=== PATIENT | female | born 1950 | race Caucasian/White ===

== ENCOUNTER → 2016-11-22 | Outpatient (CLI) | payer OTHER, MEDICARE ==
[2016-11-22 09:07] LABS: CH 27.3; CHCM 30.7; HCT 38.5 % (34.0-46.0); HDW 2.63; Hypochromasia Moderate; MCH 27.9 pg (25.0-35.0); MCHC 31.2 g/dL (31.0-37.0); MCV 89.2 fL (80.0-100.0); Mean Platelet Volume 7.1; RBC 4.32 m/uL (3.80-5.40); WBC 8.2 k/uL (3.8-10.6)
[2016-11-22 09:20] LABS: Calcium 9.5 mg/dL (8.4-10.2); Potassium 4.4 mmol/L (3.5-5.1); Total Bilirubin 0.7 mg/dL (0.2-1.3); Total Protein 7.3 g/dL (6.3-8.2); Uric Acid 8.7 mg/dL (3.7-7.4)
== END | disposition home or self-care (01) ==
LOC: LABWHC1 08:43
PROVIDERS: ATTEND Internal Medicine
DX: E87.8 Other disorders of electrolyte and fluid balance, not elsewhere classified (principal); D68.8 Other specified coagulation defects; R53.83 Other fatigue; E78.4 Other hyperlipidemia; M10.9 Gout, unspecified
CPT/HCPCS: 36415; 80053; 80061; 82306; 84550; 85027

== ENCOUNTER → 2017-07-16 | Outpatient (CLI) | payer OTHER ==
[2017-07-16 15:15] LABS: CH 28.4; CHCM 30.1; HCT 36.7 % (34.0-46.0); HDW 2.65; HGB 11.2 gm/dL (11.4-16.0); Hypochromasia Marked; MCH 29.1 pg (25.0-35.0); MCHC 30.7 g/dL (31.0-37.0); MCV 94.8 fL (80.0-100.0); Mean Platelet Volume 6.9; RBC 3.87 m/uL (3.80-5.40); RDW 15.5 % (11.5-15.5); WBC 8.1 k/uL (3.8-10.6)
[2017-07-16 15:25] LABS: Calcium 9.4 mg/dL (8.4-10.2)
== END | disposition home or self-care (01) ==
LOC: LABWHC1 14:36
PROVIDERS: ATTEND Internal Medicine
DX: E87.8 Other disorders of electrolyte and fluid balance, not elsewhere classified (principal); R53.83 Other fatigue
CPT/HCPCS: 36415; 80048; 85027

== ENCOUNTER → 2018-01-02 | Outpatient (CLI) | payer OTHER ==
[2018-01-02 13:03] LABS: HCT 35.3 % (34.0-46.0); HGB 11.2 gm/dL (11.4-16.0); Hypochromasia Slight; MCH 28.3 pg (25.0-35.0); MCHC 31.7 g/dL (31.0-37.0); MCV 89.3 fL (80.0-100.0); Mean Platelet Volume 7.4; Platelet Count 261 k/uL (150-450); RBC 3.96 m/uL (3.80-5.40); RDW 15.4 % (11.5-15.5); WBC 7.1 k/uL (3.8-10.6)
[2018-01-02 13:05] LABS: Albumin 3.8 g/dL (3.5-5.0); Calcium 9.7 mg/dL (8.4-10.2); Potassium 4.1 mmol/L (3.5-5.1); Total Bilirubin 0.4 mg/dL (0.2-1.3); Total Protein 6.7 g/dL (6.3-8.2)
== END | disposition home or self-care (01) ==
LOC: LABWHC1 12:05
PROVIDERS: ATTEND Internal Medicine
DX: E78.4 Other hyperlipidemia (principal); R53.83 Other fatigue; E87.8 Other disorders of electrolyte and fluid balance, not elsewhere classified; M10.9 Gout, unspecified
CPT/HCPCS: 36415; 80053; 80061; 84550; 85027

== ENCOUNTER → 2018-01-16 | Outpatient (CLI) | payer OTHER ==
[2018-01-16 12:50] LABS: Calcium 9.2 mg/dL (8.4-10.2)
== END ==
LOC: LABWHC1 11:32
PROVIDERS: ATTEND Internal Medicine
DX: E87.8 Other disorders of electrolyte and fluid balance, not elsewhere classified (principal)
CPT/HCPCS: 36415; 80048

== ENCOUNTER → 2018-01-26 | Outpatient (CLI) | payer OTHER ==
[2018-01-26 10:10] LABS: INR 1.3 (<1.2); Prothrombin Time 12.5 sec (9.0-12.0)
== END | disposition home or self-care (01) ==
LOC: LABWHC1 08:48
PROVIDERS: ATTEND Internal Medicine
DX: M79.1 Myalgia (principal)
CPT/HCPCS: 36415; 82550; 85610

== ENCOUNTER 2018-01-29 11:24 | Inpatient (IN) | payer OTHER, MEDICARE ==
--- NOTE | 2018-01-29 11:44 | ED ---
SOB HPI - General Chief Complaint: Shortness of Breath Stated Complaint: JONATHAN, POSS BLOOD CLOT Time Seen by Provider: 01/29/18 11:32 Source: patient, family Mode of arrival: wheelchair Limitations: no limitations - History of Present Illness Initial Comments: This 68-year-old white female presents with a complaint of some shortness of breath which is been present over the last 2 days. It has been present to a lesser degree for the last 2 weeks . She states that she feels very weak as well and at this time is unable to ambulate due to her weakness. She denies any chest pain, cough, or fevers. She does complain of some pain to her left calf region laterally. There is a history of previous DVT and PE. She normally is on Coumadin for this. She also has a clotting disorder. Her Coumadin was stopped this past week as she had a tooth pulled 2 days ago. She denies any other known Cardiologic or pulmonary pathology. She relates that the shortness of breath is better when she lies down flat and is worse when she sits up or tries to exert herself. No other modifying factors or complaints. She was sent in by her primary care physician to rule out the possibility of a blood clot. She denies any history of coronary artery disease or myocardial infarction. She states that she has never had a stress test or heart catheterization in the past. - Related Data Home Medications Medication Instructions Recorded Confirmed Allopurinol 100 mg PO DAILY 07/21/14 01/29/18 Warfarin [Coumadin] 2.5 mg PO AC-SUPPER 07/21/14 01/29/18 traMADol HCL [Tramadol HCl] 100 mg PO BID 07/21/14 01/29/18 Cholecalciferol [Vitamin D3] 1,000 unit PO DAILY 01/29/18 01/29/18 Meloxicam [Mobic] 15 mg PO DAILY 01/29/18 01/29/18 Sertraline [Zoloft] 50 mg PO DAILY 01/29/18 01/29/18 Allergies Allergy/AdvReac Type Severity Reaction Status Date / Time aspirin Allergy Rash/Hives Verified 01/29/18 12:24 codeine Allergy Itching Verified 01/29/18 12:24 Review of Systems ROS Statement: Those systems with pertinent positive or pertinent negative responses have been documented in the HPI. ROS Other: All systems not noted in ROS Statement are negative. Past Medical History Past Medical History: Cancer, Deep Vein Thrombosis (DVT), Hypertension, Osteoarthritis (OA), Pulmonary Embolus (PE) Additional Past Medical History / Comment(s): mthfr, uterine cancer, gout History of Any Multi-Drug Resistant Organisms: None Reported Past Surgical History: Hysterectomy, Orthopedic Surgery Additional Past Surgical History / Comment(s): plate and screws in right ankle Past Anesthesia/Blood Transfusion Reactions: No Reported Reaction Past Psychological History: No Psychological Hx Reported Smoking Status: Never smoker Past Alcohol Use History: None Reported Past Drug Use History: None Reported - Past Family History Mother Family Medical History: Cancer Additional Family Medical History / Comment(s): BREAST Father Family Medical History: Coronary Artery Disease (CAD) General Exam - General Exam Comments Initial Comments: GENERAL: The patient is well nourished and well hydrated. VITAL SIGNS: Heart rate, blood pressure, respiratory rate reviewed as recorded in nurse's notes. EYES: Pupils are round and reactive. Extraocular movements are intact. No conjunctival / lid redness or swelling. ENT: No external evidence of injury, swelling, or ecchymosis. Airway is patent. Throat is clear. NECK: Nontender. No swelling or evidence of injury. No subcutaneous emphysema. Trachea is midline. No thyroid mass. HEART: Regular rate and rhythm. Good peripheral pulses. LUNGS/CHEST: Breath sounds clear and equal bilaterally. No rales, rhonchi, or wheezes. No ecchymosis, subcutaneous emphysema, or tenderness. ABDOMEN: Abdomen soft without tenderness. No palpable masses or organomegaly. No peritoneal signs. No abdominal wall swelling or ecchymosis. Patient is morbidly obese. EXTREMITIES: There is minimal tenderness over the left lateral calf but no swelling noted. Normal muscle tone and function. No thoracolumbar tenderness. NEUROLOGIC: Sensation is grossly intact. Cranial nerve exam reveals face is symmetrical, tongue is midline, speech is clear. SKIN: No abrasions or ecchymosis is noted. No induration or masses noted. PSYCHIATRIC: Alert and oriented. Appropriate behavior and judgment. Limitations: no limitations Course Vital Signs 01/29/18 01/29/18 11:26 13:41 Temperature 97.8 F 97.8 F Pulse Rate 101 H 86 Respiratory 24 18 Rate Blood Pressure 146/84 132/60 O2 Sat by Pulse 99 98 Oximetry Medical Decision Making - Medical Decision Making The patient was seen and examined. All diagnostics are reviewed. An IV is established and she is placed on the rn cardiac. The EKG is completed and this does not show any ST-T wave changes noted with a normal sinus rhythm at a rate of 93. The MD intervals 144, QRS duration is 94, and the QTC intervals 479. This is compared to the 08/29/2014 EKG and appears to show improvement in the ST T-wave changes in leads 1 and aVL. The x-ray was read out as not showing any acute cardiopulmonary processes. The possibility of some cardiomegaly is plausible. She also had laboratory analysis which showed elevation of her renal function studies, elevation of cardiac enzymes, anemia, and decreased renal function. The lower extremity venous Doppler was negative for any evidence of DVT is visualized. The d-dimer is also elevated. It is felt as though she is at fairly high risk for the possibility of a pulmonary embolism as she is been off her Coumadin and her INR is only 1.3. Heparin is started. A computed tomography angiogram of the chest could not be done as the patient's renal function is poor. It is felt as though she may benefit from a VQ scan in the near future. It is felt as though the possibility of acute coronary syndrome certainly is possible as well. The case is discussed with primary care physician and he is agreeable with admission with cardiology to consult. - Lab Data Result diagrams: 01/29/18 12:00 01/29/18 12:00 Lab Results 01/29/18 01/29/18 01/29/18 Range/Units 12:00 12:00 12:00 WBC 7.9 (3.8-10.6) k/uL RBC 3.86 (3.80-5.40) m/uL Hgb 10.8 L (11.4-16.0) gm/dL Hct 34.1 (34.0-46.0) % MCV 88.3 (80.0-100.0) fL MCH 27.9 (25.0-35.0) pg MCHC 31.6 (31.0-37.0) g/dL RDW 15.5 (11.5-15.5) % Plt Count 310 (150-450) k/uL Neutrophils % 80 % Lymphocytes % 12 % Monocytes % 5 % Eosinophils % 0 % Basophils % 0 % Neutrophils # 6.3 (1.3-7.7) k/uL Lymphocytes # 1.0 (1.0-4.8) k/uL Monocytes # 0.4 (0-1.0) k/uL Eosinophils # 0.0 (0-0.7) k/uL Basophils # 0.0 (0-0.2) k/uL PT (9.0-12.0) sec INR (<1.2) APTT (22.0-30.0) sec D-Dimer (<0.60) mg/L FEU Sodium 143 (137-145) mmol/L Potassium 3.9 (3.5-5.1) mmol/L Chloride 105 (98-107) mmol/L Carbon Dioxide 25 (22-30) mmol/L Anion Gap 13 mmol/L BUN 30 H (7-17) mg/dL Creatinine 1.76 H (0.52-1.04) mg/dL Est GFR (CKD-EPI)AfAm 33 (>60 ml/min/1.73 sqM) Est GFR (CKD-EPI)NonAf 29 (>60 ml/min/1.73 sqM) Glucose 110 H (74-99) mg/dL Calcium 9.6 (8.4-10.2) mg/dL Total Bilirubin 0.5 (0.2-1.3) mg/dL AST 28 (14-36) U/L ALT 28 (9-52) U/L Alkaline Phosphatase 50 (38-126) U/L Total Creatine Kinase 99 (30-135) U/L CK-MB (CK-2) 2.5 H* (0.0-2.4) ng/mL CK-MB (CK-2) Rel Index 2.5 Troponin I 0.037 H* (0.000-0.034) ng/mL NT-Pro-B Natriuret Pep pg/mL Total Protein 6.4 (6.3-8.2) g/dL Albumin 3.9 (3.5-5.0) g/dL 01/29/18 01/29/18 Range/Units 12:00 12:00 WBC (3.8-10.6) k/uL RBC (3.80-5.40) m/uL Hgb (11.4-16.0) gm/dL Hct (34.0-46.0) % MCV (80.0-100.0) fL MCH (25.0-35.0) pg MCHC (31.0-37.0) g/dL RDW (11.5-15.5) % Plt Count (150-450) k/uL Neutrophils % % Lymphocytes % % Monocytes % % Eosinophils % % Basophils % % Neutrophils # (1.3-7.7) k/uL Lymphocytes # (1.0-4.8) k/uL Monocytes # (0-1.0) k/uL Eosinophils # (0-0.7) k/uL Basophils # (0-0.2) k/uL PT 12.1 H (9.0-12.0) sec INR 1.3 H (<1.2) APTT 23.8 (22.0-30.0) sec D-Dimer 0.98 H (<0.60) mg/L FEU Sodium (137-145) mmol/L Potassium (3.5-5.1) mmol/L Chloride (98-107) mmol/L Carbon Dioxide (22-30) mmol/L Anion Gap mmol/L BUN (7-17) mg/dL Creatinine (0.52-1.04) mg/dL Est GFR (CKD-EPI)AfAm (>60 ml/min/1.73 sqM) Est GFR (CKD-EPI)NonAf (>60 ml/min/1.73 sqM) Glucose (74-99) mg/dL Calcium (8.4-10.2) mg/dL Total Bilirubin (0.2-1.3) mg/dL AST (14-36) U/L ALT (9-52) U/L Alkaline Phosphatase (38-126) U/L Total Creatine Kinase (30-135) U/L CK-MB (CK-2) (0.0-2.4) ng/mL CK-MB (CK-2) Rel Index Troponin I (0.000-0.034) ng/mL NT-Pro-B Natriuret Pep 14425 pg/mL Total Protein (6.3-8.2) g/dL Albumin (3.5-5.0) g/dL Disposition Clinical Impression: Dyspnea, Pain of left calf, Hypertension, Morbid obesity, Weakness, Inability to walk, History of pulmonary embolism, History of DVT (deep vein thrombosis), Clotting disorder, Subtherapeutic international normalized ratio (INR), KATIA ( acute kidney injury), Elevated troponin, NSTEMI (non-ST elevated myocardial infarction), Anemia, Elevated d-dimer Disposition: ADMITTED IP TO THIS HOSP Condition: Fair Is patient prescribed a controlled substance at d/c from ED?: No Time of Disposition: 14:02 Decision Date: 01/29/18 Decision Time: 14:02
[2018-01-29 12:10] LABS: Basophils % (A) 0 %; Eosinophils % (A) 0 %; HCT 34.1 % (34.0-46.0); HGB 10.8 gm/dL (11.4-16.0); Lymphocytes % (A) 12 %; MCH 27.9 pg (25.0-35.0); MCHC 31.6 g/dL (31.0-37.0); MCV 88.3 fL (80.0-100.0); Mean Platelet Volume 7.9; Monocytes # (A) 0.4 k/uL (0-1.0); Monocytes % (A) 5 %; Neutrophils # (A) 6.3 k/uL (1.3-7.7); Neutrophils % (A) 80 %; Platelet Count 310 k/uL (150-450); RBC 3.86 m/uL (3.80-5.40); RDW 15.5 % (11.5-15.5); WBC 7.9 k/uL (3.8-10.6)
[2018-01-29 12:22] LABS: Albumin 3.9 g/dL (3.5-5.0); Calcium 9.6 mg/dL (8.4-10.2); Potassium 3.9 mmol/L (3.5-5.1); Total Bilirubin 0.5 mg/dL (0.2-1.3); Total Protein 6.4 g/dL (6.3-8.2)
[2018-01-29 12:27] LABS: INR 1.3 (<1.2); Partial Thromboplastin Time 23.8 sec (22.0-30.0); Prothrombin Time 12.1 sec (9.0-12.0)
[2018-01-29 12:30] LABS: D-Dimer 0.98 mg/L FEU (<0.60)
--- NOTE | 2018-01-29 12:33 | XR ---
EXAMINATION TYPE: XR chest 2V DATE OF EXAM: 01/29/2018 COMPARISON: None HISTORY: Lower extremity weakness and numbness TECHNIQUE: Frontal and lateral views of the chest are obtained. FINDINGS: Copious soft tissues have a gradient effect partially obscuring the lower lungs. No focal consolidation, pleural effusion or pneumothorax is seen. Cardiomediastinal silhouette is enlarged. Mi ld acromioclavicular arthropathy and moderate degenerative changes of the thoracic spine are noted. N o sizable pleural effusion or pneumothorax. IMPRESSION: No acute cardiopulmonary process.
[2018-01-29 12:43] LABS: Creatine Kinase MB 2.5 ng/mL (0.0-2.4)
[2018-01-29 12:44] LABS: Troponin I 0.037 ng/mL (0.000-0.034)
--- NOTE | 2018-01-29 13:42 | US ---
EXAMINATION TYPE: US venous doppler duplex LE DATE OF EXAM: 01/29/2018 1:26 PM COMPARISON: NONE CLINICAL HISTORY: Pain. Patient states she was off coumadin for a few days for dental procedure. Lt leg is sore. Hx of left popliteal vn DVT. Difficulty breathing. SIDE PERFORMED: Bilateral TECHNIQUE: The lower extremity deep venous system is examined utilizing real time linear array sonog valeria with graded compression, doppler sonography and color-flow sonography. VESSELS IMAGED: External Iliac Vein (EIV) Common Femoral Vein Deep Femoral Vein Greater Saphenous Vein * Femoral Vein Popliteal Vein Small Saphenous Vein * Proximal Calf Veins (* superficial vessels) Limited exam due to patient body habitus Right Leg: Negative for DVT Left Leg: Negative for DVT Grayscale, color doppler, spectral doppler imaging performed of the deep veins of the lower extremiti es. There is normal flow, compressibility, vascular waveforms. IMPRESSION: No evident deep venous thrombosis at or above the knees, technologist reports a somewha t limited exam, consider follow-up as indicated in 24 to 48 hours
[2018-01-29] MEDS ORDERED: HEPARIN SODIUM,PORCINE 5,000 UNIT/ML 1 ML VIAL IV PRN (14:02)
[2018-01-29] MEDS ORDERED: HEPARIN SODIUM,PORCINE 10,000 UNIT/ML 1 ML VIAL IV ONE (14:02)
[2018-01-29] MEDS ORDERED: NITROGLYCERIN OINT 1 INCH/GM PACKET TOPICAL STA (14:04)
[2018-01-29] MEDS ORDERED: NITROGLYCERIN SL TABS 0.4 MG TAB SUBLINGUAL PRN (14:06)
[2018-01-29] MEDS: HEPARIN SOD,PORK IN 0.45% NACL 25,000 UNIT in 0.45% NACL 1 500ML.BAG IV SCH (14:39)
--- NOTE | 2018-01-29 16:28 | NM ---
EXAMINATION TYPE: NM pul vent and perfuse DATE OF EXAM: 01/29/2018 COMPARISON: 01/29/2018 chest x-ray HISTORY: Lower extremity weakness vomiting, difficulty breathing TECHNIQUE: Utilizing inhalation of 39.0 mCi Tc 99m DTPA aerosol and intravenous injection of 5.21 mC i of Tc 99m MAA, ventilation and perfusion images are acquired post injection in multiple projections . FINDINGS: There is a fixed defect the posterior lung. Moderate or large mismatched defects are not evident. No triple matched defect is evident. IMPRESSION: Low probability for pulmonary embolism based on PIOPED 2 criteria.
[2018-01-29] MEDS ORDERED: WARFARIN 2.5 MG TAB PO SCH (17:30)
[2018-01-29 18:42] LABS: Creatine Kinase MB 2.4 ng/mL (0.0-2.4)
[2018-01-29 18:49] LABS: Troponin I 0.043 ng/mL (0.000-0.034)
[2018-01-29] MEDS: traMADol 50 MG TAB PO SCH (21:42)
[2018-01-29] MEDS: FAMOTIDINE 20 MG/2 ML VIAL IV SCH (21:42)
--- NOTE | 2018-01-29 21:58 | HP ---
HISTORY AND PHYSICAL Mrs. Pal is a 68-year-old female who presented to the emergency room with a complaint of shortness of breath. HISTORY OF PRESENT ILLNESS: The patient states that the last couple of days she has become more and more short of breath with minimal exertion. She has also had marked weakness over the past 2- 3 weeks, with it getting harder to get up and ambulate with weakness, shortness of breath. She denies any fever, chills or cough and actually denied any chest pain associated with this. Basically patient does have a previous history of a deep vein thrombosis and a pulmonary embolus in the past, for which she has been on Coumadin but had to stop that last week because of a dental procedure. She did resume her Coumadin, though, on Friday. The patient does have an underlying history of morbid obesity along with hypertension and previous history of deep vein thrombophlebitis and pulmonary embolus in the past. The patient had a total hysterectomy for uterine cancer approximately 4 years previous. She has some diffuse degenerative joint disease and history of gout in the past. No definite history of myocardial infarction, diabetes or stroke. The patient has a history of rash and hives with ASPIRIN and also itching with CODEINE in the past but has been able to tolerate tramadol at home for pain. HOME MEDICATIONS: 1. Mobic 15 mg daily. 2. Zoloft 50 mg daily. 3. Allopurinol 100 mg daily. 4. Coumadin 2.5 mg daily. 5. Tramadol 100 mg twice a day. 6. Vitamin D3 1000 units daily. REVIEW OF SYSTEMS: Negative for any unusual headache. She has had some nausea but no vomiting. Once again, no fever, chills, cough or chest pain. Denied any urinary or bowel symptomatology. She has had some increasing edema and some villeda pain, but no marked swelling. No hemoptysis. No hematuria or hematochezia. Review of systems is negative for any unusual headache or visual disturbance. No fever or chills. No new neurological symptomatology. PAST SURGICAL HISTORY: 1. Previous hysterectomy. 2. Right ankle surgery with plate and screws inserted. FAMILY HISTORY: Positive for diabetes but negative for heart disease. SOCIAL HISTORY: The patient has no history of smoking. 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 Lives with her locally in the area in [place]. No history of any excessive alcohol intake. PHYSICAL EXAMINATION: Temperature 97.8, pulse 89, respiration 16, blood pressure 126/56. She is 99% on 2 L. Head and neck exam is unremarkable. LUNGS: Generally clear, although diminished at bases with heart tones being regular without definite murmurs or rubs. Breast exam did not reveal any definitive palpable lesions. ABDOMEN: Markedly obese but soft. No rebound, guarding or masses detected. Extremities revealed some mild erythema of the distal legs bilaterally which were nontender. Homans sign was negative. Minimal pedal edema. Neurologically, she was alert. Cranial nerves intact. Moving all extremities without focal deficits noted. LAB TESTS: White count of 7.9, hemoglobin 10.8, and a platelet count of 310. INR still only 1.3, subtherapeutic. PTT 23.9 and her D-dimer was slightly elevated at 0.98. Sodium is 143 with a potassium of 3.9, BUN of 30 with creatinine 1.76, giving her a GFR of 29. Blood sugar 110. CK-MB is 99 with a 2.5 CK-MB. Her troponin was 0.037 and shaggy to 0.043. BNP markedly elevated at 12,300. Albumin was 3.9. Testing revealed her chest x-ray to show no acute cardiopulmonary process, but there did appear to be some cardiomegaly. No definite sizable pleural effusion was noted. EKG showed a normal sinus rhythm, no definite ischemic changes; poor R-wave progression anteriorly noted. Patient had venous Doppler studies performed, and although somewhat inadequate studies, they were ruled negative for DVT bilaterally. Also a V/Q scan was performed, as with her renal failure, CT scan with contrast was precluded. V/Q scan showed low probability of pulmonary embolus. IMPRESSION: This is a lady with increasing shortness of breath and elevated BNP and mildly elevated troponins. We will rule out underlying ischemic heart disease. At this point there is no definite evidence for DVT or pulmonary embolus. Patient does have severe underlying morbid obesity along with previous history of DVT and pulmonary embolus; also has a history of hypertension and acute on chronic renal failure along with history of previous hysterectomy for uterine cancer and hypertension. PLAN: At this point patient to be placed on heparin. We will continue to hold Coumadin for now, pending cardiology opinion in the morning. Repeat EKG and enzymes. Echocardiogram and further recommendations and treatment pending clinical response and results of above. If she stabilizes and is cleared by Cardiology, then we will proceed with further physical and occupational therapy to assess underlying weakness and ability to return to independent living or not. MMVON / CHELAN: [id number] / MTDD
[2018-01-30] MEDS: NITROGLYCERIN OINT 1 INCH/GM PACKET TOPICAL SCH ×5 (03:34→23:14)
[2018-01-30 04:05] LABS: Basophils % (A) 0 %; Eosinophils # (A) 0.2 k/uL (0-0.7); Eosinophils % (A) 3 %; HCT 29.8 % (34.0-46.0); Hypochromasia Moderate; Lymphocytes # (A) 1.6 k/uL (1.0-4.8); Lymphocytes % (A) 26 %; MCH 27.3 pg (25.0-35.0); MCHC 30.3 g/dL (31.0-37.0); MCV 89.9 fL (80.0-100.0); Mean Platelet Volume 7.6; Monocytes # (A) 0.4 k/uL (0-1.0); Monocytes % (A) 6 %; Neutrophils # (A) 4.1 k/uL (1.3-7.7); Neutrophils % (A) 64 %; Platelet Count 238 k/uL (150-450); RBC 3.31 m/uL (3.80-5.40); RDW 15.7 % (11.5-15.5); WBC 6.4 k/uL (3.8-10.6)
[2018-01-30] MEDS: HEPARIN SOD,PORK IN 0.45% NACL 25,000 UNIT in 0.45% NACL 1 500ML.BAG IV SCH ×3 (04:40→23:09)
[2018-01-30 04:44] LABS: Creatine Kinase MB 1.8 ng/mL (0.0-2.4)
[2018-01-30 04:46] LABS: Troponin I 0.047 ng/mL (0.000-0.034)
[2018-01-30 05:03] LABS: C Reactive Protein 15.4 mg/L (<10.0); Magnesium 1.5 mg/dL (1.6-2.3)
--- NOTE | 2018-01-30 07:51 | ECHOF ---
Referral Reason:sob MEASUREMENTS -------- HEIGHT: 157.5 cm WEIGHT: 94.8 kg BP: 132/60 RVIDd: 2.3 cm (< 3.3) IVSd: 1.1 cm (0.6 - 1.1) LVIDd: 6.1 cm (3.9 - 5.3) LVPWd: 1.1 cm (0.6 - 1.1) IVSs: 1.3 cm LVIDs: 5.4 cm LVPWs: 1.3 cm LA Diam: 4.5 cm (2.7 - 3.8) LAESV Index (A-L): 50.48 ml/m Ao Diam: 2.7 cm (2.0 - 3.7) LA Diam: 3.8 cm (2.7 - 3.8) MV EXCURSION: 14.751 mm (> 18.000) MV EF SLOPE: 62 mm/s (70 - 150) EPSS: 2.3 cm MV E Iker: 0.47 m/s MV DecT: 204 ms MV A Iker: 0.67 m/s MV E/A Ratio: 0.70 RAP: 5.00 mmHg RVSP: 31.30 mmHg FINDINGS -------- Sinus rhythm. Morbid Obesity The left ventricle is moderately dilated. Left ventricular wall thickness is normal. There is mod erate global hypokinesis of LV . Overall left ventricular systolic function is moderate-severely im paired with, an EF between 30 - 35 %. Inferior Hypokinesis The right ventricle is normal in size. The left atrium is mildly dilated. LA is severely dilated >40 ml/m2 The right atrial size is normal. Lumason used The aortic valve was not well visualized. Mild mitral regurgitation is present. Mild tricuspid regurgitation present. There is no evidence of pulmonary hypertension. The right v entricular systolic pressure, as measured by Doppler, is 31.30mmHg. The pulmonic valve was not well visualized. The aortic root size is normal. There is no pericardial effusion. CONCLUSIONS -------- 1. Morbid Obesity 2. The left ventricle is moderately dilated. 3. Left ventricular wall thickness is normal. 4. There is moderate global hypokinesis of LV . 5. Overall left ventricular systolic function is moderate-severely impaired with, an EF between 30 - 35 %. 6. Inferior Hypokinesis 7. The left atrium is mildly dilated. 8. LA is severely dilated >40 ml/m2 9. Lumason used 10. The aortic valve was not well visualized. 11. Mild mitral regurgitation is present. 12. Mild tricuspid regurgitation present. 13. There is no evidence of pulmonary hypertension. 14. The right ventricular systolic pressure, as measured by Doppler, is 31.30mmHg. 15. The pulmonic valve was not well visualized. 16. The aortic root size is normal. 17. There is no pericardial effusion. VOLUNTEER SPECIALIST: Collette Chaidez RDCS
--- NOTE | 2018-01-30 07:59 | CONS ---
CONSULTATION Mrs. Pal is a 68-year-old female with known history of hypertension, prior history of DVT and pulmonary embolism 9 years ago following DVT in the knee, who presented with symptoms of a week of dyspnea, progressive fatigue, not associated with any other symptoms. She has no prior cardiac history. She has no clear PND or orthopnea. She has chronic peripheral edema. She has occasional dizziness but no palpitation or syncope. She has no prior cardiac history. In the emergency room, she was noted to have mild elevation of troponin and elevation of NT proBNP. The patient is not very active physically. She has no recent cardiac workup. Her coronary risk factors are remarkable for hypertension. She is nondiabetic, nonsmoker and not hyperlipidemic. REVIEW OF SYSTEMS: RESPIRATORY SYSTEM: She has dyspnea on exertion, but no history of obstructive lung disease. No recent wheezing or cough. GI SYSTEM: No recent GI bleeding. No peptic ulcer disease. SYSTEM: No dysuria or hematuria. NERVOUS SYSTEM: No history of stroke or seizure. MEDICATIONS: Medications at home included Coumadin, tramadol, Zoloft mg daily, Mobic 15 mg daily, vitamin D and allopurinol. She was off the Coumadin for 4 days to undergo tooth extraction. ALLERGIES: Allergy to ASPIRIN, which causes hives. PHYSICAL EXAMINATION: She is a 68-year-old female, alert, oriented, in no apparent distress, lying supine. Blood pressure 127/58 with the heart rate in the 80s. HEAD: Normocephalic. EYES: Sclerae anicteric. NECK: Good carotid upstroke. No bruit. Unable to evaluate jugular venous pressure. LUNGS: Clear to auscultation. HEART: Regular rate and rhythm, S1, S2. No S3 with systolic murmur ejection type heard at the bases and no diastolic murmur. ABDOMEN: Soft, obese. Positive bowel sounds. No organomegaly. EXTREMITIES: No edema, +2 distal pulses. LAB DATA: Lab data revealed a hemoglobin of 10.8 on admission, 9.0 today. Her D-dimer 0.98. BUN and creatinine 30 and 1.76. Potassium 3.9. Troponin 0.037, 0.043 and 0.047. Her NT proBNP is 12,300. Cholesterol 138, LDL of 64. TSH 0.98. EKG revealed a sinus mechanism with a normal axis and intervals. No acute changes. V/Q scan revealed no evidence pulmonary embolism. Chest x-ray revealed no acute infiltrate. IMPRESSION: 1. Progressive dyspnea of unclear etiology with an elevation of the NT proBNP yet clinically, she has no symptoms of congestive heart failure and her x-ray is not consistent with that. 2. Mild elevation in troponin of unclear etiology. Patient has no symptoms of chest pain and her EKG shows no significant changes. The possibility of non ST-segment elevation myocardial infarction could not be totally excluded. 3. Remote history of pulmonary embolism with no evidence recurrence. 4. Anemia. 5. Chronic kidney disease. 6. Morbid obesity. RECOMMENDATION: From the cardiac standpoint, I will obtain echocardiogram with Doppler to evaluate her left ventricular systolic function. In the meantime, I will continue present therapy. I will add to her regimen a beta armin. The patient may require coronary angiography, but that carries a high risk in view of her renal function. We will await the results of the echo and depending on her progress, further recommendation will be made. Thank you for this consult. We will follow with you. NAN / CHELAN: [id number] /
--- NOTE | 2018-01-30 08:12 | P.PN ---
Progress Note - Text The patient is a 68-year-old female presented yesterday with shortness of breath. The patient has had a previous history of DVT and pulmonary embolus and had been off her Coumadin due to a dental procedure but workup with venous Doppler and VQ scan has been negative. Patient did have an elevated BNP but no definite clinical signs of overt congestive heart failure. Patient is obese. Also with degenerative joint disease. Has had marked difficulty ambulating at home. This morning she denies any chest pain. No unusual shortness of breath at rest. No nausea or vomiting. Patient is complaining of right hip pain. Temperature is 97.8 with a pulse of 87 respirations 18. Blood pressure is 127/ 58 and she is 95% saturated. Lung and heart examination is clear and regular at this time. Abdomen is nontender. No marked edema but mild erythema of the distal legs. No focal neurological deficits. Laboratory White count is 6.4 with hemoglobin has dropped from 10.8 down to 9.0. Platelets are 238. Her PTT was elevated on heparin at 113. Magnesium slightly low at 1.5. Troponins are mildly elevated the last 1.047. C-reactive protein is 15.4. Her LDL is low at 64. Impressions and plans Patient has been seen by cardiology. She does have a markedly elevated BNP. No definite overt symptoms or signs of congestive heart failure other than her shortness of breath. She also has mildly elevated troponins. She also now has a mild anemia of unknown etiology at this time. History of hypertension and chronic kidney disease. At this time we'll await results of echocardiogram. Consultation will be placed with nephrology. We will await for patient to be more stable in terms of engaging physical therapy and also obtaining right hip x-ray. We'll await further recommendations from cardiology and nephrology as discussed with patient at bedside. Repeat labs ordered for tomorrow. Continue to hold Coumadin.
[2018-01-30] MEDS: CHOLECALCIFEROL 1,000 UNIT TAB PO SCH (08:32)
[2018-01-30] MEDS: SERTRALINE 50 MG TAB PO SCH (08:32)
[2018-01-30] MEDS: ALLOPURINOL 100 MG TAB PO SCH (08:32)
[2018-01-30] MEDS: traMADol 50 MG TAB PO SCH ×2 (08:37→20:52)
[2018-01-30] MEDS: FAMOTIDINE 20 MG/2 ML VIAL IV SCH (08:43)
[2018-01-30] MEDS: METOPROLOL TARTRATE 25 MG TAB PO SCH ×2 (08:43→20:55)
[2018-01-30] MEDS ORDERED: MELOXICAM 7.5 MG TAB PO SCH (09:00)
[2018-01-30] MEDS ORDERED: ASPIRIN 81 MG PO SCH (09:00)
[2018-01-30] MEDS ORDERED: MAGNESIUM SULFATE-D5W PMX 1 GM in DEXTROSE/WATER 1 100ML.BAG IVPB ONE (13:00)
--- NOTE | 2018-01-30 13:38 | P.NPCON ---
History of Present Illness - Reason for Consult acute renal failure, chronic renal failure - History of Present Illness Reason for consultation: Acute kidney injury on chronic kidney disease History of present illness: Patient is a 68-year-old female seen in renal consultation for acute kidney injury on chronic kidney disease. Patient has chronic kidney disease stage III. Baseline creatinine near 1.4-1.5. It was elevated at 1.76 on admission yesterday. Patient presented to the hospital with dyspnea and generalized weakness. Patient states she gets dyspneic mostly with exertion and also feels quite weak due to pain in her hips. She does have history of arthritis and states she takes Mobic on a daily basis. She's been taking Mobic for the last 5 years at least. No evidence of DVT was noted. Low probability of PE was noted on VQ scan. Chest x-ray revealed no evidence of fluid overload. She is noted to have systolic heart failure with ejection fraction of 30-35%. She denies edema. Denies orthopnea or PND. Oral intake is good. No vomiting or diarrhea. Denies family history of renal disease. No history of diabetes. Overall her dyspnea is improved. Hemodynamically stable. Vital signs are stable. General: The patient appeared well nourished and normally developed. HEENT: Head exam is unremarkable. Neck is without jugular venous distension. LUNGS: Lungs are clear to auscultation and percussion. Breath sounds decreased. HEART: Rate and Rhythm are regular. First and second heart sounds normal. No murmurs, rubs or gallops. ABDOMEN: Abdominal exam reveals normal bowel sounds. Non-tender and non- distended. No evidence of peritonitis. EXTREMITITES: No clubbing, cyanosis, or edema. Mild erythema of the ankle noted. Past Medical History Past Medical History: Blood Disorder, Cancer, Deep Vein Thrombosis (DVT), Hypertension, Osteoarthritis (OA), Pulmonary Embolus (PE) Additional Past Medical History / Comment(s): mthfr, uterine cancer(sx only), gout, anemia. uses 4 prong cane when up. History of Any Multi-Drug Resistant Organisms: None Reported Past Surgical History: Hysterectomy, Orthopedic Surgery Additional Past Surgical History / Comment(s): plate and screws in right ankle, picc line-since removed, cortisone injections to knees Past Anesthesia/Blood Transfusion Reactions: No Reported Reaction Additional Past Anesthesia/Blood Transfusion Reaction / Comment(s): past blood transfusions-no reactions Smoking Status: Never smoker - Past Family History Mother Family Medical History: Cancer Additional Family Medical History / Comment(s): BREAST Father Family Medical History: Coronary Artery Disease (CAD) Medications and Allergies Home Medications Medication Instructions Recorded Confirmed Type Allopurinol 100 mg PO DAILY 07/21/14 01/29/18 History Warfarin [Coumadin] 2.5 mg PO AC-SUPPER 07/21/14 01/29/18 History traMADol HCL [Tramadol HCl] 100 mg PO BID 07/21/14 01/29/18 History Cholecalciferol [Vitamin D3] 1,000 unit PO DAILY 01/29/18 01/29/18 History Meloxicam [Mobic] 15 mg PO DAILY 01/29/18 01/29/18 History Sertraline [Zoloft] 50 mg PO DAILY 01/29/18 01/29/18 History Allergies Allergy/AdvReac Type Severity Reaction Status Date / Time aspirin Allergy Rash/Hives Verified 01/29/18 12:24 codeine Allergy Itching Verified 01/29/18 12:24 Physical Exam Vitals: Vital Signs Temp Pulse Pulse Resp BP BP Pulse Ox 01/30/18 03:29 97.8 F 87 18 127/58 95 01/30/18 00:05 98.4 F 96 18 106/59 94 L 01/29/18 20:00 98.6 F 92 18 123/59 94 L 01/29/18 16:40 98.3 F 89 16 126/56 99 01/29/18 16:37 99 01/29/18 16:02 97.7 F 86 18 146/76 100 01/29/18 13:41 97.8 F 86 18 132/60 98 Intake and Output 01/29/18 01/30/18 01/30/18 22:59 06:59 14:59 Intake Total 556.633 187.123 140.406 Output Total 200 Balance 556.633 -12.877 140.406 Intake: Intake, IV Titration 316.633 187.123 140.406 Amount Heparin Sod,Pork in 0.45% 316.633 187.123 140.406 NaCl 25,000 unit In 0.45 % NaCl 1 500ml.bag @ 16. 41 UNITS/KG/HR 46 mls/hr IV .[id number] [facility] Rx#: [id number] Oral 240 Output: Urine 200 Other: Voiding Method Bedside Commode Bedside Commode # Voids 1 1 # Bowel Movements 0 Weight 133.1 kg Results - Lab Results Most recent lab results Calcium 9.6 mg/dL (8.4-10.2) 01/29/18 12:00 Magnesium 1.5 mg/dL (1.6-2.3) L 01/30/18 03:35 01/30/18 03:35 01/29/18 12:00 Assessment and Plan Plan: Assessment: #1. Nonoliguric acute kidney injury mostly prerenal secondary to nonsteroidals. Creatinine 1.76 on admission yesterday. #2. Chronic kidney disease stage III with baseline creatinine near 1.5. Etiology is likely chronic interstitial nephritis from long-term use of NSAIDs. #3. Systolic CHF with ejection fraction 30-35%. Currently appears compensated. #4. Anemia. Rule out iron deficiency. #5. Dyspnea with exertion. No evidence of acute coronary syndrome. Generalized debility along with arthritis and obesity are contribute factors. No evidence of fluid overload. No evidence of PE. #6. Morbid obesity. Plan: Encourage oral intake. Check iron studies. Avoid nephrotoxic agents and hypotensive episodes. I discussed with her the impairment of renal function with long-term use of nonsteroidals. I advised her to take Mobic less frequently and to try Tylenol arthritis instead. Patient understands. Repeat electrolytes in the morning. Thank you for the consultation. I will continue to follow patient with you during her hospital stay.
[2018-01-30 18:53] LABS: Iron Saturation 21.22 (12.00-45.00)
[2018-01-30] MEDS: FAMOTIDINE 20 MG TAB PO SCH (20:55)
[2018-01-30 22:23] LABS: Appearance,Urine Cloudy (Clear); Bacteria,Urine Many /hpf; Bilirubin,Urine Negative (Negative); Blood,Urine Negative (Negative); Color,Urine Yellow; Glucose,Urine (UA) Negative (Negative); Hyaline Casts,Urine 3 /lpf (0-2); Ketones,Urine Negative (Negative); Leukocyte Esterase,Urine Small (Negative); Mucus,Urine Rare /hpf; Nitrite,Urine Negative (Negative); PH, Urine 5.5 (5.0-8.0); Protein,Urine Trace (Negative); RBC,Urine <1 /hpf (0-5); Specific Gravity,Urine 1.021 (1.001-1.035); Squamous Epithelial Cell,Urine 20 /hpf (0-4); Urobilinogen,Urine <2.0 mg/dL (<2.0); WBC,Urine 5 /hpf (0-5)
[2018-01-31] MEDS: NITROGLYCERIN OINT 1 INCH/GM PACKET TOPICAL SCH ×2 (05:41→11:41)
[2018-01-31 06:02] LABS: Basophils % (A) 1 %; Eosinophils # (A) 0.2 k/uL (0-0.7); Eosinophils % (A) 2 %; HCT 34.4 % (34.0-46.0); HGB 10.7 gm/dL (11.4-16.0); Hypochromasia Slight; Lymphocytes # (A) 1.5 k/uL (1.0-4.8); Lymphocytes % (A) 19 %; MCH 28.3 pg (25.0-35.0); MCV 91.3 fL (80.0-100.0); Mean Platelet Volume 7.4; Monocytes # (A) 0.4 k/uL (0-1.0); Monocytes % (A) 6 %; Neutrophils # (A) 5.5 k/uL (1.3-7.7); Neutrophils % (A) 70 %; Platelet Count 285 k/uL (150-450); RBC 3.77 m/uL (3.80-5.40); RDW 15.6 % (11.5-15.5); WBC 7.7 k/uL (3.8-10.6)
[2018-01-31 06:35] LABS: Calcium 9.8 mg/dL (8.4-10.2); Magnesium 1.8 mg/dL (1.6-2.3); Potassium 4.7 mmol/L (3.5-5.1)
[2018-01-31] MEDS: METOPROLOL TARTRATE 25 MG TAB PO SCH ×2 (08:43→20:55)
[2018-01-31] MEDS: FAMOTIDINE 20 MG TAB PO SCH ×2 (08:43→20:55)
[2018-01-31] MEDS: ALLOPURINOL 100 MG TAB PO SCH (08:43)
[2018-01-31] MEDS: SERTRALINE 50 MG TAB PO SCH (08:43)
[2018-01-31] MEDS: CHOLECALCIFEROL 1,000 UNIT TAB PO SCH (08:43)
[2018-01-31] MEDS: HEPARIN SOD,PORK IN 0.45% NACL 25,000 UNIT in 0.45% NACL 1 500ML.BAG IV SCH (08:44)
[2018-01-31] MEDS: traMADol 50 MG TAB PO SCH ×2 (08:46→20:55)
--- NOTE | 2018-01-31 09:57 | P.PN ---
Progress Note - Text The patient is a morbidly obese 68-year-old who presented with shortness of breath and weakness. This was to the extent that she wasn't able to get up and ambulate in her home. She was also having some right hip discomfort. She had been off her Coumadin which she takes for previous history of DVT and pulmonary embolus secondary to recent dental procedure. On presentation patient did have a marked BNP level without definite clinical signs or symptoms of congestive heart failure. Patient also has acute on chronic kidney disease stage III-4. Patient has been evaluated by cardiology and nephrology. Today she is lying in bed. Her son is in the room with her. The patient does not appear to be in any major distress at rest. Denies any chest pain or unusual shortness of breath. No nausea or vomiting. Vital signs reveal temperature of 97.8 with a pulse of 70 respirations 18. Blood pressure is 132/60 and she is 93% saturated. Lung and heart examination is clear although diminished at bases. Abdomen is nontender. No unusual edema. She is alert and oriented without focal weakness noted. Laboratory Today her hemoglobin is better at 10.7. It was 9.0 yesterday. Question lab error. White count is some 0.7 with a platelet count of 285. She is still on heparin and her PTT is 63.7. Electrolytes are primarily unremarkable with a sodium 143 potassium 4.7. BUN of 29 with creatinine 1.8 given her GFR of 28. Calcium and magnesium were normal. Urinalysis only revealed 5 white cells. Small amount of leukocyte esterase. Nitrates were normal. One blood culture from the has been growing coagulase-negative staph. Likely a contaminant. Second blood culture was sent yesterday. Echocardiogram did show moderate global hypokinesis and ejection fraction between 30 and 35%. Impressions and plans Patient presently remains on heparin and off her Coumadin. We'll await further recommendations from cardiology. We will obtain x-rays of her back and hips which apparently were causing her much disability and inability to ambulate at home. Also will have her evaluated by physical therapy. This was discussed with patient and son at bedside this morning. Dr. Montesinos projection camera operator for me over the weekend if any medical concerns should arise.
--- NOTE | 2018-01-31 10:48 | P.PN ---
Subjective Progress Note Date: 01/31/18 Principal diagnosis: This is 68-year-old obese female who was admitted with shortness of breath. She was noted to be in mild acute kidney injury secondary to combination of nonsteroidals. She had workup included normal Doppler of her legs and remains low probability lung scan. A chest x-ray is reported to be normal but to me looks like there may be mild congestive heart failure. She is known in the past with DVT and PE Patient's chest shortness of breath which is more than her usual self. No chest pain no cough fever chills. One culture grew coagulase negative staph but she has no other evidence of any bacteremia. Continues to have pain in her hip joints and knees. Objective - Vital Signs Vital signs: Vital Signs Temp 98.4 F 01/31/18 07:45 Pulse 84 01/31/18 07:45 Resp 18 01/31/18 07:45 BP 120/57 01/31/18 07:45 Pulse Ox 93 L 01/31/18 08:51 Intake & Output 01/30/18 01/31/18 01/31/18 18:59 06:59 18:59 Intake Total 490.406 336.683 515.354 Output Total 200 Balance 490.406 136.683 515.354 Weight 133.4 kg Intake: Intake, IV Titration 140.406 336.683 279.354 Amount Heparin Sod,Pork in 0.45% 140.406 336.683 279.354 NaCl 25,000 unit In 0.45 % NaCl 1 500ml.bag @ 16. 41 UNITS/KG/HR 46 mls/hr IV .[id number] [facility] Rx#: [id number] Oral 350 236 Output: Urine 200 Other: Voiding Method Bedside Commode Bedside Commode # Voids 2 1 On examination she is awake alert oriented comfortable sitting on the bedside. HEENT exam no JVP neck is supple somewhat difficult exam because of the obesity. Lungs are significant for diminished air entry but clear to auscultation. No dullness percussion Heart sounds are unremarkable for any murmur rub gallop Abdomen is obese protuberant difficult to examine but nontender Extremity exam was trace edema Neuro exam was unremarkable or all. - Labs CBC & Chem 7: 01/31/18 05:19 01/31/18 05:19 Labs: Abnormal Lab Results - Last 24 Hours (Table) 01/30/18 01/30/18 01/31/18 Range/Units 12:58 21:50 05:19 RBC 3.77 L (3.80-5.40) m/uL Hgb 10.7 L (11.4-16.0) gm/dL RDW 15.6 H (11.5-15.5) % APTT 64.1 H (22.0-30.0) sec Chloride (98-107) mmol/L BUN (7-17) mg/dL Creatinine (0.52-1.04) mg/dL Urine Appearance Cloudy H (Clear) Urine Protein Trace H (Negative) Ur Leukocyte Esterase Small H (Negative) Ur Squamous Epith Cells 20 H (0-4) /hpf Urine Bacteria Many H (None) /hpf Hyaline Casts 3 H (0-2) /lpf Urine Mucus Rare H (None) /hpf 01/31/18 01/31/18 Range/Units 05:19 05:39 RBC (3.80-5.40) m/uL Hgb (11.4-16.0) gm/dL RDW (11.5-15.5) % APTT 63.7 H (22.0-30.0) sec Chloride 109 H (98-107) mmol/L BUN 29 H (7-17) mg/dL Creatinine 1.80 H (0.52-1.04) mg/dL Urine Appearance (Clear) Urine Protein (Negative) Ur Leukocyte Esterase (Negative) Ur Squamous Epith Cells (0-4) /hpf Urine Bacteria (None) /hpf Hyaline Casts (0-2) /lpf Urine Mucus (None) /hpf Microbiology - Last 24 Hours (Table) 01/29/18 12:00 Blood Culture Gram Stain - Preliminary Blood Blood Culture - Preliminary Coagulase Negative Staph 01/29/18 12:00 Blood Culture - Final Blood Assessment and Plan Assessment: Impression 1. Acute kidney injury from nonsteroidals. Her creatinine was 1.76 on admission, went up to 1.8 this morning. 2. Chronic kidney disease with a baseline creatinine of 1.61 dated 01/16/2018 but she has ranged between 1.4-2.2 over the last 1 year. Etiology is nephrosclerosis. 3. History of a poor ejection fraction of 30-35% with systolic and his heart failure. Currently short of breath clinically lungs are clear but I'm not sure what the chest x-ray findings although the radiologist reported normal. 4. Anemia hemoglobin is 10.7 as of this morning up from 9 yesterday, but was 10.8 earlier therefore the lab report of 9 may be an area 5. Mild degree of non-gap acidosis with bicarb of 22 secondary to acute kidney injury and chronic kidney disease. 6. Hypomagnesemia magnesium 1.5 likely from diuretics resolved. 7. Admitted with shortness of breath with past history of DVT and PE and workup so far negative. Possible congestive heart failure Plan- 1. Will give her 1 low dose of Lasix 20 mg and see how she feels. 2. Check orthostatic pressure changes 3. Obtain BMP and BNP
--- NOTE | 2018-01-31 10:48 | XR ---
EXAMINATION TYPE: XR lumbosacral spine min 4V , 5 VIEWS DATE OF EXAM ORDERED: 01/31/2018 HISTORY: pain, no trauma. COMPARISON: Previous study dated 10/17/2009. FINDINGS: There is a worsening levoscoliosis. There is fairly severe spondylosis deformans at the th oracolumbar junction. There is a degenerative grade 1 bordering on grade 2 spondylolisthesis of L4 an d L5. There is some wedging of the L1 vertebral body which has progressed from previous. There is a s uperior endplate infraction of T12. There is some wedging of the T11 vertebral body which is also pro gressed. There is fairly severe facet arthropathy. IMPRESSION: MARKED WORSENING IN THE DEGREE OF DEGENERATIVE CHANGE IN COMPARISON WITH 2009. MULTIPLE COMPRESSION F RACTURES LIKELY REFLECTS OSTEOPOROSIS.
--- NOTE | 2018-01-31 10:49 | XR ---
EXAMINATION TYPE: XR Hip Bilateral Complete , 4 VIEWS DATE OF EXAM ORDERED: 01/31/2018 HISTORY: pain, no trauma. COMPARISON: None. FINDINGS: Both femoral heads are mildly nonspherical. No fracture or dislocation is seen. IMPRESSION: PLEASE CORRELATE FOR FEMOROACETABULAR IMPINGEMENT SYNDROME.
[2018-01-31] MEDS ORDERED: FUROSEMIDE 10 MG/ML 2 ML VIAL IV ONE (11:00)
[2018-01-31] MEDS: FUROSEMIDE 10 MG/ML 4 ML VIAL IV SCH ×2 (16:32→20:55)
[2018-01-31] MEDS: SACUBITRIL/VALSARTAN 24 MG-26 MG TABLET PO SCH ×2 (17:59→23:37)
--- NOTE | 2018-01-31 20:27 | PN ---
PROGRESS NOTE This patient is admitted with the symptoms of progressive shortness of breath and fatigue of 1 week duration. She is comfortable. Patient is morbidly obese. Echocardiogram revealed moderate to severely impaired left ventricular systolic function with ejection fraction in the range of 30-35%. Patient has a history of hypertension, there is no definite prior history of myocardial infarction. Blood pressure is 131/72 mmHg. First and second heart sounds are normal. Respirations are not labored. Lungs examination reveals bilateral diminished air entry. No significant leg edema was noted. The patient has a borderline elevated troponin which are not definitely suggestive of acute coronary syndrome. The patient has a chronic kidney disease. Hemoglobin is 10.7. We will start the patient on Entresto 24/26 mg twice a day. Continue the current medications. The patient's IV Lasix can be discontinued tomorrow. Further studies for anemia benefit from the patient is iron deficient will benefit from the iron transfusion. MMODL / IJN: [id number] /
[2018-02-01 06:54] LABS: Basophils % (A) 1 %; Eosinophils # (A) 0.2 k/uL (0-0.7); Eosinophils % (A) 3 %; HCT 32.4 % (34.0-46.0); HGB 10.1 gm/dL (11.4-16.0); Hypochromasia Slight; Lymphocytes # (A) 1.2 k/uL (1.0-4.8); Lymphocytes % (A) 17 %; MCHC 31.2 g/dL (31.0-37.0); MCV 89.7 fL (80.0-100.0); Mean Platelet Volume 7.4; Monocytes # (A) 0.4 k/uL (0-1.0); Monocytes % (A) 6 %; Neutrophils # (A) 5.1 k/uL (1.3-7.7); Neutrophils % (A) 72 %; Platelet Count 259 k/uL (150-450); RBC 3.61 m/uL (3.80-5.40); RDW 15.8 % (11.5-15.5); WBC 7.1 k/uL (3.8-10.6)
[2018-02-01 07:11] LABS: Calcium 9.9 mg/dL (8.4-10.2); Potassium 4.3 mmol/L (3.5-5.1)
[2018-02-01] MEDS: METOPROLOL TARTRATE 25 MG TAB PO SCH ×2 (08:10→20:10)
[2018-02-01] MEDS: FAMOTIDINE 20 MG TAB PO SCH ×2 (08:10→20:09)
[2018-02-01] MEDS: ALLOPURINOL 100 MG TAB PO SCH (08:10)
[2018-02-01] MEDS: FUROSEMIDE 10 MG/ML 4 ML VIAL IV SCH ×2 (08:10→20:09)
[2018-02-01] MEDS: CHOLECALCIFEROL 1,000 UNIT TAB PO SCH (08:11)
[2018-02-01] MEDS: SERTRALINE 50 MG TAB PO SCH (08:11)
[2018-02-01] MEDS: SACUBITRIL/VALSARTAN 24 MG-26 MG TABLET PO SCH ×2 (08:11→20:12)
[2018-02-01] MEDS: traMADol 50 MG TAB PO SCH ×2 (08:15→20:14)
--- NOTE | 2018-02-01 09:56 | P.PN ---
Progress Note - Text The patient is a morbidly obese 68-year-old to presented with shortness of breath and weakness. She has also been having right hip area pain along with her chronic lumbar pain that is making markedly difficult for her to ambulate. She also has a history of previous DVT and pulmonary embolus for which she was on Coumadin prior to admission. The patient has had acute on chronic kidney disease along with acute on chronic systolic congestive heart failure. She is being evaluated by nephrology and cardiology and please refer to their notes. This morning she is sitting up at the side of the bed. Denies any chest pain or shortness of breath at rest. No nausea or vomiting. Vital signs reveal a pulse of 74 with respirations 18 and blood pressure 129/ 68. She is 92% saturated. Lung and heart exam is clear although diminished at bases. Abdomen is obese. Mild pedal edema noted. No focal neurological deficits. Laboratory White count is 7.1 with a hemoglobin 10.1 and a platelet count of 259. BUN is 34 with creatinine of 2.0 given her a GFR of 35. Sodium is 143 with potassium 4.3. BNP is 8530. X-rays of the hips revealing the possibility of femoral acetabular impingement syndrome. Lumbar x-rays revealed worsening of degenerative changes along with multiple compression fractures. Impressions and plans At this point to physical therapy has been ordered and we are awaiting their evaluation. Discussed again reasons for holding her anti-inflammatory medication. Mobic. In light of her underlying chronic kidney disease. Discussed x-rays of her hip and back. We'll ask orthopedics to evaluate for any recommendations. She has been seen as an outpatient in the past. We'll await further recommendations from nephrology and cardiology. Resume Coumadin therapy for her DVT and pulmonary embolus history. Laboratory evaluation for osteoporosis workup and follow-up INR ordered for tomorrow. Outpatient bone density testing. Discussed reasons for consults, testing and treatment with patient this morning at bedside. Dr. Montesinos accounting consultant over today for me if any medical concerns should arise.
--- NOTE | 2018-02-01 10:52 | P.PN ---
Subjective Progress Note Date: 02/01/18 Principal diagnosis: This is 68-year-old obese female who was admitted with shortness of breath. She was noted to be in mild acute kidney injury secondary to combination of nonsteroidals. She had workup included normal Doppler of her legs and low probability lung scan. A chest x-ray is reported to be normal but to me looks like there may be mild congestive heart failure. She is known in the past with DVT and PE Patient's had complained off shortness of breath which is more than her usual self, she was therefore given Lasix IV 20 mg yesterday she did respond with large amount of urine output per patient but only 1400 mL are recorded she is much better today with less feeling of weakness and tiredness. She does feel somewhat dizzy when she stands up. This is more mentally and resolves.. Her creatinine did go up from 1.8-2 No chest pain no cough fever chills. One culture grew coagulase negative staph but she has no other evidence of any bacteremia. Continues to have pain in her hip joints and knees. Objective - Vital Signs Vital signs: Vital Signs Temp 98.5 F 02/01/18 08:00 Pulse 82 02/01/18 08:00 Resp 18 02/01/18 08:00 BP 130/77 02/01/18 08:00 Pulse Ox 96 02/01/18 08:00 Intake & Output 01/31/18 02/01/18 02/01/18 18:59 06:59 18:59 Intake Total 752.354 Output Total 400 1000 Balance 352.354 -1000 Weight 131 kg Intake: Intake, IV Titration 279.354 Amount Heparin Sod,Pork in 0.45% 279.354 NaCl 25,000 unit In 0.45 % NaCl 1 500ml.bag @ 16. 41 UNITS/KG/HR 46 mls/hr IV .[id number] [facility] Rx#: [id number] Oral 473 Output: Urine 400 1000 Other: Voiding Method Bedside Commode Bedside Commode Bedside Commode # Voids 4 # Bowel Movements 2 On examination she is awake alert oriented comfortable on room air HEENT exam no JVP difficult exam. Neck is supple no facial asymmetry Lungs are clear to auscultation percussion good air entry bilaterally. Heart sounds are unremarkable for any murmur rub gallop Abdomen is soft nontender obese protuberant Extremity exam reveals mild edema Neurologically awake alert oriented - Labs CBC & Chem 7: 02/01/18 06:02 02/01/18 06:02 Labs: Abnormal Lab Results - Last 24 Hours (Table) 02/01/18 02/01/18 Range/Units 06:02 06:02 RBC 3.61 L (3.80-5.40) m/uL Hgb 10.1 L (11.4-16.0) gm/dL Hct 32.4 L (34.0-46.0) % RDW 15.8 H (11.5-15.5) % BUN 34 H (7-17) mg/dL Creatinine 2.00 H (0.52-1.04) mg/dL Microbiology - Last 24 Hours (Table) 01/29/18 12:00 Blood Culture Gram Stain - Final Blood Blood Culture - Final Coagulase Negative Staph 01/30/18 12:58 Blood Culture - Preliminary Blood No Growth after 24 hours 01/30/18 10:45 Blood Culture - Preliminary Blood No Growth after 24 hours 01/30/18 21:50 Urine Culture - Preliminary Urine,Clean Catch Assessment and Plan Assessment: Impression 1. Acute kidney injury from nonsteroidals. Her creatinine was 1.76 on admission, went up to 1.8 and with addition of Lasix yesterday creatinine went up to this morning. 2. Chronic kidney disease with a baseline creatinine of 1.61 dated 01/16/2018 but she has ranged between 1.4-2.2 over the last 1 year. Etiology is nephrosclerosis. 3. History of a poor ejection fraction of 30-35% with systolic and his heart failure. Currently short of breath is at baseline and improved. 4. Anemia hemoglobin is ranging between 10.7-10.1 this morning 5. Mild degree of non-gap acidosis with bicarb of 22 secondary to acute kidney injury and chronic kidney disease. This morning bicarb is up to 28 likely secondary to the Lasix. 6. Hypomagnesemia magnesium 1.5 likely from diuretics resolved. Magnesium is 1.8 7. Admitted with shortness of breath with past history of DVT and PE and workup so far negative. Possible congestive heart failure Plan- 1. Hold Lasix 2. Check orthostatic pressure changes 3. Obtain BMP and BNP 4. May be discharged as per the discretion of the primary physician and she will need to be followed up very closely in the nephrology office with daily weights daily blood pressure and if possible measure urine output. She will require frequent lab tests to see how her renal function is and adjustment of diuretics. Currently she can be discharged without any Lasix but conditional to her being followed up in the office at her primary physician or our office within the next 2 days after discharge
--- NOTE | 2018-02-01 11:01 | P.PN ---
Subjective Principal diagnosis: This is 68-year-old obese female who was admitted with shortness of breath. She was noted to be in mild acute kidney injury secondary to combination of nonsteroidals. She had workup included normal Doppler of her legs and low probability lung scan. A chest x-ray is reported to be normal but to me looks like there may be mild congestive heart failure. She is known in the past with DVT and PE Patient's had complained off shortness of breath which is more than her usual self, she was therefore given Lasix IV 20 mg yesterday she did respond with large amount of urine output per patient but only 1400 mL are recorded she is much better today with less feeling of weakness and tiredness. She does feel somewhat dizzy when she stands up. This is more mentally and resolves.. Her creatinine did go up from 1.8-2 No chest pain no cough fever chills. One culture grew coagulase negative staph but she has no other evidence of any bacteremia. Continues to have pain in her hip joints and knees. Objective - Vital Signs Vital signs: Vital Signs Temp 98.5 F 02/01/18 08:00 Pulse 82 02/01/18 08:00 Resp 18 02/01/18 08:00 BP 130/77 02/01/18 08:00 Pulse Ox 96 02/01/18 08:00 Intake & Output 01/31/18 02/01/18 02/01/18 18:59 06:59 18:59 Intake Total 752.354 Output Total 400 1000 Balance 352.354 -1000 Weight 131 kg Intake: Intake, IV Titration 279.354 Amount Heparin Sod,Pork in 0.45% 279.354 NaCl 25,000 unit In 0.45 % NaCl 1 500ml.bag @ 16. 41 UNITS/KG/HR 46 mls/hr IV .[id number] [facility] Rx#: [id number] Oral 473 Output: Urine 400 1000 Other: Voiding Method Bedside Commode Bedside Commode Bedside Commode # Voids 4 # Bowel Movements 2 On examination she is awake alert oriented comfortable HEENT exam no JVP although said difficult exam because of the obesity neck is supple no facial asymmetry Heart sounds are unremarkable for any murmur rub gallop Lungs are clear to auscultation percussion good air entry bilaterally Abdomen soft nontender obese Extremity exam was moderate edema Neurologically awake alert oriented - Labs CBC & Chem 7: 02/01/18 06:02 02/01/18 06:02 Labs: Abnormal Lab Results - Last 24 Hours (Table) 02/01/18 02/01/18 Range/Units 06:02 06:02 RBC 3.61 L (3.80-5.40) m/uL Hgb 10.1 L (11.4-16.0) gm/dL Hct 32.4 L (34.0-46.0) % RDW 15.8 H (11.5-15.5) % BUN 34 H (7-17) mg/dL Creatinine 2.00 H (0.52-1.04) mg/dL Microbiology - Last 24 Hours (Table) 01/29/18 12:00 Blood Culture Gram Stain - Final Blood Blood Culture - Final Coagulase Negative Staph 01/30/18 12:58 Blood Culture - Preliminary Blood No Growth after 24 hours 01/30/18 10:45 Blood Culture - Preliminary Blood No Growth after 24 hours 01/30/18 21:50 Urine Culture - Preliminary Urine,Clean Catch Assessment and Plan Assessment: Impression 1. Acute kidney injury from nonsteroidals. Her creatinine was 1.76 on admission, went up to 1.8 and with addition of Lasix yesterday creatinine went up to 2 this morning. She actually received the 20 mg I ordered and further 40 mg ordered by cardiology last night and this morning 2. Chronic kidney disease with a baseline creatinine of 1.61 dated 01/16/2018 but she has ranged between 1.4-2.2 over the last 1 year. Etiology is nephrosclerosis. 3. History of a poor ejection fraction of 30-35% with systolic and his heart failure. Currently short of breath is at baseline and improved. 4. Anemia hemoglobin is ranging between 10.7-10.1 this morning 5. Mild degree of non-gap acidosis with bicarb of 22 secondary to acute kidney injury and chronic kidney disease. This morning bicarb is up to 28 likely secondary to the Lasix. 6. Hypomagnesemia magnesium 1.5 likely from diuretics resolved. Magnesium is 1.8 7. Admitted with shortness of breath with past history of DVT and PE and workup so far negative. Possible congestive heart failure Plan- 1. Check orthostatic pressure changes. 2. Adjust dose of Lasix based on orthostatic changes. 3. Obtain BMP and BNP 4. May be discharged as per the discretion of the primary physician and she will need to be followed up very closely in the nephrology office with daily weights daily blood pressure and if possible measure urine output. She will require frequent lab tests to see how her renal function is and adjustment of diuretics. Currently she can be discharged Lasix 20 mg a day but conditional to her being followed up in the office at her primary physician or our office within the next 2 days after discharge
--- NOTE | 2018-02-01 12:17 | P.CNOR ---
History of Present Illness - [facility] Consult date: 02/01/18 Consult reason: other (Right hip and low back pain) History of present illness: The patient is seen and examined today at bedside. She is a very pleasant 68- year-old female who was admitted to the hospital due to shortness of breath and difficulty breathing. She has been having workup with medicine and cardiology in regards to this and is continue management for her cardiac issues. She says that she has been having right hip pain over the past few weeks. She feels that this is worsening for her and giving her significant difficulty with any sort of ambulation. She does not feel at this pain is making improvement. She denies any trauma and she denies any falls. She denies any problems at her right hip her back in the past. She admits to prior issues with her knees and osteoarthritis at her bilateral knees which had been treated with Dr. Ifeanyi gutierrez at her office appropriately. She has great difficulty with trying to get up and move around. She has history of morbid obesity as well as her cardiac issues and osteoarthritis. Review of Systems She was admitted regards to her shortness of breath and chest pain with heavy breathing. She is continuing medical and cardiac management for this. She says she did have problems with her back approximately 20 years ago and underwent epidural steroid injections in the past. She denies any prior knowledge of any fractures at her lumbar spine. She feels that she has difficulty with moving due to her pain at her right side of her lower back and right hip. She denies any specific weakness in her leg. She has significant pain in her bilateral knees with history of osteoarthritis. This has been giving her trouble for years. Past Medical History Past Medical History: Blood Disorder, Cancer, Deep Vein Thrombosis (DVT), Hypertension, Musculoskeletal Disorder (Obesity. Bilateral osteoarthritis bilateral knees.), Osteoarthritis (OA), Pulmonary Embolus (PE) Additional Past Medical History / Comment(s): mthfr, uterine cancer(sx only), gout, anemia. uses 4 prong cane when up. History of Any Multi-Drug Resistant Organisms: None Reported Past Surgical History: Hysterectomy, Orthopedic Surgery Additional Past Surgical History / Comment(s): plate and screws in right ankle, picc line-since removed, cortisone injections to knees Past Anesthesia/Blood Transfusion Reactions: No Reported Reaction Additional Past Anesthesia/Blood Transfusion Reaction / Comm: past blood transfusions-no reactions Smoking Status: Never smoker - Past Family History Mother Family Medical History: Cancer Additional Family Medical History / Comment(s): BREAST Father Family Medical History: Coronary Artery Disease (CAD) Medications and Allergies Home Medications Medication Instructions Recorded Confirmed Type Allopurinol 100 mg PO DAILY 07/21/14 01/29/18 History Warfarin [Coumadin] 2.5 mg PO AC-SUPPER 07/21/14 01/29/18 History traMADol HCL [Tramadol HCl] 100 mg PO BID 07/21/14 01/29/18 History Cholecalciferol [Vitamin D3] 1,000 unit PO DAILY 01/29/18 01/29/18 History Meloxicam [Mobic] 15 mg PO DAILY 01/29/18 01/29/18 History Sertraline [Zoloft] 50 mg PO DAILY 01/29/18 01/29/18 History Allergies Allergy/AdvReac Type Severity Reaction Status Date / Time aspirin Allergy Rash/Hives Verified 01/29/18 12:24 codeine Allergy Itching Verified 01/29/18 12:24 Physical Examination Osteopathic Statement: *. No significant issues noted on an osteopathic structural exam other than those noted in the History and Physical/Consult. - L Spine: dermatomal strength & reflexes bilateral Strength: hip flexion: 5/5 (The patient is morbidly obese. She has significant trouble with any sort of mobilization. At her back there is no open wounds lacerations or abrasions. There is no ecchymosis. She does have tenderness to palpation over her right side of her lower back and paravertebral spasm in the right side over her right gluteus. This seems to be the primary area of her pain. She is not having severe pain with internal rotation of her hips. She has some crepitus motion at her bilateral knees but she has good range of motion at her knees bilaterally. She has sustained dorsal/plantar flexion and EHL. She has some venous stasis skin change just at her bilateral ankles) Results - Labs Labs: Abnormal Lab Results - Last 24 Hours (Table) 02/01/18 02/01/18 Range/Units 06:02 06:02 RBC 3.61 L (3.80-5.40) m/uL Hgb 10.1 L (11.4-16.0) gm/dL Hct 32.4 L (34.0-46.0) % RDW 15.8 H (11.5-15.5) % BUN 34 H (7-17) mg/dL Creatinine 2.00 H (0.52-1.04) mg/dL Microbiology - Last 24 Hours (Table) 01/30/18 21:50 Urine Culture - Final Urine,Clean Catch 01/29/18 12:00 Blood Culture Gram Stain - Final Blood Blood Culture - Final Coagulase Negative Staph 01/30/18 12:58 Blood Culture - Preliminary Blood No Growth after 24 hours 01/30/18 10:45 Blood Culture - Preliminary Blood No Growth after 24 hours H & H 01/29/18 01/30/18 01/31/18 Range/Units 12:00 03:35 05:19 Hgb 10.8 L 9.0 L D 10.7 L (11.4-16.0) gm/dL Hct 34.1 29.8 L 34.4 (34.0-46.0) % 02/01/18 Range/Units 06:02 Hgb 10.1 L (11.4-16.0) gm/dL Hct 32.4 L (34.0-46.0) % Coagulation 01/29/18 Range/Units 12:00 INR 1.3 H (<1.2) Result Diagrams: 02/01/18 06:02 02/01/18 06:02 - Diagnostic results Lumbar AP/lateral x-ray: report reviewed, image reviewed (Imaging of her lumbar spine and her hips. At her hips she has some mild degenerative changes at her bilateral hips with osteoarthritic change with no evidence of fracture.At her low back she has significant changes. She has a degenerative scoliosis to her low back. She has a grade 2 spondylolisthesis at L4 5. She is evidence of osteopenia. She has evidence of compression deformities and wedging at T11-T12 and L1. It is difficult to determine if this is new for her. She does have some increased wedging and degenerative scoliosis as compared to prior films.) Assessment and Plan Assessment: Right hip pain due to lumbar issues and exacerbation of lumbar degenerative disease and possible new compression fracture at L1 and T12 and T11. Spondylolisthesis L4 5. Morbid obesity. Mild arthritis bilateral hips Significant arthritis bilateral knees Acute cardiac issues being managed with medicine and cardiology Plan: Right hip pain due to lumbar issues and exacerbation of lumbar degenerative disease and possible new compression fracture at L1 and T12 and T11. Spondylolisthesis L4 5. Morbid obesity. Mild arthritis bilateral hips Significant arthritis bilateral knees Acute cardiac issues being managed with medicine and cardiology We are seeing the patient in regards to her right hip pain which seems to stem primarily from her lumbar spine. She has severe changes at her lumbar spine and may have an acute new compression fractures at T 11 T12 and L1. She has a degenerative scoliosis with significant facet arthritis and a spondylolisthesis at L4 5. All of these can contribute significantly to her low back pain. She did not have any specific fall or trauma but with the amount of change that she had certainly this can give her an exacerbation of her pain at any point. The symptoms seem to radiate toward her right hip but her hip seems to be adequately functioning at the joint itself. I do not think that she has an acute hip joint issue. Given her body habitus it is not possible to treat her with a brace for her compression fractures. These can heal adequately with expectant management without a brace and allow them to heal on their own. It is okay for her to try to mobilize and weight-bear as tolerated. Given her cardiac issues her need for Plavix and blood thinners we would not recommend any interventional pain management for her lumbar spine at this point. I do not think that we will plan surgical intervention for her. I like to see how she does with continued conservative treatment and physical therapy as well as pain control for her back and right sided pain. We will have therapy work with her today prove her mobilization. In the future if she continues to have significant issues we could consider interventional pain management or the possibility of kyphoplasty if her symptoms persist but I would wait at least 3-6 weeks before considering these for her given her medical issues currently. For now she can continue with pain control and mobilization with therapy.
[2018-02-01] MEDS: HEPARIN SODIUM,PORCINE 5,000 UNIT/ML 1 ML VIAL SQ SCH ×2 (15:05→22:55)
[2018-02-01 15:40] LABS: INR 1.2 (<1.2); Prothrombin Time 11.8 sec (9.0-12.0)
[2018-02-01] MEDS ORDERED: WARFARIN 7.5 MG TAB PO ONE (18:00)
--- NOTE | 2018-02-01 23:51 | PN ---
PROGRESS NOTE Patient is feeling well. She denies any significant shortness of breath. The patient did not sleep very well but denies any orthopnea or PND. Blood pressure is 129/75. Patient denies any dizziness. The patient is afebrile. Respirations are not labored. First and second heart sounds are normal. Lungs are fairly clear to auscultation and percussion. The patient has lost 2 kg of weight. The patient's creatinine has increased from 1.8 to 2.0. We will repeat the chest x-ray tomorrow. If the chest x-ray shows improvement we will wean the patient off the IV Lasix. The patient's NT proBNP [place] [id number]. The patient will be ambulated. NAN / CHELAN: [id number] /
[2018-02-02 06:46] LABS: Basophils % (A) 1 %; Eosinophils # (A) 0.1 k/uL (0-0.7); Eosinophils % (A) 2 %; HCT 34.7 % (34.0-46.0); Lymphocytes # (A) 1.3 k/uL (1.0-4.8); Lymphocytes % (A) 20 %; MCH 28.2 pg (25.0-35.0); MCHC 31.7 g/dL (31.0-37.0); MCV 89.2 fL (80.0-100.0); Mean Platelet Volume 7.2; Monocytes # (A) 0.3 k/uL (0-1.0); Monocytes % (A) 4 %; Neutrophils # (A) 4.5 k/uL (1.3-7.7); Neutrophils % (A) 71 %; Platelet Count 271 k/uL (150-450); RDW 15.8 % (11.5-15.5); WBC 6.4 k/uL (3.8-10.6)
[2018-02-02 06:49] LABS: INR 1.3 (<1.2); Prothrombin Time 12.3 sec (9.0-12.0)
--- NOTE | 2018-02-02 08:18 | P.PN ---
Progress Note - Text The patient is a 68-year-old morbidly obese female presented with shortness of breath and weakness. She was found to have acute on chronic systolic congestive heart failure and acute on chronic renal failure. Also she has been found to have compression fractures of the lumbar spine which have decreased her mobility. Patient has been seen by cardiology, nephrology and Dr. Ahuja from orthopedics. Patient appears to be lying flat and comfortable this morning. States she went to the bathroom a lot during the night with the Lasix she received yesterday. She denies any chest pain. Vital signs reveal temperature of 97.2 with a pulse of 75 and respirations 18. Blood pressure 143/67 and she is 96% saturated. Lungs sound clear to auscultation. Heart tones were regular. Mild erythema of the distal shins. No marked edema. She is alert and oriented without any cranial nerve weakness or peripheral motor deficits. Laboratory White count is 6.4 with a hemoglobin 11 and a platelet count of 271. INR is 1.3 this morning. Patient has resumed her Coumadin the last couple days. Chest x-ray today is pending. Impressions and plans The patient being treated for acute on chronic systolic congestive heart failure with a moderate to severe impaired ejection fraction of 30-35%. She also is morbidly obese with degenerative joint disease and osteoporosis with likely recent compression fractures of the LS spine. Also acute on chronic renal failure with yesterday's GFR of 25. Discussed with patient this morning. Discussed with cardiac nurses morning. Patient has been able to ambulate better with her walker that she has here. She does have one at home. Cardiology to review today along with her chest x-ray and possible discharge to home if stable. We'll await the recommendations on the use of outpatient Lasix. If patient is discharged do recommend home nursing to follow-up on her daily weights. Electrolytes and renal function. INR. Would recommend that these be done on Friday. Also can be engaged in home physical therapy. Prognosis is guarded in light of the multiple comorbidities. Recommend she receive 10 mg of Coumadin today. 7.5 tomorrow. 5 mg Friday and to have INR, CBC and BMP drawn Friday by home nursing.
[2018-02-02] MEDS: ALLOPURINOL 100 MG TAB PO SCH (08:32)
[2018-02-02] MEDS: HEPARIN SODIUM,PORCINE 5,000 UNIT/ML 1 ML VIAL SQ SCH ×2 (08:32→16:19)
[2018-02-02] MEDS: FUROSEMIDE 10 MG/ML 4 ML VIAL IV SCH (08:32)
[2018-02-02] MEDS: SACUBITRIL/VALSARTAN 24 MG-26 MG TABLET PO SCH ×2 (08:32→20:05)
[2018-02-02] MEDS: SERTRALINE 50 MG TAB PO SCH (08:32)
[2018-02-02] MEDS: METOPROLOL TARTRATE 25 MG TAB PO SCH ×2 (08:32→20:05)
[2018-02-02] MEDS: FAMOTIDINE 20 MG TAB PO SCH (08:32)
[2018-02-02] MEDS: traMADol 50 MG TAB PO SCH ×2 (08:35→20:09)
[2018-02-02 08:46] LABS: Magnesium 1.4 mg/dL (1.6-2.3); Potassium 4.2 mmol/L (3.5-5.1)
[2018-02-02] MEDS ORDERED: SODIUM FERRIC GLUCONAT-SUCROSE 125 MG in SODIUM CHLORIDE 0.9% 100 ML IVPB ONE (08:48)
--- NOTE | 2018-02-02 08:49 | P.PN ---
Subjective Patient is seen in follow-up for acute kidney injury and chronic kidney disease. Patient has chronic kidney disease stage III with baseline creatinine near 1.5. Creatinine was up to 2.0 yesterday. Patient presented with dyspnea and weakness. She does of systolic CHF with ejection fraction of 30-35%. Patient does take Mobic on a daily basis for the last 5 years for arthritis. She is currently maintained on Lasix 40 mg IV twice daily. Admits to good urine output. Denies chest pain or shortness of breath. No vomiting or diarrhea. Vital signs are stable. General: The patient appeared well nourished and normally developed. HEENT: Head exam is unremarkable. Neck is without jugular venous distension. LUNGS: Lungs are clear to auscultation and percussion. Breath sounds decreased. HEART: Rate and Rhythm are regular. First and second heart sounds normal. No murmurs, rubs or gallops. ABDOMEN: Abdominal exam reveals normal bowel sounds. Non-tender and non- distended. No evidence of peritonitis. EXTREMITITES: No clubbing, cyanosis, or edema. Objective - Vital Signs Vital signs: Vital Signs Temp 97.2 F L 02/02/18 04:00 Pulse 75 02/02/18 04:00 Resp 18 02/02/18 04:00 BP 143/67 02/02/18 04:00 Pulse Ox 96 02/02/18 07:19 Intake & Output 02/01/18 02/02/18 02/02/18 18:59 06:59 18:59 Intake Total 550 10 Output Total 350 300 Balance 200 -290 Weight 128.5 kg Intake: IV 10 0.9 10 Oral 550 Output: Urine 350 300 Other: Voiding Method Bedside Commode Bedside Commode - Labs CBC & Chem 7: 02/02/18 05:39 02/01/18 06:02 Labs: Abnormal Lab Results - Last 24 Hours (Table) 02/01/18 02/02/18 02/02/18 Range/Units 15:23 05:39 05:39 Hgb 11.0 L (11.4-16.0) gm/dL RDW 15.8 H (11.5-15.5) % PT 12.3 H (9.0-12.0) sec INR 1.2 H 1.3 H (<1.2) Microbiology - Last 24 Hours (Table) 01/30/18 12:58 Blood Culture - Preliminary Blood No Growth after 48 hours 01/30/18 10:45 Blood Culture - Preliminary Blood No Growth after 48 hours 01/30/18 21:50 Urine Culture - Final Urine,Clean Catch 01/29/18 12:00 Blood Culture Gram Stain - Final Blood Blood Culture - Final Coagulase Negative Staph Assessment and Plan Plan: Assessment: #1. Nonoliguric acute kidney injury secondary to ATN secondary to prerenal syndrome. Creatinine 2.0 as of yesterday. Labs from today are pending at this time. #2. Chronic kidney disease stage III with baseline creatinine near 1.5. Etiology is chronic interstitial nephritis from long-term use of NSAIDs and cardiorenal syndrome. #3. Systolic CHF with ejection fraction 30-35%. #4. Anemia. Mild iron deficiency noted. #5. Dyspnea with exertion. No evidence of acute coronary syndrome. Generalized debility along with arthritis and obesity are contribute factors. No evidence of fluid overload. No evidence of PE. #6. Morbid obesity. Plan: Encourage oral intake. Ferrlecit 125 mg IV once today. Avoid nephrotoxic agents and hypotensive episodes. I discussed with her the impairment of renal function with long-term use of nonsteroidals. I advised her to take Mobic less frequently and to try Tylenol arthritis instead. Patient understands. Repeat electrolytes in the morning. Continue Lasix 40 mg IV twice daily for now - can be tapered starting tomorrow.
[2018-02-02 11:07] LABS: Protein, Total 6.6 g/dL (6.2-8.2)
--- NOTE | 2018-02-02 11:55 | XR ---
EXAMINATION TYPE: XR chest 2V DATE OF EXAM: 02/02/2018 COMPARISON: Chest x-ray from 4 days ago. HISTORY: CHF and difficulty breathing. TECHNIQUE: Frontal and lateral views of the chest are obtained. FINDINGS: Exam is suboptimal secondary to patient's large body habitus. There is no new suspicious fo theron air space opacity, pleural effusion, or pneumothorax seen. The cardiac silhouette size remains e nlarged with perhaps mild central vascular congestion. Prominent multilevel spurring in the spine is seen best on lateral view. IMPRESSION: Cardiomegaly with suspected mild central vascular congestion. No new suspicious focal in filtrate is seen.
[2018-02-02] MEDS: CHOLECALCIFEROL 1,000 UNIT TAB PO SCH (12:23)
--- NOTE | 2018-02-02 13:10 | P.PN ---
Subjective Progress Note Date: 02/02/18 This is a 68-year-old female with known history of hypertension, prior history of DVT and pulmonary embolism, obesity, who presented to the hospital with symptoms of dyspnea and progressive fatigue. Coronary risk factors significant for hypertension, she is a nondiabetic, nonsmoker, no hyperlipidemia. Patient diuresed well on IV Lasix. Chest x-ray done today show some improvement. She is currently on by mouth Lasix. Her creatinine today is 2.3 and her weight is down 3 kg. We will check the patient's lytes BUN and creatinine in the morning, if there is a significant rise in creatinine may consider discontinuing interest oh however the elevated creatinine at this time eachsecondary to diuresis. Overall the patient states that she's feeling significantly better. Objective - Vital Signs Vital signs: Vital Signs Temp 97.6 F 02/02/18 11:45 Pulse 69 02/02/18 11:45 Resp 20 02/02/18 11:45 BP 116/75 02/02/18 11:45 Pulse Ox 94 L 02/02/18 11:45 Intake & Output 02/01/18 02/02/18 02/02/18 18:59 06:59 18:59 Intake Total 550 10 Output Total 350 300 Balance 200 -290 Weight 128.5 kg Intake: IV 10 0.9 10 Oral 550 Output: Urine 350 300 Other: Voiding Method Bedside Commode Bedside Commode - Exam PHYSICAL EXAMINATION: HEENT: Head is atraumatic, normocephalic. Pupils equal, round. Neck is supple. There is no elevated jugular venous pressure. HEART EXAMINATION: Heart S1 S2 1 systolic ejection murmur is heard. CHEST EXAMINATION: Lungs are clear to auscultation and precussion. No chest wall tenderness is noted on palpation or with deep breathing. ABDOMEN: Soft, nontender. Bowel sounds are heard. No organomegaly noted. EXTREMITIES: 2+ peripheral pulses with no evidence of peripheral edema and no calf tenderness noted. NEUROLOGIC patient is awake, alert and oriented -3. . - Labs CBC & Chem 7: 02/02/18 05:39 02/02/18 05:39 Labs: Abnormal Lab Results - Last 24 Hours (Table) 02/01/18 02/02/18 02/02/18 Range/Units 15:23 05:39 05:39 Hgb 11.0 L (11.4-16.0) gm/dL RDW 15.8 H (11.5-15.5) % PT (9.0-12.0) sec INR 1.2 H (<1.2) Carbon Dioxide (22-30) mmol/L BUN (7-17) mg/dL Creatinine (0.52-1.04) mg/dL Magnesium (1.6-2.3) mg/dL PTH Intact 186.8 H (14.0-72.0) pg/mL 02/02/18 02/02/18 Range/Units 05:39 05:39 Hgb (11.4-16.0) gm/dL RDW (11.5-15.5) % PT 12.3 H (9.0-12.0) sec INR 1.3 H (<1.2) Carbon Dioxide 32 H (22-30) mmol/L BUN 40 H (7-17) mg/dL Creatinine 2.37 H (0.52-1.04) mg/dL Magnesium 1.4 L (1.6-2.3) mg/dL PTH Intact (14.0-72.0) pg/mL Microbiology - Last 24 Hours (Table) 01/30/18 10:45 Blood Culture - Preliminary Blood No Growth after 72 hours 01/30/18 12:58 Blood Culture - Preliminary Blood No Growth after 48 hours 01/30/18 21:50 Urine Culture - Final Urine,Clean Catch 01/29/18 12:00 Blood Culture Gram Stain - Final Blood Blood Culture - Final Coagulase Negative Staph Assessment and Plan Plan: Assessment and plan #1 systolic congestive heart failure acute on chronic #2 history of pulmonary embolism and DVT #3 acute on chronic kidney disease #4 morbid obesity #5 anemia Plan Patient is currently on by mouth Lasix. We will continue to monitor creatinine , if there is a significant rise we may consider discontinuing the interest O however the rise in creatinine at this time is likely secondary to diuretics. We will continue her current medications. DNP note has been reviewed, I agree with a documented findings and plan of care. Patient was seen and examined.
[2018-02-02] MEDS ORDERED: WARFARIN 10 MG TAB PO ONE (19:00)
[2018-02-03] MEDS: HEPARIN SODIUM,PORCINE 5,000 UNIT/ML 1 ML VIAL SQ SCH ×4 (00:31→23:11)
[2018-02-03 06:48] LABS: Basophils % (A) 0 %; Eosinophils # (A) 0.2 k/uL (0-0.7); Eosinophils % (A) 3 %; HCT 34.9 % (34.0-46.0); HGB 10.7 gm/dL (11.4-16.0); Hypochromasia Slight; Lymphocytes # (A) 1.6 k/uL (1.0-4.8); Lymphocytes % (A) 24 %; MCH 27.6 pg (25.0-35.0); MCHC 30.7 g/dL (31.0-37.0); MCV 89.7 fL (80.0-100.0); Mean Platelet Volume 7.3; Monocytes # (A) 0.3 k/uL (0-1.0); Monocytes % (A) 5 %; Neutrophils # (A) 4.3 k/uL (1.3-7.7); Neutrophils % (A) 64 %; Platelet Count 254 k/uL (150-450); RBC 3.89 m/uL (3.80-5.40); RDW 15.6 % (11.5-15.5); WBC 6.7 k/uL (3.8-10.6)
[2018-02-03 06:51] LABS: INR 1.5 (<1.2); Prothrombin Time 14.3 sec (9.0-12.0)
[2018-02-03 06:58] LABS: Calcium 9.4 mg/dL (8.4-10.2); Magnesium 1.4 mg/dL (1.6-2.3); Potassium 4.1 mmol/L (3.5-5.1)
--- NOTE | 2018-02-03 08:11 | P.PN ---
Progress Note - Text The patient is a 68-year-old morbidly obese female who is had shortness of breath and weakness. She has acute on chronic systolic congestive heart failure and acute on chronic renal failure. This morning she states she feels okay. She is lying flat in bed. Denies any chest pain. Vital signs blood temperature 90.7 with a pulse of 79 and respirations 16. Blood pressure 104/54 and she is 95% saturated on room air. Lung and heart exam was clear and regular at this time. No unusual distal edema. No focal neurological deficits. Laboratory White count is 6.7 with a hemoglobin 10.7 and a platelet count of 254. INR is 1.5 this morning Electrolytes were unremarkable. BUN is 51 with creatinine of 2.56 giving her a GFR of 18. The patient did lose 1 kg. Yesterday's chest x-ray did show some mild central vascular congestion. Impressions and plans Awaiting final opinion from cardiology and nephrology regarding the medications for home and further recommendations. Patient will have follow-up with home nursing for lab testing along with physical and assessment and weights. Also will continue with physical at home. We will give her 5 mg of Coumadin today with her INR of 1.5.
[2018-02-03] MEDS: METOPROLOL TARTRATE 25 MG TAB PO SCH ×2 (09:07→20:12)
[2018-02-03] MEDS: SACUBITRIL/VALSARTAN 24 MG-26 MG TABLET PO SCH (09:08)
[2018-02-03] MEDS: CHOLECALCIFEROL 1,000 UNIT TAB PO SCH (09:08)
[2018-02-03] MEDS: ALLOPURINOL 100 MG TAB PO SCH (09:08)
[2018-02-03] MEDS: FAMOTIDINE 20 MG TAB PO SCH (09:08)
[2018-02-03] MEDS: FUROSEMIDE 40 MG TAB PO SCH (09:08)
[2018-02-03] MEDS: SERTRALINE 50 MG TAB PO SCH (09:08)
[2018-02-03] MEDS: traMADol 50 MG TAB PO SCH ×2 (09:14→20:11)
--- NOTE | 2018-02-03 14:45 | PN ---
PROGRESS NOTE Patient is seen for followup for acute kidney injury and volume overload. She had been on NSAIDs, which are now discontinued. Lasix was switched to p.o. yesterday. Renal function is slightly worse. Serum creatinine 2.56 from 2.37 yesterday. Patient wants to go home. EXAMINATION: Blood pressure is 121/55, heart rate 80 per minute. She is afebrile. Examination of the heart: S1, S2. Examination lungs: Bilateral breath sounds are heard. Abdomen is soft, morbidly obese. Examination lower extremity shows trace edema bilaterally. Skin exam is grossly intact. LAB: Show sodium 144, potassium 4.1, chloride 101, BUN 61, serum creatinine 2.56, hemoglobin 10.7 g/dL. ASSESSMENT: 1. Acute kidney injury associated with recent diuresis. The patient overall feels well. She is not on any nephrotoxic medication. Her blood pressure is not significantly low. Patient is stable for discharge from Nephrology standpoint. She will need to be followed up as outpatient in about 1 week's time. Lasix is currently at 40 mg p.o. daily, which is appropriate. 2. Chronic kidney disease stage III with baseline creatinine about 1.5 secondary to chronic infestation of softly and cardiorenal syndrome. 3. Congestive heart failure, systolic, acute on top of chronic with ejection fraction 30 to 35%. 4. Morbid obesity. 5. Anemia with iron deficiency status post IV iron. PLAN: Patient is stable for discharge from Nephrology standpoint. Continue the Lasix at the current dose and follow up as outpatient in about 1 weeks time. The patient will need lab work to be done prior to the appointment. If he is not discharged, we will repeat labs in a.m. I believe patient will be staying to obtain a therapeutic INR. MMODL / IJN: [id number] /
[2018-02-03] MEDS: MAGNESIUM SULFATE-D5W PMX 1 GM in DEXTROSE/WATER 1 100ML.BAG IVPB SCH ×2 (16:34→17:34)
[2018-02-03] MEDS: SODIUM CHLORIDE 0.9% 1,000 ML IV SCH (16:35)
--- NOTE | 2018-02-03 16:50 | P.PN ---
Subjective Progress Note Date: 02/03/18 This is a 68-year-old female with known history of hypertension, prior history of DVT and pulmonary embolism, obesity, who presented to the hospital with symptoms of dyspnea and progressive fatigue. Coronary risk factors significant for hypertension, she is a nondiabetic, nonsmoker, no hyperlipidemia. Patient diuresed well on IV Lasix. Chest x-ray done today show some improvement. She is currently on by mouth Lasix. Her creatinine today is 2.3 and her weight is down 3 kg. We will check the patient's lytes BUN and creatinine in the morning, if there is a significant rise in creatinine may consider discontinuing interest oh however the elevated creatinine at this time eachsecondary to diuresis. Overall the patient states that she's feeling significantly better. 02/03/2018 Patient was seen and examined this morning, currently on by mouth Lasix. BUN is 51, creatinine 2.6, INR 1.5 today. Magnesium 1.4. Because of the rising creatinine, we will discontinue her interest oh and give her IV fluids at 50 mL per hour. Check lytes BUN and creatinine in the morning. Objective - Vital Signs Vital signs: Vital Signs Temp 97.6 F 02/03/18 08:00 Pulse 71 02/03/18 12:00 Resp 18 02/03/18 12:00 BP 129/60 02/03/18 12:00 Pulse Ox 94 L 02/03/18 12:21 Intake & Output 02/02/18 02/03/18 02/03/18 18:59 06:59 18:59 Intake Total 100 480 Output Total 300 Balance 100 180 Weight 127.3 kg Intake: Intake, IV Titration 100 Amount Sodium Ferric Gluconat- 100 Sucrose 125 mg In Sodium Chloride 0.9% 100 ml @ 100 mls/hr IVPB ONCE ONE Rx#:[id number] Oral 480 Output: Urine 300 Other: Voiding Method Bedside Commode # Voids 2 1 # Bowel Movements 0 - Exam PHYSICAL EXAMINATION: HEENT: Head is atraumatic, normocephalic. Pupils equal, round. Neck is supple. There is no elevated jugular venous pressure. HEART EXAMINATION: Heart S1 S2 1 systolic ejection murmur is heard. CHEST EXAMINATION: Lungs are clear to auscultation and precussion. No chest wall tenderness is noted on palpation or with deep breathing. ABDOMEN: Soft, nontender. Bowel sounds are heard. No organomegaly noted. EXTREMITIES: 2+ peripheral pulses with no evidence of peripheral edema and no calf tenderness noted. NEUROLOGIC patient is awake, alert and oriented -3. . - Labs CBC & Chem 7: 02/03/18 06:09 02/03/18 06:09 Labs: Abnormal Lab Results - Last 24 Hours (Table) 02/03/18 02/03/18 02/03/18 Range/Units 06:09 06:09 06:09 Hgb 10.7 L (11.4-16.0) gm/dL MCHC 30.7 L (31.0-37.0) g/dL RDW 15.6 H (11.5-15.5) % PT 14.3 H (9.0-12.0) sec INR 1.5 H (<1.2) BUN 51 H (7-17) mg/dL Creatinine 2.56 H (0.52-1.04) mg/dL Magnesium 1.4 L (1.6-2.3) mg/dL Microbiology - Last 24 Hours (Table) 01/30/18 12:58 Blood Culture - Preliminary Blood No Growth after 96 hours 01/30/18 10:45 Blood Culture - Preliminary Blood No Growth after 96 hours Assessment and Plan Plan: Assessment and plan #1 systolic congestive heart failure acute on chronic #2 history of pulmonary embolism and DVT #3 acute on chronic kidney disease #4 morbid obesity #5 anemia Plan Patient is currently on by mouth Lasix. We'll discontinue the N chest on giving her IV fluids at 50 mL per hour. Check lytes BUN and creatinine in the morning. DNP note has been reviewed, I agree with a documented findings and plan of care. Patient was seen and examined.
[2018-02-03] MEDS ORDERED: WARFARIN 5 MG TAB PO ONE (18:00)
[2018-02-04 07:01] LABS: Basophils % (A) 0 %; Eosinophils # (A) 0.2 k/uL (0-0.7); Eosinophils % (A) 2 %; HCT 35.4 % (34.0-46.0); HGB 10.7 gm/dL (11.4-16.0); Hypochromasia Marked; Lymphocytes # (A) 1.4 k/uL (1.0-4.8); Lymphocytes % (A) 19 %; MCH 27.4 pg (25.0-35.0); MCHC 30.3 g/dL (31.0-37.0); MCV 90.5 fL (80.0-100.0); Monocytes # (A) 0.5 k/uL (0-1.0); Monocytes % (A) 7 %; Neutrophils % (A) 69 %; Platelet Count 257 k/uL (150-450); RBC 3.91 m/uL (3.80-5.40); RDW 15.7 % (11.5-15.5); WBC 7.2 k/uL (3.8-10.6)
[2018-02-04 07:14] LABS: INR 2.2 (<1.2); Prothrombin Time 19.8 sec (9.0-12.0)
[2018-02-04 07:16] LABS: Calcium 9.3 mg/dL (8.4-10.2); Magnesium 2.2 mg/dL (1.6-2.3); Potassium 4.2 mmol/L (3.5-5.1)
[2018-02-04] MEDS: ALLOPURINOL 100 MG TAB PO SCH (08:15)
[2018-02-04] MEDS: HEPARIN SODIUM,PORCINE 5,000 UNIT/ML 1 ML VIAL SQ SCH ×3 (08:15→16:31)
[2018-02-04] MEDS: FAMOTIDINE 20 MG TAB PO SCH (08:15)
[2018-02-04] MEDS: SERTRALINE 50 MG TAB PO SCH (08:15)
[2018-02-04] MEDS: METOPROLOL TARTRATE 25 MG TAB PO SCH (08:15)
[2018-02-04] MEDS: CHOLECALCIFEROL 1,000 UNIT TAB PO SCH (08:16)
--- NOTE | 2018-02-04 08:16 | P.PN ---
Progress Note - Text The patient is a 68 year old who presented with shortness of breath and weakness. Acute on chronic systolic congestive heart failure and acute on chronic renal failure. This morning she is sitting up in bed. Alert and oriented. Denies any chest pain or shortness of breath at rest. Last vital signs reveal temperature of 97 and a pulse of 73. Respirations 16 and blood pressure 119/69. 97% saturation. Lung and heart exam are generally clear although diminished at bases. No unusual edema. No focal neurological changes. Patient is overall morbidly obese. Laboratory White count 7.2 with a hemoglobin 10.7 and a platelet count of 257 INR this morning is 2.2 Electrolytes were unremarkable with a potassium 4.2. BUN though is elevated at 59 with creatinine of 2.66 giving her a GFR of 18. Magnesium is 2.2. Impressions and plans Stabilization of the chronic problems is listed above. Patient did participate in physical therapy yesterday. She appeared to tolerate well. Needed to continue to progress strength and activity tolerance according to physical therapist. INR is 2.2 and she will remain on 2.5 of Coumadin daily pending INRs at home. We'll await further recommendations from cardiology and nephrology regarding discharge planning for possible later today. This was discussed with patient at bedside this morning.
[2018-02-04] MEDS: traMADol 50 MG TAB PO SCH (08:27)
[2018-02-04] MEDS: SODIUM CHLORIDE 0.9% 1,000 ML IV SCH (08:28)
[2018-02-04] MEDS: FUROSEMIDE 40 MG TAB PO SCH (08:28)
[2018-02-04 08:42] VITALS: RESP 18; TEMP 97.7
[2018-02-04 10:38] LABS: Albumin 3.87 g/dL (3.80-4.90); Gamma Globulin 0.69 g/dL (0.70-1.50)
--- NOTE | 2018-02-04 11:53 | P.PN ---
Subjective Progress Note Date: 02/04/18 This is a 68-year-old female with known history of hypertension, prior history of DVT and pulmonary embolism, obesity, who presented to the hospital with symptoms of dyspnea and progressive fatigue. Coronary risk factors significant for hypertension, she is a nondiabetic, nonsmoker, no hyperlipidemia. Patient diuresed well on IV Lasix. Chest x-ray done today show some improvement. She is currently on by mouth Lasix. Her creatinine today is 2.3 and her weight is down 3 kg. We will check the patient's lytes BUN and creatinine in the morning, if there is a significant rise in creatinine may consider discontinuing interest oh however the elevated creatinine at this time eachsecondary to diuresis. Overall the patient states that she's feeling significantly better. 02/03/2018 Patient was seen and examined this morning, currently on by mouth Lasix. BUN is 51, creatinine 2.6, INR 1.5 today. Magnesium 1.4. Because of the rising creatinine, we will discontinue her interest oh and give her IV fluids at 50 mL per hour. Check lytes BUN and creatinine in the morning. 02/04/2018 Patient was seen and examined this morning, feels well, no complaints overall. Blood pressure 106/58, heart rate 80, 96% on room air. White blood cell count 7.2, hemoglobin 10.7, platelet count 257. INR 2.2. Potassium 4.2, BUN 59, creatinine 2.6. Patient is cleared by primary and nephrology for discharge. We will hold the Lasix, continue to hold the Entresto. Obtain lytes BUN and creatinine in one week. Follow-up with Dr. VC Payne in the office in 2 weeks. Objective - Vital Signs Vital signs: Vital Signs Temp 97.7 F 02/04/18 08:00 Pulse 80 02/04/18 08:00 Resp 18 02/04/18 08:00 BP 105/58 02/04/18 08:00 Pulse Ox 96 02/04/18 08:00 Intake & Output 02/03/18 02/04/18 02/04/18 18:59 06:59 18:59 Intake Total 720 400 125 Output Total 700 Balance 20 400 125 Weight 126.8 kg Intake: Intake, IV Titration 400 Amount Sodium Chloride 0.9% 1, 400 000 ml @ 50 mls/hr IV . Q20H [facility]RI[facility] Rx#:[id number] Oral 720 125 Output: Urine 700 Other: Voiding Method Bedside Commode # Voids 1 1 # Bowel Movements 1 - Exam PHYSICAL EXAMINATION: HEENT: Head is atraumatic, normocephalic. Pupils equal, round. Neck is supple. There is no elevated jugular venous pressure. HEART EXAMINATION: Heart S1 S2 1 systolic ejection murmur is heard. CHEST EXAMINATION: Lungs are clear to auscultation and precussion. No chest wall tenderness is noted on palpation or with deep breathing. ABDOMEN: Soft, nontender. Bowel sounds are heard. No organomegaly noted. EXTREMITIES: 2+ peripheral pulses with no evidence of peripheral edema and no calf tenderness noted. NEUROLOGIC patient is awake, alert and oriented -3. . - Labs CBC & Chem 7: 02/04/18 06:00 02/04/18 06:00 Labs: Abnormal Lab Results - Last 24 Hours (Table) 02/04/18 02/04/18 02/04/18 Range/Units 06:00 06:00 06:00 Hgb 10.7 L (11.4-16.0) gm/dL MCHC 30.3 L (31.0-37.0) g/dL RDW 15.7 H (11.5-15.5) % PT 19.8 H (9.0-12.0) sec INR 2.2 H (<1.2) BUN 59 H (7-17) mg/dL Creatinine 2.66 H (0.52-1.04) mg/dL Microbiology - Last 24 Hours (Table) 01/30/18 12:58 Blood Culture - Preliminary Blood No Growth after 96 hours 01/30/18 10:45 Blood Culture - Preliminary Blood No Growth after 96 hours Assessment and Plan Plan: Assessment and plan #1 systolic congestive heart failure acute on chronic #2 history of pulmonary embolism and DVT #3 acute on chronic kidney disease #4 morbid obesity #5 anemia Plan We will continue to hold the Lasix and Entresto. Patient may be able to be discharged from our perspective, we'll make her a follow-up appointment in the office with Dr. Payne in 2 weeks. Lytes BUN and creatinine in one week. DNP note has been reviewed, I agree with a documented findings and plan of care. Patient was seen and examined.
[2018-02-04 12:21] VITALS: BP 120/59; PULSE 69
--- NOTE | 2018-02-04 16:12 | PN ---
PROGRESS NOTE Patient is seen for followup for acute kidney injury. Currently patient is lying flat in bed. She is comfortable. She is not in any acute distress. She wants to go home. Patient was started on IV fluids yesterday, as her creatinine was increased. She is maintained on Lasix 40 mg p.o. daily. I will discontinue the IV fluids and patient can be discharged from nephrology standpoint with plans to follow up as outpatient in one week's time. She can go home on Lasix 40 mg p.o. daily. On examination today, patient is comfortable. Blood pressure is 119/69, heart rate 73 per minute. She is afebrile. EXAMINATION OF THE HEART: S1, S2. EXAMINATION OF LUNGS: Decreased breath sounds at bases. ABDOMEN: Soft, obese. Examination of lower extremities shows some erythema in the lower legs, mainly on the right side, and edema is 1+ bilaterally. [employer] exam is grossly intact. Labs show sodium 143, potassium 4.2, chloride 101, BUN 59, serum creatinine 2.66, hemoglobin 10.7 g/dL. ASSESSMENT: 1. Acute kidney injury, cardiorenal, and associated with recent diuresis. Serum creatinine is again a little bit higher today. Patient was started on IV fluids. She can be discharged. The IV fluids will be discontinued and she can go home on Lasix 40 mg p.o. daily. We will see her as an outpatient for followup in about one week's time. 2. Chronic kidney disease, stage III, with baseline creatinine about 1.5 mg/dL. 3. Congestive heart failure, ejection fraction 35% to 30%. 4. Anemia with iron deficiency, status post IV iron. PLAN: Hep-Lock IV fluids. Patient can be discharged from nephrology standpoint. She can go home on Lasix 40 mg p.o. daily and follow up as outpatient in one week's time. MMODL / IJN: [id number] /
[2018-02-04] MEDS ORDERED: WARFARIN 2.5 MG TAB PO SCH (18:00)
--- NOTE | 2018-02-05 08:45 | P.DS ---
Providers Date of admission: 01/29/18 14:06 Attending physician: Hemanth Medina Consults: 01/29/18 14:06 Consult Physician Urgent Consulting Provider: Genevieve Saldana Consult Reason/Comments: dyspnea, nstemi Do you want consulting provider notified?: Yes 01/30/18 08:00 Consult Physician Urgent Consulting Provider: Pedro Dorman Consult Reason/Comments: CKD Do you want consulting provider notified?: Yes 02/01/18 09:38 Consult Physician Urgent Consulting Provider: Ifeanyi Dewitt Consult Reason/Comments: hip pain. inability to walk Do you want consulting provider notified?: Yes Primary care physician: Hemanth Medina The patient is a morbidly obese 68-year-old female who presented to the emergency room with shortness of breath and weakness. Patient was found to be in acute congestive heart failure with acute on chronic systolic congestive heart failure. Laboratory values on admission revealed a BNP elevated at 12,300. Subsequent chest x-ray revealed evidence of CHF. Troponin values were mildly elevated up to 0.043. A d-dimer was elevated initially at 0.98. Patient also had acute on chronic stage IV renal failure. BUN of 30 with creatinine 1.76 given her GFR of 29. EKG showed a sinus rhythm. No definite ischemic changes were seen. Patient was admitted and seen by cardiology and nephrology. Patient was placed on the cardiac floor. Other imaging studies 1. Venous Doppler studies were negative for DVT in both right and left leg. 2. Echo Doppler revealed ejection fraction of 30-35%. Mildly dilated left atrium. Greater than 40 mL. No evidence of pulmonary hypertension. No pericardial effusion was noted. There was inferior hypokinesis noted. Hospital course Patient was treated with IV Lasix. Her Coumadin was readjusted as she does have history of previous DVT and pulmonary embolus. She was seen by physical therapy. Patient also complaining of back and hip discomfort and was seen by orthopedics. X-rays did reveal degenerative changes and multiple compression fractures in the lumbar sacral spine. Consultation was obtained with [facility] Dr. Ahuja and please refer to his notes. Her intact PTH was elevated at 186. Vitamin D level was 24 which was slightly low. Protein electrophoresis did not show any mono clonal paraprotein. Patient's blood cultures did initially show coagulase-negative staph but all repeat cultures were negative and it was felt to be a contaminant. Urine cultures also showed apparent skin/genital eze. Home medications Pepcid 20 mg daily Metoprolol 25 mg twice a day Allopurinol 100 mg daily Vitamin D 3000 units daily Zoloft 50 mg daily Coumadin 2.5 mg daily Tramadol 100 mg twice a day for pain Patient is to stop taking Mobic 15 mg daily. She is to remain off any anti- inflammatory medications including Motrin and Advil. Discharge diagnoses 1. Acute on chronic systolic congestive heart failure with pulmonary edema and shortness of breath associated with a markedly elevated BNP of 12,300. And an echocardiogram showing an ejection fraction of 30-35%. 2. Acute on chronic kidney disease stage IV. 3. Morbid obesity. 4. Osteoporosis with lumbar compression fractures. Hip degenerative joint disease. 5. Previous history of lower extremity DVT and pulmonary embolus. On Coumadin. 6. Post total hysterectomy for uterine cancer 4 years ago. 7. History of gout. 8. History of hives with aspirin and pruritus with codeine in the past. Diet and activities as tolerated. Avoidance of excess salt intake. Follow-up with myself along with cardiology and nephrology in approximately one week. She will call office for any concerns or problems. Outpatient home nursing and physical therapy to be set up. Patient to have follow-up basic metabolic panel and INRs performed. Prognosis is guarded. Patient Condition at Discharge: Stable Plan - Discharge Summary Discharge Rx Participant: Yes New Discharge Prescriptions: New Famotidine [Pepcid] 20 mg PO DAILY #30 tablet Metoprolol Tartrate 25 mg PO BID #60 tab No Action traMADol HCL [Tramadol HCl] 100 mg PO BID Allopurinol 100 mg PO DAILY Warfarin [Coumadin] 2.5 mg PO AC-SUPPER Sertraline [Zoloft] 50 mg PO DAILY Cholecalciferol [Vitamin D3] 1,000 unit PO DAILY Discharge Medication List Allopurinol 100 mg PO DAILY 07/21/14 [History] Warfarin [Coumadin] 2.5 mg PO AC-SUPPER 07/21/14 [History] traMADol HCL [Tramadol HCl] 100 mg PO BID 07/21/14 [History] Cholecalciferol [Vitamin D3] 1,000 unit PO DAILY 01/29/18 [History] Sertraline [Zoloft] 50 mg PO DAILY 01/29/18 [History] Famotidine [Pepcid] 20 mg PO DAILY #30 tablet 02/04/18 [Rx] Metoprolol Tartrate 25 mg PO BID #60 tab 02/04/18 [Rx] Follow up Appointment(s)/Referral(s): [facility], [NON-STAFF] - Genevieve Saldana MD [STAFF PHYSICIAN] - 02/16/18 2:30 pm Hemanth Medina MD [Primary Care Provider] - 02/10/18 2:15 pm (Friday) Pedro Dorman DO [STAFF PHYSICIAN] - 02/12/18 2:00 pm Patient Instructions/Handouts: Heart Failure (DC), Acute Kidney Injury (DC) Discharge Disposition: HOME WITH HOME HEALTH SERVICES
== END 2018-02-04 17:05 | disposition home health service (06) | DRG 291 ==
LOC: EC 11:24 → 6SEL 14:06
PROVIDERS: ADMIT Internal Medicine; ATTEND Internal Medicine
DX: I13.0 Hypertensive heart and chronic kidney disease with heart failure and stage 1 through stage 4 chronic kidney disease, or unspecified chronic kidney disease (principal); I50.23 Acute on chronic systolic (congestive) heart failure; N17.0 Acute kidney failure with tubular necrosis; N18.4 Chronic kidney disease, stage 4 (severe); E72.12 Methylenetetrahydrofolate reductase deficiency; Z68.43 Body mass index [BMI] 50.0-59.9, adult; N11.9 Chronic tubulo-interstitial nephritis, unspecified; M80.08XA Age-related osteoporosis with current pathological fracture, vertebra(e), initial encounter for fracture; E87.2 Acidosis; E66.01 Morbid (severe) obesity due to excess calories; N14.1 Nephropathy induced by other drugs, medicaments and biological substances; Z79.01 Long term (current) use of anticoagulants; M17.0 Bilateral primary osteoarthritis of knee; M51.36 Other intervertebral disc degeneration, lumbar region; M16.10 Unilateral primary osteoarthritis, unspecified hip; M41.56 Other secondary scoliosis, lumbar region; E83.42 Hypomagnesemia; D50.9 Iron deficiency anemia, unspecified; T39.395A Adverse effect of other nonsteroidal anti-inflammatory drugs [NSAID], initial encounter; M10.9 Gout, unspecified; Z79.1 Long term (current) use of non-steroidal anti-inflammatories (NSAID); Z79.899 Other long term (current) drug therapy; Z86.718 Personal history of other venous thrombosis and embolism; Z86.711 Personal history of pulmonary embolism; Z85.42 Personal history of malignant neoplasm of other parts of uterus; Z90.710 Acquired absence of both cervix and uterus; Z87.81 Personal history of (healed) traumatic fracture; Z88.6 Allergy status to analgesic agent; Z88.5 Allergy status to narcotic agent; Z80.3 Family history of malignant neoplasm of breast; Z82.49 Family history of ischemic heart disease and other diseases of the circulatory system; Z83.3 Family history of diabetes mellitus; Z86.72 Personal history of thrombophlebitis
CPT/HCPCS: 36415; 71046; 72110; 73521; 78582; 80048; 80053; 80061; 81001; 82272; 82550; 82553; 82607; 82652; 82728; 83540; 83550; 83735; 83880; 83970; 84165; 84443; 84484; 85025; 85379; 85610; 85730; 86140; 87040; 87086; 93005; 93306; 93970; 94760; 96365; 96366; 96375; 96376; 99285

== ENCOUNTER → 2018-06-04 | Outpatient (CLI) | payer MEDICARE ==
[2018-06-04 15:22] LABS: HCT 34.2 % (34.0-46.0); HGB 10.7 gm/dL (11.4-16.0); Hypochromasia Moderate; MCH 27.9 pg (25.0-35.0); MCHC 31.1 g/dL (31.0-37.0); MCV 89.7 fL (80.0-100.0); Mean Platelet Volume 6.9; Platelet Count 278 k/uL (150-450); RBC 3.82 m/uL (3.80-5.40); RDW 15.8 % (11.5-15.5); WBC 8.1 k/uL (3.8-10.6)
[2018-06-04 15:34] LABS: Albumin 3.6 g/dL (3.5-5.0); Calcium 9.3 mg/dL (8.4-10.2); Magnesium 1.5 mg/dL (1.6-2.3); Phosphorus 3.1 mg/dL (2.5-4.5); Potassium 4.1 mmol/L (3.5-5.1); Total Bilirubin 0.4 mg/dL (0.2-1.3); Total Protein 6.6 g/dL (6.3-8.2); Uric Acid 5.7 mg/dL (3.7-7.4)
[2018-06-04 19:55] LABS: Iron Saturation 15.7 (12.00-45.00)
[2018-06-04 20:46] LABS: Parathyroid Hormone Intact 157.5 pg/mL (14.0-72.0)
== END ==
LOC: LABWHC1 14:35
PROVIDERS: ATTEND Internal Medicine Nephrology
DX: I10 Essential (primary) hypertension (principal); N17.9 Acute kidney failure, unspecified; D64.9 Anemia, unspecified; N39.0 Urinary tract infection, site not specified; E21.3 Hyperparathyroidism, unspecified; E55.9 Vitamin D deficiency, unspecified; M10.9 Gout, unspecified; R80.9 Proteinuria, unspecified
CPT/HCPCS: 36415; 80053; 82306; 82728; 83540; 83550; 83735; 83970; 84100; 84550; 85027

== ENCOUNTER → 2018-07-13 | Outpatient (CLI) | payer MEDICARE ==
[2018-07-10 15:37] VITALS: BMI 50.8
[2018-07-13 14:14] VITALS: BP 132/73; PULSE 78; RESP 16
--- NOTE | 2018-07-13 14:39 | P.CONS ---
History of Present Illness - Reason for Consult Consult date: 07/13/18 - Chief Complaint Lower back pain - History of Present Illness This is a pleasant morbidly obese 68-year-old lady with history of chronic lower back pain with radiation to the upper right buttock area. The patient denies any bowel or bladder dysfunction however she feels that her legs are getting weaker over time. She denies any nocturnal pain. She was admitted recently to the hospital because of an acute on chronic congestive heart failure. Her pain gets worse by standing or walking for less than 5 minutes. She also has a history of chronic kidney disease and she received an MRI on the lumbar spine without contrast because of this kidney problem. The lumbar spine MRI showed advanced disc space narrowing with mass effect fusion at T12-L1 level and moderate to severe spurring at L1-L2, disc space narrowing at L3 4 and L4 5 levels, scoliosis and multiple levels of moderate to severe disc bulging. The patient has been using tramadol and Tylenol to treat her pain. Review of Systems Eyes: denies blurred vision, denies pain Ears, nose, mouth and throat: Denies headache, Denies sore throat Cardiovascular: Reports as per HPI Respiratory: Reports as per HPI Gastrointestinal: Denies abdominal pain, Denies diarrhea, Denies nausea, Denies vomiting Musculoskeletal: Reports as per HPI Neurological: Reports as per HPI Past Medical History Past Medical History: Blood Disorder, Cancer, Deep Vein Thrombosis (DVT), Hypertension, Musculoskeletal Disorder, Osteoarthritis (OA), Pulmonary Embolus ( PE) Additional Past Medical History / Comment(s): MTHFR mutation; uterine cancer; gout, anemia. History of Any Multi-Drug Resistant Organisms: None Reported Past Surgical History: Hysterectomy, Orthopedic Surgery Additional Past Surgical History / Comment(s): plate and screws in right ankle, picc line-since removed, cortisone injections to knees Past Anesthesia/Blood Transfusion Reactions: No Reported Reaction Additional Past Anesthesia/Blood Transfusion Reaction / Comm: past blood transfusions-no reactions Smoking Status: Never smoker - Past Family History Mother Family Medical History: Cancer Additional Family Medical History / Comment(s): BREAST Father Family Medical History: Coronary Artery Disease (CAD) Medications and Allergies Home Medications Medication Instructions Recorded Confirmed Type Allopurinol 100 mg PO DAILY 07/21/14 07/13/18 History Warfarin [Coumadin] 2.5 mg PO AC-SUPPER 07/21/14 07/13/18 History traMADol HCL [Tramadol HCl] 100 mg PO BID 07/21/14 07/13/18 History Cholecalciferol [Vitamin D3] 1,000 unit PO DAILY 01/29/18 07/13/18 History Sertraline [Zoloft] 50 mg PO DAILY 01/29/18 07/13/18 History Famotidine [Pepcid] 20 mg PO DAILY #30 tablet 02/04/18 07/13/18 Rx Metoprolol Tartrate 25 mg PO BID #60 tab 02/04/18 07/13/18 Rx Gabapentin [Neurontin] 100 mg PO TID 07/10/18 07/13/18 History Acetaminophen Tab [Tylenol] 1,000 mg PO DAILY 07/13/18 07/13/18 History Allergies Allergy/AdvReac Type Severity Reaction Status Date / Time aspirin Allergy Rash/Hives Verified 07/13/18 13:46 codeine Allergy Itching Verified 07/13/18 13:46 Physical Exam Vitals: Vital Signs Pulse Resp BP Pulse Ox 07/13/18 14:04 78 16 132/73 92 L - Constitutional General appearance: morbidly obese - EENT Eyes: PERRLA - Neck Neck: no lymphadenopathy - Respiratory Respiratory: bilateral: CTA - Cardiovascular Rhythm: regular Heart sounds: normal: S1, S2 - Integumentary Integumentary: normal - Neurologic The patient is morbidly obese and was examined in her wheelchair , the examination was limited because of that. She has decreased but symmetrical muscle strength in the lower extremities to 4 out of 5. She has absent deep tendon reflexes in the lower extremities. Straight leg raising test negative bilaterally She has significant tenderness around the right sacroiliac joint. Neurologic: CNII-XII intact - Psychiatric Psychiatric: A&O x's 3, appropriate affect, intact judgment & insight Assessment and Plan Plan: This is a pleasant 5-year-old lady with the following diagnoses: Right sacroiliitis Lumbar spondylosis without myelopathy Lumbar DDD Morbid obesity History of congestive heart failure History of DVT and PE Treatment with Coumadin I think the patient may benefit from getting right sacroiliac joint steroid injection under fluoroscopic guidance. The patient will check with her family physician on the safety of holding her Coumadin for 4 days before the procedure and we will do an INR on the morning of the procedure. The patient has held Coumadin previously with no sequelae. The procedure mentioned above was explained to the patient and her questions were answered. Because of the patient's multiple sites of degenerative changes in the lumbar spine she might benefit from different types of procedures, however we'll start with the sacroiliac joint steroid injection and depending on the results we will reevaluate and choose the best path. I thank you for the referral
== END ==
LOC: PNWHC3 13:41
PROVIDERS: ATTEND Anesthesiology
DX: M51.36 Other intervertebral disc degeneration, lumbar region (principal); M47.816 Spondylosis without myelopathy or radiculopathy, lumbar region; M46.1 Sacroiliitis, not elsewhere classified; I25.10 Atherosclerotic heart disease of native coronary artery without angina pectoris; I50.9 Heart failure, unspecified; E66.01 Morbid (severe) obesity due to excess calories; Z86.718 Personal history of other venous thrombosis and embolism; Z88.5 Allergy status to narcotic agent; Z79.899 Other long term (current) drug therapy; Z79.01 Long term (current) use of anticoagulants
CPT/HCPCS: 99211

== ENCOUNTER 2018-07-29 08:11 | Day surgery (SDC) | payer MEDICARE, OTHER ==
[2018-07-23 15:31] VITALS: BMI 50.8
[2018-07-29] MEDS ORDERED: SODIUM CHLORIDE 0.9% 500 ML 500 ML IV SCH (08:33)
[2018-07-29 08:40] VITALS: PULSE 70; RESP 20; TEMP 98.3
[2018-07-29 10:00] VITALS: BP 130/71
--- NOTE | 2018-07-29 10:10 | FL ---
EXAMINATION TYPE: FL guided pain mgmt statistic DATE OF EXAM: 07/29/2018 HISTORY: Flouroscopy time 9 seconds of fluoroscopy provided. IMPRESSION: 1. Fluoroscopy time.
== END 2018-07-29 10:20 | disposition home or self-care (01) ==
LOC: ORPAIN 08:11
PROVIDERS: ATTEND Specialist
DX: M46.1 Sacroiliitis, not elsewhere classified (principal); M47.816 Spondylosis without myelopathy or radiculopathy, lumbar region; M51.36 Other intervertebral disc degeneration, lumbar region; E66.01 Morbid (severe) obesity due to excess calories; Z68.43 Body mass index [BMI] 50.0-59.9, adult; I13.0 Hypertensive heart and chronic kidney disease with heart failure and stage 1 through stage 4 chronic kidney disease, or unspecified chronic kidney disease; N18.9 Chronic kidney disease, unspecified; I50.9 Heart failure, unspecified; Z86.718 Personal history of other venous thrombosis and embolism; Z86.711 Personal history of pulmonary embolism; M25.78 Osteophyte, vertebrae; M41.9 Scoliosis, unspecified; E72.12 Methylenetetrahydrofolate reductase deficiency; M19.90 Unspecified osteoarthritis, unspecified site; M10.9 Gout, unspecified; Z79.01 Long term (current) use of anticoagulants; Z79.891 Long term (current) use of opiate analgesic; Z79.899 Other long term (current) drug therapy; Z88.6 Allergy status to analgesic agent; Z88.5 Allergy status to narcotic agent; Z85.42 Personal history of malignant neoplasm of other parts of uterus
CPT/HCPCS: J3301; G0260; 27096; 85610; 99152

== ENCOUNTER → 2018-07-29 | Outpatient (CLI) | payer MEDICARE, OTHER ==
[2018-07-29 08:30] LABS: INR 1.5 (<1.2); Prothrombin Time 14.3 sec (9.0-12.0)
--- NOTE | 2018-07-29 09:37 | P.PCN ---
Date of Procedure: 07/29/18 Procedure(s) Performed: Procedure= right sacral iliac joints steroid injection under fluoroscopy guidance Preoperative diagnosis= 1-right sacroiliitis Postoperative diagnosis=1-right sacroiliitis Complication = none Condition= stable Anesthesia= moderate sedation with intravenous Versed 1 mg , and fentanyl 50 micrograms and local infiltration with lidocaine 1% 5 mL Indication for the procedure= patient complaining of low back pain , examination was positive for severe tenderness over the sacroiliac joints bilaterally and patient diagnosed with sacroiliitis, for this reason he/ she was good candidate for sacroiliac joint steroid injection. Description of the procedure= procedure risk and benefits discussed with the patient, including but not limited, risk of infection and bleeding, and ALLERGIC reaction to the medication and not complete pain relief and patient agreed with the preceding patient taken to the operating room, placed in prone position or standard monitors applied to the patient then after induction of anesthesia back prepped with chlorhexidine 3 times , Then under strict sterile technique, first I did the right sacroiliac joint the which was identified under fluoroscopy guidance been local infiltration of the skin and subcu interstitial with lidocaine 1% then 22-gauge 5 inches Quincke Needle advanced slowly under fluoroscopy and placed in the right sacroiliac joint needle placement confirmed with AP and oblique and lateral view and after appropriate needle placement confirmed and after negative aspiration, or heme , then Ropivacaine 0.5% 4 mL, and 60 mg of Kenalog mixed together and injected in the right sacroiliac joint after negative aspiration patient tolerated the procedure well without any complication.
== END | disposition home or self-care (01) ==
LOC: LABPAT 07:49
PROVIDERS: ATTEND Anesthesiology
DX: Z01.812 Encounter for preprocedural laboratory examination (principal); Z79.01 Long term (current) use of anticoagulants
CPT/HCPCS: 85610

== ENCOUNTER 2018-09-08 09:04 | Day surgery (SDC) | payer MEDICARE ==
[2018-09-03 14:34] VITALS: BMI 49.9
[~2018-09-08 09:04] MED LIST: SODIUM CHLORIDE 0.9% 500 ML 500 ML IV SCH
[2018-09-08 10:15] VITALS: TEMP 98.2
[2018-09-08] MEDS ORDERED: LIDOCAINE 1% 20 ML VIAL (10MG/ML) FOR IV START INTRADERMA ONE (11:02)
--- NOTE | 2018-09-08 11:23 | P.PCN ---
Date of Procedure: 09/08/18 Procedure(s) Performed: Procedure(s) Performed: Procedure= right sacral iliac joints steroid injection under fluoroscopy guidance Preoperative diagnosis= 1-right sacroiliitis Postoperative diagnosis=1-right sacroiliitis Complication = none Condition= stable Anesthesia= moderate sedation with intravenous Versed 1 mg , and fentanyl 50 micrograms and local infiltration with lidocaine 1% 3 mL Indication for the procedure= patient complaining of low back pain , examination was positive for severe tenderness over the sacroiliac joints bilaterally and patient diagnosed with sacroiliitis, for this reason he/ she was good candidate for sacroiliac joint steroid injection. Description of the procedure= procedure risk and benefits discussed with the patient, including but not limited, risk of infection and bleeding, and ALLERGIC reaction to the medication and not complete pain relief and patient agreed with the preceding patient taken to the operating room, placed in prone position or standard monitors applied to the patient then after induction of anesthesia back prepped with chlorhexidine 3 times , Then under strict sterile technique, first I did the right sacroiliac joint the which was identified under fluoroscopy guidance been local infiltration of the skin and subcu interstitial with lidocaine 1% then 22-gauge 5 inches Quincke Needle advanced slowly under fluoroscopy and placed in the right sacroiliac joint needle placement confirmed with AP and oblique and lateral view and after appropriate needle placement confirmed and after negative aspiration, or heme , then Ropivacaine 0.5% 4 mL, and 40 mg of Kenalog mixed together and injected in the right sacroiliac joint after negative aspiration patient tolerated the procedure well without any complication.
[2018-09-08] MEDS ORDERED: IV FLUID CONTINUATION 975 ML IV ONE (11:40)
--- NOTE | 2018-09-08 11:54 | FL ---
EXAMINATION TYPE: FL guided pain mgmt statistic DATE OF EXAM: 09/08/2018 HISTORY: Flouroscopy time 8 seconds of fluoroscopy provided. IMPRESSION: 1. Fluoroscopy time.
[2018-09-08 12:02] VITALS: BP 124/72; PULSE 66; RESP 18
== END 2018-09-08 12:30 | disposition home or self-care (01) ==
LOC: ORPAIN 09:04
PROVIDERS: ATTEND Specialist
DX: M46.1 Sacroiliitis, not elsewhere classified (principal); Z88.6 Allergy status to analgesic agent; Z88.5 Allergy status to narcotic agent; Z79.01 Long term (current) use of anticoagulants
CPT/HCPCS: J2250; J1030; J3010; G0260; 20610; 27096; 36415; 85610

== ENCOUNTER → 2018-09-08 | Outpatient (CLI) | payer MEDICARE ==
[2018-09-08 09:15] LABS: INR 1.2 (<1.2); Prothrombin Time 11.5 sec (9.0-12.0)
== END | disposition home or self-care (01) ==
LOC: LABWHC1 08:44
PROVIDERS: ATTEND Specialist
DX: Z51.81 Encounter for therapeutic drug level monitoring (principal); Z79.01 Long term (current) use of anticoagulants
CPT/HCPCS: 36415; 85610

== ENCOUNTER → 2018-10-21 | Outpatient (CLI) | payer MEDICARE ==
[2018-10-21 14:23] VITALS: BP 144/66; PULSE 70; RESP 16
--- NOTE | 2018-10-21 15:26 | P.PN ---
Progress Note - Text Progress Note Date: 10/21/18 This is a pleasant morbidly obese 68-year-old lady with history of chronic lower back pain with radiation to the upper right buttock area. She was evaluated as an inpatient in July 2018 severe low back pain and right buttock pain and right hip pain. She had 2 right SI joint injections that provided her with marginal relief. She has a very complex medical history and requires lifelong anticoagulation with Coumadin and Plavix. The lumbar spine MRI showed advanced disc space narrowing with mass effect fusion at T12-L1 level and moderate to severe spurring at L1-L2, disc space narrowing at L3 4 and L4 5 levels, scoliosis and multiple levels of moderate to severe disc bulging. She was evaluated by Dr. Ahuja we do not recommend any surgical treatment. secondary to her lifelong anticoagulation, interventional pain procedures likely would not be practical visit pursue patient significant risk for recurrent PE and DVT. In addition to above, 13-point review of systems is also negative for chest pain , shortness of breath, changes in vision, changes in hearing, new onset weakness , abdominal pain, diarrhea, extreme fatigue, malaise, fever, skin changes, homicidal or suicidal ideation, or bowel or bladder incontinence. Vital Signs: Reviewed in EMR Gen: WDWN, AAOx3, NAD morbidly obese HEENT: NCAT, EOMI, hearing grossly normal Pulm: resp unlabored Abd: soft, NT, ND Neck: supple, trachea midline ROM in flexion lumbar spine: Painful flexion ROM in extension lumbar spine: Lumbar paravertebral tenderness: Tenderness to palpation diffusely along paraspinal musculatures Facet loading: Unable to assess this patient's in wheelchair SI joint tenderness: Positive on right Hira's test: Unable to assess secondary to body habitus Straight leg raise: Unable to assess secondary to body habitus and patient wheelchair Lower extremity: Neuro: Unable to assess motor function, dorsiflexion and plantarflexion are preserved bilaterally. Achilles reflexes 2+ bilaterally. Assessment: 1. Lumbar spondylosis without myelopathy 2. Severe degenerative disc disease of lumbar spine 3. Grade 2 spondylolisthesis L4-L5 Plan: 1. There is currently nothing that we can provide the patient on interventional standpoint, The risks far outweigh the benefits considering her multiple comorbidities. I wrote her prescription for physical therapy as well as home health assistance to improve her activities of daily living. I instructed the patient follow up on a when necessary basis. PQRS measures: 1-Patient's medications are documented in the chart. 2-Tobacco use is positive/negative, counseling given 3-Patient has not had a pneumococcal vaccine. 4-Advanced care planning discussed, patient unable to give. 5-Opioid contract signed with the patient. 6-Pain positive, follow-up visit or procedure scheduled 7-Patient's blood pressure measured and documented, and patient will follow up with the primary care due to hypertension. 8-Patient's weight was measured, and body mass inde above the normal limits, and counseling was done. Patient instructed to follow up with PCP. 9-Anila was not identified as an unhealthy alcohol user.
== END ==
LOC: PNWHC3 12:58
PROVIDERS: ATTEND Anesthesiology
DX: M43.16 Spondylolisthesis, lumbar region (principal); M51.36 Other intervertebral disc degeneration, lumbar region; M47.816 Spondylosis without myelopathy or radiculopathy, lumbar region
CPT/HCPCS: 99211

== ENCOUNTER → 2019-02-03 | Outpatient (CLI) | payer MEDICARE ==
[2019-02-03 14:48] LABS: HCT 35.4 % (34.0-46.0); HGB 10.8 gm/dL (11.4-16.0); Hypochromasia Marked; MCH 26.8 pg (25.0-35.0); MCHC 30.4 g/dL (31.0-37.0); MCV 88.2 fL (80.0-100.0); Mean Platelet Volume 7.2; Platelet Count 312 k/uL (150-450); RBC 4.02 m/uL (3.80-5.40); RDW 15.4 % (11.5-15.5); WBC 7.2 k/uL (3.8-10.6)
[2019-02-03 15:03] LABS: INR 2.2 (<1.2); Prothrombin Time 21.7 sec (9.0-12.0)
[2019-02-03 19:43] LABS: Albumin/Globulin Ratio 1.67 (1.60-3.17); Calcium 9.5 mg/dL (8.7-10.3); Globulin 2.4 g/dL (1.6-3.3); LDL Cholesterol,Calculated 102.4 mg/dL (0.0-131.0); Potassium 4.4 mmol/L (3.5-5.5); Total Bilirubin 0.4 mg/dL (0.2-1.2); Total Protein 6.4 g/dL (6.2-8.2); Uric Acid 5.7 mg/dL (2.9-7.7); VLDL Calculation 27.6 mg/dL (5.00-40.00)
== END | disposition home or self-care (01) ==
LOC: LABWHC1 13:02
PROVIDERS: ATTEND Internal Medicine
DX: E87.8 Other disorders of electrolyte and fluid balance, not elsewhere classified (principal); E78.41 Elevated Lipoprotein(a); R53.83 Other fatigue
CPT/HCPCS: 36415; 80053; 80061; 84443; 84550; 85027; 85610; 86803

== ENCOUNTER → 2019-11-03 | Outpatient (CLI) | payer MEDICARE ==
[2019-11-03 15:02] LABS: HCT 38.3 % (34.0-46.0); HGB 11.7 gm/dL (11.4-16.0); Hypochromasia Moderate; MCH 27.5 pg (25.0-35.0); MCHC 30.5 g/dL (31.0-37.0); MCV 90.2 fL (80.0-100.0); Mean Platelet Volume 7.8; Platelet Count 243 k/uL (150-450); RBC 4.24 m/uL (3.80-5.40); RDW 15.3 % (11.5-15.5); WBC 7.7 k/uL (3.8-10.6)
[2019-11-03 15:10] LABS: INR 3.4 (<1.2); Prothrombin Time 33.1 sec (9.0-12.0)
[2019-11-04 02:53] LABS: African American GFR (CKD) 40.2 (60.0-200.0); BUN/Creat Ratio 17.33 Ratio (12.00-20.00); Calcium 9.3 mg/dL (8.7-10.3); Non-African American GFR(CKD) 34.7 (60.0-200.0); Potassium 4.5 mmol/L (3.5-5.5)
== END | disposition home or self-care (01) ==
LOC: LABWHC1 14:13
PROVIDERS: ATTEND Nurse Practitioner Family
DX: I10 Essential (primary) hypertension (principal); I80.9 Phlebitis and thrombophlebitis of unspecified site; G89.4 Chronic pain syndrome; E66.9 Obesity, unspecified; R53.83 Other fatigue
CPT/HCPCS: 36415; 80048; 85027; 85610

== ENCOUNTER 2021-08-17 13:25 | Inpatient (IN) | payer MEDICARE, OTHER ==
[2021-08-17] MEDS ORDERED: SODIUM CHLORIDE 0.9% 500 ML 500 ML IV STA (14:10)
[2021-08-17] MEDS ORDERED: ONDANSETRON 4 MG/2 ML VIAL IVP STA (14:11)
--- NOTE | 2021-08-17 14:17 | ED ---
General Adult HPI - General Chief complaint: Shortness of Breath Stated complaint: Nausea/Vomiting/Diarrhea Time Seen by Provider: 08/17/21 13:55 Source: EMS, RN notes reviewed Mode of arrival: EMS - History of Present Illness Initial comments: 71-year-old female presents to the emergency department via EMS from home for evaluation of increased weakness over the past 2 weeks. Patient states she has multiple contributing factors including diarrhea daily for the past week, nausea and vomiting with oral intake, and shortness of breath with congested cough for the past 2 weeks. Also reports fever early on in the course of illness, but none past few days. Patient states she did have a virtual visit with her primary care provider, but has not had any follow-up since. Patient denies headache, dizziness, chest pain, abdominal pain, dysuria, and lower extremity edema. States she has not received pneumonia, influenza, nor Covid vaccines. - Related Data Home Medications Medication Instructions Recorded Confirmed Allopurinol 200 mg PO DAILY 07/21/14 08/17/21 Warfarin [Coumadin] 2.5 mg PO MOTUTHFRSA@1800 07/21/14 08/17/21 traMADol HCL [Tramadol HCl] 50 - 100 mg PO TID PRN 07/21/14 08/17/21 Cholecalciferol [Vitamin D3] 1,000 unit PO DAILY 01/29/18 08/17/21 Gabapentin [Neurontin] 100 mg PO BID 07/10/18 08/17/21 Ferrous Sulfa 324mg 324 mg PO Q48H 08/17/21 08/17/21 Folic Acid 1 mg PO DAILY 08/17/21 08/17/21 Previous Rx's Medication Instructions Recorded Metoprolol Tartrate 25 mg PO BID #60 tab 02/04/18 Allergies Allergy/AdvReac Type Severity Reaction Status Date / Time aspirin Allergy Rash/Hives Verified 08/17/21 14:45 codeine Allergy Itching Verified 08/17/21 14:45 Review of Systems ROS Statement: Those systems with pertinent positive or pertinent negative responses have been documented in the HPI. ROS Other: All systems not noted in ROS Statement are negative. Past Medical History Past Medical History: Blood Disorder, Cancer, Deep Vein Thrombosis (DVT), Hypertension, Osteoarthritis (OA), Pulmonary Embolus (PE) Additional Past Medical History / Comment(s): mthfr, uterine cancer(sx only), gout, anemia. uses 4 prong cane OR WALKER when up. BACK PAIN History of Any Multi-Drug Resistant Organisms: None Reported Past Surgical History: Hysterectomy, Orthopedic Surgery Additional Past Surgical History / Comment(s): plate and screws in right ankle, picc line-since removed, cortisone injections to knees Past Anesthesia/Blood Transfusion Reactions: No Reported Reaction Additional Past Anesthesia/Blood Transfusion Reaction / Comment(s): past blood transfusions-no reactions Past Psychological History: Depression Smoking Status: Never smoker Past Alcohol Use History: None Reported Past Drug Use History: None Reported - Past Family History Mother Family Medical History: Cancer Additional Family Medical History / Comment(s): BREAST Father Family Medical History: Coronary Artery Disease (CAD) General Exam Limitations: no limitations General appearance: alert, in no apparent distress, other (This is a well- developed, well-nourished female in no acute distress. Initial temperature 97.2, pulse 74, respirations 18, blood pressure 101/58, pulse ox 92% on 2 L.) Eye exam: Present: normal appearance, PERRL, EOMI. Absent: scleral icterus, conjunctival injection, periorbital swelling ENT exam: Present: normal exam, normal oropharynx, mucous membranes dry Neck exam: Present: normal inspection. Absent: tenderness, meningismus, lymphadenopathy Respiratory exam: Present: normal lung sounds bilaterally, other (Congested, wet-sounding cough; patient requires 2 L of oxygen to maintain oxygen saturation above 93%.). Absent: wheezes, rales, rhonchi Cardiovascular Exam: Present: regular rate, irregular rhythm GI/Abdominal exam: Present: soft, normal bowel sounds. 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 ] Respiratory 18 18 Rate Blood Pressure 101/58 Blood Pressure 101/58 133/79 [Left Arm] O2 Sat by Pulse 92 L 95 Oximetry 08/17/21 18:40 Temperature 98 F Pulse Rate Pulse Rate [ 92 Rn Team Leader ] Respiratory 18 Rate Blood Pressure Blood Pressure 100/63 [Left Arm] O2 Sat by Pulse 96 Oximetry Medical Decision Making - Medical Decision Making 71-year-old female with a history of atrial fibrillation, MTHFR, and renal disease presents to the emergency department for evaluation of multiple complaints including weakness that she attributes to nausea, vomiting, poor oral intake, and frequent diarrhea. Upon exam, patient is slightly pale and requires 2 L of oxygen to maintain a saturation greater than 93%. She does not wear oxygen at home. At this time, patient does have a congested cough, but is not short of breath at rest and is able to converse easily. Patient is currently in A. fib with a rate in the 80s. States she has been taking her Coumadin as prescribed. Has not had any episodes of chest pain. Family is present at bedside to supply additional details. Chest x-ray was obtained and shows pneumonia versus pulmonary edema. Patient's BNP is significantly elevated, however, patient did test positive for COVID-19. Additionally, patient's BUN (77) and creatinine (5.2) are quite elevated from previous levels in 2018. Troponin is elevated as well, though may be reactive. This patient's care was discussed with my attending Dr. Mata who also spoke with Dr. Madden. Results were reviewed with patient and family. Patient is agreeable to inpatient admission. - Lab Data Result diagrams: 08/17/21 14:17 08/17/21 14:17 Lab Results 08/17/21 08/17/21 08/17/21 Range/Units 14:17 14:17 14:17 WBC 9.6 (3.8-10.6) k/uL RBC 3.95 (3.80-5.40) m/uL Hgb 11.4 (11.4-16.0) gm/dL Hct 36.5 (34.0-46.0) % MCV 92.4 (80.0-100.0) fL MCH 28.9 (25.0-35.0) pg MCHC 31.2 (31.0-37.0) g/dL RDW 15.0 (11.5-15.5) % Plt Count 246 (150-450) k/uL MPV 8.0 Neutrophils % 85 % Lymphocytes % 8 % Monocytes % 6 % Eosinophils % 0 % Basophils % 0 % Neutrophils # 8.2 H (1.3-7.7) k/uL Lymphocytes # 0.7 L (1.0-4.8) k/uL Monocytes # 0.5 (0-1.0) k/uL Eosinophils # 0.0 (0-0.7) k/uL Basophils # 0.0 (0-0.2) k/uL PT 37.3 H (9.0-12.0) sec INR 3.9 H (<1.2) APTT 54.4 H (22.0-30.0) sec Sodium 136 L (137-145) mmol/L Potassium 4.1 (3.5-5.1) mmol/L Chloride 105 (98-107) mmol/L Carbon Dioxide 20 L (22-30) mmol/L Anion Gap 11 mmol/L BUN 77 H (7-17) mg/dL Creatinine 5.12 H (0.52-1.04) mg/dL Est GFR (CKD-EPI)AfAm 9 (>60 ml/min/1.73 sqM) Est GFR (CKD-EPI)NonAf 8 (>60 ml/min/1.73 sqM) Glucose 106 H (74-99) mg/dL Calcium 8.2 L (8.4-10.2) mg/dL Magnesium 1.6 (1.6-2.3) mg/dL Total Bilirubin 0.4 (0.2-1.3) mg/dL AST 44 H (14-36) U/L ALT 13 (4-34) U/L Alkaline Phosphatase 25 L (38-126) U/L Troponin I (0.000-0.034) ng/mL NT-Pro-B Natriuret Pep pg/mL Total Protein 6.0 L (6.3-8.2) g/dL Albumin 3.0 L (3.5-5.0) g/dL Urine Color Urine Appearance (Clear) Urine pH (5.0-8.0) Ur Specific [place] (1.001-1.035) Urine Protein (Negative) Urine Glucose (UA) (Negative) Urine Ketones (Negative) Urine Blood (Negative) Urine Nitrite (Negative) Urine Bilirubin (Negative) Urine Urobilinogen (<2.0) mg/dL Ur Leukocyte Esterase (Negative) Urine RBC (0-5) /hpf Urine WBC (0-5) /hpf Ur Squamous Epith Cells (0-4) /hpf Amorphous Sediment (None) /hpf Urine Bacteria (None) /hpf Coronavirus (PCR) (Not Detectd) 08/17/21 08/17/21 08/17/21 Range/Units 14:17 14:17 14:17 WBC (3.8-10.6) k/uL RBC (3.80-5.40) m/uL Hgb (11.4-16.0) gm/dL Hct (34.0-46.0) % MCV (80.0-100.0) fL MCH (25.0-35.0) pg MCHC (31.0-37.0) g/dL RDW (11.5-15.5) % Plt Count (150-450) k/uL MPV Neutrophils % % Lymphocytes % % Monocytes % % Eosinophils % % Basophils % % Neutrophils # (1.3-7.7) k/uL Lymphocytes # (1.0-4.8) k/uL Monocytes # (0-1.0) k/uL Eosinophils # (0-0.7) k/uL Basophils # (0-0.2) k/uL PT (9.0-12.0) sec INR (<1.2) APTT (22.0-30.0) sec Sodium (137-145) mmol/L Potassium (3.5-5.1) mmol/L Chloride (98-107) mmol/L Carbon Dioxide (22-30) mmol/L Anion Gap mmol/L BUN (7-17) mg/dL Creatinine (0.52-1.04) mg/dL Est GFR (CKD-EPI)AfAm (>60 ml/min/1.73 sqM) Est GFR (CKD-EPI)NonAf (>60 ml/min/1.73 sqM) Glucose (74-99) mg/dL Calcium (8.4-10.2) mg/dL Magnesium (1.6-2.3) mg/dL Total Bilirubin (0.2-1.3) mg/dL AST (14-36) U/L ALT (4-34) U/L Alkaline Phosphatase (38-126) U/L Troponin I 0.170 H* (0.000-0.034) ng/mL NT-Pro-B Natriuret Pep 33374 pg/mL Total Protein (6.3-8.2) g/dL Albumin (3.5-5.0) g/dL Urine Color Urine Appearance (Clear) Urine pH (5.0-8.0) Ur Specific [place] (1.001-1.035) Urine Protein (Negative) Urine Glucose (UA) (Negative) Urine Ketones (Negative) Urine Blood (Negative) Urine Nitrite (Negative) Urine Bilirubin (Negative) Urine Urobilinogen (<2.0) mg/dL Ur Leukocyte Esterase (Negative) Urine RBC (0-5) /hpf Urine WBC (0-5) /hpf Ur Squamous Epith Cells (0-4) /hpf Amorphous Sediment (None) /hpf Urine Bacteria (None) /hpf Coronavirus (PCR) Detected A (Not Detectd) 08/17/21 Range/Units 14:26 WBC (3.8-10.6) k/uL RBC (3.80-5.40) m/uL Hgb (11.4-16.0) gm/dL Hct (34.0-46.0) % MCV (80.0-100.0) fL MCH (25.0-35.0) pg MCHC (31.0-37.0) g/dL RDW (11.5-15.5) % Plt Count (150-450) k/uL MPV Neutrophils % % Lymphocytes % % Monocytes % % Eosinophils % % Basophils % % Neutrophils # (1.3-7.7) k/uL Lymphocytes # (1.0-4.8) k/uL Monocytes # (0-1.0) k/uL Eosinophils # (0-0.7) k/uL Basophils # (0-0.2) k/uL PT (9.0-12.0) sec INR (<1.2) APTT (22.0-30.0) sec Sodium (137-145) mmol/L Potassium (3.5-5.1) mmol/L Chloride (98-107) mmol/L Carbon Dioxide (22-30) mmol/L Anion Gap mmol/L BUN (7-17) mg/dL Creatinine (0.52-1.04) mg/dL Est GFR (CKD-EPI)AfAm (>60 ml/min/1.73 sqM) Est GFR (CKD-EPI)NonAf (>60 ml/min/1.73 sqM) Glucose (74-99) mg/dL Calcium (8.4-10.2) mg/dL Magnesium (1.6-2.3) mg/dL Total Bilirubin (0.2-1.3) mg/dL AST (14-36) U/L ALT (4-34) U/L Alkaline Phosphatase (38-126) U/L Troponin I (0.000-0.034) ng/mL NT-Pro-B Natriuret Pep pg/mL Total Protein (6.3-8.2) g/dL Albumin (3.5-5.0) g/dL Urine Color Yellow Urine Appearance Clear (Clear) Urine pH 5.0 (5.0-8.0) Ur Specific [place] 1.018 (1.001-1.035) Urine Protein 1+ H (Negative) Urine Glucose (UA) Negative (Negative) Urine Ketones Negative (Negative) Urine Blood Moderate H (Negative) Urine Nitrite Negative (Negative) Urine Bilirubin Negative (Negative) Urine Urobilinogen <2.0 (<2.0) mg/dL Ur Leukocyte Esterase Negative (Negative) Urine RBC 1 (0-5) /hpf Urine WBC 2 (0-5) /hpf Ur Squamous Epith Cells <1 (0-4) /hpf Amorphous Sediment Rare H (None) /hpf Urine Bacteria Many H (None) /hpf Coronavirus (PCR) (Not Detectd) - EKG Data Rate: normal EKG Comments: EKG was obtained at 1412 and shows atrial fibrillation. Ventricular rate 89, NM interval indeterminate, QRS duration 100, QT/QTC 372/452. - Radiology Data Radiology results: report reviewed, image reviewed Chest x-ray was obtained. Report was reviewed in its entirety. Impression per Dr. Suazo is correlate with diffuse pneumonia versus pulmonary edema. Disposition Clinical Impression: [id number] kidney injury, CHF (congestive heart failure), COVID-19, Elevated troponin Disposition: ADMITTED IP TO THIS HOSP Condition: Serious Decision Date: 08/17/21 Decision Time: 16:12
[2021-08-17 14:40] LABS: Basophils % (A) 0 %; Eosinophils % (A) 0 %; HCT 36.5 % (34.0-46.0); HGB 11.4 gm/dL (11.4-16.0); Lymphocytes # (A) 0.7 k/uL (1.0-4.8); Lymphocytes % (A) 8 %; MCH 28.9 pg (25.0-35.0); MCHC 31.2 g/dL (31.0-37.0); MCV 92.4 fL (80.0-100.0); Monocytes # (A) 0.5 k/uL (0-1.0); Monocytes % (A) 6 %; Neutrophils # (A) 8.2 k/uL (1.3-7.7); Neutrophils % (A) 85 %; Platelet Count 246 k/uL (150-450); RBC 3.95 m/uL (3.80-5.40); WBC 9.6 k/uL (3.8-10.6)
[2021-08-17 14:49] LABS: Calcium 8.2 mg/dL (8.4-10.2); Magnesium 1.6 mg/dL (1.6-2.3); Potassium 4.1 mmol/L (3.5-5.1); Total Bilirubin 0.4 mg/dL (0.2-1.3)
--- NOTE | 2021-08-17 14:54 | XR ---
EXAMINATION TYPE: XR chest 2V DATE OF EXAM: 08/17/2021 COMPARISON: 02/02/2018 TECHNIQUE: PA and lateral views submitted. HISTORY: Difficulty breathing FINDINGS: Diffuse bilateral airspace disease with cardiomegaly. Small pleural effusion suspected. Hypertrophic and degenerative change of the spine. Arthropathy shoulders. Biapical pleural thickening. IMPRESSION: 1. Correlate with diffuse pneumonia versus pulmonary edema.
[2021-08-17 14:59] LABS: Amorphous Sediment,Urine Rare /hpf; Appearance,Urine Clear (Clear); Bacteria,Urine Many /hpf; Bilirubin,Urine Negative (Negative); Blood,Urine Moderate (Negative); Color,Urine Yellow; Glucose,Urine (UA) Negative (Negative); Ketones,Urine Negative (Negative); Leukocyte Esterase,Urine Negative (Negative); Nitrite,Urine Negative (Negative); Protein,Urine 1+ (Negative); RBC,Urine 1 /hpf (0-5); Specific Gravity,Urine 1.018 (1.001-1.035); Squamous Epithelial Cell,Urine <1 /hpf (0-4); Urobilinogen,Urine <2.0 mg/dL (<2.0); WBC,Urine 2 /hpf (0-5)
[2021-08-17 15:03] LABS: INR 3.9 (<1.2); Partial Thromboplastin Time 54.4 sec (22.0-30.0); Prothrombin Time 37.3 sec (9.0-12.0)
[2021-08-17] MEDS ORDERED: FUROSEMIDE 10 MG/ML 4 ML VIAL IV STA (15:21)
[2021-08-17] MEDS ORDERED: DEXAMETHASONE SOD PHOSPHATE 10 MG/ML 1 ML VIAL IV STA (15:22)
[2021-08-17] MEDS ORDERED: NALOXONE 0.4 MG/ML 1 ML VIAL IV PRN (15:23)
[2021-08-17] MEDS ORDERED: MELATONIN 5 MG TABLET PO PRN (16:26)
--- NOTE | 2021-08-17 16:26 | US ---
EXAMINATION TYPE: US kidneys/renal and bladder DATE OF EXAM: 08/17/2021 COMPARISON: NONE CLINICAL HISTORY: 71-year-old female Covid +, KATIA TECHNIQUE: Multiple sonographic images of the kidneys and bladder are obtained. FINDINGS: EXAM MEASUREMENTS: Right Kidney: 10.6 x 5.4 x 4.7 cm Left Kidney: unable to visualize Real Estate Economist notes:*Technical limitations due to patient's body habitus 5'2" 300 pounds Right Kidney: multiple cysts noted, largest = 5.7 x 6.2 x 5.8cm. No hydronephrosis. Left Kidney: unable to visualize Bladder: not seen IMPRESSION: 1. Very limited exam due to patient body habitus. Multiple cysts are noted in the right kidney measur ing up to 6.2 cm. No hydronephrosis on the right. 2. We were unable to visualize the left kidney at this time. Unable to visualize the bladder.
--- NOTE | 2021-08-17 16:29 | P.HPIM ---
History of Present Illness H&P Date: 08/17/21 The patient is a 71-year-old female with a PMH of ARohit cason on Coumadin and chronic kidney disease who presents to the emergency room with complaints of cough, shortness of breath, and lethargy. The patient reports that she developed cold- like symptoms roughly 2 weeks ago which gradually worsened. She also reports associated nausea with vomiting due to which she was unable to tolerate most by mouth fluids. She reports feeling dehydrated and lethargic due to an inability to eat. She further reports cough productive of whitish phlegm. She notes mild shortness of breath which has been progressing. She denied experiencing chest discomfort, diarrhea, abdominal pain. Denied weakness, numbness, tingling, headaches, visual disturbances. In the emergency room, laboratory evaluation was remarkable for troponin of 0.170, current were positive, BUN 77, creatinine 5.12, and INR 3.9. Chest x-ray was consistent with pneumonia. The patient's SpO2 is 92% on room air. Review of systems: Pertinent positives and negatives as discussed in HPI, a complete review of systems was performed and all other systems are negative. Physical examination: General: non toxic, no distress, appears at stated age, morbidly obese Derm: no unusual rashes/lesions no unusual ecchymoses, warm, dry Head: atraumatic, normocephalic, symmetric Eyes: EOMI, no lid lag, anicteric sclera, pupils equal round reactive to light ENT: Nose and ears atraumatic, no thrush, no pharyngeal erythema Neck: No thyromegaly, no cervical lymphadenopathy, trachea midline, supple Mouth: no lip lesion, mucus membranes very dry Cardiovascular: S1S2 reg, no murmur, positive posterior tibial pulse bilateral, no edema, capillary refill less than 2 seconds Lungs: Diffuse rhonchi and rales, no accessory muscle use Abdominal: soft, nontender to palpation, no guarding, no appreciable organomegaly, normal bowel sounds Ext: no gross muscle atrophy, muscle strength 4 out of 5 in all 4 extremities grossly, no contractures, Neuro: CN II-XI grossly intact, light touch intact all 4 extremities, finger to nose within normal limits, Psych: Alert, oriented, appropriate affect Assessment/plan COVID-19 pneumonitis with acute hypoxic respiratory failure -Decadron -Pulmonary consulted -Zinc, vitamin C, vitamin D, melatonin -Supplemental oxygen Acute kidney injury on chronic kidney disease -Likely secondary to dehydration -IV fluids and monitor -Nephrology consulted Troponin elevation -Likely type II FL with acute stressor and hypoxic respiratory failure -Trend for now -Cardiology consulted -Cardiac monitoring A. fib on Coumadin with supratherapeutic INR -Per pharmacy dosing DVT prophylaxis -Coumadin The patient is admitted with an anticipated greater than 2 midnight stay for evaluation of COVID 19 CODE STATUS: Full Code Discussed with: patient, daughter Anticipated discharge date: unclear Anticipated discharge place: home Past Medical History Past Medical History: Blood Disorder, Cancer, Deep Vein Thrombosis (DVT), Hypertension, Osteoarthritis (OA), Pulmonary Embolus (PE) Additional Past Medical History / Comment(s): mthfr, uterine cancer(sx only), gout, anemia. uses 4 prong cane OR WALKER when up. BACK PAIN History of Any Multi-Drug Resistant Organisms: None Reported Past Surgical History: Hysterectomy, Orthopedic Surgery Additional Past Surgical History / Comment(s): plate and screws in right ankle, picc line-since removed, cortisone injections to knees Past Anesthesia/Blood Transfusion Reactions: No Reported Reaction Additional Past Anesthesia/Blood Transfusion Reaction / Comment(s): past blood transfusions-no reactions Past Psychological History: Depression Smoking Status: Never smoker Past Alcohol Use History: None Reported Past Drug Use History: None Reported - Past Family History Mother Family Medical History: Cancer Additional Family Medical History / Comment(s): BREAST Father Family Medical History: Coronary Artery Disease (CAD) Medications and Allergies Home Medications Medication Instructions Recorded Confirmed Type Allopurinol 200 mg PO DAILY 07/21/14 08/17/21 History Warfarin [Coumadin] 2.5 mg PO MOTUTHFRSA@1800 07/21/14 08/17/21 History traMADol HCL [Tramadol HCl] 50 - 100 mg PO TID PRN 07/21/14 08/17/21 History Cholecalciferol [Vitamin D3] 1,000 unit PO DAILY 01/29/18 08/17/21 History Metoprolol Tartrate 25 mg PO BID #60 tab 02/04/18 08/17/21 Rx Gabapentin [Neurontin] 100 mg PO BID 07/10/18 08/17/21 History Ferrous Sulfa 324mg 324 mg PO Q48H 08/17/21 08/17/21 History Folic Acid 1 mg PO DAILY 08/17/21 08/17/21 History Allergies Allergy/AdvReac Type Severity Reaction Status Date / Time aspirin Allergy Rash/Hives Verified 08/17/21 14:45 codeine Allergy Itching Verified 08/17/21 14:45 Physical Exam Vitals: Vital Signs Temp Pulse Resp BP Pulse Ox 08/17/21 13:28 97.2 F L 74 18 101/58 92 L Intake and Output 08/17/21 08/17/21 08/17/21 06:59 14:59 22:59 Other: Weight 136.078 kg Results CBC & Chem 7: 08/17/21 14:17 08/17/21 14:17 Labs: Abnormal Lab Results - Last 24 Hours (Table) 08/17/21 08/17/21 08/17/21 Range/Units 14:17 14:17 14:17 Neutrophils # 8.2 H (1.3-7.7) k/uL Lymphocytes # 0.7 L (1.0-4.8) k/uL PT 37.3 H (9.0-12.0) sec INR 3.9 H (<1.2) APTT 54.4 H (22.0-30.0) sec Sodium 136 L (137-145) mmol/L Carbon Dioxide 20 L (22-30) mmol/L BUN 77 H (7-17) mg/dL Creatinine 5.12 H (0.52-1.04) mg/dL Glucose 106 H (74-99) mg/dL Calcium 8.2 L (8.4-10.2) mg/dL AST 44 H (14-36) U/L Alkaline Phosphatase 25 L (38-126) U/L Troponin I (0.000-0.034) ng/mL Total Protein 6.0 L (6.3-8.2) g/dL Albumin 3.0 L (3.5-5.0) g/dL Urine Protein (Negative) Urine Blood (Negative) Amorphous Sediment (None) /hpf Urine Bacteria (None) /hpf Coronavirus (PCR) (Not Detectd) 08/17/21 08/17/21 08/17/21 Range/Units 14:17 14:17 14:26 Neutrophils # (1.3-7.7) k/uL Lymphocytes # (1.0-4.8) k/uL PT (9.0-12.0) sec INR (<1.2) APTT (22.0-30.0) sec Sodium (137-145) mmol/L Carbon Dioxide (22-30) mmol/L BUN (7-17) mg/dL Creatinine (0.52-1.04) mg/dL Glucose (74-99) mg/dL Calcium (8.4-10.2) mg/dL AST (14-36) U/L Alkaline Phosphatase (38-126) U/L Troponin I 0.170 H* (0.000-0.034) ng/mL Total Protein (6.3-8.2) g/dL Albumin (3.5-5.0) g/dL Urine Protein 1+ H (Negative) Urine Blood Moderate H (Negative) Amorphous Sediment Rare H (None) /hpf Urine Bacteria Many H (None) /hpf Coronavirus (PCR) Detected A (Not Detectd)
[2021-08-17] MEDS ORDERED: SODIUM CHLORIDE 0.9% 1,000 ML IV SCH (16:30)
[2021-08-17] MEDS ORDERED: ACETAMINOPHEN TAB 325 MG TAB PO PRN (16:53)
[2021-08-17] MEDS ORDERED: WARFARIN 0.5 MG TAB PO ONE (18:00)
[2021-08-17 20:24] LABS: Glucose,Whole Blood 113 mg/dL (75-99)
[2021-08-17] MEDS: METOPROLOL TARTRATE 25 MG TAB PO SCH (20:33)
[2021-08-17] MEDS: GABAPENTIN 100 MG CAP PO SCH (20:33)
[2021-08-18 06:17] LABS: Glucose,Whole Blood 141 mg/dL (75-99)
--- NOTE | 2021-08-18 08:47 | P.NPCON ---
History of Present Illness - Reason for Consult acute renal failure, chronic renal failure - History of Present Illness Reason for consultation: Acute kidney injury on chronic kidney disease History of present illness: Patient is a 71-year-old female seen in renal consultation for acute kidney injury on chronic kidney disease. Patient has chronic kidney disease stage IIIb with baseline creatinine near 1.5-1.8 secondary to nephrosclerosis. Patient presented to the hospital with generalized weakness going on for the last 1 week. Patient states she is mostly been in bed and not able to do the usual activities due to lack of energy. She denies any significant cough. No significant shortness of breath. No chest pain. No vomiting. She does admit to loose bowel movements. Patient tested positive for covid-19. Creatinine on admission was 5.12. Labs from today are pending. She did receive 500 mL bolus of admission and has been maintained on normal saline at 75 mL overnight. She does a history of systolic CHF with ejection fraction of 30-35% noted on echocardiogram done in 2018. Repeat echo is pending. ProBNP is elevated at 12,100. Denies use of nonsteroidals. Vital signs are stable. General: On nasal cannula. HEENT: Head exam is unremarkable. LUNGS: Breath sounds decreased. HEART: Rate and Rhythm are regular. ABDOMEN: Soft, obese. EXTREMITITES: No edema. Past Medical History Past Medical History: Blood Disorder, Cancer, Deep Vein Thrombosis (DVT), Hypertension, Osteoarthritis (OA), Pulmonary Embolus (PE) Additional Past Medical History / Comment(s): mthfr, uterine cancer(sx only), gout, anemia. uses 4 prong cane OR WALKER when up. BACK PAIN History of Any Multi-Drug Resistant Organisms: None Reported Past Surgical History: Hysterectomy, Orthopedic Surgery Additional Past Surgical History / Comment(s): plate and screws in right ankle, picc line-since removed, cortisone injections to knees Past Anesthesia/Blood Transfusion Reactions: No Reported Reaction Additional Past Anesthesia/Blood Transfusion Reaction / Comment(s): past blood transfusions-no reactions Past Psychological History: Depression Smoking Status: Never smoker Past Alcohol Use History: None Reported Past Drug Use History: None Reported - Past Family History Mother Family Medical History: Cancer Additional Family Medical History / Comment(s): BREAST Father Family Medical History: Coronary Artery Disease (CAD) Medications and Allergies Home Medications Medication Instructions Recorded Confirmed Type Allopurinol 200 mg PO DAILY 07/21/14 08/17/21 History Warfarin [Coumadin] 2.5 mg PO MOTUTHFRSA@1800 07/21/14 08/17/21 History traMADol HCL [Tramadol HCl] 50 - 100 mg PO TID PRN 07/21/14 08/17/21 History Cholecalciferol [Vitamin D3] 1,000 unit PO DAILY 01/29/18 08/17/21 History Metoprolol Tartrate 25 mg PO BID #60 tab 02/04/18 08/17/21 Rx Gabapentin [Neurontin] 100 mg PO BID 07/10/18 08/17/21 History Ferrous Sulfa 324mg 324 mg PO Q48H 08/17/21 08/17/21 History Folic Acid 1 mg PO DAILY 08/17/21 08/17/21 History Allergies Allergy/AdvReac Type Severity Reaction Status Date / Time aspirin Allergy Rash/Hives Verified 08/17/21 14:45 codeine Allergy Itching Verified 08/17/21 14:45 Physical Exam Vitals: Vital Signs Temp Pulse Pulse Resp BP BP Pulse Ox 08/18/21 08:18 98.4 F 66 18 105/66 93 L 08/18/21 06:54 95 F L 08/18/21 04:00 96.8 F L 64 18 104/66 94 L 08/18/21 02:00 71 18 08/18/21 00:00 97 F L 71 18 98/60 95 08/17/21 20:00 83 18 08/17/21 19:55 97.7 F 83 18 109/55 94 L 08/17/21 18:40 98 F 92 18 100/63 96 08/17/21 18:03 97.9 F 90 18 133/79 95 08/17/21 16:52 89 101/58 08/17/21 13:28 97.2 F L 74 18 101/58 92 L Intake and Output 08/17/21 08/18/21 08/18/21 22:59 06:59 14:59 Intake Total 375 Balance 375 Intake: Intake, IV Titration 375 Amount Sodium Chloride 0.9% 1, 375 000 ml @ 75 mls/hr IV . [id number] [facility] Rx#:[id number] Other: Voiding Method Indwelling Catheter Indwelling Catheter Weight 136.078 kg 134.5 kg Results - Lab Results Most recent lab results Calcium 8.2 mg/dL (8.4-10.2) L 08/17/21 14:17 Magnesium 1.6 mg/dL (1.6-2.3) 08/17/21 14:17 08/17/21 14:17 08/17/21 14:17 Assessment and Plan Plan: Assessment: 1. Acute kidney injury secondary to ATN secondary to COVID-19 infection. Also concern for cardiorenal syndrome. Creatinine 5.12 on admission. No hydronephrosis noted on kidney ultrasound. 2. Chronic kidney disease stage IIIB with baseline creatinine in the range of 1.5-1.8 secondary to nephrosclerosis. 3. Chronic systolic CHF with ejection fraction of 30-35%. Repeat echocar diogram pending. 4. Acute hypoxic respiratory failure secondary to COVID-19 pneumonia. 5. Metabolic acidosis secondary to acute kidney injury. Plan: Hep-Lock IV fluids. Follow-up echocardiogram. Repeat chest x-ray. Follow-up morning labs. Strict I's and O's. Has a Alvarado catheter. Thank you for the consultation. I will continue to follow the patient with you during her hospital stay.
[2021-08-18] MEDS ORDERED: FUROSEMIDE 10 MG/ML 4 ML VIAL IV SCH ×2 (09:00)
[2021-08-18] MEDS: ASCORBIC ACID 500 MG TAB PO SCH (09:43)
[2021-08-18] MEDS: ZINC SULFATE 220 MG CAP PO SCH (09:43)
[2021-08-18] MEDS: METOPROLOL TARTRATE 25 MG TAB PO SCH ×2 (09:44→20:22)
[2021-08-18] MEDS: GABAPENTIN 100 MG CAP PO SCH ×2 (09:44→20:22)
[2021-08-18] MEDS: CHOLECALCIFEROL 25 MCG (1000 IU) TABLET PO SCH (09:44)
--- NOTE | 2021-08-18 10:33 | P.CNPUL ---
History of Present Illness Consult date: 08/18/21 Reason for consult: dyspnea, pneumonia History of present illness: This is a 71-year-old female patient was been feeling ill with symptoms of fat igue and weakness and lethargy and some nausea and emesis to the point. The patient was unable to tolerate any intake of fluids orally. She was also complaining of increased cough and shortness of breath along with lethargy. It seems that the symptoms have been going on for more than 2 weeks. She presented emergency department and the patient was found to have an acute kidney injury. Creatinine was at 5.1 with a mean of 77. At that point, a chest x-ray was done that showed diffuse bilateral pulmonary infiltrates consistent with pneumonia. Her pulse ox was 92% on room air and currently the patient is on 2 L of oxygen by nasal cannula and her pulse ox is above 90%. She was started on IV fluids and currently she is on normal saline at the rate of 75 mL an hour. 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 She also has CHF and she has an ejection fraction of 30-35% based on the previous echocardiogram. Note that during this current admission, the patient tested positive for COVID 19. No blood work showed a white cell count 9.6 with a hemoglobin of 11. She has a lymphopenia of 0.7, and INR was at 3.0 with a PT of 37, her creatinine is at 5.1 much of 1 and were 0.1. Respectively, serum bicarb was 20 and the sodium level was 136. UA was showing +1 protein and a chest x-ray showing diffuse bilateral pulmonary infiltrates consistent with pneumonia over fluid overload/CHF. Note that the patient also has previous history of DVT and pulmonary embolism and she is morbidly obese. Review of Systems Constitutional: Reports fatigue, Reports lethargy, Reports weakness Eyes: denies as per HPI, denies blurred vision, denies bulging eye, denies decreased vision, denies diplopia, denies discharge, denies dry eye, denies irritation, denies itching, denies pain, denies photophobia, denies loss of peripheral vision, denies loss of vision, denies tunnel vision/blind spots Ears: deny: decreased hearing, ear discharge, earache, tinnitus Ears, nose, mouth and throat: Reports as per HPI Breasts: absent: as per HPI, change in shape, gynecomastia, masses, nipple discharge, pain, skin changes, swelling Cardiovascular: Reports decreased exercise tolerance, Reports dyspnea on exe rtion Respiratory: Reports cough, Reports dyspnea Gastrointestinal: Reports nausea, Reports vomiting Genitourinary: Reports as per HPI Menstruation: Reports as per HPI Musculoskeletal: Reports as per HPI Musculoskeletal: absent: ankle pain, ankle stiffness, ankle swelling Integumentary: Reports as per HPI Neurological: Reports as per HPI, Reports gait dysfunction, Reports weakness Psychiatric: Reports as per HPI Endocrine: Reports as per HPI Hematologic/Lymphatic: Reports as per HPI Allergic/Immunologic: Reports as per HPI Past Medical History Past Medical History: Blood Disorder, Cancer (uterine cancer), Heart Failure (EF 30-35%), Deep Vein Thrombosis (DVT), Hypertension, Osteoarthritis (OA), Pulmonary Embolus (PE), Renal Disease (Stage 3B) Additional Past Medical History / Comment(s): mthfr, uterine cancer(sx only), gout, anemia. uses 4 prong cane OR WALKER when up. BACK PAIN History of Any Multi-Drug Resistant Organisms: None Reported Past Surgical History: Hysterectomy, Orthopedic Surgery Additional Past Surgical History / Comment(s): plate and screws in right ankle, picc line-since removed, cortisone injections to knees Past Anesthesia/Blood Transfusion Reactions: No Reported Reaction Additional Past Anesthesia/Blood Transfusion Reaction / Comment(s): past blood transfusions-no reactions Past Psychological History: Depression Smoking Status: Never smoker Past Alcohol Use History: None Reported Past Drug Use History: None Reported - Past Family History Mother Family Medical History: Cancer Additional Family Medical History / Comment(s): BREAST Father Family Medical History: Coronary Artery Disease (CAD) Medications and Allergies Home Medications Medication Instructions Recorded Confirmed Type Allopurinol 200 mg PO DAILY 07/21/14 08/17/21 History Warfarin [Coumadin] 2.5 mg PO MOTUTHFRSA@1800 07/21/14 08/17/21 History traMADol HCL [Tramadol HCl] 50 - 100 mg PO TID PRN 07/21/14 08/17/21 History Cholecalciferol [Vitamin D3] 1,000 unit PO DAILY 01/29/18 08/17/21 History Metoprolol Tartrate 25 mg PO BID #60 tab 02/04/18 08/17/21 Rx Gabapentin [Neurontin] 100 mg PO BID 07/10/18 08/17/21 History Ferrous Sulfa 324mg 324 mg PO Q48H 08/17/21 08/17/21 History Folic Acid 1 mg PO DAILY 08/17/21 08/17/21 History Allergies Allergy/AdvReac Type Severity Reaction Status Date / Time aspirin Allergy Rash/Hives Verified 08/17/21 14:45 codeine Allergy Itching Verified 08/17/21 14:45 Physical Exam Vitals: Vital Signs Temp Pulse Pulse Resp BP BP Pulse Ox 08/18/21 09:48 96.4 F L 08/18/21 08:18 98.4 F 66 18 105/66 93 L 08/18/21 08:00 66 18 08/18/21 06:54 95 F L 08/18/21 04:00 96.8 F L 64 18 104/66 94 L 08/18/21 02:00 71 18 08/18/21 00:00 97 F L 71 18 98/60 95 08/17/21 20:00 83 18 08/17/21 19:55 97.7 F 83 18 109/55 94 L 08/17/21 18:40 98 F 92 18 100/63 96 08/17/21 18:03 97.9 F 90 18 133/79 95 08/17/21 16:52 89 101/58 08/17/21 13:28 97.2 F L 74 18 101/58 92 L Intake and Output 08/17/21 08/18/21 08/18/21 22:59 06:59 14:59 Intake Total 375 Output Total 200 Balance 375 -200 Intake: Intake, IV Titration 375 Amount Sodium Chloride 0.9% 1, 375 000 ml @ 75 mls/hr IV . [id number] [facility] Rx#:[id number] Output: Urine 200 Other: Voiding Method Indwelling Catheter Indwelling Catheter Indwelling Catheter Weight 136.078 kg 134.5 kg General: non toxic, no distress, appears at stated age, morbidly obese the patient is currently on 2 L by nasal cannula Derm: no unusual rashes/lesions no unusual ecchymoses, warm, dry Head: atraumatic, normocephalic, symmetric Eyes: EOMI, no lid lag, anicteric sclera, pupils equal round reactive to light ENT: Nose and ears atraumatic, no thrush, no pharyngeal erythema Neck: No thyromegaly, no cervical lymphadenopathy, trachea midline, supple Mouth: no lip lesion, mucus membranes very dry Cardiovascular: S1S2 reg, no murmur, positive posterior tibial pulse bilateral, no edema, capillary refill less than 2 seconds Lungs: Diffuse rhonchi and rales, no accessory muscle use Abdominal: soft, nontender to palpation, no guarding, no appreciable organomegaly, normal bowel sounds Ext: no gross muscle atrophy, muscle strength 4 out of 5 in all 4 extremities grossly, no contractures, Neuro: CN II-XI grossly intact, light touch intact all 4 extremities, finger to nose within normal limits, Psych: Alert, oriented, appropriate affect Results - Laboratory Findings CBC and BMP: 08/17/21 14:17 08/17/21 14:17 PT/INR, D-dimer PT 37.3 sec (9.0-12.0) H 08/17/21 14:17 INR 3.9 (<1.2) H 08/17/21 14:17 Abnormal lab findings: Abnormal Labs 08/17/21 08/17/21 08/17/21 14:17 14:17 14:17 Neutrophils # 8.2 H Lymphocytes # 0.7 L PT 37.3 H INR 3.9 H APTT 54.4 H Sodium 136 L Carbon Dioxide 20 L BUN 77 H Creatinine 5.12 H Glucose 106 H POC Glucose (mg/dL) Calcium 8.2 L AST 44 H Alkaline Phosphatase 25 L Troponin I Total Protein 6.0 L Albumin 3.0 L Urine Protein Urine Blood Amorphous Sediment Urine Bacteria Coronavirus (PCR) 08/17/21 08/17/21 08/17/21 14:17 14:17 14:26 Neutrophils # Lymphocytes # PT INR APTT Sodium Carbon Dioxide BUN Creatinine Glucose POC Glucose (mg/dL) Calcium AST Alkaline Phosphatase Troponin I 0.170 H* Total Protein Albumin Urine Protein 1+ H Urine Blood Moderate H Amorphous Sediment Rare H Urine Bacteria Many H Coronavirus (PCR) Detected A 08/17/21 08/17/21 08/17/21 18:35 20:22 21:35 Neutrophils # Lymphocytes # PT INR APTT Sodium Carbon Dioxide BUN Creatinine Glucose POC Glucose (mg/dL) 113 H Calcium AST Alkaline Phosphatase Troponin I 0.150 H* 0.141 H* Total Protein Albumin Urine Protein Urine Blood Amorphous Sediment Urine Bacteria Coronavirus (PCR) 08/18/21 06:15 Neutrophils # Lymphocytes # PT INR APTT Sodium Carbon Dioxide BUN Creatinine Glucose POC Glucose (mg/dL) 141 H Calcium AST Alkaline Phosphatase Troponin I Total Protein Albumin Urine Protein Urine Blood Amorphous Sediment Urine Bacteria Coronavirus (PCR) - Diagnostic Findings Chest x-ray: image reviewed Assessment and Plan Plan: 1 acute/subacute shortness of breath with cough and diffuse bilateral pulmonary infiltrates consistent with COVID 19 related pneumonia. Possibility of a inte rstitial edema, CHF cannot be completely occluded. I do favor pneumonia however. 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 No sclerosis with a baseline creatinine of 1.8 9 history of uterine cancer 10 osteoarthritis 11 supratherapeutic PT/INR Plan Gentle hydration. Nephrology opted to discontinue the IV fluids. Nephrology opted to put the patient on diuretics. I'll be very careful with her renal function at this point in time., With suggest stopping the diuretics for now and monitor the progress. The patient came in with intravascular volume depletion dehydration secondary to nausea and emesis I will put the patient on Decadron 6 mg IV every 24 hours We'll put the patient on oxygen at 2 L per minute nasal cannula and titrate to maintain a saturation above 90% monitor anticoagulation. PT/INR is subtherapeutic at this point in time. Monitor PT/INR and dose of Coumadin accordingly Nephrology follow-up We'll continue to follow
--- NOTE | 2021-08-18 10:55 | P.PN ---
Subjective Patient was seen and evaluated by me today. She is awake and alert. She denies any significant shortness of breath. She is having some intermittent cough. No acute events overnight reported by nursing staff. Objective - Vital Signs Vital signs: Vital Signs Temp 96.4 F L 08/18/21 09:48 Pulse 66 08/18/21 08:18 Resp 18 08/18/21 08:18 BP 105/66 08/18/21 08:18 Pulse Ox 93 L 08/18/21 08:18 Intake & Output 08/17/21 08/18/21 08/18/21 18:59 06:59 18:59 Intake Total 375 180 Output Total 200 Balance 375 -20 Weight 136.078 kg 134.5 kg Intake: Intake, IV Titration 375 Amount Sodium Chloride 0.9% 1, 375 000 ml @ 75 mls/hr IV . [id number] [facility] Rx#:[id number] Oral 180 Output: Urine 200 Other: Voiding Method Indwelling Catheter Indwelling Catheter - Exam General: The patient is awake and alert, in no distress Eye: there is normal conjunctiva bilaterally. Neck: The neck is supple, there is no JVD. Cardiovascular: Heart sounds are distant. Normal S1-S2, no S3-S4, no murmurs. Respiratory: Lungs clear to anterior chest auscultation bilaterally Gastrointestinal: Abdomen is obese but soft, nontender Musculoskeletal: There is +1 pedal edema. Neurological:. Speech is normal. Skin: Skin is warm and dry - Labs CBC & Chem 7: 08/17/21 14:17 08/17/21 14:17 Labs: Abnormal Lab Results - Last 24 Hours (Table) 08/17/21 08/17/21 08/17/21 Range/Units 14:17 14:17 14:17 Neutrophils # 8.2 H (1.3-7.7) k/uL Lymphocytes # 0.7 L (1.0-4.8) k/uL PT 37.3 H (9.0-12.0) sec INR 3.9 H (<1.2) APTT 54.4 H (22.0-30.0) sec Sodium 136 L (137-145) mmol/L Carbon Dioxide 20 L (22-30) mmol/L BUN 77 H (7-17) mg/dL Creatinine 5.12 H (0.52-1.04) mg/dL Glucose 106 H (74-99) mg/dL POC Glucose (mg/dL) (75-99) mg/dL Calcium 8.2 L (8.4-10.2) mg/dL AST 44 H (14-36) U/L Alkaline Phosphatase 25 L (38-126) U/L Troponin I (0.000-0.034) ng/mL Total Protein 6.0 L (6.3-8.2) g/dL Albumin 3.0 L (3.5-5.0) g/dL Urine Protein (Negative) Urine Blood (Negative) Amorphous Sediment (None) /hpf Urine Bacteria (None) /hpf Coronavirus (PCR) (Not Detectd) 08/17/21 08/17/21 08/17/21 Range/Units 14:17 14:17 14:26 Neutrophils # (1.3-7.7) k/uL Lymphocytes # (1.0-4.8) k/uL PT (9.0-12.0) sec INR (<1.2) APTT (22.0-30.0) sec Sodium (137-145) mmol/L Carbon Dioxide (22-30) mmol/L BUN (7-17) mg/dL Creatinine (0.52-1.04) mg/dL Glucose (74-99) mg/dL POC Glucose (mg/dL) (75-99) mg/dL Calcium (8.4-10.2) mg/dL AST (14-36) U/L Alkaline Phosphatase (38-126) U/L Troponin I 0.170 H* (0.000-0.034) ng/mL Total Protein (6.3-8.2) g/dL Albumin (3.5-5.0) g/dL Urine Protein 1+ H (Negative) Urine Blood Moderate H (Negative) Amorphous Sediment Rare H (None) /hpf Urine Bacteria Many H (None) /hpf Coronavirus (PCR) Detected A (Not Detectd) 08/17/21 08/17/21 08/17/21 Range/Units 18:35 20:22 21:35 Neutrophils # (1.3-7.7) k/uL Lymphocytes # (1.0-4.8) k/uL PT (9.0-12.0) sec INR (<1.2) APTT (22.0-30.0) sec Sodium (137-145) mmol/L Carbon Dioxide (22-30) mmol/L BUN (7-17) mg/dL Creatinine (0.52-1.04) mg/dL Glucose (74-99) mg/dL POC Glucose (mg/dL) 113 H (75-99) mg/dL Calcium (8.4-10.2) mg/dL AST (14-36) U/L Alkaline Phosphatase (38-126) U/L Troponin I 0.150 H* 0.141 H* (0.000-0.034) ng/mL Total Protein (6.3-8.2) g/dL Albumin (3.5-5.0) g/dL Urine Protein (Negative) Urine Blood (Negative) Amorphous Sediment (None) /hpf Urine Bacteria (None) /hpf Coronavirus (PCR) (Not Detectd) 08/18/21 Range/Units 06:15 Neutrophils # (1.3-7.7) k/uL Lymphocytes # (1.0-4.8) k/uL PT (9.0-12.0) sec INR (<1.2) APTT (22.0-30.0) sec Sodium (137-145) mmol/L Carbon Dioxide (22-30) mmol/L BUN (7-17) mg/dL Creatinine (0.52-1.04) mg/dL Glucose (74-99) mg/dL POC Glucose (mg/dL) 141 H (75-99) mg/dL Calcium (8.4-10.2) mg/dL AST (14-36) U/L Alkaline Phosphatase (38-126) U/L Troponin I (0.000-0.034) ng/mL Total Protein (6.3-8.2) g/dL Albumin (3.5-5.0) g/dL Urine Protein (Negative) Urine Blood (Negative) Amorphous Sediment (None) /hpf Urine Bacteria (None) /hpf Coronavirus (PCR) (Not Detectd) Assessment and Plan Assessment: This is a 71-year-old female with a very complex past medical history noted below who presented to the emergency room with progressive weakness and fatigue. Patient was evaluated in the ER and admitted to the hospital for further management of her medical problems noted below. 1. COVID-19 pneumonia: Started on Decadron day #2. Continue vitamin C, vitamin D, and zinc supplement. Seen and evaluated by pulmonary. Appreciate recommendations. 2. Acute kidney injury on chronic kidney disease. Probably attributed to cardiorenal syndrome with possible ATN. Patient was seen and evaluated by nephrology. Kidney ultrasound with poor visualization secondary to body habitus. 3. Acute systolic and diastolic heart failure exacerbation. Continue IV Lasix 40 mg twice daily. Repeat echocardiogram ordered. EF in 2018 was 35%. 4. History of chronic PE/DVT on anticoagulation with Coumadin. Dose by pharm acy 5. Chronic medical problems: Morbid obesity, physical debility secondary to morbid obesity, hypertension, osteoarthritis,
[2021-08-18] MEDS: dexAMETHasone 2 MG TAB PO SCH (12:17)
[2021-08-18 12:43] LABS: HCT 32.4 % (34.0-46.0); HGB 10.7 gm/dL (11.4-16.0); MCH 30.3 pg (25.0-35.0); MCHC 33.2 g/dL (31.0-37.0); MCV 91.3 fL (80.0-100.0); Mean Platelet Volume 7.7; Platelet Count 284 k/uL (150-450); RBC 3.55 m/uL (3.80-5.40); RDW 15.5 % (11.5-15.5); WBC 7.4 k/uL (3.8-10.6)
[2021-08-18 12:56] LABS: Prothrombin Time 53.9 sec (9.0-12.0)
[2021-08-18 13:04] LABS: Albumin 2.8 g/dL (3.5-5.0); Calcium 8.1 mg/dL (8.4-10.2); Magnesium 1.8 mg/dL (1.6-2.3); Potassium 3.9 mmol/L (3.5-5.1); Total Bilirubin 0.3 mg/dL (0.2-1.3); Total Protein 5.7 g/dL (6.3-8.2)
[2021-08-18 13:18] LABS: INR 5.6 (<1.2)
--- NOTE | 2021-08-18 13:32 | P.CRDCN ---
History of Present Illness Consult date: 08/18/21 Consult reason: congestive heart failure (Elevated troponins) History of present illness: HISTORY OF PRESENT ILLNESS This is a 71 year old female with past medical history of pulmonary embolism 2008 following DVT in the knee, chronic systolic heart failure with known EF of 30-35%, chronic kidney disease stage IV, morbid obesity, oste oporosis with compression fractures of the lumbar spine. Patient presented to [facility] emergency center due to fatigue and weakness, nausea and emesis, unable to tolerate any intake along with increased cough and shortness of breath and lethargy. Chest x-ray showed diffuse pneumonia versus pulmonary edema. She was also and she was diagnosed with acute kidney injury with BUN of 77 and creatinine 5.1. Initial CBC was unremarkable. Troponin 0.170, 0.150, 0.141. COVID-19 PCR d etected. INR 3.9 and repeat 5.6. REVIEW OF SYSTEMS Constitutional: No fever, no chills. Reported weakness, reported fatigue reported lethargy. EENT: No headache. No dizziness. Lungs: No shortness of breath, cough, no sputum production. No wheezing. Cardiovascular: No chest pain, no lower extremity edema. No palpitations. No paroxysmal nocturnal dyspnea. No orthopnea. No lightheadedness or dizziness. No syncopal episodes. Abdominal: No abdominal pain. Reported nausea, reported vomiting. No diarrhea. No constipation. No bloody or tarry stools reported loss of appetite. Genitourinary: No dysuria.. No urinary retention. Musculoskeletal: No myalgias. Reported muscle weakness, no gait dysfunction, no frequent falls. No back pain. No neck pain. Integumentary: No wounds, no lesions. No rash or pruritus. No unusual bruising. Neurologic: No aphasia. No facial droop. No change in mentation. No head injury. No headache. No paralysis. No paresthesia. Psychiatric: No depression. No anxiety. Endocrine: No abnormal blood sugars. PHYSICAL EXAMINATION Gen: This is a 71-year-old female. VS: Afebrile, 74 heart rate, blood pressure 105/66, pulse ox 93% on room air. Physical examination deferred due to COVID 19 isolation ASSESSMENT Covid 19 pneumonia Nausea and vomiting Elevated troponins secondary to COVID-19 and renal failure, acute coronary syndrome ruled out Acute kidney injury Chronic kidney disease History of pulmonary embolism and DVT Morbid obesity Chronic systolic heart failure Hypertension Hypercoagulopathy secondary to Coumadin and COVID-19 PLAN Continue Lasix 40 mg IV every 12 hours, Lopressor 25 mg twice daily Hold Coumadin and continue to monitor closely Continue Covid 19 treatment per pulmonary medicine Further recommendations to follow based upon clinical course Thank you kindly for this consultation. Nurse practitioner note has been reviewed, I agree with documented findings and plan of care. Patient was seen and examined. Past Medical History Past Medical History: Blood Disorder, Cancer, Deep Vein Thrombosis (DVT), Hypertension, Osteoarthritis (OA), Pulmonary Embolus (PE) Additional Past Medical History / Comment(s): mthfr, uterine cancer(sx only), gout, anemia. uses 4 prong cane OR WALKER when up. BACK PAIN History of Any Multi-Drug Resistant Organisms: None Reported Past Surgical History: Hysterectomy, Orthopedic Surgery Additional Past Surgical History / Comment(s): plate and screws in right ankle, picc line-since removed, cortisone injections to knees Past Anesthesia/Blood Transfusion Reactions: No Reported Reaction Additional Past Anesthesia/Blood Transfusion Reaction / Comment(s): past blood transfusions-no reactions Past Psychological History: Depression Smoking Status: Never smoker Past Alcohol Use History: None Reported Past Drug Use History: None Reported - Past Family History Mother Family Medical History: Cancer Additional Family Medical History / Comment(s): BREAST Father Family Medical History: Coronary Artery Disease (CAD) Medications and Allergies Home Medications Medication Instructions Recorded Confirmed Type Allopurinol 200 mg PO DAILY 07/21/14 08/17/21 History Warfarin [Coumadin] 2.5 mg PO [id number]@1800 07/21/14 08/17/21 History traMADol HCL [Tramadol HCl] 50 - 100 mg PO TID PRN 07/21/14 08/17/21 History Cholecalciferol [Vitamin D3] 1,000 unit PO DAILY 01/29/18 08/17/21 History Metoprolol Tartrate 25 mg PO BID #60 tab 02/04/18 08/17/21 Rx Gabapentin [Neurontin] 100 mg PO BID 07/10/18 08/17/21 History Ferrous Sulfa 324mg 324 mg PO Q48H 08/17/21 08/17/21 History Folic Acid 1 mg PO DAILY 08/17/21 08/17/21 History Allergies Allergy/AdvReac Type Severity Reaction Status Date / Time aspirin Allergy Rash/Hives Verified 08/17/21 14:45 codeine Allergy Itching Verified 08/17/21 14:45 Physical Exam Vitals: Vital Signs Temp Pulse Pulse Resp BP BP Pulse Ox 08/18/21 09:48 96.4 F L 08/18/21 08:18 98.4 F 66 18 105/66 93 L 08/18/21 06:54 95 F L 08/18/21 04:00 96.8 F L 64 18 104/66 94 L 08/18/21 02:00 71 18 08/18/21 00:00 97 F L 71 18 98/60 95 08/17/21 20:00 83 18 08/17/21 19:55 97.7 F 83 18 109/55 94 L 08/17/21 18:40 98 F 92 18 100/63 96 08/17/21 18:03 97.9 F 90 18 133/79 95 08/17/21 16:52 89 101/58 08/17/21 13:28 97.2 F L 74 18 101/58 92 L Intake and Output 08/17/21 08/18/21 08/18/21 22:59 06:59 14:59 Intake Total 375 Balance 375 Intake: Intake, IV Titration 375 Amount Sodium Chloride 0.9% 1, 375 000 ml @ 75 mls/hr IV . [id number] [facility] Rx#:[id number] Other: Voiding Method Indwelling Catheter Indwelling Catheter Weight 136.078 kg 134.5 kg Results 08/18/21 12:05 08/18/21 12:05 Cardiac Enzymes 08/17/21 08/17/21 08/17/21 Range/Units 14:17 14:17 18:35 AST 44 H (14-36) U/L Troponin I 0.170 H* 0.150 H* (0.000-0.034) ng/mL 08/17/21 Range/Units 21:35 AST (14-36) U/L Troponin I 0.141 H* (0.000-0.034) ng/mL Coagulation 08/17/21 Range/Units 14:17 PT 37.3 H (9.0-12.0) sec APTT 54.4 H (22.0-30.0) sec CBC 08/17/21 Range/Units 14:17 WBC 9.6 (3.8-10.6) k/uL RBC 3.95 (3.80-5.40) m/uL Hgb 11.4 (11.4-16.0) gm/dL Hct 36.5 (34.0-46.0) % Plt Count 246 (150-450) k/uL Comprehensive Metabolic Panel 08/17/21 Range/Units 14:17 Sodium 136 L (137-145) mmol/L Potassium 4.1 (3.5-5.1) mmol/L Chloride 105 (98-107) mmol/L Carbon Dioxide 20 L (22-30) mmol/L BUN 77 H (7-17) mg/dL Creatinine 5.12 H (0.52-1.04) mg/dL Glucose 106 H (74-99) mg/dL Calcium 8.2 L (8.4-10.2) mg/dL AST 44 H (14-36) U/L ALT 13 (4-34) U/L Alkaline Phosphatase 25 L (38-126) U/L Total Protein 6.0 L (6.3-8.2) g/dL Albumin 3.0 L (3.5-5.0) g/dL Current Medications Generic Name Dose Route Start Last Admin Trade Name Merrillq PRN Reason Stop Dose Admin Acetaminophen 650 mg 08/17/21 16:53 08/17/21 17:02 Acetaminophen Tab 325 Mg Tab PO 650 mg Q6HR PRN Administration Fever and/ or Pain Ascorbic Acid 1,000 mg 08/18/21 09:00 08/18/21 09:43 Ascorbic Acid 500 Mg Tab PO 1,000 mg DAILY [facility] Administration Cholecalciferol 125 mcg 08/18/21 09:00 08/18/21 09:44 Cholecalciferol 25 Mcg (1000 Iu) Tablet PO 125 mcg DAILY [facility] Administration Furosemide 40 mg 08/18/21 09:00 Furosemide 10 Mg/Ml 4 Ml Vial IV Q12HR [facility] Gabapentin 100 mg 08/17/21 21:00 08/18/21 09:44 Gabapentin 100 Mg Cap PO 100 mg BID [facility] Administration Melatonin 5 mg 08/17/21 16:26 Melatonin 5 Mg Tablet PO HS PRN Insomnia Metoprolol Tartrate 25 mg 08/17/21 21:00 08/18/21 09:44 Metoprolol Tartrate 25 Mg Tab PO 25 mg BID [facility] Administration Miscellaneous Information 1 each 08/17/21 16:28 Warfarin Per Pharmacy MISCELLANE DIRECTED PRN Per Protocol Protocol Naloxone HCl 0.2 mg 08/17/21 15:23 Naloxone 0.4 Mg/Ml 1 Ml Vial IV Q2M PRN Opioid Reversal Zinc Sulfate 220 mg 08/18/21 09:00 08/18/21 09:43 Zinc Sulfate 220 Mg Cap PO 220 mg DAILY [facility] Administration Intake and Output 08/17/21 08/18/21 08/18/21 22:59 06:59 14:59 Intake Total 375 Balance 375 Intake: Intake, IV Titration 375 Amount Sodium Chloride 0.9% 1, 375 000 ml @ 75 mls/hr IV . [id number] [facility] Rx#:[id number] Other: Voiding Method Indwelling Catheter Indwelling Catheter Weight 136.078 kg 134.5 kg 08/17/21 14:17 08/17/21 14:17
--- NOTE | 2021-08-18 13:51 | ECHOF ---
Referral Reason:CHF MEASUREMENTS -------- HEIGHT: 157.5 cm WEIGHT: 134.3 kg BP: IVSd: 1.2 cm (0.6 - 1.1) LVIDd: 4.9 cm (3.9 - 5.3) LVPWd: 1.4 cm (0.6 - 1.1) EDV(Teich): 114 ml IVSs: 1.6 cm LVIDs: 3.4 cm LVPWs: 1.8 cm %IVS Thck: 38 % ESV(Teich): 49 ml EF(Teich): 57 % %FS: 30 % SV(Teich): 66 ml Ao Diam: 2.9 cm (2.0 - 3.7) LA Diam: 4.6 cm (2.7 - 3.8) AV Cusp: 1.8 cm (1.5 - 2.6) EPSS: 2.1 cm MV E Iker: 0.95 m/s MV DecT: 249 ms MV Dec Keith: 3.8 m/s MV A Iker: 0.23 m/s MV E/A Ratio: 4.17 MV PHT: 72 ms MR Vmax: 2.50 m/s MR maxP.94 mmHg TR Vmax: 1.94 m/s TR maxP.01 mmHg RAP: 5.00 mmHg RVSP: 20.01 mmHg MV EF SLOPE: 53.65 mm/s (70 - 150) MV EXCURSION: 8.58 mm (> 18.000) FINDINGS -------- This was a technically difficult study with suboptimal views. The left ventricular size is normal. There is mild concentric left ventricular hypertrophy. There is mild global hypokinesis of LV . Overall left ventricular systolic function is mildly impaired w ith, an EF between 45 - 50 %. The RV was not well visualized. The left atrium was not well visualized. The right atrium was not well visualized. 5.0mg of Lumason was utilized for enhancement of images The aortic valve was not well visualized. The mitral valve was not well visualized. There is trace mitral regurgitation. The tricuspid valve was not well visualized. Trace tricuspid regurgitation present. Right ventric ular systolic pressure is normal at < 35 mmHg. The pulmonic valve was not well visualized. The aortic root size is normal. There is no pericardial effusion. CONCLUSIONS -------- 1. The left ventricular size is normal. 2. There is mild concentric left ventricular hypertrophy. 3. There is mild global hypokinesis of LV . 4. Overall left ventricular systolic function is mildly impaired with, an EF between 45 - 50 %. 5. There is trace mitral regurgitation. 6. Trace tricuspid regurgitation present. 7. There is no pericardial effusion. [employer] WORKER: Morenita Hopkins RDCS
[2021-08-18 16:55] LABS: Glucose,Whole Blood 148 mg/dL (75-99)
[2021-08-18] MEDS ORDERED: WARFARIN 0.5 MG TAB PO ONE (18:00)
[2021-08-18 20:25] LABS: Glucose,Whole Blood 153 mg/dL (75-99)
[2021-08-19 06:36] LABS: Glucose,Whole Blood 129 mg/dL (75-99)
--- NOTE | 2021-08-19 07:59 | XR ---
EXAMINATION TYPE: XR chest 1V DATE OF EXAM: 08/19/2021 COMPARISON: 08/17/2021 INDICATION: Short of breath TECHNIQUE: Single frontal view of the chest is obtained. FINDINGS: The heart size is upper limits normal. The pulmonary vasculature is normal. There is diffuse patchy infiltrate present bilaterally. This is improving from comparison. Continued follow-up is recommended IMPRESSION: 1. Improving patchy bilateral lung infiltrates can be compatible with atypical pneumonia. Continued f ollow-up is recommended.
[2021-08-19] MEDS: CHOLECALCIFEROL 25 MCG (1000 IU) TABLET PO SCH (08:26)
[2021-08-19] MEDS: dexAMETHasone 2 MG TAB PO SCH (08:26)
[2021-08-19] MEDS: ZINC SULFATE 220 MG CAP PO SCH (08:27)
[2021-08-19] MEDS: ASCORBIC ACID 500 MG TAB PO SCH (08:27)
[2021-08-19] MEDS: METOPROLOL TARTRATE 25 MG TAB PO SCH ×2 (08:27→20:30)
[2021-08-19] MEDS: GABAPENTIN 100 MG CAP PO SCH ×2 (08:28→20:31)
--- NOTE | 2021-08-19 09:09 | P.PN ---
Subjective Patient is seen in follow-up for acute kidney injury and chronic any disease. Patient has not received Lasix this admission. Chest x-ray from today shows no gross evidence of heart failure. Denies chest pain or shortness of breath. She is on 2 L nasal cannula. No edema. Urine output 500 mL in the last 24 hours. She has a Alvarado catheter. Vital signs are stable. General: The patient appeared well nourished and normally developed. HEENT: Head exam is unremarkable. LUNGS: Breath sounds decreased. HEART: Rate and Rhythm are regular. ABDOMEN: Soft, obese. EXTREMITITES: No edema. Objective - Vital Signs Vital signs: Vital Signs Temp 96.8 F L 08/19/21 08:22 Pulse 70 08/19/21 08:22 Resp 18 08/19/21 08:22 BP 104/66 08/19/21 08:22 Pulse Ox 92 L 08/19/21 08:22 Intake & Output 08/18/21 08/19/21 08/19/21 18:59 06:59 18:59 Intake Total 420 10 10 Output Total 200 300 Balance 220 -290 10 Weight 135 kg Intake: IV 10 10 Invasive Line 2 10 10 Oral 420 Output: Urine 200 300 Other: Voiding Method Indwelling Catheter Indwelling Catheter # Bowel Movements 1 - Labs CBC & Chem 7: 08/18/21 12:05 08/18/21 12:05 Labs: Abnormal Lab Results - Last 24 Hours (Table) 08/18/21 08/18/21 08/18/21 Range/Units 12:05 12:05 12:05 RBC 3.55 L (3.80-5.40) m/uL Hgb 10.7 L (11.4-16.0) gm/dL Hct 32.4 L (34.0-46.0) % PT 53.9 H (9.0-12.0) sec INR 5.6 H* (<1.2) Carbon Dioxide 21 L (22-30) mmol/L BUN 82 H (7-17) mg/dL Creatinine 4.89 H (0.52-1.04) mg/dL Glucose 141 H (74-99) mg/dL POC Glucose (mg/dL) (75-99) mg/dL Calcium 8.1 L (8.4-10.2) mg/dL Alkaline Phosphatase 22 L (38-126) U/L Total Protein 5.7 L (6.3-8.2) g/dL Albumin 2.8 L (3.5-5.0) g/dL 08/18/21 08/18/21 08/19/21 Range/Units 16:53 20:17 06:28 RBC (3.80-5.40) m/uL Hgb (11.4-16.0) gm/dL Hct (34.0-46.0) % PT (9.0-12.0) sec INR (<1.2) Carbon Dioxide (22-30) mmol/L BUN (7-17) mg/dL Creatinine (0.52-1.04) mg/dL Glucose (74-99) mg/dL POC Glucose (mg/dL) 148 H 153 H 129 H (75-99) mg/dL Calcium (8.4-10.2) mg/dL Alkaline Phosphatase (38-126) U/L Total Protein (6.3-8.2) g/dL Albumin (3.5-5.0) g/dL Assessment and Plan Plan: Assessment: 1. Acute kidney injury secondary to ATN secondary to COVID-19 infection. Also concern for cardiorenal syndrome - chest x-ray from today shows no gross evidence of heart failure. Creatinine 5.12 on admission - 4.89 yesterday. No hydronephrosis noted on kidney ultrasound. 2. Chronic kidney disease stage IIIB with baseline creatinine in the range of 1.5-1.8 secondary to nephrosclerosis. 3. Chronic systolic CHF with ejection fraction of 45-50%. 4. Acute hypoxic respiratory failure secondary to COVID-19 pneumonia. 5. Metabolic acidosis secondary to acute kidney injury. Plan: Start normal saline at 50 mL an hour. If urine output drops, will give 1 dose of IV Lasix. Patient has not received Lasix this admission so far. Follow-up morning labs. Strict I's and O's. Has a Alvarado catheter. Discussed with the patient that if no improvement in renal function in the next 24-48 hours, then will need to consider renal replacement therapy. She understands.
[2021-08-19] MEDS: SODIUM CHLORIDE 0.9% 1,000 ML IV SCH (09:21)
--- NOTE | 2021-08-19 09:40 | P.PN ---
Subjective Progress Note Date: 08/19/21 This is a 71-year-old female patient was been feeling ill with symptoms of fati jessica and weakness and lethargy and some nausea and emesis to the point. The patient was unable to tolerate any intake of fluids orally. She was also complaining of increased cough and shortness of breath along with lethargy. It seems that the symptoms have been going on for more than 2 weeks. She presented emergency department and the patient was found to have an acute kidney injury. Creatinine was at 5.1 with a mean of 77. At that point, a chest x-ray was done that showed diffuse bilateral pulmonary infiltrates consistent with pneumonia. Her pulse ox was 92% on room air and currently the patient is on 2 L of oxygen by nasal cannula and her pulse ox is above 90%. She was started on IV fluids and currently she is on normal saline at the rate of 75 mL an hour. 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 She also has CHF and she has an ejection fraction of 30-35% based on the previous echocardiogram. Note that during this current admission, the patient tested positive for COVID 19. No blood work showed a white cell count 9.6 with a hemoglobin of 11. She has a lymphopenia of 0.7, and INR was at 3.0 with a PT of 37, her creatinine is at 5.1 much of 1 and were 0.1. Respectively, serum bicarb was 20 and the sodium level was 136. UA was showing +1 protein and a chest x-ray showing diffuse bilateral pulmonary infiltrates consistent with pneumonia over fluid overload/CHF. Note that the patient also has previous history of DVT and pulmonary embolism and she is morbidly obese. On today's evaluation of 08/19/2021, the patient is feeling well. She has a Alvarado catheter in place. She is producing adequate amount of urine output. The levels are not back yet. She remains on oxygen at 2 L per minute nasal cannula. She is afebrile. She is on Decadron 6 mg by mouth on a daily basis. Her overall urine output has been 500 mL over the past 24 hours. Noted creatinine is on the rise and fell to 5.12 and the ultrasound the kidneys showed no evidence of any mental hydronephrosis. Based on that, the patient was started on a gentle hydration with normal state rate at the rate of 50 mL an hour. Lasix was discontinued. Objective - Vital Signs Vital signs: Vital Signs Temp 96.8 F L 08/19/21 08:22 Pulse 70 08/19/21 08:22 Resp 18 08/19/21 08:22 BP 104/66 08/19/21 08:22 Pulse Ox 92 L 08/19/21 08:22 Intake & Output 08/18/21 08/19/21 08/19/21 18:59 06:59 18:59 Intake Total 420 10 10 Output Total 200 300 Balance 220 -290 10 Weight 135 kg Intake: IV 10 10 Invasive Line 2 10 10 Oral 420 Output: Urine 200 300 Other: Voiding Method Indwelling Catheter Indwelling Catheter Indwelling Catheter # Bowel Movements 1 - Exam General: non toxic, no distress, appears at stated age, morbidly obese the patient is currently on 2 L by nasal cannula Derm: no unusual rashes/lesions no unusual ecchymoses, warm, dry Head: atraumatic, normocephalic, symmetric Eyes: EOMI, no lid lag, anicteric sclera, pupils equal round reactive to light ENT: Nose and ears atraumatic, no thrush, no pharyngeal erythema Neck: No thyromegaly, no cervical lymphadenopathy, trachea midline, supple Mouth: no lip lesion, mucus membranes very dry Cardiovascular: S1S2 reg, no murmur, positive posterior tibial pulse bilateral, no edema, capillary refill less than 2 seconds Lungs: Diffuse rhonchi and rales, no accessory muscle use Abdominal: soft, nontender to palpation, no guarding, no appreciable organomegaly, normal bowel sounds Ext: no gross muscle atrophy, muscle strength 4 out of 5 in all 4 extremities grossly, no contractures, Neuro: CN II-XI grossly intact, light touch intact all 4 extremities, finger to nose within normal limits, Psych: Alert, oriented, appropriate affect - Labs CBC & Chem 7: 08/18/21 12:05 08/18/21 12:05 Labs: Abnormal Lab Results - Last 24 Hours (Table) 08/18/21 08/18/21 08/18/21 Range/Units 12:05 12:05 12:05 RBC 3.55 L (3.80-5.40) m/uL Hgb 10.7 L (11.4-16.0) gm/dL Hct 32.4 L (34.0-46.0) % PT 53.9 H (9.0-12.0) sec INR 5.6 H* (<1.2) Carbon Dioxide 21 L (22-30) mmol/L BUN 82 H (7-17) mg/dL Creatinine 4.89 H (0.52-1.04) mg/dL Glucose 141 H (74-99) mg/dL POC Glucose (mg/dL) (75-99) mg/dL Calcium 8.1 L (8.4-10.2) mg/dL Alkaline Phosphatase 22 L (38-126) U/L Total Protein 5.7 L (6.3-8.2) g/dL Albumin 2.8 L (3.5-5.0) g/dL 08/18/21 08/18/21 08/19/21 Range/Units 16:53 20:17 06:28 RBC (3.80-5.40) m/uL Hgb (11.4-16.0) gm/dL Hct (34.0-46.0) % PT (9.0-12.0) sec INR (<1.2) Carbon Dioxide (22-30) mmol/L BUN (7-17) mg/dL Creatinine (0.52-1.04) mg/dL Glucose (74-99) mg/dL POC Glucose (mg/dL) 148 H 153 H 129 H (75-99) mg/dL Calcium (8.4-10.2) mg/dL Alkaline Phosphatase (38-126) U/L Total Protein (6.3-8.2) g/dL Albumin (3.5-5.0) g/dL Assessment and Plan Plan: 1 acute/subacute shortness of breath with cough and diffuse bilateral pulmonary infiltrates consistent with COVID 19 related pneumonia. Possibility of a interstitial edema, CHF cannot be completely occluded. I do favor pneumonia however. Note that this is not a vaccinated person or COVID 19 2 nausea and emesis and intravascular volume depletion secondary to COVID 19 3 chronic stage III B kidney disease with acute kidney injury on top of chronic renal failure related to dehydration and intravascular volume depletion, and the patient was gently hydrated 4 previous history of DVT and pulmonary embolism and the patient is on warfarin, supratherapeutic PT/INR 5 morbid obesity 6 sedentary lifestyle and the patient has been essentially inactive mostly without murmur can the walker 7 congestion heart failure with an ejection fraction of 30-35% 8 hypertension with a hypertensive. No sclerosis with a baseline creatinine of 1.8 9 history of uterine cancer 10 osteoarthritis 11 supratherapeutic PT/INR Plan Gentle hydration. Hold diuretics Monitor renal function Nephrology opted to put the patient on diuretics. I'll be very careful with her renal function at this point in time., With suggest stopping the diuretics for now and monitor the progress. The patient came in with intravascular volume depletion dehydration secondary to nausea and emesis Decadron 6 mg IV every 24 hours We'll put the patient on oxygen at 2 L per minute nasal cannula and titrate to maintain a saturation above 90% monitor anticoagulation. PT/INR is subtherapeutic at this point in time. Monitor PT/INR and dose of Coumadin accordingly Nephrology follow-up Repeat chest x-ray in am We'll continue to follow
[2021-08-19 11:27] LABS: Glucose,Whole Blood 153 mg/dL (75-99)
[2021-08-19 13:03] LABS: Prothrombin Time 57.8 sec (9.0-12.0)
[2021-08-19 13:25] LABS: Calcium 8.5 mg/dL (8.4-10.2); Magnesium 1.8 mg/dL (1.6-2.3)
[2021-08-19 13:26] LABS: Potassium 4.3 mmol/L (3.5-5.1)
[2021-08-19] MEDS ORDERED: PHYTONADIONE ORAL 5 MG/5 ML ORAL.SYRG PO STA (13:45)
--- NOTE | 2021-08-19 13:48 | P.PN ---
Subjective Progress Note Date: 08/19/21 HISTORY OF PRESENT ILLNESS This is a 71 year old female with past medical history of pulmonary e mbolism 2008 following DVT in the knee, chronic systolic heart failure with known EF of 30-35%, chronic kidney disease stage IV, morbid obesity, osteoporosis with compression fractures of the lumbar spine. Patient presented to [facility] emergency center due to fatigue and weakness, nausea and emesis, unable to tolerate any intake along with increased cough and shortness of breath and lethargy. Chest x-ray showed diffuse pneumonia versus pulmonary edema. She was also and she was diagnosed with acute kidney injury with BUN of 77 and creatinine 5.1. Initial CBC was unremarkable. Troponin 0.170, 0.150, 0.141. COVID-19 PCR detected. INR 3.9 and repeat 5.6. 08/19/2021: Repeat blood work reveals INR 6.0. Patient has been off Coumadin. BUN 92 creatinine 4.68, potassium 4.3. Magnesium 1.8. Echocardiogram reveals EF of 45-50% with mild concentric left hypertrophy, mild global hypokinesia of the LV, trace mitral regurgitation, trace tricuspid regurgitation. Repeat chest x-ray reveals improving patchy bilateral lung infiltrates can be compatible with atypical pneumonia. IV Lasix has been discontinued. Patient may need to consider renal replacement therapy. PHYSICAL EXAMINATION Gen: This is a 71-year-old female. VS: Blood pressure 113/75, heart rate 64, pulse ox 92% on room air. Temperature site 96.8. Physical examination deferred due to COVID 19 isolation ASSESSMENT Covid 19 pneumonia Nausea and vomiting Elevated troponins secondary to COVID-19 and renal failure, acute coronary syndrome ruled out Acute kidney injury Chronic kidney disease History of pulmonary embolism and DVT Morbid obesity Chronic systolic heart failure Hypertension Hypercoagulopathy secondary to Coumadin and COVID-19 PLAN Patient is off Lasix Continue Lopressor 25 mg twice daily Hold Coumadin and continue to monitor INR closely Continue Covid 19 treatment per pulmonary medicine Further recommendations to follow based upon clinical course Thank you kindly for this consultation. Nurse practitioner note has been reviewed, I agree with documented findings and plan of care. Patient was seen and examined. Objective - Vital Signs Vital signs: Vital Signs Temp 96.8 F L 08/19/21 11:58 Pulse 64 08/19/21 11:58 Resp 18 08/19/21 11:58 BP 113/75 11/14/21 11:58 Pulse Ox 92 L 08/19/21 11:58 Intake & Output 08/18/21 08/19/21 08/19/21 18:59 06:59 18:59 Intake Total 420 10 160 Output Total 200 300 Balance 220 -290 160 Weight 135 kg Intake: IV 10 160 Invasive Line 2 10 10 Sodium Chloride 0.9% 1, 150 000 ml @ 50 mls/hr IV . Q20H [facility] Rx#:[id number] Oral 420 Output: Urine 200 300 Other: Voiding Method Indwelling Catheter Indwelling Catheter Indwelling Catheter # Bowel Movements 1 - Labs CBC & Chem 7: 08/18/21 12:05 08/19/21 12:17 Labs: Abnormal Lab Results - Last 24 Hours (Table) 08/18/21 08/18/21 08/18/21 Range/Units 12:05 12:05 12:05 RBC 3.55 L (3.80-5.40) m/uL Hgb 10.7 L (11.4-16.0) gm/dL Hct 32.4 L (34.0-46.0) % PT 53.9 H (9.0-12.0) sec INR 5.6 H* (<1.2) Carbon Dioxide 21 L (22-30) mmol/L BUN 82 H (7-17) mg/dL Creatinine 4.89 H (0.52-1.04) mg/dL Glucose 141 H (74-99) mg/dL POC Glucose (mg/dL) (75-99) mg/dL Calcium 8.1 L (8.4-10.2) mg/dL Alkaline Phosphatase 22 L (38-126) U/L Total Protein 5.7 L (6.3-8.2) g/dL Albumin 2.8 L (3.5-5.0) g/dL 08/18/21 08/18/21 08/19/21 Range/Units 16:53 20:17 06:28 RBC (3.80-5.40) m/uL Hgb (11.4-16.0) gm/dL Hct (34.0-46.0) % PT (9.0-12.0) sec INR (<1.2) Carbon Dioxide (22-30) mmol/L BUN (7-17) mg/dL Creatinine (0.52-1.04) mg/dL Glucose (74-99) mg/dL POC Glucose (mg/dL) 148 H 153 H 129 H (75-99) mg/dL Calcium (8.4-10.2) mg/dL Alkaline Phosphatase (38-126) U/L Total Protein (6.3-8.2) g/dL Albumin (3.5-5.0) g/dL 08/19/21 Range/Units 11:26 RBC (3.80-5.40) m/uL Hgb (11.4-16.0) gm/dL Hct (34.0-46.0) % PT (9.0-12.0) sec INR (<1.2) Carbon Dioxide (22-30) mmol/L BUN (7-17) mg/dL Creatinine (0.52-1.04) mg/dL Glucose (74-99) mg/dL POC Glucose (mg/dL) 153 H (75-99) mg/dL Calcium (8.4-10.2) mg/dL Alkaline Phosphatase (38-126) U/L Total Protein (6.3-8.2) g/dL Albumin (3.5-5.0) g/dL
--- NOTE | 2021-08-19 13:58 | P.PN ---
Subjective Patient is doing the same compared to yesterday. No acute events overnight. INR still elevated despite holding Coumadin last night. Objective - Vital Signs Vital signs: Vital Signs Temp 96.8 F L 08/19/21 11:58 Pulse 64 08/19/21 11:58 Resp 18 08/19/21 11:58 BP 113/75 08/19/21 11:58 Pulse Ox 92 L 08/19/21 11:58 Intake & Output 08/18/21 08/19/21 08/19/21 18:59 06:59 18:59 Intake Total 420 10 160 Output Total 200 300 Balance 220 -290 160 Weight 135 kg Intake: IV 10 160 Invasive Line 2 10 10 Sodium Chloride 0.9% 1, 150 000 ml @ 50 mls/hr IV . Q[facility]H [facility] Rx#:[id number] Oral 420 Output: Urine 200 300 Other: Voiding Method Indwelling Catheter Indwelling Catheter Indwelling Catheter # Bowel Movements 1 - Exam General: The patient is awake and alert, in no distress Eye: there is normal conjunctiva bilaterally. Neck: The neck is supple, there is no JVD. Cardiovascular: Heart sounds are distant. Normal S1-S2, no S3-S4, no murmurs. Respiratory: Lungs clear to anterior chest auscultation bilaterally Gastrointestinal: Abdomen is obese but soft, nontender Musculoskeletal: There is +1 pedal edema. Neurological:. Speech is normal. Skin: Skin is warm and dry - Labs CBC & Chem 7: 08/18/21 12:05 08/19/21 12:17 Labs: Abnormal Lab Results - Last 24 Hours (Table) 08/18/21 08/18/21 08/19/21 Range/Units 16:53 20:17 06:28 PT (9.0-12.0) sec INR (<1.2) Carbon Dioxide (22-30) mmol/L BUN (7-17) mg/dL Creatinine (0.52-1.04) mg/dL Glucose (74-99) mg/dL POC Glucose (mg/dL) 148 H 153 H 129 H (75-99) mg/dL 08/19/21 08/19/21 08/19/21 Range/Units 11:26 12:17 12:17 PT 57.8 H (9.0-12.0) sec INR 6.0 H* (<1.2) Carbon Dioxide 20 L (22-30) mmol/L BUN 92 H (7-17) mg/dL Creatinine 4.68 H (0.52-1.04) mg/dL Glucose 141 H (74-99) mg/dL POC Glucose (mg/dL) 153 H (75-99) mg/dL Assessment and Plan Assessment: This is a 71-year-old female with a very complex past medical history noted below who presented to the emergency room with progressive weakness and fatigue. Patient was evaluated in the ER and admitted to the hospital for further management of her medical problems noted below. 1. COVID-19 pneumonia: Started on Decadron day #3. Continue vitamin C, vitamin D, and zinc supplement. Seen and evaluated by pulmonary. Appreciate recommendations. 2. Acute kidney injury on chronic kidney disease. Non-oliguric. Probably attributed to cardiorenal syndrome with possible ATN. Patient was seen and evaluated by nephrology. Kidney ultrasound with poor visualization secondary to body habitus. 3. Acute systolic and diastolic heart failure exacerbation. Echocardiogram showed EF of 45-50%. No good visualization of the valves. Lasix on hold right now per nephrology recommendations. EF in 2018 was 35%. 4. History of chronic PE/DVT on anticoagulation with Coumadin. Dose by pharmacy 5. Chronic medical problems: Morbid obesity, physical debility secondary to morbid obesity, hypertension, osteoarthritis Today, I reviewed her medication list and lab work results Patient will be given 2.5 mg of vitamin K orally today for supratherapeutic INR Nephrology following contemplating possible renal replacement therapy Continue supportive care otherwise Repeat lab work in the morning
[2021-08-19] MEDS ORDERED: WARFARIN 0.5 MG TAB PO ONE (14:00)
[2021-08-19] MEDS ORDERED: FUROSEMIDE 10 MG/ML 4 ML VIAL IV STA (15:26)
[2021-08-19 17:32] LABS: Glucose,Whole Blood 162 mg/dL (75-99)
[2021-08-19] MEDS: SODIUM BICARBONATE TAB 650 MG TAB PO SCH (20:31)
[2021-08-19 20:59] LABS: Glucose,Whole Blood 182 mg/dL (75-99)
[2021-08-20 06:10] LABS: Glucose,Whole Blood 144 mg/dL (75-99)
[2021-08-20] MEDS: SODIUM CHLORIDE 0.9% 1,000 ML IV SCH ×2 (06:11→23:09)
[2021-08-20] MEDS: METOPROLOL TARTRATE 25 MG TAB PO SCH ×2 (08:09→21:00)
[2021-08-20] MEDS: SODIUM BICARBONATE TAB 650 MG TAB PO SCH ×2 (08:09→21:00)
[2021-08-20] MEDS: ASCORBIC ACID 500 MG TAB PO SCH (08:09)
[2021-08-20] MEDS: GABAPENTIN 100 MG CAP PO SCH ×2 (08:09→21:00)
[2021-08-20] MEDS: dexAMETHasone 2 MG TAB PO SCH (08:09)
[2021-08-20] MEDS: ZINC SULFATE 220 MG CAP PO SCH (08:09)
[2021-08-20] MEDS: CHOLECALCIFEROL 25 MCG (1000 IU) TABLET PO SCH (08:10)
[2021-08-20 09:27] LABS: Basophils % (A) 0 %; Eosinophils % (A) 0 %; HCT 37.1 % (34.0-46.0); HGB 11.4 gm/dL (11.4-16.0); Hypochromasia Slight; Lymphocytes # (A) 0.4 k/uL (1.0-4.8); Lymphocytes % (A) 4 %; MCH 29.1 pg (25.0-35.0); MCHC 30.8 g/dL (31.0-37.0); MCV 94.5 fL (80.0-100.0); Mean Platelet Volume 7.7; Monocytes # (A) 0.3 k/uL (0-1.0); Monocytes % (A) 3 %; Neutrophils # (A) 9.3 k/uL (1.3-7.7); Neutrophils % (A) 92 %; Platelet Count 306 k/uL (150-450); RBC 3.93 m/uL (3.80-5.40); RDW 14.9 % (11.5-15.5); WBC 10.1 k/uL (3.8-10.6)
[2021-08-20 09:50] LABS: INR 2.4 (<1.2); Prothrombin Time 23.1 sec (9.0-12.0)
[2021-08-20 10:01] LABS: Calcium 8.7 mg/dL (8.4-10.2); Magnesium 1.7 mg/dL (1.6-2.3); Potassium 4.2 mmol/L (3.5-5.1)
[2021-08-20] MEDS ORDERED: INFLUENZA VACC HIGH-DOSE (65+) 240 MCG/0.7 ML SYRINGE IM ONE (11:00)
[2021-08-20 11:59] LABS: Glucose,Whole Blood 123 mg/dL (75-99)
--- NOTE | 2021-08-20 14:09 | PN ---
PROGRESS NOTE Patient is seen for followup for acute kidney injury. Her renal function has improved, with serum creatinine down to 4.35 from 5.12 on initial admission. Previous creatinine has been about 1.5 to 1.8 mg/dL. Patient is currently maintained on saline at about 50 mL/hour. She received a dose of IV Lasix yesterday. Patient is maintained on 2 L nasal cannula. Oxygen saturations are about 96%. She has underlying COVID pneumonia. On examination, blood pressure 119/79, heart rate 92 per minute. Oxygen saturations 96% on 2 L nasal cannula. Examination of lower extremities shows no significant edema. Labs show sodium 141, potassium 4.2, chloride 106. CO2 is 22, BUN 102, serum creatinine 4.35. ASSESSMENT: 1. Acute kidney injury, acute tubular necrosis, currently slowly improving. Renal function continues to improve. Patient is maintained on saline at about 50 mL/hour. 2. COVID pneumonia. 3. Chronic systolic congestive heart failure, ejection fraction 45% to 50%. 4. Acute hypoxic respiratory failure secondary to COVID pneumonia. 5. Metabolic acidosis associated with acute kidney injury. PLAN: Continue with saline. Monitor urine output. Repeat labs in a.m. No indication to start dialysis, as renal function continues to improve, although slowly. Continue to avoid nephrotoxic medications and avoid hypotension. MMODL / IJN: [id number] /
--- NOTE | 2021-08-20 14:27 | P.PN ---
Subjective HISTORY OF PRESENT ILLNESS This is a 71 year old female with past medical history of pulmonary embolism 2008 following DVT in the knee, chronic systolic heart failure with known EF of 30-35%, chronic kidney disease stage IV, morbid obesity, osteoporosis with compression fractures of the lumbar spine. 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 We were consulted for elevated troponins. Troponins were 0.17, 0.15, 0.14. Patient presented to [facility] emergency center 08/17/21 due to fatigue and weakness, nausea and emesis, unable to tolerate any intake along with increased cough and shortness of breath and lethargy. Chest x-ray showed diffuse pneumonia versus pulmonary edema. She was also and she was diagnosed with acute kidney injury with BUN of 77 and creatinine 5.1. Troponin 0.170, 0.150, 0.15 . COVID-19 PCR Positive. INR 3.9 and repeat 5.6. 08/20/21: Patient seen at bedside, no acute distress. She denies any chest pain. Pressure support has slightly improved. Her INR is has improved to 2.4 from 6.0. Patient has been off Coumadin. Labs reviewed, sodium 141, potassium 4.2, BUN 102, serum creatinine 4.35, magnesium 1.7. Echocardiogram reveals EF of 45- 50% with mild concentric left hypertrophy, mild global hypokinesia of the LV, trace mitral regurgitation, trace tricuspid regurgitation. Repeat chest x-ray on 08/19/21 reveals improving patchy bilateral lung infiltrates can be compatible with atypical pneumonia. IV Lasix has been discontinued. Patient may need to consider renal replacement therapy. PHYSICAL EXAMINATION Gen: This is a 71-year-old female. VS: Blood pressure 125/64, heart rate 61 SpO2 96% 2L nasal cannula. Physical examination deferred due to COVID 19 isolation ASSESSMENT Covid 19 pneumonia Nausea and vomiting Elevated troponins secondary to COVID-19 and renal failure, acute coronary syndrome ruled out Acute kidney injury Chronic kidney disease History of pulmonary embolism and DVT Morbid obesity Chronic systolic heart failure Hypertension Hypercoagulopathy secondary to Coumadin and COVID-19 PLAN Continue Lopressor 25 mg twice daily Not starting an ACEI/ARB due to acute kidney injury Updated primary team that we Will give coumadin 1mg tonight Monitor INR daily Continue Covid 19 treatment per pulmonary medicine No further workup from a cardiology perspective, recommend patient follow-up with Dr. Amos in 34 weeks once recovered from covid-19. We will follow the patient as needed. Please reach out with any further pressures or concerns. Nurse practitioner note has been reviewed, I agree with documented findings and plan of care. Patient was seen and examined. Objective - Vital Signs Vital signs: Vital Signs Temp 97.5 F L 08/20/21 08:00 Pulse 61 08/20/21 11:33 Resp 16 08/20/21 11:33 BP 125/64 08/20/21 11:33 Pulse Ox 96 08/20/21 11:33 Intake & Output 08/19/21 08/20/21 08/20/21 18:59 06:59 18:59 Intake Total 278 240 Output Total 200 850 Balance 78 -610 Weight 137 kg Intake: IV 160 Invasive Line 2 10 Sodium Chloride 0.9% 1, 150 000 ml @ 50 mls/hr IV . Q20H [facility] Rx#:[id number] Oral 118 240 Output: Urine 200 850 Other: Voiding Method Indwelling Catheter Indwelling Catheter Indwelling Catheter - Labs CBC & Chem 7: 08/20/21 09:05 08/20/21 09:05 Labs: Abnormal Lab Results - Last 24 Hours (Table) 08/19/21 08/19/21 08/20/21 Range/Units 17:20 20:53 06:07 MCHC (31.0-37.0) g/dL Neutrophils # (1.3-7.7) k/uL Lymphocytes # (1.0-4.8) k/uL PT (9.0-12.0) sec INR (<1.2) BUN (7-17) mg/dL Creatinine (0.52-1.04) mg/dL Glucose (74-99) mg/dL POC Glucose (mg/dL) 162 H 182 H 144 H (75-99) mg/dL 08/20/21 08/20/21 08/20/21 Range/Units 09:05 09:05 09:05 MCHC 30.8 L (31.0-37.0) g/dL Neutrophils # 9.3 H (1.3-7.7) k/uL Lymphocytes # 0.4 L (1.0-4.8) k/uL PT 23.1 H (9.0-12.0) sec INR 2.4 H (<1.2) BUN 102 H* (7-17) mg/dL Creatinine 4.35 H (0.52-1.04) mg/dL Glucose 173 H (74-99) mg/dL POC Glucose (mg/dL) (75-99) mg/dL 08/20/21 Range/Units 11:57 MCHC (31.0-37.0) g/dL Neutrophils # (1.3-7.7) k/uL Lymphocytes # (1.0-4.8) k/uL PT (9.0-12.0) sec INR (<1.2) BUN (7-17) mg/dL Creatinine (0.52-1.04) mg/dL Glucose (74-99) mg/dL POC Glucose (mg/dL) 123 H (75-99) mg/dL
[2021-08-20 16:52] LABS: Glucose,Whole Blood 134 mg/dL (75-99)
--- NOTE | 2021-08-20 17:21 | P.PN ---
Subjective Patient is doing the same compared to yesterday. No acute events overnight. Creatinine slowly trending down Objective - Vital Signs Vital signs: Vital Signs Temp 97.5 F L 08/20/21 08:00 Pulse 61 08/20/21 11:33 Resp 16 08/20/21 11:33 BP 125/64 08/20/21 11:33 Pulse Ox 96 08/20/21 11:33 Intake & Output 08/19/21 08/20/21 08/20/21 18:59 06:59 18:59 Intake Total 278 240 600 Output Total 200 850 Balance 78 -610 600 Weight 137 kg Intake: IV 160 600 Invasive Line 2 10 Sodium Chloride 0.9% 1, 150 600 000 ml @ 50 mls/hr IV . Q20H [facility] Rx#:[id number] Oral 118 240 Output: Urine 200 850 Other: Voiding Method Indwelling Catheter Indwelling Catheter Indwelling Catheter - Exam General: The patient is awake and alert, in no distress Eye: there is normal conjunctiva bilaterally. Neck: The neck is supple, there is no JVD. Cardiovascular: Heart sounds are distant. Normal S1-S2, no S3-S4, no murmurs. Respiratory: Lungs clear to anterior chest auscultation bilaterally Gastrointestinal: Abdomen is obese but soft, nontender Musculoskeletal: There is +1 pedal edema. Neurological:. Speech is normal. Skin: Skin is warm and dry - Labs CBC & Chem 7: 08/20/21 09:05 08/20/21 09:05 Labs: Abnormal Lab Results - Last 24 Hours (Table) 08/19/21 08/19/21 08/20/21 Range/Units 17:20 20:53 06:07 MCHC (31.0-37.0) g/dL Neutrophils # (1.3-7.7) k/uL Lymphocytes # (1.0-4.8) k/uL PT (9.0-12.0) sec INR (<1.2) BUN (7-17) mg/dL Creatinine (0.52-1.04) mg/dL Glucose (74-99) mg/dL POC Glucose (mg/dL) 162 H 182 H 144 H (75-99) mg/dL 08/20/21 08/20/21 08/20/21 Range/Units 09:05 09:05 09:05 MCHC 30.8 L (31.0-37.0) g/dL Neutrophils # 9.3 H (1.3-7.7) k/uL Lymphocytes # 0.4 L (1.0-4.8) k/uL PT 23.1 H (9.0-12.0) sec INR 2.4 H (<1.2) BUN 102 H* (7-17) mg/dL Creatinine 4.35 H (0.52-1.04) mg/dL Glucose 173 H (74-99) mg/dL POC Glucose (mg/dL) (75-99) mg/dL 08/20/21 08/20/21 Range/Units 11:57 16:51 MCHC (31.0-37.0) g/dL Neutrophils # (1.3-7.7) k/uL Lymphocytes # (1.0-4.8) k/uL PT (9.0-12.0) sec INR (<1.2) BUN (7-17) mg/dL Creatinine (0.52-1.04) mg/dL Glucose (74-99) mg/dL POC Glucose (mg/dL) 123 H 134 H (75-99) mg/dL Assessment and Plan Assessment: This is a 71-year-old female with a very complex past medical history noted below who presented to the emergency room with progressive weakness and fatigue. Patient was evaluated in the ER and admitted to the hospital for further management of her medical problems noted below. 1. COVID-19 pneumonia: Started on Decadron day #3. Continue vitamin C, vitamin D, and zinc supplement. Seen and evaluated by pulmonary. Appreciate recommendations. 2. Acute kidney injury on chronic kidney disease. Non-oliguric. Probably attributed to cardiorenal syndrome with possible ATN. Patient was seen and evaluated by nephrology. Kidney ultrasound with poor visualization secondary to body habitus. 3. Acute systolic and diastolic heart failure exacerbation. Echocardiogram showed EF of 45-50%. No good visualization of the valves. Lasix on hold right now per nephrology recommendations. EF in 2018 was 35%. 4. History of chronic PE/DVT on anticoagulation with Coumadin. Dose by pharmacy 5. Chronic medical problems: Morbid obesity, physical debility secondary to morbid obesity, hypertension, osteoarthritis Today, I reviewed her medication list and lab work results On 08/19 patient was given 2.5 mg of vitamin K orally today for supratherapeutic INR Nephrology following closely Continue supportive care otherwise Repeat lab work in the morning
[2021-08-20] MEDS ORDERED: WARFARIN 1 MG TAB PO ONE (18:00)
--- NOTE | 2021-08-20 18:27 | P.PN ---
Subjective Progress Note Date: 08/20/21 Principal diagnosis: Acute hypoxic respiratory failure secondary to COVID-19 pneumonia This is a 71-year-old female patient was been feeling ill with symptoms of fatigue and weakness and lethargy and some nausea and emesis to the point. The patient was unable to tolerate any intake of fluids orally. She was also complaining of increased cough and shortness of breath along with lethargy. It seems that the symptoms have been going on for more than 2 weeks. She presented emergency department and the patient was found to have an acute kidney injury. Creatinine was at 5.1 with a mean of 77. At that point, a chest x-ray was done that showed diffuse bilateral pulmonary infiltrates consistent with pneumonia. Her pulse ox was 92% on room air and currently the patient is on 2 L of oxygen by nasal cannula and her pulse ox is above 90%. She was started on IV fluids and currently she is on normal saline at the rate of 75 mL an hour. 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 She also has CHF and she has an ejection fraction of 30-35% based on the previous echocardiogram. Note that during this current admission, the patient tested positive for COVID 19. No blood work showed a white cell count 9.6 with a hemoglobin of 11. She has a lymphopenia of 0.7, and INR was at 3.0 with a PT of 37, her creatinine is at 5.1 much of 1 and were 0.1. Respectively, serum bicarb was 20 and the sodium level was 136. UA was showing +1 protein and a chest x-ray showing diffuse bilateral pulmonary infiltrates consistent with pneumonia over fluid overload/CHF. Note that the patient also has previous history of DVT and pulmonary embolism and she is morbidly obese. On today's evaluation of 08/19/2021, the patient is feeling well. She has a Alvarado catheter in place. She is producing adequate amount of urine output. The levels are not back yet. She remains on oxygen at 2 L per minute nasal cannula. She is afebrile. She is on Decadron 6 mg by mouth on a daily basis. Her overall urine output has been 500 mL over the past 24 hours. Noted creatinine is on the rise and fell to 5.12 and the ultrasound the kidneys showed no evid ence of any mental hydronephrosis. Based on that, the patient was started on a gentle hydration with normal state rate at the rate of 50 mL an hour. Lasix was discontinued. Patient was reevaluated today on 08/20/2021, seems to be doing better, breathing easier, hardly any cough, no wheezing, no shortness of breath, patient is on room air, and she is presently saturating at 95%. She is hemodynamically stable. Labs were unremarkable including CBC normal, INR is 2.4, 11 lites are normal renal profile showed a BUN of 102 creatinine of 4.35. Improving compared to creatinine 5.12 on 08/17. Objective - Vital Signs Vital signs: Vital Signs Temp 97.5 F L 08/20/21 08:00 Pulse 68 08/20/21 16:00 Resp 16 08/20/21 16:00 BP 146/71 08/20/21 16:00 Pulse Ox 95 08/20/21 16:00 Intake & Output 08/19/21 08/20/21 08/20/21 18:59 06:59 18:59 Intake Total 278 240 600 Output Total 200 850 700 Balance 78 -610 -100 Weight 137 kg Intake: IV 160 600 Invasive Line 2 10 Sodium Chloride 0.9% 1, 150 600 000 ml @ 50 mls/hr IV . Q20H [facility] Rx#:[id number] Oral 118 240 0 Output: Urine 200 850 700 Other: Voiding Method Indwelling Catheter Indwelling Catheter Indwelling Catheter # Bowel Movements 0 - Exam General: Revealed a 71-year-old female on room air, in no distress. Derm: No rashes. Head: atraumatic, normocephalic, symmetric Eyes: EOMI, no lid lag, anicteric sclera, pupils equal round reactive to light ENT: Nose and ears atraumatic, no thrush, no pharyngeal erythema Neck: No thyromegaly, no cervical lymphadenopathy, trachea midline, supple Mouth: no lip lesion, mucus membranes very dry Cardiovascular: S1S2 reg, no murmur, positive posterior tibial pulse bilateral, no edema, capillary refill less than 2 seconds Lungs: Symmetrical chest expansion, crackles at the bases. Abdominal: soft, nontender to palpation, no guarding, no appreciable organomegaly, normal bowel sounds Ext: no gross muscle atrophy, muscle strength 4 out of 5 in all 4 extremities grossly, no contractures, Neuro: Alert and oriented 3 no gross focal deficits. Psych: Normal mood, affect and normal mental status examination. - Labs CBC & Chem 7: 08/20/21 09:05 08/20/21 09:05 Labs: Abnormal Lab Results - Last 24 Hours (Table) 08/19/21 08/20/21 08/20/21 Range/Units 20:53 06:07 09:05 MCHC (31.0-37.0) g/dL Neutrophils # (1.3-7.7) k/uL Lymphocytes # (1.0-4.8) k/uL PT 23.1 H (9.0-12.0) sec INR 2.4 H (<1.2) BUN (7-17) mg/dL Creatinine (0.52-1.04) mg/dL Glucose (74-99) mg/dL POC Glucose (mg/dL) 182 H 144 H (75-99) mg/dL 08/20/21 08/20/21 08/20/21 Range/Units 09:05 09:05 11:57 MCHC 30.8 L (31.0-37.0) g/dL Neutrophils # 9.3 H (1.3-7.7) k/uL Lymphocytes # 0.4 L (1.0-4.8) k/uL PT (9.0-12.0) sec INR (<1.2) BUN 102 H* (7-17) mg/dL Creatinine 4.35 H (0.52-1.04) mg/dL Glucose 173 H (74-99) mg/dL POC Glucose (mg/dL) 123 H (75-99) mg/dL 08/20/21 Range/Units 16:51 MCHC (31.0-37.0) g/dL Neutrophils # (1.3-7.7) k/uL Lymphocytes # (1.0-4.8) k/uL PT (9.0-12.0) sec INR (<1.2) BUN (7-17) mg/dL Creatinine (0.52-1.04) mg/dL Glucose (74-99) mg/dL POC Glucose (mg/dL) 134 H (75-99) mg/dL Assessment and Plan Assessment: Impression: Acute hypoxic respiratory failure, secondary to acute COVID-19 pneumonia Chronic kidney disease stage IIIB. Possibly cardiorenal disease. History of DVT and pulmonary embolism, patient is on Coumadin. Morbid obesity. Acute on chronic Congestive heart failure with LV dysfunction and ejection fraction of 30-35%. History of uterine cancer. Benign essential hypertension. Degenerative joint disease. Recommendation: Continue present treatment plan Titrate oxygen and consider discharge planning in the next 24 hours. Continue Decadron. continue to monitor renal profile. Patient is being followed by nephrology. will clear the patient for possible discharge in the next 24 hours if cleared by other consultants. Time with Patient: Less than 30
[2021-08-20 20:31] LABS: Glucose,Whole Blood 160 mg/dL (75-99)
[2021-08-21 06:19] LABS: Glucose,Whole Blood 123 mg/dL (75-99)
[2021-08-21 07:59] LABS: INR 1.7 (<1.2); Prothrombin Time 17.2 sec (9.0-12.0)
[2021-08-21] MEDS: ASCORBIC ACID 500 MG TAB PO SCH (08:25)
[2021-08-21] MEDS: METOPROLOL TARTRATE 25 MG TAB PO SCH ×2 (08:25→19:52)
[2021-08-21] MEDS: CHOLECALCIFEROL 25 MCG (1000 IU) TABLET PO SCH (08:25)
[2021-08-21] MEDS: dexAMETHasone 2 MG TAB PO SCH (08:25)
[2021-08-21] MEDS: ZINC SULFATE 220 MG CAP PO SCH (08:26)
[2021-08-21] MEDS: GABAPENTIN 100 MG CAP PO SCH ×2 (08:26→19:52)
[2021-08-21] MEDS: SODIUM BICARBONATE TAB 650 MG TAB PO SCH ×2 (08:26→19:52)
[2021-08-21 10:50] LABS: Magnesium 1.7 mg/dL (1.6-2.3)
--- NOTE | 2021-08-21 11:10 | CDI ---
Documentation Clarification Form Date: 08/21/2021 10:46:46 AM From: Patience Mcmillan RN, CCDS Admit Date: 08/17/2021 03:23:00 PM Patient Name: Nicole Pal Visit Number: [id number] Discharge Date: ATTENTION: The Clinical Documentation Specialists (CDI) and [facility] Coding Staff appreciate your assistance in clarifying documentation. Please respond to the clarification below the line at the bottom and electronically sign. The CDI & [facility] Coding staff will review the response and follow-up if needed. Please note: Queries are made part of the Legal Health Record. If you have any questions, please contact the author of this message via ITS. Dr. Kumar Grimm Conflicting documentation has been found in the medical record. As attending physician, please provide clarification. 08/18 Cardiology consult and subsequent progress notes: chronic kidney disease stage IV 08/18 Nephrology consult and subsequent progress notes: Patient has chronic kidney disease IIIIb with baseline creatinine near 1.5-1.8 secondary to nephrosclerosis History/Risk Factors: CKD, Covid-19, Hypertension Pulmonary Embolus, MTHFR, Clinical Indicators: 71-year-old female presented with generalized weakness. She tested positive for covid-19. Creatinine on admission was 5.12. GFR 8 08/18 BUN 82 CR 4.89 GFR 8 08/19 BUN 92 CR 4.68 GFR 9 08/20 BUN 102 CR 4.35 GFR 9 Treatment: 500 ml .9 NS bolus ECHO Monitor BUN CR, lytes per orders Strict I's and O's Please clarify which diagnosis is most appropriate: [ ] CKD Stage IIIb [ ] CKD Stage IV [ ] Other (please specify) [ ] Unable to determine (Template Last Revised: December 2020) MTDD
[2021-08-21 12:07] LABS: Glucose,Whole Blood 120 mg/dL (75-99)
--- NOTE | 2021-08-21 14:06 | PN ---
PROGRESS NOTE The patient is seen for followup for acute kidney injury. Her renal function continues to improve, with the serum creatinine going down from 5.1 on initial admission to 3.64. The patient is maintained on normal saline at 50 mL an hour. She is positive for Covid. Her respiratory status is stable. She is currently maintained on 2 L nasal cannula and down to room air. PHYSICAL EXAMINATION: On examination today, blood pressure 134/68, heart rate 71 per minute. She is afebrile. Examination of lower extremities shows trace edema bilaterally. RESPIRATORY COORDINATOR exam grossly intact. Lungs and heart are not heard. LAB: Show sodium 141, potassium 5.0, chloride 109, CO2 is 19, BUN 105, serum creatinine 3.6. ASSESSMENT: 1. Acute kidney injury mostly acute tubular necrosis, currently improving. BUN is disproportionately elevated secondary to steroids. Continue with normal saline for now. 2. Covid pneumonia. 3. Chronic systolic congestive heart failure, ejection fraction 45-50%. 4. Acute hypoxic respiratory failure secondary to COVID pneumonia. 5. Metabolic acidosis associated with acute kidney injury. Maintained on oral sodium bicarb. PLAN: Continue with saline. Continue with sodium bicarb. Repeat labs in a.m. Again the BUN is disproportionately elevated secondary to steroids. Encourage increased oral intake. Patient can be discharged by tomorrow with plans to follow up as outpatient in about one week's time. GEEL / CHELAN: [id number] /
--- NOTE | 2021-08-21 16:31 | P.PN ---
Subjective Progress Note Date: 08/21/21 Principal diagnosis: Dyspnea, hypoxia, COVID-19 On 08/21/2001 patient seen in follow-up on selective care unit, she is reading comfortably, she is up in the chair, room air pulse ox is 98%. She's had no fever or chills, her pulmonary perspective she's been stable, she does get short of breath with exertion, recovers with rest, occasional cough, no phlegm production, no chest discomfort, no fever or chills, no acute events overnight. She remains on Decadron 6 mg daily, she is on IV fluids 0.9 normal saline at a rate of 50 ML per hour, she is on Coumadin per pharmacy to dose. Patient also continues on oral sodium bicarb for metabolic acidosis related to acute kidney injury. Nephrology is following. Patient has had no nausea vomiting or diarrhea. Today's labs have been reviewed, INR is 1.7, she'll receive 1 mg of Coumadin tonight, sodium is 141, potassium is 5.0, chloride is 109, CO2 is 19, B1 is 105, and creatinine is down to 3.64, proBNP is 12,900 Objective - Vital Signs Vital signs: Vital Signs Temp 97.7 F 08/21/21 08:00 Pulse 68 08/21/21 12:00 Resp 16 08/21/21 12:00 BP 125/73 08/21/21 12:00 Pulse Ox 97 08/21/21 12:00 Intake & Output 08/20/21 08/21/21 08/21/21 18:59 06:59 18:59 Intake Total 600 400 120 Output Total 700 1000 Balance -100 -600 120 Weight 135 kg Intake: IV 600 Sodium Chloride 0.9% 1, 600 000 ml @ 50 mls/hr IV . Q20H [facility] Rx#:[id number] Intake, IV Titration 200 Amount Sodium Chloride 0.9% 1, 200 000 ml @ 50 mls/hr IV . Q20H [facility] Rx#:[id number] Oral 0 200 120 Output: Urine 700 1000 Other: Voiding Method Indwelling Catheter Indwelling Catheter Indwelling Catheter # Voids 0 # Bowel Movements 0 0 - Exam GENERAL EXAM: Alert, very pleasant, 71-year-old morbidly obese white female, on room air with pulse ox of 97% comfortable in no apparent distress. HEAD: Normocephalic/atraumatic. EYES: Normal reaction of pupils, equal size. Conjunctiva pink, sclera white. NOSE: Clear with pink turbinates. THROAT: No erythema or exudates. NECK: No masses, no JVD, no thyroid enlargement, no adenopathy. CHEST: No chest wall deformity. Symmetrical expansion. LUNGS: Equal air entry with no crackles, wheeze, rhonchi or dullness. CVS: Regular rate and rhythm, normal S1 and S2, no gallops, no murmurs, no rubs ABDOMEN: Soft, nontender. No hepatosplenomegaly, normal bowel sounds, no guarding or rigidity. EXTREMITIES: No clubbing, no edema, no cyanosis, 2+ pulses and upper and lower extremities. MUSCULOSKELETAL: Muscle strength and tone normal. SPINE: No scoliosis or deformity SKIN: No rashes CENTRAL NERVOUS SYSTEM: Alert and oriented -3. No focal deficits, tone is normal in all 4 extremities. PSYCHIATRIC: Alert and oriented -3. Appropriate affect. Intact judgment and insight. - Labs CBC & Chem 7: 08/20/21 09:05 08/21/21 10:04 Labs: Abnormal Lab Results - Last 24 Hours (Table) 08/20/21 08/20/21 08/21/21 Range/Units 16:51 20:29 06:18 PT (9.0-12.0) sec INR (<1.2) Chloride (98-107) mmol/L Carbon Dioxide (22-30) mmol/L BUN (7-17) mg/dL Creatinine (0.52-1.04) mg/dL Glucose (74-99) mg/dL POC Glucose (mg/dL) 134 H 160 H 123 H (75-99) mg/dL 08/21/21 08/21/21 08/21/21 Range/Units 06:25 10:04 12:06 PT 17.2 H (9.0-12.0) sec INR 1.7 H (<1.2) Chloride 109 H (98-107) mmol/L Carbon Dioxide 19 L (22-30) mmol/L BUN 105 H* (7-17) mg/dL Creatinine 3.64 H (0.52-1.04) mg/dL Glucose 122 H (74-99) mg/dL POC Glucose (mg/dL) 120 H (75-99) mg/dL Assessment and Plan Plan: Assessment: #1. Acute hypoxic respiratory failure secondary to acute COVID-19 pneumonia, patient was outside the window for Remdesivir, patient is not vaccinated for COVID-19. Oxygenation so far remained stable and patient today is on room air with a pulse ox of 97% #2. Nausea and vomiting and intravascular volume depletion with secondary to COVID-19 #3. Chronic stage IIIB kidney disease with acute kidney injury related to dehydration and intravascular volume depletion. Patient remains on IV hydration with 0.9 normal saline at a rate of 50 ML per hour in addition to oral sodium bicarbonate tablets #4. Metabolic acidosis, related to acute kidney injury and dehydration #5. Previous history of DVT and pulmonary embolism, on Coumadin #6. Morbid obesity with BMI of 54.4 kg/m #7. Sedentary lifestyle #8. History of systolic CHF with an ejection fraction of 30-35% #9. History of hypertension #10. History of uterine cancer #11. Osteoarthritis #12. Supratherapeutic INR, currently down to 1.7 Plan: Patient denies any worsening dyspnea She is currently on room air She is breathing comfortably She's had no acute events overnight No fever or chills, vital signs have been stable Continue with Decadron Today's INR has been noted, patient will receive 1 mg of Coumadin tonight Increase activity as tolerated Today's labs have been noted, renal profile is improving No nausea vomiting or diarrhea Continues on gentle IV hydration Patient can be considered for discharge home from pulmonary perspective today or tomorrow, if cleared by medicine She can complete a total of 10 day course of Decadron She'll continue on Coumadin, and COVID-19 vitamins Outpatient follow-up with Dr. Bauman in the office in 2 weeks I performed a history & physical examination of the patient and discussed their management with my nurse practitioner, Zoey Huber. I reviewed the nurse practitioner's note and agree with the documented findings and plan of care. Lung sounds are positive for diminished breath sounds at the bases throughout the lung jeffrey. The findings and the impression was discussed with the patient. I attest to the documentation by the nurse practitioner. Time with Patient: Less than 30
[2021-08-21 17:32] LABS: Glucose,Whole Blood 126 mg/dL (75-99)
[2021-08-21] MEDS ORDERED: WARFARIN 1 MG TAB PO ONE (18:00)
--- NOTE | 2021-08-21 18:47 | P.PN ---
Subjective Patient is doing well today. She was seen and evaluated by me this morning. Creatinine is trending down that BUN is increasing. Objective - Vital Signs Vital signs: Vital Signs Temp 97.7 F 08/21/21 08:00 Pulse 59 L 08/21/21 16:00 Resp 16 08/21/21 16:00 BP 122/89 08/21/21 16:00 Pulse Ox 97 08/21/21 12:00 Intake & Output 08/20/21 08/21/21 08/21/21 18:59 06:59 18:59 Intake Total 600 400 360 Output Total 700 1000 1200 Balance -100 -600 -840 Weight 135 kg Intake: IV 600 Sodium Chloride 0.9% 1, 600 000 ml @ 50 mls/hr IV . Q20H [facility] Rx#:[id number] Intake, IV Titration 200 Amount Sodium Chloride 0.9% 1, 200 000 ml @ 50 mls/hr IV . Q20H [facility] Rx#:[id number] Oral 0 200 360 Output: Urine 700 1000 1200 Other: Voiding Method Indwelling Catheter Indwelling Catheter Indwelling Catheter # Voids 0 # Bowel Movements 0 0 - Exam General: The patient is awake and alert, in no distress Eye: there is normal conjunctiva bilaterally. Neck: The neck is supple, there is no JVD. Cardiovascular: Heart sounds are distant. Normal S1-S2, no S3-S4, no murmurs. Respiratory: Lungs clear to anterior chest auscultation bilaterally Gastrointestinal: Abdomen is obese but soft, nontender Musculoskeletal: There is +1 pedal edema. Neurological:. Speech is normal. Skin: Skin is warm and dry - Labs CBC & Chem 7: 08/20/21 09:05 08/21/21 10:04 Labs: Abnormal Lab Results - Last 24 Hours (Table) 08/20/21 08/21/21 08/21/21 Range/Units 20:29 06:18 06:25 PT 17.2 H (9.0-12.0) sec INR 1.7 H (<1.2) Chloride (98-107) mmol/L Carbon Dioxide (22-30) mmol/L BUN (7-17) mg/dL Creatinine (0.52-1.04) mg/dL Glucose (74-99) mg/dL POC Glucose (mg/dL) 160 H 123 H (75-99) mg/dL 08/21/21 08/21/21 08/21/21 Range/Units 10:04 12:06 17:30 PT (9.0-12.0) sec INR (<1.2) Chloride 109 H (98-107) mmol/L Carbon Dioxide 19 L (22-30) mmol/L BUN 105 H* (7-17) mg/dL Creatinine 3.64 H (0.52-1.04) mg/dL Glucose 122 H (74-99) mg/dL POC Glucose (mg/dL) 120 H 126 H (75-99) mg/dL Assessment and Plan Assessment: This is a 71-year-old female with a very complex past medical history noted below who presented to the emergency room with progressive weakness and fatigue. Patient was evaluated in the ER and admitted to the hospital for further management of her medical problems noted below. 1. COVID-19 pneumonia: Started on Decadron day #4. Continue vitamin C, vitamin D, and zinc supplement. Seen and evaluated by pulmonary. Appreciate recommendations. 2. Acute kidney injury on chronic kidney disease. Non-oliguric. Probably attributed to cardiorenal syndrome with possible ATN. Patient was seen and evaluated by nephrology. Kidney ultrasound with poor visualization secondary to body habitus. 3. Acute systolic and diastolic heart failure exacerbation. Echocardiogram showed EF of 45-50%. No good visualization of the valves. Lasix on hold right now per nephrology recommendations. EF in 2018 was 35%. 4. History of chronic PE/DVT on anticoagulation with Coumadin. Dose by pharmacy 5. Chronic medical problems: Morbid obesity, physical debility secondary to morbid obesity, hypertension, osteoarthritis Today, I reviewed her medication list and lab work results On 08/19 patient was given 2.5 mg of vitamin K orall for supratherapeutic INR Nephrology following closely Continue supportive care otherwise Repeat lab work in the morning
[2021-08-21] MEDS: SODIUM CHLORIDE 0.9% 1,000 ML IV SCH (19:52)
[2021-08-21 20:26] LABS: Glucose,Whole Blood 165 mg/dL (75-99)
[2021-08-22 06:04] LABS: Glucose,Whole Blood 128 mg/dL (75-99)
[2021-08-22 07:54] LABS: INR 1.6 (<1.2); Prothrombin Time 16.4 sec (9.0-12.0)
[2021-08-22] MEDS: dexAMETHasone 2 MG TAB PO SCH (08:53)
[2021-08-22] MEDS: ASCORBIC ACID 500 MG TAB PO SCH ×2 (08:53→08:54)
[2021-08-22] MEDS: ZINC SULFATE 220 MG CAP PO SCH (08:53)
[2021-08-22] MEDS: METOPROLOL TARTRATE 25 MG TAB PO SCH ×2 (08:53→19:43)
[2021-08-22] MEDS: SODIUM BICARBONATE TAB 650 MG TAB PO SCH ×2 (08:53→19:43)
[2021-08-22] MEDS: GABAPENTIN 100 MG CAP PO SCH ×2 (08:54→19:43)
[2021-08-22] MEDS: CHOLECALCIFEROL 25 MCG (1000 IU) TABLET PO SCH (08:54)
[2021-08-22 10:16] LABS: Potassium 4.6 mmol/L (3.5-5.1)
[2021-08-22 11:43] LABS: Glucose,Whole Blood 104 mg/dL (75-99)
--- NOTE | 2021-08-22 12:12 | P.PN ---
Subjective Patient is doing fairly well today. No acute events overnight. Objective - Vital Signs Vital signs: Vital Signs Temp 97.2 F L 08/22/21 08:00 Pulse 62 08/22/21 08:00 Resp 16 08/22/21 08:00 BP 142/90 08/22/21 08:00 Pulse Ox 96 08/22/21 08:00 Intake & Output 08/21/21 08/22/21 08/22/21 18:59 06:59 18:59 Intake Total 540 118 Output Total 1200 700 750 Balance -660 700 -632 Weight 138 kg Intake: Oral 540 118 Output: Urine 1200 700 750 Straight 700 Other: Voiding Method Indwelling Catheter Indwelling Catheter Indwelling Catheter # Voids 0 # Bowel Movements 0 - Exam General: The patient is awake and alert, in no distress Eye: there is normal conjunctiva bilaterally. Neck: The neck is supple, there is no JVD. Cardiovascular: Heart sounds are distant. Normal S1-S2, no S3-S4, no murmurs. Respiratory: Lungs clear to anterior chest auscultation bilaterally Gastrointestinal: Abdomen is obese but soft, nontender Musculoskeletal: There is +1 pedal edema. Neurological:. Speech is normal. Skin: Skin is warm and dry - Labs CBC & Chem 7: 08/20/21 09:05 08/22/21 06:55 Labs: Abnormal Lab Results - Last 24 Hours (Table) 08/21/21 08/21/21 08/22/21 Range/Units 17:30 20:21 06:03 PT (9.0-12.0) sec INR (<1.2) Chloride (98-107) mmol/L Carbon Dioxide (22-30) mmol/L BUN (7-17) mg/dL Creatinine (0.52-1.04) mg/dL Glucose (74-99) mg/dL POC Glucose (mg/dL) 126 H 165 H 128 H (75-99) mg/dL 08/22/21 08/22/21 08/22/21 Range/Units 06:55 06:55 11:38 PT 16.4 H (9.0-12.0) sec INR 1.6 H (<1.2) Chloride 111 H (98-107) mmol/L Carbon Dioxide 21 L (22-30) mmol/L BUN 104 H* (7-17) mg/dL Creatinine 3.18 H (0.52-1.04) mg/dL Glucose 118 H (74-99) mg/dL POC Glucose (mg/dL) 104 H (75-99) mg/dL Assessment and Plan Assessment: This is a 71-year-old female with a very complex past medical history noted below who presented to the emergency room with progressive weakness and fatigue. Patient was evaluated in the ER and admitted to the hospital for further management of her medical problems noted below. 1. COVID-19 pneumonia: Started on Decadron day #5. Continue vitamin C, vitamin D, and zinc supplement. Seen and evaluated by pulmonary. Appreciate recommendations. 2. Acute kidney injury on chronic kidney disease. Non-oliguric. Probably attributed to cardiorenal syndrome with possible ATN. Patient was seen and evaluated by nephrology. Kidney ultrasound with poor visualization secondary to body habitus. 3. Acute systolic and diastolic heart failure exacerbation. Echocardiogram showed EF of 45-50%. No good visualization of the valves. Lasix on hold right now per nephrology recommendations. EF in 2018 was 35%. 4. History of chronic PE/DVT on anticoagulation with Coumadin. Dose by pharmacy 5. Chronic medical problems: Morbid obesity, physical debility secondary to morbid obesity, hypertension, osteoarthritis Today, I reviewed her medication list and lab work results On 08/19 patient was given 2.5 mg of vitamin K orall for supratherapeutic INR Coumadin dose managed by pharmacy Nephrology following closely Continue supportive care otherwise Repeat lab work in the morning Plan for discharge home tomorrow
--- NOTE | 2021-08-22 15:25 | PN ---
PROGRESS NOTE Patient is seen for followup for acute kidney injury. Her renal function continues to improve. BUN remains elevated disproportionately, mostly from steroids. Overall, patient states she is feeling well. She has had good urine output. She has had an O2 saturation of about 96% to 94% on room air. On examination today, blood pressure 142/90, heart rate 52 per minute. Patient is afebrile. No evidence of edema in lower extremities. DEPUTY SHERIFF LIEUTENANT exam is grossly intact. Lungs and heart are not examined. Labs show sodium 143, potassium 4.6, chloride 111. CO2 is 21, BUN 104, creatinine 3.1. ASSESSMENT: 1. Acute kidney injury, acute tubular necrosis and prerenal, currently improving significantly. Creatinine is down to 3.1 from initial reading of about 5 on initial admission. No prior labs available for comparison. Patient is maintained on saline at about 50 mL/hour. She could be discharged from nephrology standpoint and follow up as outpatient in one week's time with repeat labs to be done in one week. 2. COVID-19 PCR positive with no significant respiratory symptoms currently. 3. Metabolic acidosis, maintained on oral sodium bicarb. PLAN: Patient can be discharged from nephrology standpoint. Repeat labs in a.m. if she stays overnight. Can discontinue IV fluids by tomorrow. MMODL / IJN: [id number] /
[2021-08-22 17:02] LABS: Glucose,Whole Blood 120 mg/dL (75-99)
[2021-08-22] MEDS ORDERED: WARFARIN 1.5 MG TAB PO ONE (18:00)
[2021-08-22] MEDS: SODIUM CHLORIDE 0.9% 1,000 ML IV SCH (19:26)
[2021-08-22 20:02] LABS: Glucose,Whole Blood 170 mg/dL (75-99)
[2021-08-23 06:22] LABS: Glucose,Whole Blood 116 mg/dL (75-99)
[2021-08-23 08:46] VITALS: BMI 55.6
[2021-08-23] MEDS: METOPROLOL TARTRATE 25 MG TAB PO SCH (08:54)
[2021-08-23] MEDS: CHOLECALCIFEROL 25 MCG (1000 IU) TABLET PO SCH (08:54)
[2021-08-23] MEDS: ZINC SULFATE 220 MG CAP PO SCH (08:55)
[2021-08-23] MEDS: SODIUM BICARBONATE TAB 650 MG TAB PO SCH (08:55)
[2021-08-23] MEDS: dexAMETHasone 2 MG TAB PO SCH (08:55)
[2021-08-23] MEDS: GABAPENTIN 100 MG CAP PO SCH (08:55)
[2021-08-23] MEDS: ASCORBIC ACID 500 MG TAB PO SCH (08:55)
[2021-08-23 09:03] VITALS: RESP 16; TEMP 97.6
[2021-08-23 11:28] LABS: Calcium 9.2 mg/dL (8.4-10.2)
[2021-08-23 11:36] LABS: Glucose,Whole Blood 97 mg/dL (75-99)
[2021-08-23 11:55] LABS: Potassium 4.9 mmol/L (3.5-5.1)
[2021-08-23 12:29] VITALS: BP 159/87; PULSE 65
[2021-08-23 13:37] LABS: INR 1.7 (<1.2); Prothrombin Time 17.2 sec (9.0-12.0)
--- NOTE | 2021-08-23 14:33 | P.DS ---
Providers Date of admission: 08/17/21 15:23 Expected date of discharge: 08/23/21 Attending physician: Josh Madden MD Consults: 08/17/21 15:24 Consult Physician Routine Consulting Provider: Genevieve Saldana Consult Reason/Comments: CHF, trop elevated Do you want consulting provider notified?: Yes Consult Physician Routine Consulting Provider: Bernarda Vera Consult Reason/Comments: KATIA Do you want consulting provider notified?: Yes 08/17/21 15:25 Consult Physician Routine Consulting Provider: Janet Bauman Consult Reason/Comments: COVID Do you want consulting provider notified?: Yes Primary care physician: [facility] Course: This is a 71-year-old female with a very complex past medical history noted below who presented to the emergency room with progressive weakness and fatigue. Patient was evaluated in the ER and admitted to the hospital for further management of her medical problems noted below. 1. COVID-19 pneumonia: Started on Decadron day #6. Continue vitamin C, vitamin D, and zinc supplement. Seen and evaluated by pulmonary. Appreciate recommendations. 2. Acute kidney injury on chronic kidney disease. Non-oliguric. Probably att ributed to cardiorenal syndrome with possible ATN. Patient was seen and evaluated by nephrology. Kidney ultrasound with poor visualization secondary to body habitus. 3. Acute systolic and diastolic heart failure exacerbation. Echocardiogram showed EF of 45-50%. No good visualization of the valves. Lasix on hold right now per nephrology recommendations. EF in 2018 was 35%. 4. History of chronic PE/DVT on anticoagulation with Coumadin. Dose by pharmacy 5. Chronic medical problems: Morbid obesity, physical debility secondary to morbid obesity, hypertension, osteoarthritis Patient overall condition improved throughout her hospital stay. Patient was seen and evaluated by PT/OT. Advise was to be discharged to [facility] facility but patient's family member would like to take her home and take care of her at home. Patient is medically stable for discharge. She will follow-up with her PCP and nephrology as directed. She will finish short course of steroids with Decadron. Physical exam: General: The patient is awake and alert, in no distress Eye: there is normal conjunctiva bilaterally. Neck: The neck is supple, there is no JVD. Cardiovascular: Normal S1-S2, no S3-S4, no murmurs. Respiratory: Lungs clear to auscultation bilaterally Gastrointestinal: Abdomen is soft, nontender Musculoskeletal: There is no pedal edema. Neurological:. Speech is normal. Skin: Skin is warm and dry Patient Condition at Discharge: Serious Plan - Discharge Summary Discharge Rx Participant: No New Discharge Prescriptions: New Zinc Sulfate [Orazinc] 220 mg PO DAILY #14 cap Sodium Bicarbonate Tab 650 mg PO BID #14 tab Dexamethasone [Decadron] 6 mg PO DAILY #3 tablet Ascorbic Acid [Vitamin C] 1,000 mg PO DAILY #14 tab Continue traMADol HCL [Tramadol HCl] 50 - 100 mg PO TID PRN PRN Reason: Pain Allopurinol 200 mg PO DAILY Warfarin [Coumadin] 2.5 mg PO MOTUTHFRSA@1800 Cholecalciferol [Vitamin D3 (25 Mcg = 1000 Iu)] 1,000 unit PO DAILY Metoprolol Tartrate 25 mg PO BID #60 tab Gabapentin [Neurontin] 100 mg PO BID Ferrous Sulfa 324mg 324 mg PO Q48H Folic Acid 1 mg PO DAILY Discharge Medication List Allopurinol 200 mg PO DAILY 07/21/14 [History] Warfarin [Coumadin] 2.5 mg PO MOTUTHFRSA@1800 07/21/14 [History] traMADol HCL [Tramadol HCl] 50 - 100 mg PO TID PRN 07/21/14 [History] Cholecalciferol [Vitamin D3 (25 Mcg = 1000 Iu)] 1,000 unit PO DAILY 01/29/18 [History] Metoprolol Tartrate 25 mg PO BID #60 tab 02/04/18 [Rx] Gabapentin [Neurontin] 100 mg PO BID 07/10/18 [History] Ferrous Sulfa 324mg 324 mg PO Q48H 08/17/21 [History] Folic Acid 1 mg PO DAILY 08/17/21 [History] Ascorbic Acid [Vitamin C] 1,000 mg PO DAILY #14 tab 08/23/21 [Rx] Dexamethasone [Decadron] 6 mg PO DAILY #3 tablet 08/23/21 [Rx] Sodium Bicarbonate Tab 650 mg PO BID #14 tab 08/23/21 [Rx] Zinc Sulfate [Orazinc] 220 mg PO DAILY #14 cap 08/23/21 [Rx] Follow up Appointment(s)/Referral(s): [facility] [NON-STAFF] - [facility], [NON-STAFF] - Pedro Dorman DO [STAFF PHYSICIAN] - 1 Week Frieda Dominguez MD [Primary Care Provider] - 1-2 days Activity/Diet/Wound Care/Special Instructions: Family is agreeable to cost of Wheel Chair van at d/c. Please call [facility] [phone] to schedule this. Wheelchair and Commode with be delivered to home, today by [facility]. Discharge Disposition: HOME WITH HOME HEALTH SERVICES
--- NOTE | 2021-08-23 17:45 | PN ---
PROGRESS NOTE Patient is seen for followup for acute kidney injury. Her renal function continues to improve, with creatinine down to 2.48 now. Patient has been maintained on IV fluids. On examination today, blood pressure was 159/87, heart rate 65 per minute. Patient is afebrile. No lower extremity edema noted. She is resting comfortably. [employer] exam grossly intact. Heart and lungs are not examined due to COVID. Labs show sodium 143, potassium 4.9, BUN 100, serum creatinine 2.48. ASSESSMENT: 1. Acute kidney injury, prerenal; currently renal function significantly improved with IV hydration. Creatinine down to 2.4 from 5.1 on initial admission. No previous labs available for comparison. 2. COVID-19 positive PCR. No significant respiratory symptoms. 3. Metabolic acidosis, maintained on oral sodium bicarb, which we can discontinue down the road as renal function improves. PLAN: Patient can be discharged from nephrology standpoint. Repeat labs as outpatient. Follow up as outpatient in about one week's time. The BUN is disproportionately elevated secondary to steroids. This will be monitored as outpatient. MMODL / IJN: [id number] /
[2021-08-23] MEDS ORDERED: WARFARIN 2 MG TAB PO ONE (18:00)
== END 2021-08-23 15:50 | disposition home health service (06) | DRG 177 ==
LOC: EC 13:25 → 3SCARD 15:23
PROVIDERS: ADMIT Internal Medicine; ATTEND Internal Medicine
DX: U07.1 COVID-19 (principal); J12.82 Pneumonia due to coronavirus disease 2019; I50.43 Acute on chronic combined systolic (congestive) and diastolic (congestive) heart failure; N17.0 Acute kidney failure with tubular necrosis; J96.01 Acute respiratory failure with hypoxia; E87.2 Acidosis; Z68.43 Body mass index [BMI] 50.0-59.9, adult; I13.0 Hypertensive heart and chronic kidney disease with heart failure and stage 1 through stage 4 chronic kidney disease, or unspecified chronic kidney disease; E72.12 Methylenetetrahydrofolate reductase deficiency; T45.515A Adverse effect of anticoagulants, initial encounter; F32.9 Major depressive disorder, single episode, unspecified; T38.0X5A Adverse effect of glucocorticoids and synthetic analogues, initial encounter; E86.9 Volume depletion, unspecified; D64.9 Anemia, unspecified; E66.01 Morbid (severe) obesity due to excess calories; M10.9 Gout, unspecified; N18.32 Chronic kidney disease, stage 3b; R53.81 Other malaise; M19.90 Unspecified osteoarthritis, unspecified site; E86.0 Dehydration; I48.91 Unspecified atrial fibrillation; Z86.718 Personal history of other venous thrombosis and embolism; Z86.711 Personal history of pulmonary embolism; Z79.01 Long term (current) use of anticoagulants; Z79.899 Other long term (current) drug therapy; Z72.3 Lack of physical exercise; Z82.49 Family history of ischemic heart disease and other diseases of the circulatory system; Z85.42 Personal history of malignant neoplasm of other parts of uterus; Z90.710 Acquired absence of both cervix and uterus; Z98.890 Other specified postprocedural states; Z88.6 Allergy status to analgesic agent; Z88.5 Allergy status to narcotic agent
CPT/HCPCS: 36415; 71045; 71046; 76770; 80048; 80053; 81001; 83735; 83880; 84484; 85025; 85027; 85610; 85730; 87635; 93005; 93306; 94760; 96361; 96374; 99285

== ENCOUNTER 2021-10-10 19:54 | Inpatient (IN) | payer MEDICARE, OTHER ==
[2021-10-10 21:20] LABS: Anisocytosis Slight; Basophils % (A) 0 %; Eosinophils # (A) 0.1 k/uL (0-0.7); Eosinophils % (A) 1 %; HCT 34.1 % (34.0-46.0); HGB 10.2 gm/dL (11.4-16.0); Hypochromasia Marked; Lymphocytes # (A) 1.4 k/uL (1.0-4.8); Lymphocytes % (A) 12 %; MCH 30.1 pg (25.0-35.0); MCHC 30.1 g/dL (31.0-37.0); MCV 100.2 fL (80.0-100.0); Macrocytosis Slight; Mean Platelet Volume 8.4; Monocytes # (A) 0.5 k/uL (0-1.0); Monocytes % (A) 4 %; Neutrophils # (A) 8.8 k/uL (1.3-7.7); Neutrophils % (A) 81 %; Platelet Count 232 k/uL (150-450); RDW 16.6 % (11.5-15.5); WBC 10.9 k/uL (3.8-10.6)
[2021-10-10 21:29] LABS: Albumin 3.4 g/dL (3.5-5.0); Calcium 9.3 mg/dL (8.4-10.2); Magnesium 1.8 mg/dL (1.6-2.3); Potassium 4.3 mmol/L (3.5-5.1); Total Bilirubin 0.7 mg/dL (0.2-1.3); Total Protein 6.4 g/dL (6.3-8.2)
[2021-10-10 21:34] LABS: INR 2.1 (<1.2); Partial Thromboplastin Time 31.8 sec (22.0-30.0); Prothrombin Time 20.7 sec (9.0-12.0)
--- NOTE | 2021-10-10 21:43 | ED ---
General Adult HPI - General Chief complaint: Shortness of Breath Stated complaint: SOB Time Seen by Provider: 10/10/21 20:13 Source: patient, RN notes reviewed, old records reviewed Mode of arrival: EMS - History of Present Illness Initial comments: Patient is a 71-year-old female with past medical history remarkable for recently diagnosed CK D, A. fib on Coumadin, pulmonary embolisms, DVT, hypertension, and CHF who presents to the emergency department complaining of progressive worsening shortness of breath over the last few weeks. She is also endorsing worsening bilateral lower extremity edema. She denies any chest pain, abdominal pain, nausea, vomiting. She is not on flexion at home and is saturating approximately 92% on room air. Denies any headache, weakness, n umbness. Patient did receive a venous duplex to evaluate for possible DVT today, however she does not know the results. She has been compliant with her anticoagulation. She was recently diagnosed as CHF however was not discharged home on water pills as she had recently diagnosed CK D as well. She was admitted for an extended period of time in August for COVID-19 infection. She is not vaccinated for COVID-19. She has no other acute complaints at this time. Presents over concern for progressively worsening shortness of breath. Versus slightly worsening orthopnea, exertional shortness breath is improved when sitting up. Denies PND. Endorses lower extremity edema as well as exertional dyspnea. States that her INR last week was properly therapeutic. - Related Data Home Medications Medication Instructions Recorded Confirmed Allopurinol 200 mg PO DAILY 07/21/14 08/17/21 Warfarin [Coumadin] 2.5 mg PO MOTUTHFRSA@1800 07/21/14 08/17/21 traMADol HCL [Tramadol HCl] 50 - 100 mg PO TID PRN 07/21/14 08/17/21 Cholecalciferol [Vitamin D3 (25 1,000 unit PO DAILY 01/29/18 08/17/21 Mcg = 1000 Iu)] Gabapentin [Neurontin] 100 mg PO BID 07/10/18 08/17/21 Ferrous Sulfa 324mg 324 mg PO Q48H 08/17/21 08/17/21 Folic Acid 1 mg PO DAILY 08/17/21 08/17/21 Previous Rx's Medication Instructions Recorded Metoprolol Tartrate 25 mg PO BID #60 tab 02/04/18 Ascorbic Acid [Vitamin C] 1,000 mg PO DAILY #14 tab 08/23/21 Dexamethasone [Decadron] 6 mg PO DAILY #3 tablet 08/23/21 Sodium Bicarbonate Tab 650 mg PO BID #14 tab 08/23/21 Zinc Sulfate [Orazinc] 220 mg PO DAILY #14 cap 08/23/21 Allergies Allergy/AdvReac Type Severity Reaction Status Date / Time aspirin Allergy Rash/Hives Verified 08/17/21 14:45 codeine Allergy Itching Verified 08/17/21 14:45 Review of Systems ROS Statement: Those systems with pertinent positive or pertinent negative responses have been documented in the HPI. Review of Systems: CONST: Denies fever EYES: Denies blurry vision ENT: Denies nasal congestion C/V: Denies Chest pain RESP: Endorses shortness of breath GI: Denies abdominal pain : Denies dysuria SKIN: Denies rash. MSK: Denies joint pain. NEURO: Denies headache ROS Other: All systems not noted in ROS Statement are negative. Past Medical History Past Medical History: Blood Disorder, Cancer, Deep Vein Thrombosis (DVT), Hypertension, Osteoarthritis (OA), Pulmonary Embolus (PE) Additional Past Medical History / Comment(s): mthfr, uterine cancer(sx only), gout, anemia. uses 4 prong cane OR WALKER when up. BACK PAIN History of Any Multi-Drug Resistant Organisms: None Reported Past Surgical History: Hysterectomy, Orthopedic Surgery Additional Past Surgical History / Comment(s): plate and screws in right ankle, picc line-since removed, cortisone injections to knees Past Anesthesia/Blood Transfusion Reactions: No Reported Reaction Additional Past Anesthesia/Blood Transfusion Reaction / Comment(s): past blood transfusions-no reactions Past Psychological History: Depression Smoking Status: Never smoker Past Alcohol Use History: None Reported Past Drug Use History: None Reported - Past Family History Mother Family Medical History: Cancer Additional Family Medical History / Comment(s): BREAST Father Family Medical History: Coronary Artery Disease (CAD) General Exam - General Exam Comments Initial Comments: General: Appears in no acute distress. HEAD: Normal with no signs of head trauma. EYES: PERRLA, EOMI, conjunctiva normal, no discharge. ENT: Hearing grossly intact, normal oropharynx. RESPIRATORY: Clear breath sounds bilaterally. No wheezes, rales, or rhonchi. No increased work of breathing. Saturating 93% on room air. C/V: Irregular rate and rhythm. S1 and S2 auscultated. Peripheral pulses are 2+ intact throughout. Patient does have mild 1+ edema that is symmetric in the bilateral lower extremities. ABD: Abd is soft, nontender, nondistended EXT: Normal range of motion, no obvious deformity SKIN: Patient does have what appears to be venous stasis changes over the left lower extremity which has been present for the last 6 weeks or so. Is not warm. It is not raised. No obvious fluctuance or induration. It is located over the anterior villeda and posterior calf down to the ankle. NEURO: Alert and oriented 4. No focal sensory or strength deficits. Course Vital Signs 10/10/21 20:07 Temperature 97.9 F Pulse Rate 102 H Respiratory 18 Rate Blood Pressure 111/93 O2 Sat by Pulse 97 Oximetry Medical Decision Making - Medical Decision Making Based on the patient's presentation and physical exam, I'm concerned for likely cardio pulmonary cause for her current symptoms, including concerned for heart failure exacerbation versus ACS. I believe that if her INR is therapeutic, and is unlikely she is expressing a pulmonary embolism or DVT at this time. However we will obtain a d-dimer addition to coags as well as bilateral lower extremity duplexes. She was in agreement this plan. We'll also obtain a BNP as well as COVID-19 swab. She'll be connected to continuous cardiac while she is here in the department. EKG shows atrial fibrillation, which is chronic with no signs of acute ischemia. She is rate controlled.Laboratory studies are remarkable for a macrocytic anemia with hemoglobin of 10.2, which appears to be stable. Patient has a therapeutic INR of 2.1. Patient has CK D, with a creatinine of 2.02 which is actually improved from her prior admission down from 2.3 in early September 2021. Troponin is negative. BNP is elevated to 10,500. Remainder of her labs are unremarkable. Chest x-ray shows evidence of congestive heart failure. Venous duplexes show suspected bilateral chronic DVTs. There are no acute DVTs. D- dimer is wnl. On reevaluation, patient remains unchanged. I discussed with her that I suspect she is expressing acute congestive heart failure exacerbation. I would like her to be admitted to the hospital. Due to her CK D, she will receive one dose of Lasix here in the department. Cardiology be will be consulted for evaluation tomorrow, and they can determine if they want to continue diuresis at that time. She was in agreement with this plan. She did request Alvarado catheter placement, she gets short of breath when trying to make it to the restroom. Cardiology was consulted for evaluation the morning. Cardiac echo was ordered by myself. I spoke with the admitting team, Dr. Madden who accepted the patient. Patient was therefore admitted in serious condition to a telemetry bed. - Lab Data Result diagrams: 10/10/21 21:07 10/10/21 21:07 Lab Results 10/10/21 10/10/21 10/10/21 Range/Units 21:07 21:07 21:07 WBC 10.9 H (3.8-10.6) k/uL RBC 3.40 L (3.80-5.40) m/uL Hgb 10.2 L (11.4-16.0) gm/dL Hct 34.1 (34.0-46.0) % MCV 100.2 H (80.0-100.0) fL MCH 30.1 (25.0-35.0) pg MCHC 30.1 L (31.0-37.0) g/dL RDW 16.6 H (11.5-15.5) % Plt Count 232 (150-450) k/uL MPV 8.4 Neutrophils % 81 % Lymphocytes % 12 % Monocytes % 4 % Eosinophils % 1 % Basophils % 0 % Neutrophils # 8.8 H (1.3-7.7) k/uL Lymphocytes # 1.4 (1.0-4.8) k/uL Monocytes # 0.5 (0-1.0) k/uL Eosinophils # 0.1 (0-0.7) k/uL Basophils # 0.0 (0-0.2) k/uL Hypochromasia Marked Anisocytosis Slight Macrocytosis Slight PT 20.7 H (9.0-12.0) sec INR 2.1 H (<1.2) APTT 31.8 H (22.0-30.0) sec D-Dimer 0.19 (<0.60) mg/L FEU Sodium 142 (137-145) mmol/L Potassium 4.3 (3.5-5.1) mmol/L Chloride 108 H (98-107) mmol/L Carbon Dioxide 23 (22-30) mmol/L Anion Gap 11 mmol/L BUN 32 H (7-17) mg/dL Creatinine 2.02 H (0.52-1.04) mg/dL Est GFR (CKD-EPI)AfAm 28 (>60 ml/min/1.73 sqM) Est GFR (CKD-EPI)NonAf 24 (>60 ml/min/1.73 sqM) Glucose 94 (74-99) mg/dL Calcium 9.3 (8.4-10.2) mg/dL Magnesium 1.8 (1.6-2.3) mg/dL Total Bilirubin 0.7 (0.2-1.3) mg/dL AST 30 (14-36) U/L ALT 18 (4-34) U/L Alkaline Phosphatase 37 L (38-126) U/L Troponin I (0.000-0.034) ng/mL NT-Pro-B Natriuret Pep pg/mL Total Protein 6.4 (6.3-8.2) g/dL Albumin 3.4 L (3.5-5.0) g/dL 10/10/21 10/10/21 Range/Units 21:07 21:07 WBC (3.8-10.6) k/uL RBC (3.80-5.40) m/uL Hgb (11.4-16.0) gm/dL Hct (34.0-46.0) % MCV (80.0-100.0) fL MCH (25.0-35.0) pg MCHC (31.0-37.0) g/dL RDW (11.5-15.5) % Plt Count (150-450) k/uL MPV Neutrophils % % Lymphocytes % % Monocytes % % Eosinophils % % Basophils % % Neutrophils # (1.3-7.7) k/uL Lymphocytes # (1.0-4.8) k/uL Monocytes # (0-1.0) k/uL Eosinophils # (0-0.7) k/uL Basophils # (0-0.2) k/uL Hypochromasia Anisocytosis Macrocytosis PT (9.0-12.0) sec INR (<1.2) APTT (22.0-30.0) sec D-Dimer (<0.60) mg/L FEU Sodium (137-145) mmol/L Potassium (3.5-5.1) mmol/L Chloride (98-107) mmol/L Carbon Dioxide (22-30) mmol/L Anion Gap mmol/L BUN (7-17) mg/dL Creatinine (0.52-1.04) mg/dL Est GFR (CKD-EPI)AfAm (>60 ml/min/1.73 sqM) Est GFR (CKD-EPI)NonAf (>60 ml/min/1.73 sqM) Glucose (74-99) mg/dL Calcium (8.4-10.2) mg/dL Magnesium (1.6-2.3) mg/dL Total Bilirubin (0.2-1.3) mg/dL AST (14-36) U/L ALT (4-34) U/L Alkaline Phosphatase (38-126) U/L Troponin I <0.012 (0.000-0.034) ng/mL NT-Pro-B Natriuret Pep 67279 pg/mL Total Protein (6.3-8.2) g/dL Albumin (3.5-5.0) g/dL - EKG Data -: EKG Interpreted by Me EKG Comments: 12-lead Electrocardiogram Interpretation Note EKG was reviewed and interpreted by myself. 12-lead ECG performed at 2044 is interpreted by me as revealing atrial fibrillation, rate controlled at a rate of 100 beats per minute. [place] is normal. OH interval is unobtainable, QRS duration is 98 ms, QTc is 461 ms.. There were no ST or T wave abnormalities to suggest myocardial ischemia or injury. R wave progression across the precordium was satisfactory. By my interpretation this EKG is non-diagnostic for acute ischemia. Disposition Clinical Impression: CHF exacerbation, Afib, Adequate anticoagulation on anticoagulant therapy, CKD (chronic kidney disease), Macrocytic anemia Disposition: ADMITTED IP TO THIS HOSP Condition: Serious Referrals: Noa Moran MD [REFERRING] - 1-2 days
--- NOTE | 2021-10-10 21:47 | US ---
EXAMINATION TYPE: US venous doppler duplex LE DATE OF EXAM: 10/10/2021 9:23 PM COMPARISON: US CLINICAL HISTORY: swelling, history of dvt. Swelling, history of DVT in left leg per patient. Patient on warfarin. SIDE PERFORMED: Bilateral TECHNIQUE: The lower extremity deep venous system is examined utilizing real time linear array sonog valeria with graded compression, doppler sonography and color-flow sonography. VESSELS IMAGED: Common Femoral Vein Deep Femoral Vein Greater Saphenous Vein * Femoral Vein Popliteal Vein Small Saphenous Vein * Proximal Calf Veins (* superficial vessels) Exam is limited due to patient body habitus, large pannus, and edema. Difficult to scan posterior to the knee. Right Leg: Possible chronic echoes within popliteal vein. Appears to compress incompletely. Color fl ow with artifact seen. Left Leg: Possible chronic echoes within popliteal vein. Appears to compress incompletely. Color jennifer w with artifact seen. IMPRESSION: There is evidence for some mild chronic deep vein thrombosis in the popliteal veins bila terally. No evidence of acute deep vein thrombosis.
--- NOTE | 2021-10-10 21:51 | XR ---
EXAMINATION TYPE: XR chest 2V DATE OF EXAM: 10/10/2021 COMPARISON: 08/19/2021 HISTORY: Short of breath TECHNIQUE: 2 views FINDINGS: Heart is enlarged. There is some pulmonary vascular congestion. Costophrenic angles show sl ight blunting. There are chest leads. Exam limited by patient size. IMPRESSION: There is evidence for congestive heart failure with probable small pleural effusions that are new compared to old exam. Limited exam.
[2021-10-10] MEDS ORDERED: FUROSEMIDE 10 MG/ML 4 ML VIAL IV STA (21:58)
[2021-10-10] MEDS ORDERED: NALOXONE 0.4 MG/ML 1 ML VIAL IV PRN (22:27)
[2021-10-10] MEDS ORDERED: traMADol 50 MG TAB PO PRN (22:30)
--- NOTE | 2021-10-10 23:13 | P.HPIM ---
History of Present Illness H&P Date: 10/10/21 The patient is a 70-year-old female with a PMH of recently diagnosed systolic CHF, chronic kidney disease, A. fib on Coumadin, who presents to the emergency room with complaints of lower extremity edema and shortness of breath. The patient reports that her bilateral lower extremity edema started roughly 3 weeks ago, somewhat worse on the left side with associated bilateral leg redness. She then noticed gradually worsening shortness of breath, although denied orthopnea or PND. She denied chest discomfort, nausea, vomiting, fever, chills, cough. The patient was recently hospitalized in August 2021 with COVID 19 pneumonia at which time she was diagnosed with CHF. The patient does not take diuretics at home. Has x-ray in the emergency room was consistent with CHF with EKG showing A. fib at 100 bpm. Laboratory evaluation was remarkable for a proBNP 10,500, troponin less than 0.012, BUN of 32, creatinine 2.0 to, down from 2.48, with INR 2.1. Review of systems: Pertinent positives and negatives as discussed in HPI, a complete review of systems was performed and all other systems are negative. Physical examination: General: non toxic, no distress, appears older than stated age, morbidly obese Derm: Bilateral lower extremity circumferential mild redness without erythema or tenderness, no calf tenderness noted, no unusual ecchymoses, warm, dry Head: atraumatic, normocephalic, symmetric Eyes: EOMI, no lid lag, anicteric sclera, pupils equal round reactive to light ENT: Nose and ears atraumatic, no thrush, no pharyngeal erythema Neck: No thyromegaly, no cervical lymphadenopathy, trachea midline, supple Mouth: no lip lesion, mucus membranes moist Cardiovascular: S1S2 reg, no murmur, positive posterior tibial pulse bilateral, 2+ asif LE pitting edema, capillary refill less than 2 seconds Lungs: Bibasilar rales, no rhonchi or wheezing appreciated, no accessory muscle use Abdominal: soft, nontender to palpation, no guarding, no appreciable organomegaly, normal bowel sounds Ext: no gross muscle atrophy, muscle strength 4 out of 5 in all 4 extremities grossly, no contractures, Neuro: CN II-XI grossly intact, light touch intact all 4 extremities, finger to nose within normal limits, Psych: Alert, oriented, appropriate affect Assessment/plan Acute CHF exacerbation -IV Lasix -Cardiology consult -Intake and output, daily weights, fluid restriction -Cardiac monitoring -Monitor electrolytes daily Asif LE redness -Likely venous stasis dermatitis -Low suspicion for cellulitis -LE doppler showing possible chronic DVTs -C/w Coumadin Chronic kidney disease, improved from baseline -Monitor for now A. fib on Coumadin, therapeutic DVT prophylaxis -Coumadin The patient is admitted with an anticipated greater than 2 midnight stay for evaluation of chf exacerbation CODE STATUS: Full Code Discussed with: Patient Anticipated discharge date: 2-[address]: Home Past Medical History Past Medical History: Blood Disorder, Cancer, Deep Vein Thrombosis (DVT), Hypertension, Osteoarthritis (OA), Pulmonary Embolus (PE) Additional Past Medical History / Comment(s): mthfr, uterine cancer(sx only), gout, anemia. uses 4 prong cane OR WALKER when up. BACK PAIN History of Any Multi-Drug Resistant Organisms: None Reported Past Surgical History: Hysterectomy, Orthopedic Surgery Additional Past Surgical History / Comment(s): plate and screws in right ankle, picc line-since removed, cortisone injections to knees Past Anesthesia/Blood Transfusion Reactions: No Reported Reaction Additional Past Anesthesia/Blood Transfusion Reaction / Comment(s): past blood transfusions-no reactions Past Psychological History: Depression Smoking Status: Never smoker Past Alcohol Use History: None Reported Past Drug Use History: None Reported - Past Family History Mother Family Medical History: Cancer Additional Family Medical History / Comment(s): BREAST Father Family Medical History: Coronary Artery Disease (CAD) Medications and Allergies Home Medications Medication Instructions Recorded Confirmed Type Allopurinol 200 mg PO DAILY 07/21/14 08/17/21 History Warfarin [Coumadin] 2.5 mg PO MOTUTHFRSA@1800 07/21/14 08/17/21 History traMADol HCL [Tramadol HCl] 50 - 100 mg PO TID PRN 07/21/14 08/17/21 History Cholecalciferol [Vitamin D3 (25 1,000 unit PO DAILY 01/29/18 08/17/21 History Mcg = 1000 Iu)] Metoprolol Tartrate 25 mg PO BID #60 tab 02/04/18 08/17/21 Rx Gabapentin [Neurontin] 100 mg PO BID 07/10/18 08/17/21 History Ferrous Sulfa 324mg 324 mg PO Q48H 08/17/21 08/17/21 History Folic Acid 1 mg PO DAILY 08/17/21 08/17/21 History Ascorbic Acid [Vitamin C] 1,000 mg PO DAILY #14 tab 08/23/21 Rx Dexamethasone [Decadron] 6 mg PO DAILY #3 tablet 08/23/21 Rx Sodium Bicarbonate Tab 650 mg PO BID #14 tab 08/23/21 Rx Zinc Sulfate [Orazinc] 220 mg PO DAILY #14 cap 08/23/21 Rx Allergies Allergy/AdvReac Type Severity Reaction Status Date / Time aspirin Allergy Rash/Hives Verified 08/17/21 14:45 codeine Allergy Itching Verified 08/17/21 14:45 Physical Exam Vitals: Vital Signs Temp Pulse Resp BP Pulse Ox 10/10/21 20:07 97.9 F 102 H 18 111/93 97 Intake and Output 10/10/21 10/10/21 10/11/21 14:59 22:59 06:59 Other: Weight 147.418 kg Results CBC & Chem 7: 10/10/21 21:07 10/10/21 21:07 Labs: Abnormal Lab Results - Last 24 Hours (Table) 10/10/21 10/10/21 10/10/21 Range/Units 21:07 21:07 21:07 WBC 10.9 H (3.8-10.6) k/uL RBC 3.40 L (3.80-5.40) m/uL Hgb 10.2 L (11.4-16.0) gm/dL MCV 100.2 H (80.0-100.0) fL MCHC 30.1 L (31.0-37.0) g/dL RDW 16.6 H (11.5-15.5) % Neutrophils # 8.8 H (1.3-7.7) k/uL PT 20.7 H (9.0-12.0) sec INR 2.1 H (<1.2) APTT 31.8 H (22.0-30.0) sec Chloride 108 H (98-107) mmol/L BUN 32 H (7-17) mg/dL Creatinine 2.02 H (0.52-1.04) mg/dL Alkaline Phosphatase 37 L (38-126) U/L Albumin 3.4 L (3.5-5.0) g/dL
[2021-10-11] MEDS: FUROSEMIDE 10 MG/ML 4 ML VIAL IV SCH ×2 (10:42→22:19)
[2021-10-11] MEDS: METOPROLOL TARTRATE 25 MG TAB PO SCH ×2 (10:43→22:18)
[2021-10-11] MEDS: GABAPENTIN 100 MG CAP PO SCH ×2 (10:43→22:19)
[2021-10-11] MEDS: SODIUM BICARBONATE TAB 650 MG TAB PO SCH ×2 (10:44→22:19)
--- NOTE | 2021-10-11 10:45 | P.CRDCN ---
History of Present Illness History of present illness: This is a 71 year old female with past medical history of chronic persistent atrial fibrillation on coumadin, pulmonary embolism 2008 following DVT in the knee, chronic systolic heart failure, chronic kidney disease stage IV, morbid obesity, osteoporosis with compression fractures of the lumbar spine, recent admission for covid-19 pneumonia in August 2021. 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 She does not follow with a automatic tire tester. We are consulted for congestive heart failure. Patient states she has been having worsening shortness of breath and dyspnea on exertion for the past 3 days. She also endorses worsening bilateral lower extremity edema. She states she does not leave the house and has a home health nurse once a week. Over the past 3 days she has been having to take breaks after a few steps in her house due to shortness of breath. Her home health nurse visited and noticed her lower extremity edema had worsened. She came to the ER for further evaluation. She denies any changes in her diet or medication. She has not checked her weight in order to notice a change. She does not take diuretics at home. She denies history of coronary artery disease, [place], Stroke or diabetes. She states she has not undergone cardiac catheterization or a stress test. She is a non-smoker. She denies any chest pain, palpitations, lightheadedness, dizziness, syncope or near syncope, fever, cough or chills. DIAGNOSTICS EKG reveals atrial fibrillation, heart rate 100, no significant ST or T-wave abnormalities. Prior EKGs patient is also an atrial fibrillation Telemetry tracings indicate atrial fibrillation with controlled ventricular rates. Chest xray congestive heart failure, probable small pleural effusions, some pulmonary vascular congestion. Venous doppler ultrasounds revealed mild bilateral chronic DVT in popliteal veins. No acute DVT Most recent echocardiogram 08/2021 revealed EF of 4550 percent, mild global hypokinesis of LV Laboratory reviewed, WBC 10.9, hemoglobin 10.2, platelets 232, INR 2.1, d-dimer negative, sodium 142, potassium 4.3, BUN 32, serum creatinine 2.0, magnesium 1.8 , troponin negative 3, proBNP 10,500, covid-19 negative Current home medications include Coumadin 2.5 mg, metoprolol tartrate 25 mg twice a day, folic acid, tramadol, gabapentin, allopurinol REVIEW OF SYSTEMS At the time of my exam: CONSTITUTIONAL: Denies fever or chills. CARDIOVASCULAR: Denies chest pain, +shortness of breath, Denies orthopnea, PND or palpitations. RESPIRATORY: Denies cough. GASTROINTESTINAL: Denies abdominal pain, diarrhea, constipation, nausea or vomiting. MUSCULOSKELETAL: Denies myalgias. NEUROLOGIC: Denies numbness, tingling, headache or weakness. ENDOCRINE: Denies fatigue, weight change, polydipsia or polyurina. GENITOURINARY: Denies burning, hematuria or urgency with micturation. HEMATOLOGIC: Denies history of anemia or bleeding. PHYSICAL EXAMINATION Vitals reviewed CONSTITUTIONAL: No apparent distress. HEENT: Head is normocephalic. Pupils are equal, round. Sclerae anicteric. Mucous membranes of the mouth are moist. No JVD. CHEST EXAMINATION: Lungs are diminished bilaterally to auscultation. No chest wall tenderness is noted on palpation or with deep breathing. HEART EXAMINATION: Regular rate and rhythm. S1, S2 heard. No murmurs, gallops or rub. ABDOMEN: Soft, nontender. Positive bowel sounds. EXTREMITIES: 2+ peripheral pulses, 1-2+ bilateral lower extremity edema, redness noted bilateral shins SKIN: warm, dry NEUROLOGIC EXAMINATION: Patient is awake, alert and oriented x3. ASSESSMENT Acute on chronic systolic heart failure Chronic persistent atrial fibrillation on coumadin Chronic DVT bilateral lower extremities History of pulmonary embolism 2008 following DVT in the knee Chronic kidney disease stage IV Cardiomyopathy, cannot rule out ischemic vs non-ischemic Morbid obesity History of osteoporosis with compression fractures of the lumbar spine Recent admission for covid-19 pneumonia in August 2021 PLAN Limited 2D echocardiogram ordered Start IV Lasix 40mg BID Monitor I/Os, daily weights, renal function and electrolytes Continue Coumadin and metoprolol tartrate Patient not on ACEI due to renal function Further recommendations based on clinical course Thank you kindly for this consultation. Nurse Practitioner note has been reviewed, I agree with a documented findings and plan of care. Patient was seen and examined. Past Medical History Past Medical History: Atrial Fibrillation, Blood Disorder, Cancer, Deep Vein Thrombosis (DVT), Hypertension, Osteoarthritis (OA), Pulmonary Embolus (PE) Additional Past Medical History / Comment(s): mthfr, uterine cancer, gout, anemia. uses 4 prong cane OR WALKER when up. BACK PAIN, chronic kidney disease History of Any Multi-Drug Resistant Organisms: None Reported Past Surgical History: Hysterectomy, Orthopedic Surgery Additional Past Surgical History / Comment(s): plate and screws in right ankle, picc line-since removed, cortisone injections to knees Past Anesthesia/Blood Transfusion Reactions: No Reported Reaction Additional Past Anesthesia/Blood Transfusion Reaction / Comment(s): past blood transfusions-no reactions Past Psychological History: Depression Additional Psychological History / Comment(s): PAST HISTORY DEPRESSION (2018) no longer takes antidepressants Smoking Status: Never smoker Past Alcohol Use History: None Reported Past Drug Use History: None Reported - Past Family History Mother Family Medical History: Cancer Additional Family Medical History / Comment(s): BREAST Father Family Medical History: Coronary Artery Disease (CAD) Medications and Allergies Home Medications Medication Instructions Recorded Confirmed Type Allopurinol 100 mg PO BID 07/21/14 10/10/21 History Warfarin [Coumadin] 2.5 mg PO MOTUTHFRSA 07/21/14 10/10/21 History traMADol HCL [Tramadol HCl] 100 mg PO BID 07/21/14 10/10/21 History Metoprolol Tartrate 25 mg PO BID #60 tab 02/04/18 10/10/21 Rx Gabapentin [Neurontin] 100 mg PO BID 07/10/18 10/10/21 History Cholecalciferol [Vitamin D3 (25 50 mcg PO DAILY 10/10/21 10/10/21 History Mcg = 1000 Iu)] Folic Acid 0.8 mg PO DAILY 10/10/21 10/10/21 History Allergies Allergy/AdvReac Type Severity Reaction Status Date / Time aspirin Allergy Rash/Hives Verified 10/10/21 23:25 codeine Allergy Itching Verified 10/10/21 23:25 Physical Exam Vitals: Vital Signs Temp Pulse Pulse Resp BP BP Pulse Ox 10/11/21 05:00 97.9 F 79 18 123/65 99 10/11/21 03:10 98 F 92 16 128/72 99 10/10/21 20:07 97.9 F 102 H 18 111/93 97 Intake and Output 10/10/21 10/11/21 10/11/21 22:59 06:59 14:59 Output Total 700 Balance -700 Output: Urine 700 Other: Voiding Method Indwelling Catheter Weight 147.418 kg 147.418 kg Results 10/10/21 21:07 01/05/22 21:07 Cardiac Enzymes 10/10/21 10/10/21 10/11/21 Range/Units 21:07 21:07 00:18 AST 30 (14-36) U/L Troponin I <0.012 <0.012 (0.000-0.034) ng/mL 10/11/21 Range/Units 04:09 AST (14-36) U/L Troponin I <0.012 (0.000-0.034) ng/mL Coagulation 10/10/21 Range/Units 21:07 PT 20.7 H (9.0-12.0) sec APTT 31.8 H (22.0-30.0) sec CBC 10/10/21 Range/Units 21:07 WBC 10.9 H (3.8-10.6) k/uL RBC 3.40 L (3.80-5.40) m/uL Hgb 10.2 L (11.4-16.0) gm/dL Hct 34.1 (34.0-46.0) % Plt Count 232 (150-450) k/uL Comprehensive Metabolic Panel 10/10/21 Range/Units 21:07 Sodium 142 (137-145) mmol/L Potassium 4.3 (3.5-5.1) mmol/L Chloride 108 H (98-107) mmol/L Carbon Dioxide 23 (22-30) mmol/L BUN 32 H (7-17) mg/dL Creatinine 2.02 H (0.52-1.04) mg/dL Glucose 94 (74-99) mg/dL Calcium 9.3 (8.4-10.2) mg/dL AST 30 (14-36) U/L ALT 18 (4-34) U/L Alkaline Phosphatase 37 L (38-126) U/L Total Protein 6.4 (6.3-8.2) g/dL Albumin 3.4 L (3.5-5.0) g/dL Current Medications Generic Name Dose Route Start Last Admin Trade Name Freq PRN Reason Stop Dose Admin Gabapentin 100 mg 10/11/21 09:00 Gabapentin 100 Mg Cap PO BID [facility] Metoprolol Tartrate 25 mg 10/11/21 09:00 Metoprolol Tartrate 25 Mg Tab PO BID [facility] Naloxone HCl 0.2 mg 10/10/21 22:27 Naloxone 0.4 Mg/Ml 1 Ml Vial IV Q2M PRN Opioid Reversal Sodium Bicarbonate 650 mg 10/11/21 09:00 Sodium Bicarbonate Tab 650 Mg Tab PO BID [facility] Tramadol HCl 50 mg 10/10/21 22:30 Tramadol 50 Mg Tab PO TID PRN Pain Warfarin Sodium 2.5 mg 10/11/21 18:00 Warfarin 2.5 Mg Tab PO MOTUTHFRSA@1800 [facility] Protocol Intake and Output 10/10/21 10/11/21 10/11/21 22:59 06:59 14:59 Output Total 700 Balance -700 Output: Urine 700 Other: Voiding Method Indwelling Catheter Weight 147.418 kg 147.418 kg 10/10/21 21:07 10/10/21 21:07
--- NOTE | 2021-10-11 11:00 | ECHOF ---
Referral Reason:chf MEASUREMENTS -------- HEIGHT: 157.5 cm WEIGHT: 147.4 kg BP: 123/65 RVIDd: 3.7 cm (< 3.3) RAP: 15.00 mmHg RVSP: 41.94 mmHg FINDINGS -------- Atrial fibrillation. Limited Study Overall left ventricular systolic function is mild-moderately impaired with, an EF between 40 - 45 %. The right ventricle is mildly enlarged. The aortic valve is trileaflet, and appears structurally normal. No aortic stenosis or regurgitation. Mild mitral annular calcification present. Mild mitral regurgitation is present. Mild tricuspid regurgitation present. There is mild pulmonary hypertension. The right ventricular systolic pressure, as measured by Doppler, is 41.94mmHg. Trace/mild (physiologic) pulmonic regurgitation. Normal inferior vena cava with less than 50% inspiratory collapse consistent with estimated right atr ial pressure of 15 mmHg. There is no pericardial effusion. CONCLUSIONS -------- 1. Limited Study 2. Overall left ventricular systolic function is mild-moderately impaired with, an EF between 40 - 45 %. 3. The right ventricle is mildly enlarged. 4. The aortic valve is trileaflet, and appears structurally normal. No aortic stenosis or regurgitati on. 5. Mild mitral annular calcification present. 6. Mild mitral regurgitation is present. 7. Mild tricuspid regurgitation present. 8. There is mild pulmonary hypertension. 9. The right ventricular systolic pressure, as measured by Doppler, is 41.94mmHg. 10. Trace/mild (physiologic) pulmonic regurgitation. 11. Normal inferior vena cava with less than 50% inspiratory collapse consistent with estimated right atrial pressure of 15 mmHg. 12. There is no pericardial effusion. DISC RECORDIST: Jeanine Rae [facility]
[2021-10-11 11:39] LABS: Calcium 9.5 mg/dL (8.4-10.2); Potassium 4.3 mmol/L (3.5-5.1)
--- NOTE | 2021-10-11 13:10 | P.PN ---
Subjective Progress Note Date: 10/11/21 No new complaints. Improving O2 requirement. Pending cardiology eval, echo. Ongoing IV lasix. Objective - Vital Signs Vital signs: Vital Signs Temp 98.2 F 10/11/21 11:41 Pulse 84 10/11/21 11:41 Resp 16 10/11/21 11:41 BP 124/59 10/11/21 11:41 Pulse Ox 96 10/11/21 11:41 Intake & Output 10/10/21 10/11/21 10/11/21 18:59 06:59 18:59 Output Total 700 Balance -700 Weight 147.418 kg Output: Urine 700 Other: Voiding Method Indwelling Catheter Indwelling Catheter - Exam Gen: awake, alert HEENT: normocephalic, atraumatic, good hearing acuity, moist mucous membranes Resp: good air exchange, breathing comfortably with no accessory muscle use CVS: good distal perfusion x 4, GI: soft, NTTP, ND : no SPT, no CVAT, esqueda catheter is present MSK: Bilateral pitting edema, no clubbing Neuro: non-focal, moving all extremities Psych: cooperative, euthymic mood - Labs CBC & Chem 7: 10/10/21 21:07 10/11/21 04:09 Labs: Abnormal Lab Results - Last 24 Hours (Table) 10/10/21 10/10/21 10/10/21 Range/Units 21:07 21:07 21:07 WBC 10.9 H (3.8-10.6) k/uL RBC 3.40 L (3.80-5.40) m/uL Hgb 10.2 L (11.4-16.0) gm/dL MCV 100.2 H (80.0-100.0) fL MCHC 30.1 L (31.0-37.0) g/dL RDW 16.6 H (11.5-15.5) % Neutrophils # 8.8 H (1.3-7.7) k/uL PT 20.7 H (9.0-12.0) sec INR 2.1 H (<1.2) APTT 31.8 H (22.0-30.0) sec Chloride 108 H (98-107) mmol/L BUN 32 H (7-17) mg/dL Creatinine 2.02 H (0.52-1.04) mg/dL Alkaline Phosphatase 37 L (38-126) U/L Albumin 3.4 L (3.5-5.0) g/dL 10/11/21 Range/Units 04:09 WBC (3.8-10.6) k/uL RBC (3.80-5.40) m/uL Hgb (11.4-16.0) gm/dL MCV (80.0-100.0) fL MCHC (31.0-37.0) g/dL RDW (11.5-15.5) % Neutrophils # (1.3-7.7) k/uL PT (9.0-12.0) sec INR (<1.2) APTT (22.0-30.0) sec Chloride 108 H (98-107) mmol/L BUN 31 H (7-17) mg/dL Creatinine 2.21 H (0.52-1.04) mg/dL Alkaline Phosphatase (38-126) U/L Albumin (3.5-5.0) g/dL Assessment and Plan Assessment: Acute systolic CHF exacerbation -IV Lasix -Cardiology consult -Intake and output, daily weights, fluid restriction -Cardiac monitoring -Monitor electrolytes daily Chronic LE DVTs -Likely venous stasis dermatitis -Low suspicion for cellulitis -LE doppler showing possible chronic DVTs -C/w Coumadin Chronic kidney disease, improved from baseline -Monitor for now A. fib on Coumadin, therapeutic DVT prophylaxis -Coumadin The patient is admitted with an anticipated greater than 2 midnight stay for evaluation of chf exacerbation CODE STATUS: Full Code Discussed with: Patient Anticipated discharge date: 2-[address]: Home
[2021-10-11] MEDS: WARFARIN 2.5 MG TAB PO SCH (17:11)
[2021-10-11 17:32] LABS: Anisocytosis Slight; HCT 33.2 % (34.0-46.0); HGB 9.9 gm/dL (11.4-16.0); Hypochromasia Marked; MCH 30.4 pg (25.0-35.0); MCHC 29.7 g/dL (31.0-37.0); MCV 102.4 fL (80.0-100.0); Macrocytosis Moderate; Mean Platelet Volume 8.1; Platelet Count 226 k/uL (150-450); RBC 3.25 m/uL (3.80-5.40); WBC 8.7 k/uL (3.8-10.6)
[2021-10-12 07:10] LABS: Potassium 4.3 mmol/L (3.5-5.1)
[2021-10-12 07:11] LABS: African American GFR (CKD) 21 (>60 ml/min/1.73 sqM); Anion Gap 7 mmol/L; Blood Urea Nitrogen 37 mg/dL (7-17); Calcium 9.1 mg/dL (8.4-10.2); Carbon Dioxide 28 mmol/L (22-30); Chloride 105 mmol/L (98-107); Glucose 87 mg/dL (74-99); Non-African American GFR(CKD) 18 (>60 ml/min/1.73 sqM); Sodium 140 mmol/L (137-145)
[2021-10-12 09:15] LABS: INR 2.13 (0.90-1.11); Prothrombin Time 22.6 sec (9.9-11.9)
[2021-10-12] MEDS: FUROSEMIDE 10 MG/ML 4 ML VIAL IV SCH ×2 (09:56→20:56)
[2021-10-12] MEDS: GABAPENTIN 100 MG CAP PO SCH ×2 (09:56→20:56)
[2021-10-12] MEDS: SODIUM BICARBONATE TAB 650 MG TAB PO SCH ×3 (09:56→20:57)
[2021-10-12] MEDS: METOPROLOL TARTRATE 25 MG TAB PO SCH ×2 (09:56→20:56)
--- NOTE | 2021-10-12 13:00 | P.PN ---
Subjective Progress Note Date: 10/12/21 Pt is sitting in chair resting comfortably, exercise tolerance improving, but still poor. No o2 requirement at rest. Cr worsening today. Objective - Vital Signs Vital signs: Vital Signs Temp 97.7 F 10/12/21 04:25 Pulse 85 10/12/21 04:25 Resp 16 10/12/21 04:25 BP 128/74 10/12/21 04:25 Pulse Ox 98 10/12/21 04:25 Intake & Output 10/11/21 10/12/21 10/12/21 18:59 06:59 18:59 Weight 141.5 kg Other: Voiding Method Indwelling Catheter Indwelling Catheter Indwelling Catheter - Exam Gen: awake, alert HEENT: normocephalic, atraumatic, good hearing acuity, moist mucous membranes Resp: good air exchange, breathing comfortably with no accessory muscle use CVS: good distal perfusion x 4, GI: soft, NTTP, ND : no SPT, no CVAT, esqueda catheter is present MSK: Bilateral pitting edema, no clubbing Neuro: non-focal, moving all extremities Psych: cooperative, euthymic mood - Labs CBC & Chem 7: 10/11/21 17:10 10/12/21 05:41 Labs: Abnormal Lab Results - Last 24 Hours (Table) 10/11/21 10/12/21 10/12/21 Range/Units 17:10 05:41 05:41 RBC 3.25 L (3.80-5.40) m/uL Hgb 9.9 L (11.4-16.0) gm/dL Hct 33.2 L (34.0-46.0) % MCV 102.4 H (80.0-100.0) fL MCHC 29.7 L (31.0-37.0) g/dL RDW 17.0 H (11.5-15.5) % PT 22.6 H (9.9-11.9) sec INR 2.13 H (0.90-1.11) BUN 37 H (7-17) mg/dL Creatinine 2.53 H (0.52-1.04) mg/dL Assessment and Plan Assessment: Acute systolic CHF exacerbation, EF 40-45% -IV Lasix -Cardiology consult -Intake and output, daily weights, fluid restriction -Cardiac monitoring -Monitor electrolytes daily Chronic LE DVTs -Likely venous stasis dermatitis -Low suspicion for cellulitis -LE doppler showing possible chronic DVTs -C/w Coumadin Chronic kidney disease, improved from baseline -Monitor for now A. fib on Coumadin, therapeutic DVT prophylaxis -Coumadin The patient is admitted with an anticipated greater than 2 midnight stay for evaluation of chf exacerbation CODE STATUS: Full Code Discussed with: Patient Anticipated discharge date: 2-[address]: Home
--- NOTE | 2021-10-12 14:24 | P.PN ---
Subjective This is a 71 year old female with past medical history of chronic persistent atrial fibrillation on coumadin, pulmonary embolism 2008 following DVT in the knee, chronic systolic heart failure, chronic kidney disease stage IV, morbid obesity, osteoporosis with compression fractures of the lumbar spine, recent admission for covid-19 pneumonia in August 2021. She also states she was diagnosed with MTHFR mutation by multigraph operator and was started on coumadin years ago. She does not follow with a superintendent meters. We are consulted for congest lovely heart failure. Patient states she has been having worsening shortness of breath and dyspnea on exertion for the past 3 days. She also endorses worsening bilateral lower extremity edema. She states she does not leave the house and has a home health nurse once a week. Over the past 3 days she has been having to take breaks after a few steps in her house due to shortness of breath. Her home health nurse visited and noticed her lower extremity edema had worsened. She came to the ER for further evaluation. She denies any changes in her diet or medication. She has not checked her weight in order to notice a change. She does not take diuretics at home. She denies history of coronary artery disease, [place], Stroke or diabetes. She states she has not undergone cardiac catheterization or a stress test. She is a non-smoker. 10/06/2021 Patient seen at bedside, no distress. She continues to have shortness of breath, but has improved. She continues to have lower extremity edema. She denies any chest pain. Limited echo revealed no change in EF 40-45%, mild MR, mild TR, mild pulmonary hypertension with an RVSP of 42 mmHg. Last revealed, INR 2.1, BUN 37, sCr 2.5. Patient atrial fibrillation controlled ventricular rate. PHYSICAL EXAMINATION Vitals reviewed CONSTITUTIONAL: No apparent distress. HEENT: Neck supple. No JVD. CHEST EXAMINATION: Lungs are diminished bilaterally to auscultation. HEART EXAMINATION: Regular rate and rhythm. S1, S2 heard. No murmurs, gallops or rub. ABDOMEN: Soft, nontender. Positive bowel sounds. EXTREMITIES: 2+ peripheral pulses, 1-2+ bilateral lower extremity edema, redness noted bilateral shins SKIN: warm, dry NEUROLOGIC EXAMINATION: Patient is awake, alert and oriented x3. ASSESSMENT Acute on chronic diastolic heart failure EF 45% Chronic persistent atrial fibrillation on coumadin Chronic DVT bilateral lower extremities History of pulmonary embolism 2008 following DVT in the knee Chronic kidney disease stage IV Cardiomyopathy, cannot rule out ischemic vs non-ischemic Morbid obesity History of osteoporosis with compression fractures of the lumbar spine Recent admission for covid-19 pneumonia in August 2021 PLAN Continue IV Lasix 40mg BID for additional 24 hours, likely transition to PO tomorrow Monitor I/Os, daily weights, renal function and electrolytes Continue Coumadin and metoprolol tartrate Patient not on ACEI due to renal function Further recommendations based on clinical course Thank you kindly for this consultation. Nurse Practitioner note has been reviewed, I agree with a documented findings and plan of care. Patient was seen and examined. Objective - Vital Signs Vital signs: Vital Signs Temp 98.0 F 10/12/21 12:21 Pulse 95 10/12/21 12:21 Resp 19 10/12/21 12:21 BP 112/66 10/12/21 12:21 Pulse Ox 95 10/12/21 12:21 Intake & Output 10/11/21 10/12/21 10/12/21 18:59 06:59 18:59 Weight 141.5 kg Other: Voiding Method Indwelling Catheter Indwelling Catheter Indwelling Catheter - Labs CBC & Chem 7: 10/11/21 17:10 10/12/21 05:41 Labs: Abnormal Lab Results - Last 24 Hours (Table) 10/11/21 10/12/21 10/12/21 Range/Units 17:10 05:41 05:41 RBC 3.25 L (3.80-5.40) m/uL Hgb 9.9 L (11.4-16.0) gm/dL Hct 33.2 L (34.0-46.0) % MCV 102.4 H (80.0-100.0) fL MCHC 29.7 L (31.0-37.0) g/dL RDW 17.0 H (11.5-15.5) % PT 22.6 H (9.9-11.9) sec INR 2.13 H (0.90-1.11) BUN 37 H (7-17) mg/dL Creatinine 2.53 H (0.52-1.04) mg/dL
[2021-10-12] MEDS: WARFARIN 2.5 MG TAB PO SCH (17:04)
[2021-10-12] MEDS: polyethylene glycoL 3350 17 GM POWD.PACK PO SCH (17:04)
[2021-10-13 07:14] LABS: INR 2.1 (<1.2); Prothrombin Time 20.7 sec (9.0-12.0)
[2021-10-13 07:35] LABS: African American GFR (CKD) 23 (>60 ml/min/1.73 sqM); Anion Gap 6 mmol/L; Blood Urea Nitrogen 40 mg/dL (7-17); Calcium 9.4 mg/dL (8.4-10.2); Carbon Dioxide 31 mmol/L (22-30); Chloride 101 mmol/L (98-107); Glucose 94 mg/dL (74-99); Magnesium 1.6 mg/dL (1.6-2.3); Non-African American GFR(CKD) 20 (>60 ml/min/1.73 sqM); Potassium 3.8 mmol/L (3.5-5.1); Sodium 138 mmol/L (137-145)
[2021-10-13] MEDS: GABAPENTIN 100 MG CAP PO SCH ×2 (08:43→21:18)
[2021-10-13] MEDS: FUROSEMIDE 10 MG/ML 4 ML VIAL IV SCH ×2 (08:43→21:19)
[2021-10-13] MEDS: SODIUM BICARBONATE TAB 650 MG TAB PO SCH ×2 (08:43→21:18)
[2021-10-13] MEDS: METOPROLOL TARTRATE 25 MG TAB PO SCH ×2 (08:43→21:19)
[2021-10-13] MEDS: polyethylene glycoL 3350 17 GM POWD.PACK PO SCH (08:44)
[2021-10-13] MEDS ORDERED: bisacodyL 10 MG SUPP RECTAL STA (11:44)
--- NOTE | 2021-10-13 12:57 | P.PN ---
Subjective Progress Note Date: 10/13/21 This is a 71 year old female with past medical history of chronic persistent atrial fibrillation on coumadin, pulmonary embolism 2008 following DVT in the knee, chronic systolic heart failure, chronic kidney disease stage IV, morbid obesity, osteoporosis with compression fractures of the lumbar spine, recent admission for covid-19 pneumonia in August 2021. She also states she was diagnosed with MTHFR mutation by nursing scheduler and was started on coumadin years ago. She does not follow with a information writer. We are consulted for congestive heart failure. Patient states she has been having worsening shortness of breath and dyspnea on exertion for the past 3 days. She also endorses worsening bilateral lower extremity edema. She states she does not leave the house and has a home health nurse once a week. Over the past 3 days she has been having to take breaks after a few steps in her house due to shortness of breath. Her home health nurse visited and noticed her lower extremity edema had worsened. She came to the ER for further evaluation. She denies any changes in her diet or medication. She has not checked her weight in order to notice a change. She does not take diuretics at home. She denies history of coronary artery disease, [place], Stroke or diabetes. She states she has not undergone cardiac catheterization or a stress test. She is a non-smoker. 10/12/2021 Patient seen at bedside, no distress. She continues to have shortness of breath, but has improved. She continues to have lower extremity edema. She denies any chest pain. Limited echo revealed no change in EF 40-45%, mild MR, mild TR, mild pulmonary hypertension with an RVSP of 42 mmHg. Last revealed, INR 2.1, BUN 37, sCr 2.5. Patient atrial fibrillation controlled ventricular rate. 10/13/2021 Patient is seen today on the [facility] floor. She states that shortness of breath is getting better and she is not gasping for breath. She states she is urinating lots, Alvarado catheter is in place. She is ambulating only to chair and bed. Decreased lower extremity edema. She is concerned that she has not had a bowel movement, deferred to medicine. INR is 2.1. BUN 40 creatinine 2.38. Weight is down 9 kg. PHYSICAL EXAMINATION Vitals reviewed CONSTITUTIONAL: No apparent distress. HEENT: Neck supple. No JVD. CHEST EXAMINATION: Lungs are diminished bilaterally to auscultation. HEART EXAMINATION: Regular rate and rhythm. S1, S2 heard. No murmurs, gallops or rub. ABDOMEN: Soft, nontender. Positive bowel sounds. EXTREMITIES: 2+ peripheral pulses, 1+ bilateral lower extremity edema, mild redness noted bilateral shins SKIN: warm, dry NEUROLOGIC EXAMINATION: Patient is awake, alert and oriented x3. ASSESSMENT Acute on chronic diastolic heart failure EF 45% Chronic persistent atrial fibrillation on coumadin Chronic DVT bilateral lower extremities History of pulmonary embolism 2008 following DVT in the knee Chronic kidney disease stage IV Cardiomyopathy, cannot rule out ischemic vs non-ischemic Morbid obesity History of osteoporosis with compression fractures of the lumbar spine Recent admission for covid-19 pneumonia in August 2021 PLAN Continue IV Lasix 40mg BID for additional 24 hours, likely transition to PO tomorrow Monitor I/Os, daily weights, renal function and electrolytes Continue Coumadin and metoprolol tartrate Patient not on ACEI due to renal function Further recommendations based on clinical course Anticipate probable discharge home tomorrow Thank you kindly for this consultation. Nurse Practitioner note has been reviewed, I agree with a documented findings and plan of care. Patient was seen and examined. Objective - Vital Signs Vital signs: Vital Signs Temp 97.9 F 10/13/21 04:21 Pulse 90 10/13/21 04:21 Resp 16 10/13/21 04:21 BP 144/77 10/13/21 04:21 Pulse Ox 96 10/12/21 21:00 Intake & Output 10/12/21 10/13/21 10/13/21 18:59 06:59 18:59 Intake Total 120 Output Total 2500 Balance -2500 120 Weight 134.5 kg Intake: Oral 120 Output: Urine 2500 Other: Voiding Method Indwelling Catheter Indwelling Catheter - Labs CBC & Chem 7: 10/11/21 17:10 10/13/21 06:27 Labs: Abnormal Lab Results - Last 24 Hours (Table) 10/13/21 10/13/21 Range/Units 06:27 06:27 PT 20.7 H (9.0-12.0) sec INR 2.1 H (<1.2) Carbon Dioxide 31 H (22-30) mmol/L BUN 40 H (7-17) mg/dL Creatinine 2.38 H (0.52-1.04) mg/dL
--- NOTE | 2021-10-13 13:20 | P.PN ---
Subjective Progress Note Date: 10/13/21 No new complaints. had good UOP over last 24 hours. Objective - Vital Signs Vital signs: Vital Signs Temp 97.9 F 10/13/21 04:21 Pulse 90 10/13/21 04:21 Resp 16 10/13/21 04:21 BP 144/77 10/13/21 04:21 Pulse Ox 96 10/12/21 21:00 Intake & Output 10/12/21 10/13/21 10/13/21 18:59 06:59 18:59 Intake Total 120 Output Total 2500 Balance -2500 120 Weight 134.5 kg Intake: Oral 120 Output: Urine 2500 Other: Voiding Method Indwelling Catheter Indwelling Catheter - Exam Gen: awake, alert HEENT: normocephalic, atraumatic, good hearing acuity, moist mucous membranes Resp: good air exchange, breathing comfortably with no accessory muscle use CVS: good distal perfusion x 4, GI: soft, NTTP, ND : no SPT, no CVAT, esqueda catheter is present MSK: Bilateral pitting edema, no clubbing Neuro: non-focal, moving all extremities Psych: cooperative, euthymic mood - Labs CBC & Chem 7: 10/11/21 17:10 10/13/21 06:27 Labs: Abnormal Lab Results - Last 24 Hours (Table) 10/13/21 10/13/21 Range/Units 06:27 06:27 PT 20.7 H (9.0-12.0) sec INR 2.1 H (<1.2) Carbon Dioxide 31 H (22-30) mmol/L BUN 40 H (7-17) mg/dL Creatinine 2.38 H (0.52-1.04) mg/dL Assessment and Plan Assessment: Acute systolic CHF exacerbation, EF 40-45% -IV Lasix -Cardiology consult -Intake and output, daily weights, fluid restriction -Cardiac monitoring -Monitor electrolytes daily Chronic LE DVTs -Likely venous stasis dermatitis -Low suspicion for cellulitis -LE doppler showing possible chronic DVTs -C/w Coumadin Chronic kidney disease, improved from baseline -Monitor for now A. fib on Coumadin, therapeutic DVT prophylaxis -Coumadin The patient is admitted with an anticipated greater than 2 midnight stay for evaluation of chf exacerbation CODE STATUS: Full Code Discussed with: Patient Anticipated discharge date: 2-[address]: Home
[2021-10-13] MEDS: WARFARIN 2.5 MG TAB PO SCH (17:26)
[2021-10-14 08:01] LABS: Prothrombin Time 19.2 sec (9.0-12.0)
[2021-10-14] MEDS: SODIUM BICARBONATE TAB 650 MG TAB PO SCH ×2 (08:09→20:55)
[2021-10-14] MEDS: polyethylene glycoL 3350 17 GM POWD.PACK PO SCH (08:10)
[2021-10-14] MEDS: GABAPENTIN 100 MG CAP PO SCH ×2 (08:10→20:55)
[2021-10-14] MEDS: FUROSEMIDE 10 MG/ML 4 ML VIAL IV SCH (08:10)
[2021-10-14] MEDS: METOPROLOL TARTRATE 25 MG TAB PO SCH ×2 (08:10→20:54)
--- NOTE | 2021-10-14 12:58 | P.PN ---
Subjective Progress Note Date: 10/14/21 This is a 71 year old female with past medical history of chronic persistent atrial fibrillation on coumadin, pulmonary embolism 2008 following DVT in the knee, chronic systolic heart failure, chronic kidney disease stage IV, morbid obesity, osteoporosis with compression fractures of the lumbar spine, recent admission for covid-19 pneumonia in August 2021. 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 She does not follow with a bread packer. We are consulted for congestive heart failure. Patient states she has been having worsening shortness of breath and dyspnea on exertion for the past 3 days. She also endorses worsening bilateral lower extremity edema. She states she does not leave the house and has a home health nurse once a week. Over the past 3 days she has been having to take breaks after a few steps in her house due to shortness of breath. Her home health nurse visited and noticed her lower extremity edema had worsened. She came to the ER for further evaluation. She denies any changes in her diet or medication. She has not checked her weight in order to notice a change. She does not take diuretics at home. She denies history of coronary artery disease, [place], Stroke or diabetes. She states she has not undergone cardiac catheterization or a stress test. She is a non-smoker. 10/12/2021 Patient seen at bedside, no distress. She continues to have shortness of breath, but has improved. She continues to have lower extremity edema. She denies any chest pain. Limited echo revealed no change in EF 40-45%, mild MR, mild TR, mild pulmonary hypertension with an RVSP of 42 mmHg. Last revealed, INR 2.1, BUN 37, sCr 2.5. Patient atrial fibrillation controlled ventricular rate. 10/13/2021 Patient is seen today on the [facility] floor. She states that shortness of breath is getting better and she is not gasping for breath. She states she is urinating lots, Alvarado catheter is in place. She is ambulating only to chair and bed. Decreased lower extremity edema. She is concerned that she has not had a bowel movement, deferred to medicine. INR is 2.1. BUN 40 creatinine 2.38. Weight is down 9 kg. 10/14/2021 Patient states that she is feeling better today as far as breathing but has some shortness of breath like difficulty expanding her chest sensation. She is feeling tired today. She has only been ambulating from the bed to the chair and has Alvarado catheter in place. She is complaining of her feet itching and burning. INR is 2.0, pharmacy dosing. BUN 40 and creatinine 2.38. PHYSICAL EXAMINATION Vitals reviewed CONSTITUTIONAL: No apparent distress. HEENT: Neck supple. No JVD. CHEST EXAMINATION: Lungs are diminished bilaterally to auscultation. HEART EXAMINATION: Regular rate and rhythm. S1, S2 heard. No murmurs, gallops or rub. ABDOMEN: Soft, nontender. Positive bowel sounds. EXTREMITIES: 2+ peripheral pulses, 1+ bilateral lower extremity edema, mild redness noted bilateral shins SKIN: warm, dry NEUROLOGIC EXAMINATION: Patient is awake, alert and oriented x3. ASSESSMENT Acute on chronic diastolic heart failure EF 45% Chronic persistent atrial fibrillation on coumadin Chronic DVT bilateral lower extremities History of pulmonary embolism 2008 following DVT in the knee Chronic kidney disease stage IV Cardiomyopathy, cannot rule out ischemic vs non-ischemic Morbid obesity History of osteoporosis with compression fractures of the lumbar spine Recent admission for covid-19 pneumonia in August 2021 PLAN Continue IV Lasix 40mg BID for additional 24 hours, likely transition to PO tomorrow Monitor I/Os, daily weights, renal function and electrolytes Continue Coumadin and metoprolol tartrate Patient not on ACEI due to renal function Further recommendations based on clinical course Anticipate probable discharge home tomorrow Thank you kindly for this consultation. Nurse Practitioner note has been reviewed, I agree with a documented findings and plan of care. Patient was seen and examined. Objective - Vital Signs Vital signs: Vital Signs Temp 97.9 F 10/14/21 04:35 Pulse 67 10/14/21 04:35 Resp 20 10/14/21 04:35 BP 100/60 10/14/21 04:35 Pulse Ox 93 L 10/14/21 04:35 Intake & Output 10/13/21 10/14/21 10/14/21 18:59 06:59 18:59 Intake Total 120 Output Total 1100 3100 Balance -980 -3100 Weight 129.5 kg Intake: Oral 120 Output: Urine 1100 3100 Straight 1700 Other: Voiding Method Indwelling Catheter Indwelling Catheter # Bowel Movements 1 - Labs CBC & Chem 7: 10/11/21 17:10 10/13/21 06:27 Labs: Abnormal Lab Results - Last 24 Hours (Table) 10/14/21 Range/Units 06:54 PT 19.2 H (9.0-12.0) sec INR 2.0 H (<1.2)
--- NOTE | 2021-10-14 13:37 | P.PN ---
Subjective Progress Note Date: 10/14/21 Pt diuresing well but still grossly volume overloaded and with minimal but improving exercise tolerance. Plan for ongoing IV diuretics. Objective - Vital Signs Vital signs: Vital Signs Temp 97.9 F 10/14/21 04:35 Pulse 67 10/14/21 04:35 Resp 20 10/14/21 04:35 BP 100/60 10/14/21 04:35 Pulse Ox 93 L 10/14/21 04:35 Intake & Output 10/13/21 10/14/21 10/14/21 18:59 06:59 18:59 Intake Total 120 Output Total 1100 3100 Balance -980 -3100 Weight 129.5 kg Intake: Oral 120 Output: Urine 1100 3100 Straight 1700 Other: Voiding Method Indwelling Catheter Indwelling Catheter # Bowel Movements 1 - Exam Gen: awake, alert HEENT: normocephalic, atraumatic, good hearing acuity, moist mucous membranes Resp: good air exchange, breathing comfortably with no accessory muscle use CVS: good distal perfusion x 4, GI: soft, NTTP, ND : no SPT, no CVAT, esqueda catheter is present MSK: Bilateral pitting edema, no clubbing Neuro: non-focal, moving all extremities Psych: cooperative, euthymic mood - Labs CBC & Chem 7: 10/11/21 17:10 10/13/21 06:27 Labs: Abnormal Lab Results - Last 24 Hours (Table) 10/14/21 Range/Units 06:54 PT 19.2 H (9.0-12.0) sec INR 2.0 H (<1.2) Assessment and Plan Assessment: Acute systolic CHF exacerbation, EF 40-45% -IV Lasix -Cardiology consult -Intake and output, daily weights, fluid restriction -Cardiac monitoring -Monitor electrolytes daily Chronic LE DVTs -Likely venous stasis dermatitis -Low suspicion for cellulitis -LE doppler showing possible chronic DVTs -C/w Coumadin Chronic kidney disease, improved from baseline -Monitor for now A. fib on Coumadin, therapeutic DVT prophylaxis -Coumadin The patient is admitted with an anticipated greater than 2 midnight stay for evaluation of chf exacerbation CODE STATUS: Full Code Discussed with: Patient Anticipated discharge date: 2-[address]: Home
[2021-10-14] MEDS: FUROSEMIDE 40 MG TAB PO SCH (16:59)
[2021-10-14] MEDS ORDERED: WARFARIN 2.5 MG TAB PO ONE (18:00)
[2021-10-15 04:17] VITALS: TEMP 98
[2021-10-15 07:22] LABS: Anisocytosis Slight; Basophils % (A) 0 %; Eosinophils # (A) 0.2 k/uL (0-0.7); Eosinophils % (A) 2 %; HGB 10.7 gm/dL (11.4-16.0); Hypochromasia Marked; Lymphocytes # (A) 1.6 k/uL (1.0-4.8); Lymphocytes % (A) 15 %; MCH 30.4 pg (25.0-35.0); MCHC 29.7 g/dL (31.0-37.0); MCV 102.5 fL (80.0-100.0); Macrocytosis Moderate; Monocytes # (A) 0.5 k/uL (0-1.0); Monocytes % (A) 5 %; Neutrophils # (A) 7.8 k/uL (1.3-7.7); Neutrophils % (A) 75 %; Platelet Count 211 k/uL (150-450); RBC 3.51 m/uL (3.80-5.40); RDW 16.8 % (11.5-15.5); WBC 10.3 k/uL (3.8-10.6)
[2021-10-15 07:35] LABS: INR 1.8 (<1.2); Prothrombin Time 17.5 sec (9.0-12.0)
[2021-10-15] MEDS: FUROSEMIDE 40 MG TAB PO SCH (08:58)
[2021-10-15] MEDS: GABAPENTIN 100 MG CAP PO SCH (08:59)
[2021-10-15] MEDS: METOPROLOL TARTRATE 25 MG TAB PO SCH (08:59)
[2021-10-15] MEDS: SODIUM BICARBONATE TAB 650 MG TAB PO SCH (08:59)
[2021-10-15] MEDS: polyethylene glycoL 3350 17 GM POWD.PACK PO SCH (09:00)
--- NOTE | 2021-10-15 10:02 | CDI ---
Documentation Clarification Form Date: 10/15/2021 09:43:55 AM From: Nicole AdkinsGULSHAN, CCDS Admit Date: 10/10/2021 10:27:00 PM Patient Name: Nicole Pal Visit Number: [id number] Discharge Date: ATTENTION: The Clinical Documentation Specialists (CDI) and [facility] Coding Staff appreciate your assistance in clarifying documentation. Please respond to the clarification below the line at the bottom and electronically sign. The CDI & [facility] Coding staff will review the response and follow-up if needed. Please note: Queries are made part of the Legal Health Record. If you have any questions, please contact the author of this message via ITS. Dr. Cat Macias: Conflicting documentation has been found in the medical record regarding the diagnosis of CHF. As attending physician, please provide clarification. Per the 10/14 History & Physical and subsequent Attending Physician Progress Notes: Acute Systolic CHF exacerbation, EF 40-45% is documented. Per the 10/11 Cardiology Consult: Acute on Chronic Systolic CHF is documented. Per the 10/12, 10/13 Cardiology Progress Notes: Acute on Chronic Diastolic Heart Failure EF 45% is documented. Per the 10/14 Cardiology Progress Note: Past medical history of Chronic Systolic Heart Failure. Impression: Acute on Chronic Diastolic Heart Failure EF 45%. History/Risk Factors per the 10/10 History & Physical: Systolic CHF, CKD, Atrial Fib on Coumadin. COVID 19 in August 2021, DVT, Hypertension, Osteoarthritis, PE, MTHFR gene, Uterine Cancer, Gout, Anemia. Clinical Indicators: Presented to the ED on 10/10 via EMS with SOB. Admitted with CHF exacerbation, Atrial Fibrillation, Adequate anticoagulation, CKD, Macrocytic Anemia. 10/10 VS: T 97.9, P 102, R 18, BP 111/93, PO 97 2Lnc, BMI: 51.6 10/10 LAB: WBC 10.9, Hgb 10.2, Neutrophils 8.8, PT 20.7, INR 2.1, APTT 31.8; Cl 108, BUN 32, Creatinine 2.02, Alk Phos 37, Albumin 3.4. COVID negative. 10/10 US Lower extremities: Mild chronic DVT in bilateral popliteal veins. 10/10 CXR: Evidence of CHF with probable small pleural effusions, new. 10/11 ECHO: Left ventricular systolic function is mild-moderately impaired with EF 40-45%. Right ventricle is mildly enlarged. Mild MR, Mild TR, Mild pulmonary hypertension. Treatment 10/10: IV Lasix 40 mg x1. Please clarify which diagnosis is most appropriate: [x] Acute on Chronic Combined Systolic and Diastolic CHF [ ] Acute on Chronic Diastolic CHF [ ] Other (please specify) [ ] Unable to determine (Template Last Revised: December 2020) MTDD
[2021-10-15 11:13] LABS: African American GFR (CKD) 20.4 (60.0-200.0); Anion Gap 17.6 mmol/L (10.00-18.00); BUN/Creat Ratio 17.85 Ratio (12.00-20.00); Blood Urea Nitrogen 46.4 mg/dL (9.0-27.0); Calcium 9.1 mg/dL (8.7-10.3); Carbon Dioxide 26.4 mmol/L (20.0-27.5); Non-African American GFR(CKD) 17.6 (60.0-200.0); Potassium 3.8 mmol/L (3.5-5.5)
[2021-10-15 11:44] VITALS: BP 113/55; PULSE 72; RESP 16
--- NOTE | 2021-10-15 12:22 | P.PN ---
Subjective Progress Note Date: 10/15/21 HISTORY OF PRESENT ILLNESS: This is a 71 year old female with past medical history of chronic persistent atrial fibrillation on coumadin, pulmonary embolism 2008 following DVT in the knee, chronic systolic heart failure, chronic kidney disease stage IV, morbid obesity, osteoporosis with compression fractures of the lumbar spine, recent admission for covid-19 pneumonia in August 2021. 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 She does not follow with a coremaker floor. We are consulted for congestive heart failure. Patient states she has been having worsening shortness of breath and dyspnea on exertion for the past 3 days. She also endorses worsening bilateral lower extremity edema. She states she does not leave the house and has a home health nurse once a week. Over the past 3 days she has been having to take breaks after a few steps in her house due to shortness of breath. Her home health nurse visited and noticed her lower extremity edema had worsened. She came to the ER for further evaluation. She denies any changes in her diet or medication. She has not checked her weight in order to notice a change. She does not take diuretics at home. She denies history of coronary artery disease, [place], Stroke or diabetes. She states she has not undergone cardiac catheterization or a stress test. She is a non-smoker. 10/12/2021 Patient seen at bedside, no distress. She continues to have shortness of breath, but has improved. She continues to have lower extremity edema. She denies any chest pain. Limited echo revealed no change in EF 40-45%, mild MR, mild TR, mild pulmonary hypertension with an RVSP of 42 mmHg. Last revealed, INR 2.1, BUN 37, sCr 2.5. Patient atrial fibrillation controlled ventricular rate. 10/13/2021 Patient is seen today on the [facility] floor. She states that shortness of breath is getting better and she is not gasping for breath. She states she is urinating lots, Alvarado catheter is in place. She is ambulating only to chair and bed. Decreased lower extremity edema. She is concerned that she has not had a bowel movement, deferred to medicine. INR is 2.1. BUN 40 creatinine 2.38. Weight is down 9 kg. 10/14/2021 Patient states that she is feeling better today as far as breathing but has some shortness of breath like difficulty expanding her chest sensation. She is feeling tired today. She has only been ambulating from the bed to the chair and has Alvarado catheter in place. She is complaining of her feet itching and burning. INR is 2.0, pharmacy dosing. BUN 40 and creatinine 2.38. 10/15/2021 Patient examined at the bedside this morning. She denies chest pain or pressure. She reports improvement in her shortness of breath. She has been transitioned to oral lasix. INR 1.8. PHYSICAL EXAM: VITAL SIGNS: Reviewed. GENERAL: Well-developed in no acute distress. NECK: Supple. No JVD or thyromegaly LUNGS: Respirations even and unlabored. Lungs essentially clear to auscultation bilaterally. HEART: Irregular rate and rhythm. S1 and S2 heard. EXTREMITIES: Normal range of motion. No clubbing or cyanosis. Peripheral pulses intact. No lower extremity edema ASSESSMENT: Acute on chronic diastolic heart failure EF 45% Chronic persistent atrial fibrillation on coumadin Chronic DVT bilateral lower extremities History of pulmonary embolism 2008 following DVT in the knee Chronic kidney disease stage IV Cardiomyopathy, cannot rule out ischemic vs non-ischemic Morbid obesity History of osteoporosis with compression fractures of the lumbar spine Recent admission for covid-19 pneumonia in August 2021 PLAN: Continue current cardiac medications Continue Coumadin. Monitor INR. No CHARLES due to CKD Add hydralazine 10mg BID per Dr. Amos Patient is stable for discharge from a cardiac standpoint We will sign off. Please reconsult if needed. Nurse practitioner note has been reviewed by physician. Signing provider agrees with the documented findings, assessment, and plan of care. Objective - Vital Signs Vital signs: Vital Signs Temp 98.0 F 10/15/21 11:29 Pulse 72 10/15/21 11:29 Resp 16 10/15/21 11:29 BP 113/55 10/15/21 11:29 Pulse Ox 98 10/15/21 11:29 Intake & Output 10/14/21 10/15/21 10/15/21 18:59 06:59 18:59 Output Total 200 Balance -200 Weight 128 kg Output: Urine 200 Straight 200 Other: Voiding Method Indwelling Catheter Bedside Commode Bedside Commode # Voids 1 - Labs CBC & Chem 7: 10/15/21 06:44 10/15/21 06:44 Labs: Abnormal Lab Results - Last 24 Hours (Table) 10/15/21 10/15/21 10/15/21 Range/Units 06:44 06:44 06:44 RBC 3.51 L (3.80-5.40) m/uL Hgb 10.7 L (11.4-16.0) gm/dL MCV 102.5 H (80.0-100.0) fL MCHC 29.7 L (31.0-37.0) g/dL RDW 16.8 H (11.5-15.5) % Neutrophils # 7.8 H (1.3-7.7) k/uL PT 17.5 H (9.0-12.0) sec INR 1.8 H (<1.2) BUN 46.4 H (9.0-27.0) mg/dL Creatinine 2.6 H (0.6-1.5) mg/dL Est GFR (CKD-EPI)AfAm 20.4 L (60.0-200.0) Est GFR (CKD-EPI)NonAf 17.6 L (60.0-200.0)
[2021-10-15] MEDS ORDERED: hydrALAZINE HCL 10 MG TAB PO SCH (12:30)
--- NOTE | 2021-10-15 14:05 | P.DS ---
Providers Date of admission: 10/10/21 22:27 Expected date of discharge: 10/15/21 Attending physician: Josh Madden MD Primary care physician: Physician Nonstaff Hospital Course: Acute on chronic combined systolic and diastolic CHF exacerbation, EF 40-45% -Patient admitted to inpatient, telemetry. Cardiology was consulted, and recommended IV diuresis. Pts UOP was extremely responsive to lasix, and patient lost a total of ~13kg+ of water weight across hospitalization. Echocardiogram redemonstrated findings of moderately reduced EF, and diastolic dysfunction. Pts exercise tolerance did improve with diuresis. She was discharged with new medication for oral lasix, and with cardiology follow up. She was provided with home care services on discharge. Chronic LE DVTs Chronic kidney disease IV Permanent A. fib -Added bicarb to home regimen, as well as lasix. Otherwise, no changes. I spent 38 minutes coordinating this complex discharge. Assessment: Gen: awake, alert HEENT: normocephalic, atraumatic, good hearing acuity, moist mucous membranes Resp: good air exchange, breathing comfortably with no accessory muscle use CVS: good distal perfusion x 4, GI: soft, NTTP, ND : no SPT, no CVAT, esqueda catheter is present MSK: Bilateral pitting edema, no clubbing Neuro: non-focal, moving all extremities Psych: cooperative, euthymic mood Patient Condition at Discharge: Good Plan - Discharge Summary Discharge Rx Participant: No New Discharge Prescriptions: New Furosemide [Lasix] 40 mg PO BID@0900,1600 #60 tab Sodium Bicarbonate Tab 650 mg PO BID #60 tab hydrALAZINE HCL [Apresoline] 10 mg PO BID #60 tab Continue traMADol HCL [Tramadol HCl] 100 mg PO BID Allopurinol 100 mg PO BID Warfarin [Coumadin] 2.5 mg PO MOTUTHFRSA Metoprolol Tartrate 25 mg PO BID #60 tab Gabapentin [Neurontin] 100 mg PO BID Cholecalciferol [Vitamin D3 (25 Mcg = 1000 Iu)] 50 mcg PO DAILY Folic Acid 0.8 mg PO DAILY Discharge Medication List Allopurinol 100 mg PO BID 07/21/14 [History] Warfarin [Coumadin] 2.5 mg PO MOTUTHFRSA 07/21/14 [History] traMADol HCL [Tramadol HCl] 100 mg PO BID 07/21/14 [History] Metoprolol Tartrate 25 mg PO BID #60 tab 02/04/18 [Rx] Gabapentin [Neurontin] 100 mg PO BID 07/10/18 [History] Cholecalciferol [Vitamin D3 (25 Mcg = 1000 Iu)] 50 mcg PO DAILY 10/10/21 [History] Folic Acid 0.8 mg PO DAILY 10/10/21 [History] Furosemide [Lasix] 40 mg PO BID@0900,1600 #60 tab 10/15/21 [Rx] Sodium Bicarbonate Tab 650 mg PO BID #60 tab 10/15/21 [Rx] hydrALAZINE HCL [Apresoline] 10 mg PO BID #60 tab 10/15/21 [Rx] Follow up Appointment(s)/Referral(s): Andrew Lees DO [STAFF PHYSICIAN] - 10/31/21 3:00 pm [facility], [NON-STAFF] - 1 Week Noa Moran MD [REFERRING] - 1-2 days (office is closed.patient will have to schedule own appt.) Patient Instructions/Handouts: Furosemide (By mouth), Hydralazine (By mouth), Sodium Bicarbonate (By mouth), Heart Failure (DC), Chronic Kidney Disease (DC) Discharge Disposition: HOME WITH HOME HEALTH SERVICES
[2021-10-15] MEDS ORDERED: WARFARIN 2 MG TAB PO ONE (18:00)
== END 2021-10-15 14:10 | disposition home or self-care (01) | DRG 291 ==
LOC: EC 19:54 → 5NMEDONC 22:27
PROVIDERS: ADMIT Internal Medicine; ATTEND Internal Medicine
DX: I13.0 Hypertensive heart and chronic kidney disease with heart failure and stage 1 through stage 4 chronic kidney disease, or unspecified chronic kidney disease (principal); I50.43 Acute on chronic combined systolic (congestive) and diastolic (congestive) heart failure; I48.21 Permanent atrial fibrillation; N18.4 Chronic kidney disease, stage 4 (severe); I82.533 Chronic embolism and thrombosis of popliteal vein, bilateral; Z68.43 Body mass index [BMI] 50.0-59.9, adult; I42.9 Cardiomyopathy, unspecified; Z20.822 Contact with and (suspected) exposure to COVID-19; Z86.16 Personal history of COVID-19; E66.01 Morbid (severe) obesity due to excess calories; M81.0 Age-related osteoporosis without current pathological fracture; I87.8 Other specified disorders of veins; I27.20 Pulmonary hypertension, unspecified; I08.1 Rheumatic disorders of both mitral and tricuspid valves; D53.9 Nutritional anemia, unspecified; M10.9 Gout, unspecified; F32.A Depression, unspecified; I87.2 Venous insufficiency (chronic) (peripheral); Z79.01 Long term (current) use of anticoagulants; Z79.899 Other long term (current) drug therapy; Z82.49 Family history of ischemic heart disease and other diseases of the circulatory system; Z85.42 Personal history of malignant neoplasm of other parts of uterus; Z86.711 Personal history of pulmonary embolism; Z87.01 Personal history of pneumonia (recurrent); Z90.710 Acquired absence of both cervix and uterus; Z88.6 Allergy status to analgesic agent; Z88.5 Allergy status to narcotic agent; Z15.89 Genetic susceptibility to other disease; Z87.81 Personal history of (healed) traumatic fracture
CPT/HCPCS: 36415; 71046; 80048; 80053; 83735; 83880; 84484; 85025; 85027; 85379; 85610; 85730; 87635; 93005; 93308; 93970; 99285

== ENCOUNTER 2021-12-09 02:08 | Inpatient (IN) | payer MEDICARE, OTHER ==
[2021-12-09] MEDS ORDERED: MORPHINE SULFATE 4 MG/ML SYRINGE IV STA (02:19)
[2021-12-09] MEDS ORDERED: SODIUM CHLORIDE 0.9% 500 ML 500 ML IV STA (02:19)
--- NOTE | 2021-12-09 02:20 | ED ---
Abdominal Pain HPI - General Chief Complaint: Abdominal Pain Stated Complaint: Shortness of Breath, Hernia Time Seen by Provider: 12/09/21 02:12 Source: patient, EMS, RN notes reviewed, old records reviewed Mode of arrival: EMS Limitations: no limitations - History of Present Illness Initial Comments: This is a 71-year-old female with severe abdominal pain. Nausea no vomiting. Patient states she has known hernia known abdominal wall hernia no prior evaluation states she can usually reduce it by despite herself. She thinks she may have to abdominal hernias. No prior abdominal surgery she did have a hysterectomy. Vagina. Patient otherwise a complex medical history. MD Complaint: abdominal pain -: days(s) Location: periumbilical, epigastric Radiation: epigastric Migration to: epigastric Severity: severe Severity scale (1-10): 8 Quality: cramping, stabbing, aching Consistency: constant Improves With: nothing Worsens With: nothing Context: other (known hernia) Associated Symptoms: nausea Treatments Prior to Arrival: other (none) - Related Data Home Medications Medication Instructions Recorded Confirmed Allopurinol 100 mg PO BID 07/21/14 10/10/21 Warfarin [Coumadin] 2.5 mg PO MOTUTHFRSA 07/21/14 10/10/21 traMADol HCL [Tramadol HCl] 100 mg PO BID 07/21/14 10/10/21 Gabapentin [Neurontin] 100 mg PO BID 07/10/18 10/10/21 Cholecalciferol [Vitamin D3 (25 50 mcg PO DAILY 10/10/21 10/10/21 Mcg = 1000 Iu)] Folic Acid 0.8 mg PO DAILY 10/10/21 10/10/21 Previous Rx's Medication Instructions Recorded Metoprolol Tartrate 25 mg PO BID #60 tab 02/04/18 Furosemide [Lasix] 40 mg PO BID@0900,1600 #60 tab 10/15/21 Sodium Bicarbonate Tab 650 mg PO BID #60 tab 10/15/21 hydrALAZINE HCL [Apresoline] 10 mg PO BID #60 tab 10/15/21 Allergies Allergy/AdvReac Type Severity Reaction Status Date / Time aspirin Allergy Rash/Hives Verified 10/10/21 23:25 codeine Allergy Itching Verified 10/10/21 23:25 Review of Systems ROS Statement: Those systems with pertinent positive or pertinent negative responses have been documented in the HPI. ROS Other: All systems not noted in ROS Statement are negative. Past Medical History Past Medical History: Atrial Fibrillation, Blood Disorder, Cancer, Heart Failure, Deep Vein Thrombosis (DVT), Hypertension, Osteoarthritis (OA), Pulmonary Embolus (PE), Renal Disease Additional Past Medical History / Comment(s): mthfr, uterine cancer, gout, anemia. uses 4 prong cane OR WALKER when up. BACK PAIN, chronic kidney disease History of Any Multi-Drug Resistant Organisms: None Reported Past Surgical History: Hysterectomy, Orthopedic Surgery Additional Past Surgical History / Comment(s): plate and screws in right ankle, picc line-since removed, cortisone injections to knees Past Anesthesia/Blood Transfusion Reactions: No Reported Reaction Additional Past Anesthesia/Blood Transfusion Reaction / Comment(s): past blood transfusions-no reactions Past Psychological History: Depression Smoking Status: Never smoker Past Alcohol Use History: None Reported Past Drug Use History: None Reported - Past Family History Mother Family Medical History: Cancer Additional Family Medical History / Comment(s): BREAST Father Family Medical History: Coronary Artery Disease (CAD) General Exam General appearance: alert, in no apparent distress Head exam: Present: atraumatic, normocephalic, normal inspection Eye exam: Present: normal appearance, PERRL, EOMI. Absent: scleral icterus, con junctival injection, periorbital swelling ENT exam: Present: normal exam, mucous membranes moist Neck exam: Present: normal inspection. Absent: tenderness, meningismus, lymphadenopathy Respiratory exam: Present: normal lung sounds bilaterally. Absent: respiratory distress, wheezes, rales, rhonchi, stridor Cardiovascular Exam: Present: normal rhythm, tachycardia, normal heart sounds. Absent: systolic murmur, diastolic murmur, rubs, gallop, clicks GI/Abdominal exam: Present: soft, distended, tenderness, normal bowel sounds, hernia (With loops of bowel unable to reduce). Absent: guarding, rebound, rigid Extremities exam: Present: normal inspection, full ROM, normal capillary refill. Absent: tenderness, pedal edema, joint swelling, calf tenderness Back exam: Present: normal inspection Neurological exam: Present: alert, oriented X3, CN II-XII intact Psychiatric exam: Present: normal affect, normal mood Skin exam: Present: warm, dry, intact, normal color. Absent: rash Course Vital Signs 12/09/21 02:09 Temperature 98.0 F Pulse Rate 112 H Respiratory 18 Rate Blood Pressure 143/94 O2 Sat by Pulse 95 Oximetry - Reevaluation(s) Reevaluation #1: 12/09/21 04:39 Medical record is reviewed Reevaluation #2: 12/09/21 04:39 Patient has difficulty control pain here in the ER Reevaluation #3: 12/09/21 04:39 Patient unable to reduce patient's hernia here in the ER Reevaluation #4: 12/09/21 04:39 Patient informed of results and questions answered - Consultations Consultation #1: Spoke with Dr. Amezcua regarding hernia he is agreeable to admit this patient Medical Decision Making - Medical Decision Making 71 female to the ER for evaluation. Patient Dese for evaluation of abdominal pain severe multiple hernias umbilical hernia and ventral wall hernia with small bowel loops. Patient be admitted for surgical evaluation and observation - Lab Data Result diagrams: 12/09/21 02:44 12/09/21 02:44 Lab Results 12/09/21 12/09/21 12/09/21 Range/Units 02:44 02:44 02:44 WBC 13.8 H (3.8-10.6) k/uL RBC 4.13 (3.80-5.40) m/uL Hgb 12.3 (11.4-16.0) gm/dL Hct 39.7 (34.0-46.0) % MCV 96.1 D (80.0-100.0) fL MCH 29.8 (25.0-35.0) pg MCHC 31.0 (31.0-37.0) g/dL RDW 16.1 H (11.5-15.5) % Plt Count 347 (150-450) k/uL MPV 7.4 Neutrophils % 92 % Lymphocytes % 6 % Monocytes % 2 % Eosinophils % 0 % Basophils % 0 % Neutrophils # 12.7 H (1.3-7.7) k/uL Lymphocytes # 0.8 L (1.0-4.8) k/uL Monocytes # 0.3 (0-1.0) k/uL Eosinophils # 0.0 (0-0.7) k/uL Basophils # 0.0 (0-0.2) k/uL Hypochromasia Moderate Anisocytosis Slight Sodium 137 (137-145) mmol/L Potassium 4.1 (3.5-5.1) mmol/L Chloride 100 (98-107) mmol/L Carbon Dioxide 26 (22-30) mmol/L Anion Gap 11 mmol/L BUN 39 H (7-17) mg/dL Creatinine 2.13 H (0.52-1.04) mg/dL Est GFR (CKD-EPI)AfAm 26 (>60 ml/min/1.73 sqM) Est GFR (CKD-EPI)NonAf 22 (>60 ml/min/1.73 sqM) Glucose 153 H (74-99) mg/dL Plasma Lactic Acid Ramón 2.0 (0.7-2.0) mmol/L Calcium 9.4 (8.4-10.2) mg/dL Total Bilirubin 0.6 (0.2-1.3) mg/dL AST 20 (14-36) U/L ALT 11 (4-34) U/L Alkaline Phosphatase 54 (38-126) U/L Total Protein 7.2 (6.3-8.2) g/dL Albumin 3.8 (3.5-5.0) g/dL Amylase 70 (30-110) U/L Lipase 32 (23-300) U/L - Radiology Data Radiology results: report reviewed (CT head and pelvis positive for umbilical hernia as well as ventral hernia with small abdominal bowel), image reviewed Disposition Clinical Impression: Dyspnea, Morbid obesity, Umbilical hernia, Ventral hernia, Abdominal pain, Weakness Disposition: ADMITTED IP TO THIS [facility] Condition: Good Is patient prescribed a controlled substance at d/c from ED?: No Referrals: Danielle Murdock NPC [Primary Care Provider] - 1-2 days
--- NOTE | 2021-12-09 03:08 | CT ---
EXAMINATION TYPE: CT abdomen pelvis wo con DATE OF EXAM: 12/09/2021 COMPARISON: 08/30/2014 HISTORY: Umbilcal hernia CT DLP: 1954.2 mGycm Automated exposure control for dose reduction was used. There are mild bilateral pleural effusions. Heart appears enlarged. There is no pericardial effusion. There is some linear infiltrate and atelectasis at both lung bases. The stomach is intact. The gallbladder is dilated and measures 4.8 cm in diameter. The bile ducts are not dilated. Liver shows no focal defect. There is no pancreatic mass. Spleen is intact. There is no adrenal mass. Kidneys have normal size. There is some bilateral mild renal cortical thinn ing. There are bilateral renal cortical cysts measuring up to 6 cm. Cysts are mostly on the right patricio e. There is no evidence of solid renal mass. There is left side abdominal wall hernia that contains m ultiple loops of bowel. The hernia measures approximately 21 cm in width. The opening on the abdomina l wall is 5 cm. There are no significant dilated bowel loops to suggest the all obstruction. There is no free air. There is no ascites. Urinary bladder distends smoothly. There is no evidence of pelvic mass. Appendix not seen. The lumbar vertebra show levoscoliotic deformity at the thoracolumbar junction. There is degenerative disc space narrowing and spur formation. There is no significant compression fracture. The bony pelv is is intact. IMPRESSION: Very large left lower anterior abdominal wall ventral hernia containing multiple loops of bowel. No s ign of a bowel obstruction. Renal atrophy. There is apparent reduction of the large fat-containing umbilical hernia compared to o ld exam. The left-sided abdominal wall hernia is new compared to old exam. Dilated gallbladder suggestive of gallbladder dysfunction or cholecystitis also present on old exam. There are mild bilateral pleural effusions that could relate to some chronic congestive heart failure . There is some infiltrate or atelectasis at the lung bases. Thoracic abnormalities are new compared to old exam.
[2021-12-09 03:12] LABS: Anisocytosis Slight; Basophils % (A) 0 %; Eosinophils % (A) 0 %; HCT 39.7 % (34.0-46.0); HGB 12.3 gm/dL (11.4-16.0); Hypochromasia Moderate; Lymphocytes # (A) 0.8 k/uL (1.0-4.8); Lymphocytes % (A) 6 %; MCH 29.8 pg (25.0-35.0); Mean Platelet Volume 7.4; Monocytes # (A) 0.3 k/uL (0-1.0); Monocytes % (A) 2 %; Neutrophils # (A) 12.7 k/uL (1.3-7.7); Neutrophils % (A) 92 %; Platelet Count 347 k/uL (150-450); RBC 4.13 m/uL (3.80-5.40); RDW 16.1 % (11.5-15.5); WBC 13.8 k/uL (3.8-10.6)
[2021-12-09 03:15] LABS: MCV 96.1 fL (80.0-100.0)
[2021-12-09 03:16] LABS: Albumin 3.8 g/dL (3.5-5.0); Calcium 9.4 mg/dL (8.4-10.2); Potassium 4.1 mmol/L (3.5-5.1); Total Bilirubin 0.6 mg/dL (0.2-1.3); Total Protein 7.2 g/dL (6.3-8.2)
[2021-12-09] MEDS ORDERED: HYDROmorphone 1 MG/ML 1 ML SYRINGE IVP STA (03:41)
[2021-12-09] MEDS ORDERED: NALOXONE 0.4 MG/ML 1 ML VIAL IV PRN (04:44)
[2021-12-09] MEDS ORDERED: LORazepam 2 MG/ML INJ IV PRN (04:44)
[2021-12-09] MEDS ORDERED: SODIUM CHLORIDE 0.9% 1,000 ML IV SCH (04:45)
[2021-12-09] MEDS ORDERED: PIPERACILLIN-TAZOBACTAM 3.375 GM in SODIUM CHLORIDE 0.9% 100 ML IVPB SCH (06:00)
[2021-12-09] MEDS: HYDROmorphone 1 MG/ML 1 ML SYRINGE IVP PRN ×2 (06:14→12:52)
[2021-12-09] MEDS: PANTOPRAZOLE 40 MG/10 ML VIAL IV SCH (08:00)
[2021-12-09] MEDS: GABAPENTIN 100 MG CAP PO SCH ×2 (08:23→20:29)
[2021-12-09] MEDS: METOPROLOL TARTRATE 12.5 MG TAB PO SCH ×2 (08:23→20:29)
[2021-12-09] MEDS ORDERED: FOLIC ACID 1 MG TAB PO SCH (09:00)
[2021-12-09] MEDS ORDERED: allopurinoL 100 MG TAB PO SCH (09:00)
[2021-12-09] MEDS ORDERED: FUROSEMIDE 40 MG TAB PO SCH (09:00)
--- NOTE | 2021-12-09 09:26 | P.NPCON ---
History of Present Illness - Reason for Consult chronic renal failure - History of Present Illness Reason for consultation: Chronic kidney disease History of present illness: Patient is a 71-year-old female seen in renal consultation for chronic kidney disease. Patient has chronic kidney disease stage IV. Baseline creatinine in the range of 2-2.5 secondary to cardiorenal syndrome. Patient has systolic CHF with ejection fraction of 40-45%. She takes Lasix 40 mg once daily at home. Patient presents to the hospital due to abdominal pain. She does admit to vomiting. No diarrhea. Patient states she has abdominal wall hernia. She is able to reduce on her own but was unable to do so yesterday. Surgery has been consulted. Denies chest pain or shortness of breath. Has been voiding. No hematuria. Blood pressure stable. She is currently receiving normal saline at 1 30 mL an hour. She also received a liter bolus of normal saline in the ER. Denies use of nonsteroidals. No history of diabetes. Vital signs are stable. General: On nasal cannula. HEENT: Head exam is unremarkable. LUNGS: Breath sounds decreased. HEART: Tachycardic. ABDOMEN: Soft, obese. EXTREMITITES: 1+ edema. Past Medical History Past Medical History: Atrial Fibrillation, Blood Disorder, Cancer, Heart Failure, Deep Vein Thrombosis (DVT), Hypertension, Osteoarthritis (OA), Pu lmonary Embolus (PE), Renal Disease Additional Past Medical History / Comment(s): mthfr, uterine cancer, gout, anemia. uses 4 prong cane OR WALKER when up. BACK PAIN, chronic kidney disease History of Any Multi-Drug Resistant Organisms: None Reported Past Surgical History: Hysterectomy, Orthopedic Surgery Additional Past Surgical History / Comment(s): plate and screws in right ankle, picc line-since removed, cortisone injections to knees Past Anesthesia/Blood Transfusion Reactions: No Reported Reaction Additional Past Anesthesia/Blood Transfusion Reaction / Comment(s): past blood transfusions-no reactions Past Psychological History: Depression Additional Psychological History / Comment(s): PAST HISTORY DEPRESSION (2018) no longer takes antidepressants Smoking Status: Never smoker Past Alcohol Use History: None Reported Past Drug Use History: None Reported - Past Family History Mother Family Medical History: Cancer Additional Family Medical History / Comment(s): BREAST Father Family Medical History: Coronary Artery Disease (CAD) Medications and Allergies Home Medications Medication Instructions Recorded Confirmed Type Allopurinol 100 mg PO BID 07/21/14 12/09/21 History Warfarin [Coumadin] 2.5 mg PO MOTUTHFRSA 07/21/14 12/09/21 History traMADol HCL [Tramadol HCl] 100 mg PO BID 07/21/14 12/09/21 History Gabapentin [Neurontin] 100 mg PO BID 07/10/18 12/09/21 History Cholecalciferol [Vitamin D3 (25 50 mcg PO DAILY 10/10/21 12/09/21 History Mcg = 1000 Iu)] Folic Acid 0.8 mg PO DAILY 10/10/21 12/09/21 History Furosemide [Lasix] 40 mg PO DAILY 12/09/21 12/09/21 History Metoprolol Tartrate 12.5 mg PO BID 12/09/21 12/09/21 History Allergies Allergy/AdvReac Type Severity Reaction Status Date / Time aspirin Allergy Rash/Hives Verified 10/10/21 23:25 codeine Allergy Itching Verified 10/10/21 23:25 Physical Exam Vitals: Vital Signs Temp Pulse Pulse Resp BP BP Pulse Ox 12/09/21 05:54 97.9 F 129 H 18 128/82 98 12/09/21 05:47 112 H 18 140/85 95 12/09/21 04:15 98 18 155/88 96 12/09/21 02:09 98.0 F 112 H 18 143/94 95 Intake and Output 12/08/21 12/09/21 12/09/21 22:59 06:59 14:59 Other: Voiding Method Diaper Incontinent External Catheter Weight 129.274 kg Results - Lab Results Most recent lab results Calcium 9.4 mg/dL (8.4-10.2) 12/09/21 02:44 12/09/21 02:44 12/09/21 02:44 Assessment and Plan Plan: Assessment: 1. Chronic kidney disease stage IV with baseline creatinine in the range of 2- 2.5 secondary to cardiorenal syndrome. Creatinine 2.13 today. No proteinuria on UA done October 2021. No hydronephrosis noted on CAT scan. 2. Abdominal wall hernia. Surgery consulted. 3. Chronic systolic CHF with ejection fraction of 40-45%. Plan: Hep-Lock IV fluids. Resume Lasix 40 mg orally once daily. Avoid nephrotoxins. Continue to monitor renal function and urine output. Thank you for the consultation. I will continue to follow the patient with you during her hospital stay.
[2021-12-09] MEDS ORDERED: HYDROcodone/APAP 5-325MG 1 EACH TAB PO PRN (09:28)
--- NOTE | 2021-12-09 09:32 | P.HPIM ---
History of Present Illness H&P Date: 12/09/21 Chief Complaint: abdominal pain Patient is a 71-year-old female with a history of A. fib anticoagulated on Coumadin, history of prior pulmonary embolism and DVT with known MTHFR, systolic congestive heart failure with ejection fraction 45-50% (recovered from 30-35%) and chronic kidney disease stage IV following with nephrology on an outpatient basis who presented for abdominal wall hernia that is no longer reducible. On arrival she was found to be tachycardic. Laboratory analysis showed a white blood cell count of 13.8, creatinine was near her baseline at 2.13 consistent with her chronic kidney disease stage IV, glucose was mildly elevated at 153 on the laboratory analysis is otherwise unremarkable. She underwent a CT abdomen and pelvis which demonstrated a large lower anterior abdominal wall ventral hernia containing multiple bowel loops without signs of obstruction. In the emergency department she was started on Zosyn, IV fluids, and pain medications. She was placed in observation for further surgical evaluation. Patient seen adnexamined at bedside. Has abdominal wall hernia that was reproducible until yesterday. Now having pain at the hernia site that wraps to her back. Had a bowel movement where she had to bare down and then noticed that it was no longer reducible. + nuasea with vomiting X 1. No dificulty with urination. + Shortness of breath after this incident. She uses a walker at baseline. She is independent with bathing and dressing as well as meal prep. She does have assistance with cleaning. She is able to walk for steroids at this time with physical therapy, but has been unable to leave her house. She is unable to walk a full flight of stairs. She denies any recent episodes of chest pain or syncope. Pertinent positives and negatives as discussed in HPI, a complete review of systems was performed and all other systems are negative. General: non toxic, no distress, appears at stated age, Obese Derm: warm, dry Head: atraumatic, normocephalic, symmetric Eyes: EOMI, no lid lag, anicteric sclera, pupils equal round reactive to light ENT: Nose and ears atraumatic, no thrush, no pharyngeal erythema Neck: No thyromegaly, no cervical lymphadenopathy, trachea midline, supple Mouth: no lip lesion, mucus membranes dry Cardiovascular: S1S2 tachy, no murmur, positive posterior tibial pulse bilateral, no edema, capillary refill less than 2 seconds Lungs: Decreased bs bilateral, no ronchi, no rales, no wheeze, no accessory muscle use Abdominal: soft, nontender to palpation outside the hernia area, non reducible hernia just to the left of the umbilicous, no guarding, no appreciable organomegaly, normal bowel sounds Ext: no gross muscle atrophy, muscle strength muscle strength 5 out of 5 in all 4 extremities, no contractures Neuro: CN II-XI grossly intact, light touch intact all 4 extremities, finger to nose within normal limits, Psych: Alert, oriented, appropriate affect Assessment/plan: Strangulated abdominal wall hernia to the left of the umbilicus containing loops of bowel - NSQIP score for initial ventral hernia repair Serious complication PT- 8.2 average 6.5 Cardiac complication PT 0.5 average 0.4 Pt 0.6 average 0.3 -Nothing by mouth -Surgery consultation -Hold Coumadin until evaluated by surgery -Antiemetics -Pain medications - Zosyn Atrial fibrillation anticoagulated with Coumadin at baseline Systolic cardiomyopathy with ejection fraction 45-50%, appears clinically compensated -Continue with oral Lasix -Not chronically on CHARLES inhibitor, resume home metoprolol -Continue with telemetry -Obtain EKG Chronic kidney disease stage IV -Creatinine appears at baseline -Follow kidney function closely -Resume Lasix -Nephrology recommendations Hypercoaguability with MTHFR -If patient is to undergo surgery will hold Coumadin and give prophylactic Lo venox Severe obesity with BMI 52.1 The patient is placed in observation with an anticipated less than 2 midnight stay for evaluation of strangulated hernia DVT prophylaxis: Coumadin vs lovenox Anticipated discharge date: in 1-2 days if does not require surgery if requires surgery will likely need inpatient care Anticipated discharge place: pending clinical course A total of 75 minutes was spent on the care of this complex patient more than 50% of the time was spent in counseling and care coordination. Past Medical History Past Medical History: Atrial Fibrillation, Blood Disorder, Cancer, Heart Failure, Deep Vein Thrombosis (DVT), Hypertension, Osteoarthritis (OA), Pulmonary Embolus (PE), Renal Disease Additional Past Medical History / Comment(s): mthfr, uterine cancer, gout, anemia. uses 4 prong cane OR WALKER when up. BACK PAIN, chronic kidney disease History of Any Multi-Drug Resistant Organisms: None Reported Past Surgical History: Hysterectomy, Orthopedic Surgery Additional Past Surgical History / Comment(s): plate and screws in right ankle, picc line-since removed, cortisone injections to knees Past Anesthesia/Blood Transfusion Reactions: No Reported Reaction Additional Past Anesthesia/Blood Transfusion Reaction / Comment(s): past blood transfusions-no reactions Past Psychological History: Depression Additional Psychological History / Comment(s): PAST HISTORY DEPRESSION (2018) no longer takes antidepressants Smoking Status: Never smoker Past Alcohol Use History: None Reported Past Drug Use History: None Reported - Past Family History Mother Family Medical History: Cancer Additional Family Medical History / Comment(s): BREAST Father Family Medical History: Coronary Artery Disease (CAD) Medications and Allergies Home Medications Medication Instructions Recorded Confirmed Type Allopurinol 100 mg PO BID 07/21/14 12/09/21 History Warfarin [Coumadin] 2.5 mg PO MOTUTHFRSA 07/21/14 12/09/21 History traMADol HCL [Tramadol HCl] 100 mg PO BID 07/21/14 12/09/21 History Gabapentin [Neurontin] 100 mg PO BID 07/10/18 12/09/21 History Cholecalciferol [Vitamin D3 (25 50 mcg PO DAILY 10/10/21 12/09/21 History Mcg = 1000 Iu)] Folic Acid 0.8 mg PO DAILY 10/10/21 12/09/21 History Furosemide [Lasix] 40 mg PO DAILY 12/09/21 12/09/21 History Metoprolol Tartrate 12.5 mg PO BID 12/09/21 12/09/21 History Allergies Allergy/AdvReac Type Severity Reaction Status Date / Time aspirin Allergy Rash/Hives Verified 10/10/21 23:25 codeine Allergy Itching Verified 10/10/21 23:25 Physical Exam Osteopathic Statement: *. No significant issues noted on an osteopathic structural exam other than those noted in the History and Physical/Consult. Vitals: Vital Signs Temp Pulse Pulse Resp BP BP Pulse Ox 12/09/21 05:54 97.9 F 129 H 18 128/82 98 12/09/21 05:47 112 H 18 140/85 95 12/09/21 04:15 98 18 155/88 96 12/09/21 02:09 98.0 F 112 H 18 143/94 95 Intake and Output 03/05/22 03/06/22 03/06/22 22:59 06:59 14:59 Other: Voiding Method Diaper Incontinent External Catheter Weight 129.274 kg Results CBC & Chem 7: 12/09/21 02:44 12/09/21 02:44 Labs: Abnormal Lab Results - Last 24 Hours (Table) 12/09/21 12/09/21 Range/Units 02:44 02:44 WBC 13.8 H (3.8-10.6) k/uL RDW 16.1 H (11.5-15.5) % Neutrophils # 12.7 H (1.3-7.7) k/uL Lymphocytes # 0.8 L (1.0-4.8) k/uL BUN 39 H (7-17) mg/dL Creatinine 2.13 H (0.52-1.04) mg/dL Glucose 153 H (74-99) mg/dL Thrombosis Risk Factor Assmnt - Choose All That Apply Each Factor Represents 1 point: Age 41-60 years Each Risk Factor Represents 2 Points: Age 61-74 years Thrombosis Risk Factor Assessment Total Risk Factor Score: 3 Thrombosis Risk Factor Assessment Level: Moderate Risk
[2021-12-09 10:26] LABS: INR 1.74 (0.90-1.11); Prothrombin Time 19.2 sec (9.9-11.9)
[2021-12-09] MEDS: ONDANSETRON 4 MG/2 ML VIAL IVP PRN (12:51)
--- NOTE | 2021-12-09 13:00 | P.GSCN ---
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 She tells me that she's had a reducible ventral hernia for the past several decades, hasn't undergone attempted repair in the past. It's always been reducible but within the past 24 hours following an acute bout of constipation and she's had progressive pain in the area and has been unable to get it to reduce. She admits to nausea and nonbloody emesis over this timeframe, subjective chills without fever. Abdominal pain as been persistent. She has significant comorbidities including morbid obesity with BMI in excess of 50, a degree of congestive heart failure, atrial fibrillation, remote history of left lower extremity DVT and pulmonary embolus and hypercoagulability with MT HF R mutation. She is maintained on Coumadin with an INR of 1.74 on presentation. Laboratory studies further reveal a mild leukocytosis at 13.8, platelet count of 347, hemoglobin of 12.3 with normal MCV and MCH indices. RDW slightly high at 16.1. She has a documented history of stage IV chronic kidney disease, has not been on hemodialysis but does follow with nephrology. Serum electrolyte analysis shows a creatinine of 2.13, high glucose of 153 and all other indices otherwise normal including normal liver function studies normal range amylase and lipase. Computed tomography scan of the abdomen and pelvis shows a large ventral hernia with a neck at around 7 cm and involvements of a moderate amount of small bowel and mesentery without free fluid pneumatosis or free air. Review of Systems All systems: negative - Constitutional Reports as per HPI Past Medical History Past Medical History: Atrial Fibrillation, Blood Disorder, Cancer, Heart Failure, Deep Vein Thrombosis (DVT), Hypertension, Osteoarthritis (OA), Pulmonary Embolus (PE), Renal Disease Additional Past Medical History / Comment(s): mthfr, uterine cancer, gout, anem ia. uses 4 prong cane OR WALKER when up. BACK PAIN, chronic kidney disease History of Any Multi-Drug Resistant Organisms: None Reported Past Surgical History: Hysterectomy, Orthopedic Surgery Additional Past Surgical History / Comment(s): plate and screws in right ankle, picc line-since removed, cortisone injections to knees Past Anesthesia/Blood Transfusion Reactions: No Reported Reaction Additional Past Anesthesia/Blood Transfusion Reaction / Comm: past blood transfusions-no reactions Past Psychological History: Depression Additional Psychological History / Comment(s): PAST HISTORY DEPRESSION (2018) no longer takes antidepressants Smoking Status: Never smoker Past Alcohol Use History: None Reported Past Drug Use History: None Reported - Past Family History Mother Family Medical History: Cancer Additional Family Medical History / Comment(s): BREAST Father Family Medical History: Coronary Artery Disease (CAD) Medications and Allergies Home Medications Medication Instructions Recorded Confirmed Type Allopurinol 100 mg PO BID 07/21/14 12/09/21 History Warfarin [Coumadin] 2.5 mg PO MOTUTHFRSA 07/21/14 12/09/21 History traMADol HCL [Tramadol HCl] 100 mg PO BID 07/21/14 12/09/21 History Gabapentin [Neurontin] 100 mg PO BID 07/10/18 12/09/21 History Cholecalciferol [Vitamin D3 (25 50 mcg PO DAILY 10/10/21 12/09/21 History Mcg = 1000 Iu)] Folic Acid 0.8 mg PO DAILY 10/10/21 12/09/21 History Furosemide [Lasix] 40 mg PO DAILY 12/09/21 12/09/21 History Metoprolol Tartrate 12.5 mg PO BID 12/09/21 12/09/21 History Allergies Allergy/AdvReac Type Severity Reaction Status Date / Time aspirin Allergy Rash/Hives Verified 10/10/21 23:25 codeine Allergy Itching Verified 10/10/21 23:25 Surgical - Exam Osteopathic Statement: *. No significant issues noted on an osteopathic stru ctural exam other than those noted in the History and Physical/Consult. Vital Signs Temp Pulse Resp BP Pulse Ox 98.0 F 112 H 18 143/94 95 12/09/21 02:09 12/09/21 02:09 12/09/21 02:09 12/09/21 02:09 12/09/21 02:09 - General no distress, obese - Eyes PERRL - ENT normal mucosa, no hearing loss, no congestion - Neck trachea midline - Respiratory normal expansion, normal respiratory effort, clear to auscultation - Cardiovascular Rhythm: irregularly irregular - Abdomen There is mild to moderate diffuse tenderness to palpation more severe tenderness over the incarcerated umbilical hernia. There are overlying skin changes at the umbilicus with a developing necrosis and adjacent hyperemia. I'm unable to get the hernia to reduce with aggressive Trendelenburg and taxis. - Neurologic normal coordination - Psychiatric oriented to time, oriented to person, oriented to place, memory intact Results - Labs 12/09/21 02:44 12/09/21 02:44 Abnormal Lab Results - Last 24 Hours (Table) 12/09/21 12/09/21 12/09/21 Range/Units 02:44 02:44 05:57 WBC 13.8 H (3.8-10.6) k/uL RDW 16.1 H (11.5-15.5) % Neutrophils # 12.7 H (1.3-7.7) k/uL Lymphocytes # 0.8 L (1.0-4.8) k/uL PT 19.2 H (9.9-11.9) sec INR 1.74 H (0.90-1.11) BUN 39 H (7-17) mg/dL Creatinine 2.13 H (0.52-1.04) mg/dL Glucose 153 H (74-99) mg/dL Diabetes panel 12/09/21 Range/Units 02:44 Sodium 137 (137-145) mmol/L Potassium 4.1 (3.5-5.1) mmol/L Chloride 100 (98-107) mmol/L Carbon Dioxide 26 (22-30) mmol/L BUN 39 H (7-17) mg/dL Creatinine 2.13 H (0.52-1.04) mg/dL Glucose 153 H (74-99) mg/dL Calcium 9.4 (8.4-10.2) mg/dL AST 20 (14-36) U/L ALT 11 (4-34) U/L Alkaline Phosphatase 54 (38-126) U/L Total Protein 7.2 (6.3-8.2) g/dL Albumin 3.8 (3.5-5.0) g/dL Calcium panel 12/09/21 Range/Units 02:44 Calcium 9.4 (8.4-10.2) mg/dL Albumin 3.8 (3.5-5.0) g/dL Pituitary panel 12/09/21 Range/Units 02:44 Sodium 137 (137-145) mmol/L Potassium 4.1 (3.5-5.1) mmol/L Chloride 100 (98-107) mmol/L Carbon Dioxide 26 (22-30) mmol/L BUN 39 H (7-17) mg/dL Creatinine 2.13 H (0.52-1.04) mg/dL Glucose 153 H (74-99) mg/dL Calcium 9.4 (8.4-10.2) mg/dL Adrenal panel 12/09/21 Range/Units 02:44 Sodium 137 (137-145) mmol/L Potassium 4.1 (3.5-5.1) mmol/L Chloride 100 (98-107) mmol/L Carbon Dioxide 26 (22-30) mmol/L BUN 39 H (7-17) mg/dL Creatinine 2.13 H (0.52-1.04) mg/dL Glucose 153 H (74-99) mg/dL Calcium 9.4 (8.4-10.2) mg/dL Total Bilirubin 0.6 (0.2-1.3) mg/dL AST 20 (14-36) U/L ALT 11 (4-34) U/L Alkaline Phosphatase 54 (38-126) U/L Total Protein 7.2 (6.3-8.2) g/dL Albumin 3.8 (3.5-5.0) g/dL - Imaging CT scan - abdomen: report reviewed, image reviewed Assessment and Plan Assessment: 71-year-old lady with incarcerated umbilical hernia with small bowel and mesentery involvement, possible early strangulation given the skin changes and overlying necrosis at the umbilicus. Computed tomography scan was interpreted as negative for obstruction by the patient is having issues with persistent n ausea and emesis. She was somewhat tachycardic on presentation but normotensive. Has been started empirically on antibiotics. Oral anticoagulation on Coumadin for history of DVT, pulmonary embolus, atrial fibrillation and hypercoagulable state with MCH FR mutation. At risk for bleeding. Super morbid obesity with BMI in excess of 50. Chronic congestive heart failure, stage IV chronic kidney disease. Plan: Options for treatment were discussed with the patient and her son at length at bedside. She is certainly not an ideal surgical candidate but with the developi ng necrosis at the umbilicus, pain and incarcerated nature of the hernia I don't think we have much choice but to pursue repair. She was advised that she is at an increased risk for intraoperative and perioperative heart attack, stroke, and all manner of post and perioperative complications including bleeding, infection and failure of hernia repair. With the necrotic skin I don't think it's cannot be jamil to leave a permanent mesh in place. She is at a higher risk for recurrence with primary repair especially in the setting of morbid obesity. She is aware of this risk and would like to move forward with urgent hernia repair this afternoon following administration of 2 units FFP to mitigates intraoperative bleeding risk in the setting of oral anticoagulation with Coumadin and INR greater than 1.7. There is a decent chance that she may not be extubated following surgery and may need to be kept in the ICU for a period of time for ventilator support. If she is asked available postoperatively she should be okay to go back to the medical floor. She gave informed consent for the aforementioned interventions after discussion of risks, and alternatives to treatment. Time with Patient: Greater than 30
[2021-12-09] MEDS ORDERED: fentaNYL (PF) 50 MCG/ML 2 ML AMP ONE (14:57)
[2021-12-09] MEDS ORDERED: MIDAZOLAM 2 MG/2 ML VIAL ONE (14:57)
[2021-12-09] MEDS ORDERED: SUCCINYLCHOLINE CHLORIDE 100 MG/5 ML SYR IV ONE (14:57)
[2021-12-09] MEDS ORDERED: PROPOFOL 10 MG/ML 20 ML VIAL IV ONE (14:57)
[2021-12-09] MEDS ORDERED: VECURONIUM 10 MG VIAL IV ONE (14:57)
[2021-12-09] MEDS ORDERED: PHENYLEPHRINE-0.9% NACL SYG 1,000 MCG/10 ML SYRINGE ONE (14:57)
[2021-12-09] MEDS ORDERED: LACTATED RINGERS 1,000 ML IV ONE (15:25)
[2021-12-09] MEDS ORDERED: BUPIVACAIN-EPI 0.25%-1:200,000 30 ML VIAL SQ ONE (15:29)
[2021-12-09] MEDS ORDERED: LIDOCAINE 1% INJ 10MG/ML (20 ML MDV) SQ ONE (15:30)
[2021-12-09 16:32] LABS: Glucose,Whole Blood 99 mg/dL (75-99)
[2021-12-09] MEDS ORDERED: propofoL 100 ML IV ONE (16:36)
--- NOTE | 2021-12-09 16:45 | P.OP ---
Date of Procedure: 12/09/21 Preoperative Diagnosis: Incarcerated ventral hernia with skin necrosis Postoperative Diagnosis: Strangulated ventral hernia with skin necrosis and segmental small bowel necrosis with perforation, questionable viability of a 300 cm small bowel segment Procedure(s) Performed: Exploratory laparotomy with excision of umbilicus and hernia sac, segmental 30 cm small bowel resection, reduction of ventral hernia, application of Abthera temporary abdominal closure device Anesthesia: ALICE Surgeon: Chapincito Amezcua Estimated Blood Loss (ml): 30 Pathology: other (Umbilicus and hernia sac, 30 cm small bowel resection segment) Condition: critical Disposition: ICU Indications for Procedure: Patient is a 71-year-old lady who presented to [facility] emergency department and 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 She tells me it's been incarcerated for the past 24 hours following an acute bout of constipation. It's been present for several decades she hasn't undergone previous attempts at repair. Computed tomography scan of the pelvis and confirmed a ventral hernia without mention of small bowel obstruction no free air, no free fluid, no pneumatosis. A mild leukocytosis at around 14,000. She has a significant medical history for stage IV chronic kidney disease and cardiorenal syndrome as well as morbid obesity with BMI in excess of 50, hypercoagulable state with empty HF R mutation and atrial fibrillation with remote left lower extremity DVT and pulmonary embolus maintained on Coumadin. I was unable to get the hernia to reduce at bedside, the physical exam revealed skin necrosis at the umbilicus and the patient was quite tender over the area. It was felt that especially given skin necrosis nonoperative management is not in a be an option for her and despite risks of all manner of complications in the perioperative and postoperative timeframes in the setting of the aforementioned significant medical history patient wishes to move forward with the exploratory laparotomy, other indicated procedures. She gave informed consent for the same after discussion of risks, benefit alternatives treatment. INR was just above 1.7 preoperatively, she received 2 units of FFP during the course of the case to mitigate bleeding risk. Operative Findings: Full-thickness necrosis and perforation of small bowel, questionable viability of a 300 cm small bowel segment involved with incarcerated ventral hernia Description of Procedure: Patient was taken to the operative suite and placed in supine position. Following induction of general endotracheal anesthesia she was prepped and draped in sterile fashion. Local anesthesia field block was performed about the planned excision of necrotic umbilicus at midline with 1% lidocaine and quarter percent Marcaine with epinephrine solution. Elliptical is incision was made with Bovie over the incarcerated hernia and dissection carried out with the same through the dermis and soft tissue to the level of the hernia sac which was followed to the anterior fascia. The neck of the hernia was somewhat narrow and around 6 cm or so given the abundance of viscera incarcerated within. Hernia sac was entered sharply and peritoneum followed to the neck and the sac and overlying umbilicus and skin were excised and submitted to pathology. There was evidence of a small small bowel perforation with adjacent bile staining along the mesentery and an area of full-thickness necrosis of around 5 cm or so. There was around 300 cm of small bowel incarcerated within the hernia and after extending the defect a bit cephalad to relax tension on the neck it was clear that this segment showed a degree of vascular compromise with patchy hyperemia. The small bowel was observed over about 10 minutes or so while there was no peristalsis along the segment there were some areas that seemed to be getting reperfused with clearance of the congestive findings. Decision was made to resect the necrotic segment up to an area that does seem to be getting good blood flow and an approximately 30 cm segment was excised between Endo RAMOS try stapler purple loads and mesentery taken down with LigaSure. I suspect that the patient would not do well with a 300 cm small bowel resection and in my view and anastomosis would be unsafe as the patient was requiring pressors on the table to maintain systolics of 90. Decision was made to leave the bowel in discontinuity with plans for second look exploration in 24-48 hours. Bowel was reduced back into the abdominal cavity and Apthera temporary abdominal closure device placed connected to suction without leak. Patient was transferred to the ICU in critical condition but decreasing pressor requirement, intubated and sedated. We'll tentatively plan for second look tomorrow afternoon. In the meantime we should try to get her optimizes much as possible from a hemodynamic standpoint. The operative findings and our plans as outlined above were d iscussed with the patient's son.
[2021-12-09 17:21] LABS: ABG Base Excess 3.2 mmol/L; ABG HCO3 29 mmol/L (21-25); ABG Oxygen Saturation 99.1 % (94-97); ABG PCO2 55 mmHg (35-45); ABG PH 7.33 (7.35-7.45); ABG PO2 218 mmHg (83-108); ABG TCO2 31 mmol/L (19-24)
[2021-12-09 17:26] LABS: Allen Test Performed? no
--- NOTE | 2021-12-09 17:30 | P.PCN ---
Date of Procedure: 12/09/21 Preoperative Diagnosis: Hemodynamic instability requiring invasive monitoring and pressor support, strangulated ventral hernia with necrosis and perforation Postoperative Diagnosis: Same as above Procedure(s) Performed: Right subclavian triple-lumen central venous catheter placement Anesthesia: none Surgeon: Chapincito Amezcua Estimated Blood Loss (ml): 5 Pathology: none sent Condition: critical Disposition: ICU Indications for Procedure: Patient 71-year-old lady for whom I had to perform urgent abdominal exploration for strangulated ventral hernia. Operative findings revealed a long segment of questionable bowel as well as a more obvious area of necrosis and perforation. The frankly necrotic segment was resected given the length of the impaired small bowel was felt that second look would be in order to preserve the small intestine as much as possible. Patient has been maintained on Coumadin for hypercoagulable state and remote history of DVT and pulmonary embolus. She received 2 units of FFP preoperatively for an INR of around 1.7. She's required pressor support on the operating room table. No one has been able to obtain a second IV access and she only has a 20-gauge peripheral that has not been usable on transfer to the ICU. Internal jugular central venous catheter was not feasible by the anesthesia staff given a short neck and morbid obesity. As such the patient's in urgent need of stable central venous access for pressor support, medication administration and lab draws. Subclavian line placement was performed under implied consent and urgent conditions. Operative Findings: As above Description of Procedure: Patient was placed in Trendelenburg position and prepped and draped in sterile fashion. Breast tissue and right arm are retracted caudally. The subclavian vein was accessed inferior and lateral to the arch of the clavicle, dark red nonpulsatile blood aspirated and guidewire fed easily. Dilator was passed and exchanged for the pre-flushed triple lumen central venous catheter which was secured to the skin with 2-0 silk. All ports were noted to easily aspirate and flush with sterile saline. Sterile occlusive dressing was placed and a stat bedside portable chest x-ray obtained showing the catheter in good position without signs of postprocedure pneumothorax. Line is okay to use for all indications.
--- NOTE | 2021-12-09 17:37 | XR ---
EXAMINATION TYPE: XR chest 1V portable DATE OF EXAM: 12/09/2021 COMPARISON: 10/10/2021 HISTORY: Check tube placement TECHNIQUE: Single view FINDINGS: There is nasogastric tube with the tip over the lower esophagus at approximately T10 level. There is pulmonary airspace edema. There is right central venous catheter with tip in the right atri um. There is endotracheal tube 8 mm from the ravi. There is some blunting of the costophrenic angle s. IMPRESSION: There is pulmonary edema which is increased compared to old exam. Nasogastric tube is not in the stomach. Endotracheal tube is low and should be pulled back 2 cm.
[2021-12-09] MEDS: PIPERACILLIN-TAZOBACTAM 3.375 GM in SODIUM CHLORIDE 0.9% 100 ML IVPB SCH (17:38)
[2021-12-09] MEDS: LACTATED RINGERS 1,000 ML IV SCH (17:39)
[2021-12-09 17:44] LABS: Basophils % (A) 0 %; Eosinophils % (A) 0 %; HCT 26.5 % (34.0-46.0); Hypochromasia Marked; Lymphocytes # (A) 0.6 k/uL (1.0-4.8); Lymphocytes % (A) 5 %; MCH 30.4 pg (25.0-35.0); MCHC 31.3 g/dL (31.0-37.0); MCV 97.2 fL (80.0-100.0); Mean Platelet Volume 7.8; Monocytes # (A) 0.5 k/uL (0-1.0); Monocytes % (A) 4 %; Neutrophils # (A) 10.1 k/uL (1.3-7.7); Neutrophils % (A) 89 %; Platelet Count 219 k/uL (150-450); RBC 2.72 m/uL (3.80-5.40); WBC 11.3 k/uL (3.8-10.6)
[2021-12-09 17:46] LABS: HGB 8.3 gm/dL (11.4-16.0)
[2021-12-09 18:21] LABS: Calcium 8.7 mg/dL (8.4-10.2); Magnesium 1.8 mg/dL (1.6-2.3); Potassium 3.9 mmol/L (3.5-5.1)
[2021-12-09] MEDS ORDERED: Potassium Replacement Protocol 1 EACH MISC MISCELLANE PRN (18:24)
[2021-12-09] MEDS ORDERED: Magnesium Replacement Protocol 1 EACH MISC MISCELLANE PRN (18:26)
[2021-12-09] MEDS: MAGNESIUM SULFATE-D5W PMX 1 GM in DEXTROSE/WATER 1 100ML.BAG IVPB SCH ×2 (18:35→20:29)
[2021-12-09] MEDS: POTASSIUM CHLORIDE 10 MEQ in WATER FOR INJECTION 1 100ML.BAG IVPB SCH ×2 (18:45→20:27)
[2021-12-09 18:52] LABS: Appearance,Urine Clear (Clear); Bilirubin,Urine Negative (Negative); Blood,Urine Negative (Negative); Color,Urine Light Yellow; Glucose,Urine (UA) Negative (Negative); Ketones,Urine Negative (Negative); Leukocyte Esterase,Urine Negative (Negative); Nitrite,Urine Negative (Negative); PH, Urine 6.5 (5.0-8.0); Protein,Urine Negative (Negative); Specific Gravity,Urine 1.009 (1.001-1.035); Urobilinogen,Urine <2.0 mg/dL (<2.0)
[2021-12-10] MEDS: LACTATED RINGERS 1,000 ML IV SCH ×3 (02:30→19:06)
[2021-12-10] MEDS ORDERED: SODIUM CHLORIDE 0.9% 2,000 ML IV ONE ×2 (03:31→08:17)
[2021-12-10 03:48] LABS: Anisocytosis Slight; Basophils % (A) 0 %; Eosinophils % (A) 0 %; HCT 37.6 % (34.0-46.0); Hypochromasia Moderate; Lymphocytes % (A) 6 %; MCH 29.7 pg (25.0-35.0); MCHC 30.8 g/dL (31.0-37.0); MCV 96.7 fL (80.0-100.0); Mean Platelet Volume 8.9; Monocytes # (A) 0.6 k/uL (0-1.0); Monocytes % (A) 4 %; Neutrophils # (A) 14.2 k/uL (1.3-7.7); Neutrophils % (A) 89 %; Platelet Count 323 k/uL (150-450); RBC 3.88 m/uL (3.80-5.40)
[2021-12-10 03:51] LABS: HGB 11.5 gm/dL (11.4-16.0)
[2021-12-10 03:53] LABS: INR 2.1 (<1.2); Prothrombin Time 20.6 sec (9.0-12.0)
[2021-12-10] MEDS: NOREPINEPHRINE 8 MG in SODIUM CHLORIDE 0.9% 250 ML IV SCH ×4 (03:55→23:38)
[2021-12-10 04:12] LABS: Albumin 2.4 g/dL (3.5-5.0); Calcium 7.9 mg/dL (8.4-10.2); Magnesium 2.2 mg/dL (1.6-2.3); Phosphorus 4.3 mg/dL (2.5-4.5); Potassium 4.7 mmol/L (3.5-5.1); Total Bilirubin 0.6 mg/dL (0.2-1.3); Total Protein 5.1 g/dL (6.3-8.2)
[2021-12-10] MEDS: FUROSEMIDE 10 MG/ML 4 ML VIAL IV SCH ×2 (05:18→07:58)
[2021-12-10 05:40] LABS: ABG Base Excess 0.4 mmol/L; ABG HCO3 25 mmol/L (21-25); ABG Oxygen Saturation 96.3 % (94-97); ABG PCO2 37 mmHg (35-45); ABG PH 7.44 (7.35-7.45); ABG PO2 83 mmHg (83-108); ABG TCO2 26 mmol/L (19-24); Allen Test Performed? Yes
[2021-12-10] MEDS: PIPERACILLIN-TAZOBACTAM 3.375 GM in SODIUM CHLORIDE 0.9% 100 ML IVPB SCH ×2 (05:43→19:05)
[2021-12-10] MEDS: GABAPENTIN 100 MG CAP PO SCH (07:58)
--- NOTE | 2021-12-10 09:07 | P.PN ---
Subjective Progress Note Date: 12/10/21 Pt is requiring increasing levophed. Intubated/sedated. Wound vac output is 2500cc in last 24 hours, gastric output 200cc, urine output is low. On LR 100cc/hr. Will receive 2L of bolus and increase rate to 150cc/hr. Vent: AC 350, PEEP 5, FiO2 40%, saturating well. Objective - Vital Signs Vital signs: Vital Signs Temp 97.9 F 12/10/21 04:00 Pulse 129 H 12/10/21 08:00 Resp 24 12/10/21 08:00 BP 99/55 12/10/21 08:00 Pulse Ox 96 12/10/21 08:00 Intake & Output 12/09/21 12/10/21 12/10/21 18:59 06:59 18:59 Intake Total 1109 3322.929 95.818 Output Total 525 3030 500 Balance 584 292.929 -404.182 Weight 144 kg Intake: IV 500 2900 50 Lactated Ringers 1,000 ml 700 50 @ 100 mls/hr IV .Q10H [facility] Rx#:[id number] Magnesium Sulfate-D5w Pmx 100 1 gm In Dextrose/Water 1 100ml.bag @ 100 mls/hr IVPB Q1H [facility] Rx#: [id number] Potassium Chloride 10 meq 100 In Water For Injection 1 100ml.bag @ 100 mls/hr IVPB Q1H [facility] Rx#: [id number] Sodium Chloride 0.9% 2, 2000 000 ml @ 999 mls/hr IV . Q2H1M [facility] Rx#:[id number] Intake, IV Titration 100 422.929 45.818 Amount Magnesium Sulfate-D5w Pmx 100 1 gm In Dextrose/Water 1 100ml.bag @ 100 mls/hr IVPB Q1H [facility] Rx#: [id number] Norepinephrine 8 mg In 22.929 45.818 Sodium Chloride 0.9% 250 ml @ 0.05 MCG/KG/MIN 12. 507 mls/hr IV .[id number] [facility] Rx#:[id number] Piperacillin-Tazobactam 3 100 .375 gm In Sodium Chloride 0.9% 100 ml @ 25 mls/hr IVPB Q12H [facility] Rx# :[id number] Piperacillin-Tazobactam 3 100 .375 gm In Sodium Chloride 0.9% 100 ml @ 25 mls/hr IVPB Q8H [facility] Rx#: [id number] Potassium Chloride 10 meq 100 In Water For Injection 1 100ml.bag @ 100 mls/hr IVPB Q1H [facility] Rx#: [id number] propofoL 1,000 mg In 100 Empty Bag 1 bag @ Titrate IV .Q0M [facility] Rx#: [id number] Blood Product 509 Ffp 24 Pher Acda Unit 255 [id number] Ffp 24 Pher Acda Cnt2 254 Unit [id number] Output: Gastric Drainage 100 Drainage 2000 500 Abdomen 2000 500 Urine 500 930 0 Estimated Blood Loss 25 Other: Voiding Method Indwelling Catheter ABP, PAP, CO, CI - Last Documented Arterial Blood Pressure 98/54 - Exam Gen: intubated, sedated HEENT: normocephalic, atraumatic, moist mucous membranes Resp: Vent: AC 350, PEEP 5, FiO2 40% CVS: good distal perfusion x 4, GI: soft, NTTP, ND, wound vac present : no SPT, no CVAT, esqueda catheter is present MSK: no pitting edema, no clubbing Neuro: non-focal - Labs CBC & Chem 7: 12/10/21 03:35 12/10/21 03:35 Labs: Abnormal Lab Results - Last 24 Hours (Table) 12/09/21 12/09/21 12/09/21 Range/Units 05:57 17:19 17:22 WBC 11.3 H (3.8-10.6) k/uL RBC 2.72 L (3.80-5.40) m/uL Hgb 8.3 L D (11.4-16.0) gm/dL Hct 26.5 L (34.0-46.0) % MCHC (31.0-37.0) g/dL RDW 16.0 H (11.5-15.5) % Neutrophils # 10.1 H (1.3-7.7) k/uL Lymphocytes # 0.6 L (1.0-4.8) k/uL PT 19.2 H (9.9-11.9) sec INR 1.74 H (0.90-1.11) ABG pH 7.33 L (7.35-7.45) ABG pCO2 55 H (35-45) mmHg ABG pO2 218 H (83-108) mmHg ABG HCO3 29 H (21-25) mmol/L ABG Total CO2 31 H (19-24) mmol/L ABG O2 Saturation 99.1 H (94-97) % Sodium (137-145) mmol/L BUN (7-17) mg/dL Creatinine (0.52-1.04) mg/dL Glucose (74-99) mg/dL Calcium (8.4-10.2) mg/dL Total Protein (6.3-8.2) g/dL Albumin (3.5-5.0) g/dL 12/09/21 12/10/21 12/10/21 Range/Units 17:22 03:35 03:35 WBC 16.0 H (3.8-10.6) k/uL RBC (3.80-5.40) m/uL Hgb (11.4-16.0) gm/dL Hct (34.0-46.0) % MCHC 30.8 L (31.0-37.0) g/dL RDW 16.0 H (11.5-15.5) % Neutrophils # 14.2 H (1.3-7.7) k/uL Lymphocytes # (1.0-4.8) k/uL PT (9.9-11.9) sec INR (0.90-1.11) ABG pH (7.35-7.45) ABG pCO2 (35-45) mmHg ABG pO2 (83-108) mmHg ABG HCO3 (21-25) mmol/L ABG Total CO2 (19-24) mmol/L ABG O2 Saturation (94-97) % Sodium 134 L (137-145) mmol/L BUN 38 H 38 H (7-17) mg/dL Creatinine 2.15 H 2.26 H (0.52-1.04) mg/dL Glucose 126 H 140 H (74-99) mg/dL Calcium 7.9 L (8.4-10.2) mg/dL Total Protein 5.1 L (6.3-8.2) g/dL Albumin 2.4 L (3.5-5.0) g/dL 12/10/21 12/10/21 Range/Units 03:35 05:37 WBC (3.8-10.6) k/uL RBC (3.80-5.40) m/uL Hgb (11.4-16.0) gm/dL Hct (34.0-46.0) % MCHC (31.0-37.0) g/dL RDW (11.5-15.5) % Neutrophils # (1.3-7.7) k/uL Lymphocytes # (1.0-4.8) k/uL PT 20.6 H (9.9-11.9) sec INR 2.1 H (0.90-1.11) ABG pH (7.35-7.45) ABG pCO2 (35-45) mmHg ABG pO2 (83-108) mmHg ABG HCO3 (21-25) mmol/L ABG Total CO2 26 H (19-24) mmol/L ABG O2 Saturation (94-97) % Sodium (137-145) mmol/L BUN (7-17) mg/dL Creatinine (0.52-1.04) mg/dL Glucose (74-99) mg/dL Calcium (8.4-10.2) mg/dL Total Protein (6.3-8.2) g/dL Albumin (3.5-5.0) g/dL Assessment and Plan Assessment: Septic Shock from Small Bowel Necrosis and Perforation Strangulated abdominal wall hernia to the left of the umbilicus containing loops of bowel -OGT -levophed -propofol -dilaudid PRN -Surgery consultation -Hold Coumadin until clered by surgery -s/p OR on 3/6, POD #1: strangulated ventral hernia with skin necrosis and small bowel necrosis and perforation, questionable viability of 300cm small bowel segment -Antiemetics -Zosyn Atrial fibrillation anticoagulated with Coumadin at baseline, rate controlled 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
[2021-12-10] MEDS: CHLORHEXIDINE GLUCONATE 15 ML CUP MUCOUS MEM SCH ×2 (09:17→20:52)
[2021-12-10] MEDS: PANTOPRAZOLE 40 MG/10 ML VIAL IV SCH (09:17)
--- NOTE | 2021-12-10 09:19 | P.CRDCN ---
History of Present Illness Consult date: 12/10/21 Consult reason: atrial fibrillation History of present illness: 71-year-old lady with history of permanent atrial fibrillation hypercoagulable status on long-term Coumadin hypertension dyslipidemia presented to Hospital with ventral hernia with strangulation and underwent surgery for the same. I have been consulted because of atrial fibrillation with poorly controlled ventricular rate. Patient is currently intubated on vent remains in A. fib with poorly controlled ventricular rate. Patient is hypotensive and is on pressors and IV fluids for the same. She has an ejection fraction of around 40-45% based on prior echocardiograms. I will treat the patient with IV Lopressor for better rate control. I believe some of her hypotension is related to A. fib with poorly controlled ventricular rate. Review of systems I'm unable to obtain from the patient General: The patient is awake and alert, in no distress, and does not appear acutely ill. Skin: Skin is warm and dry and no rashes or lesions are noted. Eye: Pupils are equal, round and reactive to light, extra-ocular movements are intact; there is normal conjunctiva bilaterally. Ears, nose, mouth and throat: There are moist mucous membranes and no oral lesions. Neck: The neck is supple, there is no tenderness or JVD. Cardiovascular: Irregular No murmur, rub or gallop is appreciated. Respiratory: Lungs are clear to auscultation, respirations are non-labored, breath sounds are equal. Gastrointestinal: Status post surgery for ventral hernia Back: There is no tenderness to palpation in the midline. There is no obvious deformity. Musculoskeletal: Patient intubated and on vent Extremities: 1-2+ bilateral leg edema Vascular: Femoral pulse is normal. Posterior tibial pulses are normal .Dorsalis pedis is palpable. Neurological: Patient underwent Psychiatric: Intubated and sedated Assessment and plan: Permanent atrial fibrillation with poorly controlled ventricular rate Vent requiring respiratory failure Hypotension Chronic renal failure Strangulated ventral hernia status post surgery I will treat the patient with IV Lopressor obtain an echocardiogram if necessary Past Medical History Past Medical History: Atrial Fibrillation, Blood Disorder, Cancer, Heart Failure, Deep Vein Thrombosis (DVT), Hypertension, Osteoarthritis (OA), Pulmonary Embolus (PE), Renal Disease Additional Past Medical History / Comment(s): mthfr, uterine cancer, gout, anemia. uses 4 prong cane OR WALKER when up. BACK PAIN, chronic kidney disease History of Any Multi-Drug Resistant Organisms: None Reported Past Surgical History: Hysterectomy, Orthopedic Surgery Additional Past Surgical History / Comment(s): plate and screws in right ankle, picc line-since removed, cortisone injections to knees Past Anesthesia/Blood Transfusion Reactions: No Reported Reaction Additional Past Anesthesia/Blood Transfusion Reaction / Comment(s): past blood transfusions-no reactions Past Psychological History: Depression Additional Psychological History / Comment(s): PAST HISTORY DEPRESSION (2018) no longer takes antidepressants Smoking Status: Never smoker Past Alcohol Use History: None Reported Past Drug Use History: None Reported - Past Family History Mother Family Medical History: Cancer Additional Family Medical History / Comment(s): BREAST Father Family Medical History: Coronary Artery Disease (CAD) Medications and Allergies Home Medications Medication Instructions Recorded Confirmed Type Allopurinol 100 mg PO BID 07/21/14 12/09/21 History Warfarin [Coumadin] 2.5 mg PO MOTUTHFRSA@1800 07/21/14 12/09/21 History traMADol HCL [Tramadol HCl] 100 mg PO BID 07/21/14 12/09/21 History Gabapentin [Neurontin] 100 mg PO BID 07/10/18 12/09/21 History Cholecalciferol [Vitamin D3 (25 50 mcg PO DAILY 10/10/21 12/09/21 History Mcg = 1000 Iu)] Folic Acid 0.8 mg PO DAILY 10/10/21 12/09/21 History Furosemide [Lasix] 40 mg PO DAILY 12/09/21 12/09/21 History Metoprolol Tartrate 12.5 mg PO BID 12/09/21 12/09/21 History Allergies Allergy/AdvReac Type Severity Reaction Status Date / Time aspirin Allergy Rash/Hives Verified 12/09/21 14:29 codeine Allergy Itching Verified 12/09/21 14:29 Physical Exam Vitals: Vital Signs Temp Pulse Pulse Resp BP BP Pulse Ox 12/10/21 08:00 129 H 24 99/55 96 12/10/21 07:40 141 H 24 97/47 96 12/10/21 07:20 112 H 24 104/51 98 12/10/21 07:00 124 H 24 99/48 97 12/10/21 06:40 146 H 24 90/63 96 12/10/21 06:20 126 H 24 105/47 96 12/10/21 06:00 123 H 24 98/63 95 12/10/21 05:40 123 H 24 115/67 97 12/10/21 05:20 154 H 24 110/58 97 12/10/21 05:00 146 H 24 120/66 96 12/10/21 04:40 105 H 24 117/66 97 12/10/21 04:20 111 H 24 115/66 99 12/10/21 04:00 97.9 F 113 H 24 81/48 98 12/10/21 03:40 129 H 24 77/53 98 12/10/21 03:20 156 H 24 100/26 97 12/10/21 03:00 133 H 24 94/59 98 12/10/21 02:40 129 H 24 97 12/10/21 02:20 141 H 24 110/57 99 12/10/21 02:00 123 H 24 92/60 98 12/10/21 01:40 133 H 24 102/53 99 12/10/21 01:20 118 H 24 105/61 98 12/10/21 01:00 120 H 24 113/78 95 12/10/21 00:40 121 H 24 88/51 94 L 12/10/21 00:20 140 H 24 77/58 78 L 12/10/21 00:00 98.3 F 98 24 101/65 100 12/09/21 23:40 120 H 24 98/60 100 12/09/21 23:20 147 H 24 90/69 97 12/09/21 23:00 131 H 24 99 12/09/21 22:40 112 H 24 90/58 100 12/09/21 22:20 138 H 24 84/70 96 12/09/21 22:00 117 H 24 109/71 94 L 12/09/21 21:40 105 H 24 108/90 98 12/09/21 21:20 122 H 24 103/58 100 12/09/21 21:00 109 H 10 L 88/73 100 12/09/21 20:40 112 H 21 101/72 98 12/09/21 20:20 108 H 25 H 99 12/09/21 20:00 97.9 F 112 H 95 24 100 12/09/21 19:40 105 H 24 99 12/09/21 19:20 107 H 24 98 12/09/21 19:00 93 24 98 12/09/21 18:40 104 H 24 97 12/09/21 18:20 89 24 97 12/09/21 18:00 90 24 97 12/09/21 17:40 106 H 57 H 99 12/09/21 17:20 102 H 11 L 12/09/21 17:00 114 H 23 126/95 12/09/21 16:40 105 H 11 L 126/95 100 12/09/21 16:33 105 H 19 100 12/09/21 14:30 97.5 F L 95 18 116/81 92 L 12/09/21 14:00 97.5 F L 95 16 116/81 92 L 12/09/21 13:08 97.6 F 101 H 18 124/73 97 Intake and Output 12/09/21 12/10/21 12/10/21 22:59 06:59 14:59 Intake Total 1709 2622.929 95.818 Output Total 2480 1075 500 Balance -771 1547.929 -404.182 Intake: IV 900 2500 50 Lactated Ringers 1,000 ml 200 500 50 @ 100 mls/hr IV .Q10H [facility] Rx#:[id number] Magnesium Sulfate-D5w Pmx 100 1 gm In Dextrose/Water 1 100ml.bag @ 100 mls/hr IVPB Q1H [facility] Rx#: [id number] Potassium Chloride 10 meq 100 In Water For Injection 1 100ml.bag @ 100 mls/hr IVPB Q1H [facility] Rx#: [id number] Sodium Chloride 0.9% 2, 2000 000 ml @ 999 mls/hr IV . Q2H1M [facility] Rx#:[id number] Intake, IV Titration 300 122.929 45.818 Amount Magnesium Sulfate-D5w Pmx 100 1 gm In Dextrose/Water 1 100ml.bag @ 100 mls/hr IVPB Q1H [facility] Rx#: [id number] Norepinephrine 8 mg In 22.929 45.818 Sodium Chloride 0.9% 250 ml @ 0.05 MCG/KG/MIN 12. 507 mls/hr IV .[id number] [facility] Rx#:[id number] Piperacillin-Tazobactam 3 100 .375 gm In Sodium Chloride 0.9% 100 ml @ 25 mls/hr IVPB Q8H [facility] Rx#: [id number] Potassium Chloride 10 meq 100 In Water For Injection 1 100ml.bag @ 100 mls/hr IVPB Q1H [facility] Rx#: [id number] propofoL 1,000 mg In 100 Empty Bag 1 bag @ Titrate IV .Q0M [facility] Rx#: [id number] Blood Product 509 Ffp 24 Pher Acda Unit 255 [id number] Ffp 24 Pher Acda Cnt2 254 Unit [id number] Output: Gastric Drainage 100 Drainage 1000 1000 500 Abdomen 1000 1000 500 Urine 1355 75 0 Estimated Blood Loss 25 Other: Voiding Method Indwelling Catheter Weight 144 kg ABP, PAP, CO, CI - Last 8 Hours Arterial Blood Pressure 98/54 Arterial Blood Pressure 94/49 Arterial Blood Pressure 86/53 Arterial Blood Pressure 105/46 Arterial Blood Pressure 80/49 Arterial Blood Pressure 97/55 Results 12/10/21 03:35 12/10/21 03:35 Cardiac Enzymes 12/10/21 Range/Units 03:35 AST 24 (14-36) U/L Coagulation 12/09/21 12/10/21 Range/Units 05:57 03:35 PT 19.2 H 20.6 H (9.9-11.9) sec CBC 12/09/21 12/10/21 Range/Units 17:22 03:35 WBC 11.3 H 16.0 H (3.8-10.6) k/uL RBC 2.72 L 3.88 (3.80-5.40) m/uL Hgb 8.3 L D 11.5 D (11.4-16.0) gm/dL Hct 26.5 L 37.6 (34.0-46.0) % Plt Count 219 323 (150-450) k/uL Comprehensive Metabolic Panel 12/09/21 12/10/21 Range/Units 17:22 03:35 Sodium 139 134 L (137-145) mmol/L Potassium 3.9 4.7 (3.5-5.1) mmol/L Chloride 103 106 (98-107) mmol/L Carbon Dioxide 28 24 (22-30) mmol/L BUN 38 H 38 H (7-17) mg/dL Creatinine 2.15 H 2.26 H (0.52-1.04) mg/dL Glucose 126 H 140 H (74-99) mg/dL Calcium 8.7 7.9 L (8.4-10.2) mg/dL AST 24 (14-36) U/L ALT 7 (4-34) U/L Alkaline Phosphatase 38 (38-126) U/L Total Protein 5.1 L (6.3-8.2) g/dL Albumin 2.4 L (3.5-5.0) g/dL Current Medications Generic Name Dose Route Start Last Admin Trade Name Freq PRN Reason Stop Dose Admin Acetaminophen 650 mg 12/09/21 09:28 Acetaminophen Tab 325 Mg Tab PO Q6HR PRN Mild Pain or Fever > 100.5 Chlorhexidine Gluconate 15 ml 12/10/21 09:00 Chlorhexidine Gluconate 15 Ml Cup MUCOUS MEM BID [facility] Heparin Sodium (Porcine) 5,000 unit 12/10/21 09:15 Heparin Sodium,Porcine/Pf 5,000 Unit/0.5 Ml Syringe SQ Q8HR [facility] Hydromorphone HCl 1 mg 12/09/21 03:41 12/09/21 12:52 Hydromorphone 1 Mg/Ml 1 Ml Syringe IVP 1 mg Q4HR PRN Administration Pain Piperacillin Sod/Tazobactam 100 mls @ 25 mls/hr 12/09/21 18:00 12/10/21 05:43 Sod 3.375 gm/ Sodium Chloride IVPB 25 mls/hr Q12H [facility] Administration Protocol Propofol 1,000 mg/ IV Solution 100 mls @ 0 mls/hr 12/09/21 17:00 12/10/21 03:46 IV 20 mcg/kg/min .Q0M [facility] 15.513 mls/hr Administration Protocol Titrate Lactated Ringer's 1,000 mls @ 100 mls/hr 12/09/21 17:00 12/10/21 02:30 Lactated Ringers IV 100 mls/hr .Q10H [facility] Administration Norepinephrine Bitartrate 8 mg 258 mls @ 12.507 mls/hr 12/10/21 04:00 12/10/21 08:22 / Sodium Chloride IV 0.1 mcg/kg/min .[id number] [facility] 25.015 mls/hr Titration Protocol 0.05 MCG/KG/MIN Sodium Chloride 2,000 mls @ 999 mls/hr 12/10/21 08:17 Saline 0.9% IV 12/10/21 10:17 .Q2H1M [facility] Miscellaneous Information 1 each 12/09/21 18:24 Potassium Replacement Protocol 1 Each Mis MISCELLANE DAILY PRN Per Protocol Protocol Miscellaneous Information 1 each 12/09/21 18:26 Magnesium Replacement Protocol 1 Each [facility] MISCELLANE DAILY PRN Per Protocol Protocol Naloxone HCl 0.2 mg 12/09/21 04:44 Naloxone 0.4 Mg/Ml 1 Ml Vial IV Q2M PRN Opioid Reversal Ondansetron HCl 4 mg 12/09/21 04:44 12/09/21 12:51 Ondansetron 4 Mg/2 Ml Vial IVP 4 mg Q8HR PRN Administration Nausea And Vomiting Pantoprazole Sodium 40 mg 12/09/21 09:00 12/09/21 08:00 Pantoprazole 40 Mg/10 Ml Vial IV 40 mg DAILY [facility] Administration Intake and Output 12/09/21 12/10/21 12/10/21 22:59 06:59 14:59 Intake Total 1709 2622.929 95.818 Output Total 2480 1075 500 Balance -771 1547.929 -404.182 Intake: IV 900 2500 50 Lactated Ringers 1,000 ml 200 500 50 @ 100 mls/hr IV .Q10H [facility] Rx#:[id number] Magnesium Sulfate-D5w Pmx 100 1 gm In Dextrose/Water 1 100ml.bag @ 100 mls/hr IVPB Q1H [facility] Rx#: [id number] Potassium Chloride 10 meq 100 In Water For Injection 1 100ml.bag @ 100 mls/hr IVPB Q1H [facility] Rx#: [id number] Sodium Chloride 0.9% 2, 2000 000 ml @ 999 mls/hr IV . Q2H1M [facility] Rx#:[id number] Intake, IV Titration 300 122.929 45.818 Amount Magnesium Sulfate-D5w Pmx 100 1 gm In Dextrose/Water 1 100ml.bag @ 100 mls/hr IVPB Q1H [facility] Rx#: [id number] Norepinephrine 8 mg In 22.929 45.818 Sodium Chloride 0.9% 250 ml @ 0.05 MCG/KG/MIN 12. 507 mls/hr IV .[id number] [facility] Rx#:[id number] Piperacillin-Tazobactam 3 100 .375 gm In Sodium Chloride 0.9% 100 ml @ 25 mls/hr IVPB Q8H [facility] Rx#: [id number] Potassium Chloride 10 meq 100 In Water For Injection 1 100ml.bag @ 100 mls/hr IVPB Q1H [facility] Rx#: [id number] propofoL 1,000 mg In 100 Empty Bag 1 bag @ Titrate IV .Q0M [facility] Rx#: [id number] Blood Product 509 Ffp 24 Pher Acda Unit 255 [id number] Ffp 24 Pher Acda Cnt2 254 Unit [id number] Output: Gastric Drainage 100 Drainage 1000 1000 500 Abdomen 1000 1000 500 Urine 1355 75 0 Estimated Blood Loss 25 Other: Voiding Method Indwelling Catheter Weight 144 kg 12/10/21 03:35 12/10/21 03:35 EKG Interpretations (text) Atrial fibrillation with nonspecific ST-T wave changes
--- NOTE | 2021-12-10 09:30 | XR ---
EXAMINATION TYPE: XR chest 1V portable DATE OF EXAM: 12/10/2021 COMPARISON: 12/09/2021 HISTORY: Shortness of breath FINDINGS: There are bilateral pleural effusions with cardiomegaly and bibasilar infiltrate. There is a diffuse interstitial pattern. ET tube, NG tube, central line stable. Rib deformities on the right are stable . Scoliosis and degenerative, hypertrophic changes spine. IMPRESSION: 1. Diffuse pleural-parenchymal changes correlate for CHF, ARDS or diffuse pneumonia.
[2021-12-10] MEDS: HEPARIN SODIUM,PORCINE/PF 5,000 UNIT/0.5 ML SYRINGE SQ SCH ×2 (10:00→17:35)
--- NOTE | 2021-12-10 10:43 | P.PN ---
Subjective Progress Note Date: 12/10/21 Principal diagnosis: Strangulated ventral hernia with small bowel ischemia and necrosis, morbid obesity, history of hypercoagulable state maintained on Coumadin Patient is seen and examined at bedside. Remains sedated on the ventilator requiring minimal propofol. Following commands. Appears comfortable at rest. Receiving tidal volumes of around 380 mL with peak pressures of 24 on assist control with FiO2 of 40%. Requiring low-dose pressor support with Levophed at 1 mcg/kg/m. Nasogastric tube yielding scant gastric output without signs of bleeding. Abthera VAC is in place with predominantly serous output no evidence of bile leak or enteric succus. Scant to no urine output overnight in spite of relatively aggressive IV fluids. Chest x-ray this morning shows diffuse bilateral interstitial infiltrates, right subclavian central line in place without evidence of pneumothorax. Laboratory studies this morning show a leukocytosis at 16,000, hemoglobin 11.5, platelet count of 323. Serum electrolytes are acceptable with a creatinine of 2.26 would would appear to be close to her as thoracal baseline. Liver functions normal on all counts. Overnight some mild acidosis on ABG has resolved this morning. INR is 2.1 this morning despite 2 units of FFP yesterday. Coumadin has been held, patient's on prophylactic dose Lovenox for history of hypercoagulable state. Objective - Vital Signs Vital signs: Vital Signs Temp 99.3 F 12/10/21 09:00 Pulse 118 H 12/10/21 10:00 Resp 24 12/10/21 10:00 BP 122/70 12/10/21 10:00 Pulse Ox 97 12/10/21 10:00 Intake & Output 12/09/21 12/10/21 12/10/21 18:59 06:59 18:59 Intake Total 1109 3322.929 2381.915 Output Total 525 3030 500 Balance 584 901.363 8403.915 Weight 144 kg Intake: IV 500 2900 2250 Lactated Ringers 1,000 ml 700 250 @ 100 mls/hr IV .Q10H [facility] Rx#:[id number] Magnesium Sulfate-D5w Pmx 100 1 gm In Dextrose/Water 1 100ml.bag @ 100 mls/hr IVPB Q1H [facility] Rx#: [id number] Potassium Chloride 10 meq 100 In Water For Injection 1 100ml.bag @ 100 mls/hr IVPB Q1H [facility] Rx#: [id number] Sodium Chloride 0.9% 2, 1999 2000 000 ml @ 999 mls/hr IV . Q2H1M [facility] Rx#:[id number] Intake, IV Titration 100 422.929 131.915 Amount Magnesium Sulfate-D5w Pmx 100 1 gm In Dextrose/Water 1 100ml.bag @ 100 mls/hr IVPB Q1H [facility] Rx#: [id number] Norepinephrine 8 mg In 22.929 45.818 Sodium Chloride 0.9% 250 ml @ 0.05 MCG/KG/MIN 12. 507 mls/hr IV .[id number] [facility] Rx#:[id number] Piperacillin-Tazobactam 3 100 .375 gm In Sodium Chloride 0.9% 100 ml @ 25 mls/hr IVPB Q12H [facility] Rx# :[id number] Piperacillin-Tazobactam 3 100 .375 gm In Sodium Chloride 0.9% 100 ml @ 25 mls/hr IVPB Q8H [facility] Rx#: [id number] Potassium Chloride 10 meq 100 In Water For Injection 1 100ml.bag @ 100 mls/hr IVPB Q1H [facility] Rx#: [id number] propofoL 1,000 mg In 100 86.097 Empty Bag 1 bag @ Titrate IV .Q0M [facility] Rx#: [id number] Blood Product 509 Ffp 24 Pher Acda Unit 255 [id number] Ffp 24 Pher Acda Cnt2 254 Unit [id number] Output: Gastric Drainage 100 Drainage 2000 500 Abdomen 2000 500 Urine 500 930 0 Estimated Blood Loss 25 Other: Voiding Method Indwelling Catheter Indwelling Catheter ABP, PAP, CO, CI - Last Documented Arterial Blood Pressure 126/58 - Exam Patient remains sedated on the ventilator, nonverbal but follows commands. - Constitutional General appearance: Present: obese - EENT ENT: Present: hearing grossly normal - Respiratory Details: Lung sounds coarse a mechanical bilaterally. - Cardiovascular Rhythm: irregularly irregular - Gastrointestinal Gastrointestinal Comment(s): Abdomen is soft with mild to moderate diffuse tenderness, no guarding appreciated. Wound VAC dressing is in place with predominantly serous aspirate, no leak. - Genitourinary Genitourinary Comment(s): Alvarado catheter in place with scant urine output overnight - Labs CBC & Chem 7: 12/10/21 03:35 12/10/21 03:35 Labs: Abnormal Lab Results - Last 24 Hours (Table) 12/09/21 12/09/21 12/09/21 Range/Units 05:57 17:19 17:22 WBC 11.3 H (3.8-10.6) k/uL RBC 2.72 L (3.80-5.40) m/uL Hgb 8.3 L D (11.4-16.0) gm/dL Hct 26.5 L (34.0-46.0) % MCHC (31.0-37.0) g/dL RDW 16.0 H (11.5-15.5) % Neutrophils # 10.1 H (1.3-7.7) k/uL Lymphocytes # 0.6 L (1.0-4.8) k/uL PT 19.2 H (9.9-11.9) sec INR 1.74 H (0.90-1.11) ABG pH 7.33 L (7.35-7.45) ABG pCO2 55 H (35-45) mmHg ABG pO2 218 H (83-108) mmHg ABG HCO3 29 H (21-25) mmol/L ABG Total CO2 31 H (19-24) mmol/L ABG O2 Saturation 99.1 H (94-97) % Sodium (137-145) mmol/L BUN (7-17) mg/dL Creatinine (0.52-1.04) mg/dL Glucose (74-99) mg/dL Calcium (8.4-10.2) mg/dL Total Protein (6.3-8.2) g/dL Albumin (3.5-5.0) g/dL 12/09/21 12/10/21 12/10/21 Range/Units 17:22 03:35 03:35 WBC 16.0 H (3.8-10.6) k/uL RBC (3.80-5.40) m/uL Hgb (11.4-16.0) gm/dL Hct (34.0-46.0) % MCHC 30.8 L (31.0-37.0) g/dL RDW 16.0 H (11.5-15.5) % Neutrophils # 14.2 H (1.3-7.7) k/uL Lymphocytes # (1.0-4.8) k/uL PT (9.9-11.9) sec INR (0.90-1.11) ABG pH (7.35-7.45) ABG pCO2 (35-45) mmHg ABG pO2 (83-108) mmHg ABG HCO3 (21-25) mmol/L ABG Total CO2 (19-24) mmol/L ABG O2 Saturation (94-97) % Sodium 134 L (137-145) mmol/L BUN 38 H 38 H (7-17) mg/dL Creatinine 2.15 H 2.26 H (0.52-1.04) mg/dL Glucose 126 H 140 H (74-99) mg/dL Calcium 7.9 L (8.4-10.2) mg/dL Total Protein 5.1 L (6.3-8.2) g/dL Albumin 2.4 L (3.5-5.0) g/dL 12/10/21 12/10/21 Range/Units 03:35 05:37 WBC (3.8-10.6) k/uL RBC (3.80-5.40) m/uL Hgb (11.4-16.0) gm/dL Hct (34.0-46.0) % MCHC (31.0-37.0) g/dL RDW (11.5-15.5) % Neutrophils # (1.3-7.7) k/uL Lymphocytes # (1.0-4.8) k/uL PT 20.6 H (9.9-11.9) sec INR 2.1 H (0.90-1.11) ABG pH (7.35-7.45) ABG pCO2 (35-45) mmHg ABG pO2 (83-108) mmHg ABG HCO3 (21-25) mmol/L ABG Total CO2 26 H (19-24) mmol/L ABG O2 Saturation (94-97) % Sodium (137-145) mmol/L BUN (7-17) mg/dL Creatinine (0.52-1.04) mg/dL Glucose (74-99) mg/dL Calcium (8.4-10.2) mg/dL Total Protein (6.3-8.2) g/dL Albumin (3.5-5.0) g/dL - Imaging and Cardiology Chest x-ray: report reviewed, image reviewed Assessment and Plan Assessment: 1) 71-year-old lady POD#1 exploratory laparotomy with 30 cm segmental small bowel resection for ischemia, necrosis and perforation with application of temporary abdominal closure device for anticipated Second Look. Evidence of compromise to an aggregate 300 cm segment of small bowel with some return of perfusion on reduction of hernia. Degree of sepsis due to the same. Presently on low-dose Levophed to maintain adequate mean arterial perfusion, broad- spectrum and diabetic coverage with Zosyn. 2) Changes on chest x-ray interpreted as equivocal for congestive versus pneumonia versus ARDS. 3) Oral anticoagulation on Coumadin for remote history of DVT, pulmonary embolus and hypercoagulable state with MTHFR mutation. 4) Super morbid obesity with BMI in excess of 50. 5) Chronic congestive heart failure, long-standing atrial fibrillation, stage IV chronic kidney disease and cardiorenal syndrome. Plan: Will reassess the patient later this afternoon and make a decision as to whether Second Look should be pursued today versus tomorrow. Ideally I would like her coming off of pressor support so that we could pursue an anastomosis. I don't see evidence of bile leak at her temporary abdominal closure device, she may need a little bit more time to recover or demarcate. Nephrology, cardiology, and hull line crew member notes were reviewed and appreciated. Patient's pulmonary and re nal issues are a bit concerning, I do suspect that she'll need a few more days of ventilator support. Time with Patient: Greater than 30
--- NOTE | 2021-12-10 11:14 | P.CNPUL ---
History of Present Illness Consult date: 12/10/21 Requesting physician: Nikki Baldwin Reason for consult: other Chief complaint: Postoperative ventilator management. History of present illness: Pulmonary consult dated 12/10/2021. 71-year-old female seen in room 250. The patient is postop day #1, status post exploratory laparotomy, excision of umbilicus and hernia sac, small bowel resection, reduction of ventral hernia, and wound VAC placement. We are seeing the patient for the first time in the intensive care unit. She remains on the ventilator. She apparently is being taken back to the operating room either later today or tomorrow. She is on volume assist control, rate 24, tidal volume 350, FiO2 40%, and PEEP of 5. Blood gases show pO2 83, CO2 37, and pH is 7.44. The patient is on propofol at 20 mcg/kg/m, saline at 50 mL an hour, and norepinephrine at 0.07 mcg/kg/m, which is roughly 10 mcg/m. The patient was initially seen in the emergency department on December 09, with severe abdominal pain. White count 16, hemoglobin 11.5, hematocrit 37.6, platelet count 323,000. PT 20.6, INR 2.1. Sodium 134, potassium 4.7, chlorides 106, CO2 24, anion gap 4, BUN 38, creatinine 2.26. Albumin is 2.4. Urine was negative. Chest x-ray showed diffuse bilateral infiltrates with small effusions. Review of Systems REVIEW OF SYSTEMS: CONSTITUTIONAL: [Negative.] NEUROLOGIC: [ Negative.] HEENT: [ Negative.] CARDIAC: [Negative.] PULMONARY: [Negative.] GI: As per the emergency room amy, abdominal pain. : [Negative.] RHEUMATOLOGIC: [ Negative.] IMMUNOLOGIC: [ Negative.] ENDOCRINE: [Negative. ] DERMATOLOGIC: [Negative.] Past Medical History Past Medical History: Atrial Fibrillation, Blood Disorder, Cancer, Heart Failure, Deep Vein Thrombosis (DVT), Hypertension, Osteoarthritis (OA), Pulmonary Embolus (PE), Renal Disease Additional Past Medical History / Comment(s): mthfr, uterine cancer, gout, anemia. uses 4 prong cane OR WALKER when up. BACK PAIN, chronic kidney disease History of Any Multi-Drug Resistant Organisms: None Reported Past Surgical History: Hysterectomy, Orthopedic Surgery Additional Past Surgical History / Comment(s): plate and screws in right ankle, picc line-since removed, cortisone injections to knees Past Anesthesia/Blood Transfusion Reactions: No Reported Reaction Additional Past Anesthesia/Blood Transfusion Reaction / Comment(s): past blood transfusions-no reactions Past Psychological History: Depression Additional Psychological History / Comment(s): PAST HISTORY DEPRESSION (2018) no longer takes antidepressants Smoking Status: Never smoker Past Alcohol Use History: None Reported Past Drug Use History: None Reported - Past Family History Mother Family Medical History: Cancer Additional Family Medical History / Comment(s): BREAST Father Family Medical History: Coronary Artery Disease (CAD) Medications and Allergies Home Medications Medication Instructions Recorded Confirmed Type Allopurinol 100 mg PO BID 07/21/14 12/09/21 History Warfarin [Coumadin] 2.5 mg PO [id number]@1800 07/21/14 12/09/21 History traMADol HCL [Tramadol HCl] 100 mg PO BID 07/21/14 12/09/21 History Gabapentin [Neurontin] 100 mg PO BID 07/10/18 12/09/21 History Cholecalciferol [Vitamin D3 (25 50 mcg PO DAILY 10/10/21 12/09/21 History Mcg = 1000 Iu)] Folic Acid 0.8 mg PO DAILY 10/10/21 12/09/21 History Furosemide [Lasix] 40 mg PO DAILY 12/09/21 12/09/21 History Metoprolol Tartrate 12.5 mg PO BID 12/09/21 12/09/21 History Allergies Allergy/AdvReac Type Severity Reaction Status Date / Time aspirin Allergy Rash/Hives Verified 12/09/21 14:29 codeine Allergy Itching Verified 12/09/21 14:29 Physical Exam Osteopathic Statement: *. No significant issues noted on an osteopathic structural exam other than those noted in the History and Physical/Consult. Vitals: Vital Signs Temp Pulse Pulse Resp BP BP Pulse Ox 12/10/21 10:00 118 H 24 122/70 97 12/10/21 09:40 114 H 19 97 12/10/21 09:20 107 H 24 117/95 95 12/10/21 09:00 99.3 F 118 H 9 L 106/68 95 12/10/21 08:40 129 H 10 L 115/62 95 12/10/21 08:20 126 H 24 105/56 96 12/10/21 08:00 129 H 95 19 99/55 96 12/10/21 07:40 141 H 24 97/47 96 12/10/21 07:20 112 H 24 104/51 98 12/10/21 07:00 124 H 24 99/48 97 12/10/21 06:40 146 H 24 90/63 96 12/10/21 06:20 126 H 24 105/47 96 12/10/21 06:00 123 H 24 98/63 95 12/10/21 05:40 123 H 24 115/67 97 12/10/21 05:20 154 H 24 110/58 97 12/10/21 05:00 146 H 24 120/66 96 12/10/21 04:40 105 H 24 117/66 97 12/10/21 04:20 111 H 24 115/66 99 12/10/21 04:00 97.9 F 113 H 24 81/48 98 12/10/21 03:40 129 H 24 77/53 98 12/10/21 03:20 156 H 24 100/26 97 12/10/21 03:00 133 H 24 94/59 98 12/10/21 02:40 129 H 24 97 12/10/21 02:20 141 H 24 110/57 99 12/10/21 02:00 123 H 24 92/60 98 12/10/21 01:40 133 H 24 102/53 99 12/10/21 01:20 118 H 24 105/61 98 12/10/21 01:00 120 H 24 113/78 95 12/10/21 00:40 121 H 24 88/51 94 L 12/10/21 00:20 140 H 24 77/58 78 L 12/10/21 00:00 98.3 F 98 24 101/65 100 12/09/21 23:40 120 H 24 98/60 100 12/09/21 23:20 147 H 24 90/69 97 12/09/21 23:00 131 H 24 99 12/09/21 22:40 112 H 24 90/58 100 12/09/21 22:20 138 H 24 84/70 96 12/09/21 22:00 117 H 24 109/71 94 L 12/09/21 21:40 105 H 24 108/90 98 12/09/21 21:20 122 H 24 103/58 100 12/09/21 21:00 109 H 10 L 88/73 100 12/09/21 20:40 112 H 21 101/72 98 12/09/21 20:20 108 H 25 H 99 12/09/21 20:00 97.9 F 112 H 95 24 100 12/09/21 19:40 105 H 24 99 12/09/21 19:20 107 H 24 98 12/09/21 19:00 93 24 98 12/09/21 18:40 104 H 24 97 12/09/21 18:20 89 24 97 12/09/21 18:00 90 24 97 12/09/21 17:40 106 H 57 H 99 12/09/21 17:20 102 H 11 L 12/09/21 17:00 114 H 23 126/95 12/09/21 16:40 105 H 11 L 126/95 100 12/09/21 16:33 105 H 19 100 12/09/21 14:30 97.5 F L 95 18 116/81 92 L 12/09/21 14:00 97.5 F L 95 16 116/81 92 L 12/09/21 13:08 97.6 F 101 H 18 124/73 97 Intake and Output 12/09/21 12/10/21 12/10/21 22:59 06:59 14:59 Intake Total 1709 2622.929 2381.915 Output Total 2480 1075 500 Balance -771 9013.274 5297.915 Intake: IV 900 2500 2250 Lactated Ringers 1,000 ml 200 500 250 @ 100 mls/hr IV .Q10H [facility] Rx#:[id number] Magnesium Sulfate-D5w Pmx 100 1 gm In Dextrose/Water 1 100ml.bag @ 100 mls/hr IVPB Q1H [facility] Rx#: [id number] Potassium Chloride 10 meq 100 In Water For Injection 1 100ml.bag @ 100 mls/hr IVPB Q1H [facility] Rx#: [id number] Sodium Chloride 0.9% 2, 2000 2000 000 ml @ 999 mls/hr IV . Q2H1M [facility] Rx#:[id number] Intake, IV Titration 300 122.929 131.915 Amount Magnesium Sulfate-D5w Pmx 100 1 gm In Dextrose/Water 1 100ml.bag @ 100 mls/hr IVPB Q1H [facility] Rx#: [id number] Norepinephrine 8 mg In 22.929 45.818 Sodium Chloride 0.9% 250 ml @ 0.05 MCG/KG/MIN 12. 507 mls/hr IV .[id number] [facility] Rx#:[id number] Piperacillin-Tazobactam 3 100 .375 gm In Sodium Chloride 0.9% 100 ml @ 25 mls/hr IVPB Q8H [facility] Rx#: [id number] Potassium Chloride 10 meq 100 In Water For Injection 1 100ml.bag @ 100 mls/hr IVPB Q1H [facility] Rx#: [id number] propofoL 1,000 mg In 100 86.097 Empty Bag 1 bag @ Titrate IV .Q0M [facility] Rx#: [id number] Blood Product 509 Ffp 24 Pher Acda Unit 255 [id number] Ffp 24 Pher Acda Cnt2 254 Unit [id number] Output: Gastric Drainage 100 Drainage 1000 1000 500 Abdomen 1000 1000 500 Urine 1355 75 0 Estimated Blood Loss 25 Other: Voiding Method Indwelling Catheter Indwelling Catheter Weight 144 kg ABP, PAP, CO, CI - Last 8 Hours Arterial Blood Pressure 126/58 Arterial Blood Pressure 109/59 Arterial Blood Pressure 112/60 Arterial Blood Pressure 104/53 Arterial Blood Pressure 109/57 Arterial Blood Pressure 89/53 Arterial Blood Pressure 98/54 Arterial Blood Pressure 94/49 Arterial Blood Pressure 86/53 Arterial Blood Pressure 105/46 Arterial Blood Pressure 80/49 Arterial Blood Pressure 97/55 No acute distress, sedated, with an orally placed endotracheal tube, and NG tube.. HEENT examination is grossly unremarkable. Neck supple. Full range of motion. No adenopathy thyromegaly or neck vein distention. Cardiovascular examination reveals an irregular rhythm and rate. S1-S2 normal. No S3 or S4. No discernible murmur noted. Heart rate 118 bpm. The patient is in atrial fibrillation. Lungs reveal diffuse bilateral rhonchi. No wheezes or crackles. Breath sounds equal bilaterally. Saturations are 97%. Abdomen soft, without bowel sounds. A wound VAC is noted. The abdomen is open. Extremities are intact. No cyanosis or clubbing. Trace edema is noted. Skin is without rash or lesion. Neurologic examination cannot be assessed as the patient's currently sedated. Results - Laboratory Findings CBC and BMP: 12/10/21 03:35 12/10/21 03:35 ABG ABG pH 7.44 (7.35-7.45) 12/10/21 05:37 ABG pCO2 37 mmHg (35-45) 12/10/21 05:37 ABG pO2 83 mmHg (83-108) 12/10/21 05:37 ABG O2 Saturation 96.3 % (94-97) 12/10/21 05:37 PT/INR, D-dimer PT 20.6 sec (9.0-12.0) H 12/10/21 03:35 INR 2.1 (<1.2) H 12/10/21 03:35 Abnormal lab findings: Abnormal Labs 12/09/21 12/09/21 12/09/21 02:44 02:44 05:57 WBC 13.8 H RBC Hgb Hct MCHC RDW 16.1 H Neutrophils # 12.7 H Lymphocytes # 0.8 L PT 19.2 H INR 1.74 H ABG pH ABG pCO2 ABG pO2 ABG HCO3 ABG Total CO2 ABG O2 Saturation Sodium BUN 39 H Creatinine 2.13 H Glucose 153 H Calcium Total Protein Albumin 12/09/21 12/09/21 12/09/21 17:19 17:22 17:22 WBC 11.3 H RBC 2.72 L Hgb 8.3 L D Hct 26.5 L MCHC RDW 16.0 H Neutrophils # 10.1 H Lymphocytes # 0.6 L PT INR ABG pH 7.33 L ABG pCO2 55 H ABG pO2 218 H ABG HCO3 29 H ABG Total CO2 31 H ABG O2 Saturation 99.1 H Sodium BUN 38 H Creatinine 2.15 H Glucose 126 H Calcium Total Protein Albumin 12/10/21 12/10/21 12/10/21 03:35 03:35 03:35 WBC 16.0 H RBC Hgb Hct MCHC 30.8 L RDW 16.0 H Neutrophils # 14.2 H Lymphocytes # PT 20.6 H INR 2.1 H ABG pH ABG pCO2 ABG pO2 ABG HCO3 ABG Total CO2 ABG O2 Saturation Sodium 134 L BUN 38 H Creatinine 2.26 H Glucose 140 H Calcium 7.9 L Total Protein 5.1 L Albumin 2.4 L 12/10/21 05:37 WBC RBC Hgb Hct MCHC RDW Neutrophils # Lymphocytes # PT INR ABG pH ABG pCO2 ABG pO2 ABG HCO3 ABG Total CO2 26 H ABG O2 Saturation Sodium BUN Creatinine Glucose Calcium Total Protein Albumin - Diagnostic Findings Chest x-ray: image reviewed Assessment and Plan Assessment: Postop day #1, status post exploratory laparotomy, excision of umbilicus hernia sac, small bowel resection, reduction of ventral hernia, and wound VAC placement. The plan is to take the patient back to the operating room either later today or tomorrow. Routine postoperative ventilator management, status post intubation on December 09. History of chronic atrial fibrillation. History of DVT. History of hypertension. History of pulmonary embolism. History of osteoarthritis. History of uterine cancer. History of gout. History of chronic kidney disease. Presence of the MTHFR mutation. Plan: Plan dated 12/10/2021. The patient will not be extubated as the patient is planning to go back to the operating room either later today or tomorrow. The patient's blood gases are reasonable. Vent settings are reasonable. The patient remains on propofol at 20 mcg/kg/m, and norepinephrine at 10 mcg/m. The patient's and chronic atrial fibrillation. We'll give the patient some additional volume. I told no she can use a small amount of metoprolol IV, i.e. 5 mg. Additional recommendations and suggestions are forthcoming. Prognosis is guarded. We will continue to follow the patient make recommendations were appropriate. Time with Patient: Greater than 30
--- NOTE | 2021-12-10 12:13 | P.PN ---
Subjective Patient is seen for follow-up for acute kidney injury. She has underlying chronic kidney disease NKF stage IV with baseline creatinine about 2-2.5 mg/dL. Patient also has a history of cardiomyopathy with ejection fraction 40-45%. Patient was admitted to the hospital with abdominal pain and incarcerated ventral hernia with skin necrosis and bowel necrosis with perforation. Patient is status post explorative laparotomy on 12/09/2021 with excision of umbilicus and hernial sac reduction of ventral hernia. And small bowel resection. Postoperatively patient was hypotensive requiring levo fed. Her urine output has an minimal since yesterday. Levo fed is at about 0.1 mcg/kg. Patient has received 3 L of fluid bolus this morning. She remains on the vent with FiO2 at 40%. According to the nurse patient has had large output from her wound Objective - Vital Signs Vital signs: Vital Signs Temp 99.3 F 12/10/21 09:00 Pulse 118 H 12/10/21 10:00 Resp 24 12/10/21 10:00 BP 122/70 12/10/21 10:00 Pulse Ox 97 12/10/21 10:00 Intake & Output 12/09/21 12/10/21 12/10/21 18:59 06:59 18:59 Intake Total 1109 3322.929 2381.915 Output Total 525 3030 500 Balance 584 978.917 1927.915 Weight 144 kg Intake: IV 500 2900 2250 Lactated Ringers 1,000 ml 700 250 @ 100 mls/hr IV .Q10H [facility] Rx#:[id number] Magnesium Sulfate-D5w Pmx 100 1 gm In Dextrose/Water 1 100ml.bag @ 100 mls/hr IVPB Q1H [facility] Rx#: [id number] Potassium Chloride 10 meq 100 In Water For Injection 1 100ml.bag @ 100 mls/hr IVPB Q1H [facility] Rx#: [id number] Sodium Chloride 0.9% 2, 2000 2000 000 ml @ 999 mls/hr IV . Q2H1M [facility] Rx#:[id number] Intake, IV Titration 100 422.929 131.915 Amount Magnesium Sulfate-D5w Pmx 100 1 gm In Dextrose/Water 1 100ml.bag @ 100 mls/hr IVPB Q1H [facility] Rx#: [id number] Norepinephrine 8 mg In 22.929 45.818 Sodium Chloride 0.9% 250 ml @ 0.05 MCG/KG/MIN 12. 507 mls/hr IV .[id number] [facility] Rx#:[id number] Piperacillin-Tazobactam 3 100 .375 gm In Sodium Chloride 0.9% 100 ml @ 25 mls/hr IVPB Q12H [facility] Rx# :[id number] Piperacillin-Tazobactam 3 100 .375 gm In Sodium Chloride 0.9% 100 ml @ 25 mls/hr IVPB Q8H [facility] Rx#: [id number] Potassium Chloride 10 meq 100 In Water For Injection 1 100ml.bag @ 100 mls/hr IVPB Q1H [facility] Rx#: [id number] propofoL 1,000 mg In 100 86.097 Empty Bag 1 bag @ Titrate IV .Q0M [facility] Rx#: [id number] Blood Product 509 Ffp 24 Pher Acda Unit 255 [id number] Ffp 24 Pher Acda Cnt2 254 Unit [id number] Output: Gastric Drainage 100 Drainage 2000 500 Abdomen 2000 500 Urine 500 930 0 Estimated Blood Loss 25 Other: Voiding Method Indwelling Catheter Indwelling Catheter ABP, PAP, CO, CI - Last Documented Arterial Blood Pressure 126/58 - Exam Patient is sedated She is on the vent. Examination of the heart S1 and S2 Examination lungs bilateral breath sounds are heard Abdomen is soft wound is dressed large output from the wound. Examination lower extremities shows 1+ edema BUTTER WRAPPER exam cannot be performed - Labs CBC & Chem 7: 12/10/21 03:35 12/10/21 03:35 Labs: Abnormal Lab Results - Last 24 Hours (Table) 12/09/21 12/09/21 12/09/21 Range/Units 17:19 17:22 17:22 WBC 11.3 H (3.8-10.6) k/uL RBC 2.72 L (3.80-5.40) m/uL Hgb 8.3 L D (11.4-16.0) gm/dL Hct 26.5 L (34.0-46.0) % MCHC (31.0-37.0) g/dL RDW 16.0 H (11.5-15.5) % Neutrophils # 10.1 H (1.3-7.7) k/uL Lymphocytes # 0.6 L (1.0-4.8) k/uL PT (9.0-12.0) sec INR (<1.2) ABG pH 7.33 L (7.35-7.45) ABG pCO2 55 H (35-45) mmHg ABG pO2 218 H (83-108) mmHg ABG HCO3 29 H (21-25) mmol/L ABG Total CO2 31 H (19-24) mmol/L ABG O2 Saturation 99.1 H (94-97) % Sodium (137-145) mmol/L BUN 38 H (7-17) mg/dL Creatinine 2.15 H (0.52-1.04) mg/dL Glucose 126 H (74-99) mg/dL Calcium (8.4-10.2) mg/dL Total Protein (6.3-8.2) g/dL Albumin (3.5-5.0) g/dL 12/10/21 12/10/21 12/10/21 Range/Units 03:35 03:35 03:35 WBC 16.0 H (3.8-10.6) k/uL RBC (3.80-5.40) m/uL Hgb (11.4-16.0) gm/dL Hct (34.0-46.0) % MCHC 30.8 L (31.0-37.0) g/dL RDW 16.0 H (11.5-15.5) % Neutrophils # 14.2 H (1.3-7.7) k/uL Lymphocytes # (1.0-4.8) k/uL PT 20.6 H (9.0-12.0) sec INR 2.1 H (<1.2) ABG pH (7.35-7.45) ABG pCO2 (35-45) mmHg ABG pO2 (83-108) mmHg ABG HCO3 (21-25) mmol/L ABG Total CO2 (19-24) mmol/L ABG O2 Saturation (94-97) % Sodium 134 L (137-145) mmol/L BUN 38 H (7-17) mg/dL Creatinine 2.26 H (0.52-1.04) mg/dL Glucose 140 H (74-99) mg/dL Calcium 7.9 L (8.4-10.2) mg/dL Total Protein 5.1 L (6.3-8.2) g/dL Albumin 2.4 L (3.5-5.0) g/dL 12/10/21 Range/Units 05:37 WBC (3.8-10.6) k/uL RBC (3.80-5.40) m/uL Hgb (11.4-16.0) gm/dL Hct (34.0-46.0) % MCHC (31.0-37.0) g/dL RDW (11.5-15.5) % Neutrophils # (1.3-7.7) k/uL Lymphocytes # (1.0-4.8) k/uL PT (9.0-12.0) sec INR (<1.2) ABG pH (7.35-7.45) ABG pCO2 (35-45) mmHg ABG pO2 (83-108) mmHg ABG HCO3 (21-25) mmol/L ABG Total CO2 26 H (19-24) mmol/L ABG O2 Saturation (94-97) % Sodium (137-145) mmol/L BUN (7-17) mg/dL Creatinine (0.52-1.04) mg/dL Glucose (74-99) mg/dL Calcium (8.4-10.2) mg/dL Total Protein (6.3-8.2) g/dL Albumin (3.5-5.0) g/dL Microbiology - Last 24 Hours (Table) 12/09/21 21:30 Sputum Culture - Preliminary Sputum Assessment and Plan Assessment: 1. Acute kidney injury ATN currently oliguric secondary to hypotension. Continue with IV fluids will try 1 dose of IV Lasix to help improve urine output. Consider dobutamine if patient remains oliguric as ejection fraction is low. 2. Chronic kidney disease stage IV secondary to cardiorenal syndrome creatinine 2-2.5 mg/dL. No evidence of proteinuria on UA No hydronephrosis on CAT scan 3. Strangulated abdominal wall hernia with bowel necrosis status post explorative laparotomy with bowel resection and excision of umbilical hernia sac 4. Chronic A. fib with episodes of tachycardia, currently being treated with IV Lopressor. 5. Cardiomyopathy with ejection fraction of 40-45% previously Plan: Continue with IV fluids IV Lasix 1 If patient remains oliguric consider dobutamine as she has underlying cardiom yopathy with ejection fraction 40-45%
--- NOTE | 2021-12-10 14:25 | P.PN ---
Progress Note - Text Progress Note Date: 12/10/21 Patient reassessed at bedside. Remains on Levothroid bed at 0.2 mcg/kg/m, essentially same dose as this morning. Atrial fibrillation with rapid ventricular response to 130s noted on telemetry. Dose of labetalol pending. VAC remains in place with predominantly serous drainage, no signs of enteric leak of bile. Will anticipate return to operating room tomorrow for reexploration, additional bowel resection if there are areas of demarcated ischemic necrosis, and hopefully anastomosis. Depending on findings she may need an additional reexploration prior to fascial closure.
[2021-12-10] MEDS: METOPROLOL TARTRATE 5 MG/5 ML VIAL IVP PRN ×2 (14:51→21:02)
--- NOTE | 2021-12-10 17:33 | ECHOF ---
Referral Reason:hypotension MEASUREMENTS -------- HEIGHT: 157.5 cm WEIGHT: 143.8 kg BP: RVIDd: 1.8 cm (< 3.3) IVSd: 1.3 cm (0.6 - 1.1) LVIDd: 4.2 cm (3.9 - 5.3) LVPWd: 1.3 cm (0.6 - 1.1) IVSs: 1.7 cm LVIDs: 3.3 cm LVPWs: 1.9 cm FINDINGS -------- This was a technically difficult study with suboptimal views. Limited Study Pt. on a vent. The left ventricular size is normal. There is mild concentric left ventricular hypertrophy. Overa ll left ventricular systolic function is severely impaired with, an EF between 20 - 25 %. Lumason used CONCLUSIONS -------- 1. Pt. on a vent. 2. The left ventricular size is normal. 3. There is mild concentric left ventricular hypertrophy. 4. Overall left ventricular systolic function is severely impaired with, an EF between 20 - 25 %. CORN SHREDDER: Morenita Hopkins RD
[2021-12-10] MEDS ORDERED: SODIUM CHLORIDE 0.9% 500 ML 500 ML IV ONE (21:32)
[2021-12-11] MEDS: HEPARIN SODIUM,PORCINE/PF 5,000 UNIT/0.5 ML SYRINGE SQ SCH ×4 (00:07→23:42)
[2021-12-11] MEDS: NOREPINEPHRINE 8 MG in SODIUM CHLORIDE 0.9% 250 ML IV SCH ×6 (03:39→23:49)
[2021-12-11 04:31] LABS: Glucose,Whole Blood 131 mg/dL (75-99)
[2021-12-11] MEDS: METOPROLOL TARTRATE 5 MG/5 ML VIAL IVP PRN ×2 (04:43→11:36)
[2021-12-11 04:45] LABS: Albumin 2.2 g/dL (3.5-5.0); Calcium 7.6 mg/dL (8.4-10.2); Potassium 5.4 mmol/L (3.5-5.1); Total Bilirubin 0.7 mg/dL (0.2-1.3); Total Protein 4.8 g/dL (6.3-8.2)
[2021-12-11] MEDS ORDERED: FUROSEMIDE 10 MG/ML 10 ML VIAL IV STA (04:46)
[2021-12-11 05:24] LABS: Anisocytosis Slight; Basophils # (A) 0.1 k/uL (0-0.2); Basophils % (A) 0 %; Eosinophils % (A) 0 %; HCT 43.5 % (34.0-46.0); HGB 12.9 gm/dL (11.4-16.0); Hypochromasia Marked; Lymphocytes % (A) 11 %; MCHC 29.8 g/dL (31.0-37.0); MCV 97.3 fL (80.0-100.0); Macrocytosis Slight; Mean Platelet Volume 8.6; Monocytes % (A) 6 %; Neutrophils % (A) 81 %; Platelet Count 393 k/uL (150-450); RBC 4.47 m/uL (3.80-5.40); RDW 16.1 % (11.5-15.5); WBC 18.5 k/uL (3.8-10.6)
[2021-12-11 05:30] LABS: ABG Base Excess -4.7 mmol/L; ABG HCO3 21 mmol/L (21-25); ABG Oxygen Saturation 98.2 % (94-97); ABG PCO2 35 mmHg (35-45); ABG PH 7.38 (7.35-7.45); ABG PO2 108 mmHg (83-108); ABG TCO2 22 mmol/L (19-24); Allen Test Performed? Yes
[2021-12-11] MEDS: LACTATED RINGERS 1,000 ML IV SCH ×2 (06:05→15:58)
[2021-12-11] MEDS: PIPERACILLIN-TAZOBACTAM 3.375 GM in SODIUM CHLORIDE 0.9% 100 ML IVPB SCH ×2 (06:07→18:00)
--- NOTE | 2021-12-11 08:18 | XR ---
EXAMINATION TYPE: XR chest 1V portable DATE OF EXAM: 12/11/2021 COMPARISON: Chest x-ray 12/10/2021 HISTORY: Intubated TECHNIQUE: Single frontal view of the chest is obtained. FINDINGS: Endotracheal tube, NG tube are overlying appropriate positions, patient is rotated. No zoraida dent pneumothorax. Bilateral airspace disease is noted. Heart size may be accentuated by rotation. Th ere are overlying artifacts. Aorta is dense. Hemidiaphragms are secured. Distal tip the NG tube not i ncluded on exam. Right subclavian central venous catheter is present, distal tip is overlying the rig ht atrium. IMPRESSION: Findings are similar to prior exam. Correlate for pneumonia, congestive heart failure, A RDS, difficult to exclude effusion
[2021-12-11] MEDS: CHLORHEXIDINE GLUCONATE 15 ML CUP MUCOUS MEM SCH ×2 (08:41→20:19)
[2021-12-11] MEDS: PANTOPRAZOLE 40 MG/10 ML VIAL IV SCH (08:42)
--- NOTE | 2021-12-11 08:50 | P.PN ---
Subjective Progress Note Date: 12/11/21 Principal diagnosis: Ventilator management. Pulmonary consult dated 12/10/2021. 71-year-old female seen in room 250. The patient is postop day #1, status post exploratory laparotomy, excision of umbilicus and hernia sac, small bowel resection, reduction of ventral hernia, and wound VAC placement. We are seeing the patient for the first time in the intensive care unit. She remains on the ventilator. She apparently is being taken back to the operating room either later today or tomorrow. She is on volume assist control, rate 24, tidal volume 350, FiO2 40%, and PEEP of 5. Blood gases show pO2 83, CO2 37, and pH is 7.44. The patient is on propofol at 20 mcg/kg/m, saline at 50 mL an hour, and norepinephrine at 0.07 mcg/kg/m, which is roughly 10 mcg/m. The patient was initially seen in the emergency department on December 09, with severe abdominal pain. White count 16, hemoglobin 11.5, hematocrit 37.6, platelet count 323,000. PT 20.6, INR 2.1. Sodium 134, potassium 4.7, chlorides 106, CO2 24, anion gap 4, BUN 38, creatinine 2.26. Albumin is 2.4. Urine was negative. Chest x-ray showed diffuse bilateral infiltrates with small effusions. Progress note dated 12/11/2021. 71-year-old female, again seen in room 250. She is postop day #2, status post exploratory laparotomy, excision of umbilicus and hernia sac, small bowel resection, reduction of ventral hernia, and wound VAC placement. The patient apparently is going back to the operating room later today. The patient remains on the ventilator. She is on volume assist control, rate 24, tidal volume 350, FiO2 30%, PEEP of 5. Arterial blood gases show pO2 108, pCO2 35, and pH is 7.38. The patient is on lactated Ringer's at 100 mL an hour, propofol at 20 mcg/kg/m, and norepinephrine, at 35 mcg/m. I've asked the nurse to get a stat cortisol level, and apparently she was given Lasix 80 mg by nephrology earlier this morning, and has had less than 10 mL of urine output. White count 18.5, hemoglobin 12.9, hematocrit 43.5, platelet count 393,000. Sodium 133, potassium I.4, chlorides 106, CO2 19, anion gap 8, BUN 42, and creatinine 3.27. Microbiologic studies are thus far negative. Chest x-ray shows diffuse bilateral airspace disease. Endotracheal tube and NG tube are noted. Objective - Vital Signs Vital signs: Vital Signs Temp 99.2 F 12/11/21 08:00 Pulse 123 H 12/11/21 08:00 Resp 25 H 12/11/21 08:00 BP 108/66 12/11/21 08:00 Pulse Ox 96 12/11/21 08:00 Intake & Output 12/10/21 12/11/21 12/11/21 18:59 06:59 18:59 Intake Total 4435.592 2898.302 342.902 Output Total 1000 5960 505 Balance 3435.592 -3061.698 -162.098 Weight 147.6 kg Intake: IV 4050 1700 225 Lactated Ringers 1,000 ml 1050 1200 200 @ 100 mls/hr IV .Q10H [facility] Rx#:[id number] Piperacillin-Tazobactam 3 25 .375 gm In Sodium Chloride 0.9% 100 ml @ 25 mls/hr IVPB Q12H [facility] Rx# :[id number] Sodium Chloride 0.9% 2, 3000 000 ml @ 999 mls/hr IV . Q2H1M [facility] Rx#:[id number] Sodium Chloride 0.9% 500 500 ml 500 ml @ 999 mls/hr IV .Q31M [facility] Rx#:[id number] Intake, IV Titration 604.019 7688.302 117.902 Amount Norepinephrine 8 mg In 224.257 949.318 117.902 Sodium Chloride 0.9% 250 ml @ 0.05 MCG/KG/MIN 12. 507 mls/hr IV .[id number] [facility] Rx#:[id number] propofoL 1,000 mg In 161.335 248.984 Empty Bag 1 bag @ Titrate IV .Q0M [facility] Rx#: [id number] Output: Drainage 1000 5950 500 Abdomen 1000 5950 500 Urine 0 10 5 Other: Voiding Method Indwelling Catheter Indwelling Catheter Indwelling Catheter ABP, PAP, CO, CI - Last Documented Arterial Blood Pressure 108/60 - Exam No acute distress, sedated, with an orally placed endotracheal tube, and NG tube.. HEENT examination is grossly unremarkable. Neck supple. Full range of motion. No adenopathy thyromegaly or neck vein distention. Cardiovascular examination reveals an irregular rhythm and rate. S1-S2 normal. No S3 or S4. No discernible murmur noted. Heart rate 123 bpm. The patient is in atrial fibrillation. Lungs reveal diffuse bilateral rhonchi. No wheezes or crackles. Breath sounds equal bilaterally. Saturations are 96%. Abdomen soft, without bowel sounds. A wound VAC is noted. The abdomen is open. Extremities are intact. No cyanosis or clubbing. Trace edema is noted. Skin is without rash or lesion. Neurologic examination cannot be assessed as the patient's currently sedated. - Labs CBC & Chem 7: 12/11/21 04:13 12/11/21 04:13 Labs: Abnormal Lab Results - Last 24 Hours (Table) 12/11/21 12/11/21 12/11/21 Range/Units 04:13 04:13 04:30 WBC 18.5 H (3.8-10.6) k/uL MCHC 29.8 L (31.0-37.0) g/dL RDW 16.1 H (11.5-15.5) % Neutrophils # 15.0 H (1.3-7.7) k/uL ABG O2 Saturation (94-97) % Sodium 133 L (137-145) mmol/L Potassium 5.4 H (3.5-5.1) mmol/L Carbon Dioxide 19 L (22-30) mmol/L BUN 42 H (7-17) mg/dL Creatinine 3.27 H (0.52-1.04) mg/dL Glucose 155 H (74-99) mg/dL POC Glucose (mg/dL) 131 H (75-99) mg/dL Calcium 7.6 L (8.4-10.2) mg/dL Alkaline Phosphatase 37 L (38-126) U/L Total Protein 4.8 L (6.3-8.2) g/dL Albumin 2.2 L (3.5-5.0) g/dL 12/11/21 Range/Units 05:27 WBC (3.8-10.6) k/uL MCHC (31.0-37.0) g/dL RDW (11.5-15.5) % Neutrophils # (1.3-7.7) k/uL ABG O2 Saturation 98.2 H (94-97) % Sodium (137-145) mmol/L Potassium (3.5-5.1) mmol/L Carbon Dioxide (22-30) mmol/L BUN (7-17) mg/dL Creatinine (0.52-1.04) mg/dL Glucose (74-99) mg/dL POC Glucose (mg/dL) (75-99) mg/dL Calcium (8.4-10.2) mg/dL Alkaline Phosphatase (38-126) U/L Total Protein (6.3-8.2) g/dL Albumin (3.5-5.0) g/dL Microbiology - Last 24 Hours (Table) 12/09/21 21:30 Gram Stain - Preliminary Sputum Sputum Culture - Preliminary Assessment and Plan Assessment: Postop day #2, status post exploratory laparotomy, excision of umbilicus hernia sac, small bowel resection, reduction of ventral hernia, and wound VAC placement. The plan is to take the patient back to the operating room on 12/11/2021. Routine postoperative ventilator management, status post intubation on December 09. History of chronic atrial fibrillation. History of DVT. History of hypertension. History of pulmonary embolism. History of osteoarthritis. History of uterine cancer. History of gout. History of chronic kidney disease. Presence of the MTHFR mutation. Plan: Plan dated 12/10/2021. The patient will not be extubated as the patient is planning to go back to the operating room either later today or tomorrow. The patient's blood gases are reasonable. Vent settings are reasonable. The patient remains on propofol at 20 mcg/kg/m, and norepinephrine at 10 mcg/m. The patient's and chronic atrial fibrillation. We'll give the patient some additional volume. I told no she can use a small amount of metoprolol IV, i.e. 5 mg. Additional recommendations and suggestions are forthcoming. Prognosis is guarded. We will continue to follow the patient make recommendations were appropriate. Plan dated 12/11/2021. The patient apparently is going back to the operating room later today. I've asked the nurse to get a stat cortisol level. This is because of the increasing norepinephrine requirements and lower blood pressures. The patient was given Lasix 80 mg IV push the operations engineer. Little or no urine output was noted. The patient's BUN and creatinine has increased. Labs, x-rays, and medications are all reviewed. Prognosis is guarded. We will continue to follow and make recommendations where appropriate. The patient remains on Zosyn. Time with Patient: Greater than 30
[2021-12-11 11:37] LABS: Glucose,Whole Blood 162 mg/dL (75-99)
--- NOTE | 2021-12-11 12:02 | P.PN ---
Subjective Progress Note Date: 12/11/21 71-year-old lady is admitted to ICU strangulated hernia and surgery for the same. We're involved in her care because of atrial fibrillation. She remains in A. fib with poorly controlled ventricular rate. I started her on IV Lopressor yesterday which is controlling her heart rate better. This morning she remains intubated on vent and she is to undergo another exploratory laparotomy later today. She is on Levophed for hypotension. On exam: Patient is intubated on the ventilator sedated blood pressure is 90/60 heart rate is 110 bpm irregular chest exam reveals diminished air entry bilaterally with occasional rhonchi heart exam reveals first and second heart sounds are regular rhythm and a systolic murmur abdomen is status post surgery examination extremities reveals bilateral pitting edema with diminished peripheral pulses Labs show that the hemoglobin is 12.9 BUN/creatinine are elevated blood gases show a pH of 7.3 pO2 of 108 and O2 sat of 98% Assessment and plan: Persistent atrial fibrillation with poorly controlled ventricular rate Hypotension Strangulated hernia status post surgery with ischemic bowel Vent requiring respiratory failure Patient will continue with the IV Lopressor Objective - Vital Signs Vital signs: Vital Signs Temp 99.2 F 12/11/21 08:00 Pulse 118 H 12/11/21 11:00 Resp 27 H 12/11/21 11:00 BP 106/52 12/11/21 11:00 Pulse Ox 96 12/11/21 11:00 Intake & Output 12/10/21 12/11/21 12/11/21 18:59 06:59 18:59 Intake Total 4435.592 2898.302 833.000 Output Total 1000 5960 665 Balance 3435.592 -3061.698 168.000 Weight 147.6 kg Intake: IV 4050 1700 575 Lactated Ringers 1,000 ml 1050 1200 500 @ 100 mls/hr IV .Q10H [facility] Rx#:[id number] Piperacillin-Tazobactam 3 75 .375 gm In Sodium Chloride 0.9% 100 ml @ 25 mls/hr IVPB Q12H [facility] Rx# :[id number] Sodium Chloride 0.9% 2, 3000 000 ml @ 999 mls/hr IV . Q2H1M [facility] Rx#:[id number] Sodium Chloride 0.9% 500 500 ml 500 ml @ 999 mls/hr IV .Q31M [facility] Rx#:[id number] Intake, IV Titration 869.486 1009.302 258.000 Amount Norepinephrine 8 mg In 224.257 949.318 258.000 Sodium Chloride 0.9% 250 ml @ 0.05 MCG/KG/MIN 12. 507 mls/hr IV .[id number] [facility] Rx#:[id number] propofoL 1,000 mg In 161.335 248.984 Empty Bag 1 bag @ Titrate IV .Q0M [facility] Rx#: [id number] Output: Drainage 1000 5950 650 Abdomen 1000 5950 650 Urine 0 10 15 Other: Voiding Method Indwelling Catheter Indwelling Catheter Indwelling Catheter ABP, PAP, CO, CI - Last Documented Arterial Blood Pressure 96/62 - Labs CBC & Chem 7: 12/11/21 04:13 12/11/21 04:13 Labs: Abnormal Lab Results - Last 24 Hours (Table) 12/11/21 12/11/21 12/11/21 Range/Units 04:13 04:13 04:30 WBC 18.5 H (3.8-10.6) k/uL MCHC 29.8 L (31.0-37.0) g/dL RDW 16.1 H (11.5-15.5) % Neutrophils # 15.0 H (1.3-7.7) k/uL ABG O2 Saturation (94-97) % Sodium 133 L (137-145) mmol/L Potassium 5.4 H (3.5-5.1) mmol/L Carbon Dioxide 19 L (22-30) mmol/L BUN 42 H (7-17) mg/dL Creatinine 3.27 H (0.52-1.04) mg/dL Glucose 155 H (74-99) mg/dL POC Glucose (mg/dL) 131 H (75-99) mg/dL Calcium 7.6 L (8.4-10.2) mg/dL Alkaline Phosphatase 37 L (38-126) U/L Total Protein 4.8 L (6.3-8.2) g/dL Albumin 2.2 L (3.5-5.0) g/dL 12/11/21 12/11/21 Range/Units 05:27 11:35 WBC (3.8-10.6) k/uL MCHC (31.0-37.0) g/dL RDW (11.5-15.5) % Neutrophils # (1.3-7.7) k/uL ABG O2 Saturation 98.2 H (94-97) % Sodium (137-145) mmol/L Potassium (3.5-5.1) mmol/L Carbon Dioxide (22-30) mmol/L BUN (7-17) mg/dL Creatinine (0.52-1.04) mg/dL Glucose (74-99) mg/dL POC Glucose (mg/dL) 162 H (75-99) mg/dL Calcium (8.4-10.2) mg/dL Alkaline Phosphatase (38-126) U/L Total Protein (6.3-8.2) g/dL Albumin (3.5-5.0) g/dL Microbiology - Last 24 Hours (Table) 12/09/21 21:30 Gram Stain - Preliminary Sputum Sputum Culture - Preliminary
[2021-12-11] MEDS ORDERED: ROCURONIUM 10 MG/ML (5 ML VIAL) IV ONE (13:35)
[2021-12-11] MEDS ORDERED: fentaNYL (PF) 50 MCG/ML 2 ML AMP ONE (13:35)
[2021-12-11] MEDS ORDERED: LACTATED RINGERS 300 ML IV ONE (13:36)
--- NOTE | 2021-12-11 14:42 | P.PN ---
Subjective Progress Note Date: 12/11/21 History of present illness per H&P: Patient is a 71-year-old female with a history of A. fib anticoagulated on Coumadin, history of prior pulmonary embolism and DVT with known MTHFR, systolic congestive heart failure with ejection fraction 45-50% (recovered from 30-35%) and chronic kidney disease stage IV following with nephrology on an outpatient basis who presented for abdominal wall hernia that is no longer reducible. On arrival she was found to be tachycardic. Laboratory analysis showed a white blood cell count of 13.8, creatinine was near her baseline at 2.13 consistent with her chronic kidney disease stage IV, glucose was mildly elevated at 153 on the laboratory analysis is otherwise unremarkable. She underwent a CT abdomen and pelvis which demonstrated a large lower anterior abdominal wall ventral hernia containing multiple bowel loops without signs of obstruction. In the emergency department she was started on Zosyn, IV fluids, and pain medications. She was placed in observation for further surgical evaluation. Patient seen adnexamined at bedside. Has abdominal wall hernia that was reproducible until yesterday. Now having pain at the hernia site that wraps to her back. Had a bowel movement where she had to bare down and then noticed that it was no longer reducible. + nuasea with vomiting X 1. No dificulty with urination. + Shortness of breath after this incident. She uses a walker at baseline. She is independent with bathing and dressing as well as meal prep. She does have assistance with cleaning. She is able to walk for steroids at this time with physical therapy, but has been unable to leave her house. She is unable to walk a full flight of stairs. She denies any recent episodes of chest pain or syncope. Status post exploratory laparotomy, excision of umbilicus and hernia sac, small bowel resection, reduction of ventral hernia and wound VAC placement on December 09 Interval history: Patient was seen and examined at the bedside. Still sedated and intubated. Objective - Vital Signs Vital signs: Vital Signs Temp 99.4 F 12/11/21 12:00 Pulse 124 H 12/11/21 13:15 Resp 25 H 12/11/21 13:15 BP 86/57 12/11/21 13:15 Pulse Ox 96 12/11/21 13:15 Intake & Output 12/10/21 12/11/21 12/11/21 18:59 06:59 18:59 Intake Total 4435.592 2898.302 1224.527 Output Total 1000 5960 665 Balance 3435.592 -3061.698 559.527 Weight 147.6 kg Intake: IV 4050 1700 875 Lactated Ringers 1,000 ml 1050 1200 800 @ 100 mls/hr IV .Q10H [facility] Rx#:[id number] Piperacillin-Tazobactam 3 75 .375 gm In Sodium Chloride 0.9% 100 ml @ 25 mls/hr IVPB Q12H [facility] Rx# :[id number] Sodium Chloride 0.9% 2, 3000 000 ml @ 999 mls/hr IV . Q2H1M [facility] Rx#:[id number] Sodium Chloride 0.9% 500 500 ml 500 ml @ 999 mls/hr IV .Q31M [facility] Rx#:[id number] Intake, IV Titration 408.264 1560.302 349.527 Amount Norepinephrine 8 mg In 224.257 949.318 258.000 Sodium Chloride 0.9% 250 ml @ 0.05 MCG/KG/MIN 12. 507 mls/hr IV .[id number] [facility] Rx#:[id number] propofoL 1,000 mg In 161.335 248.984 91.527 Empty Bag 1 bag @ Titrate IV .Q0M [facility] Rx#: [id number] Output: Drainage 1000 5950 650 Abdomen 1000 5950 650 Urine 0 10 15 Other: Voiding Method Indwelling Catheter Indwelling Catheter Indwelling Catheter ABP, PAP, CO, CI - Last Documented Arterial Blood Pressure 93/58 - Exam General: Patient intubated Derm: warm, dry Head: atraumatic, normocephalic, symmetric Eyes: EOMI, no lid lag, anicteric sclera Mouth: no lip lesion, mucus membranes moist Cardiovascular: Irregular regular rhythm. A. fib Lungs: CTA bilateral, no rhonchi, no rales , no accessory muscle use Abdominal: Soft without bowel sounds. [address] Abdomen is open Ext: no gross muscle atrophy, no edema, no contractures Neuro: Cannot be assessed patient is sedated - Labs CBC & Chem 7: 12/11/21 04:13 12/11/21 04:13 Labs: Abnormal Lab Results - Last 24 Hours (Table) 12/11/21 12/11/21 12/11/21 Range/Units 04:13 04:13 04:30 WBC 18.5 H (3.8-10.6) k/uL MCHC 29.8 L (31.0-37.0) g/dL RDW 16.1 H (11.5-15.5) % Neutrophils # 15.0 H (1.3-7.7) k/uL ABG O2 Saturation (94-97) % Sodium 133 L (137-145) mmol/L Potassium 5.4 H (3.5-5.1) mmol/L Carbon Dioxide 19 L (22-30) mmol/L BUN 42 H (7-17) mg/dL Creatinine 3.27 H (0.52-1.04) mg/dL Glucose 155 H (74-99) mg/dL POC Glucose (mg/dL) 131 H (75-99) mg/dL Calcium 7.6 L (8.4-10.2) mg/dL Alkaline Phosphatase 37 L (38-126) U/L Total Protein 4.8 L (6.3-8.2) g/dL Albumin 2.2 L (3.5-5.0) g/dL 12/11/21 12/11/21 Range/Units 05:27 11:35 WBC (3.8-10.6) k/uL MCHC (31.0-37.0) g/dL RDW (11.5-15.5) % Neutrophils # (1.3-7.7) k/uL ABG O2 Saturation 98.2 H (94-97) % Sodium (137-145) mmol/L Potassium (3.5-5.1) mmol/L Carbon Dioxide (22-30) mmol/L BUN (7-17) mg/dL Creatinine (0.52-1.04) mg/dL Glucose (74-99) mg/dL POC Glucose (mg/dL) 162 H (75-99) mg/dL Calcium (8.4-10.2) mg/dL Alkaline Phosphatase (38-126) U/L Total Protein (6.3-8.2) g/dL Albumin (3.5-5.0) g/dL Microbiology - Last 24 Hours (Table) 12/09/21 21:30 Gram Stain - Preliminary Sputum Sputum Culture - Preliminary Assessment and Plan Assessment: Assessment and plan: Septic Shock from Small Bowel Necrosis and Perforation Strangulated abdominal wall hernia to the left of the umbilicus containing loops of bowel Postop day #2, status post exploratory laparotomy, excision of umbilicus hernia sac, small bowel resection, reduction of ventral hernia, and wound VAC placement. -The plan is to take the patient back to the operating room on 12/11/2021. -levophed -propofol -dilaudid PRN -Surgery consultation -Hold Coumadin until clered by surgery -Perico Acute ventilatory dependent respiratory failure secondary to above -Vent management per critical care Atrial fibrillation with RVR - anticoagulated with Coumadin at baseline -IV Lopressor for rate control per cardiology Cardiomyopathy with ejection fraction 45-50% -Not chronically on CHARLES inhibitor, resume IV metoprolol -Continue with tele -cardiology following Acute kidney injury possibly secondary to ATN -Worse -Patient currently oliguric due to hypotension and septic shock -Nephrology managing Chronic kidney disease stage IV Hypercoaguability with MTHFR History of DVT and pulmonary embolism -on heparin TID for DVT PPx Severe obesity with BMI 52.1 outpt weight loss referral History of osteoarthritis. History of uterine cancer. History of gout. DVT prophylaxis: heparin TID Condition is critical
--- NOTE | 2021-12-11 14:50 | PN ---
PROGRESS NOTE Patient is seen for followup for acute kidney injury. The patient has become increasingly hypotensive requiring increasing amounts of Levophed. Urine output remains low. She did receive a dose of Lasix early this morning, 80 mg with no improvement in urine output. FiO2 remains at 30% and there are plans to take the patient back to the OR today. PHYSICAL EXAMINATION: On examination today, patient is sedated. She is on the vent. Blood pressure this morning was 108/72. Heart rate about 120 per minute. She is afebrile. Examination of the heart S1, S2. Examination of the lungs, bilateral breath sounds are heard. Examination of lower extremities shows edema 1+ bilaterally. Abdomen is soft. Increase drainage noted from the abdominal wound. CONTRACTS ANALYST exam cannot be assessed. LAB: Show sodium of 133, potassium 5.4, chloride 106, CO2 is 19, BUN 42, creatinine 3.27. ASSESSMENT: 1. Acute kidney injury, acute tubular necrosis secondary to hypotension, currently oliguric with no response to IV Lasix. The patient will require renal replacement therapy. Her potassium is already slightly higher today and expected to worsen tomorrow. We will proceed with vascular surgery consult and placement of dialysis catheter for first treatment for tomorrow if the patient remains hemodynamically stable. 2. Mild hyperkalemia associated with acute kidney injury. 3. Shock with severe hypotension, mostly related to intraabdominal sepsis. 4. Strangulated ventral hernia with bowel necrosis, status post bowel resection with plans for patient to be taken back to the OR. 5. Metabolic acidosis associated with acute kidney injury and GI fluid loss. 6. Chronic kidney disease and NKF stage 4 with baseline creatinine 2-2.5 mg/dL. No evidence of proteinuria on UA. 7. Chronic atrial fibrillation. 8. Cardiomyopathy with ejection fraction 40-45% previously. PLAN: Consult vascular surgery and we will plan for first treatment of hemodialysis in a.m. if patient remains hemodynamically stable. I do not believe she is an ideal candidate for dobutamine given her atrial fibrillation with RVR. The patient is being seen by Cardiology. MMODL / IJN: [id number] /
[2021-12-11] MEDS ORDERED: LACTATED RINGERS 1,000 ML IV ONE (15:06)
--- NOTE | 2021-12-11 15:24 | P.OP ---
Date of Procedure: 12/11/21 Preoperative Diagnosis: Strangulated ventral hernia with ischemic perforation, sepsis, questionable viability of the majority of the small bowel with need for second look, oral anticoagulation with history of hypercoagulable state, morbid obesity with BMI extending aches in excess of 50 Postoperative Diagnosis: Strangulated ventral hernia, Patchy ischemia and necrosis of 220 cm segment of small bowel encompassing ileum and jejunum, 130 cm of proximal viable small bowel to the ligament of Treitz. Procedure(s) Performed: Second Look laparotomy with abdominal exploration, resection of 220 cm necrotic small bowel segment, right hemicolectomy, temporary abdominal closure with Apthera VAC. Anesthesia: ALICE Surgeon: Chapincito Amezcua Estimated Blood Loss (ml): 15 Pathology: other (220 cm necrotic small bowel resection specimen, right hemicolectomy specimen, cultures from intra-abdominal fluid for aerobes, anaerobes and Gram stain.) Condition: critical Disposition: ICU Indications for Procedure: Patient is a 71-year-old lady who presented to [facility] emergency department and the very special education director hours of 12/09/2021 with 24 hours of progressive pain at the site of a chronic ventral hernia. She tells me it's been incarcerated for the past 24 hours following an acute bout of constipation. It's been present for several decades she hasn't undergone previous attempts at repair. Computed tomography scan of the pelvis and confirmed a ventral hernia without mention of small bowel obstruction no free air, no free fluid, no pneumatosis. A mild leukocytosis at around 14,000. She has a significant medical history for stage IV chronic kidney disease and cardiorenal syndrome as well as morbid obesity with BMI in excess of 50, hypercoagulable state with empty HF R mutation and atrial fibrillation with remote left lower extremity DVT and pulmonary embolus maintained on Coumadin. I was unable to get the hernia to reduce at bedside, the physical exam revealed skin necrosis at the umbilicus and the patient was quite tender over the area. It was felt that especially given skin necrosis nonoperative management is not in a be an option for her and despite risks of all manner of complications in the perioperative and postoperative timeframes in the setting of the aforementioned significant medical history patient wishes to move forward with the exploratory laparotomy, other indicated procedures. She gave informed consent for the same after discussion of risks, benefit alternatives treatment. INR was just above 1.7 preoperatively, she received 2 units of FFP during the course of the case to mitigate bleeding risk. She was taken to the operating room revealing incarcerated ventral hernia with a rather narrow neck at around 7 cm or so. After getting the bowel reduced there was a nearly 300 cm small bowel segment of questionable viability and all more focal area of discrete necrosis along the ileum with a contained perforation seen along the mesentery. This 30 cm segment was resected, given the length of the questionable segment it was felt that efforts at the preservation issue be made give the patient some time to demarcate or recover. As such of temporary abdominal closure devices placed, patient left intubated and transitioned to the ICU. She had a lingering intermittent pressor requirement. Patient's in need of second look laparotomy to assess for need for additional bowel resection. Patient's son gave informed consent for the same after discussion of risks, and alternatives to treatment. He is aware that her prognosis remains quite guarded. Operative Findings: As above Description of Procedure: Patient was taken to the operative suite and placed in the supine position. Following induction of general endotracheal anesthesia previous Apthera wound VAC dressing was taken down revealing [place] necrosis of underlying small bowel but no evidence of perforation. Patient was prepped and draped in sterile fashion and the abdomen formally explored. The area of questionable viability now displayed areas of [place] necrosis particularly along the antimesenteric aspect with some intervening very small segments of viability. The remaining necrotic segment measured some 220 cm. There was viable well-perfused bowel back to the level of the ligament of Treitz measuring 130 cm. The distal aspect of the necrotic margin was a right adjacent to the ileocecal valve. Patient has stage IV chronic kidney disease as been relatively oliguric over her stay in the ICU. I don't think she is consented to well with an ileostomy at all, that would likely put her squarely on the patht towards long-term hemodialysis. The frankly necrotic at 220 cm small bowel segment was excised with LigaSure along the mesentery, the bowel was transected proximally at an area of viability with a blue staple load. Right hemicolectomy was then performed up to just to the right of the middle colic to allow for well-perfused side to side ileocolonic anastomosis. Patient continued with a slightly increased pressor requirement on the table, in my view anastomosis presently would be quite tenuous. As such a 19-Maltese Arjun drain was placed in the pelvis for control of her intra-a bdominal predominantly serous fluid collection and connected to suction. The temporary abdominal closure device with Apthera was replaced, connected to suction without leak and patient transferred back to the ICU intubated and in condition similar to where she was only started the case. She'll be kept Sedated on the ventilator overnight and will anticipate her return to the operating room tomorrow. If her pressors can be weaned will pursue anastomosis and fascial closure, if things still look questionable I may have no choice but to mature an enterostomy. The aforementioned plans were discussed with the patient's son in the ICU waiting area, he is in agreement with our plans for tomorrow. He is aware that her prognosis remains quite guarded but them optimistic that we'll be able to get her through this.
[2021-12-11 15:35] LABS: Glucose,Whole Blood 143 mg/dL (75-99)
[2021-12-11] MEDS ORDERED: LIDOCAINE 1% INJ 10MG/ML (20 ML MDV) ONE (16:57)
[2021-12-11 17:34] LABS: Glucose,Whole Blood 130 mg/dL (75-99)
--- NOTE | 2021-12-11 17:43 | P.GSCN ---
History of Present Illness History of present illness: 71-year-old white female, I was consulted for placement of dialysis catheter. A shunt has history of acute kidney knee injury with metabolic acidosis the testicle is 4.4. Creatinine is 3.7. Patient has a strangulated ventral hernia patient had a small bowel resection. Patient was seen in the intensive. She has been intubated on examination neck is supple no bruit appreciated Chest good entry both lungs first and second sound present Abdomen Jess had a recently went to hernia surgery done Femorals are 1+ bilateral Plan is placement of a dialysis catheter risk and complication discussed Past Medical History Past Medical History: Atrial Fibrillation, Blood Disorder, Cancer, Heart Failure, Deep Vein Thrombosis (DVT), Hypertension, Osteoarthritis (OA), Pulmonary Embolus (PE), Renal Disease Additional Past Medical History / Comment(s): mthfr, uterine cancer, gout, anemia. uses 4 prong cane OR WALKER when up. BACK PAIN, chronic kidney disease History of Any Multi-Drug Resistant Organisms: None Reported Past Surgical History: Hysterectomy, Orthopedic Surgery Additional Past Surgical History / Comment(s): plate and screws in right ankle, picc line-since removed, cortisone injections to knees Past Anesthesia/Blood Transfusion Reactions: No Reported Reaction Additional Past Anesthesia/Blood Transfusion Reaction / Comm: past blood transfusions-no reactions Past Psychological History: Depression Additional Psychological History / Comment(s): PAST HISTORY DEPRESSION (2018) no longer takes antidepressants Smoking Status: Never smoker Past Alcohol Use History: None Reported Past Drug Use History: None Reported - Past Family History Mother Family Medical History: Cancer Additional Family Medical History / Comment(s): BREAST Father Family Medical History: Coronary Artery Disease (CAD) Medications and Allergies Home Medications Medication Instructions Recorded Confirmed Type Allopurinol 100 mg PO BID 07/21/14 12/09/21 History Warfarin [Coumadin] 2.5 mg PO [id number]@1800 07/21/14 12/09/21 History traMADol HCL [Tramadol HCl] 100 mg PO BID 07/21/14 12/09/21 History Gabapentin [Neurontin] 100 mg PO BID 07/10/18 12/09/21 History Cholecalciferol [Vitamin D3 (25 50 mcg PO DAILY 10/10/21 12/09/21 History Mcg = 1000 Iu)] Folic Acid 0.8 mg PO DAILY 10/10/21 12/09/21 History Furosemide [Lasix] 40 mg PO DAILY 12/09/21 12/09/21 History Metoprolol Tartrate 12.5 mg PO BID 12/09/21 12/09/21 History Allergies Allergy/AdvReac Type Severity Reaction Status Date / Time aspirin Allergy Rash/Hives Verified 12/09/21 14:29 codeine Allergy Itching Verified 12/09/21 14:29 Surgical - Exam Vital Signs Temp Pulse Resp BP Pulse Ox 98.0 F 112 H 18 143/94 95 12/09/21 02:09 12/09/21 02:09 12/09/21 02:09 12/09/21 02:09 12/09/21 02:09 Results - Labs 12/11/21 04:13 12/11/21 04:13 Abnormal Lab Results - Last 24 Hours (Table) 12/11/21 12/11/21 12/11/21 Range/Units 04:13 04:13 04:30 WBC 18.5 H (3.8-10.6) k/uL MCHC 29.8 L (31.0-37.0) g/dL RDW 16.1 H (11.5-15.5) % Neutrophils # 15.0 H (1.3-7.7) k/uL ABG O2 Saturation (94-97) % Sodium 133 L (137-145) mmol/L Potassium 5.4 H (3.5-5.1) mmol/L Carbon Dioxide 19 L (22-30) mmol/L BUN 42 H (7-17) mg/dL Creatinine 3.27 H (0.52-1.04) mg/dL Glucose 155 H (74-99) mg/dL POC Glucose (mg/dL) 131 H (75-99) mg/dL Calcium 7.6 L (8.4-10.2) mg/dL Alkaline Phosphatase 37 L (38-126) U/L Total Protein 4.8 L (6.3-8.2) g/dL Albumin 2.2 L (3.5-5.0) g/dL 12/11/21 12/11/21 12/11/21 Range/Units 05:27 11:35 15:33 WBC (3.8-10.6) k/uL MCHC (31.0-37.0) g/dL RDW (11.5-15.5) % Neutrophils # (1.3-7.7) k/uL ABG O2 Saturation 98.2 H (94-97) % Sodium (137-145) mmol/L Potassium (3.5-5.1) mmol/L Carbon Dioxide (22-30) mmol/L BUN (7-17) mg/dL Creatinine (0.52-1.04) mg/dL Glucose (74-99) mg/dL POC Glucose (mg/dL) 162 H 143 H (75-99) mg/dL Calcium (8.4-10.2) mg/dL Alkaline Phosphatase (38-126) U/L Total Protein (6.3-8.2) g/dL Albumin (3.5-5.0) g/dL 12/11/21 Range/Units 17:33 WBC (3.8-10.6) k/uL MCHC (31.0-37.0) g/dL RDW (11.5-15.5) % Neutrophils # (1.3-7.7) k/uL ABG O2 Saturation (94-97) % Sodium (137-145) mmol/L Potassium (3.5-5.1) mmol/L Carbon Dioxide (22-30) mmol/L BUN (7-17) mg/dL Creatinine (0.52-1.04) mg/dL Glucose (74-99) mg/dL POC Glucose (mg/dL) 130 H (75-99) mg/dL Calcium (8.4-10.2) mg/dL Alkaline Phosphatase (38-126) U/L Total Protein (6.3-8.2) g/dL Albumin (3.5-5.0) g/dL Microbiology - Last 24 Hours (Table) 12/09/21 21:30 Gram Stain - Preliminary Sputum Sputum Culture - Preliminary Diabetes panel 12/11/21 Range/Units 04:13 Sodium 133 L (137-145) mmol/L Potassium 5.4 H (3.5-5.1) mmol/L Chloride 106 (98-107) mmol/L Carbon Dioxide 19 L (22-30) mmol/L BUN 42 H (7-17) mg/dL Creatinine 3.27 H (0.52-1.04) mg/dL Glucose 155 H (74-99) mg/dL Calcium 7.6 L (8.4-10.2) mg/dL AST 22 (14-36) U/L ALT 7 (4-34) U/L Alkaline Phosphatase 37 L (38-126) U/L Total Protein 4.8 L (6.3-8.2) g/dL Albumin 2.2 L (3.5-5.0) g/dL Calcium panel 12/11/21 Range/Units 04:13 Calcium 7.6 L (8.4-10.2) mg/dL Albumin 2.2 L (3.5-5.0) g/dL Pituitary panel 12/11/21 Range/Units 04:13 Sodium 133 L (137-145) mmol/L Potassium 5.4 H (3.5-5.1) mmol/L Chloride 106 (98-107) mmol/L Carbon Dioxide 19 L (22-30) mmol/L BUN 42 H (7-17) mg/dL Creatinine 3.27 H (0.52-1.04) mg/dL Glucose 155 H (74-99) mg/dL Calcium 7.6 L (8.4-10.2) mg/dL Adrenal panel 12/11/21 Range/Units 04:13 Sodium 133 L (137-145) mmol/L Potassium 5.4 H (3.5-5.1) mmol/L Chloride 106 (98-107) mmol/L Carbon Dioxide 19 L (22-30) mmol/L BUN 42 H (7-17) mg/dL Creatinine 3.27 H (0.52-1.04) mg/dL Glucose 155 H (74-99) mg/dL Calcium 7.6 L (8.4-10.2) mg/dL Total Bilirubin 0.7 (0.2-1.3) mg/dL AST 22 (14-36) U/L ALT 7 (4-34) U/L Alkaline Phosphatase 37 L (38-126) U/L Total Protein 4.8 L (6.3-8.2) g/dL Albumin 2.2 L (3.5-5.0) g/dL
--- NOTE | 2021-12-11 17:46 | P.PCN ---
Description of Procedure: Preoperative diagnosis acute kidney injury with mild hyperkalemia post cannulated ventral hernia Postoperative same Placement of a dialysis catheter ultrasound-guided right femoral approach 1% lidocaine for infected ultrasound-guided micropuncture introduced right femoral vein micropuncture guidewire was passed and 4-Czech dilator. The guidewire. Then replaced a regular guidewire without any resistance dilator were advanced. The guidewire then we'll place a dialysis catheter on the top of the guidewire guidewire was removed flushed with heparin saline and secured with 3-0 nylon pressure dressing applied patient tolerated the procedure well
[2021-12-11 23:43] LABS: Glucose,Whole Blood 141 mg/dL (75-99)
[2021-12-12 02:11] LABS: Hepatitis B Surface Antibody Reactive (Nonreactive)
[2021-12-12] MEDS: NOREPINEPHRINE 8 MG in SODIUM CHLORIDE 0.9% 250 ML IV SCH ×3 (04:34→14:37)
[2021-12-12] MEDS: LACTATED RINGERS 1,000 ML IV SCH ×2 (04:35→12:24)
[2021-12-12 05:14] LABS: Anisocytosis Slight; Basophils % (A) 0 %; Eosinophils % (A) 0 %; HGB 11.4 gm/dL (11.4-16.0); Hypochromasia Marked; Lymphocytes # (A) 1.5 k/uL (1.0-4.8); Lymphocytes % (A) 7 %; MCHC 30.8 g/dL (31.0-37.0); MCV 97.6 fL (80.0-100.0); Macrocytosis Slight; Mean Platelet Volume 8.3; Monocytes # (A) 1.1 k/uL (0-1.0); Monocytes % (A) 5 %; Neutrophils # (A) 18.9 k/uL (1.3-7.7); Neutrophils % (A) 86 %; Platelet Count 328 k/uL (150-450); RBC 3.79 m/uL (3.80-5.40); RDW 16.5 % (11.5-15.5); WBC 21.9 k/uL (3.8-10.6)
[2021-12-12 05:29] LABS: Albumin 2.1 g/dL (3.5-5.0); Calcium 7.5 mg/dL (8.4-10.2); Potassium 5.2 mmol/L (3.5-5.1); Total Bilirubin 0.5 mg/dL (0.2-1.3); Total Protein 4.6 g/dL (6.3-8.2)
[2021-12-12 05:39] LABS: ABG Base Excess -6.6 mmol/L; ABG HCO3 19 mmol/L (21-25); ABG Oxygen Saturation 95.2 % (94-97); ABG PCO2 35 mmHg (35-45); ABG PH 7.35 (7.35-7.45); ABG PO2 79 mmHg (83-108); ABG TCO2 20 mmol/L (19-24)
[2021-12-12 05:59] LABS: Allen Test Performed? no
[2021-12-12] MEDS: PIPERACILLIN-TAZOBACTAM 3.375 GM in SODIUM CHLORIDE 0.9% 100 ML IVPB SCH ×2 (06:39→19:10)
[2021-12-12 07:03] LABS: Hepatitis B Surface Antigen Nonreactive (Nonreactive)
--- NOTE | 2021-12-12 08:22 | XR ---
EXAMINATION TYPE: XR chest 1V portable DATE OF EXAM: 12/12/2021 COMPARISON: X-ray dated 12/11/2021 HISTORY: Tube placement TECHNIQUE: Single frontal view of the chest is obtained. FINDINGS: The tip of endotracheal tube is about 3.4 cm proximal to the ravi. NG tube is seen with the tip is inferior to the diaphragm, outside the [id number]. Right central venous line with the tip is likel y within the right atrium. Persistent opacity in the left midlung zone and bilateral lower lung zones more on the right side, un derlying infection, pulmonary edema or consolidation/collapse cannot be excluded, please correlate cl inically. Suspected pleural effusions more on the left side. Unchanged cardiomediastinal silhouette a nd bony thoracic cage. IMPRESSION: Grossly stable pulmonary changes. Tube placement as described above.
[2021-12-12] MEDS: HEPARIN SODIUM,PORCINE/PF 5,000 UNIT/0.5 ML SYRINGE SQ SCH ×2 (08:26→19:09)
[2021-12-12] MEDS: CHLORHEXIDINE GLUCONATE 15 ML CUP MUCOUS MEM SCH ×2 (08:26→21:46)
[2021-12-12] MEDS: PANTOPRAZOLE 40 MG/10 ML VIAL IV SCH (08:26)
--- NOTE | 2021-12-12 09:59 | P.PN ---
Subjective Progress Note Date: 12/12/21 Principal diagnosis: Ventilator management. Pulmonary consult dated 12/10/2021. 71-year-old female seen in room 250. The patient is postop day #1, status post exploratory laparotomy, excision of umbilicus and hernia sac, small bowel resection, reduction of ventral hernia, and wound VAC placement. We are seeing the patient for the first time in the intensive care unit. She remains on the ventilator. She apparently is being taken back to the operating room either later today or tomorrow. She is on volume assist control, rate 24, tidal volume 350, FiO2 40%, and PEEP of 5. Blood gases show pO2 83, CO2 37, and pH is 7.44. The patient is on propofol at 20 mcg/kg/m, saline at 50 mL an hour, and norepinephrine at 0.07 mcg/kg/m, which is roughly 10 mcg/m. The patient was initially seen in the emergency department on December 09, with severe abdominal pain. White count 16, hemoglobin 11.5, hematocrit 37.6, platelet count 323,000. PT 20.6, INR 2.1. Sodium 134, potassium 4.7, chlorides 106, CO2 24, anion gap 4, BUN 38, creatinine 2.26. Albumin is 2.4. Urine was negative. Chest x-ray showed diffuse bilateral infiltrates with small effusions. Progress note dated 12/11/2021. 71-year-old female, again seen in room 250. She is postop day #2, status post exploratory laparotomy, excision of umbilicus and hernia sac, small bowel resection, reduction of ventral hernia, and wound VAC placement. The patient apparently is going back to the operating room later today. The patient remains on the ventilator. She is on volume assist control, rate 24, tidal volume 350, FiO2 30%, PEEP of 5. Arterial blood gases show pO2 108, pCO2 35, and pH is 7.38. The patient is on lactated Ringer's at 100 mL an hour, propofol at 20 mcg/kg/m, and norepinephrine, at 35 mcg/m. I've asked the nurse to get a stat cortisol level, and apparently she was given Lasix 80 mg by nephrology earlier this morning, and has had less than 10 mL of urine output. White count 18.5, hemoglobin 12.9, hematocrit 43.5, platelet count 393,000. Sodium 133, potassium I.4, chlorides 106, CO2 19, anion gap 8, BUN 42, and creatinine 3.27. Microbiologic studies are thus far negative. Chest x-ray shows diffuse bilateral airspace disease. Endotracheal tube and NG tube are noted. Progress note dated 12/12/2021. 71-year-old female, again seen in room 250. She's postop day #3, status post ex ploratory laparotomy, excision of umbilicus and hernia sac, small bowel resection, reduction of ventral hernia, and wound VAC placement. The patient went back to the operating room yesterday, and had 220 cm of small bowel removed. A hemodialysis catheter was placed. She will have hemodialysis today. Later today, the patient will go back to the operating room. She has a wound VAC in place, and a Gaetano-Ojeda drain as well. The patient remains on the ventilator. She is on the volume assist control mode, rate 24, tidal volume 350, FiO2 30%, and PEEP of 5. Arterial blood gases show pO2 of 78, pCO2 35, and a pH is 7.35. The patient is on norepinephrine, at 30 mcg/m, lactated Ringer's at 100 mL an hour, and propofol at 20 mcg/kg/m. White count 21.9, hemoglobin 11.4, hematocrit 37, and platelet count 328,000. Sodium 133, potassium 5.2, chlorides 106, CO2 17, anion gap 10, BUN 50, and creatinine 4.13. Microbiologic studies are thus far negative. The patient's chest x-ray shows diffuse bilateral infiltrates. Stat cortisol level was 38. Objective - Vital Signs Vital signs: Vital Signs Temp 98.7 F 12/12/21 08:00 Pulse 125 H 12/12/21 09:45 Resp 22 12/12/21 09:45 BP 145/64 12/12/21 09:45 Pulse Ox 96 12/12/21 09:45 Intake & Output 12/11/21 12/12/21 12/12/21 18:59 06:59 18:59 Intake Total 2420.050 1840.786 550.979 Output Total 690 1830 20 Balance 1730.050 10.786 530.979 Weight 148.2 kg Intake: IV 1400 1250 300 Lactated Ringers 1,000 ml 900 1200 200 @ 100 mls/hr IV .Q10H [facility] Rx#:[id number] Piperacillin-Tazobactam 3 100 50 100 .375 gm In Sodium Chloride 0.9% 100 ml @ 25 mls/hr IVPB Q12H [facility] Rx# :[id number] Intake, IV Titration 1020.050 590.786 250.979 Amount Lactated Ringers 300 ml @ 200 0 mls/hr IV [facility] Rx#:[id number] Norepinephrine 8 mg In 628.523 490.786 250.979 Sodium Chloride 0.9% 250 ml @ 0.05 MCG/KG/MIN 12. 507 mls/hr IV .[id number] [facility] Rx#:[id number] propofoL 1,000 mg In 191.527 100 Empty Bag 1 bag @ Titrate IV .Q0M [facility] Rx#: [id number] Output: Gastric Drainage 150 Drainage 650 1665 Abdomen 650 625 Left Lower Abdomen 1040 Urine 15 15 20 Estimated Blood Loss 25 Other: Voiding Method Indwelling Catheter Indwelling Catheter ABP, PAP, CO, CI - Last Documented Arterial Blood Pressure 113/56 - Labs CBC & Chem 7: 12/12/21 04:40 12/12/21 04:40 Labs: Abnormal Lab Results - Last 24 Hours (Table) 12/11/21 12/11/21 12/11/21 Range/Units 04:13 11:35 15:33 WBC (3.8-10.6) k/uL RBC (3.80-5.40) m/uL MCHC (31.0-37.0) g/dL RDW (11.5-15.5) % Neutrophils # (1.3-7.7) k/uL Monocytes # (0-1.0) k/uL ABG pO2 (83-108) mmHg ABG HCO3 (21-25) mmol/L Sodium (137-145) mmol/L Potassium (3.5-5.1) mmol/L Carbon Dioxide (22-30) mmol/L BUN (7-17) mg/dL Creatinine (0.52-1.04) mg/dL Glucose (74-99) mg/dL POC Glucose (mg/dL) 162 H 143 H (75-99) mg/dL Calcium (8.4-10.2) mg/dL Alkaline Phosphatase (38-126) U/L Total Protein (6.3-8.2) g/dL Albumin (3.5-5.0) g/dL Hep Bs Antibody Reactive A (Nonreactive) 12/11/21 12/11/21 12/12/21 Range/Units 17:33 23:41 04:40 WBC 21.9 H (3.8-10.6) k/uL RBC 3.79 L (3.80-5.40) m/uL MCHC 30.8 L (31.0-37.0) g/dL RDW 16.5 H (11.5-15.5) % Neutrophils # 18.9 H (1.3-7.7) k/uL Monocytes # 1.1 H (0-1.0) k/uL ABG pO2 (83-108) mmHg ABG HCO3 (21-25) mmol/L Sodium (137-145) mmol/L Potassium (3.5-5.1) mmol/L Carbon Dioxide (22-30) mmol/L BUN (7-17) mg/dL Creatinine (0.52-1.04) mg/dL Glucose (74-99) mg/dL POC Glucose (mg/dL) 130 H 141 H (75-99) mg/dL Calcium (8.4-10.2) mg/dL Alkaline Phosphatase (38-126) U/L Total Protein (6.3-8.2) g/dL Albumin (3.5-5.0) g/dL Hep Bs Antibody (Nonreactive) 12/12/21 12/12/21 Range/Units 04:40 05:34 WBC (3.8-10.6) k/uL RBC (3.80-5.40) m/uL MCHC (31.0-37.0) g/dL RDW (11.5-15.5) % Neutrophils # (1.3-7.7) k/uL Monocytes # (0-1.0) k/uL ABG pO2 79 L (83-108) mmHg ABG HCO3 19 L (21-25) mmol/L Sodium 133 L (137-145) mmol/L Potassium 5.2 H (3.5-5.1) mmol/L Carbon Dioxide 17 L (22-30) mmol/L BUN 50 H (7-17) mg/dL Creatinine 4.13 H (0.52-1.04) mg/dL Glucose 148 H (74-99) mg/dL POC Glucose (mg/dL) (75-99) mg/dL Calcium 7.5 L (8.4-10.2) mg/dL Alkaline Phosphatase 30 L (38-126) U/L Total Protein 4.6 L (6.3-8.2) g/dL Albumin 2.1 L (3.5-5.0) g/dL Hep Bs Antibody (Nonreactive) Assessment and Plan Assessment: Postop day #3, status post exploratory laparotomy, excision of umbilicus hernia sac, small bowel resection, reduction of ventral hernia, and wound VAC placement. The patient was taken back to the operating room on December 11, and 220 cm of bowel was resected. Routine postoperative ventilator management, status post intubation on December 09. Acute kidney injury, to undergo hemodialysis on 12/12/2021. History of chronic atrial fibrillation. History of DVT. History of hypertension. History of pulmonary embolism. History of osteoarthritis. History of uterine cancer. History of gout. History of chronic kidney disease. Presence of the MTHFR mutation. Plan: Plan dated 12/10/2021. The patient will not be extubated as the patient is planning to go back to the operating room either later today or tomorrow. The patient's blood gases are reasonable. Vent settings are reasonable. The patient remains on propofol at 20 mcg/kg/m, and norepinephrine at 10 mcg/m. The patient's and chronic atrial fibrillation. We'll give the patient some additional volume. I told no she can use a small amount of metoprolol IV, i.e. 5 mg. Additional recommendations and suggestions are forthcoming. Prognosis is guarded. We will continue to follow the patient make recommendations were appropriate. Plan dated 12/11/2021. The patient apparently is going back to the operating room later today. I've asked the nurse to get a stat cortisol level. This is because of the increasing norepinephrine requirements and lower blood pressures. 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 Little or no urine output was noted. The patient's BUN and creatinine has increased. Labs, x-rays, and medications are all reviewed. Prognosis is guarded. We will continue to follow and make recommendations where appropriate. The patient remains on Zosyn. Plan dated 12/12/2021. The patient went back to the operating room yesterday, and has some additional bowel resected. The patient remains on the mechanical ventilator. The patient had a hemodialysis catheter placed, and will undergo hemodialysis today. The plan is to take her back to the operating room later today. She has a wound VAC in place, and also a Gaetano-Ojeda drain. Labs, x-rays, and medications are reviewed. She remains on Zosyn. She also remains on norepinephrine at 30 mcg/m. I will add hydrocortisone 50 mg IV push every 6 hours. Prognosis is very guarded. We will continue to follow and make recommendations where appropriate. Time with Patient: Greater than 30
--- NOTE | 2021-12-12 10:35 | P.PN ---
Progress Note - Text Progress Note Date: 12/12/21 Patient seen and examined at bedside. Since yesterday she has required dialysis catheter placement and has started hemodialysis this morning. Chest x-ray shows persistent bilateral infiltrates, laboratory studies show a significant leukocytosis but her pressor requirement is starting to come down, mean arterial pressures are adequate. Patient looks slightly more arousable on the ventilator. Will anticipate return to the operating room this afternoon to make a determination as to whether to move forward with the anastomosis or ileostomy and fascial closure.
--- NOTE | 2021-12-12 10:58 | P.PN ---
Subjective Patient is seen for follow-up for acute kidney injury. She has underlying chronic kidney disease NKF stage IV with baseline creatinine about 2-2.5 mg/dL. Patient also has a history of cardiomyopathy with ejection fraction 40-45%. Patient was admitted to the hospital with abdominal pain and incarcerated ventral hernia with skin necrosis and bowel necrosis with perforation. Patient is status post explorative laparotomy on 12/09/2021 with excision of umbilicus and hernial sac reduction of ventral hernia. And small bowel resection. Postoperatively patient was hypotensive requiring levo fed. Her urine output has an minimal since her surgery. Patient was taken back to or yesterday and had further resection of her bowel. Levo fed is down slightly today. Patient continues to have no significant urine output. Vascular surgery was consulted for placement of dialysis catheter and we will be dialyzing the patient today. Patient remains on the vent FiO2 is at 30%. Objective - Vital Signs Vital signs: Vital Signs Temp 98.7 F 12/12/21 08:00 Pulse 137 H 12/12/21 10:00 Resp 14 12/12/21 10:00 BP 145/64 12/12/21 10:00 Pulse Ox 95 12/12/21 10:00 Intake & Output 12/11/21 12/12/21 12/12/21 18:59 06:59 18:59 Intake Total 2420.050 1840.786 650.979 Output Total 690 1830 30 Balance 1730.050 10.786 620.979 Weight 148.2 kg Intake: IV 1400 1250 400 Lactated Ringers 1,000 ml 900 1200 300 @ 100 mls/hr IV .Q10H [facility] Rx#:[id number] Piperacillin-Tazobactam 3 100 50 100 .375 gm In Sodium Chloride 0.9% 100 ml @ 25 mls/hr IVPB Q12H [facility] Rx# :[id number] Intake, IV Titration 1020.050 590.786 250.979 Amount Lactated Ringers 300 ml @ 200 0 mls/hr IV .STK-[facility] Rx#:[id number] Norepinephrine 8 mg In 628.523 490.786 250.979 Sodium Chloride 0.9% 250 ml @ 0.05 MCG/KG/MIN 12. 507 mls/hr IV .[id number] [facility] Rx#:[id number] propofoL 1,000 mg In 191.527 100 Empty Bag 1 bag @ Titrate IV .Q0M [facility] Rx#: [id number] Output: Gastric Drainage 150 Drainage 650 1665 Abdomen 650 625 Left Lower Abdomen 1040 Urine 15 15 30 Estimated Blood Loss 25 Other: Voiding Method Indwelling Catheter Indwelling Catheter Indwelling Catheter ABP, PAP, CO, CI - Last Documented Arterial Blood Pressure 106/55 - Exam Patient is sedated She is on the vent. Examination of the heart S1 and S2 Examination lungs bilateral breath sounds are heard Abdomen is soft wound is dressed large output from the abdominal incision Examination lower extremities shows 1+ edema SENIOR PATIENT ACCOUNT REPRESENTATIVE exam cannot be performed - Labs CBC & Chem 7: 12/12/21 04:40 12/12/21 04:40 Labs: Abnormal Lab Results - Last 24 Hours (Table) 12/11/21 12/11/21 12/11/21 Range/Units 04:13 11:35 15:33 WBC (3.8-10.6) k/uL RBC (3.80-5.40) m/uL MCHC (31.0-37.0) g/dL RDW (11.5-15.5) % Neutrophils # (1.3-7.7) k/uL Monocytes # (0-1.0) k/uL ABG pO2 (83-108) mmHg ABG HCO3 (21-25) mmol/L Sodium (137-145) mmol/L Potassium (3.5-5.1) mmol/L Carbon Dioxide (22-30) mmol/L BUN (7-17) mg/dL Creatinine (0.52-1.04) mg/dL Glucose (74-99) mg/dL POC Glucose (mg/dL) 162 H 143 H (75-99) mg/dL Calcium (8.4-10.2) mg/dL Alkaline Phosphatase (38-126) U/L Total Protein (6.3-8.2) g/dL Albumin (3.5-5.0) g/dL Hep Bs Antibody Reactive A (Nonreactive) 12/11/21 12/11/21 12/12/21 Range/Units 17:33 23:41 04:40 WBC 21.9 H (3.8-10.6) k/uL RBC 3.79 L (3.80-5.40) m/uL MCHC 30.8 L (31.0-37.0) g/dL RDW 16.5 H (11.5-15.5) % Neutrophils # 18.9 H (1.3-7.7) k/uL Monocytes # 1.1 H (0-1.0) k/uL ABG pO2 (83-108) mmHg ABG HCO3 (21-25) mmol/L Sodium (137-145) mmol/L Potassium (3.5-5.1) mmol/L Carbon Dioxide (22-30) mmol/L BUN (7-17) mg/dL Creatinine (0.52-1.04) mg/dL Glucose (74-99) mg/dL POC Glucose (mg/dL) 130 H 141 H (75-99) mg/dL Calcium (8.4-10.2) mg/dL Alkaline Phosphatase (38-126) U/L Total Protein (6.3-8.2) g/dL Albumin (3.5-5.0) g/dL Hep Bs Antibody (Nonreactive) 12/12/21 12/12/21 Range/Units 04:40 05:34 WBC (3.8-10.6) k/uL RBC (3.80-5.40) m/uL MCHC (31.0-37.0) g/dL RDW (11.5-15.5) % Neutrophils # (1.3-7.7) k/uL Monocytes # (0-1.0) k/uL ABG pO2 79 L (83-108) mmHg ABG HCO3 19 L (21-25) mmol/L Sodium 133 L (137-145) mmol/L Potassium 5.2 H (3.5-5.1) mmol/L Carbon Dioxide 17 L (22-30) mmol/L BUN 50 H (7-17) mg/dL Creatinine 4.13 H (0.52-1.04) mg/dL Glucose 148 H (74-99) mg/dL POC Glucose (mg/dL) (75-99) mg/dL Calcium 7.5 L (8.4-10.2) mg/dL Alkaline Phosphatase 30 L (38-126) U/L Total Protein 4.6 L (6.3-8.2) g/dL Albumin 2.1 L (3.5-5.0) g/dL Hep Bs Antibody (Nonreactive) Microbiology - Last 24 Hours (Table) 12/09/21 21:30 Gram Stain - Final Sputum Sputum Culture - Final Assessment and Plan Assessment: 1. Acute kidney injury ATN currently oliguric secondary to hypotension. Starting dialysis today 12/12/2021 2. Chronic kidney disease stage IV secondary to cardiorenal syndrome creatinine 2-2.5 mg/dL. No evidence of proteinuria on UA No hydronephrosis on CAT scan 3. Strangulated abdominal wall hernia with bowel necrosis status post explorative laparotomy with bowel resection and excision of umbilical hernia sac. Taken back to or yesterday on 12/11/2021 with further resection of the bowel and patient is likely going back to or today. 4. Chronic A. fib with episodes of tachycardia, currently being treated with IV Lopressor. 5. Cardiomyopathy with ejection fraction of 40-45% previously 6. Hyperkalemia associated with acute kidney injury, expect improvement with dialysis Plan: Hemodialysis today and then again in a.m. May continue with IV fluids as patient continues to have significant output from the abdominal drain although it has slowed down from 2 days ago
[2021-12-12 11:22] LABS: Glucose,Whole Blood 154 mg/dL (75-99)
--- NOTE | 2021-12-12 11:38 | P.PN ---
Subjective Patient remains intubated and on vent developed renal failure and has been started on dialysis. Doing her first dialysis this morning remains hemod ynamically unstable and hypotensive remains in atrial fibrillation with poorly controlled ventricular rate she underwent surgery yesterday its resection of some or bowel and is in the process of going for surgery again today her prognosis is poor white cell count is increasing remains tachycardic and hypotensive Her labs show a potassium of 5.2 sodium of 133 be an of 50 creatinine of 4 hemoglobin is 11.4 platelet count is 328 On exam: Patient is intubated on ventilator and sedated heart rate is around 150 bpm irregular blood pressure is 98/60 chest exam reveals diminished air entry bilaterally heart exam reveals first and second heart sounds are regular rhythm abdomen is status post surgery examination extremities reveals bilateral pitting edema Assessment and plan: Persistent atrial fibrillation with poorly controlled ventricular rate Strangulated hernia status post surgery I will continue the IV Lopressor prognosis is guarded Objective - Vital Signs Vital signs: Vital Signs Temp 98.7 F 12/12/21 08:00 Pulse 137 H 12/12/21 10:00 Resp 14 12/12/21 10:00 BP 145/64 12/12/21 10:00 Pulse Ox 95 12/12/21 10:00 Intake & Output 12/11/21 12/12/21 12/12/21 18:59 06:59 18:59 Intake Total 2420.050 1840.786 650.979 Output Total 690 1830 30 Balance 1730.050 10.786 620.979 Weight 148.2 kg Intake: IV 1400 1250 400 Lactated Ringers 1,000 ml 900 1200 300 @ 100 mls/hr IV .Q10H [facility] Rx#:[id number] Piperacillin-Tazobactam 3 100 50 100 .375 gm In Sodium Chloride 0.9% 100 ml @ 25 mls/hr IVPB Q12H [facility] Rx# :[id number] Intake, IV Titration 1020.050 590.786 250.979 Amount Lactated Ringers 300 ml @ 200 0 mls/hr IV .[facility] Rx#:[id number] Norepinephrine 8 mg In 628.523 490.786 250.979 Sodium Chloride 0.9% 250 ml @ 0.05 MCG/KG/MIN 12. 507 mls/hr IV .[id number] [facility] Rx#:[id number] propofoL 1,000 mg In 191.527 100 Empty Bag 1 bag @ Titrate IV .Q0M [facility] Rx#: [id number] Output: Gastric Drainage 150 Drainage 650 1665 Abdomen 650 625 Left Lower Abdomen 1040 Urine 15 15 30 Estimated Blood Loss 25 Other: Voiding Method Indwelling Catheter Indwelling Catheter Indwelling Catheter ABP, PAP, CO, CI - Last Documented Arterial Blood Pressure 106/55 - Labs CBC & Chem 7: 12/12/21 04:40 12/12/21 04:40 Labs: Abnormal Lab Results - Last 24 Hours (Table) 12/11/21 12/11/21 12/11/21 Range/Units 04:13 11:35 15:33 WBC (3.8-10.6) k/uL RBC (3.80-5.40) m/uL MCHC (31.0-37.0) g/dL RDW (11.5-15.5) % Neutrophils # (1.3-7.7) k/uL Monocytes # (0-1.0) k/uL ABG pO2 (83-108) mmHg ABG HCO3 (21-25) mmol/L Sodium (137-145) mmol/L Potassium (3.5-5.1) mmol/L Carbon Dioxide (22-30) mmol/L BUN (7-17) mg/dL Creatinine (0.52-1.04) mg/dL Glucose (74-99) mg/dL POC Glucose (mg/dL) 162 H 143 H (75-99) mg/dL Calcium (8.4-10.2) mg/dL Alkaline Phosphatase (38-126) U/L Total Protein (6.3-8.2) g/dL Albumin (3.5-5.0) g/dL Hep Bs Antibody Reactive A (Nonreactive) 12/11/21 12/11/21 12/12/21 Range/Units 17:33 23:41 04:40 WBC 21.9 H (3.8-10.6) k/uL RBC 3.79 L (3.80-5.40) m/uL MCHC 30.8 L (31.0-37.0) g/dL RDW 16.5 H (11.5-15.5) % Neutrophils # 18.9 H (1.3-7.7) k/uL Monocytes # 1.1 H (0-1.0) k/uL ABG pO2 (83-108) mmHg ABG HCO3 (21-25) mmol/L Sodium (137-145) mmol/L Potassium (3.5-5.1) mmol/L Carbon Dioxide (22-30) mmol/L BUN (7-17) mg/dL Creatinine (0.52-1.04) mg/dL Glucose (74-99) mg/dL POC Glucose (mg/dL) 130 H 141 H (75-99) mg/dL Calcium (8.4-10.2) mg/dL Alkaline Phosphatase (38-126) U/L Total Protein (6.3-8.2) g/dL Albumin (3.5-5.0) g/dL Hep Bs Antibody (Nonreactive) 12/12/21 12/12/21 12/12/21 Range/Units 04:40 05:34 11:21 WBC (3.8-10.6) k/uL RBC (3.80-5.40) m/uL MCHC (31.0-37.0) g/dL RDW (11.5-15.5) % Neutrophils # (1.3-7.7) k/uL Monocytes # (0-1.0) k/uL ABG pO2 79 L (83-108) mmHg ABG HCO3 19 L (21-25) mmol/L Sodium 133 L (137-145) mmol/L Potassium 5.2 H (3.5-5.1) mmol/L Carbon Dioxide 17 L (22-30) mmol/L BUN 50 H (7-17) mg/dL Creatinine 4.13 H (0.52-1.04) mg/dL Glucose 148 H (74-99) mg/dL POC Glucose (mg/dL) 154 H (75-99) mg/dL Calcium 7.5 L (8.4-10.2) mg/dL Alkaline Phosphatase 30 L (38-126) U/L Total Protein 4.6 L (6.3-8.2) g/dL Albumin 2.1 L (3.5-5.0) g/dL Hep Bs Antibody (Nonreactive) Microbiology - Last 24 Hours (Table) 12/09/21 21:30 Gram Stain - Final Sputum Sputum Culture - Final
[2021-12-12] MEDS: HYDROCORTISONE SUCCINATE 100 MG/2 ML VIAL IV SCH ×2 (12:22→19:09)
--- NOTE | 2021-12-12 12:42 | P.PN ---
Subjective Progress Note Date: 12/12/21 History of present illness per H&P: Patient is a 71-year-old female with a history of A. fib anticoagulated on Coumadin, history of prior pulmonary embolism and DVT with known MTHFR, systolic congestive heart failure with ejection fraction 45-50% (recovered from 30-35%) and chronic kidney disease stage IV following with nephrology on an outpatient basis who presented for abdominal wall hernia that is no longer reducible. On arrival she was found to be tachycardic. Laboratory analysis showed a white blood cell count of 13.8, creatinine was near her baseline at 2.13 consistent with her chronic kidney disease stage IV, glucose was mildly elevated at 153 on the laboratory analysis is otherwise unremarkable. She underwent a CT abdomen and pelvis which demonstrated a large lower anterior abdominal wall ventral hernia containing multiple bowel loops without signs of obstruction. In the emergency department she was started on Zosyn, IV fluids, and pain medications. She was placed in observation for further surgical evaluation. Patient seen adnexamined at bedside. Has abdominal wall hernia that was reproducible until yesterday. Now having pain at the hernia site that wraps to her back. Had a bowel movement where she had to bare down and then noticed that it was no longer reducible. + nuasea with vomiting X 1. No dificulty with urination. + Shortness of breath after this incident. She uses a walker at baseline. She is independent with bathing and dressing as well as meal prep. She does have assistance with cleaning. She is able to walk for steroids at this time with physical therapy, but has been unable to leave her house. She is unable to walk a full flight of stairs. She denies any recent episodes of chest pain or syncope. Status post exploratory laparotomy, excision of umbilicus and hernia sac, small bowel resection, reduction of ventral hernia and wound VAC placement on December 09 Interval history: Patient was seen and examined at the bedside. Still sedated and intubated. Patient was taken to or yesterday she had 220 cm necrotic small bowel removed by general surgery with wound VAC placement. Since yesterday she has required dialysis catheter placement and has started hemodialysis this morning. Chest x- ray shows persistent bilateral infiltrates, laboratory studies show a significant leukocytosis but her pressor requirement is starting to come down, mean arterial pressures are adequate. Objective - Vital Signs Vital signs: Vital Signs Temp 98.7 F 12/12/21 08:00 Pulse 131 H 12/12/21 12:00 Resp 22 12/12/21 12:00 BP 136/106 12/12/21 12:00 Pulse Ox 95 12/12/21 12:00 Intake & Output 12/11/21 12/12/21 12/12/21 18:59 06:59 18:59 Intake Total 2420.050 3930.545 5339.802 Output Total 690 1830 30 Balance 1730.050 10.786 1047.802 Weight 148.2 kg Intake: IV 1400 1250 600 Lactated Ringers 1,000 ml 900 1200 500 @ 100 mls/hr IV .Q10H [facility] Rx#:[id number] Piperacillin-Tazobactam 3 100 50 100 .375 gm In Sodium Chloride 0.9% 100 ml @ 25 mls/hr IVPB Q12H [facility] Rx# :[id number] Intake, IV Titration 1020.050 590.786 477.802 Amount Lactated Ringers 300 ml @ 200 0 mls/hr IV .[facility] Rx#:[id number] Norepinephrine 8 mg In 628.523 490.786 377.802 Sodium Chloride 0.9% 250 ml @ 0.05 MCG/KG/MIN 12. 507 mls/hr IV .[id number] [facility] Rx#:[id number] propofoL 1,000 mg In 191.527 100 100 Empty Bag 1 bag @ Titrate IV .Q0M [facility] Rx#: [id number] Output: Gastric Drainage 150 Drainage 650 1665 Abdomen 650 625 Left Lower Abdomen 1040 Urine 15 15 30 Estimated Blood Loss 25 Other: Voiding Method Indwelling Catheter Indwelling Catheter Indwelling Catheter ABP, PAP, CO, CI - Last Documented Arterial Blood Pressure 104/61 - Exam General: Patient intubated Derm: warm, dry Head: atraumatic, normocephalic, symmetric Eyes: EOMI, no lid lag, anicteric sclera Mouth: no lip lesion, mucus membranes moist Cardiovascular: Irregular regular rhythm. A. fib Lungs: CTA bilateral, no rhonchi, no rales , no accessory muscle use Abdominal: Soft without bowel sounds. [address] Abdomen is open Ext: no gross muscle atrophy, no edema, no contractures Neuro: Cannot be assessed patient is sedated - Labs CBC & Chem 7: 12/12/21 04:40 12/12/21 04:40 Labs: Abnormal Lab Results - Last 24 Hours (Table) 12/11/21 12/11/21 12/11/21 Range/Units 04:13 15:33 17:33 WBC (3.8-10.6) k/uL RBC (3.80-5.40) m/uL MCHC (31.0-37.0) g/dL RDW (11.5-15.5) % Neutrophils # (1.3-7.7) k/uL Monocytes # (0-1.0) k/uL ABG pO2 (83-108) mmHg ABG HCO3 (21-25) mmol/L Sodium (137-145) mmol/L Potassium (3.5-5.1) mmol/L Carbon Dioxide (22-30) mmol/L BUN (7-17) mg/dL Creatinine (0.52-1.04) mg/dL Glucose (74-99) mg/dL POC Glucose (mg/dL) 143 H 130 H (75-99) mg/dL Calcium (8.4-10.2) mg/dL Alkaline Phosphatase (38-126) U/L Total Protein (6.3-8.2) g/dL Albumin (3.5-5.0) g/dL Hep Bs Antibody Reactive A (Nonreactive) 12/11/21 12/12/21 12/12/21 Range/Units 23:41 04:40 04:40 WBC 21.9 H (3.8-10.6) k/uL RBC 3.79 L (3.80-5.40) m/uL MCHC 30.8 L (31.0-37.0) g/dL RDW 16.5 H (11.5-15.5) % Neutrophils # 18.9 H (1.3-7.7) k/uL Monocytes # 1.1 H (0-1.0) k/uL ABG pO2 (83-108) mmHg ABG HCO3 (21-25) mmol/L Sodium 133 L (137-145) mmol/L Potassium 5.2 H (3.5-5.1) mmol/L Carbon Dioxide 17 L (22-30) mmol/L BUN 50 H (7-17) mg/dL Creatinine 4.13 H (0.52-1.04) mg/dL Glucose 148 H (74-99) mg/dL POC Glucose (mg/dL) 141 H (75-99) mg/dL Calcium 7.5 L (8.4-10.2) mg/dL Alkaline Phosphatase 30 L (38-126) U/L Total Protein 4.6 L (6.3-8.2) g/dL Albumin 2.1 L (3.5-5.0) g/dL Hep Bs Antibody (Nonreactive) 12/12/21 12/12/21 Range/Units 05:34 11:21 WBC (3.8-10.6) k/uL RBC (3.80-5.40) m/uL MCHC (31.0-37.0) g/dL RDW (11.5-15.5) % Neutrophils # (1.3-7.7) k/uL Monocytes # (0-1.0) k/uL ABG pO2 79 L (83-108) mmHg ABG HCO3 19 L (21-25) mmol/L Sodium (137-145) mmol/L Potassium (3.5-5.1) mmol/L Carbon Dioxide (22-30) mmol/L BUN (7-17) mg/dL Creatinine (0.52-1.04) mg/dL Glucose (74-99) mg/dL POC Glucose (mg/dL) 154 H (75-99) mg/dL Calcium (8.4-10.2) mg/dL Alkaline Phosphatase (38-126) U/L Total Protein (6.3-8.2) g/dL Albumin (3.5-5.0) g/dL Hep Bs Antibody (Nonreactive) Microbiology - Last 24 Hours (Table) 12/09/21 21:30 Gram Stain - Final Sputum Sputum Culture - Final Assessment and Plan Assessment: Assessment and plan: Septic Shock from Small Bowel Necrosis and Perforation Strangulated abdominal wall hernia to the left of the umbilicus containing loops of bowel -December 09 status post exploratory laparotomy, excision of umbilicus hernia sac, small bowel resection, reduction of ventral hernia, and wound VAC placement. -December 11 Second Look laparotomy with abdominal exploration, resection of 220 cm necrotic small bowel segment, right hemicolectomy, temporary abdominal closure with Apthera VAC. -The plan is to take the patient back to the operating room on 12/12 -Infectious disease consulted December 11 -levophed -propofol -dilaudid PRN -Surgery consultation -Hold Coumadin until clered by surgery -Perico Acute ventilatory dependent respiratory failure secondary to above -Vent management per critical care Atrial fibrillation with RVR -anticoagulated with Coumadin at baseline -IV Lopressor for rate control per cardiology Cardiomyopathy with ejection fraction 45-50% -Not chronically on CHARLES inhibitor, resume IV metoprolol -Continue with tele -cardiology following Acute kidney injury possibly secondary to ATN -Status post hemodialysis December 11 -Nephrology managing Chronic kidney disease stage IV Hypercoaguability with MTHFR History of DVT and pulmonary embolism -on heparin TID for DVT PPx Severe obesity with BMI 52.1 outpt weight loss referral History of osteoarthritis. History of uterine cancer. History of gout. DVT prophylaxis: heparin TID Condition is critical.
[2021-12-12] MEDS: METOPROLOL TARTRATE 5 MG/5 ML VIAL IVP PRN (14:52)
[2021-12-12] MEDS ORDERED: MIDAZOLAM 2 MG/2 ML VIAL ONE (17:04)
[2021-12-12] MEDS ORDERED: PROPOFOL 10 MG/ML 20 ML VIAL IV ONE (17:04)
[2021-12-12] MEDS ORDERED: fentaNYL (PF) 50 MCG/ML 2 ML AMP ONE (17:04)
[2021-12-12] MEDS ORDERED: CISATRACURIUM 2 MG/ML 5 ML VIAL IV ONE (17:04)
[2021-12-12] MEDS ORDERED: IV FLUID CONTINUATION 1,000 ML IV ONE (17:13)
[2021-12-12] MEDS ORDERED: LIDOCAINE 0.5%-EPI 1:200,000 50 ML VIAL SQ ONE ×2 (17:41)
[2021-12-12] MEDS ORDERED: BUPIVACAINE (PF) 0.25% 30 ML VIAL SQ ONE ×2 (17:41)
[2021-12-12] MEDS ORDERED: LACTATED RINGERS 1,000 ML IV ONE (18:28)
--- NOTE | 2021-12-12 19:04 | P.OP ---
Date of Procedure: 12/12/21 Preoperative Diagnosis: Strangulated ventral hernia with bowel ischemia and perforation, acute on chronic renal failure, morbid obesity with BMI in excess of 50, oral anticoagulation on Coumadin for hypercoagulable state. Postoperative Diagnosis: Same as above Procedure(s) Performed: Third look exploratory laparotomy with [id number] antimesenteric ileocolonic anastomosis with closure of mesenteric defect, fascial block, primary fascial closure, application of negative pressure wound VAC dressing over 20 x 20 x 5 cm midline surgical soft tissue wound. Anesthesia: NOELA Surgeon: Chapincito Amezcua Estimated Blood Loss (ml): 15 Pathology: none sent Condition: stable Disposition: ICU Indications for Procedure: Patient is a 71-year-old lady who presented to [facility] emergency department with incarcerated hernia and necrosis of the overlying umbilicus. She required urgent exploration revealing a strangulated small bowel with necrosis and perforation. She required an initial 30 cm segmental resection, an aggregate 300 cm segment of small bowel showed a questionable perfusion. As such Apthera temporary abdominal closure device was placed and plans for a second look made within normal 48 hours. She was subsequently taken back a little over 24 hours after initial surgery and an additional 220 cm segment of small bowel showed patchy necrosis along the antimesenteric border. This segment was resected, patient had moderate pressor requirement and as such it was felt that anastomosis would be unsafe and the patient would likely have a very terrible time with enterostomy I given her pre-existing stage IV chronic kidney disease and worsening renal function the setting of acute illness. As such temporary abdominal closure device was replaced, patient transition back to the ICU. She started hemodialysis in the interim and plans made to go back to [facility] operating room and an additional 24 hours. Following dialysis and source control with resection of all necrotic bowel patient showed some modest improvement. On date of today's surgery for pressor requirement is minimal, mean arterial pressures in excess of 70 and patient is saturating in the high 90s on 30% FiO2. Patient's family gave informed consent for the aforementioned procedures after discussion of risks, benefit alternatives to treatment. Operative Findings: Well-perfused transverse colon and distal jejunum, no signs of bowel perforation, residual ischemia, or leak. Description of Procedure: Patient was taken to the operative suite and placed in supine position. Following induction of general endotracheal anesthesia she was prepped and draped in sterile fashion. After that was removed. Abdomen was explored. The remaining small bowel well-perfused appearance. Right hemicolectomy had been performed at her last surgery to provide a well-perfused area for anticipated anastomosis today. Staple line at the proximal transverse colon was intact and colon here had a well-perfused character. A [id number] antimesenteric jejunal colonic anastomosis was performed with a blue staple load, common enterotomy closed with the same. 2-0 silk suture placed at the confluence of the anastomosis to alleviate tension. Staple lines were oversewn with interrupted 2-0 silk and mesenteric defect closed with running 2-0 silk. Our previously placed Arjun drain was repositioned in the pelvis. To assist with dependent fluid collection and risk of postoperative intra-abdominal abscess. Midline fascia was closed with alternating #2 Ethibond and #1 Vicryl suture. Posterior fascial block was performed with 1% lidocaine and quarter percent Marcaine with epinephrine solution to hopefully help with efforts at weaning from the vent this evening. Her skin and soft tissue are high risk for infection as such soft tissue was left open and negative pressure wound VAC dressing placed over the approximately 20 x 20 x 5 cm midline surgical wound. VAC was connected to suction without leak. Patient was transferred back to the ICU, intubated and in relatively stable condition. Operative findings were discussed with the family they were advised that some if there is any issue with the anastomosis at that point we'll have no choice but to reexplore and move forward with an ostomy. I'm hopeful that now that she is better optimized with dialysis, source control and the passage of a bit of time she has her best possible chance of healing.
--- NOTE | 2021-12-12 23:19 | P.CONS ---
History of Present Illness - Reason for Consult Consult date: 12/12/21 Sepsis Requesting physician: Leonard Navarro - Chief Complaint Abdominal pain x 1 day - History of Present Illness Patient is 71-year-old female presenting to the ER 4 days ago for evaluation of abdominal pain and difficulty in breathing patient on presentation to the hospital did have a CT of abdominal pelvis completed with very large lower abdominal wall ventral hernia containing multiple loops of bowel no signs of obstruction patient was evaluated by general surgery she was taken to the OR on 12/09/2021 and this patient noticed to have strangulated ventral hernia with skin necrosis and segmental small bowel necrosis and perforation, patient is status post excision of the umbilicus and hernia sac 30 cm of small bowel resection reduction of the ventral hernia and application of temporary abdominal closure device with a plan for back to surgery this afternoon patient did have a low-grade fever during this hospital stay and did have a white count of 13.8 which is up to 21.9 today also have elevated BUN and creatinine urine was negative, infectious disease was consulted today with concern for abdominal sepsis and management of antibiotic therapy most information has been obtained from review the chart and talking to nursing staff as well as family the bedside as the patient intubated on the vent unable provide any history Review of Systems Positive points has been mentioned in HPI complete review could not be obtained because of his underlying mental status Past Medical History Past Medical History: Atrial Fibrillation, Blood Disorder, Cancer, Heart Failure, Deep Vein Thrombosis (DVT), Hypertension, Osteoarthritis (OA), Pulmonary Embolus (PE), Renal Disease Additional Past Medical History / Comment(s): mthfr, uterine cancer, gout, anemia. uses 4 prong cane OR WALKER when up. BACK PAIN, chronic kidney disease History of Any Multi-Drug Resistant Organisms: None Reported Past Surgical History: Hysterectomy, Orthopedic Surgery Additional Past Surgical History / Comment(s): plate and screws in right ankle, picc line-since removed, cortisone injections to knees Past Anesthesia/Blood Transfusion Reactions: No Reported Reaction Additional Past Anesthesia/Blood Transfusion Reaction / Comm: past blood transfusions-no reactions Past Psychological History: Depression Additional Psychological History / Comment(s): PAST HISTORY DEPRESSION (2018) no longer takes antidepressants Smoking Status: Never smoker Past Alcohol Use History: None Reported Past Drug Use History: None Reported - Past Family History Mother Family Medical History: Cancer Additional Family Medical History / Comment(s): BREAST Father Family Medical History: Coronary Artery Disease (CAD) Medications and Allergies Home Medications Medication Instructions Recorded Confirmed Type Allopurinol 100 mg PO BID 07/21/14 12/09/21 History Warfarin [Coumadin] 2.5 mg PO [id number]@1800 07/21/14 12/09/21 History traMADol HCL [Tramadol HCl] 100 mg PO BID 07/21/14 12/09/21 History Gabapentin [Neurontin] 100 mg PO BID 07/10/18 12/09/21 History Cholecalciferol [Vitamin D3 (25 50 mcg PO DAILY 10/10/21 12/09/21 History Mcg = 1000 Iu)] Folic Acid 0.8 mg PO DAILY 10/10/21 12/09/21 History Furosemide [Lasix] 40 mg PO DAILY 12/09/21 12/09/21 History Metoprolol Tartrate 12.5 mg PO BID 12/09/21 12/09/21 History Allergies Allergy/AdvReac Type Severity Reaction Status Date / Time aspirin Allergy Rash/Hives Verified 12/09/21 14:29 codeine Allergy Itching Verified 12/09/21 14:29 Physical Exam Vitals: Vital Signs Temp Pulse Resp BP Pulse Ox 12/12/21 15:30 121 H 24 139/97 98 12/12/21 15:15 103 H 24 162/93 97 12/12/21 15:00 110 H 24 156/102 98 12/12/21 14:45 118 H 24 156/102 96 12/12/21 14:30 129 H 12 155/98 97 12/12/21 14:15 118 H 9 L 149/78 97 12/12/21 14:00 125 H 17 129/92 96 12/12/21 13:45 138 H 26 H 129/92 97 12/12/21 13:30 129 H 18 108/70 97 12/12/21 13:15 133 H 21 126/69 96 12/12/21 13:00 126 H 23 119/84 96 12/12/21 12:45 122 H 20 119/84 97 12/12/21 12:30 133 H 22 121/101 97 12/12/21 12:15 125 H 10 L 135/89 95 12/12/21 12:00 131 H 22 136/106 95 12/12/21 11:45 129 H 21 136/106 95 12/12/21 11:30 130 H 18 135/107 95 12/12/21 11:15 138 H 22 125/88 96 12/12/21 11:00 129 H 21 139/85 96 12/12/21 10:45 120 H 26 H 139/85 96 12/12/21 10:30 113 H 24 163/66 96 12/12/21 10:15 123 H 17 155/91 96 12/12/21 10:00 137 H 14 145/64 95 12/12/21 09:45 125 H 22 145/64 96 12/12/21 09:30 113 H 17 146/81 96 12/12/21 09:15 123 H 19 145/84 96 12/12/21 09:00 126 H 9 L 145/76 95 12/12/21 08:45 129 H 24 145/76 96 12/12/21 08:30 140 H 14 146/60 95 12/12/21 08:15 117 H 19 149/56 95 12/12/21 08:00 98.7 F 133 H 25 H 148/72 95 12/12/21 07:45 121 H 25 H 148/72 95 12/12/21 07:30 131 H 25 H 145/78 95 12/12/21 07:15 146 H 14 93 L 12/12/21 07:00 118 H 25 H 125/86 95 12/12/21 06:45 129 H 24 125/86 95 12/12/21 06:30 110 H 24 130/56 95 12/12/21 06:15 137 H 24 120/64 95 12/12/21 06:00 114 H 24 123/80 95 12/12/21 05:45 131 H 24 95 12/12/21 05:30 128 H 16 119/74 95 12/12/21 05:15 122 H 9 L 132/75 95 12/12/21 05:00 117 H 20 132/85 94 L 12/12/21 04:45 130 H 22 94 L 12/12/21 04:30 129 H 11 L 132/54 95 12/12/21 04:15 135 H 16 138/74 95 12/12/21 04:00 98.5 F 112 H 24 125/77 95 12/12/21 03:45 117 H 24 95 12/12/21 03:30 115 H 25 H 130/84 95 03/09/22 03:15 131 H 24 130/55 95 12/12/21 03:00 114 H 23 135/97 95 12/12/21 02:45 122 H 25 H 95 12/12/21 02:30 115 H 22 121/40 95 12/12/21 02:15 115 H 23 107/46 95 12/12/21 02:00 120 H 23 129/89 95 12/12/21 01:45 126 H 23 95 12/12/21 01:30 128 H 23 119/71 95 12/12/21 01:15 117 H 20 120/70 95 12/12/21 01:00 111 H 22 120/58 95 12/12/21 00:45 113 H 26 H 120/58 95 12/12/21 00:30 104 H 21 115/72 95 12/12/21 00:15 112 H 22 113/84 95 12/12/21 00:00 98.9 F 121 H 19 95 12/11/21 23:45 131 H 29 H 123/98 94 L 12/11/21 23:34 117 H 21 122/76 95 12/11/21 23:30 121 H 24 122/76 95 12/11/21 23:15 121 H 25 H 130/73 96 12/11/21 23:00 126 H 23 120/64 95 12/11/21 22:45 123 H 23 94 L 12/11/21 22:30 131 H 22 112/72 94 L 12/11/21 22:15 120 H 21 129/61 94 L 12/11/21 22:00 122 H 24 130/49 95 12/11/21 21:45 125 H 22 95 12/11/21 21:30 114 H 23 138/84 95 12/11/21 21:15 125 H 23 126/70 95 12/11/21 21:00 125 H 29 H 127/80 95 12/11/21 20:45 122 H 28 H 95 12/11/21 20:30 122 H 23 127/62 95 12/11/21 20:15 126 H 24 117/69 95 12/11/21 20:00 98.2 F 125 H 24 110/66 95 12/11/21 19:45 110 H 24 94 L 12/11/21 19:30 106 H 24 104/67 95 12/11/21 19:15 123 H 24 96/59 95 12/11/21 19:00 146 H 20 121/47 94 L 12/11/21 18:45 135 H 25 H 94 L 12/11/21 18:30 120 H 25 H 115/42 94 L 12/11/21 18:15 115 H 25 H 123/76 94 L 12/11/21 18:00 120 H 25 H 127/55 94 L 12/11/21 17:45 118 H 24 95 12/11/21 17:30 124 H 25 H 129/61 94 L 12/11/21 17:15 121 H 26 H 123/90 95 12/11/21 17:00 110 H 24 122/79 94 L 12/11/21 16:45 121 H 20 122/79 94 L 12/11/21 16:30 117 H 13 117/69 94 L Intake and Output 12/12/21 12/12/21 12/12/21 06:59 14:59 22:59 Intake Total 9037.196 5018.237 200 Output Total 1115 30 0 Balance 955.199 7287.237 200 Intake: IV 900 800 200 Lactated Ringers 1,000 ml 900 700 200 @ 100 mls/hr IV .Q10H [facility] Rx#:[id number] Piperacillin-Tazobactam 3 100 .375 gm In Sodium Chloride 0.9% 100 ml @ 25 mls/hr IVPB Q12H [facility] Rx# :[id number] Intake, IV Titration 420.186 623.237 Amount Norepinephrine 8 mg In 320.186 523.237 Sodium Chloride 0.9% 250 ml @ 0.05 MCG/KG/MIN 12. 507 mls/hr IV .[id number] [facility] Rx#:[id number] propofoL 1,000 mg In 100 100 Empty Bag 1 bag @ Titrate IV .Q0M [facility] Rx#: [id number] Output: Drainage 1100 Abdomen 100 Left Lower Abdomen 1000 Urine 15 30 0 Other: Voiding Method Indwelling Catheter Indwelling Catheter Indwelling Catheter Weight 148.2 kg ABP, PAP, CO, CI - Last 8 Hours Arterial Blood Pressure 104/54 Arterial Blood Pressure 110/61 Arterial Blood Pressure 121/58 Arterial Blood Pressure 140/65 Arterial Blood Pressure 130/59 Arterial Blood Pressure 135/60 Arterial Blood Pressure 135/69 Arterial Blood Pressure 123/65 Arterial Blood Pressure 123/64 Arterial Blood Pressure 121/61 Arterial Blood Pressure 113/58 Arterial Blood Pressure 104/61 Arterial Blood Pressure 96/59 Arterial Blood Pressure 107/65 Arterial Blood Pressure 104/61 Arterial Blood Pressure 101/59 Arterial Blood Pressure 105/61 Arterial Blood Pressure 74/45 Arterial Blood Pressure 107/60 Arterial Blood Pressure 112/58 Arterial Blood Pressure 126/62 Arterial Blood Pressure 120/60 Arterial Blood Pressure 106/55 Arterial Blood Pressure 113/56 Arterial Blood Pressure 78/48 Arterial Blood Pressure 102/57 Arterial Blood Pressure 116/60 Arterial Blood Pressure 118/62 Arterial Blood Pressure 108/60 GENERAL DESCRIPTION: Elderly female intubated On the vent. No tachypnea or accessory muscle of respiration use. HEENT: Shows Pallor , no scleral icterus. Oral mucous membrane is dry. No pharyngeal erythema or thrush NECK: Trachea central, no thyromegaly. LUNGS: Unlabored breathing. Clear to auscultation anteriorly. No wheeze or crackle. HEART: S1, S2, regular rate and rhythm. No loud murmur ABDOMEN: Soft, no tenderness EXTREMITIES: No edema of feet. SKIN: No rash, no masses palpable. NEUROLOGICAL: The patient is sedated on the vent Results CBC & Chem 7: 12/12/21 04:40 12/12/21 04:40 Labs: Abnormal Lab Results - Last 24 Hours (Table) 12/11/21 12/11/21 12/11/21 Range/Units 04:13 17:33 23:41 WBC (3.8-10.6) k/uL RBC (3.80-5.40) m/uL MCHC (31.0-37.0) g/dL RDW (11.5-15.5) % Neutrophils # (1.3-7.7) k/uL Monocytes # (0-1.0) k/uL ABG pO2 (83-108) mmHg ABG HCO3 (21-25) mmol/L Sodium (137-145) mmol/L Potassium (3.5-5.1) mmol/L Carbon Dioxide (22-30) mmol/L BUN (7-17) mg/dL Creatinine (0.52-1.04) mg/dL Glucose (74-99) mg/dL POC Glucose (mg/dL) 130 H 141 H (75-99) mg/dL Calcium (8.4-10.2) mg/dL Alkaline Phosphatase (38-126) U/L Total Protein (6.3-8.2) g/dL Albumin (3.5-5.0) g/dL Hep Bs Antibody Reactive A (Nonreactive) 12/12/21 12/12/21 12/12/21 Range/Units 04:40 04:40 05:34 WBC 21.9 H (3.8-10.6) k/uL RBC 3.79 L (3.80-5.40) m/uL MCHC 30.8 L (31.0-37.0) g/dL RDW 16.5 H (11.5-15.5) % Neutrophils # 18.9 H (1.3-7.7) k/uL Monocytes # 1.1 H (0-1.0) k/uL ABG pO2 79 L (83-108) mmHg ABG HCO3 19 L (21-25) mmol/L Sodium 133 L (137-145) mmol/L Potassium 5.2 H (3.5-5.1) mmol/L Carbon Dioxide 17 L (22-30) mmol/L BUN 50 H (7-17) mg/dL Creatinine 4.13 H (0.52-1.04) mg/dL Glucose 148 H (74-99) mg/dL POC Glucose (mg/dL) (75-99) mg/dL Calcium 7.5 L (8.4-10.2) mg/dL Alkaline Phosphatase 30 L (38-126) U/L Total Protein 4.6 L (6.3-8.2) g/dL Albumin 2.1 L (3.5-5.0) g/dL Hep Bs Antibody (Nonreactive) 12/12/21 Range/Units 11:21 WBC (3.8-10.6) k/uL RBC (3.80-5.40) m/uL MCHC (31.0-37.0) g/dL RDW (11.5-15.5) % Neutrophils # (1.3-7.7) k/uL Monocytes # (0-1.0) k/uL ABG pO2 (83-108) mmHg ABG HCO3 (21-25) mmol/L Sodium (137-145) mmol/L Potassium (3.5-5.1) mmol/L Carbon Dioxide (22-30) mmol/L BUN (7-17) mg/dL Creatinine (0.52-1.04) mg/dL Glucose (74-99) mg/dL POC Glucose (mg/dL) 154 H (75-99) mg/dL Calcium (8.4-10.2) mg/dL Alkaline Phosphatase (38-126) U/L Total Protein (6.3-8.2) g/dL Albumin (3.5-5.0) g/dL Hep Bs Antibody (Nonreactive) Microbiology - Last 24 Hours (Table) 12/09/21 21:30 Gram Stain - Final Sputum Sputum Culture - Final Assessment and Plan (1) Sepsis Current Visit: Yes Status: Acute Code(s): A41.9 - SEPSIS, UNSPECIFIED ORGANISM SNOMED Code(s): 97385786 Plan: 1patient presented to hospital with abdominal pain and did have evidence of elevated white count tachycardia meeting criteria for sepsis sources incarcerated abdominal hernia with perforated small bowel status post resection and need to cover for the enteric gram-negative with a likely pathogen. 2patient to continue with Zosyn 3.375 g every 8 hour. 3blood cultures if the patient spike any fever and may benefit from OR cultures We will follow on clinical condition and cultures to further adjust medication if needed Thank you for this consultation will follow this patient along with you Time with Patient: Greater than 30
[2021-12-13 01:20] LABS: Glucose,Whole Blood 112 mg/dL (75-99)
[2021-12-13] MEDS: LACTATED RINGERS 1,000 ML IV SCH ×4 (01:41→20:06)
[2021-12-13] MEDS: HEPARIN SODIUM,PORCINE/PF 5,000 UNIT/0.5 ML SYRINGE SQ SCH ×3 (01:41→16:16)
[2021-12-13] MEDS: HYDROCORTISONE SUCCINATE 100 MG/2 ML VIAL IV SCH ×4 (01:41→18:03)
[2021-12-13] MEDS: NOREPINEPHRINE 8 MG in SODIUM CHLORIDE 0.9% 250 ML IV SCH (01:46)
[2021-12-13 05:11] LABS: Anisocytosis Slight; Basophils % (A) 0 %; Eosinophils % (A) 0 %; HCT 30.8 % (34.0-46.0); Hypochromasia Marked; Lymphocytes # (A) 0.9 k/uL (1.0-4.8); Lymphocytes % (A) 5 %; MCH 29.2 pg (25.0-35.0); MCHC 30.3 g/dL (31.0-37.0); MCV 96.4 fL (80.0-100.0); Macrocytosis Slight; Mean Platelet Volume 9.5; Monocytes # (A) 0.7 k/uL (0-1.0); Monocytes % (A) 4 %; Neutrophils # (A) 15.4 k/uL (1.3-7.7); Neutrophils % (A) 89 %; Platelet Count 244 k/uL (150-450); RBC 3.19 m/uL (3.80-5.40); RDW 16.6 % (11.5-15.5); WBC 17.3 k/uL (3.8-10.6)
[2021-12-13 05:21] LABS: Glucose,Whole Blood 132 mg/dL (75-99)
[2021-12-13] MEDS: PIPERACILLIN-TAZOBACTAM 3.375 GM in SODIUM CHLORIDE 0.9% 100 ML IVPB SCH ×2 (05:23→18:15)
[2021-12-13 05:27] LABS: HGB 9.3 gm/dL (11.4-16.0)
[2021-12-13 05:44] LABS: Calcium 7.7 mg/dL (8.4-10.2); Potassium 4.6 mmol/L (3.5-5.1)
[2021-12-13 06:04] LABS: ABG Base Excess -4.5 mmol/L; ABG HCO3 21 mmol/L (21-25); ABG Oxygen Saturation 91.6 % (94-97); ABG PCO2 37 mmHg (35-45); ABG PH 7.36 (7.35-7.45); ABG PO2 63 mmHg (83-108); ABG TCO2 22 mmol/L (19-24); Allen Test Performed? Yes
--- NOTE | 2021-12-13 08:01 | XR ---
EXAMINATION TYPE: XR chest 1V portable DATE OF EXAM: 12/13/2021 COMPARISON: Chest x-ray 12/12/2021 HISTORY: Intubated TECHNIQUE: Single frontal view of the chest is obtained. FINDINGS: Endotracheal tube, NG tube are overlying appropriate positions. Patient is rotated and the re are overlying artifacts. There is no evident pneumothorax. Cardiac mediastinal silhouette is likel y stable. There may be some improvement in aeration, volume status as compared to prior exam. Bones a re unchanged. Right subclavian central venous catheter is stable. Retrocardiac density is thought to persist. IMPRESSION: Suspect some improvement in aeration, volume status as compared to prior. Exam is rotate d. Follow-up suggested.
--- NOTE | 2021-12-13 08:35 | P.PN ---
Subjective Progress Note Date: 12/13/21 Principal diagnosis: Ventilator management. Pulmonary consult dated 12/10/2021. 71-year-old female seen in room 250. The patient is postop day #1, status post exploratory laparotomy, excision of umbilicus and hernia sac, small bowel resection, reduction of ventral hernia, and wound VAC placement. We are seeing the patient for the first time in the intensive care unit. She remains on the ventilator. She apparently is being taken back to the operating room either later today or tomorrow. She is on volume assist control, rate 24, tidal volume 350, FiO2 40%, and PEEP of 5. Blood gases show pO2 83, CO2 37, and pH is 7.44. The patient is on propofol at 20 mcg/kg/m, saline at 50 mL an hour, and norepinephrine at 0.07 mcg/kg/m, which is roughly 10 mcg/m. The patient was initially seen in the emergency department on December 09, with severe abdominal pain. White count 16, hemoglobin 11.5, hematocrit 37.6, platelet count 323,000. PT 20.6, INR 2.1. Sodium 134, potassium 4.7, chlorides 106, CO2 24, anion gap 4, BUN 38, creatinine 2.26. Albumin is 2.4. Urine was negative. Chest x-ray showed diffuse bilateral infiltrates with small effusions. Progress note dated 12/11/2021. 71-year-old female, again seen in room 250. She is postop day #2, status post exploratory laparotomy, excision of umbilicus and hernia sac, small bowel resection, reduction of ventral hernia, and wound VAC placement. The patient apparently is going back to the operating room later today. The patient remains on the ventilator. She is on volume assist control, rate 24, tidal volume 350, FiO2 30%, PEEP of 5. Arterial blood gases show pO2 108, pCO2 35, and pH is 7.38. The patient is on lactated Ringer's at 100 mL an hour, propofol at 20 mcg/kg/m, and norepinephrine, at 35 mcg/m. I've asked the nurse to get a stat cortisol level, and apparently she was given Lasix 80 mg by nephrology earlier this morning, and has had less than 10 mL of urine output. White count 18.5, hemoglobin 12.9, hematocrit 43.5, platelet count 393,000. Sodium 133, potassium I.4, chlorides 106, CO2 19, anion gap 8, BUN 42, and creatinine 3.27. Microbiologic studies are thus far negative. Chest x-ray shows diffuse bilateral airspace disease. Endotracheal tube and NG tube are noted. Progress note dated 12/12/2021. 71-year-old female, again seen in room 250. She's postop day #3, status post ex ploratory laparotomy, excision of umbilicus and hernia sac, small bowel resection, reduction of ventral hernia, and wound VAC placement. The patient went back to the operating room yesterday, and had 220 cm of small bowel removed. A hemodialysis catheter was placed. She will have hemodialysis today. Later today, the patient will go back to the operating room. She has a wound VAC in place, and a Gaetano-Ojeda drain as well. The patient remains on the ventilator. She is on the volume assist control mode, rate 24, tidal volume 350, FiO2 30%, and PEEP of 5. Arterial blood gases show pO2 of 78, pCO2 35, and a pH is 7.35. The patient is on norepinephrine, at 30 mcg/m, lactated Ringer's at 100 mL an hour, and propofol at 20 mcg/kg/m. White count 21.9, hemoglobin 11.4, hematocrit 37, and platelet count 328,000. Sodium 133, potassium 5.2, chlorides 106, CO2 17, anion gap 10, BUN 50, and creatinine 4.13. Microbiologic studies are thus far negative. The patient's chest x-ray shows diffuse bilateral infiltrates. Stat cortisol level was 38. Progress note dated 12/13/2021. 71-year-old female again seen in room 250. She's postop day #4, status post exploratory laparotomy, excision of umbilicus and hernia sac, small bowel resection, reduction of ventral hernia, and wound VAC placement. She's been back to the operating room now 2 additional times. Initially, she had additiona l small bowel resection. Yesterday, she had hemodialysis, and she'll have hemodialysis again today. She went back to the operating room on December 12, and had a exploratory laparotomy with [id number] anterior mesenteric ileocolonic anastomosis with closure of mesenteric defect, fascial block, primary fascial closure, and application of a negative pressure wound VAC dressing. The patient remains on the mechanical ventilator. She is on volume assist control, rate 24, tidal volume 350, FiO2 30%, and PEEP of 5. Blood gases show pO2 63, pCO2 37, and pH is 7.36. She is on propofol at 25 mcg/kg/m, lactated Ringer's at 100 mL an hour, and norepinephrine at 0.02 mcg/kg/m. Today we'll start TPN. We'll attempt a daily interruption of sedation after hemodialysis today. I've asked the nurse to assess surgeon whether or not there is any plans for follow-up surgery. White count 17.3, hemoglobin 9.3, hematocrit 31, platelet count 244,000. Sodium 135, potassium 4.6, chlorides 109, CO2 20, anion gap 6, BUN 43, with creatinine 3.62. Calcium is 7.7. Microbiologic studies are thus far negative. Chest x-ray is a bit improved. Objective - Vital Signs Vital signs: Vital Signs Temp 97.8 F 12/12/21 17:33 Pulse 124 H 12/13/21 07:00 Resp 12 12/13/21 07:00 BP 131/62 12/13/21 07:00 Pulse Ox 96 12/13/21 07:00 Intake & Output 12/12/21 12/13/21 12/13/21 18:59 06:59 18:59 Intake Total 2673.237 1863.311 106 Output Total 1045 265 Balance 7441.539 7843.311 106 Weight 151.4 kg Intake: IV 1650 1472 106 Lactated Ringers 1,000 ml 1100 1200 100 @ 100 mls/hr IV .Q10H [facility] Rx#:[id number] Piperacillin-Tazobactam 3 100 200 .375 gm In Sodium Chloride 0.9% 100 ml @ 25 mls/hr IVPB Q12H [facility] Rx# :[id number] Pressure Bag 72 6 Intake, IV Titration 723.237 391.311 Amount Norepinephrine 8 mg In 523.237 291.311 Sodium Chloride 0.9% 250 ml @ 0.05 MCG/KG/MIN 12. 507 mls/hr IV .[id number] [facility] Rx#:[id number] propofoL 1,000 mg In 200 100 Empty Bag 1 bag @ Titrate IV .Q0M [facility] Rx#: [id number] Hemodialysis 300 Output: Drainage 200 Left Lower Abdomen 200 Urine 30 65 Hemodialysis 1000 Estimated Blood Loss 15 Other: Voiding Method Indwelling Catheter Indwelling Catheter Indwelling Catheter ABP, PAP, CO, CI - Last Documented Arterial Blood Pressure 124/53 - Exam No acute distress, sedated, with an orally placed endotracheal tube, and NG tube.. HEENT examination is grossly unremarkable. Neck supple. Full range of motion. No adenopathy thyromegaly or neck vein distention. Cardiovascular examination reveals an irregular rhythm and rate. S1-S2 normal. No S3 or S4. No discernible murmur noted. Heart rate 124 bpm. The patient is in atrial fibrillation. Lungs reveal diffuse bilateral rhonchi. No wheezes or crackles. Breath sounds equal bilaterally. Saturations are 96%. Abdomen soft, without bowel sounds. A wound VAC is noted. Extremities are intact. No cyanosis or clubbing. Trace edema is noted. Skin is without rash or lesion. Neurologic examination cannot be assessed as the patient's currently sedated. - Labs CBC & Chem 7: 12/13/21 05:00 12/13/21 05:00 Labs: Abnormal Lab Results - Last 24 Hours (Table) 12/12/21 12/13/21 12/13/21 Range/Units 11:21 01:18 05:00 WBC 17.3 H (3.8-10.6) k/uL RBC 3.19 L (3.80-5.40) m/uL Hgb 9.3 L D (11.4-16.0) gm/dL Hct 30.8 L (34.0-46.0) % MCHC 30.3 L (31.0-37.0) g/dL RDW 16.6 H (11.5-15.5) % Neutrophils # 15.4 H (1.3-7.7) k/uL Lymphocytes # 0.9 L (1.0-4.8) k/uL ABG pO2 (83-108) mmHg ABG O2 Saturation (94-97) % Sodium (137-145) mmol/L Chloride (98-107) mmol/L Carbon Dioxide (22-30) mmol/L BUN (7-17) mg/dL Creatinine (0.52-1.04) mg/dL Glucose (74-99) mg/dL POC Glucose (mg/dL) 154 H 112 H (75-99) mg/dL Calcium (8.4-10.2) mg/dL 12/13/21 12/13/21 12/13/21 Range/Units 05:00 05:20 05:58 WBC (3.8-10.6) k/uL RBC (3.80-5.40) m/uL Hgb (11.4-16.0) gm/dL Hct (34.0-46.0) % MCHC (31.0-37.0) g/dL RDW (11.5-15.5) % Neutrophils # (1.3-7.7) k/uL Lymphocytes # (1.0-4.8) k/uL ABG pO2 63 L (83-108) mmHg ABG O2 Saturation 91.6 L (94-97) % Sodium 135 L (137-145) mmol/L Chloride 109 H (98-107) mmol/L Carbon Dioxide 20 L (22-30) mmol/L BUN 43 H (7-17) mg/dL Creatinine 3.62 H (0.52-1.04) mg/dL Glucose 125 H (74-99) mg/dL POC Glucose (mg/dL) 132 H (75-99) mg/dL Calcium 7.7 L (8.4-10.2) mg/dL Microbiology - Last 24 Hours (Table) 12/09/21 21:30 Gram Stain - Final Sputum Sputum Culture - Final Assessment and Plan Assessment: Postop day #4, status post exploratory laparotomy, excision of umbilicus hernia sac, small bowel resection, reduction of ventral hernia, and wound VAC placement. The patient was taken back to the operating room on December 11, and 220 cm of bowel was resected. The patient was taken back to the operating room on December 12, and had an ileocolonic anastomosis among other things. Routine postoperative ventilator management, status post intubation on December 09. Acute kidney injury, to begin hemodialysis on December 12. History of chronic atrial fibrillation. History of DVT. History of hypertension. History of pulmonary embolism. History of osteoarthritis. History of uterine cancer. History of gout. History of chronic kidney disease. Presence of the MTHFR mutation. Plan: Plan dated 12/10/2021. The patient will not be extubated as the patient is planning to go back to the operating room either later today or tomorrow. The patient's blood gases are reasonable. Vent settings are reasonable. The patient remains on propofol at 20 mcg/kg/m, and norepinephrine at 10 mcg/m. The patient's and chronic atrial fibrillation. We'll give the patient some additional volume. I told no she can use a small amount of metoprolol IV, i.e. 5 mg. Additional recommendations and suggestions are forthcoming. Prognosis is guarded. We will continue to follow the patient make recommendations were appropriate. Plan dated 12/11/2021. The patient apparently is going back to the operating room later today. I've asked the nurse to get a stat cortisol level. This is because of the increasing norepinephrine requirements and lower blood pressures. 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 Little or no urine output was noted. The patient's BUN and creatinine has increased. Labs, x-rays, and medications are all reviewed. Prognosis is guarded. We will continue to follow and make recommendations where appropriate. The patient remains on Zosyn. Plan dated 12/12/2021. The patient went back to the operating room yesterday, and has some additional bowel resected. The patient remains on the mechanical ventilator. The patient had a hemodialysis catheter placed, and will undergo hemodialysis today. The plan is to take her back to the operating room later today. She has a wound VAC in place, and also a Gaetano-Ojeda drain. Labs, x-rays, and medications are reviewed. She remains on Zosyn. She also remains on norepinephrine at 30 mcg/m. I will add hydrocortisone 50 mg IV push every 6 hours. Prognosis is very guarded. We will continue to follow and make recommendations where appropriate. Plan dated 12/13/2021. The patient went back to the operating room yesterday, had an ileocolonic anastomosis. The patient is postop day #4 from the initial surgery. She remains on the mechanical ventilator. She had hemodialysis on December 12 and will have hemodialysis again on December 13. We will attempt a daily interruption of sedation after hemodialysis today. The patient remains on propofol, and norepinephrine, albeit at lower doses. Blood gases are reasonable. TPN will be started today. We will continue to follow make recommendations were appropriate. Prognosis is certainly guarded. Time with Patient: Greater than 30
--- NOTE | 2021-12-13 10:29 | P.PN ---
Subjective Progress Note Date: 12/13/21 A she is seen today in the ICU and remains mechanically ventilated. She's postop day 4, status post exploratory laparotomy, small bowel resection, excision of umbilicus and hernia sac, reduction of ventral hernia, and wound VAC placement. She is atrial fibrillation with a poorly controlled ventricular rate on the monitor. Patient will receive dialysis today. Heart rate is better controlled ranging from 110-123 bpm. She continues on IV Lopressor. Hypotension has improved. Levo continues to be titrated down. Wbc has also improved today 17.3. Will increase Lopressor tomorrow if patient's pressure maintains after dialysis today. Objective - Vital Signs Vital signs: Vital Signs Temp 97.8 F 12/12/21 17:33 Pulse 124 H 12/13/21 07:00 Resp 12 12/13/21 07:00 BP 131/62 12/13/21 07:00 Pulse Ox 96 12/13/21 07:00 Intake & Output 12/12/21 12/13/21 12/13/21 18:59 06:59 18:59 Intake Total 2673.237 1863.311 106 Output Total 1045 265 Balance 6625.284 0893.311 106 Weight 151.4 kg Intake: IV 1650 1472 106 Lactated Ringers 1,000 ml 1100 1200 100 @ 100 mls/hr IV .Q10H [facility] Rx#:[id number] Piperacillin-Tazobactam 3 100 200 .375 gm In Sodium Chloride 0.9% 100 ml @ 25 mls/hr IVPB Q12H [facility] Rx# :[id number] Pressure Bag 72 6 Intake, IV Titration 723.237 391.311 Amount Norepinephrine 8 mg In 523.237 291.311 Sodium Chloride 0.9% 250 ml @ 0.05 MCG/KG/MIN 12. 507 mls/hr IV .[id number] [facility] Rx#:[id number] propofoL 1,000 mg In 200 100 Empty Bag 1 bag @ Titrate IV .Q0M [facility] Rx#: [id number] Hemodialysis 300 Output: Drainage 200 Left Lower Abdomen 200 Urine 30 65 Hemodialysis 1000 Estimated Blood Loss 15 Other: Voiding Method Indwelling Catheter Indwelling Catheter Indwelling Catheter ABP, PAP, CO, CI - Last Documented Arterial Blood Pressure 124/53 - Exam PHYSICAL EXAM: VITAL SIGNS: Reviewed. LABS: Reviewed GENERAL: Well-developed in no acute distress. HEENT: Head is normocephalic. Pupils are equal, round. Sclerae anicteric. Mucous membranes of the mouth are moist. NECK: Supple. No JVD or thyromegaly RESPIRATORY: Mechanically ventilated. Lungs diminished to auscultation b ilaterally. CARDIO: Regular rate and rhythm. S1 and S2 heard. No murmur or gallops. EXTREMITIES: Normal range of motion. No clubbing or cyanosis. Peripheral pulses intact. pitting bilateral lower extremity edema NEURO: Patient is sedated - Labs CBC & Chem 7: 12/13/21 05:00 12/13/21 05:00 Labs: Abnormal Lab Results - Last 24 Hours (Table) 12/12/21 12/13/21 12/13/21 Range/Units 11:21 01:18 05:00 WBC 17.3 H (3.8-10.6) k/uL RBC 3.19 L (3.80-5.40) m/uL Hgb 9.3 L D (11.4-16.0) gm/dL Hct 30.8 L (34.0-46.0) % MCHC 30.3 L (31.0-37.0) g/dL RDW 16.6 H (11.5-15.5) % Neutrophils # 15.4 H (1.3-7.7) k/uL Lymphocytes # 0.9 L (1.0-4.8) k/uL ABG pO2 (83-108) mmHg ABG O2 Saturation (94-97) % Sodium (137-145) mmol/L Chloride (98-107) mmol/L Carbon Dioxide (22-30) mmol/L BUN (7-17) mg/dL Creatinine (0.52-1.04) mg/dL Glucose (74-99) mg/dL POC Glucose (mg/dL) 154 H 112 H (75-99) mg/dL Calcium (8.4-10.2) mg/dL 12/13/21 12/13/21 12/13/21 Range/Units 05:00 05:20 05:58 WBC (3.8-10.6) k/uL RBC (3.80-5.40) m/uL Hgb (11.4-16.0) gm/dL Hct (34.0-46.0) % MCHC (31.0-37.0) g/dL RDW (11.5-15.5) % Neutrophils # (1.3-7.7) k/uL Lymphocytes # (1.0-4.8) k/uL ABG pO2 63 L (83-108) mmHg ABG O2 Saturation 91.6 L (94-97) % Sodium 135 L (137-145) mmol/L Chloride 109 H (98-107) mmol/L Carbon Dioxide 20 L (22-30) mmol/L BUN 43 H (7-17) mg/dL Creatinine 3.62 H (0.52-1.04) mg/dL Glucose 125 H (74-99) mg/dL POC Glucose (mg/dL) 132 H (75-99) mg/dL Calcium 7.7 L (8.4-10.2) mg/dL Microbiology - Last 24 Hours (Table) 12/09/21 21:30 Gram Stain - Final Sputum Sputum Culture - Final Assessment and Plan Assessment: Persistent atrial fibrillation with poorly controlled ventricular rate Improved hypotension Strangulated hernia status post surgery Plan: Continue with current dose of IV Lopressor Will continue increase Lopressor if tolerated by blood pressure after hemodialysis Continue titrating down on levo as tolerated Continue all other current cardiac medications Further recommendations based on clinical course The above impression and plan of care have been discussed and directed by the signing physician. Tomeka Bennett, nurse practitioner, acting as scribe for princess ferrara.
[2021-12-13] MEDS: PANTOPRAZOLE 40 MG/10 ML VIAL IV SCH (10:50)
[2021-12-13] MEDS: CHLORHEXIDINE GLUCONATE 15 ML CUP MUCOUS MEM SCH ×2 (10:50→20:06)
--- NOTE | 2021-12-13 11:03 | P.PN ---
Subjective Patient is seen for follow-up for acute kidney injury. She has underlying chronic kidney disease NKF stage IV with baseline creatinine about 2-2.5 mg/dL. Patient also has a history of cardiomyopathy with ejection fraction 40-45%. Patient was admitted to the hospital with abdominal pain and incarcerated ventral hernia with skin necrosis and bowel necrosis with perforation. Patient is status post explorative laparotomy on 12/09/2021 with excision of umbilicus and hernial sac reduction of ventral hernia. And small bowel resection. Postoperatively patient was hypotensive requiring levo fed. Her urine output has an minimal since her surgery. Patient was taken back to or yesterday and had further resection of her bowel. Patient was taken back to or for the third time yesterday and had further resection of the bowel and [id number] il eocolonic anastomosis. A wound VAC was placed as well. Levo fed is currently almost off. Patient remains on the vent at 30% FiO2. Patient was dialyzed yesterday as her urine output remains minimal Patient will be dialyzed again today this will be her second treatment. Of note, patient has had about 60 mL of urine overnight Objective - Vital Signs Vital signs: Vital Signs Temp 98.4 F 12/13/21 08:00 Pulse 125 H 12/13/21 10:30 Resp 16 12/13/21 10:30 BP 161/75 12/13/21 10:30 Pulse Ox 98 12/13/21 10:30 Intake & Output 12/12/21 12/13/21 12/13/21 18:59 06:59 18:59 Intake Total 2673.237 1863.311 516.988 Output Total 1045 265 0 Balance 9652.143 6190.311 516.988 Weight 151.4 kg Intake: IV 1650 1472 424 Lactated Ringers 1,000 ml 1100 1200 400 @ 100 mls/hr IV .Q10H [facility] Rx#:[id number] Piperacillin-Tazobactam 3 100 200 .375 gm In Sodium Chloride 0.9% 100 ml @ 25 mls/hr IVPB Q12H [facility] Rx# :[id number] Pressure Bag 72 24 Intake, IV Titration 723.237 391.311 92.988 Amount Norepinephrine 8 mg In 523.237 291.311 Sodium Chloride 0.9% 250 ml @ 0.05 MCG/KG/MIN 12. 507 mls/hr IV .[id number] [facility] Rx#:[id number] propofoL 1,000 mg In 200 100 92.988 Empty Bag 1 bag @ Titrate IV .Q0M [facility] Rx#: [id number] Hemodialysis 300 Output: Drainage 200 Left Lower Abdomen 200 Urine 30 65 0 Hemodialysis 1000 Estimated Blood Loss 15 Other: Voiding Method Indwelling Catheter Indwelling Catheter Indwelling Catheter ABP, PAP, CO, CI - Last Documented Arterial Blood Pressure 133/62 - Exam Patient is sedated She is on the vent. Examination of the heart S1 and S2 Examination lungs bilateral breath sounds are heard Abdomen is soft wound is dressed with wound VAC Examination lower extremities shows 1+ edema TILE GRADER exam cannot be performed - Labs CBC & Chem 7: 12/13/21 05:00 12/13/21 05:00 Labs: Abnormal Lab Results - Last 24 Hours (Table) 12/12/21 12/13/21 12/13/21 Range/Units 11:21 01:18 05:00 WBC 17.3 H (3.8-10.6) k/uL RBC 3.19 L (3.80-5.40) m/uL Hgb 9.3 L D (11.4-16.0) gm/dL Hct 30.8 L (34.0-46.0) % MCHC 30.3 L (31.0-37.0) g/dL RDW 16.6 H (11.5-15.5) % Neutrophils # 15.4 H (1.3-7.7) k/uL Lymphocytes # 0.9 L (1.0-4.8) k/uL ABG pO2 (83-108) mmHg ABG O2 Saturation (94-97) % Sodium (137-145) mmol/L Chloride (98-107) mmol/L Carbon Dioxide (22-30) mmol/L BUN (7-17) mg/dL Creatinine (0.52-1.04) mg/dL Glucose (74-99) mg/dL POC Glucose (mg/dL) 154 H 112 H (75-99) mg/dL Calcium (8.4-10.2) mg/dL 12/13/21 12/13/21 12/13/21 Range/Units 05:00 05:20 05:58 WBC (3.8-10.6) k/uL RBC (3.80-5.40) m/uL Hgb (11.4-16.0) gm/dL Hct (34.0-46.0) % MCHC (31.0-37.0) g/dL RDW (11.5-15.5) % Neutrophils # (1.3-7.7) k/uL Lymphocytes # (1.0-4.8) k/uL ABG pO2 63 L (83-108) mmHg ABG O2 Saturation 91.6 L (94-97) % Sodium 135 L (137-145) mmol/L Chloride 109 H (98-107) mmol/L Carbon Dioxide 20 L (22-30) mmol/L BUN 43 H (7-17) mg/dL Creatinine 3.62 H (0.52-1.04) mg/dL Glucose 125 H (74-99) mg/dL POC Glucose (mg/dL) 132 H (75-99) mg/dL Calcium 7.7 L (8.4-10.2) mg/dL Microbiology - Last 24 Hours (Table) 12/09/21 21:30 Gram Stain - Final Sputum Sputum Culture - Final Assessment and Plan Assessment: 1. Acute kidney injury ATN currently oliguric secondary to hypotension. Starting dialysis today 12/12/2021 2. Chronic kidney disease stage IV secondary to cardiorenal syndrome creatinine 2-2.5 mg/dL. No evidence of proteinuria on UA No hydronephrosis on CAT scan 3. Strangulated abdominal wall hernia with bowel necrosis status post explorative laparotomy with bowel resection and excision of umbilical hernia sac. Taken back to OR on 12/11/2021 with further resection of the bowel and a gain on 12/12/2021. Patient had ileocolonic anastomosis and a wound VAC was placed. 4. Chronic A. fib with episodes of tachycardia, currently being treated with IV Lopressor. 5. Cardiomyopathy with ejection fraction of 40-45% previously 6. Hyperkalemia associated with acute kidney injury, improved with dialysis 7 Shock related to intra-abdominal source. Levo fed currently almost off post surgery Plan: Repeat hemodialysis today Decrease IV fluids to 50 mL an hour
[2021-12-13 11:24] LABS: Glucose,Whole Blood 129 mg/dL (75-99)
--- NOTE | 2021-12-13 15:38 | P.PN ---
Subjective Progress Note Date: 12/13/21 Patient seen and examined at bedside. Currently undergoing hemodialysis. Patient is on low-dose norepinephrine. Per nursing, attempt is being made to wean from pressers. Patient is responding with sedation holiday as well. JADE drain with serosanguineous output. Serous output from wound VAC as well. No significant output from nasogastric tube. Objective - Vital Signs Vital signs: Vital Signs Temp 97.8 F 12/13/21 15:12 Pulse 116 H 12/13/21 14:00 Resp 19 12/13/21 15:12 BP 142/65 12/13/21 15:12 Pulse Ox 99 12/13/21 14:00 Intake & Output 12/12/21 12/13/21 12/13/21 18:59 06:59 18:59 Intake Total 2673.237 5231.306 3535.650 Output Total 4642 666 8482 Balance 7557.690 1361.311 -259.350 Weight 151.4 kg 151.4 kg Intake: IV 1650 1472 598 Lactated Ringers 1,000 ml 1100 1200 550 @ 50 mls/hr IV .Q20H [facility] Rx#:[id number] Piperacillin-Tazobactam 3 100 200 .375 gm In Sodium Chloride 0.9% 100 ml @ 25 mls/hr IVPB Q12H [facility] Rx# :[id number] Pressure Bag 72 48 Intake, IV Titration 723.237 391.311 182.650 Amount Norepinephrine 8 mg In 523.237 291.311 28.851 Sodium Chloride 0.9% 250 ml @ 0.05 MCG/KG/MIN 12. 507 mls/hr IV .[id number] [facility] Rx#:[id number] propofoL 1,000 mg In 200 100 153.799 Empty Bag 1 bag @ Titrate IV .Q0M [facility] Rx#: [id number] Hemodialysis 300 300 Output: Drainage 200 Left Lower Abdomen 200 Urine 30 65 40 Hemodialysis 1000 1300 Estimated Blood Loss 15 Other: Voiding Method Indwelling Catheter Indwelling Catheter Indwelling Catheter ABP, PAP, CO, CI - Last Documented Arterial Blood Pressure 121/64 - Constitutional Constitutional Comment(s): Vented and sedated - Gastrointestinal Gastrointestinal Comment(s): JADE drain with serosanguineous output, wound VAC over the incision with appropriate seal, no significant distention - Labs CBC & Chem 7: 12/13/21 05:00 12/13/21 05:00 Labs: Abnormal Lab Results - Last 24 Hours (Table) 12/13/21 12/13/21 12/13/21 Range/Units 01:18 05:00 05:00 WBC 17.3 H (3.8-10.6) k/uL RBC 3.19 L (3.80-5.40) m/uL Hgb 9.3 L D (11.4-16.0) gm/dL Hct 30.8 L (34.0-46.0) % MCHC 30.3 L (31.0-37.0) g/dL RDW 16.6 H (11.5-15.5) % Neutrophils # 15.4 H (1.3-7.7) k/uL Lymphocytes # 0.9 L (1.0-4.8) k/uL ABG pO2 (83-108) mmHg ABG O2 Saturation (94-97) % Sodium 135 L (137-145) mmol/L Chloride 109 H (98-107) mmol/L Carbon Dioxide 20 L (22-30) mmol/L BUN 43 H (7-17) mg/dL Creatinine 3.62 H (0.52-1.04) mg/dL Glucose 125 H (74-99) mg/dL POC Glucose (mg/dL) 112 H (75-99) mg/dL Calcium 7.7 L (8.4-10.2) mg/dL 12/13/21 12/13/21 12/13/21 Range/Units 05:20 05:58 11:22 WBC (3.8-10.6) k/uL RBC (3.80-5.40) m/uL Hgb (11.4-16.0) gm/dL Hct (34.0-46.0) % MCHC (31.0-37.0) g/dL RDW (11.5-15.5) % Neutrophils # (1.3-7.7) k/uL Lymphocytes # (1.0-4.8) k/uL ABG pO2 63 L (83-108) mmHg ABG O2 Saturation 91.6 L (94-97) % Sodium (137-145) mmol/L Chloride (98-107) mmol/L Carbon Dioxide (22-30) mmol/L BUN (7-17) mg/dL Creatinine (0.52-1.04) mg/dL Glucose (74-99) mg/dL POC Glucose (mg/dL) 132 H 129 H (75-99) mg/dL Calcium (8.4-10.2) mg/dL Microbiology - Last 24 Hours (Table) 12/09/21 21:30 Gram Stain - Final Sputum Sputum Culture - Final Assessment and Plan Plan: 71-year-old female that presented with a strangulated ventral hernia with bowel ischemia and perforation. She initially underwent an exploratory laparotomy and small bowel resection with discontinuity and Apthera placement with plan for second look for further evaluation of any demarcation of the bowel secondary to ischemic changes. Second look exploratory laparotomy required further bowel resection. Third look was also performed in which patient did have an ileocolic anastomosis created. Wound VAC was applied over the wound. Patient is currently undergoing hemodialysis and is being weaned from pressors. She is responding well to sedation holiday with plans for attempting to wean to extubate in the next few days. Continue with ICU management at this time. We'll continue with wound VAC with likely wound VAC change at bedside in 24 hours. Continue infectious disease recommendations for antibiotics.
[2021-12-13 15:51] LABS: Albumin 2.1 g/dL (3.5-5.0); Phosphorus 6.4 mg/dL (2.5-4.5)
--- NOTE | 2021-12-13 16:16 | P.PN ---
Subjective Progress Note Date: 12/13/21 History of present illness per H&P: Patient is a 71-year-old female with a history of A. fib anticoagulated on Coumadin, history of prior pulmonary embolism and DVT with known MTHFR, systolic congestive heart failure with ejection fraction 45-50% (recovered from 30-35%) and chronic kidney disease stage IV following with nephrology on an outpatient basis who presented for abdominal wall hernia that is no longer reducible. On arrival she was found to be tachycardic. Laboratory analysis showed a white blood cell count of 13.8, creatinine was near her baseline at 2.13 consistent with her chronic kidney disease stage IV, glucose was mildly elevated at 153 on the laboratory analysis is otherwise unremarkable. She underwent a CT abdomen and pelvis which demonstrated a large lower anterior abdominal wall ventral hernia containing multiple bowel loops without signs of obstruction. In the emergency department she was started on Zosyn, IV fluids, and pain medications. She was placed in observation for further surgical evaluation. Patient seen adnexamined at bedside. Has abdominal wall hernia that was reproducible until yesterday. Now having pain at the hernia site that wraps to her back. Had a bowel movement where she had to bare down and then noticed that it was no longer reducible. + nuasea with vomiting X 1. No dificulty with urination. + Shortness of breath after this incident. She uses a walker at baseline. She is independent with bathing and dressing as well as meal prep. She does have assistance with cleaning. She is able to walk for steroids at this time with physical therapy, but has been unable to leave her house. She is unable to walk a full flight of stairs. She denies any recent episodes of chest pain or syncope. Status post exploratory laparotomy, excision of umbilicus and hernia sac, small bowel resection, reduction of ventral hernia and wound VAC placement on December 09 Interval history: 12/12 Patient was seen and examined at the bedside. Still sedated and intubated. Patient was taken to or yesterday she had 220 cm necrotic small bowel removed by general surgery with wound VAC placement. Since yesterday she has required dialysis catheter placement and has started hemodialysis this morning. Chest x-ray shows persistent bilateral infiltrates, laboratory studies show a significant leukocytosis but her pressor requirement is starting to come down, mean arterial pressures are adequate. 12/13 patient was examined at bedside. She is still intubated. She is currently off Levothroid. She was taken to or yesterday for third expiratory laparotomy she had [id number] ileocolonic anastomosis with closure of mesenteric defect. Objective - Vital Signs Vital signs: Vital Signs Temp 97.4 F L 12/13/21 16:00 Pulse 113 H 12/13/21 16:00 Resp 16 12/13/21 16:00 BP 151/74 12/13/21 16:00 Pulse Ox 99 12/13/21 16:00 Intake & Output 12/12/21 12/13/21 12/13/21 18:59 06:59 18:59 Intake Total 2673.237 1985.517 8441.962 Output Total 6930 565 5288 Balance 6940.337 4602.311 -1070.038 Weight 151.4 kg 151.4 kg Intake: IV 1650 1472 710 Lactated Ringers 1,000 ml 1100 1200 650 @ 50 mls/hr IV .Q20H [facility] Rx#:[id number] Piperacillin-Tazobactam 3 100 200 .375 gm In Sodium Chloride 0.9% 100 ml @ 25 mls/hr IVPB Q12H [facility] Rx# :[id number] Pressure Bag 72 60 Intake, IV Titration 723.237 391.311 279.962 Amount Norepinephrine 8 mg In 523.237 291.311 78.881 Sodium Chloride 0.9% 250 ml @ 0.05 MCG/KG/MIN 12. 507 mls/hr IV .[id number] [facility] Rx#:[id number] propofoL 1,000 mg In 200 100 201.081 Empty Bag 1 bag @ Titrate IV .Q0M [facility] Rx#: [id number] Hemodialysis 300 300 Output: Drainage 200 Left Lower Abdomen 200 Urine 30 65 60 Hemodialysis 1000 1300 Estimated Blood Loss 15 Other 1000 Other: Voiding Method Indwelling Catheter Indwelling Catheter Indwelling Catheter ABP, PAP, CO, CI - Last Documented Arterial Blood Pressure 144/66 - Exam General: Patient intubated Derm: warm, dry Head: atraumatic, normocephalic, symmetric Eyes: EOMI, no lid lag, anicteric sclera Mouth: no lip lesion, mucus membranes moist Cardiovascular: Irregular regular rhythm. A. fib Lungs: CTA bilateral, no rhonchi, no rales , no accessory muscle use Abdominal: Soft without bowel sounds. [address] Abdomen is open Ext: no gross muscle atrophy, no edema, no contractures Neuro: Cannot be assessed patient is sedated - Labs CBC & Chem 7: 12/13/21 05:00 12/13/21 05:00 Labs: Abnormal Lab Results - Last 24 Hours (Table) 12/13/21 12/13/21 12/13/21 Range/Units 01:18 05:00 05:00 WBC 17.3 H (3.8-10.6) k/uL RBC 3.19 L (3.80-5.40) m/uL Hgb 9.3 L D (11.4-16.0) gm/dL Hct 30.8 L (34.0-46.0) % MCHC 30.3 L (31.0-37.0) g/dL RDW 16.6 H (11.5-15.5) % Neutrophils # 15.4 H (1.3-7.7) k/uL Lymphocytes # 0.9 L (1.0-4.8) k/uL ABG pO2 (83-108) mmHg ABG O2 Saturation (94-97) % Sodium 135 L (137-145) mmol/L Chloride 109 H (98-107) mmol/L Carbon Dioxide 20 L (22-30) mmol/L BUN 43 H (7-17) mg/dL Creatinine 3.62 H (0.52-1.04) mg/dL Glucose 125 H (74-99) mg/dL POC Glucose (mg/dL) 112 H (75-99) mg/dL Calcium 7.7 L (8.4-10.2) mg/dL Phosphorus (2.5-4.5) mg/dL Albumin (3.5-5.0) g/dL 12/13/21 12/13/21 12/13/21 Range/Units 05:00 05:20 05:58 WBC (3.8-10.6) k/uL RBC (3.80-5.40) m/uL Hgb (11.4-16.0) gm/dL Hct (34.0-46.0) % MCHC (31.0-37.0) g/dL RDW (11.5-15.5) % Neutrophils # (1.3-7.7) k/uL Lymphocytes # (1.0-4.8) k/uL ABG pO2 63 L (83-108) mmHg ABG O2 Saturation 91.6 L (94-97) % Sodium (137-145) mmol/L Chloride (98-107) mmol/L Carbon Dioxide (22-30) mmol/L BUN (7-17) mg/dL Creatinine (0.52-1.04) mg/dL Glucose (74-99) mg/dL POC Glucose (mg/dL) 132 H (75-99) mg/dL Calcium (8.4-10.2) mg/dL Phosphorus 6.4 H (2.5-4.5) mg/dL Albumin 2.1 L (3.5-5.0) g/dL 12/13/21 Range/Units 11:22 WBC (3.8-10.6) k/uL RBC (3.80-5.40) m/uL Hgb (11.4-16.0) gm/dL Hct (34.0-46.0) % MCHC (31.0-37.0) g/dL RDW (11.5-15.5) % Neutrophils # (1.3-7.7) k/uL Lymphocytes # (1.0-4.8) k/uL ABG pO2 (83-108) mmHg ABG O2 Saturation (94-97) % Sodium (137-145) mmol/L Chloride (98-107) mmol/L Carbon Dioxide (22-30) mmol/L BUN (7-17) mg/dL Creatinine (0.52-1.04) mg/dL Glucose (74-99) mg/dL POC Glucose (mg/dL) 129 H (75-99) mg/dL Calcium (8.4-10.2) mg/dL Phosphorus (2.5-4.5) mg/dL Albumin (3.5-5.0) g/dL Assessment and Plan Assessment: Assessment and plan: Septic Shock from Small Bowel Necrosis and Perforation Strangulated abdominal wall hernia to the left of the umbilicus containing loops of bowel -December 09 status post exploratory laparotomy, excision of umbilicus hernia sac, small bowel resection, reduction of ventral hernia, and wound VAC placement. -December 11 Second Look laparotomy with abdominal exploration, resection of 220 cm necrotic small bowel segment, right hemicolectomy, temporary abdominal closure with Apthera VAC. -December 12 Third look exploratory laparotomy with [id number] antimesenteric ileocolonic anastomosis with closure of mesenteric defect, fascial block, primary fascial closure, application of negative pressure wound VAC dressing over 20 x 20 x 5 cm midline surgical soft tissue wound. -Infectious disease consulted December 11 -levophed weaned off -propofol sedation per ICU -dilaudid PRN -Hold Coumadin until clered by surgery -IV antibiotic per infectious disease Acute ventilatory dependent respiratory failure secondary to above -Vent management per critical care Atrial fibrillation with RVR -anticoagulated with Coumadin at baseline -IV Lopressor for rate control per cardiology Cardiomyopathy with ejection fraction 45-50% -Not chronically on CHARLES inhibitor, resume IV metoprolol -Continue with tele -cardiology following Acute kidney injury possibly secondary to ATN -Status post hemodialysis December 11 and -Nephrology managing Chronic kidney disease stage IV Hypercoaguability with MTHFR History of DVT and pulmonary embolism -on heparin TID for DVT PPx Severe obesity with BMI 52.1 outpt weight loss referral History of osteoarthritis. History of uterine cancer. History of gout. DVT prophylaxis: heparin TID Condition is critical.
[2021-12-13] MEDS ORDERED: MVI, ADULT NO.4 WITH VIT K 10 ML, TRACE (CONC-1ML/DOSE) 1 ML, SODIUM CHLORIDE 4MEQ/ML V... IV SCH ×7 (18:00)
[2021-12-13 18:18] LABS: Glucose,Whole Blood 107 mg/dL (75-99)
--- NOTE | 2021-12-13 22:27 | P.PN ---
Subjective Progress Note Date: 12/13/21 Principal diagnosis: Abdominal sepsis Patient is a 71 year female admitted to the hospital with abdominal pain has been diagnosis stimulated went hernia with ischemic bowel and perforation in this patient who is status post initial surgery with reduction of hernia and resection of the ischemic portion of small bowel patient was taken back to the OR on 12/12/2021 and the patient is status post [id number] antimesenteric ileocolonic anastomosis with closure of mesenteric defect facial block and application of wound VAC. On today's evaluation that is 12/13/2021, the patient is afebrile, the patient is hemodynamically stable, patient is to be intubated on the vent and FiO2 is currently stable at 30%, no significant purulent secretion through the ET or any other changes reported by the nursing staff Objective - Vital Signs Vital signs: Vital Signs Temp 98.6 F 12/13/21 20:00 Pulse 111 H 12/13/21 20:30 Resp 15 12/13/21 20:30 BP 136/70 12/13/21 20:30 Pulse Ox 99 12/13/21 20:30 Intake & Output 12/13/21 12/13/21 12/14/21 06:59 18:59 06:59 Intake Total 9070.884 8735.680 212 Output Total 265 2360 40 Balance 1598.311 -905.320 172 Weight 151.4 kg 151.4 kg Intake: IV 1472 822 112 Lactated Ringers 1,000 ml 1200 750 100 @ 50 mls/hr IV .Q20H [facility] Rx#:[id number] Piperacillin-Tazobactam 3 200 .375 gm In Sodium Chloride 0.9% 100 ml @ 25 mls/hr IVPB Q12H [facility] Rx# :[id number] Pressure Bag 72 72 12 Intake, IV Titration 391.311 332.680 100 Amount Norepinephrine 8 mg In 291.311 78.881 0 Sodium Chloride 0.9% 250 ml @ 0.05 MCG/KG/MIN 12. 507 mls/hr IV .[id number] [facility] Rx#:[id number] propofoL 1,000 mg In 100 253.799 100 Empty Bag 1 bag @ Titrate IV .Q0M [facility] Rx#: [id number] Hemodialysis 300 Output: Drainage 200 Left Lower Abdomen 200 Urine 65 60 40 Hemodialysis 1300 Other 1000 Other: Voiding Method Indwelling Catheter Indwelling Catheter Indwelling Catheter ABP, PAP, CO, CI - Last Documented Arterial Blood Pressure 133/63 - Exam GENERAL DESCRIPTION: An elderly female intubated on the vent RESPIRATORY SYSTEM: Unlabored breathing , decreased breath sounds at bases HEART: S1 S2 regular rate and rhythm , ABDOMEN: Soft , midline abdominal wound is covered with a wound VAC EXTREMITIES: No edema feet - Labs CBC & Chem 7: 12/13/21 05:00 12/13/21 05:00 Labs: Abnormal Lab Results - Last 24 Hours (Table) 12/13/21 12/13/21 12/13/21 Range/Units 01:18 05:00 05:00 WBC 17.3 H (3.8-10.6) k/uL RBC 3.19 L (3.80-5.40) m/uL Hgb 9.3 L D (11.4-16.0) gm/dL Hct 30.8 L (34.0-46.0) % MCHC 30.3 L (31.0-37.0) g/dL RDW 16.6 H (11.5-15.5) % Neutrophils # 15.4 H (1.3-7.7) k/uL Lymphocytes # 0.9 L (1.0-4.8) k/uL ABG pO2 (83-108) mmHg ABG O2 Saturation (94-97) % Sodium 135 L (137-145) mmol/L Chloride 109 H (98-107) mmol/L Carbon Dioxide 20 L (22-30) mmol/L BUN 43 H (7-17) mg/dL Creatinine 3.62 H (0.52-1.04) mg/dL Glucose 125 H (74-99) mg/dL POC Glucose (mg/dL) 112 H (75-99) mg/dL Calcium 7.7 L (8.4-10.2) mg/dL Phosphorus (2.5-4.5) mg/dL Albumin (3.5-5.0) g/dL 12/13/21 12/13/21 12/13/21 Range/Units 05:00 05:20 05:58 WBC (3.8-10.6) k/uL RBC (3.80-5.40) m/uL Hgb (11.4-16.0) gm/dL Hct (34.0-46.0) % MCHC (31.0-37.0) g/dL RDW (11.5-15.5) % Neutrophils # (1.3-7.7) k/uL Lymphocytes # (1.0-4.8) k/uL ABG pO2 63 L (83-108) mmHg ABG O2 Saturation 91.6 L (94-97) % Sodium (137-145) mmol/L Chloride (98-107) mmol/L Carbon Dioxide (22-30) mmol/L BUN (7-17) mg/dL Creatinine (0.52-1.04) mg/dL Glucose (74-99) mg/dL POC Glucose (mg/dL) 132 H (75-99) mg/dL Calcium (8.4-10.2) mg/dL Phosphorus 6.4 H (2.5-4.5) mg/dL Albumin 2.1 L (3.5-5.0) g/dL 12/13/21 12/13/21 Range/Units 11:22 18:16 WBC (3.8-10.6) k/uL RBC (3.80-5.40) m/uL Hgb (11.4-16.0) gm/dL Hct (34.0-46.0) % MCHC (31.0-37.0) g/dL RDW (11.5-15.5) % Neutrophils # (1.3-7.7) k/uL Lymphocytes # (1.0-4.8) k/uL ABG pO2 (83-108) mmHg ABG O2 Saturation (94-97) % Sodium (137-145) mmol/L Chloride (98-107) mmol/L Carbon Dioxide (22-30) mmol/L BUN (7-17) mg/dL Creatinine (0.52-1.04) mg/dL Glucose (74-99) mg/dL POC Glucose (mg/dL) 129 H 107 H (75-99) mg/dL Calcium (8.4-10.2) mg/dL Phosphorus (2.5-4.5) mg/dL Albumin (3.5-5.0) g/dL Microbiology - Last 24 Hours (Table) 12/12/21 16:37 Blood Culture - Preliminary Blood No Growth after 24 hours Assessment and Plan (1) Sepsis Current Visit: Yes Status: Acute Code(s): A41.9 - SEPSIS, UNSPECIFIED ORGANISM SNOMED Code(s): 60224506 Plan: 1patient presented to hospital with abdominal pain and did have evidence of elevated white count tachycardia meeting criteria for sepsis sources incarcerated abdominal hernia with perforated small bowel status post resection and need to cover for the enteric gram-negative with a likely pathogen. 2patient is currently covered with Zosyn 3.375 g every 8 hour and monitor clinical course closely Time with Patient: Less than 30
[2021-12-13 23:50] LABS: Glucose,Whole Blood 132 mg/dL (75-99)
[2021-12-14] MEDS ORDERED: INSULIN ASPART (NovoLOG) 100 UNIT/ML VIAL SQ SCH
[2021-12-14] MEDS: HYDROCORTISONE SUCCINATE 100 MG/2 ML VIAL IV SCH ×5 (00:08→23:43)
[2021-12-14] MEDS: HEPARIN SODIUM,PORCINE/PF 5,000 UNIT/0.5 ML SYRINGE SQ SCH ×4 (00:08→23:42)
[2021-12-14] MEDS: INSULIN ASPART (NovoLOG) 100 UNIT/ML VIAL SQ SCH ×5 (00:11→23:44)
[2021-12-14 05:39] LABS: ABG Base Excess -1.3 mmol/L; ABG HCO3 24 mmol/L (21-25); ABG Oxygen Saturation 97.6 % (94-97); ABG PCO2 39 mmHg (35-45); ABG PH 7.39 (7.35-7.45); ABG PO2 92 mmHg (83-108); ABG TCO2 25 mmol/L (19-24); Allen Test Performed? Yes
[2021-12-14 06:09] LABS: ALT <6 U/L (4-34); AST 11 U/L (14-36); African American GFR (CKD) 17 (>60 ml/min/1.73 sqM); Albumin 2.2 g/dL (3.5-5.0); Alkaline Phosphatase 26 U/L (38-126); Anion Gap 6 mmol/L; Blood Urea Nitrogen 39 mg/dL (7-17); Calcium 7.9 mg/dL (8.4-10.2); Carbon Dioxide 22 mmol/L (22-30); Chloride 107 mmol/L (98-107); Glucose 146 mg/dL (74-99); Magnesium 1.9 mg/dL (1.6-2.3); Non-African American GFR(CKD) 15 (>60 ml/min/1.73 sqM); Phosphorus 5.1 mg/dL (2.5-4.5); Potassium 4.1 mmol/L (3.5-5.1); Sodium 135 mmol/L (137-145); Total Bilirubin 0.4 mg/dL (0.2-1.3); Total Protein 4.6 g/dL (6.3-8.2)
[2021-12-14 06:18] LABS: Glucose,Whole Blood 161 mg/dL (75-99)
[2021-12-14] MEDS: PIPERACILLIN-TAZOBACTAM 3.375 GM in SODIUM CHLORIDE 0.9% 100 ML IVPB SCH ×2 (06:22→17:33)
[2021-12-14] MEDS ORDERED: FUROSEMIDE 10 MG/ML 10 ML VIAL IV STA (07:31)
--- NOTE | 2021-12-14 08:14 | XR ---
EXAMINATION TYPE: XR chest 1V portable DATE OF EXAM: 12/14/2021 COMPARISON: Chest x-ray 12/13/2021 HISTORY: Intubated TECHNIQUE: Single frontal view of the chest is obtained. FINDINGS: Findings are similar to prior exam. Endotracheal tube, NG tube, right subclavian central v enous catheter show no interval change. Pleural-parenchymal changes are thought likely to be stable. Cardiac mediastinal silhouette shows a similar appearance. IMPRESSION: Correlate for congestive heart failure, pneumonia not excluded, there may be basilar eff usions
[2021-12-14] MEDS: PANTOPRAZOLE 40 MG/10 ML VIAL IV SCH (08:41)
[2021-12-14] MEDS: CHLORHEXIDINE GLUCONATE 15 ML CUP MUCOUS MEM SCH (08:41)
--- NOTE | 2021-12-14 09:13 | P.PN ---
Subjective Progress Note Date: 12/14/21 Patient is examined today in the ICU and remains mechanically ventilated. She's postop day 5, status post exploratory laparotomy, small bowel resection, excision of umbilicus and hernia sac, reduction of ventral hernia, and wound VAC placement. She is atrial fibrillation, her ventricular rate remains uncontrolled on the monitor, ranging 90-100 bpm. Patient receive dialysis yesterday and has been able to maintain her blood pressure own her own. Levo remains off. Creatinine has improved today 3.03. IV Lopressor is prn, will change lopressor to every 8 hours scheduled. Patient remains in atrial fibrillation. Chest x-ray shows correlation for congestive heart failure and cannot exclude pneumonia. Continue to hold Coumadin for anticoagulation until cleared by surgery. Objective - Vital Signs Vital signs: Vital Signs Temp 97.8 F 12/14/21 04:00 Pulse 109 H 12/14/21 07:00 Resp 15 12/14/21 07:00 BP 126/73 12/14/21 07:00 Pulse Ox 99 12/14/21 07:00 Intake & Output 12/13/21 12/14/21 12/14/21 18:59 06:59 18:59 Intake Total 8324.813 9000.229 156 Output Total 2360 270 15 Balance -905.320 739.229 141 Weight 151.4 kg 148.5 kg Intake: IV 822 672 56 Lactated Ringers 1,000 ml 750 600 50 @ 50 mls/hr IV .Q20H [facility] Rx#:[id number] Pressure Bag 72 72 6 Intake, IV Titration 332.680 337.229 100 Amount Norepinephrine 8 mg In 78.881 37.229 Sodium Chloride 0.9% 250 ml @ 0.05 MCG/KG/MIN 12. 507 mls/hr IV .[id number] [facility] Rx#:[id number] propofoL 1,000 mg In 253.799 300 100 Empty Bag 1 bag @ Titrate IV .Q0M [facility] Rx#: [id number] Hemodialysis 300 Output: Drainage 130 Left Lower Abdomen 130 Urine 60 140 15 Hemodialysis 1300 Other 1000 Other: Voiding Method Indwelling Catheter Indwelling Catheter ABP, PAP, CO, CI - Last Documented Arterial Blood Pressure 125/61 - Exam PHYSICAL EXAM: VITAL SIGNS: Reviewed. LABS: Reviewed GENERAL: Well-developed in no acute distress. HEENT: Head is normocephalic. Pupils are equal, round. Sclerae anicteric. Mucous membranes of the mouth are moist. NECK: Supple. No JVD or thyromegaly RESPIRATORY: Mechanically ventilated. CARDIO: Regular rate and rhythm. S1 and S2 heard. No murmur or gallops. Gastrointestinal: Soft, midline abdominal wound is covered with EXTREMITIES: Normal range of motion. No clubbing or cyanosis. Peripheral pulses intact. pitting bilateral lower extremity edema NEURO: Patient is sedated - Labs CBC & Chem 7: 12/13/21 05:00 12/14/21 05:30 Labs: Abnormal Lab Results - Last 24 Hours (Table) 12/13/21 12/13/21 12/13/21 Range/Units 05:00 11:22 18:16 ABG Total CO2 (19-24) mmol/L ABG O2 Saturation (94-97) % Sodium (137-145) mmol/L BUN (7-17) mg/dL Creatinine (0.52-1.04) mg/dL Glucose (74-99) mg/dL POC Glucose (mg/dL) 129 H 107 H (75-99) mg/dL Calcium (8.4-10.2) mg/dL Phosphorus 6.4 H (2.5-4.5) mg/dL AST (14-36) U/L Alkaline Phosphatase (38-126) U/L Total Protein (6.3-8.2) g/dL Albumin 2.1 L (3.5-5.0) g/dL Triglycerides 237.00 H (0.00-149.00) mg/dL 12/13/21 12/14/21 12/14/21 Range/Units 23:48 05:30 05:36 ABG Total CO2 25 H (19-24) mmol/L ABG O2 Saturation 97.6 H (94-97) % Sodium 135 L (137-145) mmol/L BUN 39 H (7-17) mg/dL Creatinine 3.03 H (0.52-1.04) mg/dL Glucose 146 H (74-99) mg/dL POC Glucose (mg/dL) 132 H (75-99) mg/dL Calcium 7.9 L (8.4-10.2) mg/dL Phosphorus 5.1 H (2.5-4.5) mg/dL AST 11 L (14-36) U/L Alkaline Phosphatase 26 L (38-126) U/L Total Protein 4.6 L (6.3-8.2) g/dL Albumin 2.2 L (3.5-5.0) g/dL Triglycerides (0.00-149.00) mg/dL 12/14/21 Range/Units 06:16 ABG Total CO2 (19-24) mmol/L ABG O2 Saturation (94-97) % Sodium (137-145) mmol/L BUN (7-17) mg/dL Creatinine (0.52-1.04) mg/dL Glucose (74-99) mg/dL POC Glucose (mg/dL) 161 H (75-99) mg/dL Calcium (8.4-10.2) mg/dL Phosphorus (2.5-4.5) mg/dL AST (14-36) U/L Alkaline Phosphatase (38-126) U/L Total Protein (6.3-8.2) g/dL Albumin (3.5-5.0) g/dL Triglycerides (0.00-149.00) mg/dL Microbiology - Last 24 Hours (Table) 12/12/21 16:37 Blood Culture - Preliminary Blood No Growth after 24 hours Assessment and Plan Assessment: Persistent atrial fibrillation with poorly controlled ventricular rate Strangulated hernia status post surgery Septic shock from small bowel necrosis and perforation Acute respiratory failure requiring mechanical ventilation Cardiomyopathy with ejection fraction of 45-50% Acute on chronic knee disease stage IV Plan: Start IV Lopressor 5 mg every 8 scheduled Continue to hold anticoagulation until cleared by surgery Continue with telemetry monitoring CHARLES inhibitor not recommended at this time due to acute kidney injury Continue titrating down/hold levo as tolerated Continue all other current cardiac medications Further recommendations based on clinical course The above impression and plan of care have been discussed and directed by the signing physician. Tomeka Bennett, nurse practitioner, acting as scribe for signing physician.
--- NOTE | 2021-12-14 09:31 | P.PN ---
Subjective Progress Note Date: 12/14/21 Principal diagnosis: Ventilator management. Pulmonary consult dated 12/10/2021. 71-year-old female seen in room 250. The patient is postop day #1, status post exploratory laparotomy, excision of umbilicus and hernia sac, small bowel resection, reduction of ventral hernia, and wound VAC placement. We are seeing the patient for the first time in the intensive care unit. She remains on the ventilator. She apparently is being taken back to the operating room either later today or tomorrow. She is on volume assist control, rate 24, tidal volume 350, FiO2 40%, and PEEP of 5. Blood gases show pO2 83, CO2 37, and pH is 7.44. The patient is on propofol at 20 mcg/kg/m, saline at 50 mL an hour, and norepinephrine at 0.07 mcg/kg/m, which is roughly 10 mcg/m. The patient was initially seen in the emergency department on December 09, with severe abdominal pain. White count 16, hemoglobin 11.5, hematocrit 37.6, platelet count 323,000. PT 20.6, INR 2.1. Sodium 134, potassium 4.7, chlorides 106, CO2 24, anion gap 4, BUN 38, creatinine 2.26. Albumin is 2.4. Urine was negative. Chest x-ray showed diffuse bilateral infiltrates with small effusions. Progress note dated 12/11/2021. 71-year-old female, again seen in room 250. She is postop day #2, status post exploratory laparotomy, excision of umbilicus and hernia sac, small bowel resection, reduction of ventral hernia, and wound VAC placement. The patient apparently is going back to the operating room later today. The patient remains on the ventilator. She is on volume assist control, rate 24, tidal volume 350, FiO2 30%, PEEP of 5. Arterial blood gases show pO2 108, pCO2 35, and pH is 7.38. The patient is on lactated Ringer's at 100 mL an hour, propofol at 20 mcg/kg/m, and norepinephrine, at 35 mcg/m. I've asked the nurse to get a stat cortisol level, and apparently she was given Lasix 80 mg by nephrology earlier this morning, and has had less than 10 mL of urine output. White count 18.5, hemoglobin 12.9, hematocrit 43.5, platelet count 393,000. Sodium 133, potassium I.4, chlorides 106, CO2 19, anion gap 8, BUN 42, and creatinine 3.27. Microbiologic studies are thus far negative. Chest x-ray shows diffuse bilateral airspace disease. Endotracheal tube and NG tube are noted. Progress note dated 12/12/2021. 71-year-old female, again seen in room 250. She's postop day #3, status post ex ploratory laparotomy, excision of umbilicus and hernia sac, small bowel resection, reduction of ventral hernia, and wound VAC placement. The patient went back to the operating room yesterday, and had 220 cm of small bowel removed. A hemodialysis catheter was placed. She will have hemodialysis today. Later today, the patient will go back to the operating room. She has a wound VAC in place, and a Gaetano-Ojeda drain as well. The patient remains on the ventilator. She is on the volume assist control mode, rate 24, tidal volume 350, FiO2 30%, and PEEP of 5. Arterial blood gases show pO2 of 78, pCO2 35, and a pH is 7.35. The patient is on norepinephrine, at 30 mcg/m, lactated Ringer's at 100 mL an hour, and propofol at 20 mcg/kg/m. White count 21.9, hemoglobin 11.4, hematocrit 37, and platelet count 328,000. Sodium 133, potassium 5.2, chlorides 106, CO2 17, anion gap 10, BUN 50, and creatinine 4.13. Microbiologic studies are thus far negative. The patient's chest x-ray shows diffuse bilateral infiltrates. Stat cortisol level was 38. Progress note dated 12/13/2021. 71-year-old female again seen in room 250. She's postop day #4, status post exploratory laparotomy, excision of umbilicus and hernia sac, small bowel resection, reduction of ventral hernia, and wound VAC placement. She's been back to the operating room now 2 additional times. Initially, she had additiona l small bowel resection. Yesterday, she had hemodialysis, and she'll have hemodialysis again today. She went back to the operating room on December 12, and had a exploratory laparotomy with [id number] anterior mesenteric ileocolonic anastomosis with closure of mesenteric defect, fascial block, primary fascial closure, and application of a negative pressure wound VAC dressing. The patient remains on the mechanical ventilator. She is on volume assist control, rate 24, tidal volume 350, FiO2 30%, and PEEP of 5. Blood gases show pO2 63, pCO2 37, and pH is 7.36. She is on propofol at 25 mcg/kg/m, lactated Ringer's at 100 mL an hour, and norepinephrine at 0.02 mcg/kg/m. Today we'll start TPN. We'll attempt a daily interruption of sedation after hemodialysis today. I've asked the nurse to assess surgeon whether or not there is any plans for follow-up surgery. White count 17.3, hemoglobin 9.3, hematocrit 31, platelet count 244,000. Sodium 135, potassium 4.6, chlorides 109, CO2 20, anion gap 6, BUN 43, with creatinine 3.62. Calcium is 7.7. Microbiologic studies are thus far negative. Chest x-ray is a bit improved. Progress note dated 12/14/2021. 71-year-old female seen in room 250. She's postop day #5, status post exploratory laparotomy, excision of umbilicus, and hernia sac, small bowel resection, reduction of ventral hernia, and wound VAC placement. She has been back to the operating room 2 times subsequent to that, first for small bowel resection, and second, for a ileocolonic anastomosis. The patient has had hemodialysis now daily for 3 days. Microbiology is negative. The patient remains on Zosyn. We will attempt a daily interruption of sedation today, and a spontaneous breathing trial. The patient will get Lasix 60 mg IV push today. Endotracheal tube and NG tube are noted. Current vent settings are volume assist control, rate 24, tidal volume 350, FiO2 30%, PEEP of 5. Blood gases show pO2 of 92, pCO2 39, and pH is 7.39. The patient's on propofol at 40 mcg/kg/m, lactated Ringer's at 50 mL an hour, TPN at 30 mL an hour, and norepinephrine is currently on hold. Sodium 135, potassium 4.1, chlorides 107, CO2 22, BUN 39, creatinine 3.03. There was no CBC today. Albumin is 2.2. Chest x-ray is consistent with diffuse bilateral infiltrates, which could relate to fluid overload and/or pneumonia. Objective - Vital Signs Vital signs: Vital Signs Temp 97.7 F 12/14/21 08:00 Pulse 87 12/14/21 09:00 Resp 24 12/14/21 09:00 BP 125/70 12/14/21 09:00 Pulse Ox 99 12/14/21 09:00 Intake & Output 12/13/21 12/14/21 12/14/21 18:59 06:59 18:59 Intake Total 3611.848 9345.229 328 Output Total 2360 270 125 Balance -905.320 739.229 203 Weight 151.4 kg 148.5 kg Intake: IV 822 672 168 Lactated Ringers 1,000 ml 750 600 150 @ 50 mls/hr IV .Q20H [facility] Rx#:[id number] Pressure Bag 72 72 18 Intake, IV Titration 332.680 337.229 160 Amount Mvi, Adult No.4 with Vit 60 K 10 ml Trace (Conc-1Ml/ Dose) 1 ml Sodium Chloride 4Meq/ml Vial 48 meq Potassium Acetate 10 meq Magnesium Sulfate gm 0.5 gm Calcium Gluconate 1 gm In Amino Acids 5 %/ Dextrose 20 % 1,000 ml @ 30 mls/hr IV .Q24H [facility] Rx #:[id number] Norepinephrine 8 mg In 78.881 37.229 Sodium Chloride 0.9% 250 ml @ 0.05 MCG/KG/MIN 12. 507 mls/hr IV .[id number] [facility] Rx#:[id number] propofoL 1,000 mg In 253.799 300 100 Empty Bag 1 bag @ Titrate IV .Q0M [facility] Rx#: [id number] Hemodialysis 300 Output: Drainage 130 60 Left Lower Abdomen 130 60 Urine 60 140 65 Hemodialysis 1300 Other 1000 Other: Voiding Method Indwelling Catheter Indwelling Catheter ABP, PAP, CO, CI - Last Documented Arterial Blood Pressure 141/62 - Exam No acute distress, sedated, with an orally placed endotracheal tube, and NG tube. Saturations are 99%. HEENT examination is grossly unremarkable. Neck supple. Full range of motion. No adenopathy thyromegaly or neck vein distention. Cardiovascular examination reveals an irregular rhythm and rate. S1-S2 normal. No S3 or S4. No discernible murmur noted. Heart rate 87 bpm. Lungs reveal diffuse bilateral rhonchi. No wheezes or crackles. Breath sounds equal bilaterally. Saturations are 99%. Abdomen soft, without bowel sounds. A wound VAC is noted. Extremities are intact. No cyanosis or clubbing. Trace edema is noted. Skin is without rash or lesion. Neurologic examination cannot be assessed as the patient's currently sedated. - Labs CBC & Chem 7: 12/13/21 05:00 12/14/21 05:30 Labs: Abnormal Lab Results - Last 24 Hours (Table) 12/13/21 12/13/21 12/13/21 Range/Units 05:00 11:22 18:16 ABG Total CO2 (19-24) mmol/L ABG O2 Saturation (94-97) % Sodium (137-145) mmol/L BUN (7-17) mg/dL Creatinine (0.52-1.04) mg/dL Glucose (74-99) mg/dL POC Glucose (mg/dL) 129 H 107 H (75-99) mg/dL Calcium (8.4-10.2) mg/dL Phosphorus 6.4 H (2.5-4.5) mg/dL AST (14-36) U/L Alkaline Phosphatase (38-126) U/L Total Protein (6.3-8.2) g/dL Albumin 2.1 L (3.5-5.0) g/dL Triglycerides 237.00 H (0.00-149.00) mg/dL 12/13/21 12/14/21 12/14/21 Range/Units 23:48 05:30 05:36 ABG Total CO2 25 H (19-24) mmol/L ABG O2 Saturation 97.6 H (94-97) % Sodium 135 L (137-145) mmol/L BUN 39 H (7-17) mg/dL Creatinine 3.03 H (0.52-1.04) mg/dL Glucose 146 H (74-99) mg/dL POC Glucose (mg/dL) 132 H (75-99) mg/dL Calcium 7.9 L (8.4-10.2) mg/dL Phosphorus 5.1 H (2.5-4.5) mg/dL AST 11 L (14-36) U/L Alkaline Phosphatase 26 L (38-126) U/L Total Protein 4.6 L (6.3-8.2) g/dL Albumin 2.2 L (3.5-5.0) g/dL Triglycerides (0.00-149.00) mg/dL 12/14/21 Range/Units 06:16 ABG Total CO2 (19-24) mmol/L ABG O2 Saturation (94-97) % Sodium (137-145) mmol/L BUN (7-17) mg/dL Creatinine (0.52-1.04) mg/dL Glucose (74-99) mg/dL POC Glucose (mg/dL) 161 H (75-99) mg/dL Calcium (8.4-10.2) mg/dL Phosphorus (2.5-4.5) mg/dL AST (14-36) U/L Alkaline Phosphatase (38-126) U/L Total Protein (6.3-8.2) g/dL Albumin (3.5-5.0) g/dL Triglycerides (0.00-149.00) mg/dL Microbiology - Last 24 Hours (Table) 12/12/21 16:37 Blood Culture - Preliminary Blood No Growth after 24 hours Assessment and Plan Assessment: Postop day #5, status post exploratory laparotomy, excision of umbilicus hernia sac, small bowel resection, reduction of ventral hernia, and wound VAC placement. The patient was taken back to the operating room on December 11, and 220 cm of bowel was resected. The patient was taken back to the operating room on December 12, and had an ileocolonic anastomosis among other things. Routine postoperative ventilator management, status post intubation on December 09. Acute kidney injury, to begin hemodialysis on December 12. History of chronic atrial fibrillation. History of DVT. History of hypertension. History of pulmonary embolism. History of osteoarthritis. History of uterine cancer. History of gout. History of chronic kidney disease. Presence of the MTHFR mutation. Plan: Plan dated 12/10/2021. The patient will not be extubated as the patient is planning to go back to the operating room either later today or tomorrow. The patient's blood gases are reasonable. Vent settings are reasonable. The patient remains on propofol at 20 mcg/kg/m, and norepinephrine at 10 mcg/m. The patient's and chronic atrial fibrillation. We'll give the patient some additional volume. I told no she can use a small amount of metoprolol IV, i.e. 5 mg. Additional recommendations and suggestions are forthcoming. Prognosis is guarded. We will continue to follow the patient make recommendations were appropriate. Plan dated 12/11/2021. The patient apparently is going back to the operating room later today. I've asked the nurse to get a stat cortisol level. This is because of the increasing norepinephrine requirements and lower blood pressures. The patient was given Lasix 80 mg IV push the loan officer assistant. Little or no urine output was noted. The patient's BUN and creatinine has increased. Labs, x-rays, and medications are all reviewed. Prognosis is guarded. We will continue to follow and make recommendations where appropriate. The patient remains on Zosyn. Plan dated 12/12/2021. The patient went back to the operating room yesterday, and has some additional bowel resected. The patient remains on the mechanical ventilator. The patient had a hemodialysis catheter placed, and will undergo hemodialysis today. The plan is to take her back to the operating room later today. She has a wound VAC in place, and also a Gaetano-Ojeda drain. Labs, x-rays, and medications are reviewed. She remains on Zosyn. She also remains on norepinephrine at 30 mcg/m. I will add hydrocortisone 50 mg IV push every 6 hours. Prognosis is very guarded. We will continue to follow and make recommendations where appropriate. Plan dated 12/13/2021. The patient went back to the operating room yesterday, had an ileocolonic anastomosis. The patient is postop day #4 from the initial surgery. She remains on the mechanical ventilator. She had hemodialysis on December 12 and will have hemodialysis again on December 13. We will attempt a daily interruption of sedation after hemodialysis today. The patient remains on propofol, and norepinephrine, albeit at lower doses. Blood gases are reasonable. TPN will be started today. We will continue to follow make recommendations were appropriate. Prognosis is certainly guarded. Plan dated 12/14/2021. The patient will get Lasix 60 mg IV push. We continue with DVT and GI prophylaxis. No plans to go back to the operating room today. The patient will have hemodialysis today. This is day 3. Patient's on Zosyn. Microbiologic studies are currently negative. Blood gases are very reasonable. The patient's norepinephrine has been weaned down. The patient's on propofol at 40 mcg/kg/m. The patient's getting lactated Ringer's at 50 mL an hour, and TPN at 30 mL an hour. Continue to follow make recommendations where appropriate. Overall prognosis remains guarded. Time with Patient: Greater than 30
[2021-12-14 12:06] LABS: Glucose,Whole Blood 162 mg/dL (75-99)
--- NOTE | 2021-12-14 12:37 | P.PN ---
Subjective Patient is seen for follow-up for acute kidney injury. She has underlying chronic kidney disease NKF stage IV with baseline creatinine about 2-2.5 mg/dL. Patient also has a history of cardiomyopathy with ejection fraction 40-45%. Patient was admitted to the hospital with abdominal pain and incarcerated ventral hernia with skin necrosis and bowel necrosis with perforation. Patient is status post explorative laparotomy on 12/09/2021 with excision of umbilicus and hernial sac reduction of ventral hernia. And small bowel resection. Postoperatively patient was hypotensive requiring levo fed. Her urine output has an minimal since her surgery. Patient was taken back to or yesterday and had further resection of her bowel. Patient was taken back to or for the third time yesterday and had further resection of the bowel and [id number] il eocolonic anastomosis. A wound VAC was placed as well. Levo fed is currently off. Patient remains on the vent at 30% FiO2. Currently making urine about 20-60 cc per hour Objective - Vital Signs Vital signs: Vital Signs Temp 98 F 12/14/21 12:00 Pulse 83 12/14/21 12:00 Resp 24 12/14/21 12:00 BP 102/47 12/14/21 12:00 Pulse Ox 98 12/14/21 12:00 Intake & Output 12/13/21 12/14/21 12/14/21 18:59 06:59 18:59 Intake Total 3712.563 8162.229 686 Output Total 2360 270 305 Balance -905.320 739.229 381 Weight 151.4 kg 148.5 kg 148.5 kg Intake: IV 822 672 336 Lactated Ringers 1,000 ml 750 600 300 @ 50 mls/hr IV .Q20H [facility] Rx#:[id number] Pressure Bag 72 72 36 Intake, IV Titration 332.680 337.229 350 Amount Mvi, Adult No.4 with Vit 150 K 10 ml Trace (Conc-1Ml/ Dose) 1 ml Sodium Chloride 4Meq/ml Vial 48 meq Potassium Acetate 10 meq Magnesium Sulfate gm 0.5 gm Calcium Gluconate 1 gm In Amino Acids 5 %/ Dextrose 20 % 1,000 ml @ 30 mls/hr IV .Q24H [facility] Rx #:[id number] Norepinephrine 8 mg In 78.881 37.229 Sodium Chloride 0.9% 250 ml @ 0.05 MCG/KG/MIN 12. 507 mls/hr IV .[id number] [facility] Rx#:[id number] propofoL 1,000 mg In 253.799 300 200 Empty Bag 1 bag @ Titrate IV .Q0M [facility] Rx#: [id number] Hemodialysis 300 Output: Drainage 130 120 Left Lower Abdomen 130 120 Urine 60 140 185 Hemodialysis 1300 Other 1000 Other: Voiding Method Indwelling Catheter Indwelling Catheter Indwelling Catheter ABP, PAP, CO, CI - Last Documented Arterial Blood Pressure 88/46 - Exam Patient is sedated She is on the vent. Examination of the heart S1 and S2 Examination lungs bilateral breath sounds are heard Abdomen is soft wound is dressed with wound VAC Examination lower extremities shows 1+ edema BATTERY HAND exam cannot be performed - Labs CBC & Chem 7: 12/13/21 05:00 12/14/21 05:30 Labs: Abnormal Lab Results - Last 24 Hours (Table) 12/13/21 12/13/21 12/13/21 Range/Units 05:00 18:16 23:48 ABG Total CO2 (19-24) mmol/L ABG O2 Saturation (94-97) % Sodium (137-145) mmol/L BUN (7-17) mg/dL Creatinine (0.52-1.04) mg/dL Glucose (74-99) mg/dL POC Glucose (mg/dL) 107 H 132 H (75-99) mg/dL Calcium (8.4-10.2) mg/dL Phosphorus 6.4 H (2.5-4.5) mg/dL AST (14-36) U/L Alkaline Phosphatase (38-126) U/L Total Protein (6.3-8.2) g/dL Albumin 2.1 L (3.5-5.0) g/dL Triglycerides 237.00 H (0.00-149.00) mg/dL 12/14/21 12/14/21 12/14/21 Range/Units 05:30 05:36 06:16 ABG Total CO2 25 H (19-24) mmol/L ABG O2 Saturation 97.6 H (94-97) % Sodium 135 L (137-145) mmol/L BUN 39 H (7-17) mg/dL Creatinine 3.03 H (0.52-1.04) mg/dL Glucose 146 H (74-99) mg/dL POC Glucose (mg/dL) 161 H (75-99) mg/dL Calcium 7.9 L (8.4-10.2) mg/dL Phosphorus 5.1 H (2.5-4.5) mg/dL AST 11 L (14-36) U/L Alkaline Phosphatase 26 L (38-126) U/L Total Protein 4.6 L (6.3-8.2) g/dL Albumin 2.2 L (3.5-5.0) g/dL Triglycerides (0.00-149.00) mg/dL 12/14/21 Range/Units 12:04 ABG Total CO2 (19-24) mmol/L ABG O2 Saturation (94-97) % Sodium (137-145) mmol/L BUN (7-17) mg/dL Creatinine (0.52-1.04) mg/dL Glucose (74-99) mg/dL POC Glucose (mg/dL) 162 H (75-99) mg/dL Calcium (8.4-10.2) mg/dL Phosphorus (2.5-4.5) mg/dL AST (14-36) U/L Alkaline Phosphatase (38-126) U/L Total Protein (6.3-8.2) g/dL Albumin (3.5-5.0) g/dL Triglycerides (0.00-149.00) mg/dL Microbiology - Last 24 Hours (Table) 12/12/21 16:37 Blood Culture - Preliminary Blood No Growth after 24 hours Assessment and Plan Assessment: 1. Acute kidney injury ATN currently oliguric secondary to hypotension. Starting dialysis today 12/12/2021 2. Chronic kidney disease stage IV secondary to cardiorenal syndrome creatinine 2-2.5 mg/dL. No evidence of proteinuria on UA No hydronephrosis on CAT scan 3. Strangulated abdominal wall hernia with bowel necrosis status post explorative laparotomy with bowel resection and excision of umbilical hernia sac. Taken back to OR on 12/11/2021 with further resection of the bowel and again on 12/12/2021. Patient had ileocolonic anastomosis and a wound VAC was placed. 4. Chronic A. fib with episodes of tachycardia, currently being treated with IV Lopressor. 5. Cardiomyopathy with ejection fraction of 40-45% previously 6. Hyperkalemia associated with acute kidney injury, improved with dialysis 7 Shock related to intra-abdominal source. Levo fed currently off Plan: Hemodialysis in a.m. Repeat IV Lasix later on today as patient has had an increase in her urine output DC IV fluids
[2021-12-14] MEDS: HYDROmorphone 1 MG/ML 1 ML SYRINGE IVP PRN ×2 (12:42→23:42)
[2021-12-14] MEDS: LACTATED RINGERS 1,000 ML IV SCH (12:44)
--- NOTE | 2021-12-14 14:11 | P.PN ---
Subjective Progress Note Date: 12/14/21 History of present illness per H&P: Patient is a 71-year-old female with a history of A. fib anticoagulated on Coumadin, history of prior pulmonary embolism and DVT with known MTHFR, systolic congestive heart failure with ejection fraction 45-50% (recovered from 30-35%) and chronic kidney disease stage IV following with nephrology on an outpatient basis who presented for abdominal wall hernia that is no longer reducible. On arrival she was found to be tachycardic. Laboratory analysis showed a white blood cell count of 13.8, creatinine was near her baseline at 2.13 consistent with her chronic kidney disease stage IV, glucose was mildly elevated at 153 on the laboratory analysis is otherwise unremarkable. She underwent a CT abdomen and pelvis which demonstrated a large lower anterior abdominal wall ventral hernia containing multiple bowel loops without signs of obstruction. In the emergency department she was started on Zosyn, IV fluids, and pain medications. She was placed in observation for further surgical evaluation. Patient seen adnexamined at bedside. Has abdominal wall hernia that was reproducible until yesterday. Now having pain at the hernia site that wraps to her back. Had a bowel movement where she had to bare down and then noticed that it was no longer reducible. + nuasea with vomiting X 1. No dificulty with urination. + Shortness of breath after this incident. She uses a walker at baseline. She is independent with bathing and dressing as well as meal prep. She does have assistance with cleaning. She is able to walk for steroids at this time with physical therapy, but has been unable to leave her house. She is unable to walk a full flight of stairs. She denies any recent episodes of chest pain or syncope. Status post exploratory laparotomy, excision of umbilicus and hernia sac, small bowel resection, reduction of ventral hernia and wound VAC placement on December 09 Interval history: 12/12 Patient was seen and examined at the bedside. Still sedated and intubated. Patient was taken to or yesterday she had 220 cm necrotic small bowel removed by general surgery with wound VAC placement. Since yesterday she has required dialysis catheter placement and has started hemodialysis this morning. Chest x-ray shows persistent bilateral infiltrates, laboratory studies show a significant leukocytosis but her pressor requirement is starting to come down, mean arterial pressures are adequate. 12/13 patient was examined at bedside. She is still intubated. She was taken to or yesterday for third expiratory laparotomy she had [id number] ileocolonic anastomosis with closure of mesenteric defect. 12/14 patient was examined at the bedside. Patient still intubated. She is currently off Levophed. Still oliguric urine output is 200 over the past 24 hours. Critical care team planning possible extubation today. Objective - Vital Signs Vital signs: Vital Signs Temp 98 F 12/14/21 12:00 Pulse 91 12/14/21 14:00 Resp 15 12/14/21 14:00 BP 141/71 12/14/21 14:00 Pulse Ox 98 12/14/21 14:00 Intake & Output 12/13/21 12/14/21 12/14/21 18:59 06:59 18:59 Intake Total 5020.312 4517.229 830.771 Output Total 2360 270 465 Balance -905.320 739.229 365.771 Weight 151.4 kg 148.5 kg 148.5 kg Intake: IV 822 672 408 LR 10 Lactated Ringers 1,000 ml 750 600 350 @ 50 mls/hr IV .Q20H [facility] Rx#:[id number] Pressure Bag 72 72 48 Intake, IV Titration 332.680 337.229 422.771 Amount Mvi, Adult No.4 with Vit 210 K 10 ml Trace (Conc-1Ml/ Dose) 1 ml Sodium Chloride 4Meq/ml Vial 48 meq Potassium Acetate 10 meq Magnesium Sulfate gm 0.5 gm Calcium Gluconate 1 gm In Amino Acids 5 %/ Dextrose 20 % 1,000 ml @ 30 mls/hr IV .Q24H [facility] Rx #:[id number] Norepinephrine 8 mg In 78.881 37.229 Sodium Chloride 0.9% 250 ml @ 0.05 MCG/KG/MIN 12. 507 mls/hr IV .[id number] [facility] Rx#:[id number] propofoL 1,000 mg In 253.799 300 212.771 Empty Bag 1 bag @ Titrate IV .Q0M [facility] Rx#: [id number] Hemodialysis 300 Output: Gastric Drainage 0 Drainage 130 180 Abdomen 0 Left Lower Abdomen 130 180 Urine 60 140 285 Hemodialysis 1300 Other 1000 Other: Voiding Method Indwelling Catheter Indwelling Catheter Indwelling Catheter ABP, PAP, CO, CI - Last Documented Arterial Blood Pressure 134/63 - Exam General: Patient intubated Derm: warm, dry Head: atraumatic, normocephalic, symmetric Eyes: EOMI, no lid lag, anicteric sclera Mouth: no lip lesion, mucus membranes moist Cardiovascular: Irregular regular rhythm. A. fib Lungs: CTA bilateral, no rhonchi, no rales , no accessory muscle use Abdominal: Soft without bowel sounds. [address] Abdomen is open Ext: no gross muscle atrophy, no edema, no contractures Neuro: Cannot be assessed patient is sedated - Labs CBC & Chem 7: 12/13/21 05:00 12/14/21 05:30 Labs: Abnormal Lab Results - Last 24 Hours (Table) 12/13/21 12/13/21 12/13/21 Range/Units 05:00 18:16 23:48 ABG Total CO2 (19-24) mmol/L ABG O2 Saturation (94-97) % Sodium (137-145) mmol/L BUN (7-17) mg/dL Creatinine (0.52-1.04) mg/dL Glucose (74-99) mg/dL POC Glucose (mg/dL) 107 H 132 H (75-99) mg/dL Calcium (8.4-10.2) mg/dL Phosphorus 6.4 H (2.5-4.5) mg/dL AST (14-36) U/L Alkaline Phosphatase (38-126) U/L Total Protein (6.3-8.2) g/dL Albumin 2.1 L (3.5-5.0) g/dL Triglycerides 237.00 H (0.00-149.00) mg/dL 12/14/21 12/14/21 12/14/21 Range/Units 05:30 05:36 06:16 ABG Total CO2 25 H (19-24) mmol/L ABG O2 Saturation 97.6 H (94-97) % Sodium 135 L (137-145) mmol/L BUN 39 H (7-17) mg/dL Creatinine 3.03 H (0.52-1.04) mg/dL Glucose 146 H (74-99) mg/dL POC Glucose (mg/dL) 161 H (75-99) mg/dL Calcium 7.9 L (8.4-10.2) mg/dL Phosphorus 5.1 H (2.5-4.5) mg/dL AST 11 L (14-36) U/L Alkaline Phosphatase 26 L (38-126) U/L Total Protein 4.6 L (6.3-8.2) g/dL Albumin 2.2 L (3.5-5.0) g/dL Triglycerides (0.00-149.00) mg/dL 12/14/21 Range/Units 12:04 ABG Total CO2 (19-24) mmol/L ABG O2 Saturation (94-97) % Sodium (137-145) mmol/L BUN (7-17) mg/dL Creatinine (0.52-1.04) mg/dL Glucose (74-99) mg/dL POC Glucose (mg/dL) 162 H (75-99) mg/dL Calcium (8.4-10.2) mg/dL Phosphorus (2.5-4.5) mg/dL AST (14-36) U/L Alkaline Phosphatase (38-126) U/L Total Protein (6.3-8.2) g/dL Albumin (3.5-5.0) g/dL Triglycerides (0.00-149.00) mg/dL Microbiology - Last 24 Hours (Table) 12/12/21 16:37 Blood Culture - Preliminary Blood No Growth after 24 hours Assessment and Plan Assessment: Assessment and plan: Septic Shock from Small Bowel Necrosis and Perforation Strangulated abdominal wall hernia to the left of the umbilicus containing loops of bowel -December 09 status post exploratory laparotomy, excision of umbilicus hernia sac, small bowel resection, reduction of ventral hernia, and wound VAC placement. -December 11 Second Look laparotomy with abdominal exploration, resection of 220 cm necrotic small bowel segment, right hemicolectomy, temporary abdominal closure with Apthera VAC. -December 12 Third look exploratory laparotomy with [id number] antimesenteric ileocolonic anastomosis with closure of mesenteric defect, fascial block, primary fascial closure, application of negative pressure wound VAC dressing over 20 x 20 x 5 cm midline surgical soft tissue wound. -Infectious disease consulted December 11 -levophed weaned off -ICU plan to wean off sedation with propofol. ICU plan for extubation today -Hold Coumadin until clered by surgery -IV antibiotic per infectious disease Acute ventilatory dependent respiratory failure secondary to above -Vent management per critical care Atrial fibrillation with RVR -anticoagulated with Coumadin at baseline -IV Lopressor for rate control per cardiology Cardiomyopathy with ejection fraction 45-50% -Not chronically on CHARLES inhibitor, resume IV metoprolol -Continue with tele -cardiology following Acute kidney injury possibly secondary to ATN -Status post hemodialysis December 11 and -Nephrology managing Chronic kidney disease stage IV Hypercoaguability with MTHFR History of DVT and pulmonary embolism -on heparin TID for DVT PPx Severe obesity with BMI 52.1 outpt weight loss referral History of osteoarthritis. History of uterine cancer. History of gout. DVT prophylaxis: heparin TID Condition is critical.
[2021-12-14 14:43] LABS: ABG Base Excess -2.8 mmol/L; ABG HCO3 23 mmol/L (21-25); ABG Oxygen Saturation 97.9 % (94-97); ABG PCO2 42 mmHg (35-45); ABG PH 7.34 (7.35-7.45); ABG PO2 103 mmHg (83-108); ABG TCO2 24 mmol/L (19-24); Allen Test Performed? Yes
--- NOTE | 2021-12-14 15:21 | P.PN ---
Subjective Progress Note Date: 12/14/21 Principal diagnosis: Abdominal sepsis Patient is a 71 year female admitted to the hospital with abdominal pain has been diagnosis stimulated went hernia with ischemic bowel and perforation in this patient who is status post initial surgery with reduction of hernia and resection of the ischemic portion of small bowel patient was taken back to the OR on 12/12/2021 and the patient is status post [id number] antimesenteric ileocolonic anastomosis with closure of mesenteric defect facial block and application of wound VAC. On today's evaluation that is 12/14/2021, the patient remains to be afebrile, the patient blood pressure is marginal part of the pressor support at this point, patient remains to be intubated on the vent and FiO2 is currently stable at 30%, no significant purulent secretion through the ET or any other changes reported by the nursing staff Objective - Vital Signs Vital signs: Vital Signs Temp 98 F 12/14/21 12:00 Pulse 83 12/14/21 12:00 Resp 24 12/14/21 12:00 BP 102/47 12/14/21 12:00 Pulse Ox 98 12/14/21 12:00 Intake & Output 12/13/21 12/14/21 12/14/21 18:59 06:59 18:59 Intake Total 5692.612 6337.229 686 Output Total 2360 270 305 Balance -905.320 739.229 381 Weight 151.4 kg 148.5 kg 148.5 kg Intake: IV 822 672 336 Lactated Ringers 1,000 ml 750 600 300 @ 50 mls/hr IV .Q20H [facility] Rx#:[id number] Pressure Bag 72 72 36 Intake, IV Titration 332.680 337.229 350 Amount Mvi, Adult No.4 with Vit 150 K 10 ml Trace (Conc-1Ml/ Dose) 1 ml Sodium Chloride 4Meq/ml Vial 48 meq Potassium Acetate 10 meq Magnesium Sulfate gm 0.5 gm Calcium Gluconate 1 gm In Amino Acids 5 %/ Dextrose 20 % 1,000 ml @ 30 mls/hr IV .Q24H [facility] Rx #:[id number] Norepinephrine 8 mg In 78.881 37.229 Sodium Chloride 0.9% 250 ml @ 0.05 MCG/KG/MIN 12. 507 mls/hr IV .[id number] [facility] Rx#:[id number] propofoL 1,000 mg In 253.799 300 200 Empty Bag 1 bag @ Titrate IV .Q0M [facility] Rx#: [id number] Hemodialysis 300 Output: Drainage 130 120 Left Lower Abdomen 130 120 Urine 60 140 185 Hemodialysis 1300 Other 1000 Other: Voiding Method Indwelling Catheter Indwelling Catheter Indwelling Catheter ABP, PAP, CO, CI - Last Documented Arterial Blood Pressure 88/46 - Exam GENERAL DESCRIPTION: An elderly female intubated on the vent RESPIRATORY SYSTEM: Unlabored breathing , decreased breath sounds at bases HEART: S1 S2 regular rate and rhythm , ABDOMEN: Soft , midline abdominal wound is covered with a wound VAC EXTREMITIES: No edema feet - Labs CBC & Chem 7: 12/13/21 05:00 12/14/21 05:30 Labs: Abnormal Lab Results - Last 24 Hours (Table) 12/13/21 12/13/21 12/13/21 Range/Units 05:00 18:16 23:48 ABG Total CO2 (19-24) mmol/L ABG O2 Saturation (94-97) % Sodium (137-145) mmol/L BUN (7-17) mg/dL Creatinine (0.52-1.04) mg/dL Glucose (74-99) mg/dL POC Glucose (mg/dL) 107 H 132 H (75-99) mg/dL Calcium (8.4-10.2) mg/dL Phosphorus 6.4 H (2.5-4.5) mg/dL AST (14-36) U/L Alkaline Phosphatase (38-126) U/L Total Protein (6.3-8.2) g/dL Albumin 2.1 L (3.5-5.0) g/dL Triglycerides 237.00 H (0.00-149.00) mg/dL 12/14/21 12/14/21 12/14/21 Range/Units 05:30 05:36 06:16 ABG Total CO2 25 H (19-24) mmol/L ABG O2 Saturation 97.6 H (94-97) % Sodium 135 L (137-145) mmol/L BUN 39 H (7-17) mg/dL Creatinine 3.03 H (0.52-1.04) mg/dL Glucose 146 H (74-99) mg/dL POC Glucose (mg/dL) 161 H (75-99) mg/dL Calcium 7.9 L (8.4-10.2) mg/dL Phosphorus 5.1 H (2.5-4.5) mg/dL AST 11 L (14-36) U/L Alkaline Phosphatase 26 L (38-126) U/L Total Protein 4.6 L (6.3-8.2) g/dL Albumin 2.2 L (3.5-5.0) g/dL Triglycerides (0.00-149.00) mg/dL 12/14/21 Range/Units 12:04 ABG Total CO2 (19-24) mmol/L ABG O2 Saturation (94-97) % Sodium (137-145) mmol/L BUN (7-17) mg/dL Creatinine (0.52-1.04) mg/dL Glucose (74-99) mg/dL POC Glucose (mg/dL) 162 H (75-99) mg/dL Calcium (8.4-10.2) mg/dL Phosphorus (2.5-4.5) mg/dL AST (14-36) U/L Alkaline Phosphatase (38-126) U/L Total Protein (6.3-8.2) g/dL Albumin (3.5-5.0) g/dL Triglycerides (0.00-149.00) mg/dL Microbiology - Last 24 Hours (Table) 12/12/21 16:37 Blood Culture - Preliminary Blood No Growth after 24 hours Assessment and Plan (1) Sepsis Current Visit: Yes Status: Acute Code(s): A41.9 - SEPSIS, UNSPECIFIED ORGANISM SNOMED Code(s): 43993787 Plan: 1patient presented to hospital with abdominal pain and did have evidence of elevated white count tachycardia meeting criteria for sepsis sources incarcerated abdominal hernia with perforated small bowel status post resection and need to cover for the enteric gram-negative with a likely pathogen. 2patient is afebrile white count is trending down, patient to continue with Zosyn 3.375 g every 8 hour and monitor clinical course closely, prognosis remains to be guarded Time with Patient: Less than 30
[2021-12-14] MEDS: METOPROLOL TARTRATE 5 MG/5 ML VIAL IVP SCH ×2 (15:49→23:41)
--- NOTE | 2021-12-14 16:56 | P.PN ---
Subjective Progress Note Date: 12/14/21 Patient seen and examined at bedside. Currently intubated. Norepinephrine has been weaned off. JADE with serosanguineous output. Objective - Vital Signs Vital signs: Vital Signs Temp 97.8 F 12/14/21 16:00 Pulse 86 12/14/21 16:00 Resp 16 12/14/21 16:00 BP 138/78 12/14/21 16:00 Pulse Ox 98 12/14/21 16:00 Intake & Output 12/13/21 12/14/21 12/14/21 18:59 06:59 18:59 Intake Total 1733.343 8052.229 922.771 Output Total 2360 270 615 Balance -905.320 739.229 307.771 Weight 151.4 kg 148.5 kg 148.5 kg Intake: IV 822 672 440 LR 30 Lactated Ringers 1,000 ml 750 600 350 @ 50 mls/hr IV .Q20H [facility] Rx#:[id number] Pressure Bag 72 72 60 Intake, IV Titration 332.680 337.229 482.771 Amount Mvi, Adult No.4 with Vit 270 K 10 ml Trace (Conc-1Ml/ Dose) 1 ml Sodium Chloride 4Meq/ml Vial 48 meq Potassium Acetate 10 meq Magnesium Sulfate gm 0.5 gm Calcium Gluconate 1 gm In Amino Acids 5 %/ Dextrose 20 % 1,000 ml @ 30 mls/hr IV .Q24H [facility] Rx #:[id number] Norepinephrine 8 mg In 78.881 37.229 Sodium Chloride 0.9% 250 ml @ 0.05 MCG/KG/MIN 12. 507 mls/hr IV .[id number] [facility] Rx#:[id number] propofoL 1,000 mg In 253.799 300 212.771 Empty Bag 1 bag @ Titrate IV .Q0M [facility] Rx#: [id number] Hemodialysis 300 Output: Gastric Drainage 0 Drainage 130 180 Abdomen 0 Left Lower Abdomen 130 180 Urine 60 140 435 Hemodialysis 1300 Other 1000 Other: Voiding Method Indwelling Catheter Indwelling Catheter Indwelling Catheter ABP, PAP, CO, CI - Last Documented Arterial Blood Pressure 124/63 - Constitutional Constitutional Comment(s): intubated/sedated - Gastrointestinal Gastrointestinal Comment(s): soft, obese, wound vac in place over midline wound, JADE with serosanguinous output - Labs CBC & Chem 7: 12/13/21 05:00 12/14/21 05:30 Labs: Abnormal Lab Results - Last 24 Hours (Table) 12/13/21 12/13/21 12/13/21 Range/Units 05:00 18:16 23:48 ABG pH (7.35-7.45) ABG Total CO2 (19-24) mmol/L ABG O2 Saturation (94-97) % Sodium (137-145) mmol/L BUN (7-17) mg/dL Creatinine (0.52-1.04) mg/dL Glucose (74-99) mg/dL POC Glucose (mg/dL) 107 H 132 H (75-99) mg/dL Calcium (8.4-10.2) mg/dL Phosphorus (2.5-4.5) mg/dL AST (14-36) U/L Alkaline Phosphatase (38-126) U/L Total Protein (6.3-8.2) g/dL Albumin (3.5-5.0) g/dL Triglycerides 237.00 H (0.00-149.00) mg/dL 12/14/21 12/14/21 12/14/21 Range/Units 05:30 05:36 06:16 ABG pH (7.35-7.45) ABG Total CO2 25 H (19-24) mmol/L ABG O2 Saturation 97.6 H (94-97) % Sodium 135 L (137-145) mmol/L BUN 39 H (7-17) mg/dL Creatinine 3.03 H (0.52-1.04) mg/dL Glucose 146 H (74-99) mg/dL POC Glucose (mg/dL) 161 H (75-99) mg/dL Calcium 7.9 L (8.4-10.2) mg/dL Phosphorus 5.1 H (2.5-4.5) mg/dL AST 11 L (14-36) U/L Alkaline Phosphatase 26 L (38-126) U/L Total Protein 4.6 L (6.3-8.2) g/dL Albumin 2.2 L (3.5-5.0) g/dL Triglycerides (0.00-149.00) mg/dL 12/14/21 12/14/21 Range/Units 12:04 14:38 ABG pH 7.34 L (7.35-7.45) ABG Total CO2 (19-24) mmol/L ABG O2 Saturation 97.9 H (94-97) % Sodium (137-145) mmol/L BUN (7-17) mg/dL Creatinine (0.52-1.04) mg/dL Glucose (74-99) mg/dL POC Glucose (mg/dL) 162 H (75-99) mg/dL Calcium (8.4-10.2) mg/dL Phosphorus (2.5-4.5) mg/dL AST (14-36) U/L Alkaline Phosphatase (38-126) U/L Total Protein (6.3-8.2) g/dL Albumin (3.5-5.0) g/dL Triglycerides (0.00-149.00) mg/dL Microbiology - Last 24 Hours (Table) 12/12/21 16:37 Blood Culture - Preliminary Blood No Growth after 24 hours Assessment and Plan Plan: 71-year-old female that presented with a strangulated ventral hernia with bowel ischemia and perforation. She initially underwent an exploratory laparotomy and small bowel resection with discontinuity and Apthera placement with plan for second look for further evaluation of any demarcation of the bowel secondary to ischemic changes. Second look exploratory laparotomy required further bowel resection. Third look was also performed in which patient did have an ileocolic anastomosis created. Wound VAC was applied over the wound. Patient has been weaned from norepinephrine. Continued intubation with v entilator management. Continue wound VAC with likely wound VAC change tomorrow at bedside. Continue JADE drain. Continue intensive care management.
[2021-12-14] MEDS ORDERED: 1: MVI, ADULT NO.4 WITH VIT K 10 ML, TRACE (CONC-1ML/DOSE) 1 ML, SODIUM CHLORIDE 4MEQ/ML IV SCH ×7 (18:00)
[2021-12-14 18:17] LABS: Glucose,Whole Blood 109 mg/dL (75-99)
[2021-12-14] MEDS: 1: MVI, ADULT NO.4 WITH VIT K 10 ML, TRACE (CONC-1ML/DOSE) 1 ML, SODIUM CHLORIDE 4MEQ/ML IV SCH ×7 (20:29)
[2021-12-14 23:42] LABS: Glucose,Whole Blood 137 mg/dL (75-99)
[2021-12-15 04:59] LABS: Anisocytosis Slight; Basophils % (A) 0 %; Eosinophils % (A) 0 %; HGB 8.1 gm/dL (11.4-16.0); Hypochromasia Marked; Lymphocytes # (A) 0.7 k/uL (1.0-4.8); Lymphocytes % (A) 6 %; MCH 30.3 pg (25.0-35.0); MCHC 31.2 g/dL (31.0-37.0); MCV 97.2 fL (80.0-100.0); Macrocytosis Slight; Mean Platelet Volume 10.4; Monocytes # (A) 0.4 k/uL (0-1.0); Monocytes % (A) 4 %; Neutrophils # (A) 9.8 k/uL (1.3-7.7); Neutrophils % (A) 88 %; Platelet Count 193 k/uL (150-450); RBC 2.68 m/uL (3.80-5.40); RDW 16.6 % (11.5-15.5); WBC 11.1 k/uL (3.8-10.6)
[2021-12-15 05:15] LABS: Albumin 2.4 g/dL (3.5-5.0); Calcium 7.9 mg/dL (8.4-10.2); Magnesium 1.9 mg/dL (1.6-2.3); Phosphorus 5.2 mg/dL (2.5-4.5); Total Bilirubin 0.5 mg/dL (0.2-1.3); Total Protein 4.8 g/dL (6.3-8.2)
[2021-12-15 05:48] LABS: Glucose,Whole Blood 132 mg/dL (75-99)
[2021-12-15] MEDS: HYDROCORTISONE SUCCINATE 100 MG/2 ML VIAL IV SCH ×4 (05:56→23:29)
[2021-12-15] MEDS: PIPERACILLIN-TAZOBACTAM 3.375 GM in SODIUM CHLORIDE 0.9% 100 ML IVPB SCH ×2 (05:56→18:11)
[2021-12-15] MEDS: INSULIN ASPART (NovoLOG) 100 UNIT/ML VIAL SQ SCH ×4 (05:57→23:29)
--- NOTE | 2021-12-15 06:36 | XR ---
EXAMINATION TYPE: XR chest 1V portable DATE OF EXAM: 12/15/2021 COMPARISON: 12/14/2021 HISTORY: Tube placement TECHNIQUE: Single frontal view of the chest is obtained. FINDINGS: There is an NG tube stomach. Right-sided tip of which is in the right atrium. There is pulmonary vascular congestion and focal airspace opacity left mid lung most likely represent ing pulmonary edema. The hemidiaphragms are obscured likely secondary to bilateral pleural effusions. The heart size is prominent. There is no pneumothorax. There is marked degeneration with joint otherw ise the osseous structures are intact. IMPRESSION: No change in the acute cardiopulmonary disease described above. Right-sided central veno us catheter tip is in the right atrium. There is an NG tube within the stomach.
[2021-12-15] MEDS: METOPROLOL TARTRATE 5 MG/5 ML VIAL IVP SCH ×3 (08:00→23:30)
--- NOTE | 2021-12-15 11:00 | P.PN ---
Subjective Progress Note Date: 12/15/21 Principal diagnosis: Ventilator management. Pulmonary consult dated 12/10/2021. 71-year-old female seen in room 250. The patient is postop day #1, status post exploratory laparotomy, excision of umbilicus and hernia sac, small bowel resection, reduction of ventral hernia, and wound VAC placement. We are seeing the patient for the first time in the intensive care unit. She remains on the ventilator. She apparently is being taken back to the operating room either later today or tomorrow. She is on volume assist control, rate 24, tidal volume 350, FiO2 40%, and PEEP of 5. Blood gases show pO2 83, CO2 37, and pH is 7.44. The patient is on propofol at 20 mcg/kg/m, saline at 50 mL an hour, and norepinephrine at 0.07 mcg/kg/m, which is roughly 10 mcg/m. The patient was initially seen in the emergency department on December 09, with severe abdominal pain. White count 16, hemoglobin 11.5, hematocrit 37.6, platelet count 323,000. PT 20.6, INR 2.1. Sodium 134, potassium 4.7, chlorides 106, CO2 24, anion gap 4, BUN 38, creatinine 2.26. Albumin is 2.4. Urine was negative. Chest x-ray showed diffuse bilateral infiltrates with small effusions. Progress note dated 12/11/2021. 71-year-old female, again seen in room 250. She is postop day #2, status post exploratory laparotomy, excision of umbilicus and hernia sac, small bowel resection, reduction of ventral hernia, and wound VAC placement. The patient apparently is going back to the operating room later today. The patient remains on the ventilator. She is on volume assist control, rate 24, tidal volume 350, FiO2 30%, PEEP of 5. Arterial blood gases show pO2 108, pCO2 35, and pH is 7.38. The patient is on lactated Ringer's at 100 mL an hour, propofol at 20 mcg/kg/m, and norepinephrine, at 35 mcg/m. I've asked the nurse to get a stat cortisol level, and apparently she was given Lasix 80 mg by nephrology earlier this morning, and has had less than 10 mL of urine output. White count 18.5, hemoglobin 12.9, hematocrit 43.5, platelet count 393,000. Sodium 133, potassium I.4, chlorides 106, CO2 19, anion gap 8, BUN 42, and creatinine 3.27. Microbiologic studies are thus far negative. Chest x-ray shows diffuse bilateral airspace disease. Endotracheal tube and NG tube are noted. Progress note dated 12/12/2021. 71-year-old female, again seen in room 250. She's postop day #3, status post ex ploratory laparotomy, excision of umbilicus and hernia sac, small bowel resection, reduction of ventral hernia, and wound VAC placement. The patient went back to the operating room yesterday, and had 220 cm of small bowel removed. A hemodialysis catheter was placed. She will have hemodialysis today. Later today, the patient will go back to the operating room. She has a wound VAC in place, and a Gaetano-Ojeda drain as well. The patient remains on the ventilator. She is on the volume assist control mode, rate 24, tidal volume 350, FiO2 30%, and PEEP of 5. Arterial blood gases show pO2 of 78, pCO2 35, and a pH is 7.35. The patient is on norepinephrine, at 30 mcg/m, lactated Ringer's at 100 mL an hour, and propofol at 20 mcg/kg/m. White count 21.9, hemoglobin 11.4, hematocrit 37, and platelet count 328,000. Sodium 133, potassium 5.2, chlorides 106, CO2 17, anion gap 10, BUN 50, and creatinine 4.13. Microbiologic studies are thus far negative. The patient's chest x-ray shows diffuse bilateral infiltrates. Stat cortisol level was 38. Progress note dated 12/13/2021. 71-year-old female again seen in room 250. She's postop day #4, status post exploratory laparotomy, excision of umbilicus and hernia sac, small bowel resection, reduction of ventral hernia, and wound VAC placement. She's been back to the operating room now 2 additional times. Initially, she had additiona l small bowel resection. Yesterday, she had hemodialysis, and she'll have hemodialysis again today. She went back to the operating room on December 12, and had a exploratory laparotomy with [id number] anterior mesenteric ileocolonic anastomosis with closure of mesenteric defect, fascial block, primary fascial closure, and application of a negative pressure wound VAC dressing. The patient remains on the mechanical ventilator. She is on volume assist control, rate 24, tidal volume 350, FiO2 30%, and PEEP of 5. Blood gases show pO2 63, pCO2 37, and pH is 7.36. She is on propofol at 25 mcg/kg/m, lactated Ringer's at 100 mL an hour, and norepinephrine at 0.02 mcg/kg/m. Today we'll start TPN. We'll attempt a daily interruption of sedation after hemodialysis today. I've asked the nurse to assess surgeon whether or not there is any plans for follow-up surgery. White count 17.3, hemoglobin 9.3, hematocrit 31, platelet count 244,000. Sodium 135, potassium 4.6, chlorides 109, CO2 20, anion gap 6, BUN 43, with creatinine 3.62. Calcium is 7.7. Microbiologic studies are thus far negative. Chest x-ray is a bit improved. Progress note dated 12/14/2021. 71-year-old female seen in room 250. She's postop day #5, status post exploratory laparotomy, excision of umbilicus, and hernia sac, small bowel resection, reduction of ventral hernia, and wound VAC placement. She has been back to the operating room 2 times subsequent to that, first for small bowel resection, and second, for a ileocolonic anastomosis. The patient has had hemodialysis now daily for 3 days. Microbiology is negative. The patient remains on Zosyn. We will attempt a daily interruption of sedation today, and a spontaneous breathing trial. The patient will get Lasix 60 mg IV push today. Endotracheal tube and NG tube are noted. Current vent settings are volume assist control, rate 24, tidal volume 350, FiO2 30%, PEEP of 5. Blood gases show pO2 of 92, pCO2 39, and pH is 7.39. The patient's on propofol at 40 mcg/kg/m, lactated Ringer's at 50 mL an hour, TPN at 30 mL an hour, and norepinephrine is currently on hold. Sodium 135, potassium 4.1, chlorides 107, CO2 22, BUN 39, creatinine 3.03. There was no CBC today. Albumin is 2.2. Chest x-ray is consistent with diffuse bilateral infiltrates, which could relate to fluid overload and/or pneumonia. Progress note dated 12/15/2021. 71-year-old female, again seen in room 250. She's postop day #6, status post exploratory laparotomy, excision of umbilicus and hernia sac, small bowel resection, reduction of ventral hernia, and wound VAC placement. The patient did go back to the operating room twice, first for small bowel resection, and second for ileocolonic anastomosis. The patient had hemodialysis yesterday, and 1.5 L was removed. The plan is to do hemodialysis today, with 1-2 L being removed. Microbiologic studies are negative. The patient was successfully extubated on December 14. She is lethargic and somnolent. She does arouse. She remains on Zosyn. NG tube is noted in place. Nasal O2 is at 2 L/m. She is getting lactated Ringer's at 10 mL an hour, and TPN at 50 mL an hour. White count 11.1, hemoglobin 8.1, hematocrit 26, platelet count 193,000. Sodium 133, potassium 4, chlorides 104, CO2 23, BUN 41, and creatinine 2.68. Albumin is 2.4. Chest x-ray shows mild fluid overload/pulmonary vascular congestion. Endotracheal tube has been removed. Objective - Vital Signs Vital signs: Vital Signs Temp 98 F 12/15/21 09:44 Pulse 89 12/15/21 10:00 Resp 16 12/15/21 10:00 BP 126/61 12/15/21 10:00 Pulse Ox 98 12/15/21 10:00 Intake & Output 12/14/21 12/15/21 12/15/21 18:59 06:59 18:59 Intake Total 1114.771 853.848 189 Output Total 968 911 2156 Balance 234.771 18.848 -1761 Weight 148.5 kg 144.7 kg Intake: IV 572 758 189 LR 50 130 30 Lactated Ringers 1,000 ml 350 @ 50 mls/hr IV .Q20H [facility] Rx#:[id number] Mvi, Adult No.4 with Vit 550 150 K 10 ml Trace (Conc-1Ml/ Dose) 1 ml Sodium Chloride 4Meq/ml Vial 48 meq Potassium Acetate 10 meq Magnesium Sulfate gm 0.5 gm Calcium Gluconate 1 gm In Amino Acids 5 %/ Dextrose 20 % 1,000 ml @ 50 mls/hr IV .BY DURATION [facility] Rx#:[id number] Piperacillin-Tazobactam 3 100 .375 gm In Sodium Chloride 0.9% 100 ml @ 25 mls/hr IVPB Q12H [facility] Rx# :[id number] Pressure Bag 72 78 9 Intake, IV Titration 542.771 95.848 Amount Mvi, Adult No.4 with Vit 330 60 K 10 ml Trace (Conc-1Ml/ Dose) 1 ml Sodium Chloride 4Meq/ml Vial 48 meq Potassium Acetate 10 meq Magnesium Sulfate gm 0.5 gm Calcium Gluconate 1 gm In Amino Acids 5 %/ Dextrose 20 % 1,000 ml @ 30 mls/hr IV .Q24H [facility] Rx #:[id number] Norepinephrine 8 mg In 35.848 Sodium Chloride 0.9% 250 ml @ 0.05 MCG/KG/MIN 12. 507 mls/hr IV .[id number] [facility] Rx#:[id number] propofoL 1,000 mg In 212.771 Empty Bag 1 bag @ Titrate IV .Q0M [facility] Rx#: [id number] Hemodialysis 0 Output: Gastric Drainage 0 Drainage 350 295 Abdomen 100 180 Left Lower Abdomen 250 115 Urine 530 540 150 Hemodialysis 1800 Other: Voiding Method Indwelling Catheter Indwelling Catheter Indwelling Catheter # Bowel Movements 1 ABP, PAP, CO, CI - Last Documented Arterial Blood Pressure 136/60 - Exam No acute distress, NG tube in place, with nasal cannula at 2 L/m. Saturations are excellent. HEENT examination is grossly unremarkable. Neck supple. Full range of motion. No adenopathy thyromegaly or neck vein distention. Cardiovascular examination reveals an irregular rhythm and rate. S1-S2 normal. No S3 or S4. No discernible murmur noted. Heart rate 89 bpm. Lungs reveal diffuse bilateral rhonchi. No wheezes or crackles. Breath sounds equal bilaterally. Saturations are 99%. Abdomen soft, without bowel sounds. A wound VAC is noted. Extremities are intact. No cyanosis or clubbing. Trace edema is noted. Skin is without rash or lesion. Neurologic examination reveals the patient to be lethargic and somnolent, but sh e does arouse. - Labs CBC & Chem 7: 12/15/21 04:47 12/15/21 04:47 Labs: Abnormal Lab Results - Last 24 Hours (Table) 12/14/21 12/14/21 12/14/21 Range/Units 12:04 14:38 18:17 WBC (3.8-10.6) k/uL RBC (3.80-5.40) m/uL Hgb (11.4-16.0) gm/dL Hct (34.0-46.0) % RDW (11.5-15.5) % Neutrophils # (1.3-7.7) k/uL Lymphocytes # (1.0-4.8) k/uL ABG pH 7.34 L (7.35-7.45) ABG O2 Saturation 97.9 H (94-97) % Sodium (137-145) mmol/L BUN (7-17) mg/dL Creatinine (0.52-1.04) mg/dL Glucose (74-99) mg/dL POC Glucose (mg/dL) 162 H 109 H (75-99) mg/dL Calcium (8.4-10.2) mg/dL Phosphorus (2.5-4.5) mg/dL Alkaline Phosphatase (38-126) U/L Total Protein (6.3-8.2) g/dL Albumin (3.5-5.0) g/dL 12/14/21 12/15/21 12/15/21 Range/Units 23:40 04:47 04:47 WBC 11.1 H (3.8-10.6) k/uL RBC 2.68 L (3.80-5.40) m/uL Hgb 8.1 L (11.4-16.0) gm/dL Hct 26.0 L (34.0-46.0) % RDW 16.6 H (11.5-15.5) % Neutrophils # 9.8 H (1.3-7.7) k/uL Lymphocytes # 0.7 L (1.0-4.8) k/uL ABG pH (7.35-7.45) ABG O2 Saturation (94-97) % Sodium 133 L (137-145) mmol/L BUN 41 H (7-17) mg/dL Creatinine 2.68 H (0.52-1.04) mg/dL Glucose 127 H (74-99) mg/dL POC Glucose (mg/dL) 137 H (75-99) mg/dL Calcium 7.9 L (8.4-10.2) mg/dL Phosphorus 5.2 H (2.5-4.5) mg/dL Alkaline Phosphatase 27 L (38-126) U/L Total Protein 4.8 L (6.3-8.2) g/dL Albumin 2.4 L (3.5-5.0) g/dL 12/15/21 Range/Units 05:47 WBC (3.8-10.6) k/uL RBC (3.80-5.40) m/uL Hgb (11.4-16.0) gm/dL Hct (34.0-46.0) % RDW (11.5-15.5) % Neutrophils # (1.3-7.7) k/uL Lymphocytes # (1.0-4.8) k/uL ABG pH (7.35-7.45) ABG O2 Saturation (94-97) % Sodium (137-145) mmol/L BUN (7-17) mg/dL Creatinine (0.52-1.04) mg/dL Glucose (74-99) mg/dL POC Glucose (mg/dL) 132 H (75-99) mg/dL Calcium (8.4-10.2) mg/dL Phosphorus (2.5-4.5) mg/dL Alkaline Phosphatase (38-126) U/L Total Protein (6.3-8.2) g/dL Albumin (3.5-5.0) g/dL Microbiology - Last 24 Hours (Table) 12/12/21 16:37 Blood Culture - Preliminary Blood No Growth after 48 hours Assessment and Plan Assessment: Postop day #6, status post exploratory laparotomy, excision of umbilicus hernia sac, small bowel resection, reduction of ventral hernia, and wound VAC placement. The patient was taken back to the operating room on December 11, and 220 cm of bowel was resected. The patient was taken back to the operating room on December 12, and had an ileocolonic anastomosis among other things. Routine postoperative ventilator management, status post intubation on December 09, and successful extubation on 12/14/2021. Acute kidney injury, to begin hemodialysis on December 12. History of chronic atrial fibrillation. History of DVT. History of hypertension. History of pulmonary embolism. History of osteoarthritis. History of uterine cancer. History of gout. History of chronic kidney disease. Presence of the MTHFR mutation. Plan: Plan dated 12/10/2021. The patient will not be extubated as the patient is planning to go back to the operating room either later today or tomorrow. The patient's blood gases are reasonable. Vent settings are reasonable. The patient remains on propofol at 20 mcg/kg/m, and norepinephrine at 10 mcg/m. The patient's and chronic atrial fibrillation. We'll give the patient some additional volume. I told no she can use a small amount of metoprolol IV, i.e. 5 mg. Additional recommendations and suggestions are forthcoming. Prognosis is guarded. We will continue to follow the patient make recommendations were appropriate. Plan dated 12/11/2021. The patient apparently is going back to the operating room later today. I've asked the nurse to get a stat cortisol level. This is because of the increasing norepinephrine requirements and lower blood pressures. The patient was given Lasix 80 mg IV push the acid remover. Little or no urine output was noted. The patient's BUN and creatinine has increased. Labs, x-rays, and medications are a ll reviewed. Prognosis is guarded. We will continue to follow and make recommendations where appropriate. The patient remains on Zosyn. Plan dated 12/12/2021. The patient went back to the operating room yesterday, and has some additional bowel resected. The patient remains on the mechanical ventilator. The patient had a hemodialysis catheter placed, and will undergo hemodialysis today. The plan is to take her back to the operating room later today. She has a wound VAC in place, and also a Gaetano-Ojeda drain. Labs, x-rays, and medications are reviewed. She remains on Zosyn. She also remains on norepinephrine at 30 mcg/m. I will add hydrocortisone 50 mg IV push every 6 hours. Prognosis is very guarded. We will continue to follow and make recommendations where appropriate. Plan dated 12/13/2021. The patient went back to the operating room yesterday, had an ileocolonic anas tomosis. The patient is postop day #4 from the initial surgery. She remains on the mechanical ventilator. She had hemodialysis on December 12 and will have hemodialysis again on December 13. We will attempt a daily interruption of sedation after hemodialysis today. The patient remains on propofol, and norepinephrine, albeit at lower doses. Blood gases are reasonable. TPN will be started today. We will continue to follow make recommendations were appropriate. Prognosis is certainly guarded. Plan dated 12/14/2021. The patient will get Lasix 60 mg IV push. We continue with DVT and GI prophyl axis. No plans to go back to the operating room today. The patient will have hemodialysis today. This is day 3. Patient's on Zosyn. Microbiologic studies are currently negative. Blood gases are very reasonable. The patient's norepinephrine has been weaned down. The patient's on propofol at 40 mcg/kg/m. The patient's getting lactated Ringer's at 50 mL an hour, and TPN at 30 mL an hour. Continue to follow make recommendations where appropriate. Overall prognosis remains guarded. Plan dated 12/15/2021. The patient was successfully extubated yesterday. She continues on DVT and GI prophylaxis. NG tube remains in place. She is on nasal O2 at 2 L. The patient has been getting daily hemodialysis. She is making some urine. Norepinephrine has been weaned off. The patient's on lactated Ringer's at 10 mL an hour. We started TPN at 50 mL an hour. Microbiology is negative. The patient remains on Zosyn. We will continue to follow make recommendations where appropriate. Prognosis is certainly guarded. Time with Patient: Greater than 30
--- NOTE | 2021-12-15 11:05 | P.PN ---
Subjective Patient is seen for follow-up for acute kidney injury. She has underlying chronic kidney disease NKF stage IV with baseline creatinine about 2-2.5 mg/dL. Patient also has a history of cardiomyopathy with ejection fraction 40-45%. Patient was admitted to the hospital with abdominal pain and incarcerated ventral hernia with skin necrosis and bowel necrosis with perforation. Patient is status post explorative laparotomy on 12/09/2021 with excision of umbilicus and hernial sac reduction of ventral hernia. And small bowel resection. Postoperatively patient was hypotensive requiring levo fed. Her urine output has an minimal since her surgery. Patient was taken back to or yesterday and had further resection of her bowel. Patient was taken back to or for the third time yesterday and had further resection of the bowel and peex-[id number] il eocolonic anastomosis. A wound VAC was placed as well. Currently making urine about 20-60 cc per hour Patient was extubated yesterday. She did get 2 hours of treatment yesterday with ultrafiltration of about 2 L. Patient is seen on hemodialysis again today. She is awake. She is following commands. Patient remains off of levo fed. Objective - Vital Signs Vital signs: Vital Signs Temp 98 F 12/15/21 09:44 Pulse 89 12/15/21 10:00 Resp 16 12/15/21 10:00 BP 126/61 12/15/21 10:00 Pulse Ox 98 12/15/21 10:00 Intake & Output 12/14/21 12/15/21 12/15/21 18:59 06:59 18:59 Intake Total 1114.771 853.848 189 Output Total 425 406 0451 Balance 234.771 18.848 -1761 Weight 148.5 kg 144.7 kg Intake: IV 572 758 189 LR 50 130 30 Lactated Ringers 1,000 ml 350 @ 50 mls/hr IV .Q20H [facility] Rx#:[id number] Mvi, Adult No.4 with Vit 550 150 K 10 ml Trace (Conc-1Ml/ Dose) 1 ml Sodium Chloride 4Meq/ml Vial 48 meq Potassium Acetate 10 meq Magnesium Sulfate gm 0.5 gm Calcium Gluconate 1 gm In Amino Acids 5 %/ Dextrose 20 % 1,000 ml @ 50 mls/hr IV .BY DURATION [facility] Rx#:[id number] Piperacillin-Tazobactam 3 100 .375 gm In Sodium Chloride 0.9% 100 ml @ 25 mls/hr IVPB Q12H [facility] Rx# :[id number] Pressure Bag 72 78 9 Intake, IV Titration 542.771 95.848 Amount Mvi, Adult No.4 with Vit 330 60 K 10 ml Trace (Conc-1Ml/ Dose) 1 ml Sodium Chloride 4Meq/ml Vial 48 meq Potassium Acetate 10 meq Magnesium Sulfate gm 0.5 gm Calcium Gluconate 1 gm In Amino Acids 5 %/ Dextrose 20 % 1,000 ml @ 30 mls/hr IV .Q24H [facility] Rx #:[id number] Norepinephrine 8 mg In 35.848 Sodium Chloride 0.9% 250 ml @ 0.05 MCG/KG/MIN 12. 507 mls/hr IV .[id number] [facility] Rx#:[id number] propofoL 1,000 mg In 212.771 Empty Bag 1 bag @ Titrate IV .Q0M [facility] Rx#: [id number] Hemodialysis 0 Output: Gastric Drainage 0 Drainage 350 295 Abdomen 100 180 Left Lower Abdomen 250 115 Urine 530 540 150 Hemodialysis 1800 Other: Voiding Method Indwelling Catheter Indwelling Catheter Indwelling Catheter # Bowel Movements 1 ABP, PAP, CO, CI - Last Documented Arterial Blood Pressure 136/60 - Exam He shouldn't is awake. She is comfortable. She was extubated yesterday. Patient is following commands. Examination of the heart S1 and S2 Examination lungs bilateral breath sounds are heard Abdomen is soft wound is dressed with wound VAC Examination lower extremities shows 1+ edema [employer] exam, moving all 4 extremities. - Labs CBC & Chem 7: 12/15/21 04:47 12/15/21 04:47 Labs: Abnormal Lab Results - Last 24 Hours (Table) 12/14/21 12/14/21 12/14/21 Range/Units 12:04 14:38 18:17 WBC (3.8-10.6) k/uL RBC (3.80-5.40) m/uL Hgb (11.4-16.0) gm/dL Hct (34.0-46.0) % RDW (11.5-15.5) % Neutrophils # (1.3-7.7) k/uL Lymphocytes # (1.0-4.8) k/uL ABG pH 7.34 L (7.35-7.45) ABG O2 Saturation 97.9 H (94-97) % Sodium (137-145) mmol/L BUN (7-17) mg/dL Creatinine (0.52-1.04) mg/dL Glucose (74-99) mg/dL POC Glucose (mg/dL) 162 H 109 H (75-99) mg/dL Calcium (8.4-10.2) mg/dL Phosphorus (2.5-4.5) mg/dL Alkaline Phosphatase (38-126) U/L Total Protein (6.3-8.2) g/dL Albumin (3.5-5.0) g/dL 12/14/21 12/15/21 12/15/21 Range/Units 23:40 04:47 04:47 WBC 11.1 H (3.8-10.6) k/uL RBC 2.68 L (3.80-5.40) m/uL Hgb 8.1 L (11.4-16.0) gm/dL Hct 26.0 L (34.0-46.0) % RDW 16.6 H (11.5-15.5) % Neutrophils # 9.8 H (1.3-7.7) k/uL Lymphocytes # 0.7 L (1.0-4.8) k/uL ABG pH (7.35-7.45) ABG O2 Saturation (94-97) % Sodium 133 L (137-145) mmol/L BUN 41 H (7-17) mg/dL Creatinine 2.68 H (0.52-1.04) mg/dL Glucose 127 H (74-99) mg/dL POC Glucose (mg/dL) 137 H (75-99) mg/dL Calcium 7.9 L (8.4-10.2) mg/dL Phosphorus 5.2 H (2.5-4.5) mg/dL Alkaline Phosphatase 27 L (38-126) U/L Total Protein 4.8 L (6.3-8.2) g/dL Albumin 2.4 L (3.5-5.0) g/dL 12/15/21 Range/Units 05:47 WBC (3.8-10.6) k/uL RBC (3.80-5.40) m/uL Hgb (11.4-16.0) gm/dL Hct (34.0-46.0) % RDW (11.5-15.5) % Neutrophils # (1.3-7.7) k/uL Lymphocytes # (1.0-4.8) k/uL ABG pH (7.35-7.45) ABG O2 Saturation (94-97) % Sodium (137-145) mmol/L BUN (7-17) mg/dL Creatinine (0.52-1.04) mg/dL Glucose (74-99) mg/dL POC Glucose (mg/dL) 132 H (75-99) mg/dL Calcium (8.4-10.2) mg/dL Phosphorus (2.5-4.5) mg/dL Alkaline Phosphatase (38-126) U/L Total Protein (6.3-8.2) g/dL Albumin (3.5-5.0) g/dL Microbiology - Last 24 Hours (Table) 12/12/21 16:37 Blood Culture - Preliminary Blood No Growth after 48 hours Assessment and Plan Assessment: 1. Acute kidney injury ATN currently oliguric secondary to hypotension. Started HD on 12/12/2021 2. Chronic kidney disease stage IV secondary to cardiorenal syndrome creatinine 2-2.5 mg/dL. No evidence of proteinuria on UA No hydronephrosis on CAT scan 3. Strangulated abdominal wall hernia with bowel necrosis status post explorative laparotomy with bowel resection and excision of umbilical hernia sac. Taken back to OR on 12/11/2021 with further resection of the bowel and again on 12/12/2021. Patient had ileocolonic anastomosis and a wound VAC was placed. 4. Chronic A. fib with episodes of tachycardia, currently being treated with IV Lopressor. 5. Cardiomyopathy with ejection fraction of 40-45% previously 6. Hyperkalemia associated with acute kidney injury, improved with dialysis 7 Shock related to intra-abdominal source. Levo fed currently off Plan: Hemodialysis today Continue off of IV fluids Continue to monitor urine output and watch for recovery of renal function Hold dialysis tomorrow
[2021-12-15] MEDS: PANTOPRAZOLE 40 MG/10 ML VIAL IV SCH (11:18)
[2021-12-15] MEDS: HEPARIN SODIUM,PORCINE/PF 5,000 UNIT/0.5 ML SYRINGE SQ SCH ×3 (11:19→23:29)
[2021-12-15] MEDS: NOREPINEPHRINE 8 MG in SODIUM CHLORIDE 0.9% 250 ML IV SCH (11:19)
[2021-12-15 11:44] LABS: Glucose,Whole Blood 137 mg/dL (75-99)
[2021-12-15] MEDS: 1: MVI, ADULT NO.4 WITH VIT K 10 ML, TRACE (CONC-1ML/DOSE) 1 ML, SODIUM CHLORIDE 4MEQ/ML IV SCH ×7 (13:29)
[2021-12-15] MEDS: HYDROmorphone 1 MG/ML 1 ML SYRINGE IVP PRN ×2 (13:32→22:03)
[2021-12-15] MEDS ORDERED: ALBUMIN HUMAN 25% 50 ML in EMPTY BAG 1 BAG IVPB ONE (13:44)
--- NOTE | 2021-12-15 15:26 | PN ---
PROGRESS NOTE Nicole is a 71-year-old lady that is admitted to hospital with gangrenous bowel and underwent surgery 3 times and she has gotten better compared to yesterday. She is extubated. EXAM: Heart rate is 90 beats per minute. Blood pressure is 110/64, respirations 18. Chest exam reveals diminished air entry at the bases. Heart exam reveals first and second heart sounds. No gallop. Irregular rhythm. Abdomen is status post multiple surgeries. Examination of extremities reveals mild edema. Peripheral pulses are palpable. LABS: Labs show a hemoglobin of 8.1, white cell count has come down to 11. Potassium is 4, BUN is 41, creatinine is 2.6. Current medications include: Subcu heparin for DVT prophylaxis, and IV Lopressor. ASSESSMENT: Persistent atrial fibrillation with better controlled ventricular rate. PLAN: I will continue the IV Lopressor until we can give her oral medication. MMODL / IJN: [id number] /
--- NOTE | 2021-12-15 15:49 | P.PN ---
Subjective Progress Note Date: 12/15/21 History of present illness per H&P: Patient is a 71-year-old female with a history of A. fib anticoagulated on Coumadin, history of prior pulmonary embolism and DVT with known MTHFR, systolic congestive heart failure with ejection fraction 45-50% (recovered from 30-35%) and chronic kidney disease stage IV following with nephrology on an outpatient basis who presented for abdominal wall hernia that is no longer reducible. On arrival she was found to be tachycardic. Laboratory analysis showed a white blood cell count of 13.8, creatinine was near her baseline at 2.13 consistent with her chronic kidney disease stage IV, glucose was mildly elevated at 153 on the laboratory analysis is otherwise unremarkable. She underwent a CT abdomen and pelvis which demonstrated a large lower anterior abdominal wall ventral hernia containing multiple bowel loops without signs of obstruction. In the emergency department she was started on Zosyn, IV fluids, and pain medications. She was placed in observation for further surgical evaluation. Patient seen adnexamined at bedside. Has abdominal wall hernia that was reproducible until yesterday. Now having pain at the hernia site that wraps to her back. Had a bowel movement where she had to bare down and then noticed that it was no longer reducible. + nuasea with vomiting X 1. No dificulty with urination. + Shortness of breath after this incident. She uses a walker at baseline. She is independent with bathing and dressing as well as meal prep. She does have assistance with cleaning. She is able to walk for steroids at this time with physical therapy, but has been unable to leave her house. She is unable to walk a full flight of stairs. She denies any recent episodes of chest pain or syncope. Status post exploratory laparotomy, excision of umbilicus and hernia sac, small bowel resection, reduction of ventral hernia and wound VAC placement on December 09 Interval history: 12/12 Patient was seen and examined at the bedside. Still sedated and intubated. Patient was taken to or yesterday she had 220 cm necrotic small bowel removed by general surgery with wound VAC placement. Since yesterday she has required dialysis catheter placement and has started hemodialysis this morning. Chest x-ray shows persistent bilateral infiltrates, laboratory studies show a significant leukocytosis but her pressor requirement is starting to come down, mean arterial pressures are adequate. 12/13 patient was examined at bedside. She is still intubated. She was taken to or yesterday for third expiratory laparotomy she had enny-wy-wemt ileocolonic anastomosis with closure of mesenteric defect. 12/14 patient was examined at the bedside. Patient still intubated. She is currently off Levophed. Still oliguric urine output is 200 over the past 24 hours. Critical care team planning possible extubation today. 12/15 The patient was successfully extubated yesterday. NG tube remains in place. She is on nasal O2 at 2 L. she had hemodialysis yesterday and today. She is making some urine. Norepinephrine has been weaned off. The patient's on lactated Ringer's at 10 mL an hour. We started TPN at 50 mL an hour. Microbiology is negative. She is awake alert oriented to her name otherwise she seems to be very weak and confused. Objective - Vital Signs Vital signs: Vital Signs Temp 98.4 F 12/15/21 12:00 Pulse 85 12/15/21 15:00 Resp 16 12/15/21 15:00 BP 123/95 12/15/21 15:00 Pulse Ox 97 12/15/21 15:00 Intake & Output 12/14/21 12/15/21 12/15/21 18:59 06:59 18:59 Intake Total 1114.771 853.848 504 Output Total 995 616 9513 Balance 234.771 18.848 -3711 Weight 148.5 kg 144.7 kg Intake: IV 572 758 504 LR 50 130 80 Lactated Ringers 1,000 ml 350 @ 50 mls/hr IV .Q20H [facility] Rx#:[id number] Mvi, Adult No.4 with Vit 550 400 K 10 ml Trace (Conc-1Ml/ Dose) 1 ml Sodium Chloride 4Meq/ml Vial 48 meq Potassium Acetate 10 meq Magnesium Sulfate gm 0.5 gm Calcium Gluconate 1 gm In Amino Acids 5 %/ Dextrose 20 % 1,000 ml @ 50 mls/hr IV .BY DURATION [facility] Rx#:[id number] Piperacillin-Tazobactam 3 100 .375 gm In Sodium Chloride 0.9% 100 ml @ 25 mls/hr IVPB Q12H [facility] Rx# :[id number] Pressure Bag 72 78 24 Intake, IV Titration 542.771 95.848 Amount Mvi, Adult No.4 with Vit 330 60 K 10 ml Trace (Conc-1Ml/ Dose) 1 ml Sodium Chloride 4Meq/ml Vial 48 meq Potassium Acetate 10 meq Magnesium Sulfate gm 0.5 gm Calcium Gluconate 1 gm In Amino Acids 5 %/ Dextrose 20 % 1,000 ml @ 30 mls/hr IV .Q24H [facility] Rx #:[id number] Norepinephrine 8 mg In 35.848 Sodium Chloride 0.9% 250 ml @ 0.05 MCG/KG/MIN 12. 507 mls/hr IV .[id number] [facility] Rx#:[id number] propofoL 1,000 mg In 212.771 Empty Bag 1 bag @ Titrate IV .Q0M [facility] Rx#: [id number] Hemodialysis 0 Output: Gastric Drainage 0 Drainage 350 295 100 Abdomen 100 180 100 Left Lower Abdomen 250 115 Urine 530 540 315 Hemodialysis 3800 Other: Voiding Method Indwelling Catheter Indwelling Catheter Indwelling Catheter # Bowel Movements 1 ABP, PAP, CO, CI - Last Documented Arterial Blood Pressure 136/60 - Exam General: Awake but confused Derm: warm, dry Head: atraumatic, normocephalic, symmetric Eyes: EOMI, no lid lag, anicteric sclera Mouth: no lip lesion, mucus membranes moist Cardiovascular: Irregular regular rhythm. A. fib Lungs: CTA bilateral, no rhonchi, no rales , no accessory muscle use Abdominal: Soft without bowel sounds. [address] Abdomen is open Ext: no gross muscle atrophy, no edema, no contractures Neuro: Unable to assess secondary to confusion - Labs CBC & Chem 7: 12/15/21 04:47 12/15/21 04:47 Labs: Abnormal Lab Results - Last 24 Hours (Table) 12/14/21 12/14/21 12/15/21 Range/Units 18:17 23:40 04:47 WBC (3.8-10.6) k/uL RBC (3.80-5.40) m/uL Hgb (11.4-16.0) gm/dL Hct (34.0-46.0) % RDW (11.5-15.5) % Neutrophils # (1.3-7.7) k/uL Lymphocytes # (1.0-4.8) k/uL Sodium 133 L (137-145) mmol/L BUN 41 H (7-17) mg/dL Creatinine 2.68 H (0.52-1.04) mg/dL Glucose 127 H (74-99) mg/dL POC Glucose (mg/dL) 109 H 137 H (75-99) mg/dL Calcium 7.9 L (8.4-10.2) mg/dL Phosphorus 5.2 H (2.5-4.5) mg/dL Alkaline Phosphatase 27 L (38-126) U/L Total Protein 4.8 L (6.3-8.2) g/dL Albumin 2.4 L (3.5-5.0) g/dL 12/15/21 12/15/21 12/15/21 Range/Units 04:47 05:47 11:43 WBC 11.1 H (3.8-10.6) k/uL RBC 2.68 L (3.80-5.40) m/uL Hgb 8.1 L (11.4-16.0) gm/dL Hct 26.0 L (34.0-46.0) % RDW 16.6 H (11.5-15.5) % Neutrophils # 9.8 H (1.3-7.7) k/uL Lymphocytes # 0.7 L (1.0-4.8) k/uL Sodium (137-145) mmol/L BUN (7-17) mg/dL Creatinine (0.52-1.04) mg/dL Glucose (74-99) mg/dL POC Glucose (mg/dL) 132 H 137 H (75-99) mg/dL Calcium (8.4-10.2) mg/dL Phosphorus (2.5-4.5) mg/dL Alkaline Phosphatase (38-126) U/L Total Protein (6.3-8.2) g/dL Albumin (3.5-5.0) g/dL Microbiology - Last 24 Hours (Table) 12/12/21 16:37 Blood Culture - Preliminary Blood No Growth after 48 hours Assessment and Plan Assessment: Assessment and plan: Septic Shock from Small Bowel Necrosis and Perforation Strangulated abdominal wall hernia to the left of the umbilicus containing loops of bowel -December 09 status post exploratory laparotomy, excision of umbilicus hernia sac, small bowel resection, reduction of ventral hernia, and wound VAC placement. -December 11 Second Look laparotomy with abdominal exploration, resection of 220 cm necrotic small bowel segment, right hemicolectomy, temporary abdominal closure with Apthera VAC. -December 12 Third look exploratory laparotomy with [id number] antimesenteric ileocolonic anastomosis with closure of mesenteric defect, fascial block, primary fascial closure, application of negative pressure wound VAC dressing over 20 x 20 x 5 cm midline surgical soft tissue wound. -Infectious disease consulted December 11 -levophed weaned off -Extubated December 14 -Hold Coumadin until clered by surgery -IV Zosyn per infectious disease Acute ventilatory dependent respiratory failure status post extubation December 14 Atrial fibrillation with RVR -anticoagulated with Coumadin at baseline -IV Lopressor for rate control per cardiology Cardiomyopathy with ejection fraction 45-50% -Not chronically on CHARLES inhibitor, resume IV metoprolol -Continue with tele -cardiology following Acute kidney injury possibly secondary to ATN -Status post hemodialysis December 11 and -Nephrology managing Chronic kidney disease stage IV Hypercoaguability with MTHFR History of DVT and pulmonary embolism -on heparin TID for DVT PPx Severe obesity with BMI 52.1 outpt weight loss referral History of osteoarthritis. History of uterine cancer. History of gout. DVT prophylaxis: heparin TID Condition is critical.
--- NOTE | 2021-12-15 16:34 | P.PN ---
Subjective Progress Note Date: 12/15/21 Patient seen and examined at bedside. She has been extubated and is off of pressors and off of sedation. She did have a bowel movement overnight. She is answering questions appropriately. Objective - Vital Signs Vital signs: Vital Signs Temp 98.4 F 12/15/21 12:00 Pulse 85 12/15/21 15:00 Resp 16 12/15/21 15:00 BP 123/95 12/15/21 15:00 Pulse Ox 97 12/15/21 15:00 Intake & Output 12/14/21 12/15/21 12/15/21 18:59 06:59 18:59 Intake Total 1114.771 853.848 567 Output Total 770 335 8513 Balance 234.771 18.848 -3748 Weight 148.5 kg 144.7 kg Intake: IV 572 758 567 LR 50 130 90 Lactated Ringers 1,000 ml 350 @ 50 mls/hr IV .Q20H [facility] Rx#:[id number] Mvi, Adult No.4 with Vit 550 450 K 10 ml Trace (Conc-1Ml/ Dose) 1 ml Sodium Chloride 4Meq/ml Vial 48 meq Potassium Acetate 10 meq Magnesium Sulfate gm 0.5 gm Calcium Gluconate 1 gm In Amino Acids 5 %/ Dextrose 20 % 1,000 ml @ 50 mls/hr IV .BY DURATION [facility] Rx#:[id number] Piperacillin-Tazobactam 3 100 .375 gm In Sodium Chloride 0.9% 100 ml @ 25 mls/hr IVPB Q12H [facility] Rx# :[id number] Pressure Bag 72 78 27 Intake, IV Titration 542.771 95.848 Amount Mvi, Adult No.4 with Vit 330 60 K 10 ml Trace (Conc-1Ml/ Dose) 1 ml Sodium Chloride 4Meq/ml Vial 48 meq Potassium Acetate 10 meq Magnesium Sulfate gm 0.5 gm Calcium Gluconate 1 gm In Amino Acids 5 %/ Dextrose 20 % 1,000 ml @ 30 mls/hr IV .Q24H [facility] Rx #:[id number] Norepinephrine 8 mg In 35.848 Sodium Chloride 0.9% 250 ml @ 0.05 MCG/KG/MIN 12. 507 mls/hr IV .[id number] [facility] Rx#:[id number] propofoL 1,000 mg In 212.771 Empty Bag 1 bag @ Titrate IV .Q0M [facility] Rx#: [id number] Hemodialysis 0 Output: Gastric Drainage 0 Drainage 350 295 160 Abdomen 100 180 100 Left Lower Abdomen 250 115 60 Urine 530 540 355 Hemodialysis 3800 Other: Voiding Method Indwelling Catheter Indwelling Catheter Indwelling Catheter # Bowel Movements 1 ABP, PAP, CO, CI - Last Documented Arterial Blood Pressure 136/60 - Constitutional General appearance: Present: cooperative - Gastrointestinal Gastrointestinal Comment(s): Soft, obese, nontender, nondistended, no rebound, no guarding, midline incision with a wound VAC in place - Labs CBC & Chem 7: 12/15/21 04:47 12/15/21 04:47 Labs: Abnormal Lab Results - Last 24 Hours (Table) 12/14/21 12/14/21 12/15/21 Range/Units 18:17 23:40 04:47 WBC (3.8-10.6) k/uL RBC (3.80-5.40) m/uL Hgb (11.4-16.0) gm/dL Hct (34.0-46.0) % RDW (11.5-15.5) % Neutrophils # (1.3-7.7) k/uL Lymphocytes # (1.0-4.8) k/uL Sodium 133 L (137-145) mmol/L BUN 41 H (7-17) mg/dL Creatinine 2.68 H (0.52-1.04) mg/dL Glucose 127 H (74-99) mg/dL POC Glucose (mg/dL) 109 H 137 H (75-99) mg/dL Calcium 7.9 L (8.4-10.2) mg/dL Phosphorus 5.2 H (2.5-4.5) mg/dL Alkaline Phosphatase 27 L (38-126) U/L Total Protein 4.8 L (6.3-8.2) g/dL Albumin 2.4 L (3.5-5.0) g/dL 12/15/21 12/15/21 12/15/21 Range/Units 04:47 05:47 11:43 WBC 11.1 H (3.8-10.6) k/uL RBC 2.68 L (3.80-5.40) m/uL Hgb 8.1 L (11.4-16.0) gm/dL Hct 26.0 L (34.0-46.0) % RDW 16.6 H (11.5-15.5) % Neutrophils # 9.8 H (1.3-7.7) k/uL Lymphocytes # 0.7 L (1.0-4.8) k/uL Sodium (137-145) mmol/L BUN (7-17) mg/dL Creatinine (0.52-1.04) mg/dL Glucose (74-99) mg/dL POC Glucose (mg/dL) 132 H 137 H (75-99) mg/dL Calcium (8.4-10.2) mg/dL Phosphorus (2.5-4.5) mg/dL Alkaline Phosphatase (38-126) U/L Total Protein (6.3-8.2) g/dL Albumin (3.5-5.0) g/dL Microbiology - Last 24 Hours (Table) 12/12/21 16:37 Blood Culture - Preliminary Blood No Growth after 48 hours Assessment and Plan Plan: 71-year-old female that presented with a strangulated ventral hernia with bowel ischemia and perforation. She initially underwent an exploratory laparotomy and small bowel resection with discontinuity and Apthera placement with plan for second look for further evaluation of any demarcation of the bowel secondary to ischemic changes. Second look exploratory laparotomy required further bowel resection. Third look was also performed in which patient did have an ileocolic anastomosis created. Wound VAC was applied over the wound. Patient has officially been weaned off of pressors and propofol. She is extu bated. She did have a bowel movement overnight. Wound VAC dressing was changed at bedside with nursing assistance. Wound with appropriate granulation tissue and fascia is intact. Based on increased bowel function, plan is for removal of nasogastric tube. There is only been 50 mL of output over the past 48 hours. We will obtain a speech evaluation with a swallow evaluation prior to beginning any diet.
[2021-12-15 17:43] LABS: Glucose,Whole Blood 120 mg/dL (75-99)
[2021-12-15] MEDS ORDERED: ARTIFICIAL TEARS-HYPROMELLOSE DROPS 15 ML BTL BOTH EYES PRN (20:35)
--- NOTE | 2021-12-15 21:35 | P.PN ---
Subjective Progress Note Date: 12/08/21 Principal diagnosis: Abdominal sepsis Patient is a 71 year female admitted to the hospital with abdominal pain has been diagnosis stimulated went hernia with ischemic bowel and perforation in this patient who is status post initial surgery with reduction of hernia and resection of the ischemic portion of small bowel patient was taken back to the OR on 12/12/2021 and the patient is status post [id number] antimesenteric ileocolonic anastomosis with closure of mesenteric defect facial block and application of wound VAC. On today's evaluation that is 12/15/2021, the patient continues to be afebrile, the patient is hemodynamically stable not requiring pressor support, the patient has been extubated currently on nasal Oxygen Patient Is Slightly Lethargic and Was Not Able to Provide Any History No Vomiting and Diarrhea Reported by Nursing Staff Objective - Vital Signs Vital signs: Vital Signs Temp 98.4 F 12/15/21 12:00 Pulse 102 H 12/15/21 14:00 Resp 16 12/15/21 14:00 BP 120/56 12/15/21 14:36 Pulse Ox 99 12/15/21 14:00 Intake & Output 12/14/21 12/15/21 12/15/21 18:59 06:59 18:59 Intake Total 1114.771 853.848 378 Output Total 884 325 4952 Balance 234.771 18.848 -3812 Weight 148.5 kg 144.7 kg Intake: IV 572 758 378 LR 50 130 60 Lactated Ringers 1,000 ml 350 @ 50 mls/hr IV .Q20H [facility] Rx#:[id number] [facility], Adult No.4 with Vit 550 300 K 10 ml Trace (Conc-1Ml/ Dose) 1 ml Sodium Chloride 4Meq/ml Vial 48 meq Potassium Acetate 10 meq Magnesium Sulfate gm 0.5 gm Calcium Gluconate 1 gm In Amino Acids 5 %/ Dextrose 20 % 1,000 ml @ 50 mls/hr IV .BY DURATION [facility] Rx#:[id number] Piperacillin-Tazobactam 3 100 .375 gm In Sodium Chloride 0.9% 100 ml @ 25 mls/hr IVPB Q12H [facility] Rx# :[id number] Pressure Bag 72 78 18 Intake, IV Titration 542.771 95.848 Amount Mvi, Adult No.4 with Vit 330 60 K 10 ml Trace (Conc-1Ml/ Dose) 1 ml Sodium Chloride 4Meq/ml Vial 48 meq Potassium Acetate 10 meq Magnesium Sulfate gm 0.5 gm Calcium Gluconate 1 gm In Amino Acids 5 %/ Dextrose 20 % 1,000 ml @ 30 mls/hr IV .Q24H [facility] Rx #:[id number] Norepinephrine 8 mg In 35.848 Sodium Chloride 0.9% 250 ml @ 0.05 MCG/KG/MIN 12. 507 mls/hr IV .[id number] [facility] Rx#:[id number] propofoL 1,000 mg In 212.771 Empty Bag 1 bag @ Titrate IV .Q0M [facility] Rx#: [id number] Hemodialysis 0 Output: Gastric Drainage 0 Drainage 350 295 100 Abdomen 100 180 100 Left Lower Abdomen 250 115 Urine 530 540 290 Hemodialysis 3800 Other: Voiding Method Indwelling Catheter Indwelling Catheter Indwelling Catheter # Bowel Movements 1 ABP, PAP, CO, CI - Last Documented Arterial Blood Pressure 136/60 - Exam GENERAL DESCRIPTION: An elderly female lying in bed RESPIRATORY SYSTEM: Unlabored breathing , decreased breath sounds at bases HEART: S1 S2 regular rate and rhythm , ABDOMEN: Soft , midline abdominal wound is covered with a wound VAC EXTREMITIES: No edema feet - Labs CBC & Chem 7: 12/15/21 04:47 12/15/21 04:47 Labs: Abnormal Lab Results - Last 24 Hours (Table) 12/14/21 12/14/21 12/15/21 Range/Units 18:17 23:40 04:47 WBC (3.8-10.6) k/uL RBC (3.80-5.40) m/uL Hgb (11.4-16.0) gm/dL Hct (34.0-46.0) % RDW (11.5-15.5) % Neutrophils # (1.3-7.7) k/uL Lymphocytes # (1.0-4.8) k/uL Sodium 133 L (137-145) mmol/L BUN 41 H (7-17) mg/dL Creatinine 2.68 H (0.52-1.04) mg/dL Glucose 127 H (74-99) mg/dL POC Glucose (mg/dL) 109 H 137 H (75-99) mg/dL Calcium 7.9 L (8.4-10.2) mg/dL Phosphorus 5.2 H (2.5-4.5) mg/dL Alkaline Phosphatase 27 L (38-126) U/L Total Protein 4.8 L (6.3-8.2) g/dL Albumin 2.4 L (3.5-5.0) g/dL 12/15/21 12/15/21 12/15/21 Range/Units 04:47 05:47 11:43 WBC 11.1 H (3.8-10.6) k/uL RBC 2.68 L (3.80-5.40) m/uL Hgb 8.1 L (11.4-16.0) gm/dL Hct 26.0 L (34.0-46.0) % RDW 16.6 H (11.5-15.5) % Neutrophils # 9.8 H (1.3-7.7) k/uL Lymphocytes # 0.7 L (1.0-4.8) k/uL Sodium (137-145) mmol/L BUN (7-17) mg/dL Creatinine (0.52-1.04) mg/dL Glucose (74-99) mg/dL POC Glucose (mg/dL) 132 H 137 H (75-99) mg/dL Calcium (8.4-10.2) mg/dL Phosphorus (2.5-4.5) mg/dL Alkaline Phosphatase (38-126) U/L Total Protein (6.3-8.2) g/dL Albumin (3.5-5.0) g/dL Microbiology - Last 24 Hours (Table) 12/12/21 16:37 Blood Culture - Preliminary Blood No Growth after 48 hours Assessment and Plan (1) Sepsis Current Visit: Yes Status: Acute Code(s): A41.9 - SEPSIS, UNSPECIFIED ORGANISM SNOMED Code(s): 39931913 Plan: 1patient presented to hospital with abdominal pain and did have evidence of elevated white count tachycardia meeting criteria for sepsis sources incarcerated abdominal hernia with perforated small bowel status post resection and need to cover for the enteric gram-negative with a likely pathogen. 2patient is afebrile white count is down to 11,000 and the patient has been extubated, patient to continue with Zosyn 3.375 g every 8 hour and monitor clinical course closely Time with Patient: Less than 30
[2021-12-15 23:26] LABS: Glucose,Whole Blood 145 mg/dL (75-99)
[2021-12-16] MEDS: NOREPINEPHRINE 8 MG in SODIUM CHLORIDE 0.9% 250 ML IV SCH (03:08)
[2021-12-16 05:46] LABS: Anisocytosis Slight; Basophils % (A) 0 %; Eosinophils % (A) 0 %; HCT 25.4 % (34.0-46.0); HGB 7.9 gm/dL (11.4-16.0); Hypochromasia Marked; Lymphocytes # (A) 0.7 k/uL (1.0-4.8); Lymphocytes % (A) 8 %; MCH 30.2 pg (25.0-35.0); MCHC 31.1 g/dL (31.0-37.0); Macrocytosis Slight; Monocytes # (A) 0.4 k/uL (0-1.0); Monocytes % (A) 5 %; Neutrophils # (A) 6.9 k/uL (1.3-7.7); Neutrophils % (A) 85 %; Platelet Count 212 k/uL (150-450); RBC 2.62 m/uL (3.80-5.40); RDW 16.7 % (11.5-15.5); WBC 8.2 k/uL (3.8-10.6)
[2021-12-16 05:49] LABS: Albumin 2.5 g/dL (3.5-5.0); Phosphorus 4.1 mg/dL (2.5-4.5); Potassium 3.3 mmol/L (3.5-5.1); Total Bilirubin 0.8 mg/dL (0.2-1.3); Total Protein 4.9 g/dL (6.3-8.2)
[2021-12-16 06:01] LABS: Glucose,Whole Blood 138 mg/dL (75-99)
[2021-12-16] MEDS: HYDROCORTISONE SUCCINATE 100 MG/2 ML VIAL IV SCH (06:05)
[2021-12-16] MEDS: INSULIN ASPART (NovoLOG) 100 UNIT/ML VIAL SQ SCH ×3 (06:06→17:31)
[2021-12-16] MEDS: HYDROmorphone 1 MG/ML 1 ML SYRINGE IVP PRN (06:06)
[2021-12-16] MEDS: PIPERACILLIN-TAZOBACTAM 3.375 GM in SODIUM CHLORIDE 0.9% 100 ML IVPB SCH ×2 (06:07→17:21)
[2021-12-16] MEDS: POTASSIUM CHLORIDE 20 MEQ in WATER FOR INJECTION 1 100ML.BAG IVPB SCH ×2 (07:06→09:30)
[2021-12-16] MEDS: HEPARIN SODIUM,PORCINE/PF 5,000 UNIT/0.5 ML SYRINGE SQ SCH ×2 (08:08→17:21)
[2021-12-16] MEDS: PANTOPRAZOLE 40 MG/10 ML VIAL IV SCH (08:08)
[2021-12-16] MEDS: 1: MVI, ADULT NO.4 WITH VIT K 10 ML, TRACE (CONC-1ML/DOSE) 1 ML, SODIUM CHLORIDE 4MEQ/ML IV SCH ×7 (08:34)
--- NOTE | 2021-12-16 09:20 | P.PN ---
Subjective Progress Note Date: 12/16/21 Patient seen and examined at bedside. No acute changes overnight. Responding to questions. Denies any significant pain. Objective - Vital Signs Vital signs: Vital Signs Temp 97.7 F 12/16/21 08:00 Pulse 78 12/16/21 08:00 Resp 16 12/16/21 08:00 BP 154/76 12/16/21 08:00 Pulse Ox 98 12/16/21 08:00 Intake & Output 12/15/21 12/16/21 12/16/21 17:59 06:59 18:59 Intake Total 60 Output Total 35 Balance 25 Weight Intake: IV 60 LR 10 Mvi, Adult No.4 with Vit 50 K 10 ml Trace (Conc-1Ml/ Dose) 1 ml Sodium Chloride 4Meq/ml Vial 48 meq Potassium Acetate 10 meq Magnesium Sulfate gm 0.5 gm Calcium Gluconate 1 gm In Amino Acids 5 %/ Dextrose 20 % 1,000 ml @ 50 mls/hr IV .BY DURATION [facility] Rx#:[id number] Piperacillin-Tazobactam 3 .375 gm In Sodium Chloride 0.9% 100 ml @ 25 mls/hr IVPB Q12H [facility] Rx# :[id number] Pressure Bag Intake, IV Titration Amount Sodium Chloride 4Meq/ml Vial 48 meq Potassium Acetate 10 meq Magnesium Sulfate gm 0.5 gm Calcium Gluconate 1 gm In Amino Acids 5 %/Dextrose 20 % 1 ,000 ml @ 50 mls/hr IV . BY DURATION [facility] Rx#: [id number] Hemodialysis Output: Drainage Abdomen Left Lower Abdomen Urine 35 Hemodialysis Other: Voiding Method Indwelling Catheter ABP, PAP, CO, CI - Last Documented Arterial Blood Pressure 136/60 - Constitutional General appearance: Present: no acute distress - Gastrointestinal Gastrointestinal Comment(s): Soft, nontender, obese, nondistended, wound VAC in place with appropriate seal, JADE drain with serosanguineous output - Musculoskeletal Musculoskeletal: Present: generalized weakness - Labs CBC & Chem 7: 12/16/21 05:18 12/16/21 05:18 Labs: Abnormal Lab Results - Last 24 Hours (Table) 12/15/21 12/15/21 12/15/21 Range/Units 11:43 17:42 23:24 RBC (3.80-5.40) m/uL Hgb (11.4-16.0) gm/dL Hct (34.0-46.0) % RDW (11.5-15.5) % Lymphocytes # (1.0-4.8) k/uL Sodium (137-145) mmol/L Potassium (3.5-5.1) mmol/L BUN (7-17) mg/dL Creatinine (0.52-1.04) mg/dL Glucose (74-99) mg/dL POC Glucose (mg/dL) 137 H 120 H 145 H (75-99) mg/dL Calcium (8.4-10.2) mg/dL AST (14-36) U/L Alkaline Phosphatase (38-126) U/L Total Protein (6.3-8.2) g/dL Albumin (3.5-5.0) g/dL 12/16/21 12/16/21 12/16/21 Range/Units 05:18 05:18 05:59 RBC 2.62 L (3.80-5.40) m/uL Hgb 7.9 L (11.4-16.0) gm/dL Hct 25.4 L (34.0-46.0) % RDW 16.7 H (11.5-15.5) % Lymphocytes # 0.7 L (1.0-4.8) k/uL Sodium 135 L (137-145) mmol/L Potassium 3.3 L (3.5-5.1) mmol/L BUN 41 H (7-17) mg/dL Creatinine 2.05 H (0.52-1.04) mg/dL Glucose 128 H (74-99) mg/dL POC Glucose (mg/dL) 138 H (75-99) mg/dL Calcium 8.0 L (8.4-10.2) mg/dL AST 68 H (14-36) U/L Alkaline Phosphatase 27 L (38-126) U/L Total Protein 4.9 L (6.3-8.2) g/dL Albumin 2.5 L (3.5-5.0) g/dL Microbiology - Last 24 Hours (Table) 12/12/21 16:37 Blood Culture - Preliminary Blood No Growth after 72 hours Assessment and Plan Plan: 71-year-old female that presented with a strangulated ventral hernia with bowel ischemia and perforation. She initially underwent an exploratory laparotomy and small bowel resection with discontinuity and Apthera placement with plan for second look for further evaluation of any demarcation of the bowel secondary to ischemic changes. Second look exploratory laparotomy required further bowel resection. Third look was also performed in which patient did have an ileocolic anastomosis created. Wound VAC was applied over the wound. Patient has officially been weaned off of pressors and propofol. She is ex tubated. Wound VAC dressing was changed yesterday. Serous output from JADE drain. Speech therapy has been consulted for swallow evaluation prior to advancing diet. Continue medical and intensive care.
--- NOTE | 2021-12-16 09:34 | P.PN ---
Subjective Progress Note Date: 12/16/21 Principal diagnosis: Ventilator management. Pulmonary consult dated 12/10/2021. 71-year-old female seen in room 250. The patient is postop day #1, status post exploratory laparotomy, excision of umbilicus and hernia sac, small bowel resection, reduction of ventral hernia, and wound VAC placement. We are seeing the patient for the first time in the intensive care unit. She remains on the ventilator. She apparently is being taken back to the operating room either later today or tomorrow. She is on volume assist control, rate 24, tidal volume 350, FiO2 40%, and PEEP of 5. Blood gases show pO2 83, CO2 37, and pH is 7.44. The patient is on propofol at 20 mcg/kg/m, saline at 50 mL an hour, and norepinephrine at 0.07 mcg/kg/m, which is roughly 10 mcg/m. The patient was initially seen in the emergency department on December 09, with severe abdominal pain. White count 16, hemoglobin 11.5, hematocrit 37.6, platelet count 323,000. PT 20.6, INR 2.1. Sodium 134, potassium 4.7, chlorides 106, CO2 24, anion gap 4, BUN 38, creatinine 2.26. Albumin is 2.4. Urine was negative. Chest x-ray showed diffuse bilateral infiltrates with small effusions. Progress note dated 12/11/2021. 71-year-old female, again seen in room 250. She is postop day #2, status post exploratory laparotomy, excision of umbilicus and hernia sac, small bowel resection, reduction of ventral hernia, and wound VAC placement. The patient apparently is going back to the operating room later today. The patient remains on the ventilator. She is on volume assist control, rate 24, tidal volume 350, FiO2 30%, PEEP of 5. Arterial blood gases show pO2 108, pCO2 35, and pH is 7.38. The patient is on lactated Ringer's at 100 mL an hour, propofol at 20 mcg/kg/m, and norepinephrine, at 35 mcg/m. I've asked the nurse to get a stat cortisol level, and apparently she was given Lasix 80 mg by nephrology earlier this morning, and has had less than 10 mL of urine output. White count 18.5, hemoglobin 12.9, hematocrit 43.5, platelet count 393,000. Sodium 133, potassium I.4, chlorides 106, CO2 19, anion gap 8, BUN 42, and creatinine 3.27. Microbiologic studies are thus far negative. Chest x-ray shows diffuse bilateral airspace disease. Endotracheal tube and NG tube are noted. Progress note dated 12/12/2021. 71-year-old female, again seen in room 250. She's postop day #3, status post ex ploratory laparotomy, excision of umbilicus and hernia sac, small bowel resection, reduction of ventral hernia, and wound VAC placement. The patient went back to the operating room yesterday, and had 220 cm of small bowel removed. A hemodialysis catheter was placed. She will have hemodialysis today. Later today, the patient will go back to the operating room. She has a wound VAC in place, and a Gaetano-Ojeda drain as well. The patient remains on the ventilator. She is on the volume assist control mode, rate 24, tidal volume 350, FiO2 30%, and PEEP of 5. Arterial blood gases show pO2 of 78, pCO2 35, and a pH is 7.35. The patient is on norepinephrine, at 30 mcg/m, lactated Ringer's at 100 mL an hour, and propofol at 20 mcg/kg/m. White count 21.9, hemoglobin 11.4, hematocrit 37, and platelet count 328,000. Sodium 133, potassium 5.2, chlorides 106, CO2 17, anion gap 10, BUN 50, and creatinine 4.13. Microbiologic studies are thus far negative. The patient's chest x-ray shows diffuse bilateral infiltrates. Stat cortisol level was 38. Progress note dated 12/13/2021. 71-year-old female again seen in room 250. She's postop day #4, status post exploratory laparotomy, excision of umbilicus and hernia sac, small bowel resection, reduction of ventral hernia, and wound VAC placement. She's been back to the operating room now 2 additional times. Initially, she had additiona l small bowel resection. Yesterday, she had hemodialysis, and she'll have hemodialysis again today. She went back to the operating room on December 12, and had a exploratory laparotomy with [id number] anterior mesenteric ileocolonic anastomosis with closure of mesenteric defect, fascial block, primary fascial closure, and application of a negative pressure wound VAC dressing. The patient remains on the mechanical ventilator. She is on volume assist control, rate 24, tidal volume 350, FiO2 30%, and PEEP of 5. Blood gases show pO2 63, pCO2 37, and pH is 7.36. She is on propofol at 25 mcg/kg/m, lactated Ringer's at 100 mL an hour, and norepinephrine at 0.02 mcg/kg/m. Today we'll start TPN. We'll attempt a daily interruption of sedation after hemodialysis today. I've asked the nurse to assess surgeon whether or not there is any plans for follow-up surgery. White count 17.3, hemoglobin 9.3, hematocrit 31, platelet count 244,000. Sodium 135, potassium 4.6, chlorides 109, CO2 20, anion gap 6, BUN 43, with creatinine 3.62. Calcium is 7.7. Microbiologic studies are thus far negative. Chest x-ray is a bit improved. Progress note dated 12/14/2021. 71-year-old female seen in room 250. She's postop day #5, status post exploratory laparotomy, excision of umbilicus, and hernia sac, small bowel resection, reduction of ventral hernia, and wound VAC placement. She has been back to the operating room 2 times subsequent to that, first for small bowel resection, and second, for a ileocolonic anastomosis. The patient has had hemodialysis now daily for 3 days. Microbiology is negative. The patient remains on Zosyn. We will attempt a daily interruption of sedation today, and a spontaneous breathing trial. The patient will get Lasix 60 mg IV push today. Endotracheal tube and NG tube are noted. Current vent settings are volume assist control, rate 24, tidal volume 350, FiO2 30%, PEEP of 5. Blood gases show pO2 of 92, pCO2 39, and pH is 7.39. The patient's on propofol at 40 mcg/kg/m, lactated Ringer's at 50 mL an hour, TPN at 30 mL an hour, and norepinephrine is currently on hold. Sodium 135, potassium 4.1, chlorides 107, CO2 22, BUN 39, creatinine 3.03. There was no CBC today. Albumin is 2.2. Chest x-ray is consistent with diffuse bilateral infiltrates, which could relate to fluid overload and/or pneumonia. Progress note dated 12/15/2021. 71-year-old female, again seen in room 250. She's postop day #6, status post exploratory laparotomy, excision of umbilicus and hernia sac, small bowel resection, reduction of ventral hernia, and wound VAC placement. The patient did go back to the operating room twice, first for small bowel resection, and second for ileocolonic anastomosis. The patient had hemodialysis yesterday, and 1.5 L was removed. The plan is to do hemodialysis today, with 1-2 L being removed. Microbiologic studies are negative. The patient was successfully extubated on December 14. She is lethargic and somnolent. She does arouse. She remains on Zosyn. NG tube is noted in place. Nasal O2 is at 2 L/m. She is getting lactated Ringer's at 10 mL an hour, and TPN at 50 mL an hour. White count 11.1, hemoglobin 8.1, hematocrit 26, platelet count 193,000. Sodium 133, potassium 4, chlorides 104, CO2 23, BUN 41, and creatinine 2.68. Albumin is 2.4. Chest x-ray shows mild fluid overload/pulmonary vascular congestion. Endotracheal tube has been removed. Progress note dated 12/16/2021. 71-year-old female, again seen in room 250. She's postop day #6, status post exploratory laparotomy, excision of umbilicus and hernia sac, small bowel resection, reduction of ventral hernia, and wound VAC placement. The patient went back to the operating room 2 separate occasions, subsequently, first, for additional small bowel resection, and subsequently, for a ileocolonic anastomosis. The patient's currently on 2 L nasal cannula. She's getting TPN at 50 mL an hour. She's also getting lactated Ringer's at 10 mL an hour. She i s somewhat lethargic and somnolent today, but she does arouse. The patient could be transferred out to the general medical floor with telemetry. Current lab data includes a white count 8.2, hemoglobin 7.9, hematocrit 25.4, and platelet count that is normal. Sodium 135, potassium 3.3, chlorides 102, CO2 26, BUN 41, and creatinine 2.05. Albumin is 2.5. Microbiologic studies are negative. No chest x-ray today. Objective - Vital Signs Vital signs: Vital Signs Temp 97.7 F 12/16/21 08:00 Pulse 78 12/16/21 08:00 Resp 16 12/16/21 08:00 BP 154/76 12/16/21 08:00 Pulse Ox 98 12/16/21 08:00 Intake & Output 12/15/21 12/16/21 12/16/21 17:59 06:59 18:59 Intake Total 60 Output Total 35 Balance 25 Weight Intake: IV 60 LR 10 Mvi, Adult No.4 with Vit 50 K 10 ml Trace (Conc-1Ml/ Dose) 1 ml Sodium Chloride 4Meq/ml Vial 48 meq Potassium Acetate 10 meq Magnesium Sulfate gm 0.5 gm Calcium Gluconate 1 gm In Amino Acids 5 %/ Dextrose 20 % 1,000 ml @ 50 mls/hr IV .BY DURATION [facility] Rx#:[id number] Piperacillin-Tazobactam 3 .375 gm In Sodium Chloride 0.9% 100 ml @ 25 mls/hr IVPB Q12H [facility] Rx# :[id number] Pressure Bag Intake, IV Titration Amount Sodium Chloride 4Meq/ml Vial 48 meq Potassium Acetate 10 meq Magnesium Sulfate gm 0.5 gm Calcium Gluconate 1 gm In Amino Acids 5 %/Dextrose 20 % 1 ,000 ml @ 50 mls/hr IV . BY DURATION [facility] Rx#: [id number] Hemodialysis Output: Drainage Abdomen Left Lower Abdomen Urine 35 Hemodialysis Other: Voiding Method Indwelling Catheter ABP, PAP, CO, CI - Last Documented Arterial Blood Pressure 136/60 - Exam No acute distress, NG tube in place, with nasal cannula at 2 L/m. Saturations are excellent. HEENT examination is grossly unremarkable. Neck supple. Full range of motion. No adenopathy thyromegaly or neck vein distention. Cardiovascular examination reveals an irregular rhythm and rate. S1-S2 normal. No S3 or S4. No discernible murmur noted. Heart rate 78 bpm. Lungs reveal diffuse bilateral rhonchi. No wheezes or crackles. Breath sounds equal bilaterally. Saturations are 98 %. Abdomen soft, without bowel sounds. A wound VAC is noted. Extremities are intact. No cyanosis or clubbing. Trace edema is noted. Skin is without rash or lesion. Neurologic examination reveals the patient to be lethargic and somnolent, but she does arouse. - Labs CBC & Chem 7: 12/16/21 05:18 12/16/21 05:18 Labs: Abnormal Lab Results - Last 24 Hours (Table) 12/15/21 12/15/21 12/15/21 Range/Units 11:43 17:42 23:24 RBC (3.80-5.40) m/uL Hgb (11.4-16.0) gm/dL Hct (34.0-46.0) % RDW (11.5-15.5) % Lymphocytes # (1.0-4.8) k/uL Sodium (137-145) mmol/L Potassium (3.5-5.1) mmol/L BUN (7-17) mg/dL Creatinine (0.52-1.04) mg/dL Glucose (74-99) mg/dL POC Glucose (mg/dL) 137 H 120 H 145 H (75-99) mg/dL Calcium (8.4-10.2) mg/dL AST (14-36) U/L Alkaline Phosphatase (38-126) U/L Total Protein (6.3-8.2) g/dL Albumin (3.5-5.0) g/dL 12/16/21 12/16/21 12/16/21 Range/Units 05:18 05:18 05:59 RBC 2.62 L (3.80-5.40) m/uL Hgb 7.9 L (11.4-16.0) gm/dL Hct 25.4 L (34.0-46.0) % RDW 16.7 H (11.5-15.5) % Lymphocytes # 0.7 L (1.0-4.8) k/uL Sodium 135 L (137-145) mmol/L Potassium 3.3 L (3.5-5.1) mmol/L BUN 41 H (7-17) mg/dL Creatinine 2.05 H (0.52-1.04) mg/dL Glucose 128 H (74-99) mg/dL POC Glucose (mg/dL) 138 H (75-99) mg/dL Calcium 8.0 L (8.4-10.2) mg/dL AST 68 H (14-36) U/L Alkaline Phosphatase 27 L (38-126) U/L Total Protein 4.9 L (6.3-8.2) g/dL Albumin 2.5 L (3.5-5.0) g/dL Microbiology - Last 24 Hours (Table) 12/12/21 16:37 Blood Culture - Preliminary Blood No Growth after 72 hours Assessment and Plan Assessment: Postop day #7, status post exploratory laparotomy, excision of umbilicus hernia sac, small bowel resection, reduction of ventral hernia, and wound VAC placement. The patient was taken back to the operating room on December 11, and 220 cm of bowel was resected. The patient was taken back to the operating room on December 12, and had an ileocolonic anastomosis among other things. Routine postoperative ventilator management, status post intubation on December 09, and successful extubation on 12/14/2021. Acute kidney injury, to begin hemodialysis on December 12. History of chronic atrial fibrillation. History of DVT. History of hypertension. History of pulmonary embolism. History of osteoarthritis. History of uterine cancer. History of gout. History of chronic kidney disease. Presence of the MTHFR mutation. Plan: Plan dated 12/10/2021. The patient will not be extubated as the patient is planning to go back to the operating room either later today or tomorrow. The patient's blood gases are reasonable. Vent settings are reasonable. The patient remains on propofol at 20 mcg/kg/m, and norepinephrine at 10 mcg/m. The patient's and chronic atrial fibrillation. We'll give the patient some additional volume. I told no she can use a small amount of metoprolol IV, i.e. 5 mg. Additional recommendations and suggestions are forthcoming. Prognosis is guarded. We will continue to follow the patient make recommendations were appropriate. Plan dated 12/11/2021. The patient apparently is going back to the operating room later today. I've asked the nurse to get a stat cortisol level. This is because of the increasing norepinephrine requirements and lower blood pressures. 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 Little or no urine output was noted. The patient's BUN and creatinine has increased. Labs, x-rays, and medications are all reviewed. Prognosis is guarded. We will continue to follow and make recommendations where appropriate. The patient remains on Zosyn. Plan dated 12/12/2021. The patient went back to the operating room yesterday, and has some additional bowel resected. The patient remains on the mechanical ventilator. The patient had a hemodialysis catheter placed, and will undergo hemodialysis today. The plan is to take her back to the operating room later today. She has a wound VAC in place, and also a Gaetano-Ojeda drain. Labs, x-rays, and medications are reviewed. She remains on Zosyn. She also remains on norepinephrine at 30 mcg/m. I will add hydrocortisone 50 mg IV push every 6 hours. Prognosis is very guarded. We will continue to follow and make recommendations where appro priate. Plan dated 12/13/2021. The patient went back to the operating room yesterday, had an ileocolonic anastomosis. The patient is postop day #4 from the initial surgery. She remains on the mechanical ventilator. She had hemodialysis on December 12 and will have hemodialysis again on December 13. We will attempt a daily interruption of sedation after hemodialysis today. The patient remains on propofol, and norepinephrine, albeit at lower doses. Blood gases are reasonable. TPN will be started today. We will continue to follow make recommendations were appropriate. Prognosis is certainly guarded. Plan dated 12/14/2021. The patient will get Lasix 60 mg IV push. We continue with DVT and GI prophylaxis. No plans to go back to the operating room today. The patient will have hemodialysis today. This is day 3. Patient's on Zosyn. Microbiologic studies are currently negative. Blood gases are very reasonable. The patient's norepinephrine has been weaned down. The patient's on propofol at 40 mcg/kg/m. The patient's getting lactated Ringer's at 50 mL an hour, and TPN at 30 mL an hour. Continue to follow make recommendations where appropriate. Overall prognosis remains guarded. Plan dated 12/15/2021. The patient was successfully extubated yesterday. She continues on DVT and GI prophylaxis. NG tube remains in place. She is on nasal O2 at 2 L. The patient has been getting daily hemodialysis. She is making some urine. Norepinephrine has been weaned off. The patient's on lactated Ringer's at 10 mL an hour. We started TPN at 50 mL an hour. Microbiology is negative. The patient remains on Zosyn. We will continue to follow make recommendations where appropriate. Prognosis is certainly guarded. Plan dated 12/16/2021. The patient is doing much better. The patient continues on DVT and GI prophylaxis. The NG tube has been removed. She remains on 2 L nasal cannula. Labs, x-rays, and medications are reviewed. Norepinephrine has been weaned off. Microbiologic studies are negative. Zosyn will be discontinued. She continues with incentive spirometer. Prognosis is guarded. The patient is well enough to be transferred to the general medical floor with telemetry. We will continue to follow the patient and make recommendations were appropriate. Time with Patient: Less than 30
[2021-12-16 12:20] LABS: Glucose,Whole Blood 141 mg/dL (75-99)
--- NOTE | 2021-12-16 13:05 | P.PN ---
Subjective Patient is seen for follow-up for acute kidney injury. She has underlying chronic kidney disease NKF stage IV with baseline creatinine about 2-2.5 mg/dL. Patient also has a history of cardiomyopathy with ejection fraction 40-45%. Patient was admitted to the hospital with abdominal pain and incarcerated ventral hernia with skin necrosis and bowel necrosis with perforation. Patient is status post explorative laparotomy on 12/09/2021 with excision of umbilicus and hernial sac reduction of ventral hernia. And small bowel resection. Postoperatively patient was hypotensive requiring levo fed. Her urine output has an minimal since her surgery. Patient was taken back to or yesterday and had further resection of her bowel. Patient was taken back to or for the third time yesterday and had further resection of the bowel and [id number] il eocolonic anastomosis. A wound VAC was placed as well. Currently making urine about 30-50 cc per hour Patient was extubated. She is currently awake. Patient was dialyzed yesterday for about 2-1/2 hours with UF of about 2 L. She tolerated it well. Patient remains off of levo fed. Objective - Vital Signs Vital signs: Vital Signs Temp 97.7 F 12/16/21 08:00 Pulse 78 12/16/21 08:00 Resp 16 12/16/21 08:00 BP 154/76 12/16/21 08:00 Pulse Ox 98 12/16/21 08:00 Intake & Output 12/15/21 12/16/21 12/16/21 17:59 06:59 18:59 Intake Total 440 Output Total 570 Balance -130 Weight Intake: IV 140 LR 40 Mvi, Adult No.4 with Vit 100 K 10 ml Trace (Conc-1Ml/ Dose) 1 ml Sodium Chloride 4Meq/ml Vial 48 meq Potassium Acetate 10 meq Magnesium Sulfate gm 0.5 gm Calcium Gluconate 1 gm In Amino Acids 5 %/ Dextrose 20 % 1,000 ml @ 50 mls/hr IV .BY DURATION [facility] Rx#:[id number] Piperacillin-Tazobactam 3 .375 gm In Sodium Chloride 0.9% 100 ml @ 25 mls/hr IVPB Q12H [facility] Rx# :[id number] Pressure Bag Intake, IV Titration 300 Amount Parenteral Electrolytes 200 20 ml In Amino Acids 5 %/ Dextrose 20 % 1,000 ml @ 50 mls/hr IV .BY DURATION [facility] Rx#:[id number] Potassium Chloride 20 meq 100 In Water For Injection 1 100ml.bag @ 50 mls/hr IVPB Q2H [facility] Rx#: [id number] Sodium Chloride 4Meq/ml Vial 48 meq Potassium Acetate 10 meq Magnesium Sulfate gm 0.5 gm Calcium Gluconate 1 gm In Amino Acids 5 %/Dextrose 20 % 1 ,000 ml @ 50 mls/hr IV . BY DURATION [facility] Rx#: [id number] Hemodialysis Output: Drainage 520 Abdomen 450 Left Lower Abdomen 70 Urine 50 Hemodialysis Other: Voiding Method Indwelling Catheter ABP, PAP, CO, CI - Last Documented Arterial Blood Pressure 136/60 - Exam He shouldn't is awake. She is comfortable. She was extubated yesterday. Patient is following commands. Examination of the heart S1 and S2 Examination lungs bilateral breath sounds are heard Abdomen is soft wound is dressed with wound VAC Examination lower extremities shows 1+ edema [employer] exam, moving all 4 extremities. - Labs CBC & Chem 7: 12/16/21 05:18 12/16/21 05:18 Labs: Abnormal Lab Results - Last 24 Hours (Table) 12/15/21 12/15/21 12/16/21 Range/Units 17:42 23:24 05:18 RBC (3.80-5.40) m/uL Hgb (11.4-16.0) gm/dL Hct (34.0-46.0) % RDW (11.5-15.5) % Lymphocytes # (1.0-4.8) k/uL Sodium 135 L (137-145) mmol/L Potassium 3.3 L (3.5-5.1) mmol/L BUN 41 H (7-17) mg/dL Creatinine 2.05 H (0.52-1.04) mg/dL Glucose 128 H (74-99) mg/dL POC Glucose (mg/dL) 120 H 145 H (75-99) mg/dL Calcium 8.0 L (8.4-10.2) mg/dL AST 68 H (14-36) U/L Alkaline Phosphatase 27 L (38-126) U/L Total Protein 4.9 L (6.3-8.2) g/dL Albumin 2.5 L (3.5-5.0) g/dL 12/16/21 12/16/21 12/16/21 Range/Units 05:18 05:59 12:19 RBC 2.62 L (3.80-5.40) m/uL Hgb 7.9 L (11.4-16.0) gm/dL Hct 25.4 L (34.0-46.0) % RDW 16.7 H (11.5-15.5) % Lymphocytes # 0.7 L (1.0-4.8) k/uL Sodium (137-145) mmol/L Potassium (3.5-5.1) mmol/L BUN (7-17) mg/dL Creatinine (0.52-1.04) mg/dL Glucose (74-99) mg/dL POC Glucose (mg/dL) 138 H 141 H (75-99) mg/dL Calcium (8.4-10.2) mg/dL AST (14-36) U/L Alkaline Phosphatase (38-126) U/L Total Protein (6.3-8.2) g/dL Albumin (3.5-5.0) g/dL Microbiology - Last 24 Hours (Table) 12/12/21 16:37 Blood Culture - Preliminary Blood No Growth after 72 hours Assessment and Plan Assessment: 1. Acute kidney injury ATN currently oliguric secondary to hypotension. Started HD on 12/12/2021 2. Chronic kidney disease stage IV secondary to cardiorenal syndrome creatinine 2-2.5 mg/dL. No evidence of proteinuria on UA No hydronephrosis on CAT scan 3. Strangulated abdominal wall hernia with bowel necrosis status post explorative laparotomy with bowel resection and excision of umbilical hernia sac. Taken back to OR on 12/11/2021 with further resection of the bowel and again on 12/12/2021. Patient had ileocolonic anastomosis and a wound VAC was placed. 4. Chronic A. fib with episodes of tachycardia, currently being treated with IV Lopressor. 5. Cardiomyopathy with ejection fraction of 40-45% previously 6. Hyperkalemia associated with acute kidney injury, improved with dialysis 7 Shock related to intra-abdominal source. Levo fed currently off Plan: Hemodialysis in a.m. Replace potassium Add IV Lasix Continue to monitor for recovery of renal function.
--- NOTE | 2021-12-16 14:42 | P.PN ---
Subjective Progress Note Date: 12/16/21 History of present illness per H&P: Patient is a 71-year-old female with a history of A. fib anticoagulated on Coumadin, history of prior pulmonary embolism and DVT with known MTHFR, systolic congestive heart failure with ejection fraction 45-50% (recovered from 30-35%) and chronic kidney disease stage IV following with nephrology on an outpatient basis who presented for abdominal wall hernia that is no longer reducible. On arrival she was found to be tachycardic. Laboratory analysis showed a white blood cell count of 13.8, creatinine was near her baseline at 2.13 consistent with her chronic kidney disease stage IV, glucose was mildly elevated at 153 on the laboratory analysis is otherwise unremarkable. She underwent a CT abdomen and pelvis which demonstrated a large lower anterior abdominal wall ventral hernia containing multiple bowel loops without signs of obstruction. In the emergency department she was started on Zosyn, IV fluids, and pain medications. She was placed in observation for further surgical evaluation. Patient seen adnexamined at bedside. Has abdominal wall hernia that was reproducible until yesterday. Now having pain at the hernia site that wraps to her back. Had a bowel movement where she had to bare down and then noticed that it was no longer reducible. + nuasea with vomiting X 1. No dificulty with urination. + Shortness of breath after this incident. She uses a walker at baseline. She is independent with bathing and dressing as well as meal prep. She does have assistance with cleaning. She is able to walk for steroids at this time with physical therapy, but has been unable to leave her house. She is unable to walk a full flight of stairs. She denies any recent episodes of chest pain or syncope. Status post exploratory laparotomy, excision of umbilicus and hernia sac, small bowel resection, reduction of ventral hernia and wound VAC placement on December 09 Interval history: 12/12 Patient was seen and examined at the bedside. Still sedated and intubated. Patient was taken to or yesterday she had 220 cm necrotic small bowel removed by general surgery with wound VAC placement. Since yesterday she has required dialysis catheter placement and has started hemodialysis this morning. Chest x-ray shows persistent bilateral infiltrates, laboratory studies show a significant leukocytosis but her pressor requirement is starting to come down, mean arterial pressures are adequate. 12/13 patient was examined at bedside. She is still intubated. She was taken to or yesterday for third expiratory laparotomy she had [id number] ileocolonic anastomosis with closure of mesenteric defect. 12/14 patient was examined at the bedside. Patient still intubated. She is currently off Levophed. Still oliguric urine output is 200 over the past 24 hours. Critical care team planning possible extubation today. 12/15 The patient was successfully extubated yesterday. NG tube remains in place. She is on nasal O2 at 2 L. she had hemodialysis yesterday and today. She is making some urine. Norepinephrine has been weaned off. The patient's on lactated Ringer's at 10 mL an hour. We started TPN at 50 mL an hour. Microbiology is negative. She is awake alert oriented to her name otherwise she seems to be very weak and confused. 12/16 patient was examined at bedside. She is awake alert oriented 2. She denies any chest pain or shortness of breath. She has been transferred out of ICU per critical care team. Objective - Vital Signs Vital signs: Vital Signs Temp 97.7 F 12/16/21 08:00 Pulse 78 12/16/21 08:00 Resp 16 12/16/21 08:00 BP 154/76 12/16/21 08:00 Pulse Ox 98 12/16/21 08:00 Intake & Output 12/15/21 12/16/21 12/16/21 17:59 06:59 18:59 Intake Total 440 Output Total 570 Balance -130 Weight Intake: IV 140 LR 40 Mvi, Adult No.4 with Vit 100 K 10 ml Trace (Conc-1Ml/ Dose) 1 ml Sodium Chloride 4Meq/ml Vial 48 meq Potassium Acetate 10 meq Magnesium Sulfate gm 0.5 gm Calcium Gluconate 1 gm In Amino Acids 5 %/ Dextrose 20 % 1,000 ml @ 50 mls/hr IV .BY [facility] Rx#:[id number] Piperacillin-Tazobactam 3 .375 gm In Sodium Chloride 0.9% 100 ml @ 25 mls/hr IVPB Q12H [facility] Rx# :[id number] Pressure Bag Intake, IV Titration 300 Amount Parenteral Electrolytes 200 20 ml In Amino Acids 5 %/ Dextrose 20 % 1,000 ml @ 50 mls/hr IV .BY D[facility] Rx#:[id number] Potassium Chloride 20 meq 100 In Water For Injection 1 100ml.bag @ 50 mls/hr IVPB Q2H [facility] Rx#: [id number] Sodium Chloride 4Meq/ml Vial 48 meq Potassium Acetate 10 meq Magnesium Sulfate gm 0.5 gm Calcium Gluconate 1 gm In Amino Acids 5 %/Dextrose 20 % 1 ,000 ml @ 50 mls/hr IV . BY D[facility]ATION [facility] Rx#: [id number] Hemodialysis Output: Drainage 520 Abdomen 450 Left Lower Abdomen 70 Urine 50 Hemodialysis Other: Voiding Method Indwelling Catheter ABP, PAP, CO, CI - Last Documented Arterial Blood Pressure 136/60 - Exam General: Awake and oriented 2 Derm: warm, dry Head: atraumatic, normocephalic, symmetric Eyes: EOMI, no lid lag, anicteric sclera Mouth: no lip lesion, mucus membranes moist Cardiovascular: Irregular regular rhythm. A. fib Lungs: CTA bilateral, no rhonchi, no rales , no accessory muscle use Abdominal: Soft without bowel sounds. [address] Abdomen is open Ext: no gross muscle atrophy, no edema, no contractures Neuro: No focal deficit - Labs CBC & Chem 7: 12/16/21 05:18 12/16/21 05:18 Labs: Abnormal Lab Results - Last 24 Hours (Table) 12/15/21 12/15/21 12/16/21 Range/Units 17:42 23:24 05:18 RBC (3.80-5.40) m/uL Hgb (11.4-16.0) gm/dL Hct (34.0-46.0) % RDW (11.5-15.5) % Lymphocytes # (1.0-4.8) k/uL Sodium 135 L (137-145) mmol/L Potassium 3.3 L (3.5-5.1) mmol/L BUN 41 H (7-17) mg/dL Creatinine 2.05 H (0.52-1.04) mg/dL Glucose 128 H (74-99) mg/dL POC Glucose (mg/dL) 120 H 145 H (75-99) mg/dL Calcium 8.0 L (8.4-10.2) mg/dL AST 68 H (14-36) U/L Alkaline Phosphatase 27 L (38-126) U/L Total Protein 4.9 L (6.3-8.2) g/dL Albumin 2.5 L (3.5-5.0) g/dL 12/16/21 12/16/21 12/16/21 Range/Units 05:18 05:59 12:19 RBC 2.62 L (3.80-5.40) m/uL Hgb 7.9 L (11.4-16.0) gm/dL Hct 25.4 L (34.0-46.0) % RDW 16.7 H (11.5-15.5) % Lymphocytes # 0.7 L (1.0-4.8) k/uL Sodium (137-145) mmol/L Potassium (3.5-5.1) mmol/L BUN (7-17) mg/dL Creatinine (0.52-1.04) mg/dL Glucose (74-99) mg/dL POC Glucose (mg/dL) 138 H 141 H (75-99) mg/dL Calcium (8.4-10.2) mg/dL AST (14-36) U/L Alkaline Phosphatase (38-126) U/L Total Protein (6.3-8.2) g/dL Albumin (3.5-5.0) g/dL Microbiology - Last 24 Hours (Table) 12/12/21 16:37 Blood Culture - Preliminary Blood No Growth after 72 hours Assessment and Plan Assessment: Assessment and plan: Septic Shock from Small Bowel Necrosis and Perforation Strangulated abdominal wall hernia to the left of the umbilicus containing loops of bowel -December 09 status post exploratory laparotomy, excision of umbilicus hernia sac, small bowel resection, reduction of ventral hernia, and wound VAC placement. -December 11 Second Look laparotomy with abdominal exploration, resection of 220 cm necrotic small bowel segment, right hemicolectomy, temporary abdominal closure with Apthera VAC. -December 12 Third look exploratory laparotomy with [id number] antimesenteric ileocolonic anastomosis with closure of mesenteric defect, fascial block, primary fascial closure, application of negative pressure wound VAC dressing over 20 x 20 x 5 cm midline surgical soft tissue wound. -Infectious disease consulted December 11 -levophed weaned off -Extubated December 14 -Hold Coumadin until clered by surgery -IV Zosyn per infectious disease Acute ventilatory dependent respiratory failure status post extubation December 14 Atrial fibrillation with RVR -anticoagulated with Coumadin at baseline -IV Lopressor for rate control per cardiology Cardiomyopathy with ejection fraction 45-50% -Not chronically on CHARLES inhibitor, resume IV metoprolol -Continue with tele -cardiology following Acute kidney injury possibly secondary to ATN -Status post hemodialysis -Nephrology managing Chronic kidney disease stage IV Hypercoaguability with MTHFR History of DVT and pulmonary embolism -on heparin TID for DVT PPx Severe obesity with BMI 52.1 outpt weight loss referral History of osteoarthritis. History of uterine cancer. History of gout. DVT prophylaxis: heparin TID Condition is critical.
[2021-12-16 17:30] LABS: Glucose,Whole Blood 123 mg/dL (75-99)
[2021-12-17] MEDS: HEPARIN SODIUM,PORCINE/PF 5,000 UNIT/0.5 ML SYRINGE SQ SCH ×3 (00:15→18:19)
[2021-12-17] MEDS: INSULIN ASPART (NovoLOG) 100 UNIT/ML VIAL SQ SCH ×4 (00:16→17:42)
[2021-12-17 00:17] LABS: Glucose,Whole Blood 108 mg/dL (75-99)
[2021-12-17] MEDS: 1: MVI, ADULT NO.4 WITH VIT K 10 ML, TRACE (CONC-1ML/DOSE) 1 ML, PARENTERAL ELECTROLYTES IV SCH ×4 (07:36)
[2021-12-17] MEDS: PIPERACILLIN-TAZOBACTAM 3.375 GM in SODIUM CHLORIDE 0.9% 100 ML IVPB SCH ×2 (07:36→18:19)
[2021-12-17 07:37] LABS: Glucose,Whole Blood 94 mg/dL (75-99)
[2021-12-17 08:37] LABS: ALT 70 U/L (4-34); AST 92 U/L (14-36); African American GFR (CKD) 20 (>60 ml/min/1.73 sqM); Albumin 2.5 g/dL (3.5-5.0); Alkaline Phosphatase 31 U/L (38-126); Anion Gap 6 mmol/L; Blood Urea Nitrogen 59 mg/dL (7-17); Calcium 8.2 mg/dL (8.4-10.2); Carbon Dioxide 24 mmol/L (22-30); Chloride 108 mmol/L (98-107); Globulin 2.5 g/dL; Glucose 88 mg/dL (74-99); Non-African American GFR(CKD) 18 (>60 ml/min/1.73 sqM); Phosphorus 3.6 mg/dL (2.5-4.5); Potassium 2.9 mmol/L (3.5-5.1); Sodium 138 mmol/L (137-145); Total Bilirubin 0.6 mg/dL (0.2-1.3)
[2021-12-17] MEDS: PANTOPRAZOLE 40 MG/10 ML VIAL IV SCH (09:39)
[2021-12-17 10:59] LABS: HCT 25.2 % (37.2-46.3); HGB 7.4 g/dL (12.0-15.0); MCH 28.5 pg (27.0-32.0); MCHC 29.4 g/dL (32.0-37.0); MCV 96.9 fL (80.0-97.0); Mean Platelet Volume 10.3 fL (9.5-12.2); NRBC Per 100 WBC 0.2 /100 WBCS (0.0-0.0); Platelet Count 212 X 10*3/uL (140-440); WBC 10.39 X 10*3/uL (4.50-10.00)
[2021-12-17] MEDS ORDERED: POTASSIUM CHLORIDE 20 MEQ in WATER FOR INJECTION 1 100ML.BAG IVPB ONE (11:00)
--- NOTE | 2021-12-17 11:08 | P.PN ---
Subjective Patient is seen in follow-up for acute kidney injury on chronic kidney disease. Started on hemodialysis 12/12/2021. Receiving TPN. Speech eval pending. Urine output documented as 500 mL so far today. Patient is resting in bed. Blood pressure stable. On 2 L nasal cannula. Vital signs are stable. General: Awake and alert. HEENT: Nasal cannula. LUNGS: Breath sounds decreased. HEART: Rate and Rhythm are regular. ABDOMEN: No distention noted. EXTREMITITES: 1+ edema. Objective - Vital Signs Vital signs: Vital Signs Temp 98.0 F 12/17/21 04:25 Pulse 93 12/17/21 04:25 Resp 18 12/17/21 04:25 BP 102/51 12/17/21 04:25 Pulse Ox 97 12/17/21 04:25 Intake & Output 12/16/21 12/17/21 12/17/21 18:59 06:59 18:59 Intake Total 790 700 Output Total 830 600 Balance -40 100 Intake: IV 140 LR 40 Mvi, Adult No.4 with Vit 100 K 10 ml Trace (Conc-1Ml/ Dose) 1 ml Sodium Chloride 4Meq/ml Vial 48 meq Potassium Acetate 10 meq Magnesium Sulfate gm 0.5 gm Calcium Gluconate 1 gm In Amino Acids 5 %/ Dextrose 20 % 1,000 ml @ 50 mls/hr IV .BY [facility] Rx#:[id number] Intake, IV Titration 650 700 Amount Parenteral Electrolytes 450 600 20 ml In Amino Acids 5 %/ Dextrose 20 % 1,000 ml @ 50 mls/hr IV .BY D[facility] Rx#:[id number] Piperacillin-Tazobactam 3 100 100 .375 gm In Sodium Chloride 0.9% 100 ml @ 25 mls/hr IVPB Q12H [facility] Rx# :[id number] Potassium Chloride 20 meq 100 In Water For Injection 1 100ml.bag @ 50 mls/hr IVPB Q2H [facility] Rx#: [id number] Output: Drainage 580 100 Abdomen 450 Left Lower Abdomen 130 100 Urine 250 500 Other: Voiding Method Indwelling Catheter Indwelling Catheter # Bowel Movements 1 ABP, PAP, CO, CI - Last Documented Arterial Blood Pressure 136/60 - Labs CBC & Chem 7: 12/17/21 07:31 12/17/21 07:30 Labs: Abnormal Lab Results - Last 24 Hours (Table) 12/16/21 12/16/21 12/17/21 Range/Units 12:19 17:29 00:14 WBC (4.50-10.00) X 10*3/uL RBC (4.10-5.20) X 10*6/uL Hgb (12.0-15.0) g/dL Hct (37.2-46.3) % MCHC (32.0-37.0) g/dL RDW (11.5-14.5) % Absolute Nucleated RBC (0.00-0.00) X 10*3/uL NRBC/100 WBC Diff (0.0-0.0) /100 WBCS Potassium (3.5-5.1) mmol/L Chloride (98-107) mmol/L BUN (7-17) mg/dL Creatinine (0.52-1.04) mg/dL POC Glucose (mg/dL) 141 H 123 H 108 H (75-99) mg/dL Calcium (8.4-10.2) mg/dL AST (14-36) U/L ALT (4-34) U/L Alkaline Phosphatase (38-126) U/L Total Protein (6.3-8.2) g/dL Albumin (3.5-5.0) g/dL 12/17/21 12/17/21 Range/Units 07:30 07:31 WBC 10.39 H (4.50-10.00) X 10*3/uL RBC 2.60 L (4.10-5.20) X 10*6/uL Hgb 7.4 L (12.0-15.0) g/dL Hct 25.2 L (37.2-46.3) % MCHC 29.4 L (32.0-37.0) g/dL RDW 16.0 H (11.5-14.5) % Absolute Nucleated RBC 0.02 H (0.00-0.00) X 10*3/uL NRBC/100 WBC Diff 0.2 H (0.0-0.0) /100 WBCS Potassium 2.9 L (3.5-5.1) mmol/L Chloride 108 H (98-107) mmol/L BUN 59 H (7-17) mg/dL Creatinine 2.60 H (0.52-1.04) mg/dL POC Glucose (mg/dL) (75-99) mg/dL Calcium 8.2 L (8.4-10.2) mg/dL AST 92 H (14-36) U/L ALT 70 H (4-34) U/L Alkaline Phosphatase 31 L (38-126) U/L Total Protein 5.0 L (6.3-8.2) g/dL Albumin 2.5 L (3.5-5.0) g/dL Microbiology - Last 24 Hours (Table) 12/12/21 16:37 Blood Culture - Preliminary Blood No Growth after 96 hours Assessment and Plan Plan: Assessment: 1. Acute kidney injury secondary to ATN secondary to hypotension/shock. Started on hemodialysis 12/12/2021. Has a right femoral catheter. 2. Chronic kidney disease stage IV secondary to cardiorenal syndrome with baseline creatinine in the range of 2-2.5. UA benign. No hydronephrosis noted on CAT scan. 3. 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 Further resection done 12/11/2021 and 12/12/2021. 4. Acute on chronic systolic CHF with ejection fraction of 40-45%. 5. Hypokalemia from diuresis. 6. Anemia of chronic kidney disease. 7. A. fib with RVR. Cardiology following. Plan: Hemodialysis today with 3K bath. Potassium being replaced. Strict I's and O's. Monitor for renal recovery. Check iron studies. Avoid nephrotoxins. Add IV Lasix.
[2021-12-17] MEDS: ONDANSETRON 4 MG/2 ML VIAL IVP PRN (11:26)
[2021-12-17 11:44] LABS: Glucose,Whole Blood 108 mg/dL (75-99)
--- NOTE | 2021-12-17 12:11 | P.PN ---
Subjective Progress Note Date: 12/17/21 Patient seen and examined at bedside. States she is hungry. Denies abdominal pain. Unsure of bowel movement in the last 24 hours. Objective - Vital Signs Vital signs: Vital Signs Temp 98.0 F 12/17/21 04:25 Pulse 96 12/17/21 11:23 Resp 18 12/17/21 04:25 BP 161/90 12/17/21 11:23 Pulse Ox 97 12/17/21 04:25 Intake & Output 12/16/21 12/17/21 12/17/21 18:59 06:59 18:59 Intake Total 790 700 Output Total 830 600 Balance -40 100 Intake: IV 140 LR 40 Mvi, Adult No.4 with Vit 100 K 10 ml Trace (Conc-1Ml/ Dose) 1 ml Sodium Chloride 4Meq/ml Vial 48 meq Potassium Acetate 10 meq Magnesium Sulfate gm 0.5 gm Calcium Gluconate 1 gm In Amino Acids 5 %/ Dextrose 20 % 1,000 ml @ 50 mls/hr IV .BY [facility] Rx#:[id number] Intake, IV Titration 650 700 Amount Parenteral Electrolytes 450 600 20 ml In Amino Acids 5 %/ Dextrose 20 % 1,000 ml @ 50 mls/hr IV [facility] Rx#:[id number] Piperacillin-Tazobactam 3 100 100 .375 gm In Sodium Chloride 0.9% 100 ml @ 25 mls/hr IVPB Q12H [facility] Rx# :[id number] Potassium Chloride 20 meq 100 In Water For Injection 1 100ml.bag @ 50 mls/hr IVPB Q2H [facility] Rx#: [id number] Output: Drainage 580 100 Abdomen 450 Left Lower Abdomen 130 100 Urine 250 500 Other: Voiding Method Indwelling Catheter Indwelling Catheter # Bowel Movements 1 ABP, PAP, CO, CI - Last Documented Arterial Blood Pressure 136/60 - Constitutional General appearance: Present: cooperative - Gastrointestinal Gastrointestinal Comment(s): Soft, nontender, obese, nondistended, wound VAC in place and midline, JADE drain in place with serosanguineous output - Musculoskeletal Musculoskeletal: Present: generalized weakness - Labs CBC & Chem 7: 12/17/21 07:31 12/17/21 07:30 Labs: Abnormal Lab Results - Last 24 Hours (Table) 12/16/21 12/16/21 12/17/21 Range/Units 12:19 17:29 00:14 WBC (4.50-10.00) X 10*3/uL RBC (4.10-5.20) X 10*6/uL Hgb (12.0-15.0) g/dL Hct (37.2-46.3) % MCHC (32.0-37.0) g/dL RDW (11.5-14.5) % Absolute Nucleated RBC (0.00-0.00) X 10*3/uL NRBC/100 WBC Diff (0.0-0.0) /100 WBCS Potassium (3.5-5.1) mmol/L Chloride (98-107) mmol/L BUN (7-17) mg/dL Creatinine (0.52-1.04) mg/dL POC Glucose (mg/dL) 141 H 123 H 108 H (75-99) mg/dL Calcium (8.4-10.2) mg/dL AST (14-36) U/L ALT (4-34) U/L Alkaline Phosphatase (38-126) U/L Total Protein (6.3-8.2) g/dL Albumin (3.5-5.0) g/dL 12/17/21 12/17/21 12/17/21 Range/Units 07:30 07:31 11:24 WBC 10.39 H (4.50-10.00) X 10*3/uL RBC 2.60 L (4.10-5.20) X 10*6/uL Hgb 7.4 L (12.0-15.0) g/dL Hct 25.2 L (37.2-46.3) % MCHC 29.4 L (32.0-37.0) g/dL RDW 16.0 H (11.5-14.5) % Absolute Nucleated RBC 0.02 H (0.00-0.00) X 10*3/uL NRBC/100 WBC Diff 0.2 H (0.0-0.0) /100 WBCS Potassium 2.9 L (3.5-5.1) mmol/L Chloride 108 H (98-107) mmol/L BUN 59 H (7-17) mg/dL Creatinine 2.60 H (0.52-1.04) mg/dL POC Glucose (mg/dL) 108 H (75-99) mg/dL Calcium 8.2 L (8.4-10.2) mg/dL AST 92 H (14-36) U/L ALT 70 H (4-34) U/L Alkaline Phosphatase 31 L (38-126) U/L Total Protein 5.0 L (6.3-8.2) g/dL Albumin 2.5 L (3.5-5.0) g/dL Microbiology - Last 24 Hours (Table) 12/12/21 16:37 Blood Culture - Preliminary Blood No Growth after 96 hours Assessment and Plan Plan: 71-year-old female that presented with a strangulated ventral hernia with bowel ischemia and perforation. She initially underwent an exploratory laparotomy and small bowel resection with discontinuity and Apthera placement with plan for second look for further evaluation of any demarcation of the bowel secondary to ischemic changes. Second look exploratory laparotomy required further bowel resection. Third look was also performed in which patient did have an ileocolic anastomosis created. Wound VAC was applied over the wound. Patient has been transferred to the floor. She was evaluated by speech therapy and recommendation is for pured diet. We will begin the pured diet and begin tapering the TPN. Continue with wound VAC. Continue medical management.
[2021-12-17] MEDS: FUROSEMIDE 10 MG/ML 10 ML VIAL IV SCH ×2 (12:25→21:29)
[2021-12-17 12:32] LABS: Glucose,Whole Blood 106 mg/dL (75-99)
[2021-12-17 13:12] LABS: Basophils # (M) 0 X 10*3/uL (0.00-0.10); Eosinophils # (M) 0 X 10*3/uL (0.04-0.35); Lymphocytes # (M) 0.42 X 10*3/uL (0.90-5.00); Monocytes # (M) 0.31 X 10*3/uL (0.20-1.00); Myelocytes % 4 % (0-0); Neutrophils # (M) 9.25 X 10*3/uL (2.00-8.90); Neutrophils % (M) 89 %
--- NOTE | 2021-12-17 15:17 | P.PN ---
Subjective Progress Note Date: 12/17/21 History of present illness per H&P: Patient is a 71-year-old female with a history of A. fib anticoagulated on Coumadin, history of prior pulmonary embolism and DVT with known MTHFR, systolic congestive heart failure with ejection fraction 45-50% (recovered from 30-35%) and chronic kidney disease stage IV following with nephrology on an outpatient basis who presented for abdominal wall hernia that is no longer reducible. On arrival she was found to be tachycardic. Laboratory analysis showed a white blood cell count of 13.8, creatinine was near her baseline at 2.13 consistent with her chronic kidney disease stage IV, glucose was mildly elevated at 153 on the laboratory analysis is otherwise unremarkable. She underwent a CT abdomen and pelvis which demonstrated a large lower anterior abdominal wall ventral hernia containing multiple bowel loops without signs of obstruction. In the emergency department she was started on Zosyn, IV fluids, and pain medications. She was placed in observation for further surgical evaluation. Patient seen adnexamined at bedside. Has abdominal wall hernia that was reproducible until yesterday. Now having pain at the hernia site that wraps to her back. Had a bowel movement where she had to bare down and then noticed that it was no longer reducible. + nuasea with vomiting X 1. No dificulty with urination. + Shortness of breath after this incident. She uses a walker at baseline. She is independent with bathing and dressing as well as meal prep. She does have assistance with cleaning. She is able to walk for steroids at this time with physical therapy, but has been unable to leave her house. She is unable to walk a full flight of stairs. She denies any recent episodes of chest pain or syncope. Status post exploratory laparotomy, excision of umbilicus and hernia sac, small bowel resection, reduction of ventral hernia and wound VAC placement on December 09 Interval history: 12/12 Patient was seen and examined at the bedside. Still sedated and intubated. Patient was taken to or yesterday she had 220 cm necrotic small bowel removed by general surgery with wound VAC placement. Since yesterday she has required dialysis catheter placement and has started hemodialysis this morning. Chest x-ray shows persistent bilateral infiltrates, laboratory studies show a significant leukocytosis but her pressor requirement is starting to come down, mean arterial pressures are adequate. 12/13 patient was examined at bedside. She is still intubated. She was taken to or yesterday for third expiratory laparotomy she had [id number] ileocolonic anastomosis with closure of mesenteric defect. 12/14 patient was examined at the bedside. Patient still intubated. She is currently off Levophed. Still oliguric urine output is 200 over the past 24 hours. Critical care team planning possible extubation today. 12/15 The patient was successfully extubated yesterday. NG tube remains in place. She is on nasal O2 at 2 L. she had hemodialysis yesterday and today. She is making some urine. Norepinephrine has been weaned off. The patient's on lactated Ringer's at 10 mL an hour. We started TPN at 50 mL an hour. Microbiology is negative. She is awake alert oriented to her name otherwise she seems to be very weak and confused. 12/16 patient was examined at bedside. She is awake alert oriented 2. She denies any chest pain or shortness of breath. She has been transferred out of ICU per critical care team. 12/17 patient was examined at the bedside. She is still alert and oriented 2. She is complaining of generalized weakness. She denies any chest pain or shortness breath. She was transferred out of the ICU overnight. Patient was seen by speech and started on pure diet. Objective - Vital Signs Vital signs: Vital Signs Temp 98.0 F 12/17/21 04:25 Pulse 96 12/17/21 11:23 Resp 18 12/17/21 04:25 BP 161/90 12/17/21 11:23 Pulse Ox 97 12/17/21 04:25 Intake & Output 12/16/21 12/17/21 12/17/21 18:59 06:59 18:59 Intake Total 790 700 Output Total 830 600 Balance -40 100 Weight 147.4 kg Intake: IV 140 LR 40 Mvi, Adult No.4 with Vit 100 K 10 ml Trace (Conc-1Ml/ Dose) 1 ml Sodium Chloride 4Meq/ml Vial 48 meq Potassium Acetate 10 meq Magnesium Sulfate gm 0.5 gm Calcium Gluconate 1 gm In Amino Acids 5 %/ Dextrose 20 % 1,000 ml @ 50 mls/hr IV .BY DURATION [facility] Rx#:[id number] Intake, IV Titration 650 700 Amount Parenteral Electrolytes 450 600 20 ml In Amino Acids 5 %/ Dextrose 20 % 1,000 ml @ 50 mls/hr IV .BY D[facility]ATION [facility] Rx#:[id number] Piperacillin-Tazobactam 3 100 100 .375 gm In Sodium Chloride 0.9% 100 ml @ 25 mls/hr IVPB Q12H [facility] Rx# :[id number] Potassium Chloride 20 meq 100 In Water For Injection 1 100ml.bag @ 50 mls/hr IVPB Q2H [facility] Rx#: [id number] Output: Drainage 580 100 Abdomen 450 Left Lower Abdomen 130 100 Urine 250 500 Other: Voiding Method Indwelling Catheter Indwelling Catheter # Bowel Movements 1 ABP, PAP, CO, CI - Last Documented Arterial Blood Pressure 136/60 - Exam General: Awake and oriented 2 Derm: warm, dry Head: atraumatic, normocephalic, symmetric Eyes: EOMI, no lid lag, anicteric sclera Mouth: no lip lesion, mucus membranes moist Cardiovascular: Irregular regular rhythm. A. fib Lungs: CTA bilateral, no rhonchi, no rales , no accessory muscle use Abdominal: Soft without bowel sounds. [address] Abdomen is open Ext: no gross muscle atrophy, no edema, no contractures Neuro: No focal deficit - Labs CBC & Chem 7: 12/17/21 07:31 12/17/21 07:30 Labs: Abnormal Lab Results - Last 24 Hours (Table) 12/16/21 12/17/21 12/17/21 Range/Units 17:29 00:14 07:30 WBC (4.50-10.00) X 10*3/uL RBC (4.10-5.20) X 10*6/uL Hgb (12.0-15.0) g/dL Hct (37.2-46.3) % MCHC (32.0-37.0) g/dL RDW (11.5-14.5) % Absolute Nucleated RBC (0.00-0.00) X 10*3/uL Myelocytes % (0-0) % Neutrophils # (Manual) (2.00-8.90) X 10*3/uL Lymphocytes # (Manual) (0.90-5.00) X 10*3/uL Eosinophils # (Manual) (0.04-0.35) X 10*3/uL NRBC/100 WBC Diff (0.0-0.0) /100 WBCS Potassium 2.9 L (3.5-5.1) mmol/L Chloride 108 H (98-107) mmol/L BUN 59 H (7-17) mg/dL Creatinine 2.60 H (0.52-1.04) mg/dL POC Glucose (mg/dL) 123 H 108 H (75-99) mg/dL Calcium 8.2 L (8.4-10.2) mg/dL AST 92 H (14-36) U/L ALT 70 H (4-34) U/L Alkaline Phosphatase 31 L (38-126) U/L Total Protein 5.0 L (6.3-8.2) g/dL Albumin 2.5 L (3.5-5.0) g/dL 12/17/21 12/17/21 12/17/21 Range/Units 07:31 11:24 12:30 WBC 10.39 H (4.50-10.00) X 10*3/uL RBC 2.60 L (4.10-5.20) X 10*6/uL Hgb 7.4 L (12.0-15.0) g/dL Hct 25.2 L (37.2-46.3) % MCHC 29.4 L (32.0-37.0) g/dL RDW 16.0 H (11.5-14.5) % Absolute Nucleated RBC 0.02 H (0.00-0.00) X 10*3/uL Myelocytes % 4 H (0-0) % Neutrophils # (Manual) 9.25 H (2.00-8.90) X 10*3/uL Lymphocytes # (Manual) 0.42 L (0.90-5.00) X 10*3/uL Eosinophils # (Manual) 0 L (0.04-0.35) X 10*3/uL NRBC/100 WBC Diff 0.2 H (0.0-0.0) /100 WBCS Potassium (3.5-5.1) mmol/L Chloride (98-107) mmol/L BUN (7-17) mg/dL Creatinine (0.52-1.04) mg/dL POC Glucose (mg/dL) 108 H 106 H (75-99) mg/dL Calcium (8.4-10.2) mg/dL AST (14-36) U/L ALT (4-34) U/L Alkaline Phosphatase (38-126) U/L Total Protein (6.3-8.2) g/dL Albumin (3.5-5.0) g/dL Microbiology - Last 24 Hours (Table) 12/12/21 16:37 Blood Culture - Preliminary Blood No Growth after 96 hours Assessment and Plan Assessment: Assessment and plan: Septic Shock from Small Bowel Necrosis and Perforation Strangulated abdominal wall hernia to the left of the umbilicus containing loops of bowel -December 09 status post exploratory laparotomy, excision of umbilicus hernia sac, small bowel resection, reduction of ventral hernia, and wound VAC placement. -December 11 Second Look laparotomy with abdominal exploration, resection of 220 cm necrotic small bowel segment, right hemicolectomy, temporary abdominal closure with Apthera VAC. -December 12 Third look exploratory laparotomy with [id number] antimesenteric ileocolonic anastomosis with closure of mesenteric defect, fascial block, primary fascial closure, application of negative pressure wound VAC dressing over 20 x 20 x 5 cm midline surgical soft tissue wound. -Infectious disease consulted December 11 -Extubated December 14 -Hold Coumadin until clered by surgery -IV Zosyn per infectious disease -Tapering TPN -Started on pured diet December 17 Acute ventilatory dependent respiratory failure status post extubation December 14 Atrial fibrillation with RVR -anticoagulated with Coumadin at baseline -Start Lopressor 25 twice a day -Start anticoagulation when it is okay with general surgery Cardiomyopathy with ejection fraction 45-50% -Not chronically on CHARLES inhibitor -Start Lopressor 25 twice a day and titrate as needed -Continue with tele -cardiology following Acute kidney injury possibly secondary to ATN -Started hemodialysis December 12 -Urine output documented as 500 mL so far today. -Hemodialysis today per nephrology -Nephrology managing Chronic kidney disease stage IV Hypercoaguability with MTHFR History of DVT and pulmonary embolism -on heparin TID for DVT PPx Severe obesity with BMI 52.1 outpt weight loss referral History of osteoarthritis. History of uterine cancer. History of gout. DVT prophylaxis: heparin TID Condition is critical.
--- NOTE | 2021-12-17 15:25 | P.PN ---
<Zoey Huber M - Last Filed: 12/17/21 15:10> Subjective Progress Note Date: 12/17/21 Principal diagnosis: Abdominal pain On 12/17/2021 patient seen in follow-up on regular medical surgical floor. She is awake, does not appear to be in any acute distress, she is on 2 L of oxygen pulse ox is 97%. Denies any shortness of breath, her lung sounds are clear to auscultation, patient is on the blended diet however it appears that her appetite has been quite poor, and patient remains on TPN running at 50 ML per hour. Patient has a wound VAC in place to continue suction with black foam. Ab brito is soft, obese, nontender. Patient remains on hemodialysis, last hemodialysis session was on 12/15/2021 would removal of 3.8 L of fluid. Right groin hemodialysis catheter is in place, clean dry and intact. She remains on Zosyn. She remains on Lasix 60 mg every 12 hours, and nephrology is following. His labs have been reviewed, we will with with, was 10.3, hemoglobin is 7.4, platelet count 212, sodium is 130, potassium 2.9, chloride is 108, BUN is 59, creatinine is 2.6. No acute events overnight. Patient is answering questions appropriately. Seems a bit dehydrated, oral membranes are quite dry. Objective - Vital Signs Vital signs: Vital Signs Temp 98.0 F 12/17/21 04:25 Pulse 96 12/17/21 11:23 Resp 18 12/17/21 04:25 BP 161/90 12/17/21 11:23 Pulse Ox 97 12/17/21 04:25 Intake & Output 12/16/21 12/17/21 12/17/21 18:59 06:59 18:59 Intake Total 790 700 Output Total 830 600 Balance -40 100 Weight 147.4 kg Intake: IV 140 LR 40 Mvi, Adult No.4 with Vit 100 K 10 ml Trace (Conc-1Ml/ Dose) 1 ml Sodium Chloride 4Meq/ml Vial 48 meq Potassium Acetate 10 meq Magnesium Sulfate gm 0.5 gm Calcium Gluconate 1 gm In Amino Acids 5 %/ Dextrose 20 % 1,000 ml @ 50 mls/hr IV .BY DURATION [facility] Rx#:[id number] Intake, IV Titration 650 700 Amount Parenteral Electrolytes 450 600 20 ml In Amino Acids 5 %/ Dextrose 20 % 1,000 ml @ 50 mls/hr IV .BY DURATION [facility] Rx#:[id number] Piperacillin-Tazobactam 3 100 100 .375 gm In Sodium Chloride 0.9% 100 ml @ 25 mls/hr IVPB Q12H [facility] Rx# :[id number] Potassium Chloride 20 meq 100 In Water For Injection 1 100ml.bag @ 50 mls/hr IVPB Q2H [facility] Rx#: [id number] Output: Drainage 580 100 Abdomen 450 Left Lower Abdomen 130 100 Urine 250 500 Other: Voiding Method Indwelling Catheter Indwelling Catheter # Bowel Movements 1 ABP, PAP, CO, CI - Last Documented Arterial Blood Pressure 136/60 - Exam GENERAL EXAM: Alert, oriented 2, 71-year-old morbidly obese white female on 2 L of oxygen with pulse ox of 97% comfortable in no apparent distress. HEAD: Normocephalic/atraumatic. EYES: Normal reaction of pupils, equal size. Conjunctiva pink, sclera white. NOSE: Clear with pink turbinates. MOUTH: Oral membranes are quite dry THROAT: No erythema or exudates. NECK: No masses, no JVD, no thyroid enlargement, no adenopathy. CHEST: No chest wall deformity. Symmetrical expansion. LUNGS: Equal air entry with no crackles, wheeze, rhonchi or dullness. CVS: Regular rate and rhythm, normal S1 and S2, no gallops, no murmurs, no rubs ABDOMEN: Soft, nontender, midabdominal abdominal wound with wound VAC in place and black foam, to continue suction with moderate amount of serous output. No hepatosplenomegaly, normal bowel sounds, no guarding or rigidity. EXTREMITIES: No clubbing, mild lower extremity edema, no cyanosis, 2+ pulses and upper and lower extremities. Right groin temporary hemodialysis catheter is in place clean dry and intact MUSCULOSKELETAL: Muscle strength and tone normal. SPINE: No scoliosis or deformity SKIN: No rashes CENTRAL NERVOUS SYSTEM: Alert and oriented -2. No focal deficits, tone is norm al in all 4 extremities. PSYCHIATRIC: Alert and oriented -2. Appropriate affect. Intact judgment and insight. - Labs CBC & Chem 7: 12/17/21 07:31 12/17/21 07:30 Labs: Abnormal Lab Results - Last 24 Hours (Table) 12/16/21 12/17/2112/17/22 Range/Units 17:29 00:14 07:30 WBC (4.50-10.00) X 10*3/uL RBC (4.10-5.20) X 10*6/uL Hgb (12.0-15.0) g/dL Hct (37.2-46.3) % MCHC (32.0-37.0) g/dL RDW (11.5-14.5) % Absolute Nucleated RBC (0.00-0.00) X 10*3/uL Myelocytes % (0-0) % Neutrophils # (Manual) (2.00-8.90) X 10*3/uL Lymphocytes # (Manual) (0.90-5.00) X 10*3/uL Eosinophils # (Manual) (0.04-0.35) X 10*3/uL NRBC/100 WBC Diff (0.0-0.0) /100 WBCS Potassium 2.9 L (3.5-5.1) mmol/L Chloride 108 H (98-107) mmol/L BUN 59 H (7-17) mg/dL Creatinine 2.60 H (0.52-1.04) mg/dL POC Glucose (mg/dL) 123 H 108 H (75-99) mg/dL Calcium 8.2 L (8.4-10.2) mg/dL AST 92 H (14-36) U/L ALT 70 H (4-34) U/L Alkaline Phosphatase 31 L (38-126) U/L Total Protein 5.0 L (6.3-8.2) g/dL Albumin 2.5 L (3.5-5.0) g/dL 12/17/21 12/17/21 12/17/21 Range/Units 07:31 11:24 12:30 WBC 10.39 H (4.50-10.00) X 10*3/uL RBC 2.60 L (4.10-5.20) X 10*6/uL Hgb 7.4 L (12.0-15.0) g/dL Hct 25.2 L (37.2-46.3) % MCHC 29.4 L (32.0-37.0) g/dL RDW 16.0 H (11.5-14.5) % Absolute Nucleated RBC 0.02 H (0.00-0.00) X 10*3/uL Myelocytes % 4 H (0-0) % Neutrophils # (Manual) 9.25 H (2.00-8.90) X 10*3/uL Lymphocytes # (Manual) 0.42 L (0.90-5.00) X 10*3/uL Eosinophils # (Manual) 0 L (0.04-0.35) X 10*3/uL NRBC/100 WBC Diff 0.2 H (0.0-0.0) /100 WBCS Potassium (3.5-5.1) mmol/L Chloride (98-107) mmol/L BUN (7-17) mg/dL Creatinine (0.52-1.04) mg/dL POC Glucose (mg/dL) 108 H 106 H (75-99) mg/dL Calcium (8.4-10.2) mg/dL AST (14-36) U/L ALT (4-34) U/L Alkaline Phosphatase (38-126) U/L Total Protein (6.3-8.2) g/dL Albumin (3.5-5.0) g/dL Microbiology - Last 24 Hours (Table) 12/12/21 16:37 Blood Culture - Preliminary Blood No Growth after 96 hours Assessment and Plan Plan: Assessment: #1. Acute abdominal pain related to strangulated ventral hernia with bowel is chemia and perforation, status post exploratory laparotomy and small bowel resection, and second look exploratory laparotomy with further bowel resection. Patient had ileocolic anastomosis. Has a wound VAC in place. Initial surgery was on all 12/09/2021, and patient was taken back to the OR on all 12/11/2021 #2. Routine postoperative ventilator management, successful wean and extubation on 12/14/2021 #3. Acute kidney injury was started on hemodialysis on December 12 #4. History of chronic A. fib #5. History of DVT #6. History of hypertension #7. History of pulmonary embolism #8. History of prostatitis #9. History of uterine cancer #10. History of gout #11. History of chronic disease #12. Presents of MTH far mutation #13. Morbid obesity with BMI of 59.4 kg/m #14. History of systolic CHF with ejection fraction of 30-35% #15. History of COVID 19 pneumonia in August 2019 Plan: Continue antibiotics per ID service recommendations Patient denies any worsening dyspnea Maintain aspiration precautions Provide incentive spirometer GI and DVT prophylaxis Dietary recommendations per surgery Continue monitoring labs, including white count, electrolytes and renal profile I have personally seen and examined the patient, performed the documentation and the assessment and plan as written. Number of minutes spent on the visit: [10] Time with Patient: Less than 30 <Janet Bauman - Last Filed: 12/17/21 18:17> Objective - Vital Signs Vital signs: Vital Signs Temp 97.8 F 12/17/21 18:07 Pulse 98 12/17/21 18:07 Resp 20 12/17/21 18:07 BP 112/69 12/17/21 18:07 Pulse Ox 99 12/17/21 12:48 Intake & Output 12/16/21 12/17/21 12/17/21 18:59 06:59 18:59 Intake Total 790 700 300 Output Total 793 007 6169 Balance -40 100 -1000 Weight 147.4 kg Intake: IV 140 LR 40 Mvi, Adult No.4 with Vit 100 K 10 ml Trace (Conc-1Ml/ Dose) 1 ml Sodium Chloride 4Meq/ml Vial 48 meq Potassium Acetate 10 meq Magnesium Sulfate gm 0.5 gm Calcium Gluconate 1 gm In Amino Acids 5 %/ Dextrose 20 % 1,000 ml @ 50 mls/hr IV .BY D[facility]ATION [facility] Rx#:[id number] Intake, IV Titration 650 700 Amount Parenteral Electrolytes 450 600 20 ml In Amino Acids 5 %/ Dextrose 20 % 1,000 ml @ 50 mls/hr IV .BY DURATION [facility] Rx#:[id number] Piperacillin-Tazobactam 3 100 100 .375 gm In Sodium Chloride 0.9% 100 ml @ 25 mls/hr IVPB Q12H [facility] Rx# :[id number] Potassium Chloride 20 meq 100 In Water For Injection 1 100ml.bag @ 50 mls/hr IVPB Q2H [facility] Rx#: [id number] Hemodialysis 300 Output: Drainage 580 100 Abdomen 450 Left Lower Abdomen 130 100 Urine 250 500 Hemodialysis 1300 Other: Voiding Method Indwelling Catheter Indwelling Catheter Indwelling Catheter # Bowel Movements 1 ABP, PAP, CO, CI - Last Documented Arterial Blood Pressure 136/60 - Labs CBC & Chem 7: 12/17/21 07:31 12/17/21 07:30 Labs: Abnormal Lab Results - Last 24 Hours (Table) 12/17/21 12/17/21 12/17/21 Range/Units 00:14 07:30 07:30 WBC (4.50-10.00) X 10*3/uL RBC (4.10-5.20) X 10*6/uL Hgb (12.0-15.0) g/dL Hct (37.2-46.3) % MCHC (32.0-37.0) g/dL RDW (11.5-14.5) % Absolute Nucleated RBC (0.00-0.00) X 10*3/uL Myelocytes % (0-0) % Neutrophils # (Manual) (2.00-8.90) X 10*3/uL Lymphocytes # (Manual) (0.90-5.00) X 10*3/uL Eosinophils # (Manual) (0.04-0.35) X 10*3/uL NRBC/100 WBC Diff (0.0-0.0) /100 WBCS Potassium 2.9 L (3.5-5.1) mmol/L Chloride 108 H (98-107) mmol/L BUN 59 H (7-17) mg/dL Creatinine 2.60 H (0.52-1.04) mg/dL POC Glucose (mg/dL) 108 H (75-99) mg/dL Calcium 8.2 L (8.4-10.2) mg/dL Iron 43 L (50-170) ug/dL Transferrin 201.0 L (204.0-354.0) mg/dL AST 92 H (14-36) U/L ALT 70 H (4-34) U/L Alkaline Phosphatase 31 L (38-126) U/L Total Protein 5.0 L (6.3-8.2) g/dL Albumin 2.5 L (3.5-5.0) g/dL 12/17/21 12/17/21 12/17/21 Range/Units 07:31 11:24 12:30 WBC 10.39 H (4.50-10.00) X 10*3/uL RBC 2.60 L (4.10-5.20) X 10*6/uL Hgb 7.4 L (12.0-15.0) g/dL Hct 25.2 L (37.2-46.3) % MCHC 29.4 L (32.0-37.0) g/dL RDW 16.0 H (11.5-14.5) % Absolute Nucleated RBC 0.02 H (0.00-0.00) X 10*3/uL Myelocytes % 4 H (0-0) % Neutrophils # (Manual) 9.25 H (2.00-8.90) X 10*3/uL Lymphocytes # (Manual) 0.42 L (0.90-5.00) X 10*3/uL Eosinophils # (Manual) 0 L (0.04-0.35) X 10*3/uL NRBC/100 WBC Diff 0.2 H (0.0-0.0) /100 WBCS Potassium (3.5-5.1) mmol/L Chloride (98-107) mmol/L BUN (7-17) mg/dL Creatinine (0.52-1.04) mg/dL POC Glucose (mg/dL) 108 H 106 H (75-99) mg/dL Calcium (8.4-10.2) mg/dL Iron (50-170) ug/dL Transferrin (204.0-354.0) mg/dL AST (14-36) U/L ALT (4-34) U/L Alkaline Phosphatase (38-126) U/L Total Protein (6.3-8.2) g/dL Albumin (3.5-5.0) g/dL Microbiology - Last 24 Hours (Table) 12/12/21 16:37 Blood Culture - Preliminary Blood No Growth after 96 hours Assessment and Plan Plan: I have personally seen and examined the patient and reviewed the documentation. I performed a joint evaluation with the nurse practitioner in this evaluation was done more than 20 minutes. I fully agree with the documentation above and the plan of care.
[2021-12-17 15:32] LABS: % Iron Saturation 15.17 (12.00-45.00)
[2021-12-17 17:38] LABS: Glucose,Whole Blood 90 mg/dL (75-99)
[2021-12-17] MEDS: METOPROLOL TARTRATE 25 MG TAB PO SCH (21:29)
--- NOTE | 2021-12-17 22:41 | P.PN ---
Subjective Progress Note Date: 12/16/21 Principal diagnosis: Abdominal sepsis Patient is a 71 year female admitted to the hospital with abdominal pain has been diagnosis stimulated went hernia with ischemic bowel and perforation in this patient who is status post initial surgery with reduction of hernia and resection of the ischemic portion of small bowel patient was taken back to the OR on 12/12/2021 and the patient is status post [id number] antimesenteric ileocolonic anastomosis with closure of mesenteric defect and application of wound VAC. On today's evaluation that is 12/16/2021, the patient is afebrile, the patient is hemodynamically stable not requiring pressor support, the patient has been m shirin out of VAC, patient is currently lethargic and unable to afford any history no vomiting or diarrhea has been reported by the nursing staff Objective - Vital Signs Vital signs: Vital Signs Temp 97.7 F 12/16/21 08:00 Pulse 78 12/16/21 08:00 Resp 16 12/16/21 08:00 BP 154/76 12/16/21 08:00 Pulse Ox 98 12/16/21 08:00 Intake & Output 12/15/21 12/16/21 12/16/21 17:59 06:59 18:59 Intake Total 440 Output Total 570 Balance -130 Weight Intake: IV 140 LR 40 Mvi, Adult No.4 with Vit 100 K 10 ml Trace (Conc-1Ml/ Dose) 1 ml Sodium Chloride 4Meq/ml Vial 48 meq Potassium Acetate 10 meq Magnesium Sulfate gm 0.5 gm Calcium Gluconate 1 gm In Amino Acids 5 %/ Dextrose 20 % 1,000 ml @ 50 mls/hr IV .BY D[facility] Rx#:[id number] Piperacillin-Tazobactam 3 .375 gm In Sodium Chloride 0.9% 100 ml @ 25 mls/hr IVPB Q12H [facility] Rx# :[id number] Pressure Bag Intake, IV Titration 300 Amount Parenteral Electrolytes 200 20 ml In Amino Acids 5 %/ Dextrose 20 % 1,000 ml @ 50 mls/hr IV .BY DURATION [facility] Rx#:[id number] Potassium Chloride 20 meq 100 In Water For Injection 1 100ml.bag @ 50 mls/hr IVPB Q2H [facility] Rx#: [id number] Sodium Chloride 4Meq/ml Vial 48 meq Potassium Acetate 10 meq Magnesium Sulfate gm 0.5 gm Calcium Gluconate 1 gm In Amino Acids 5 %/Dextrose 20 % 1 ,000 ml @ 50 mls/hr IV . BY DURATION [facility] Rx#: [id number] Hemodialysis Output: Drainage 520 Abdomen 450 Left Lower Abdomen 70 Urine 50 Hemodialysis Other: Voiding Method Indwelling Catheter ABP, PAP, CO, CI - Last Documented Arterial Blood Pressure 136/60 - Exam GENERAL DESCRIPTION: An elderly female lying in bed RESPIRATORY SYSTEM: Unlabored breathing , decreased breath sounds at bases HEART: S1 S2 regular rate and rhythm , ABDOMEN: Soft , midline abdominal wound is covered with a wound VAC EXTREMITIES: No edema feet - Labs CBC & Chem 7: 12/17/21 07:31 12/17/21 07:30 Labs: Abnormal Lab Results - Last 24 Hours (Table) 12/15/21 12/15/21 12/16/21 Range/Units 17:42 23:24 05:18 RBC (3.80-5.40) m/uL Hgb (11.4-16.0) gm/dL Hct (34.0-46.0) % RDW (11.5-15.5) % Lymphocytes # (1.0-4.8) k/uL Sodium 135 L (137-145) mmol/L Potassium 3.3 L (3.5-5.1) mmol/L BUN 41 H (7-17) mg/dL Creatinine 2.05 H (0.52-1.04) mg/dL Glucose 128 H (74-99) mg/dL POC Glucose (mg/dL) 120 H 145 H (75-99) mg/dL Calcium 8.0 L (8.4-10.2) mg/dL AST 68 H (14-36) U/L Alkaline Phosphatase 27 L (38-126) U/L Total Protein 4.9 L (6.3-8.2) g/dL Albumin 2.5 L (3.5-5.0) g/dL 12/16/21 12/16/21 12/16/21 Range/Units 05:18 05:59 12:19 RBC 2.62 L (3.80-5.40) m/uL Hgb 7.9 L (11.4-16.0) gm/dL Hct 25.4 L (34.0-46.0) % RDW 16.7 H (11.5-15.5) % Lymphocytes # 0.7 L (1.0-4.8) k/uL Sodium (137-145) mmol/L Potassium (3.5-5.1) mmol/L BUN (7-17) mg/dL Creatinine (0.52-1.04) mg/dL Glucose (74-99) mg/dL POC Glucose (mg/dL) 138 H 141 H (75-99) mg/dL Calcium (8.4-10.2) mg/dL AST (14-36) U/L Alkaline Phosphatase (38-126) U/L Total Protein (6.3-8.2) g/dL Albumin (3.5-5.0) g/dL Microbiology - Last 24 Hours (Table) 12/12/21 16:37 Blood Culture - Preliminary Blood No Growth after 72 hours Assessment and Plan (1) Sepsis Current Visit: Yes Status: Acute Code(s): A41.9 - SEPSIS, UNSPECIFIED ORGANISM SNOMED Code(s): 46484061 Plan: 1patient presented to hospital with abdominal pain and did have evidence of elevated white count tachycardia meeting criteria for sepsis sources incarcerated abdominal hernia with perforated small bowel status post resection and need to cover for the enteric gram-negative with a likely pathogen. 2patient is afebrile white count is normalized, Zosyn will be restarted as it was earlier discontinued by pulmonary, family the bedside questions were answered Time with Patient: Less than 30
--- NOTE | 2021-12-17 22:43 | P.PN ---
Subjective Progress Note Date: 12/17/21 Principal diagnosis: Abdominal sepsis Patient is a 71 year female admitted to the hospital with abdominal pain has been diagnosis stimulated went hernia with ischemic bowel and perforation in this patient who is status post initial surgery with reduction of hernia and resection of the ischemic portion of small bowel patient was taken back to the OR on 12/12/2021 and the patient is status post [id number] antimesenteric ileocolonic anastomosis with closure of mesenteric defect and application of wound VAC. On today's evaluation that is 12/17/2021, the patient remains to be afebrile, the patient is slightly more awake and alert today patient denies having any gris st pain shortness of breath or cough has been complaining of diarrhea and no vomiting has been reported Objective - Vital Signs Vital signs: Vital Signs Temp 98.2 F 12/17/21 12:48 Pulse 99 12/17/21 12:48 Resp 16 12/17/21 12:48 BP 137/77 12/17/21 12:48 Pulse Ox 99 12/17/21 12:48 Intake & Output 12/16/21 12/17/21 12/17/21 18:59 06:59 18:59 Intake Total 790 700 Output Total 830 600 Balance -40 100 Weight 147.4 kg Intake: IV 140 LR 40 Mvi, Adult No.4 with Vit 100 K 10 ml Trace (Conc-1Ml/ Dose) 1 ml Sodium Chloride 4Meq/ml Vial 48 meq Potassium Acetate 10 meq Magnesium Sulfate gm 0.5 gm Calcium Gluconate 1 gm In Amino Acids 5 %/ Dextrose 20 % 1,000 ml @ 50 mls/hr IV .BY [facility] Rx#:[id number] Intake, IV Titration 650 700 Amount Parenteral Electrolytes 450 600 20 ml In Amino Acids 5 %/ Dextrose 20 % 1,000 ml @ 50 mls/hr IV .BY DURATION [facility] Rx#:[id number] Piperacillin-Tazobactam 3 100 100 .375 gm In Sodium Chloride 0.9% 100 ml @ 25 mls/hr IVPB Q12H [facility] Rx# :[id number] Potassium Chloride 20 meq 100 In Water For Injection 1 100ml.bag @ 50 mls/hr IVPB Q2H [facility] Rx#: [id number] Output: Drainage 580 100 Abdomen 450 Left Lower Abdomen 130 100 Urine 250 500 Other: Voiding Method Indwelling Catheter Indwelling Catheter Indwelling Catheter # Bowel Movements 1 ABP, PAP, CO, CI - Last Documented Arterial Blood Pressure 136/60 - Exam GENERAL DESCRIPTION: An elderly female lying in bed RESPIRATORY SYSTEM: Unlabored breathing , decreased breath sounds at bases HEART: S1 S2 regular rate and rhythm , ABDOMEN: Soft , midline abdominal wound is covered with a wound VAC EXTREMITIES: No edema feet - Labs CBC & Chem 7: 12/17/21 07:31 12/17/21 07:30 Labs: Abnormal Lab Results - Last 24 Hours (Table) 12/16/21 12/17/21 12/17/21 Range/Units 17:29 00:14 07:30 WBC (4.50-10.00) X 10*3/uL RBC (4.10-5.20) X 10*6/uL Hgb (12.0-15.0) g/dL Hct (37.2-46.3) % MCHC (32.0-37.0) g/dL RDW (11.5-14.5) % Absolute Nucleated RBC (0.00-0.00) X 10*3/uL Myelocytes % (0-0) % Neutrophils # (Manual) (2.00-8.90) X 10*3/uL Lymphocytes # (Manual) (0.90-5.00) X 10*3/uL Eosinophils # (Manual) (0.04-0.35) X 10*3/uL NRBC/100 WBC Diff (0.0-0.0) /100 WBCS Potassium 2.9 L (3.5-5.1) mmol/L Chloride 108 H (98-107) mmol/L BUN 59 H (7-17) mg/dL Creatinine 2.60 H (0.52-1.04) mg/dL POC Glucose (mg/dL) 123 H 108 H (75-99) mg/dL Calcium 8.2 L (8.4-10.2) mg/dL Iron (50-170) ug/dL Transferrin (204.0-354.0) mg/dL AST 92 H (14-36) U/L ALT 70 H (4-34) U/L Alkaline Phosphatase 31 L (38-126) U/L Total Protein 5.0 L (6.3-8.2) g/dL Albumin 2.5 L (3.5-5.0) g/dL 12/17/21 12/17/21 12/17/21 Range/Units 07:30 07:31 11:24 WBC 10.39 H (4.50-10.00) X 10*3/uL RBC 2.60 L (4.10-5.20) X 10*6/uL Hgb 7.4 L (12.0-15.0) g/dL Hct 25.2 L (37.2-46.3) % MCHC 29.4 L (32.0-37.0) g/dL RDW 16.0 H (11.5-14.5) % Absolute Nucleated RBC 0.02 H (0.00-0.00) X 10*3/uL Myelocytes % 4 H (0-0) % Neutrophils # (Manual) 9.25 H (2.00-8.90) X 10*3/uL Lymphocytes # (Manual) 0.42 L (0.90-5.00) X 10*3/uL Eosinophils # (Manual) 0 L (0.04-0.35) X 10*3/uL NRBC/100 WBC Diff 0.2 H (0.0-0.0) /100 WBCS Potassium (3.5-5.1) mmol/L Chloride (98-107) mmol/L BUN (7-17) mg/dL Creatinine (0.52-1.04) mg/dL POC Glucose (mg/dL) 108 H (75-99) mg/dL Calcium (8.4-10.2) mg/dL Iron 43 L (50-170) ug/dL Transferrin 201.0 L (204.0-354.0) mg/dL AST (14-36) U/L ALT (4-34) U/L Alkaline Phosphatase (38-126) U/L Total Protein (6.3-8.2) g/dL Albumin (3.5-5.0) g/dL 12/17/21 Range/Units 12:30 WBC (4.50-10.00) X 10*3/uL RBC (4.10-5.20) X 10*6/uL Hgb (12.0-15.0) g/dL Hct (37.2-46.3) % MCHC (32.0-37.0) g/dL RDW (11.5-14.5) % Absolute Nucleated RBC (0.00-0.00) X 10*3/uL Myelocytes % (0-0) % Neutrophils # (Manual) (2.00-8.90) X 10*3/uL Lymphocytes # (Manual) (0.90-5.00) X 10*3/uL Eosinophils # (Manual) (0.04-0.35) X 10*3/uL NRBC/100 WBC Diff (0.0-0.0) /100 WBCS Potassium (3.5-5.1) mmol/L Chloride (98-107) mmol/L BUN (7-17) mg/dL Creatinine (0.52-1.04) mg/dL POC Glucose (mg/dL) 106 H (75-99) mg/dL Calcium (8.4-10.2) mg/dL Iron (50-170) ug/dL Transferrin (204.0-354.0) mg/dL AST (14-36) U/L ALT (4-34) U/L Alkaline Phosphatase (38-126) U/L Total Protein (6.3-8.2) g/dL Albumin (3.5-5.0) g/dL Microbiology - Last 24 Hours (Table) 12/12/21 16:37 Blood Culture - Preliminary Blood No Growth after 96 hours Assessment and Plan (1) Sepsis Current Visit: Yes Status: Acute Code(s): A41.9 - SEPSIS, UNSPECIFIED ORGANISM SNOMED Code(s): 64151602 Plan: 1patient presented to hospital with abdominal pain and did have evidence of elevated white count tachycardia meeting criteria for sepsis sources incarce rated abdominal hernia with perforated small bowel status post resection and need to cover for the enteric gram-negative with a likely pathogen, patient is currently covered with Zosyn will be continued while waiting for the oral activity to improve before transitioning her to oral antibiotics Time with Patient: Less than 30
[2021-12-17 23:08] LABS: Glucose,Whole Blood 111 mg/dL (75-99)
[2021-12-18 00:12] LABS: Glucose,Whole Blood 113 mg/dL (75-99)
[2021-12-18] MEDS: HEPARIN SODIUM,PORCINE/PF 5,000 UNIT/0.5 ML SYRINGE SQ SCH ×4 (00:13→23:49)
[2021-12-18] MEDS: INSULIN ASPART (NovoLOG) 100 UNIT/ML VIAL SQ SCH ×5 (00:14→23:58)
[2021-12-18] MEDS ORDERED: LOPERAMIDE 2 MG CAP PO PRN (00:45)
[2021-12-18 02:01] LABS: Magnesium 1.9 mg/dL (1.6-2.3); Potassium 3.3 mmol/L (3.5-5.1)
[2021-12-18] MEDS: 1: MVI, ADULT NO.4 WITH VIT K 10 ML, TRACE (CONC-1ML/DOSE) 1 ML, PARENTERAL ELECTROLYTES IV SCH ×14 (04:54→23:58)
[2021-12-18 05:54] LABS: Glucose,Whole Blood 110 mg/dL (75-99)
[2021-12-18] MEDS: PIPERACILLIN-TAZOBACTAM 3.375 GM in SODIUM CHLORIDE 0.9% 100 ML IVPB SCH ×2 (05:54→17:26)
[2021-12-18 08:31] LABS: Calcium 7.7 mg/dL (8.4-10.2); Magnesium 1.9 mg/dL (1.6-2.3); Phosphorus 3.9 mg/dL (2.5-4.5); Potassium 3.2 mmol/L (3.5-5.1)
[2021-12-18] MEDS: METOPROLOL TARTRATE 25 MG TAB PO SCH ×2 (09:04→20:33)
[2021-12-18] MEDS: PANTOPRAZOLE 40 MG/10 ML VIAL IV SCH (09:04)
[2021-12-18] MEDS: FUROSEMIDE 10 MG/ML 10 ML VIAL IV SCH ×2 (09:04→20:33)
--- NOTE | 2021-12-18 09:58 | P.PN ---
Subjective Patient is seen in follow-up for acute kidney injury on chronic kidney disease. Started on hemodialysis 12/12/2021. Receiving TPN. Now tolerating oral intake. Urine output documented as 1.3 L yesterday. Patient is resting in bed. Blood pressure stable. On 2 L nasal cannula. Appears more confused today. Vital signs are stable. General: Awake. HEENT: Nasal cannula. LUNGS: Breath sounds decreased. HEART: Rate and Rhythm are regular. ABDOMEN: No distention noted. EXTREMITITES: Trace edema. Objective - Vital Signs Vital signs: Vital Signs Temp 97.9 F 12/18/21 04:00 Pulse 91 12/18/21 04:00 Resp 18 12/18/21 04:00 BP 115/55 12/18/21 04:00 Pulse Ox 99 12/18/21 04:00 Intake & Output 12/17/21 12/18/21 12/18/21 18:59 06:59 18:59 Intake Total 1100 500 Output Total 1300 1460 Balance -200 -960 Weight 147.4 kg 137.5 kg Intake: Intake, IV Titration 800 500 Amount Mvi, Adult No.4 with Vit 400 K 10 ml Trace (Conc-1Ml/ Dose) 1 ml Parenteral Electrolytes 20 ml Potassium Chloride 20 meq In Amino Acids 5 %/ Dextrose 20 % 1,000 ml @ 50 mls/hr IV .BY DURATION [facility] Rx#:[id number] Parenteral Electrolytes 600 20 ml Potassium Chloride 20 meq In Amino Acids 5 % /Dextrose 20 % 1,000 ml @ 50 mls/hr IV .BY DURATION [facility] Rx#: [id number] Piperacillin-Tazobactam 3 100 100 .375 gm In Sodium Chloride 0.9% 100 ml @ 25 mls/hr IVPB Q12H [facility] Rx# :[id number] Potassium Chloride 20 meq 100 In Water For Injection 1 100ml.bag @ 50 mls/hr IVPB ONCE ONE Rx#: [id number] Hemodialysis 300 Output: Drainage 110 Abdomen 20 Left Lower Abdomen 90 Urine 1350 Hemodialysis 1300 Other: Voiding Method Indwelling Catheter Indwelling Catheter # Bowel Movements 1 ABP, PAP, CO, CI - Last Documented Arterial Blood Pressure 136/60 - Labs CBC & Chem 7: 12/17/21 07:31 12/18/21 07:24 Labs: Abnormal Lab Results - Last 24 Hours (Table) 12/17/21 12/17/2122 Range/Units 07:30 07:31 11:24 WBC 10.39 H (4.50-10.00) X 10*3/uL RBC 2.60 L (4.10-5.20) X 10*6/uL Hgb 7.4 L (12.0-15.0) g/dL Hct 25.2 L (37.2-46.3) % MCHC 29.4 L (32.0-37.0) g/dL RDW 16.0 H (11.5-14.5) % Absolute Nucleated RBC 0.02 H (0.00-0.00) X 10*3/uL Myelocytes % 4 H (0-0) % Neutrophils # (Manual) 9.25 H (2.00-8.90) X 10*3/uL Lymphocytes # (Manual) 0.42 L (0.90-5.00) X 10*3/uL Eosinophils # (Manual) 0 L (0.04-0.35) X 10*3/uL NRBC/100 WBC Diff 0.2 H (0.0-0.0) /100 WBCS Sodium (137-145) mmol/L Potassium (3.5-5.1) mmol/L BUN (7-17) mg/dL Creatinine (0.52-1.04) mg/dL Glucose (74-99) mg/dL POC Glucose (mg/dL) 108 H (75-99) mg/dL Calcium (8.4-10.2) mg/dL Iron 43 L (50-170) ug/dL Transferrin 201.0 L (204.0-354.0) mg/dL 12/17/21 12/17/21 12/18/21 Range/Units 12:30 23:07 00:11 WBC (4.50-10.00) X 10*3/uL RBC (4.10-5.20) X 10*6/uL Hgb (12.0-15.0) g/dL Hct (37.2-46.3) % MCHC (32.0-37.0) g/dL RDW (11.5-14.5) % Absolute Nucleated RBC (0.00-0.00) X 10*3/uL Myelocytes % (0-0) % Neutrophils # (Manual) (2.00-8.90) X 10*3/uL Lymphocytes # (Manual) (0.90-5.00) X 10*3/uL Eosinophils # (Manual) (0.04-0.35) X 10*3/uL NRBC/100 WBC Diff (0.0-0.0) /100 WBCS Sodium (137-145) mmol/L Potassium (3.5-5.1) mmol/L BUN (7-17) mg/dL Creatinine (0.52-1.04) mg/dL Glucose (74-99) mg/dL POC Glucose (mg/dL) 106 H 111 H 113 H (75-99) mg/dL Calcium (8.4-10.2) mg/dL Iron (50-170) ug/dL Transferrin (204.0-354.0) mg/dL 12/18/21 12/18/21 12/18/21 Range/Units 00:55 05:53 07:24 WBC (4.50-10.00) X 10*3/uL RBC (4.10-5.20) X 10*6/uL Hgb (12.0-15.0) g/dL Hct (37.2-46.3) % MCHC (32.0-37.0) g/dL RDW (11.5-14.5) % Absolute Nucleated RBC (0.00-0.00) X 10*3/uL Myelocytes % (0-0) % Neutrophils # (Manual) (2.00-8.90) X 10*3/uL Lymphocytes # (Manual) (0.90-5.00) X 10*3/uL Eosinophils # (Manual) (0.04-0.35) X 10*3/uL NRBC/100 WBC Diff (0.0-0.0) /100 WBCS Sodium 136 L (137-145) mmol/L Potassium 3.3 L 3.2 L (3.5-5.1) mmol/L BUN 53 H (7-17) mg/dL Creatinine 2.05 H (0.52-1.04) mg/dL Glucose 104 H (74-99) mg/dL POC Glucose (mg/dL) 110 H (75-99) mg/dL Calcium 7.7 L (8.4-10.2) mg/dL Iron (50-170) ug/dL Transferrin (204.0-354.0) mg/dL Microbiology - Last 24 Hours (Table) 12/12/21 16:37 Blood Culture - Preliminary Blood No Growth after 120 hours Assessment and Plan Plan: Assessment: 1. Acute kidney injury secondary to ATN secondary to hypotension/shock. Started on hemodialysis 12/12/2021. Has a right femoral catheter. 2. Chronic kidney disease stage IV secondary to cardiorenal syndrome with baseline creatinine in the range of 2-2.5. UA benign. No hydronephrosis noted on CAT scan. 3. 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 Further resection done 12/11/2021 and 12/12/2021. 4. Acute on chronic systolic CHF with ejection fraction of 40-45%. 5. Hypokalemia from diuresis. 6. Anemia of chronic kidney disease. Iron deficiency noted. 7. A. fib with RVR. Cardiology following. Plan: Hold hemodialysis today. Potassium being replaced. Also receiving potassium with TPN. Strict I's and O's. Monitor for renal recovery. Hold off on IV iron due to abdominal infection. Avoid nephrotoxins. Maintain IV Lasix. Add Aranesp. Continue to assess daily for need for renal replacement therapy.
[2021-12-18] MEDS ORDERED: POTASSIUM CHLORIDE 20 MEQ in WATER FOR INJECTION 1 100ML.BAG IVPB ONE (10:00)
[2021-12-18 11:24] LABS: Glucose,Whole Blood 138 mg/dL (75-99)
[2021-12-18] MEDS ORDERED: DARBEPOETIN ALFA 40 MCG/0.4 ML SYRINGE SQ SCH (12:00)
[2021-12-18] MEDS: HYDROmorphone 1 MG/ML 1 ML SYRINGE IVP PRN (13:41)
[2021-12-18] MEDS: ONDANSETRON 4 MG/2 ML VIAL IVP PRN (13:54)
--- NOTE | 2021-12-18 14:55 | P.PN ---
Subjective Progress Note Date: 12/18/21 Pt seen and examined at bedside. Daughter at bedside. Patient is doing well. Rectal tube placed due to some liquid stool. Wound vac in place. Objective - Vital Signs Vital signs: Vital Signs Temp 98.7 F 12/18/21 12:00 Pulse 86 12/18/21 14:00 Resp 18 12/18/21 14:00 BP 105/64 12/18/21 12:00 Pulse Ox 100 12/18/21 12:00 Intake & Output 12/17/21 12/18/21 12/18/21 18:59 06:59 18:59 Intake Total 1100 500 Output Total 1300 1460 645 Balance -200 -960 -645 Weight 147.4 kg 137.5 kg Intake: Intake, IV Titration 800 500 Amount Mvi, Adult No.4 with Vit 400 K 10 ml Trace (Conc-1Ml/ Dose) 1 ml Parenteral Electrolytes 20 ml Potassium Chloride 20 meq In Amino Acids 5 %/ Dextrose 20 % 1,000 ml @ 50 mls/hr IV .BY DURATION [facility] Rx#:[id number] Parenteral Electrolytes 600 20 ml Potassium Chloride 20 meq In Amino Acids 5 % /Dextrose 20 % 1,000 ml @ 50 mls/hr IV .BY DURATION [facility] Rx#: [id number] Piperacillin-Tazobactam 3 100 100 .375 gm In Sodium Chloride 0.9% 100 ml @ 25 mls/hr IVPB Q12H [facility] Rx# :[id number] Potassium Chloride 20 meq 100 In Water For Injection 1 100ml.bag @ 50 mls/hr IVPB ONCE ONE Rx#: [id number] Hemodialysis 300 Output: Drainage 110 20 Abdomen 20 0 Left Lower Abdomen 90 20 Urine 1350 625 Hemodialysis 1300 Other: Voiding Method Indwelling Catheter Indwelling Catheter Indwelling Catheter # Bowel Movements 1 ABP, PAP, CO, CI - Last Documented Arterial Blood Pressure 136/60 - Constitutional General appearance: Present: cooperative - Respiratory Details: no difficulty with respiration - Psychiatric Psychiatric: Present: A&O x's 3 - Labs CBC & Chem 7: 12/17/21 07:31 12/18/21 07:24 Labs: Abnormal Lab Results - Last 24 Hours (Table) 12/17/21 12/17/21 12/18/21 Range/Units 07:30 23:07 00:11 Sodium (137-145) mmol/L Potassium (3.5-5.1) mmol/L BUN (7-17) mg/dL Creatinine (0.52-1.04) mg/dL Glucose (74-99) mg/dL POC Glucose (mg/dL) 111 H 113 H (75-99) mg/dL Calcium (8.4-10.2) mg/dL Iron 43 L (50-170) ug/dL Transferrin 201.0 L (204.0-354.0) mg/dL 12/18/21 12/18/21 12/18/21 Range/Units 00:55 05:53 07:24 Sodium 136 L (137-145) mmol/L Potassium 3.3 L 3.2 L (3.5-5.1) mmol/L BUN 53 H (7-17) mg/dL Creatinine 2.05 H (0.52-1.04) mg/dL Glucose 104 H (74-99) mg/dL POC Glucose (mg/dL) 110 H (75-99) mg/dL Calcium 7.7 L (8.4-10.2) mg/dL Iron (50-170) ug/dL Transferrin (204.0-354.0) mg/dL 12/18/21 Range/Units 11:22 Sodium (137-145) mmol/L Potassium (3.5-5.1) mmol/L BUN (7-17) mg/dL Creatinine (0.52-1.04) mg/dL Glucose (74-99) mg/dL POC Glucose (mg/dL) 138 H (75-99) mg/dL Calcium (8.4-10.2) mg/dL Iron (50-170) ug/dL Transferrin (204.0-354.0) mg/dL Microbiology - Last 24 Hours (Table) 12/12/21 16:37 Blood Culture - Preliminary Blood No Growth after 120 hours Assessment and Plan Plan: 71-year-old female that presented with a strangulated ventral hernia with bowel ischemia and perforation. She initially underwent an exploratory laparotomy and small bowel resection with discontinuity and Apthera placement with plan for second look for further evaluation of any demarcation of the bowel secondary to ischemic changes. Second look exploratory laparotomy required further bowel resection. Third look was also performed in which patient did have an ileocolic anastomosis created. Wound VAC was applied over the wound. Patient has been transferred to the floor. She was evaluated by speech therapy and recommendation is for pured diet. We will begin the pured diet and begin tapering the TPN. Continue with wound VAC. Continue medical management. Plan for wound vac change tomorrow. Dr. Amezcua to resume care tomorrow for surgical management.
--- NOTE | 2021-12-18 15:53 | P.PN ---
Subjective Progress Note Date: 12/18/21 On today's evaluation of 12/18/2021, the patient is being seen for a follow-up. The patient remains nothing by mouth and the patient is receiving TPN for nutritional support. Wound VAC still applied to the anterior abdominal wall and there is considerable amount of drainage. At the same time, the patient has been placed nothing by mouth. She is hemodynamically stable. She is on 2 L of oxygen by nasal cannula. No respiratory difficulties. She has developed an acute kidney injury and the patient is currently on hemodialysis in the first on the case. Her comorbid is of extensive as discussed earlier. On today's evaluation, the patient's sodium is at 136 with a potassium level of 3.2, creatinine is down to 2.05 with a BUN of 53 and a serum bicarb is 25. Patient has a fecal management system as the patient is producing liquidy stool. Nevertheless, stool for C. diff has been negative. The patient is afebrile. In general, the patient is doing well. She is hemodynamically stable at this point in time. Noted the patient has extensive surgery for Estring related to ventral hernia with bowel ischemia perforation. The patient underwent expiratory laparotomy and small bowel resection. A second look that was done by the general surgeon showed no ongoing ischemic changes. The patient has a wound VAC in place for now. At the same time, the patient is being considered for some. He diet to begin as we're tapering the TPN for now. His of her renal function, the patient developed an acute kidney injury on top of chronic kidney disease. She was started on hemodialysis 12/12/2021. The patient's past producing urine output of 1.3 this 40 yesterday. She is resting comfortably in bed. She is on O2 at 2 L. Her mentation to me sound to be appropriate. I was told that her mentation is excellent and waning. She does have a right femoral catheter for hemodialysis. Her diabetes is currently on hold and the potassium level is being replaced and the findings on the case. She is on IV Lasix and Aranesp was also added regarding chronic anemia. Objective - Vital Signs Vital signs: Vital Signs Temp 98.7 F 12/18/21 12:00 Pulse 86 12/18/21 14:00 Resp 18 12/18/21 14:00 BP 105/64 12/18/21 12:00 Pulse Ox 100 12/18/21 12:00 Intake & Output 12/17/21 12/18/21 12/18/21 18:59 06:59 18:59 Intake Total 1100 500 Output Total 1300 1460 645 Balance -200 -960 -645 Weight 147.4 kg 137.5 kg Intake: Intake, IV Titration 800 500 Amount Mvi, Adult No.4 with Vit 400 K 10 ml Trace (Conc-1Ml/ Dose) 1 ml Parenteral Electrolytes 20 ml Potassium Chloride 20 meq In Amino Acids 5 %/ Dextrose 20 % 1,000 ml @ 50 mls/hr IV .BY DURATION [facility] Rx#:[id number] Parenteral Electrolytes 600 20 ml Potassium Chloride 20 meq In Amino Acids 5 % /Dextrose 20 % 1,000 ml @ 50 mls/hr IV .BY DURATION [facility] Rx#: [id number] Piperacillin-Tazobactam 3 100 100 .375 gm In Sodium Chloride 0.9% 100 ml @ 25 mls/hr IVPB Q12H [facility] Rx# :[id number] Potassium Chloride 20 meq 100 In Water For Injection 1 100ml.bag @ 50 mls/hr IVPB ONCE ONE Rx#: [id number] Hemodialysis 300 Output: Drainage 110 20 Abdomen 20 0 Left Lower Abdomen 90 20 Urine 1350 625 Hemodialysis 1300 Other: Voiding Method Indwelling Catheter Indwelling Catheter Indwelling Catheter # Bowel Movements 1 ABP, PAP, CO, CI - Last Documented Arterial Blood Pressure 136/60 - Exam GENERAL EXAM: Alert, oriented 2, 71-year-old morbidly obese white female on 2 L of oxygen with pulse ox of 97% comfortable in no apparent distress. HEAD: Normocephalic/atraumatic. EYES: Normal reaction of pupils, equal size. Conjunctiva pink, sclera white. NOSE: Clear with pink turbinates. MOUTH: Oral membranes are quite dry THROAT: No erythema or exudates. NECK: No masses, no JVD, no thyroid enlargement, no adenopathy. CHEST: No chest wall deformity. Symmetrical expansion. LUNGS: Equal air entry with no crackles, wheeze, rhonchi or dullness. CVS: Regular rate and rhythm, normal S1 and S2, no gallops, no murmurs, no rubs ABDOMEN: Soft, nontender, midabdominal abdominal wound with wound VAC in place and black foam, to continue suction with moderate amount of serous output. No hepatosplenomegaly, normal bowel sounds, no guarding or rigidity. EXTREMITIES: No clubbing, mild lower extremity edema, no cyanosis, 2+ pulses and upper and lower extremities. Right groin temporary hemodialysis catheter is in place clean dry and intact MUSCULOSKELETAL: Muscle strength and tone normal. SPINE: No scoliosis or deformity SKIN: No rashes CENTRAL NERVOUS SYSTEM: Alert and oriented -2. No focal deficits, tone is normal in all 4 extremities. PSYCHIATRIC: Alert and oriented -2. Appropriate affect. Intact judgment and insight. - Labs CBC & Chem 7: 12/17/21 07:31 12/18/21 07:24 Labs: Abnormal Lab Results - Last 24 Hours (Table) 12/17/21 12/18/21 12/18/21 Range/Units 23:07 00:11 00:55 Sodium (137-145) mmol/L Potassium 3.3 L (3.5-5.1) mmol/L BUN (7-17) mg/dL Creatinine (0.52-1.04) mg/dL Glucose (74-99) mg/dL POC Glucose (mg/dL) 111 H 113 H (75-99) mg/dL Calcium (8.4-10.2) mg/dL 12/18/21 12/18/21 12/18/21 Range/Units 05:53 07:24 11:22 Sodium 136 L (137-145) mmol/L Potassium 3.2 L (3.5-5.1) mmol/L BUN 53 H (7-17) mg/dL Creatinine 2.05 H (0.52-1.04) mg/dL Glucose 104 H (74-99) mg/dL POC Glucose (mg/dL) 110 H 138 H (75-99) mg/dL Calcium 7.7 L (8.4-10.2) mg/dL Microbiology - Last 24 Hours (Table) 12/12/21 16:37 Blood Culture - Preliminary Blood No Growth after 120 hours Assessment and Plan Plan: #1. Acute abdominal pain related to strangulated ventral hernia with bowel ischemia and perforation, status post exploratory laparotomy and small bowel resection, and second look exploratory laparotomy with further bowel resection. Patient had ileocolic anastomosis. Has a wound VAC in place. Initial surgery was on all 12/09/2021, and patient was taken back to the OR on all 12/11/2021 #2. Routine postoperative ventilator management, successful wean and extubation on 12/14/2021 #3. Acute kidney injury was started on hemodialysis on December 12, positive urine output and the patient's creatinine is down to 2.0 #4. History of chronic A. fib #5. History of DVT #6. History of hypertension #7. History of pulmonary embolism #8. History of prostatitis #9. History of uterine cancer #10. History of gout #11. History of chronic disease #12. Presents of MTH far mutation #13. Morbid obesity with BMI of 59.4 kg/m #14. History of systolic CHF with ejection fraction of 30-35% #15. History of COVID 19 pneumonia in August 2019 #16, diarrhea, fecal management system in place and the patient's stool is negative for C. diff Plan: No dialysis for today The patient will be given some pured diet He is able to tolerate diet, details be gradually weaned off Keep oxygen at 2 L Wound VAC to be replaced tomorrow by general surgery Agree on IV Lasix 60 mg IV push every 12 hours Urine output is adequate and the patient is producing 1.3 L of urine output over the past 24 hours The patient is having diarrhea and a fecal management system is in place Continue IV Zosyn Start Imodium on a when necessary basis IV Protonix Still on 2 L of O2 by nasal cannula
--- NOTE | 2021-12-18 15:55 | P.PN ---
Subjective Progress Note Date: 12/18/21 Principal diagnosis: abdominal pain 71-year-old female with a history of A. fib anticoagulated on Coumadin, history of prior pulmonary embolism and DVT with known MTHFR, systolic congestive heart failure with ejection fraction 45-50% (recovered from 30-35%) and chronic kidney disease stage IV following with nephrology on an outpatient basis who presented for abdominal wall hernia that is no longer reducible. On arrival she was found to be tachycardic. Laboratory analysis showed a white blood cell count of 13.8, creatinine was near her baseline at 2.13 consistent with her chronic kidney disease stage IV, glucose was mildly elevated at 153 on the laboratory analysis is otherwise unremarkable. She underwent a CT abdomen and pelvis which demonstrated a large lower anterior abdominal wall ventral hernia containing multiple bowel loops without signs of obstruction. In the emergency department she was started on Zosyn, IV fluids, and pain medications. She was placed in observation for further surgical evaluation. She uses a walker at baseline. She is independent with bathing and dressing as well as meal prep. She does have assistance with cleaning. She has been unable to leave her house. She is unable to walk a full flight of stairs. She denies any recent episodes of chest pain or syncope. Status post exploratory laparotomy, excision of umbilicus and hernia sac, small bowel resection, reduction of ventral hernia and wound VAC placement on December 09 Interval history: 12/12 Patient was seen and examined at the bedside. Still sedated and intubated. Patient was taken to or yesterday she had 220 cm necrotic small bowel removed by general surgery with wound VAC placement. Since yesterday she has required dialysis catheter placement and has started hemodialysis this morning. Chest x- ray shows persistent bilateral infiltrates, laboratory studies show a significant leukocytosis but her pressor requirement is starting to come down, mean arterial pressures are adequate. 12/13 patient was examined at bedside. She is still intubated. She was taken to or yesterday for third expiratory laparotomy she had [id number] ileocolonic anastomosis with closure of mesenteric defect. 12/14 patient was examined at the bedside. Patient still intubated. She is currently off Levophed. Still oliguric urine output is 200 over the past 24 hours. Critical care team planning possible extubation today. 12/15 The patient was successfully extubated yesterday. NG tube remains in place. She is on nasal O2 at 2 L. she had hemodialysis yesterday and today. She is making some urine. Norepinephrine has been weaned off. The patient's on lactated Ringer's at 10 mL an hour. We started TPN at 50 mL an hour. Microbiology is negative. She is awake alert oriented to her name otherwise she seems to be very weak and confused. 12/16 patient was examined at bedside. She is awake alert oriented 2. She denies any chest pain or shortness of breath. She has been transferred out of ICU per critical care team. 12/17 patient was examined at the bedside. She is still alert and oriented 2. She is complaining of generalized weakness. She denies any chest pain or shortness breath. She was transferred out of the ICU overnight. Patient was seen by speech and started on pure diet. 12/18: was having diarrhea according to the nursing staff. Rectal tube had to be inserted. She is very weak and can't even lift her arm up. Objective - Vital Signs Vital signs: Vital Signs Temp 98.7 F 12/18/21 12:00 Pulse 86 12/18/21 14:00 Resp 18 12/18/21 14:00 BP 105/64 12/18/21 12:00 Pulse Ox 100 12/18/21 12:00 Intake & Output 12/17/21 12/18/21 12/18/21 18:59 06:59 18:59 Intake Total 1100 500 Output Total 1300 1460 645 Balance -200 -960 -645 Weight 147.4 kg 137.5 kg Intake: Intake, IV Titration 800 500 Amount Mvi, Adult No.4 with Vit 400 K 10 ml Trace (Conc-1Ml/ Dose) 1 ml Parenteral Electrolytes 20 ml Potassium Chloride 20 meq In Amino Acids 5 %/ Dextrose 20 % 1,000 ml @ 50 mls/hr IV .BY DURATION [facility] Rx#:[id number] Parenteral Electrolytes 600 20 ml Potassium Chloride 20 meq In Amino Acids 5 % /Dextrose 20 % 1,000 ml @ 50 mls/hr IV .BY DURATION [facility] Rx#: [id number] Piperacillin-Tazobactam 3 100 100 .375 gm In Sodium Chloride 0.9% 100 ml @ 25 mls/hr IVPB Q12H [facility] Rx# :[id number] Potassium Chloride 20 meq 100 In Water For Injection 1 100ml.bag @ 50 mls/hr IVPB ONCE ONE Rx#: [id number] Hemodialysis 300 Output: Drainage 110 20 Abdomen 20 0 Left Lower Abdomen 90 20 Urine 1350 625 Hemodialysis 1300 Other: Voiding Method Indwelling Catheter Indwelling Catheter Indwelling Catheter # Bowel Movements 1 ABP, PAP, CO, CI - Last Documented Arterial Blood Pressure 136/60 - Exam General: Awake and oriented 2 Derm: warm, dry Head: atraumatic, normocephalic, symmetric Eyes: EOMI, no lid lag, anicteric sclera Mouth: no lip lesion, mucus membranes moist Cardiovascular: Irregular regular rhythm. A. fib Lungs: CTA bilateral, no rhonchi, no rales , no accessory muscle use Abdominal: Soft without bowel sounds. [address] Abdomen is open Ext: no gross muscle atrophy, no edema, no contractures Neuro: No focal deficit - Labs CBC & Chem 7: 12/17/21 07:31 12/18/21 07:24 Labs: Abnormal Lab Results - Last 24 Hours (Table) 12/17/21 12/18/21 12/18/21 Range/Units 23:07 00:11 00:55 Sodium (137-145) mmol/L Potassium 3.3 L (3.5-5.1) mmol/L BUN (7-17) mg/dL Creatinine (0.52-1.04) mg/dL Glucose (74-99) mg/dL POC Glucose (mg/dL) 111 H 113 H (75-99) mg/dL Calcium (8.4-10.2) mg/dL 12/18/21 12/18/21 12/18/21 Range/Units 05:53 07:24 11:22 Sodium 136 L (137-145) mmol/L Potassium 3.2 L (3.5-5.1) mmol/L BUN 53 H (7-17) mg/dL Creatinine 2.05 H (0.52-1.04) mg/dL Glucose 104 H (74-99) mg/dL POC Glucose (mg/dL) 110 H 138 H (75-99) mg/dL Calcium 7.7 L (8.4-10.2) mg/dL Microbiology - Last 24 Hours (Table) 12/12/21 16:37 Blood Culture - Preliminary Blood No Growth after 120 hours Assessment and Plan Plan: Septic Shock from Small Bowel Necrosis and Perforation Strangulated abdominal wall hernia to the left of the umbilicus containing loops of bowel -December 09 status post exploratory laparotomy, excision of umbilicus hernia sac, small bowel resection, reduction of ventral hernia, and wound VAC placement. -December 11 Second Look laparotomy with abdominal exploration, resection of 220 cm necrotic small bowel segment, right hemicolectomy, temporary abdominal closure with Apthera VAC. -December 12 Third look exploratory laparotomy with [id number] antimesenteric ileocolonic anastomosis with closure of mesenteric defect, fascial block, primary fascial closure, application of negative pressure wound VAC dressing over 20 x 20 x 5 cm midline surgical soft tissue wound. -Infectious disease consulted December 11 -Extubated December 14 -Hold Coumadin until clered by surgery -IV Zosyn per infectious disease -Tapering TPN -Started on pured diet December 17 Acute ventilatory dependent respiratory failure status post extubation December 14 -Resolved. Atrial fibrillation with RVR -anticoagulated with Coumadin at baseline -Lopressor 25 twice a day -Start anticoagulation when it is okay with general surgery Cardiomyopathy with ejection fraction 45-50% -Not chronically on CHARLES inhibitor -Lopressor 25 twice a day and titrate as needed -Continue with tele -cardiology following Acute kidney injury possibly secondary to ATN -Started hemodialysis December 12 -Urine output documented as 500 mL so far today. -Hemodialysis today per nephrology -Nephrology managing Chronic kidney disease stage IV Hypercoaguability with MTHFR History of DVT and pulmonary embolism -on heparin TID for DVT PPx Severe obesity with BMI 52.1 outpt weight loss referral History of osteoarthritis. History of uterine cancer. History of gout. DVT prophylaxis: heparin TID Condition is critical.
[2021-12-18 16:30] LABS: Glucose,Whole Blood 108 mg/dL (75-99)
[2021-12-18] MEDS: ACETAMINOPHEN TAB 325 MG TAB PO PRN (18:43)
[2021-12-18] MEDS ORDERED: SODIUM CHLORIDE 0.65% NASAL SPRAY 44 ML BTL NASAL PRN (18:44)
[2021-12-18 23:48] LABS: Glucose,Whole Blood 121 mg/dL (75-99)
[2021-12-19] MEDS: 1: MVI, ADULT NO.4 WITH VIT K 10 ML, TRACE (CONC-1ML/DOSE) 1 ML, PARENTERAL ELECTROLYTES IV SCH ×15 (00:31→18:11)
[2021-12-19] MEDS: PIPERACILLIN-TAZOBACTAM 3.375 GM in SODIUM CHLORIDE 0.9% 100 ML IVPB SCH (06:02)
[2021-12-19] MEDS: INSULIN ASPART (NovoLOG) 100 UNIT/ML VIAL SQ SCH ×3 (06:15→17:42)
[2021-12-19 06:16] LABS: Glucose,Whole Blood 134 mg/dL (75-99)
[2021-12-19 08:20] LABS: Calcium 8.1 mg/dL (8.4-10.2); Magnesium 1.9 mg/dL (1.6-2.3); Phosphorus 3.6 mg/dL (2.5-4.5); Potassium 3.1 mmol/L (3.5-5.1)
[2021-12-19] MEDS ORDERED: POTASSIUM CHLORIDE ER 20 MEQ TAB.ER PO STA (08:58)
[2021-12-19] MEDS ORDERED: POTASSIUM CHLORIDE 10 MEQ in WATER FOR INJECTION 1 100ML.BAG IVPB STA (08:58)
--- NOTE | 2021-12-19 09:32 | P.PN ---
Subjective Patient is seen in follow-up for acute kidney injury on chronic kidney disease. Started on hemodialysis 12/12/2021. Receiving TPN. Not eating much he doesn't feel hungry. Urine output near 2.5 L in the last 24 hours. Patient is resting in bed. Blood pressure stable. On room air. Vital signs are stable. General: Awake. HEENT: Nasal cannula. LUNGS: Breath sounds decreased. HEART: Rate and Rhythm are regular. ABDOMEN: No distention noted. EXTREMITITES: Trace edema. Objective - Vital Signs Vital signs: Vital Signs Temp 98.1 F 12/19/21 03:54 Pulse 96 12/19/21 03:54 Resp 20 12/19/21 03:54 BP 108/55 12/19/21 03:54 Pulse Ox 98 12/19/21 03:54 Intake & Output 12/18/21 12/19/21 12/19/21 18:59 06:59 18:59 Intake Total 700 Output Total 645 2080 Balance -645 -1380 Weight 136 kg Intake: Intake, IV Titration 700 Amount Mvi, Adult No.4 with Vit 600 K 10 ml Trace (Conc-1Ml/ Dose) 1 ml Parenteral Electrolytes 20 ml Potassium Chloride 20 meq In Amino Acids 5 %/ Dextrose 20 % 1,000 ml @ 50 mls/hr IV .BY D[facility]ATION [facility] Rx#:[id number] Piperacillin-Tazobactam 3 100 .375 gm In Sodium Chloride 0.9% 100 ml @ 25 mls/hr IVPB Q12H [facility] Rx# :[id number] Output: Drainage 20 80 Abdomen 0 Left Lower Abdomen 20 80 Urine 625 1999 Uretheral ([place]) 1999 Other: Voiding Method Indwelling Catheter Indwelling Catheter ABP, PAP, CO, CI - Last Documented Arterial Blood Pressure 136/60 - Labs CBC & Chem 7: 12/17/21 07:31 12/19/21 06:55 Labs: Abnormal Lab Results - Last 24 Hours (Table) 12/18/21 12/18/21 12/18/21 Range/Units 11:22 16:29 23:36 Potassium (3.5-5.1) mmol/L BUN (7-17) mg/dL Creatinine (0.52-1.04) mg/dL Glucose (74-99) mg/dL POC Glucose (mg/dL) 138 H 108 H 121 H (75-99) mg/dL Calcium (8.4-10.2) mg/dL 12/19/21 12/19/21 Range/Units 06:15 06:55 Potassium 3.1 L (3.5-5.1) mmol/L BUN 60 H (7-17) mg/dL Creatinine 2.62 H (0.52-1.04) mg/dL Glucose 110 H (74-99) mg/dL POC Glucose (mg/dL) 134 H (75-99) mg/dL Calcium 8.1 L (8.4-10.2) mg/dL Microbiology - Last 24 Hours (Table) 12/12/21 16:37 Blood Culture - Final Blood No Growth after 144 hours Assessment and Plan Plan: Assessment: 1. Acute kidney injury secondary to ATN secondary to hypotension/shock. Started on hemodialysis 12/12/2021. Has a right femoral catheter. Last dialysis 12/17/2021. Creatinine 2.6 today. 2. Chronic kidney disease stage IV secondary to cardiorenal syndrome with baseline creatinine in the range of 2-2.5. UA benign. No hydronephrosis noted on CAT scan. 3. 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 Further resection done 12/11/2021 and 12/12/2021. 4. Acute on chronic systolic CHF with ejection fraction of 40-45%. 5. Hypokalemia from diuresis. 6. Anemia of chronic kidney disease. Iron deficiency noted. IV iron held due to abdominal infection. On Aranesp. 7. A. fib with RVR. Cardiology following. Plan: Continue to hold hemodialysis. Monitor for renal recovery. Good urine output. Potassium being replaced. Currently receiving TPN. Strict I's and O's. Avoid nephrotoxins. Decrease dose of Lasix to 40 mg IV twice daily. Continue to assess daily for need for renal replacement therapy.
[2021-12-19] MEDS: HEPARIN SODIUM,PORCINE/PF 5,000 UNIT/0.5 ML SYRINGE SQ SCH ×3 (10:21→23:49)
[2021-12-19] MEDS: FUROSEMIDE 10 MG/ML 10 ML VIAL IV SCH (10:21)
[2021-12-19] MEDS: ACETAMINOPHEN TAB 325 MG TAB PO PRN (11:27)
[2021-12-19 11:34] LABS: Glucose,Whole Blood 138 mg/dL (75-99)
--- NOTE | 2021-12-19 12:22 | P.PN ---
Subjective Progress Note Date: 12/19/21 Principal diagnosis: abdominal pain 71-year-old female with a history of A. fib anticoagulated on Coumadin, history of prior pulmonary embolism and DVT with known MTHFR, systolic congestive heart failure with ejection fraction 45-50% (recovered from 30-35%) and chronic kidney disease stage IV following with nephrology on an outpatient basis who presented for abdominal wall hernia that is no longer reducible. On arrival she was found to be tachycardic. Laboratory analysis showed a white blood cell count of 13.8, creatinine was near her baseline at 2.13 consistent with her chronic kidney disease stage IV, glucose was mildly elevated at 153 on the laboratory analysis is otherwise unremarkable. She underwent a CT abdomen and pelvis which demonstrated a large lower anterior abdominal wall ventral hernia containing multiple bowel loops without signs of obstruction. In the emergency department she was started on Zosyn, IV fluids, and pain medications. She was placed in observation for further surgical evaluation. She uses a walker at baseline. She is independent with bathing and dressing as well as meal prep. She does have assistance with cleaning. She has been unable to leave her house. She is unable to walk a full flight of stairs. She denies any recent episodes of chest pain or syncope. Status post exploratory laparotomy, excision of umbilicus and hernia sac, small bowel resection, reduction of ventral hernia and wound VAC placement on December 09 Interval history: 12/12 Patient was seen and examined at the bedside. Still sedated and intubated. Patient was taken to or yesterday she had 220 cm necrotic small bowel removed by general surgery with wound VAC placement. Since yesterday she has required dialysis catheter placement and has started hemodialysis this morning. Chest x- ray shows persistent bilateral infiltrates, laboratory studies show a significant leukocytosis but her pressor requirement is starting to come down, mean arterial pressures are adequate. 12/13 patient was examined at bedside. She is still intubated. She was taken to or yesterday for third expiratory laparotomy she had [id number] ileocolonic anastomosis with closure of mesenteric defect. 12/14 patient was examined at the bedside. Patient still intubated. She is currently off Levophed. Still oliguric urine output is 200 over the past 24 hours. Critical care team planning possible extubation today. 12/15 The patient was successfully extubated yesterday. NG tube remains in place. She is on nasal O2 at 2 L. she had hemodialysis yesterday and today. She is making some urine. Norepinephrine has been weaned off. The patient's on lactated Ringer's at 10 mL an hour. We started TPN at 50 mL an hour. Microbiology is negative. She is awake alert oriented to her name otherwise she seems to be very weak and confused. 12/16 patient was examined at bedside. She is awake alert oriented 2. She denies any chest pain or shortness of breath. She has been transferred out of ICU per critical care team. 12/17 patient was examined at the bedside. She is still alert and oriented 2. She is complaining of generalized weakness. She denies any chest pain or shortness breath. She was transferred out of the ICU overnight. Patient was seen by speech and started on pure diet. 12/18: was having diarrhea according to the nursing staff. Rectal tube had to be inserted. She is very weak and can't even lift her arm up. 12/19: Patient continues to have diarrhea, fecal management system in place. She complains of severe burning with stooling. She has not been eating much. No appetite. Urine output is good, 2500, the last 24 hours. No fevers or chills. Objective - Vital Signs Vital signs: Vital Signs Temp 98.1 F 12/19/21 08:00 Pulse 94 12/19/21 08:00 Resp 18 12/19/21 08:00 BP 112/56 12/19/21 08:00 Pulse Ox 94 L 12/19/21 08:00 Intake & Output 12/18/21 12/19/21 12/19/21 18:59 06:59 18:59 Intake Total 700 118 Output Total 645 2080 40 Balance -645 -1380 78 Weight 136 kg 136 kg Intake: Intake, IV Titration 700 Amount Mvi, Adult No.4 with Vit 600 K 10 ml Trace (Conc-1Ml/ Dose) 1 ml Parenteral Electrolytes 20 ml Potassium Chloride 20 meq In Amino Acids 5 %/ Dextrose 20 % 1,000 ml @ 50 mls/hr IV .BY DURATION [facility] Rx#:[id number] Piperacillin-Tazobactam 3 100 .375 gm In Sodium Chloride 0.9% 100 ml @ 25 mls/hr IVPB Q12H [facility] Rx# :[id number] Oral 118 Output: Drainage 20 80 40 Abdomen 0 Left Lower Abdomen 20 80 40 Urine 625 1999 Uretheral ([place]) 1999 Other: Voiding Method Indwelling Catheter Indwelling Catheter Indwelling Catheter ABP, PAP, CO, CI - Last Documented Arterial Blood Pressure 136/60 - Exam General: Awake and oriented 2 Derm: warm, dry Head: atraumatic, normocephalic, symmetric Eyes: EOMI, no lid lag, anicteric sclera Mouth: no lip lesion, mucus membranes moist Cardiovascular: Irregular regular rhythm. A. fib Lungs: CTA bilateral, no rhonchi, no rales , no accessory muscle use Abdominal: Soft without bowel sounds. [address] Abdomen is open Ext: no gross muscle atrophy, no edema, no contractures Neuro: No focal deficit - Labs CBC & Chem 7: 12/17/21 07:31 12/19/21 06:55 Labs: Abnormal Lab Results - Last 24 Hours (Table) 12/18/21 12/18/21 12/19/21 Range/Units 16:29 23:36 06:15 Potassium (3.5-5.1) mmol/L BUN (7-17) mg/dL Creatinine (0.52-1.04) mg/dL Glucose (74-99) mg/dL POC Glucose (mg/dL) 108 H 121 H 134 H (75-99) mg/dL Calcium (8.4-10.2) mg/dL 12/19/21 12/19/21 Range/Units 06:55 11:32 Potassium 3.1 L (3.5-5.1) mmol/L BUN 60 H (7-17) mg/dL Creatinine 2.62 H (0.52-1.04) mg/dL Glucose 110 H (74-99) mg/dL POC Glucose (mg/dL) 138 H (75-99) mg/dL Calcium 8.1 L (8.4-10.2) mg/dL Microbiology - Last 24 Hours (Table) 12/12/21 16:37 Blood Culture - Final Blood No Growth after 144 hours Assessment and Plan Plan: Septic Shock from Small Bowel Necrosis and Perforation Strangulated abdominal wall hernia to the left of the umbilicus containing loops of bowel -December 09 status post exploratory laparotomy, excision of umbilicus hernia sac, small bowel resection, reduction of ventral hernia, and wound VAC placement. -December 11 Second Look laparotomy with abdominal exploration, resection of 220 cm necrotic small bowel segment, right hemicolectomy, temporary abdominal closure with Apthera VAC. -December 12 Third look exploratory laparotomy with [id number] antimesenteric ileocolonic anastomosis with closure of mesenteric defect, fascial block, primary fascial closure, application of negative pressure wound VAC dressing over 20 x 20 x 5 cm midline surgical soft tissue wound. -Infectious disease consulted December 11 -Extubated December 14 -Hold Coumadin until clered by surgery -Was on IV Zosyn until 12/19, discussed with infectious disease, diarrhea could be side effect from Zosyn. We'll switch to Rocephin and Flagyl. -Tapering TPN -Started on pured diet December 17, tolerating but not eating much. Diarrhea -Started on 12/18, could be a side effect from Zosyn. We'll discontinue and start Rocephin and Flagyl. -Tested negative for C. diff, will start Imodium Acute ventilatory dependent respiratory failure status post extubation December 14 -Resolved. Atrial fibrillation with RVR -anticoagulated with Coumadin at baseline -Lopressor 25 twice a day -Start anticoagulation when it is okay with general surgery Cardiomyopathy with ejection fraction 45-50% -Not chronically on CHARLES inhibitor -Lopressor 25 twice a day and titrate as needed -Continue with tele -cardiology following Acute kidney injury possibly secondary to ATN -Started hemodialysis December 12 -Hemodialysis on hold per nephrology -Currently on Lasix, good urine output. Chronic kidney disease stage IV Hypercoaguability with MTHFR History of DVT and pulmonary embolism -on heparin TID for DVT PPx Severe obesity with BMI 52.1 outpt weight loss referral History of osteoarthritis. History of uterine cancer. History of gout. General weakness PT and OT DVT prophylaxis: heparin TID Condition is critical. End-of-life care discussed with family, patient is profoundly weak and risk for progressive complications is very high. I tried to open end-of-life care decisions with her [id number] but I was told that family is not ready for that conversation yet. Patient is currently DO NOT RESUSCITATE however, she is okay with a ventilator if needed.
[2021-12-19] MEDS: HYDROmorphone 1 MG/ML 1 ML SYRINGE IVP PRN ×2 (12:35→21:50)
--- NOTE | 2021-12-19 13:11 | P.PN ---
Subjective Progress Note Date: 12/19/21 Principal diagnosis: Strangulated ventral hernia with small bowel ischemia and necrosis, morbid obesity, history of hypercoagulable state maintained on Coumadin Patient seen and examined at bedside. Remains weak and debilitated unable to get out of bed, appetite is poor, some issues with nausea with IV pain medications. Loose bowel movements are starting to taper off, rectal tubes in place. Serial Clostridium difficile screens were negative, she's been started on loperamide. She denies [place] fever or chills, admits to positional incisional pains. Wound VAC dressings in place to suction without leak, JADE drains in place to suction with serous output. Objective - Vital Signs Vital signs: Vital Signs Temp 97.9 F 12/19/21 11:20 Pulse 92 12/19/21 11:20 Resp 18 12/19/21 11:20 BP 108/55 12/19/21 11:20 Pulse Ox 95 12/19/21 11:20 Intake & Output 12/18/21 12/19/21 12/19/21 18:59 06:59 18:59 Intake Total 700 118 Output Total 645 2080 40 Balance -645 -1380 78 Weight 136 kg 136 kg Intake: Intake, IV Titration 700 Amount Mvi, Adult No.4 with Vit 600 K 10 ml Trace (Conc-1Ml/ Dose) 1 ml Parenteral Electrolytes 20 ml Potassium Chloride 20 meq In Amino Acids 5 %/ Dextrose 20 % 1,000 ml @ 50 mls/hr IV .BY DURATION [facility] Rx#:[id number] Piperacillin-Tazobactam 3 100 .375 gm In Sodium Chloride 0.9% 100 ml @ 25 mls/hr IVPB Q12H [facility] Rx# :[id number] Oral 118 Output: Drainage 20 80 40 Abdomen 0 Left Lower Abdomen 20 80 40 Urine 625 1999 Uretheral ([place]) 1999 Other: Voiding Method Indwelling Catheter Indwelling Catheter Indwelling Catheter ABP, PAP, CO, CI - Last Documented Arterial Blood Pressure 136/60 - Constitutional General appearance: Present: morbidly obese - EENT Eyes: Present: EOMI, PERRLA ENT: Present: hearing grossly normal - Respiratory Respiratory: bilateral: CTA - Cardiovascular Rhythm: irregularly irregular - Gastrointestinal Gastrointestinal Comment(s): Abdominal wound VAC dressing to suction without leak, mild diffuse tenderness, no guarding rebound. JADE drains in place to suction with serous fluid. General gastrointestinal: Present: soft - Neurologic Neurologic: Present: CNII-XII intact - Musculoskeletal Musculoskeletal: Present: generalized weakness - Psychiatric Psychiatric: Present: A&O x's 3, appropriate affect, intact judgment & insight - Labs CBC & Chem 7: 12/17/21 07:31 12/19/21 06:55 Labs: Abnormal Lab Results - Last 24 Hours (Table) 12/18/21 12/18/21 12/19/21 Range/Units 16:29 23:36 06:15 Potassium (3.5-5.1) mmol/L BUN (7-17) mg/dL Creatinine (0.52-1.04) mg/dL Glucose (74-99) mg/dL POC Glucose (mg/dL) 108 H 121 H 134 H (75-99) mg/dL Calcium (8.4-10.2) mg/dL 12/19/21 12/19/21 Range/Units 06:55 11:32 Potassium 3.1 L (3.5-5.1) mmol/L BUN 60 H (7-17) mg/dL Creatinine 2.62 H (0.52-1.04) mg/dL Glucose 110 H (74-99) mg/dL POC Glucose (mg/dL) 138 H (75-99) mg/dL Calcium 8.1 L (8.4-10.2) mg/dL Microbiology - Last 24 Hours (Table) 12/12/21 16:37 Blood Culture - Final Blood No Growth after 144 hours Assessment and Plan Assessment: 1) 71-year-old lady status post exploratory laparotomy with 30 cm segmental small bowel resection for ischemia, necrosis and perforation, subsequent to 220 cm small bowel resection for full-thickness necrosis on second look, subsequent anastomosis and primary closure on third look. Wound VAC dressing placement for soft tissue wound at risk for infection and subsequent underlying fascial dehiscence. Persistent loose bowel movements, pledgeted with this I'll screen negative, improving on loperamide. Poor oral intake, presently on TPN. 2) Physical deconditioning. 3) Oral anticoagulation on Coumadin for remote history of DVT, pulmonary embolus and hypercoagulable state with MTHFR mutation. 4) Super morbid obesity with BMI in excess of 50. 5) Chronic congestive heart failure, long-standing atrial fibrillation, stage IV chronic kidney disease and cardiorenal syndrome. Plan: Diet as tolerated, wean TPN as well as oral intake improves. If she requires TPN for much longer we should get her transitioned to PICC so that her subclavian central venous catheter can be removed. From a surgical standpoint she can likely resume all full dose anticoagulation at any time however it would be better to get her subclavian line out and intermediate-term access for TPN sorted out prior to resuming oral anticoagulants. Goals at this point our of physical rehabilitation, improving oral intake and activity. Nephrology and medical notes reviewed and appreciated. Continue with Friday wound VAC dressing changes. Time with Patient: Greater than 30
[2021-12-19] MEDS: LOPERAMIDE 2 MG CAP PO SCH ×3 (13:27→20:42)
--- NOTE | 2021-12-19 14:17 | P.PN ---
Subjective Progress Note Date: 12/18/21 Principal diagnosis: Abdominal sepsis Patient is a 71 year female admitted to the hospital with abdominal pain has been diagnosis stimulated went hernia with ischemic bowel and perforation in this patient who is status post initial surgery with reduction of hernia and resection of the ischemic portion of small bowel patient was taken back to the OR on 12/12/2021 and the patient is status post [id number] antimesenteric ileocolonic anastomosis with closure of mesenteric defect and application of wound VAC. On today's evaluation that is 12/18/2021, the patient is afebrile, the patient is more awake and alert today , the patient denies having any chest pain shortn ess of breath or cough has been complaining of diarrhea and no vomiting has been reported Objective - Vital Signs Vital signs: Vital Signs Temp 98.6 F 12/18/21 08:00 Pulse 96 12/18/21 08:00 Resp 19 12/18/21 08:00 BP 99/53 12/18/21 08:00 Pulse Ox 97 12/18/21 08:00 Intake & Output 12/17/21 12/18/21 12/18/21 18:59 06:59 18:59 Intake Total 1100 500 Output Total 1300 1460 645 Balance -200 -960 -645 Weight 147.4 kg 137.5 kg Intake: Intake, IV Titration 800 500 Amount Mvi, Adult No.4 with Vit 400 K 10 ml Trace (Conc-1Ml/ Dose) 1 ml Parenteral Electrolytes 20 ml Potassium Chloride 20 meq In Amino Acids 5 %/ Dextrose 20 % 1,000 ml @ 50 mls/hr IV .BY DURATION [facility] Rx#:[id number] Parenteral Electrolytes 600 20 ml Potassium Chloride 20 meq In Amino Acids 5 % /Dextrose 20 % 1,000 ml @ 50 mls/hr IV .BY DURATION [facility] Rx#: [id number] Piperacillin-Tazobactam 3 100 100 .375 gm In Sodium Chloride 0.9% 100 ml @ 25 mls/hr IVPB Q12H [facility] Rx# :[id number] Potassium Chloride 20 meq 100 In Water For Injection 1 100ml.bag @ 50 mls/hr IVPB ONCE [facility] Rx#: [id number] Hemodialysis 300 Output: Drainage 110 20 Abdomen 20 0 Left Lower Abdomen 90 20 Urine 1350 625 Hemodialysis 1300 Other: Voiding Method Indwelling Catheter Indwelling Catheter Indwelling Catheter # Bowel Movements 1 ABP, PAP, CO, CI - Last Documented Arterial Blood Pressure 136/60 - Exam GENERAL DESCRIPTION: An elderly female lying in bed RESPIRATORY SYSTEM: Unlabored breathing , decreased breath sounds at bases HEART: S1 S2 regular rate and rhythm , ABDOMEN: Soft , midline abdominal wound is covered with a wound VAC EXTREMITIES: No edema feet - Labs CBC & Chem 7: 12/17/21 07:31 12/19/21 06:55 Labs: Abnormal Lab Results - Last 24 Hours (Table) 12/17/21 12/17/21 12/17/21 Range/Units 07:30 07:31 23:07 Myelocytes % 4 H (0-0) % Neutrophils # (Manual) 9.25 H (2.00-8.90) X 10*3/uL Lymphocytes # (Manual) 0.42 L (0.90-5.00) X 10*3/uL Eosinophils # (Manual) 0 L (0.04-0.35) X 10*3/uL Sodium (137-145) mmol/L Potassium (3.5-5.1) mmol/L BUN (7-17) mg/dL Creatinine (0.52-1.04) mg/dL Glucose (74-99) mg/dL POC Glucose (mg/dL) 111 H (75-99) mg/dL Calcium (8.4-10.2) mg/dL Iron 43 L (50-170) ug/dL Transferrin 201.0 L (204.0-354.0) mg/dL 12/18/21 12/18/21 12/18/21 Range/Units 00:11 00:55 05:53 Myelocytes % (0-0) % Neutrophils # (Manual) (2.00-8.90) X 10*3/uL Lymphocytes # (Manual) (0.90-5.00) X 10*3/uL Eosinophils # (Manual) (0.04-0.35) X 10*3/uL Sodium (137-145) mmol/L Potassium 3.3 L (3.5-5.1) mmol/L BUN (7-17) mg/dL Creatinine (0.52-1.04) mg/dL Glucose (74-99) mg/dL POC Glucose (mg/dL) 113 H 110 H (75-99) mg/dL Calcium (8.4-10.2) mg/dL Iron (50-170) ug/dL Transferrin (204.0-354.0) mg/dL 12/18/21 12/18/21 Range/Units 07:24 11:22 Myelocytes % (0-0) % Neutrophils # (Manual) (2.00-8.90) X 10*3/uL Lymphocytes # (Manual) (0.90-5.00) X 10*3/uL Eosinophils # (Manual) (0.04-0.35) X 10*3/uL Sodium 136 L (137-145) mmol/L Potassium 3.2 L (3.5-5.1) mmol/L BUN 53 H (7-17) mg/dL Creatinine 2.05 H (0.52-1.04) mg/dL Glucose 104 H (74-99) mg/dL POC Glucose (mg/dL) 138 H (75-99) mg/dL Calcium 7.7 L (8.4-10.2) mg/dL Iron (50-170) ug/dL Transferrin (204.0-354.0) mg/dL Microbiology - Last 24 Hours (Table) 12/12/21 16:37 Blood Culture - Preliminary Blood No Growth after 120 hours Assessment and Plan (1) Sepsis Current Visit: Yes Status: Acute Code(s): A41.9 - SEPSIS, UNSPECIFIED ORGANISM SNOMED Code(s): 89185070 Plan: 1patient presented to hospital with abdominal pain and did have evidence of elevated white count tachycardia meeting criteria for sepsis sources incarcerated abdominal hernia with perforated small bowel status post resection and need to cover for the enteric gram-negative with a likely pathogen, patient is currently covered with Zosyn will be continued while waiting for the oral activity to improve before transitioning her to oral antibiotics 2- diarrhea will check a stool for C. diff and treat if positive Time with Patient: Less than 30
--- NOTE | 2021-12-19 14:20 | P.PN ---
Subjective Progress Note Date: 12/19/21 Principal diagnosis: Abdominal sepsis Patient is a 71 year female admitted to the hospital with abdominal pain has been diagnosis stimulated went hernia with ischemic bowel and perforation in this patient who is status post initial surgery with reduction of hernia and resection of the ischemic portion of small bowel patient was taken back to the OR on 12/12/2021 and the patient is status post [id number] antimesenteric ileocolonic anastomosis with closure of mesenteric defect and application of wound VAC. On today's evaluation that is 12/19/2021, the patient remains to be afebrile, the patient denies any chest pain shortness of breath or cough, the patient den ies having any abdominal pain and no nausea however has been complaining of diarrhea for which a fecal management system has been placed Objective - Vital Signs Vital signs: Vital Signs Temp 97.9 F 12/19/21 11:20 Pulse 92 12/19/21 11:20 Resp 18 12/19/21 11:20 BP 108/55 12/19/21 11:20 Pulse Ox 95 12/19/21 11:20 Intake & Output 12/18/21 12/19/21 12/19/21 18:59 06:59 18:59 Intake Total 700 118 Output Total 645 2080 40 Balance -645 -1380 78 Weight 136 kg 136 kg Intake: Intake, IV Titration 700 Amount Mvi, Adult No.4 with Vit 600 K 10 ml Trace (Conc-1Ml/ Dose) 1 ml Parenteral Electrolytes 20 ml Potassium Chloride 20 meq In Amino Acids 5 %/ Dextrose 20 % 1,000 ml @ 50 mls/hr IV .BY DURATION [facility] Rx#:[id number] Piperacillin-Tazobactam 3 100 .375 gm In Sodium Chloride 0.9% 100 ml @ 25 mls/hr IVPB Q12H [facility] Rx# :[id number] Oral 118 Output: Drainage 20 80 40 Abdomen 0 Left Lower Abdomen 20 80 40 Urine 625 1999 Uretheral ([place]) 1999 Other: Voiding Method Indwelling Catheter Indwelling Catheter Indwelling Catheter ABP, PAP, CO, CI - Last Documented Arterial Blood Pressure 136/60 - Exam GENERAL DESCRIPTION: An elderly female lying in bed RESPIRATORY SYSTEM: Unlabored breathing , decreased breath sounds at bases HEART: S1 S2 regular rate and rhythm , ABDOMEN: Soft , midline abdominal wound is covered with a wound VAC EXTREMITIES: No edema feet - Labs CBC & Chem 7: 12/17/21 07:31 12/19/21 06:55 Labs: Abnormal Lab Results - Last 24 Hours (Table) 12/18/21 12/18/21 12/19/21 Range/Units 16:29 23:36 06:15 Potassium (3.5-5.1) mmol/L BUN (7-17) mg/dL Creatinine (0.52-1.04) mg/dL Glucose (74-99) mg/dL POC Glucose (mg/dL) 108 H 121 H 134 H (75-99) mg/dL Calcium (8.4-10.2) mg/dL 12/19/21 12/19/21 Range/Units 06:55 11:32 Potassium 3.1 L (3.5-5.1) mmol/L BUN 60 H (7-17) mg/dL Creatinine 2.62 H (0.52-1.04) mg/dL Glucose 110 H (74-99) mg/dL POC Glucose (mg/dL) 138 H (75-99) mg/dL Calcium 8.1 L (8.4-10.2) mg/dL Microbiology - Last 24 Hours (Table) 12/12/21 16:37 Blood Culture - Final Blood No Growth after 144 hours Assessment and Plan (1) Sepsis Current Visit: Yes Status: Acute Code(s): A41.9 - SEPSIS, UNSPECIFIED ORGANISM SNOMED Code(s): 39745214 Plan: 1patient presented to hospital with abdominal pain and did have evidence of elevated white count tachycardia meeting criteria for sepsis sources incarcerated abdominal hernia with perforated small bowel status post resection and need to cover for the enteric gram-negative with a likely pathogen, patient is currently covered with Zosyn however will be switched to Rocephin and Flagyl because of diarrhea 2- diarrhea likely antibiotic associated , Zosyn has been discontinued Rocephin and Flagyl has been added and will see clinical response to it Time with Patient: Less than 30
--- NOTE | 2021-12-19 14:43 | P.PN ---
Subjective Progress Note Date: 12/19/21 Principal diagnosis: Abdominal pain On 12/17/2021 patient seen in follow-up on regular medical surgical floor. She is awake, does not appear to be in any acute distress, she is on 2 L of oxygen pulse ox is 97%. Denies any shortness of breath, her lung sounds are clear to auscultation, patient is on the blended diet however it appears that her appetite has been quite poor, and patient remains on TPN running at 50 ML per hour. Patient has a wound VAC in place to continue suction with black foam. Abdomen is soft, obese, nontender. Patient remains on hemodialysis, last he modialysis session was on 12/15/2021 would removal of 3.8 L of fluid. Right groin hemodialysis catheter is in place, clean dry and intact. She remains on Zosyn. She remains on Lasix 60 mg every 12 hours, and nephrology is following. His labs have been reviewed, we will with with, was 10.3, hemoglobin is 7.4, platelet count 212, sodium is 130, potassium 2.9, chloride is 108, BUN is 59, creatinine is 2.6. No acute events overnight. Patient is answering questions appropriately. Seems a bit dehydrated, oral membranes are quite dry. On 12/19/2021 patient seen in follow-up on selective care unit, she is awake and alert, seems to be in acute distress, denies any trouble breathing, no cough, no chest discomfort, on room air pulse ox is 95%, she is resting in bed. She remains on TPN at 50 ML per hour, she is on a pured diet however her oral intake has been poor. Vital signs have been stable, blood pressure is been stable, 108/55, no fever or chills, breathing has been nonlabored. Abdominal wound has a wound VAC in place, still draining quite a bit of seros output. JADE drain is in place, with approximate the 100 mL of output in last 24 hours. Objective - Vital Signs Vital signs: Vital Signs Temp 97.9 F 12/19/21 11:20 Pulse 92 12/19/21 14:00 Resp 18 12/19/21 14:00 BP 108/55 12/19/21 11:20 Pulse Ox 95 12/19/21 11:20 Intake & Output 12/18/21 12/19/2122 18:59 06:59 18:59 Intake Total 700 118 Output Total 645 2080 40 Balance -645 -1380 78 Weight 136 kg 136 kg Intake: Intake, IV Titration 700 Amount Mvi, Adult No.4 with Vit 600 K 10 ml Trace (Conc-1Ml/ Dose) 1 ml Parenteral Electrolytes 20 ml Potassium Chloride 20 meq In Amino Acids 5 %/ Dextrose 20 % 1,000 ml @ 50 mls/hr IV .BY DURATION [facility] Rx#:[id number] Piperacillin-Tazobactam 3 100 .375 gm In Sodium Chloride 0.9% 100 ml @ 25 mls/hr IVPB Q12H [facility] Rx# :[id number] Oral 118 Output: Drainage 20 80 40 Abdomen 0 Left Lower Abdomen 20 80 40 Urine 625 2000 Uretheral ([place]) 1999 Other: Voiding Method Indwelling Catheter Indwelling Catheter Indwelling Catheter ABP, PAP, CO, CI - Last Documented Arterial Blood Pressure 136/60 - Exam GENERAL EXAM: Alert, oriented 2, 71-year-old morbidly obese white female on room air with a pulse ox of 95% comfortable in no apparent distress. HEAD: Normocephalic/atraumatic. EYES: Normal reaction of pupils, equal size. Conjunctiva pink, sclera white. NOSE: Clear with pink turbinates. MOUTH: Oral membranes are quite dry THROAT: No erythema or exudates. NECK: No masses, no JVD, no thyroid enlargement, no adenopathy. CHEST: No chest wall deformity. Symmetrical expansion. LUNGS: Equal air entry with no crackles, wheeze, rhonchi or dullness. CVS: Regular rate and rhythm, normal S1 and S2, no gallops, no murmurs, no rubs ABDOMEN: Soft, nontender, midabdominal abdominal wound with wound VAC in place and black foam, to continue suction with moderate amount of serous output. No hepatosplenomegaly, normal bowel sounds, no guarding or rigidity. EXTREMITIES: No clubbing, mild lower extremity edema, no cyanosis, 2+ pulses and upper and lower extremities. Right groin temporary hemodialysis catheter is in place clean dry and intact MUSCULOSKELETAL: Muscle strength and tone normal. SPINE: No scoliosis or deformity SKIN: No rashes CENTRAL NERVOUS SYSTEM: Alert and oriented -2. No focal deficits, tone is normal in all 4 extremities. PSYCHIATRIC: Alert and oriented -2. Appropriate affect. Intact judgment and insight. - Labs CBC & Chem 7: 12/17/21 07:31 12/19/21 06:55 Labs: Abnormal Lab Results - Last 24 Hours (Table) 12/18/21 12/18/21 12/19/21 Range/Units 16:29 23:36 06:15 Potassium (3.5-5.1) mmol/L BUN (7-17) mg/dL Creatinine (0.52-1.04) mg/dL Glucose (74-99) mg/dL POC Glucose (mg/dL) 108 H 121 H 134 H (75-99) mg/dL Calcium (8.4-10.2) mg/dL 12/19/21 12/19/21 Range/Units 06:55 11:32 Potassium 3.1 L (3.5-5.1) mmol/L BUN 60 H (7-17) mg/dL Creatinine 2.62 H (0.52-1.04) mg/dL Glucose 110 H (74-99) mg/dL POC Glucose (mg/dL) 138 H (75-99) mg/dL Calcium 8.1 L (8.4-10.2) mg/dL Microbiology - Last 24 Hours (Table) 12/12/21 16:37 Blood Culture - Final Blood No Growth after 144 hours Assessment and Plan Plan: Assessment: #1. Acute abdominal pain related to strangulated ventral hernia with bowel ischemia and perforation, status post exploratory laparotomy and small bowel resection, and second look exploratory laparotomy with further bowel resection. Patient had ileocolic anastomosis. Has a wound VAC in place. Initial surgery was on all 12/09/2021, and patient was taken back to the OR for a second look on 12/11/2021 #2. Routine postoperative ventilator management, successful wean and extubation on 12/14/2021 #3. Acute kidney injury, was started on hemodialysis on December 12, current creatinine is 2.62 #4. History of chronic A. fib #5. History of DVT #6. History of hypertension #7. History of pulmonary embolism #8. History of prostatitis #9. History of uterine cancer #10. History of gout #11. History of chronic disease #12. Presents of MTH far mutation #13. Morbid obesity with BMI of 59.4 kg/m #14. History of systolic CHF with ejection fraction of 30-35% #15. History of COVID 19 pneumonia in August 2019 #16. Diarrhea, negative for C. diff, status post fecal management system insertion Plan: Provide incentive spirometer Encourage deep breathing and coughing Continue antibiotics per ID service recommendations Patient denies any worsening dyspnea Maintain aspiration precautions Provide incentive spirometer GI and DVT prophylaxis Dietary recommendations per surgery Abdominal wound VAC recommendations per surgery Nephrology recommendations Stable from pulmonary perspective We will follow on as-needed basis I have personally seen and examined the patient, performed the documentation and the assessment and plan as written. Number of minutes spent on the visit: [10] I have personally seen and examined the patient and reviewed the documentation. I performed a joint evaluation with the nurse practitioner in this evaluation was done more than 20 minutes. I fully agree with the documentation above and the plan of care. Time with Patient: Less than 30
[2021-12-19] MEDS: PANTOPRAZOLE 40 MG/10 ML VIAL IV SCH (15:20)
[2021-12-19] MEDS: METOPROLOL TARTRATE 25 MG TAB PO SCH ×2 (15:21→20:42)
[2021-12-19 17:14] LABS: Glucose,Whole Blood 119 mg/dL (75-99)
[2021-12-19] MEDS: metroNIDAZOLE-NS PMX 500 MG in SALINE 1 100ML.BAG IVPB SCH ×2 (17:49→23:44)
[2021-12-19] MEDS: FUROSEMIDE 10 MG/ML 4 ML VIAL IV SCH (20:42)
[2021-12-19] MEDS: ONDANSETRON 4 MG/2 ML VIAL IVP PRN (21:24)
[2021-12-20 00:04] LABS: Glucose,Whole Blood 135 mg/dL (75-99)
[2021-12-20] MEDS: INSULIN ASPART (NovoLOG) 100 UNIT/ML VIAL SQ SCH ×4 (00:39→19:33)
[2021-12-20] MEDS: ACETAMINOPHEN TAB 325 MG TAB PO PRN (01:32)
[2021-12-20 06:06] LABS: Glucose,Whole Blood 106 mg/dL (75-99)
[2021-12-20 08:00] LABS: Anisocytosis Slight; Basophils # (A) 0.1 k/uL (0-0.2); Basophils % (A) 0 %; Eosinophils # (A) 0.4 k/uL (0-0.7); Eosinophils % (A) 3 %; HCT 26.5 % (34.0-46.0); Hypochromasia Marked; Lymphocytes # (A) 1.2 k/uL (1.0-4.8); Lymphocytes % (A) 10 %; MCHC 30.4 g/dL (31.0-37.0); MCV 98.7 fL (80.0-100.0); Macrocytosis Slight; Mean Platelet Volume 9.3; Monocytes # (A) 0.6 k/uL (0-1.0); Monocytes % (A) 6 %; Neutrophils % (A) 78 %; Platelet Count 203 k/uL (150-450); RBC 2.68 m/uL (3.80-5.40); RDW 16.6 % (11.5-15.5); WBC 11.6 k/uL (3.8-10.6)
[2021-12-20 08:21] LABS: Calcium 8.2 mg/dL (8.4-10.2); Magnesium 1.8 mg/dL (1.6-2.3); Phosphorus 3.2 mg/dL (2.5-4.5); Potassium 3.5 mmol/L (3.5-5.1)
[2021-12-20] MEDS: metroNIDAZOLE-NS PMX 500 MG in SALINE 1 100ML.BAG IVPB SCH ×2 (08:51→16:13)
[2021-12-20] MEDS: PANTOPRAZOLE 40 MG/10 ML VIAL IV SCH (08:52)
[2021-12-20] MEDS: LOPERAMIDE 2 MG CAP PO SCH ×3 (09:00→19:04)
[2021-12-20] MEDS: FUROSEMIDE 10 MG/ML 4 ML VIAL IV SCH ×2 (09:00→20:52)
[2021-12-20] MEDS: METOPROLOL TARTRATE 25 MG TAB PO SCH ×2 (09:00→20:52)
[2021-12-20] MEDS: HEPARIN SODIUM,PORCINE/PF 5,000 UNIT/0.5 ML SYRINGE SQ SCH ×2 (09:00→16:13)
[2021-12-20] MEDS ORDERED: POTASSIUM CHLORIDE ER 20 MEQ TAB.ER PO STA (09:25)
--- NOTE | 2021-12-20 09:28 | P.PN ---
Subjective Patient is seen in follow-up for acute kidney injury on chronic kidney disease. Started on hemodialysis 12/12/2021. Receiving TPN. Oral intake just fair. Urine output remains good - over 2 L in last 24 hours. Patient is resting in bed. Blood pressure stable. On room air. Vital signs are stable. General: Awake. HEENT: No JVD. LUNGS: Breath sounds decreased. HEART: Rate and Rhythm are regular. ABDOMEN: No distention noted. EXTREMITITES: Trace edema. Objective - Vital Signs Vital signs: Vital Signs Temp 97.7 F 12/20/21 03:54 Pulse 97 12/20/21 03:54 Resp 20 12/20/21 03:54 BP 154/59 12/20/21 03:54 Pulse Ox 96 12/20/21 03:54 Intake & Output 12/19/21 12/20/21 12/20/21 18:59 06:59 18:59 Intake Total 968 570 Output Total 100 1665 Balance 868 -1095 Weight 136 kg 132.5 kg Intake: Intake, IV Titration 850 200 Amount Parenteral Electrolytes 600 20 ml Potassium Chloride 40 meq In Amino Acids 5 % /Dextrose 20 % 1,000 ml @ 50 mls/hr IV .BY DURATION COUNTS INCLUDE 234 BEDS AT THE [facility] Rx#: [id number] Potassium Chloride 10 meq 100 In Water For Injection 1 100ml.bag @ 100 mls/hr IVPB ONCE [facility] Rx#: [id number] cefTRIAXone 2 gm In 50 Sodium Chloride 0.9% 50 ml @ 100 mls/hr IVPB Q24HR [facility] Rx#:[id number] metroNIDAZOLE-NS PMX 500 100 200 mg In Saline 1 100ml.bag @ 100 mls/hr IVPB Q8HR COUNTS INCLUDE 234 BEDS AT THE [facility] Rx#:[id number] Oral 118 370 Output: Drainage 100 240 Abdomen 200 Left Lower Abdomen 100 40 Urine 1425 Uretheral ([place]) 1425 Other: Voiding Method Indwelling Catheter Indwelling Catheter ABP, PAP, CO, CI - Last Documented Arterial Blood Pressure 136/60 - Labs CBC & Chem 7: 12/20/21 07:33 12/20/21 07:33 Labs: Abnormal Lab Results - Last 24 Hours (Table) 12/19/21 12/19/21 12/20/21 Range/Units 11:32 17:11 00:03 WBC (3.8-10.6) k/uL RBC (3.80-5.40) m/uL Hgb (11.4-16.0) gm/dL Hct (34.0-46.0) % MCHC (31.0-37.0) g/dL RDW (11.5-15.5) % Neutrophils # (1.3-7.7) k/uL Chloride (98-107) mmol/L BUN (7-17) mg/dL Creatinine (0.52-1.04) mg/dL Glucose (74-99) mg/dL POC Glucose (mg/dL) 138 H 119 H 135 H (75-99) mg/dL Calcium (8.4-10.2) mg/dL 12/20/21 12/20/21 12/20/21 Range/Units 06:05 07:33 07:33 WBC 11.6 H (3.8-10.6) k/uL RBC 2.68 L (3.80-5.40) m/uL Hgb 8.0 L (11.4-16.0) gm/dL Hct 26.5 L (34.0-46.0) % MCHC 30.4 L (31.0-37.0) g/dL RDW 16.6 H (11.5-15.5) % Neutrophils # 9.0 H (1.3-7.7) k/uL Chloride 108 H (98-107) mmol/L BUN 65 H (7-17) mg/dL Creatinine 2.82 H (0.52-1.04) mg/dL Glucose 113 H (74-99) mg/dL POC Glucose (mg/dL) 106 H (75-99) mg/dL Calcium 8.2 L (8.4-10.2) mg/dL Assessment and Plan Plan: Assessment: 1. Acute kidney injury secondary to ATN secondary to hypotension/shock. Started on hemodialysis 12/12/2021. Has a right femoral catheter. Last dialysis 12/17/2021. Creatinine 2.8 today. Nonoliguric. 2. Chronic kidney disease stage IV secondary to cardiorenal syndrome with baseline creatinine in the range of 2-2.5. UA benign. No hydronephrosis noted on CAT scan. 3. 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 Further resection done 12/11/2021 and 12/12/2021. 4. Acute on chronic systolic CHF with ejection fraction of 40-45%. 5. Hypokalemia from diuresis. Replaced. Better. 6. Anemia of chronic kidney disease. Iron deficiency noted. IV iron held due to abdominal infection. On Aranesp. 7. A. fib with RVR. Cardiology following. Plan: Continue to hold hemodialysis. Monitor for renal recovery. Good urine output. Replace potassium. Currently receiving TPN. Strict I's and O's. Avoid nephrotoxins. Maintain IV Lasix. Continue to assess daily for need for renal replacement therapy. Repeat chest x-ray.
[2021-12-20 11:45] LABS: Glucose,Whole Blood 131 mg/dL (75-99)
--- NOTE | 2021-12-20 12:31 | P.PN ---
Subjective Progress Note Date: 12/20/21 Principal diagnosis: Strangulated ventral hernia with small bowel ischemia and necrosis, morbid obesity, history of hypercoagulable state maintained on Coumadin Patient seen and examined at bedside. Feeling slightly better today than yesterday. Appetite is still poor, denies discrete nausea or vomiting but having some side effects with IV Dilaudid. Feeling lethargic, hasn't really been out of bed. Loose bowel movement starting to taper off, rectal tubes in place. Hemodialysis presently being held, making good urine output. Continues with TPN, subclavian lines been in place for close to a week now. Objective - Vital Signs Vital signs: Vital Signs Temp 97.9 F 12/20/21 08:00 Pulse 99 12/20/21 08:00 Resp 18 12/20/21 08:00 BP 117/54 12/20/21 08:00 Pulse Ox 99 12/20/21 08:00 Intake & Output 12/19/21 12/20/21 12/20/21 18:59 06:59 18:59 Intake Total 968 570 Output Total 100 1665 Balance 868 -1095 Weight 136 kg 132.5 kg Intake: Intake, IV Titration 850 200 Amount Parenteral Electrolytes 600 20 ml Potassium Chloride 40 meq In Amino Acids 5 % /Dextrose 20 % 1,000 ml @ 50 mls/hr IV .BY DURATION [facility] Rx#: [id number] Potassium Chloride 10 meq 100 In Water For Injection 1 100ml.bag @ 100 mls/hr IVPB ONCE [facility] Rx#: [id number] cefTRIAXone 2 gm In 50 Sodium Chloride 0.9% 50 ml @ 100 mls/hr IVPB Q24HR [facility] Rx#:[id number] metroNIDAZOLE-NS PMX 500 100 200 mg In Saline 1 100ml.bag @ 100 mls/hr IVPB Q8HR [facility] Rx#:[id number] Oral 118 370 Output: Drainage 100 240 Abdomen 200 Left Lower Abdomen 100 40 Urine 1425 Uretheral ([place]) 1425 Other: Voiding Method Indwelling Catheter Indwelling Catheter ABP, PAP, CO, CI - Last Documented Arterial Blood Pressure 136/60 - Constitutional General appearance: Present: morbidly obese - EENT Eyes: Present: PERRLA - Respiratory Respiratory: bilateral: CTA - Cardiovascular Rhythm: irregularly irregular - Gastrointestinal Gastrointestinal Comment(s): Abdomen soft, mild to moderate incisional tenderness to palpation, no guarding rebound or distention appreciated. Wound VAC dressings in place to suction without leak, abdominal drain is in place to suction with mild serous aspirate. - Neurologic Neurologic: Present: CNII-XII intact - Musculoskeletal Musculoskeletal: Present: generalized weakness - Psychiatric Psychiatric: Present: A&O x's 3, appropriate affect, intact judgment & insight - Labs CBC & Chem 7: 12/20/21 07:33 12/20/21 07:33 Labs: Abnormal Lab Results - Last 24 Hours (Table) 12/19/21 12/20/21 12/20/21 Range/Units 17:11 00:03 06:05 WBC (3.8-10.6) k/uL RBC (3.80-5.40) m/uL Hgb (11.4-16.0) gm/dL Hct (34.0-46.0) % MCHC (31.0-37.0) g/dL RDW (11.5-15.5) % Neutrophils # (1.3-7.7) k/uL Chloride (98-107) mmol/L BUN (7-17) mg/dL Creatinine (0.52-1.04) mg/dL Glucose (74-99) mg/dL POC Glucose (mg/dL) 119 H 135 H 106 H (75-99) mg/dL Calcium (8.4-10.2) mg/dL 12/20/21 12/20/21 12/20/21 Range/Units 07:33 07:33 11:43 WBC 11.6 H (3.8-10.6) k/uL RBC 2.68 L (3.80-5.40) m/uL Hgb 8.0 L (11.4-16.0) gm/dL Hct 26.5 L (34.0-46.0) % MCHC 30.4 L (31.0-37.0) g/dL RDW 16.6 H (11.5-15.5) % Neutrophils # 9.0 H (1.3-7.7) k/uL Chloride 108 H (98-107) mmol/L BUN 65 H (7-17) mg/dL Creatinine 2.82 H (0.52-1.04) mg/dL Glucose 113 H (74-99) mg/dL POC Glucose (mg/dL) 131 H (75-99) mg/dL Calcium 8.2 L (8.4-10.2) mg/dL Assessment and Plan Assessment: 1) 71-year-old lady status post exploratory laparotomy with 30 cm segmental small bowel resection for ischemia, necrosis and perforation, subsequent to 220 cm small bowel resection for full-thickness necrosis on second look, subsequent anastomosis and primary closure on third look. Wound VAC dressing placement for soft tissue wound at risk for infection and subsequent underlying fascial dehiscence. Persistent loose bowel movements, Clostridium difficile screen negative, improving on loperamide. Poor oral intake, presently on TPN. 2) Physical deconditioning. 3) Oral anticoagulation on Coumadin for remote history of DVT, pulmonary embolus and hypercoagulable state with MTHFR mutation. 4) Super morbid obesity with BMI in excess of 50. 5) Chronic congestive heart failure, long-standing atrial fibrillation, stage IV chronic kidney disease and cardiorenal syndrome. Plan: Discontinue Dilaudid given ongoing side effects. Started on oral narcotic every 6 hours in addition to Tylenol. Abdominal drain removed at bedside. Take requested for intermediates of IV access, once in place her subclavian line should be removed and she should be okay to resume full dose oral anticoagulation thereafter if felt to be medically necessary. We'll start Megace for appetite stimulation. Remove rectal tube if possible given risk for ulceration. Nephrology and medical notes reviewed and appreciated. Continue with Friday wound VAC dressing changes. Her most pressing goals currently are getting her moving again and working on her appetite. Abdomen is around 8 today, I suspect that there is a dilutional component. If it is any lower tomorrow I would entertain one unit PRBCs given the patient's overall appearance of general malaise and weakness. Time with Patient: Greater than 30
--- NOTE | 2021-12-20 13:03 | XR ---
EXAMINATION TYPE: XR chest 1V DATE OF EXAM: 12/20/2021 COMPARISON: Chest x-ray 12/15/2021 HISTORY: Shortness of breath TECHNIQUE: Single frontal view of the chest is obtained. FINDINGS: There is improvement in the prominence the central vascularity and interstitium, improveme nt in aeration within the lungs. Patient is rotated. Persistent obscured left hemidiaphragm is noted, there is increased retrocardiac density. No evident pneumothorax. There is a right-sided subclavian central venous catheter, distal tip in the right atrium. The heart remains enlarged. The osseous str uctures are stable, arthropathy noted in the shoulders, spondylosis noted in the visualized spine. Th ere are overlying artifacts. IMPRESSION: Improvement in patient's volume status, aeration, is likely persistent left lower lobe a telectasis versus pneumonia and associated effusion. Cardiomegaly.
[2021-12-20] MEDS ORDERED: LIDOCAINE 1% INJ 10MG/ML (20 ML MDV) ONE (13:55)
[2021-12-20] MEDS ORDERED: LIDOCAINE 1% INJ 10MG/ML (20 ML MDV) SQ ONE (14:27)
--- NOTE | 2021-12-20 15:07 | XR ---
EXAMINATION TYPE: XR chest 1V portable DATE OF EXAM: 12/20/2021 CLINICAL HISTORY: PICC line insertion. TECHNIQUE: Single AP portable supine view of the chest is obtained. COMPARISON: Chest x-ray from earlier today FINDINGS: New right-sided PICC line terminates near the level of brachiocephalic vein confluence. St able right subclavian central venous catheter. Persistent bibasilar opacities and mild cardiomegaly. No pneumothorax seen. Degenerative change right glenohumeral joint redemonstrated. IMPRESSION: As above.
--- NOTE | 2021-12-20 15:50 | XR ---
EXAMINATION TYPE: XR chest 1V portable DATE OF EXAM: 12/20/2021 COMPARISON: Chest x-ray same dated earlier time HISTORY: PICC line repositioned TECHNIQUE: Single frontal view of the chest is obtained. FINDINGS: There is no real change IMPRESSION: PICC line tip overlying the region of the superior vena cava no evident complication sta tus post PICC line placement
--- NOTE | 2021-12-20 15:56 | IR ---
EXAMINATION TYPE: IR cvc insert >=5 years DATE OF EXAM: 12/20/2021 COMPARISON: NONE HISTORY: Renal failure, needs long-term intravenous access for total parenteral reduction FINDINGS: Maximal barrier technique was utilized. Hand hygiene obtained with soap and water and alco hol-based hand rub. The skin overlying the right basilic vein was localized with ultrasound and noted to be compressible and patent by ultrasound. An ultrasound image was obtained and submitted on ivelisse ent's chart. Sterile technique utilized with the ultrasound machine. The skin overlying was prepped a nd draped and Lidocaine used for local anesthesia. A skin cindy was made with a scalpel. Access was gained to the vein under direct ultrasound guidance with a 21-gauge needle and a 0.018 inch wire was advanced. Access site was dilated with a peel-away sheath and the catheter tailored to length. Cath eter advanced centrally and a post procedure chest x-ray verified placement with tip at the superior vena cava following manipulation, additional chest x-ray. Catheter was fixed to the skin and a steri le dressing placed. Hemostasis achieved and the catheter was aspirated and flushed with sterile sali ne. The patient remained in stable condition. IMPRESSION: STATUS POST ULTRASOUND GUIDED PICC LINE PLACEMENT, READY FOR USE. THIS PROCEDURE WAS PER FORMED BY THE UNDERSIGNED.
[2021-12-20] MEDS: CHOLESTYRAMINE (WITH SUGAR) 4 GM PACKET PO SCH ×3 (16:12→20:52)
[2021-12-20] MEDS: MEGESTROL 40 MG TAB PO SCH ×3 (16:13→20:52)
[2021-12-20] MEDS: 1: MVI, ADULT NO.4 WITH VIT K 10 ML, TRACE (CONC-1ML/DOSE) 1 ML, PARENTERAL ELECTROLYTES IV SCH ×5 (16:14)
--- NOTE | 2021-12-20 17:09 | P.PN ---
Subjective Progress Note Date: 12/20/21 Principal diagnosis: Abdominal sepsis Patient is a 71 year female admitted to the hospital with abdominal pain has been diagnosis stimulated went hernia with ischemic bowel and perforation in this patient who is status post initial surgery with reduction of hernia and resection of the ischemic portion of small bowel patient was taken back to the OR on 12/12/2021 and the patient is status post [id number] antimesenteric ileocolonic anastomosis with closure of mesenteric defect and application of wound VAC. On today's evaluation that is 12/20/2021, the patient continues to be afebrile, the patient denies any chest pain shortness of breath or cough, the patient a bdominal pain is currently controlled and no nausea associated with slowing down the nursing staff, still have the fecal management system in place Objective - Vital Signs Vital signs: Vital Signs Temp 97.9 F 12/20/21 08:00 Pulse 99 12/20/21 08:00 Resp 18 12/20/21 08:00 BP 117/54 12/20/21 08:00 Pulse Ox 99 12/20/21 08:00 Intake & Output 12/19/21 12/20/21 12/20/21 18:59 06:59 18:59 Intake Total 968 570 Output Total 100 1665 850 Balance 868 -1095 -850 Weight 136 kg 132.5 kg Intake: Intake, IV Titration 850 200 Amount Parenteral Electrolytes 600 20 ml Potassium Chloride 40 meq In Amino Acids 5 % /Dextrose 20 % 1,000 ml @ 50 mls/hr IV .BY DURATION [facility] Rx#: [id number] Potassium Chloride 10 meq 100 In Water For Injection 1 100ml.bag @ 100 mls/hr IVPB ONCE [facility] Rx#: [id number] cefTRIAXone 2 gm In 50 Sodium Chloride 0.9% 50 ml @ 100 mls/hr IVPB Q24HR [facility] Rx#:[id number] metroNIDAZOLE-NS PMX 500 100 200 mg In Saline 1 100ml.bag @ 100 mls/hr IVPB Q8HR [facility] Rx#:[id number] Oral 118 370 Output: Drainage 100 240 Abdomen 200 Left Lower Abdomen 100 40 Urine 1425 850 Uretheral ([place]) 1425 Other: Voiding Method Indwelling Catheter Indwelling Catheter ABP, PAP, CO, CI - Last Documented Arterial Blood Pressure 136/60 - Exam GENERAL DESCRIPTION: An elderly female lying in bed RESPIRATORY SYSTEM: Unlabored breathing , decreased breath sounds at bases HEART: S1 S2 regular rate and rhythm , ABDOMEN: Soft , midline abdominal wound is covered with a wound VAC EXTREMITIES: No edema feet - Labs CBC & Chem 7: 12/20/21 07:33 12/20/21 07:33 Labs: Abnormal Lab Results - Last 24 Hours (Table) 12/19/21 12/20/21 12/20/21 Range/Units 17:11 00:03 06:05 WBC (3.8-10.6) k/uL RBC (3.80-5.40) m/uL Hgb (11.4-16.0) gm/dL Hct (34.0-46.0) % MCHC (31.0-37.0) g/dL RDW (11.5-15.5) % Neutrophils # (1.3-7.7) k/uL Chloride (98-107) mmol/L BUN (7-17) mg/dL Creatinine (0.52-1.04) mg/dL Glucose (74-99) mg/dL POC Glucose (mg/dL) 119 H 135 H 106 H (75-99) mg/dL Calcium (8.4-10.2) mg/dL 12/20/21 12/20/21 12/20/21 Range/Units 07:33 07:33 11:43 WBC 11.6 H (3.8-10.6) k/uL RBC 2.68 L (3.80-5.40) m/uL Hgb 8.0 L (11.4-16.0) gm/dL Hct 26.5 L (34.0-46.0) % MCHC 30.4 L (31.0-37.0) g/dL RDW 16.6 H (11.5-15.5) % Neutrophils # 9.0 H (1.3-7.7) k/uL Chloride 108 H (98-107) mmol/L BUN 65 H (7-17) mg/dL Creatinine 2.82 H (0.52-1.04) mg/dL Glucose 113 H (74-99) mg/dL POC Glucose (mg/dL) 131 H (75-99) mg/dL Calcium 8.2 L (8.4-10.2) mg/dL Assessment and Plan (1) Sepsis Current Visit: Yes Status: Acute Code(s): A41.9 - SEPSIS, UNSPECIFIED ORGANISM SNOMED Code(s): 39254656 Plan: 1patient presented to hospital with abdominal pain and did have evidence of elevated white count tachycardia meeting criteria for sepsis sources incarcerated abdominal hernia with perforated small bowel status post resection and need to cover for the enteric gram-negative with a likely pathogen, patient is currently covered with Zosyn however will be switched to Rocephin and Flagyl because of diarrhea 2- diarrhea likely antibiotic associated , Zosyn has been discontinued, and the patient diarrhea seems to be improving, continue with a short course of Rocephin and Flagyl Time with Patient: Less than 30
[2021-12-20 17:54] LABS: Glucose,Whole Blood 112 mg/dL (75-99)
--- NOTE | 2021-12-20 21:27 | P.PN ---
Subjective Progress Note Date: 12/20/21 (delayed charting seen at 1400) Principal diagnosis: abdominal pain Patient is a 71-year-old female with a history of A. fib anticoagulated on Coumadin, history of prior pulmonary embolism and DVT with known MTHFR, systolic congestive heart failure with ejection fraction 45-50% (recovered from 30-35%) and chronic kidney disease stage IV following with nephrology on an outpatient basis who presented for abdominal wall hernia that is no longer reducible. On arrival she was found to be tachycardic. Laboratory analysis showed a white blood cell count of 13.8, creatinine was near her baseline at 2.13 consistent with her chronic kidney disease stage IV, glucose was mildly elevated at 153 on the laboratory analysis is otherwise unremarkable. She underwent a CT abdomen and pelvis which demonstrated a large lower anterior abdominal wall ventral hernia containing multiple bowel loops without signs of obstruction. In the emergency department she was started on Zosyn, IV fluids, and pain medications. She was placed in observation for further surgical evaluation. She underwent urgery surgical intervention with exploratory laparotomy and small bowel resection and reduction of ventral hernia. She was transferred to the ICU with temporary abdominal closure device in place and intubated. Patient ultimately required an additional second woke with resection of 220 cm of necrotic small bowel, right hemicolectomy, and temporary abdominal closure on 12/11/21. She then went back to the OR for a third time resulting in a side to side antimesenteric ileocolonic anastomosis with closure of mesenteric defect, fascial block, and primary fascial closure. Patient seen and examined at bedside. She still is not very hungry but has been drinking well. Pain is well controlled. Denies any shortness of breath. Feeling very weak and tired. General: Ill-appearing, appears older than stated age, obese, moderate distress Derm: warm, dry Head: atraumatic, normocephalic, symmetric Eyes: EOMI, no lid lag, anicteric sclera Mouth: no lip lesion, mucus membranes moist Cardiovascular: S1S2 reg, no murmur, positive posterior tibial pulse bilateral, Lungs: CTA bilateral, no rhonchi, no rales , no accessory muscle use Abdominal: soft, wound VAC in place, tender to palpation diffusely, unable to assess for organomegaly secondary to morbid obesity. Ext: no gross muscle atrophy, 1+ edema, no contractures Neuro: CN II-XI grossly intact, no focal neuro deficits Psych: Alert, oriented, appropriate affect Assessment/plan: Septic Shock from Small Bowel Necrosis and Perforation Strangulated abdominal wall hernia to the left of the umbilicus containing loops of bowel -December 09 status post exploratory laparotomy, excision of umbilicus hernia sac, small bowel resection, reduction of ventral hernia, and wound VAC placement. -December 11 Second Look laparotomy with abdominal exploration, resection of 220 cm necrotic small bowel segment, right hemicolectomy, temporary abdominal closure with Apthera VAC. -December 12 Third look exploratory laparotomy with [id number] antimesenteric ileocolonic anastomosis with closure of mesenteric defect, fascial block, primary fascial closure, application of negative pressure wound VAC dressing over 20 x 20 x 5 cm midline surgical soft tissue wound. -Infectious disease recommendations appreciated - Can resume coumadin once PICC line in place. -Rocephin and Flagyl. -Tapering TPN - encourage oral intake Diarrhea - suspect due to short bowel syndrome - c diff negative - would consider codeine but patient is on oxycodone - if persists consult GI - continue with immodium - d/c fecal management system Atrial fibrillation with RVR - resume coumadin in AM -Lopressor 25 twice a day Acute blood loss anemia, iron deficiency -Anticipated outcome of surgery -Follow CBC -IV iron held due to abdoinal infection - aranesp Cardiomyopathy with ejection fraction 20-25% with acurte exacerbation - on IV lasix (nephrology) -Not chronically on CHARLES inhibitor -Lopressor 25 twice a day and titrate as needed -Continue with tele -reconsult cardiology Acute kidney injury possibly secondary to ATN Chronic kidney disease stage IV -Started hemodialysis December 12 last HD 12/17 -Hemodialysis on hold per nephrology -Currently on Lasix, good urine output. Hypercoaguability with MTHFR History of DVT and pulmonary embolism -on heparin TID for DVT PPx Severe obesity with BMI 52.1 - anyticipate weight loss due to short gut History of osteoarthritis. History of uterine cancer. History of gout. DVT prophylaxis: heparin Discussed with: patient, nursing Anticipated discharge: undetermined Anticipated discharge place: rehab A total of 45 minutes was spent on the care of this complex patient more than 50% of the time was spent in counseling and care coordination. Objective - Vital Signs Vital signs: Vital Signs Temp 98.2 F 12/20/21 16:00 Pulse 92 12/20/21 16:00 Resp 17 12/20/21 16:00 BP 115/68 12/20/21 16:00 Pulse Ox 100 12/20/21 16:00 Intake & Output 12/20/21 12/20/21 12/21/21 06:59 18:59 06:59 Intake Total 570 720 Output Total 1665 1710 Balance -1095 -990 Weight 132.5 kg Intake: Intake, IV Titration 200 Amount metroNIDAZOLE-NS PMX 500 200 mg In Saline 1 100ml.bag @ 100 mls/hr IVPB Q8HR [facility] Rx#:[id number] Oral 370 720 Output: Drainage 240 10 Abdomen 200 Left Lower Abdomen 40 10 Urine 1425 1700 Uretheral (Alvarado) 1425 Other: Voiding Method Indwelling Catheter Indwelling Catheter ABP, PAP, CO, CI - Last Documented Arterial Blood Pressure 136/60 - Labs CBC & Chem 7: 12/20/21 07:33 12/20/21 07:33 Labs: Abnormal Lab Results - Last 24 Hours (Table) 12/20/21 12/20/21 12/20/21 Range/Units 00:03 06:05 07:33 WBC (3.8-10.6) k/uL RBC (3.80-5.40) m/uL Hgb (11.4-16.0) gm/dL Hct (34.0-46.0) % MCHC (31.0-37.0) g/dL RDW (11.5-15.5) % Neutrophils # (1.3-7.7) k/uL Chloride 108 H (98-107) mmol/L BUN 65 H (7-17) mg/dL Creatinine 2.82 H (0.52-1.04) mg/dL Glucose 113 H (74-99) mg/dL POC Glucose (mg/dL) 135 H 106 H (75-99) mg/dL Calcium 8.2 L (8.4-10.2) mg/dL 12/20/21 12/20/21 12/20/21 Range/Units 07:33 11:43 17:49 WBC 11.6 H (3.8-10.6) k/uL RBC 2.68 L (3.80-5.40) m/uL Hgb 8.0 L (11.4-16.0) gm/dL Hct 26.5 L (34.0-46.0) % MCHC 30.4 L (31.0-37.0) g/dL RDW 16.6 H (11.5-15.5) % Neutrophils # 9.0 H (1.3-7.7) k/uL Chloride (98-107) mmol/L BUN (7-17) mg/dL Creatinine (0.52-1.04) mg/dL Glucose (74-99) mg/dL POC Glucose (mg/dL) 131 H 112 H (75-99) mg/dL Calcium (8.4-10.2) mg/dL
[2021-12-20 23:59] LABS: Glucose,Whole Blood 140 mg/dL (75-99)
[2021-12-21] MEDS: metroNIDAZOLE-NS PMX 500 MG in SALINE 1 100ML.BAG IVPB SCH ×4 (00:03→23:10)
[2021-12-21] MEDS: LOPERAMIDE 2 MG CAP PO SCH ×5 (00:04→21:22)
[2021-12-21] MEDS: HEPARIN SODIUM,PORCINE/PF 5,000 UNIT/0.5 ML SYRINGE SQ SCH ×2 (00:04→10:46)
[2021-12-21] MEDS: ACETAMINOPHEN TAB 325 MG TAB PO PRN (00:04)
[2021-12-21] MEDS: INSULIN ASPART (NovoLOG) 100 UNIT/ML VIAL SQ SCH ×5 (00:48→23:59)
[2021-12-21 06:13] LABS: Glucose,Whole Blood 132 mg/dL (75-99)
[2021-12-21 08:05] LABS: Anisocytosis Slight; Basophils % (A) 0 %; Eosinophils # (A) 0.4 k/uL (0-0.7); Eosinophils % (A) 4 %; HCT 25.1 % (34.0-46.0); HGB 7.7 gm/dL (11.4-16.0); Hypochromasia Marked; Lymphocytes # (A) 1.2 k/uL (1.0-4.8); Lymphocytes % (A) 11 %; MCH 29.9 pg (25.0-35.0); MCHC 30.7 g/dL (31.0-37.0); MCV 97.3 fL (80.0-100.0); Macrocytosis Slight; Mean Platelet Volume 8.8; Monocytes # (A) 0.6 k/uL (0-1.0); Monocytes % (A) 5 %; Neutrophils # (A) 8.4 k/uL (1.3-7.7); Neutrophils % (A) 77 %; Platelet Count 210 k/uL (150-450); RBC 2.58 m/uL (3.80-5.40); RDW 16.6 % (11.5-15.5); WBC 10.9 k/uL (3.8-10.6)
[2021-12-21 08:25] LABS: Calcium 8.4 mg/dL (8.4-10.2); Magnesium 1.7 mg/dL (1.6-2.3); Phosphorus 2.4 mg/dL (2.5-4.5); Potassium 3.5 mmol/L (3.5-5.1)
[2021-12-21] MEDS ORDERED: SODIUM FERRIC GLUCONAT-SUCROSE 125 MG in SODIUM CHLORIDE 0.9% 100 ML IVPB SCH (09:00)
[2021-12-21] MEDS ORDERED: POTASSIUM CHLORIDE ER 20 MEQ TAB.ER PO STA (09:49)
--- NOTE | 2021-12-21 09:50 | P.PN ---
Subjective Patient is seen in follow-up for acute kidney injury on chronic kidney disease. Started on hemodialysis 12/12/2021. Receiving TPN. Oral intake just fair. Urine output remains good - over 2 L in last 24 hours. Patient is resting in bed. Blood pressure stable. On room air. Renal function better. Creatinine 2.66 today. Patient is confused this morning. Vital signs are stable. General: Awake. LUNGS: Breath sounds decreased. HEART: Rate and Rhythm are regular. ABDOMEN: No distention noted. EXTREMITITES: Trace edema. Objective - Vital Signs Vital signs: Vital Signs Temp 97.9 F 12/21/21 08:00 Pulse 82 12/21/21 08:00 Resp 17 12/21/21 08:00 BP 106/64 12/21/21 08:00 Pulse Ox 92 L 12/21/21 08:00 Intake & Output 12/20/21 12/21/21 12/21/21 18:59 06:59 18:59 Intake Total 720 250 240 Output Total 1710 1800 Balance -990 -1550 240 Intake: Oral 720 250 240 Output: Drainage 10 200 Abdomen 200 Left Lower Abdomen 10 Urine 1700 1600 Uretheral (Alvarado) 1600 Other: Voiding Method Indwelling Catheter Indwelling Catheter ABP, PAP, CO, CI - Last Documented Arterial Blood Pressure 136/60 - Labs CBC & Chem 7: 12/21/21 07:29 12/21/21 07:29 Labs: Abnormal Lab Results - Last 24 Hours (Table) 12/20/21 12/20/21 12/20/21 Range/Units 11:43 17:49 23:57 WBC (3.8-10.6) k/uL RBC (3.80-5.40) m/uL Hgb (11.4-16.0) gm/dL Hct (34.0-46.0) % MCHC (31.0-37.0) g/dL RDW (11.5-15.5) % Neutrophils # (1.3-7.7) k/uL Chloride (98-107) mmol/L BUN (7-17) mg/dL Creatinine (0.52-1.04) mg/dL Glucose (74-99) mg/dL POC Glucose (mg/dL) 131 H 112 H 140 H (75-99) mg/dL Phosphorus (2.5-4.5) mg/dL 03/18/22 03/18/22 03/18/22 Range/Units 06:12 07:29 07:29 WBC 10.9 H (3.8-10.6) k/uL RBC 2.58 L (3.80-5.40) m/uL Hgb 7.7 L (11.4-16.0) gm/dL Hct 25.1 L (34.0-46.0) % MCHC 30.7 L (31.0-37.0) g/dL RDW 16.6 H (11.5-15.5) % Neutrophils # 8.4 H (1.3-7.7) k/uL Chloride 108 H (98-107) mmol/L BUN 71 H (7-17) mg/dL Creatinine 2.66 H (0.52-1.04) mg/dL Glucose 120 H (74-99) mg/dL POC Glucose (mg/dL) 132 H (75-99) mg/dL Phosphorus 2.4 L (2.5-4.5) mg/dL Assessment and Plan Plan: Assessment: 1. Acute kidney injury secondary to ATN secondary to hypotension/shock. Started on hemodialysis 12/12/2021. Has a right femoral catheter. Last dialysis 12/17/2021. Creatinine 2.66 today. Nonoliguric. 2. Chronic kidney disease stage IV secondary to cardiorenal syndrome with baseline creatinine in the range of 2-2.5. UA benign. No hydronephrosis noted on CAT scan. 3. 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 Further resection done 12/11/2021 and 12/12/2021. 4. Acute on chronic systolic CHF with ejection fraction of 40-45%. 5. Hypokalemia from diuresis. Replaced. 6. Anemia of chronic kidney disease. Iron deficiency noted. IV iron held due to abdominal infection. On Aranesp. 7. A. fib with RVR. Cardiology following. Plan: Continue to hold hemodialysis. Monitor for renal recovery. Good urine output. Replace potassium. Currently receiving TPN. Strict I's and O's. Avoid nephrotoxins. Maintain IV Lasix. Discontinue femoral dialysis catheter.
[2021-12-21] MEDS ORDERED: POTASSIUM PHOSPHATE 10 MMOL in SODIUM CHLORIDE 0.9% 100 ML IV ONE (10:00)
--- NOTE | 2021-12-21 10:29 | P.PN ---
Subjective This is a 71-year-old female with a pasti medical history of permanent atrial fibrillation on long-term Coumadin, hypertension, dyslipidemia, pulmonary embolism 2009 following DVT in the knee, chronic heart failure, chronic kidney disease stage IV, morbid obesity, osteoporosis with compression fractures of the lumbar spine. 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 She initially presented to the hospital on 12/09/2021 with strangulated abdominal wall hernia and septic shock. She underwent abdominal surgery with exploratory laparotomy with bowel r esection and excision of umbilical hernia sac on 12/09/2021. Further resection done 12/11/2021 and 12/12/2021. Patient's hospital course was also complicated by acute kidney injury requiring dialysis on 12/12/21, last dialysis was 12/17/2021. Patient was extubated on 12/14/2021. We were initially consulted for atrial fibrillation RVR and are seeing the patient for congestive heart failure and Limited echo on 12/10/2021 report revealed decreased EF 20-25%. Patient seen and examine at bedside, she is alert, she is oriented to person, place, however, does appear confused about her medical care and situation, appears to be some hospital delirium. She denies any shortness of breath or chest pain. She has not needed dialysis since 12/17/21. She is hemodynamically stable. She is seeing improvement in renal function with IV Lasix. She is in atrial fibrillation with rates controlled. Patient with over 3L urine output over the past 24 hours. Meds: Her coumadin remains on hold, metoprolol titrate 25 mg twice a day, IV Lasix 40 mg daily Labs: WBC 10.9, hemoglobin 7.7, platelets 210, sodium 140, potassium 3.5, BUN 71, serum iron 2.6, magnesium 1.7 PHYSICAL EXAMINATION Blood pressure 106/64, heart rate 82, afebrile, oxygen saturation 75% on room air CONSTITUTIONAL: No apparent distress. HEENT: Head is normocephalic. Pupils are equal, round. Sclerae anicteric. Mucous membranes of the mouth are moist. No JVD. CHEST EXAMINATION: Lungs are diminished to auscultation. No chest wall tend erness is noted on palpation or with deep breathing. HEART EXAMINATION: Irregular rate and rhythm. S1, S2 heard. ABDOMEN: Soft, nontender. Positive bowel sounds. EXTREMITIES: bilateral lower extremity edema and no calf tenderness. NEUROLOGIC EXAMINATION: Patient is awake, alert and oriented x 2- confused about situation and medical management ASSESSMENT Strangulated abdominal wall hernia s/p exploratory laparotomy with bowel resection and excision of umbilical hernia sac on 12/09/2021. Further resection done 12/11/2021 and 12/12/2021. Cardiomyopathy, unclear if ischemic or non ischemic, EF 20-25%, prior Echo with EF 45-50% in 08/2021 Acute on chronic heart failure with reduced ejection fraction Permanent atrial fibrillation on long-term Coumadin outpatient Septic shock Acute kidney injury, started on hemodialysis 12/12/2021, placement of right femoral catheter. Last dialysis 12/17/2021. Hypertension Dyslipidemia Chronic DVT bilateral lower extremities History of pulmonary embolism 2008 following DVT in the knee Chronic kidney disease stage IV History of osteoporosis with compression fractures of the lumbar spine History of Covid-19 pneumonia in August 2021 PLAN Limited echocardiogram on 12/[address] Lopez, images are not of best quality and patient's EF appears similar to in August 2021, does not appear to be that significantly decreased. We will repeat limited echo with definity today. Start metoprolol succinate 25mg daily. Discontinue metoprolol tartrate Maintain IV Lasix, monitor I/Os, daily weights, renal function and electrolytes Unable to start ACEI/ARB or spironolactone due to renal function Per nephrology, plan to remove patient's femoral catheter possibly today Per surgery, ok to restart anticoagulation when subclavian lines are removed Further recommendations based on clinical course Nurse practitioner note has been reviewed by physician. Signing provider agrees with the documented findings, assessment, and plan of care. Objective - Vital Signs Vital signs: Vital Signs Temp 97.9 F 12/20/21 08:00 Pulse 99 12/20/21 08:00 Resp 18 12/20/21 08:00 BP 117/54 12/20/21 08:00 Pulse Ox 99 12/20/21 08:00 Intake & Output 12/19/21 12/20/21 12/20/21 18:59 06:59 18:59 Intake Total 968 570 240 Output Total 100 3385 850 Balance 868 -1095 -610 Weight 136 kg 132.5 kg Intake: Intake, IV Titration 850 200 Amount Parenteral Electrolytes 600 20 ml Potassium Chloride 40 meq In Amino Acids 5 % /Dextrose 20 % 1,000 ml @ 50 mls/hr IV .BY DURATION [facility] Rx#: [id number] Potassium Chloride 10 meq 100 In Water For Injection 1 100ml.bag @ 100 mls/hr IVPB ONCE STA Rx#: [id number] cefTRIAXone 2 gm In 50 Sodium Chloride 0.9% 50 ml @ 100 mls/hr IVPB Q24HR [facility] Rx#:[id number] metroNIDAZOLE-NS PMX 500 100 200 mg In Saline 1 100ml.bag @ 100 mls/hr IVPB Q8HR [facility] Rx#:[id number] Oral 118 370 240 Output: Drainage 100 240 Abdomen 200 Left Lower Abdomen 100 40 Urine 1425 850 Uretheral (Alvarado) 1425 Other: Voiding Method Indwelling Catheter Indwelling Catheter ABP, PAP, CO, CI - Last Documented Arterial Blood Pressure 136/60 - Labs CBC & Chem 7: 12/21/21 07:29 12/21/21 07:29 Labs: Abnormal Lab Results - Last 24 Hours (Table) 12/19/21 12/20/21 12/20/21 Range/Units 17:11 00:03 06:05 WBC (3.8-10.6) k/uL RBC (3.80-5.40) m/uL Hgb (11.4-16.0) gm/dL Hct (34.0-46.0) % MCHC (31.0-37.0) g/dL RDW (11.5-15.5) % Neutrophils # (1.3-7.7) k/uL Chloride (98-107) mmol/L BUN (7-17) mg/dL Creatinine (0.52-1.04) mg/dL Glucose (74-99) mg/dL POC Glucose (mg/dL) 119 H 135 H 106 H (75-99) mg/dL Calcium (8.4-10.2) mg/dL 12/20/21 12/20/21 12/20/21 Range/Units 07:33 07:33 11:43 WBC 11.6 H (3.8-10.6) k/uL RBC 2.68 L (3.80-5.40) m/uL Hgb 8.0 L (11.4-16.0) gm/dL Hct 26.5 L (34.0-46.0) % MCHC 30.4 L (31.0-37.0) g/dL RDW 16.6 H (11.5-15.5) % Neutrophils # 9.0 H (1.3-7.7) k/uL Chloride 108 H (98-107) mmol/L BUN 65 H (7-17) mg/dL Creatinine 2.82 H (0.52-1.04) mg/dL Glucose 113 H (74-99) mg/dL POC Glucose (mg/dL) 131 H (75-99) mg/dL Calcium 8.2 L (8.4-10.2) mg/dL
[2021-12-21] MEDS: PANTOPRAZOLE 40 MG/10 ML VIAL IV SCH (10:47)
[2021-12-21] MEDS: FUROSEMIDE 10 MG/ML 4 ML VIAL IV SCH ×2 (10:47→21:22)
[2021-12-21] MEDS: 1: MVI, ADULT NO.4 WITH VIT K 10 ML, TRACE (CONC-1ML/DOSE) 1 ML, PARENTERAL ELECTROLYTES IV SCH ×5 (11:15)
[2021-12-21 11:54] LABS: Glucose,Whole Blood 143 mg/dL (75-99)
--- NOTE | 2021-12-21 12:50 | P.PN ---
Subjective Progress Note Date: 12/21/21 Principal diagnosis: Strangulated ventral hernia with small bowel ischemia and necrosis, morbid obesity, history of hypercoagulable state maintained on Coumadin Patient seen and examined at bedside. Remains lethargic, hasn't been mobile in any meaningful way. Pain level is better today than yesterday but still admits to 7 incisional pains with position changes. Tolerated a small amount of regular diet today, continues with loose bowel movements. No reported fever or chills. No plans for additional hemodialysis in the short-term. Patient had PICC placed yesterday and right subclavian line discontinued. Continues with TPN. Blood work today shows a hemoglobin of 7.7, slightly down from yesterday. Objective - Vital Signs Vital signs: Vital Signs Temp 97.9 F 12/21/21 08:00 Pulse 82 12/21/21 08:00 Resp 17 12/21/21 08:00 BP 106/64 12/21/21 08:00 Pulse Ox 92 L 12/21/21 08:00 Intake & Output 12/20/21 12/21/21 12/21/21 18:59 06:59 18:59 Intake Total 1760 250 240 Output Total 1710 1800 Balance 50 -1550 240 Intake: Intake, IV Titration 1040 Amount Parenteral Electrolytes 1040 20 ml Potassium Chloride 40 meq In Amino Acids 5 % /Dextrose 20 % 1,000 ml @ 50 mls/hr IV .BY DURATION [facility] Rx#: [id number] Oral 720 250 240 Output: Drainage 10 200 Abdomen 200 Left Lower Abdomen 10 Urine 1700 1600 Uretheral (Alvarado) 1600 Other: Voiding Method Indwelling Catheter Indwelling Catheter ABP, PAP, CO, CI - Last Documented Arterial Blood Pressure 136/60 - Constitutional General appearance: Present: morbidly obese - EENT Eyes: Present: PERRLA ENT: Present: hearing grossly normal - Respiratory Respiratory: bilateral: CTA - Cardiovascular Rhythm: irregularly irregular - Gastrointestinal Gastrointestinal Comment(s): Wound VAC dressing is in place to suction without leak, mild diffuse abdominal tenderness to palpation, no guarding or rebound. - Neurologic Neurologic: Present: CNII-XII intact - Musculoskeletal Musculoskeletal: Present: generalized weakness - Psychiatric Psychiatric: Present: A&O x's 3, appropriate affect, intact judgment & insight - Labs CBC & Chem 7: 12/21/21 07:29 12/21/21 07:29 Labs: Abnormal Lab Results - Last 24 Hours (Table) 12/20/21 12/20/21 12/21/21 Range/Units 17:49 23:57 06:12 WBC (3.8-10.6) k/uL RBC (3.80-5.40) m/uL Hgb (11.4-16.0) gm/dL Hct (34.0-46.0) % MCHC (31.0-37.0) g/dL RDW (11.5-15.5) % Neutrophils # (1.3-7.7) k/uL Chloride (98-107) mmol/L BUN (7-17) mg/dL Creatinine (0.52-1.04) mg/dL Glucose (74-99) mg/dL POC Glucose (mg/dL) 112 H 140 H 132 H (75-99) mg/dL Phosphorus (2.5-4.5) mg/dL 12/21/21 12/21/21 12/21/21 Range/Units 07:29 07:29 11:51 WBC 10.9 H (3.8-10.6) k/uL RBC 2.58 L (3.80-5.40) m/uL Hgb 7.7 L (11.4-16.0) gm/dL Hct 25.1 L (34.0-46.0) % MCHC 30.7 L (31.0-37.0) g/dL RDW 16.6 H (11.5-15.5) % Neutrophils # 8.4 H (1.3-7.7) k/uL Chloride 108 H (98-107) mmol/L BUN 71 H (7-17) mg/dL Creatinine 2.66 H (0.52-1.04) mg/dL Glucose 120 H (74-99) mg/dL POC Glucose (mg/dL) 143 H (75-99) mg/dL Phosphorus 2.4 L (2.5-4.5) mg/dL Assessment and Plan Assessment: 1) 71-year-old lady status post exploratory laparotomy with 30 cm segmental small bowel resection for ischemia, necrosis and perforation, subsequent to 220 cm small bowel resection for full-thickness necrosis on second look, subsequent anastomosis and primary closure on third look. Wound VAC dressing placement for soft tissue wound at risk for infection and subsequent underlying fascial d ehiscence. Persistent loose bowel movements, Clostridium difficile screen negative, improving on loperamide. Poor oral intake, presently on TPN. 2) Physical deconditioning, malaise and low hemoglobin. Suspect largely dilutional. 3) Oral anticoagulation on Coumadin for remote history of DVT, pulmonary embolus and hypercoagulable state with MTHFR mutation. 4) Super morbid obesity with BMI in excess of 50. 5) Chronic congestive heart failure, long-standing atrial fibrillation, stage IV chronic kidney disease and cardiorenal syndrome. Plan: Dilaudid discontinued due to side effects. Oral narcotic every 6 hours in addition to Tylenol. PICC placed for long-term IV access, and TPN until keeping up with oral intake. Okay to resume systemic anticoagulation from a surgical standpoint and felt to be necessary medically. Megace for appetite stimulation. Nephrology and medical notes reviewed and appreciated no plans for ongoing hemodialysis in the short-term. Continue with Friday wound VAC dressing changes. Her most pressing goals currently are getting her moving again and working on her appetite. 2 units PRBCs today for symptomatic Anemia with hemoglobin of 7.7. Time with Patient: Greater than 30
--- NOTE | 2021-12-21 13:34 | P.CONS ---
History of Present Illness - Reason for Consult Consult date: 12/21/21 Short-bowel syndrome Requesting physician: Shivani Jackson - Chief Complaint Abdominal pain - History of Present Illness This is a 71-year-old female who presented to the emergency department on 12/09/2021 with complaints of severe abdominal pain with a known abdominal wall hernia. She is morbidly obese, has a history of atrial fibrillation, heart failure, deep vein thrombosis, hypertension, pulmonary embolism, clotting disorder, chronic renal disease and uterine cancer status post hysterectomy. The patient was found to have an incarcerated ventral hernia and is status post exploratory laparotomy with excisional umbilical hernia repair with a total of 250 cm a small bowel resection and right hemicolectomy with repeat exploratory laparotomy with closure with wound VAC. Patient initial surgery was on 12/09/2021, she was brought back to the operating room on 12/11/2021 and again last surgery with closure and wound VAC was sent 12/12/2021. The patient has be en having 5 episodes of loose stool a day and therefore gastroenterology was consulted for possible short gut syndrome. Patient states she has not been eating much solid foods. The patient also underwent temporary hemodialysis catheter placement per recommendations from nephrology. She denies any previous history of colonoscopy. States she normally has regular bowel movements. She denies any blood in the stool. Denies any abdominal pain other than surgical pain. She has been on antibiotics, she did have a C. diff test which was negative. Review of Systems REVIEW OF SYSTEMS: CARDIOPULMONARY: No chest pain or shortness of breath. Gastrointestinal: No abdominal pain. No nausea or vomiting. No hematemesis, coffee-ground emesis. No rectal bleeding, or melena. Diarrhea, up to 5 episodes a day. This only began status post surgery. GENITOURINARY: No dysuria or hematuria. MUSCULOSKELETAL: Reports normal range of motion., Joint pain. SKIN: No rashes. No jaundice. ENDOCRINE: No chills, fevers. No excessive weight gain or loss. No polydipsia or polyuria. PSYCHIATRIC: Unremarkable. NEUROLOGY: No change in mental status. Denies dizziness, headache. ENT: Vision unremarkable. CONSTITUTIONAL: No recent weight loss. No fever, chills, night sweats. Past Medical History Past Medical History: Atrial Fibrillation, Blood Disorder, Cancer, Heart Failure, Deep Vein Thrombosis (DVT), Hypertension, Osteoarthritis (OA), Pulmonary Embolus (PE), Renal Disease Additional Past Medical History / Comment(s): mthfr, uterine cancer, gout, anemia. uses 4 prong cane OR WALKER when up. BACK PAIN, chronic kidney disease History of Any Multi-Drug Resistant Organisms: None Reported Past Surgical History: Hysterectomy, Orthopedic Surgery Additional Past Surgical History / Comment(s): plate and screws in right ankle, picc line-since removed, cortisone injections to knees Past Anesthesia/Blood Transfusion Reactions: No Reported Reaction Additional Past Anesthesia/Blood Transfusion Reaction / Comm: past blood transfusions-no reactions Past Psychological History: Depression Additional Psychological History / Comment(s): PAST HISTORY DEPRESSION (2018) no longer takes antidepressants Smoking Status: Never smoker Past Alcohol Use History: None Reported Past Drug Use History: None Reported - Past Family History Mother Family Medical History: Cancer Additional Family Medical History / Comment(s): BREAST Father Family Medical History: Coronary Artery Disease (CAD) Medications and Allergies Home Medications Medication Instructions Recorded Confirmed Type Allopurinol 100 mg PO BID 07/21/14 12/09/21 History Warfarin [Coumadin] 2.5 mg PO MOTUTHFRSA@1800 07/21/14 12/09/21 History traMADol HCL [Tramadol HCl] 100 mg PO BID 07/21/14 12/09/21 History Gabapentin [Neurontin] 100 mg PO BID 07/10/18 12/09/21 History Cholecalciferol [Vitamin D3 (25 50 mcg PO DAILY 10/10/21 12/09/21 History Mcg = 1000 Iu)] Folic Acid 0.8 mg PO DAILY 10/10/21 12/09/21 History Furosemide [Lasix] 40 mg PO DAILY 12/09/21 12/09/21 History Metoprolol Tartrate 12.5 mg PO BID 12/09/21 12/09/21 History Allergies Allergy/AdvReac Type Severity Reaction Status Date / Time aspirin Allergy Rash/Hives Verified 12/09/21 14:29 codeine Allergy Itching Verified 12/09/21 14:29 Physical Exam Vitals: Vital Signs Temp Pulse Resp BP Pulse Ox 12/21/21 08:00 97.9 F 82 17 106/64 92 L 12/21/21 04:00 98.2 F 82 20 117/52 95 12/21/21 00:00 97.9 F 91 18 129/81 95 12/20/21 20:00 98.3 F 101 H 20 98/49 98 12/20/21 16:00 98.2 F 92 17 115/68 100 12/20/21 14:00 90 18 Intake and Output 12/20/21 12/21/21 12/21/21 22:59 06:59 14:59 Intake Total 730 240 Output Total 850 1800 Balance -120 -1800 240 Intake: Oral 730 240 Output: Drainage 200 Abdomen 200 Urine 850 1600 Uretheral (Alvarado) 1600 Other: Voiding Method Indwelling Catheter Indwelling Catheter General appearance: The patient is alert, oriented, appears in no acute distress. Morbidly obese. HET: Head is normocephalic and atraumatic. Conjunctiva pink. Sclera anicteric. Neck: Supple without lymphadenopathy. Trachea midline. Heart: S1 S2. Regular rate and rhythm. Lungs: Clear to auscultation. Abdomen: Soft, morbidly obese, abdomen with wound VAC intact, nondistended with bowel sounds. No guarding or rigidity. Skin: No rashes. No jaundice. Extremities: Normal skin color and turgor. No pedal edema. Neurological: No focal deficits. Alert and oriented x3. Results CBC & Chem 7: 12/21/21 07:29 12/21/21 07:29 Labs: Abnormal Lab Results - Last 24 Hours (Table) 12/20/21 12/20/21 12/21/21 Range/Units 17:49 23:57 06:12 WBC (3.8-10.6) k/uL RBC (3.80-5.40) m/uL Hgb (11.4-16.0) gm/dL Hct (34.0-46.0) % MCHC (31.0-37.0) g/dL RDW (11.5-15.5) % Neutrophils # (1.3-7.7) k/uL Chloride (98-107) mmol/L BUN (7-17) mg/dL Creatinine (0.52-1.04) mg/dL Glucose (74-99) mg/dL POC Glucose (mg/dL) 112 H 140 H 132 H (75-99) mg/dL Phosphorus (2.5-4.5) mg/dL 03/18/22 03/18/22 03/18/22 Range/Units 07:29 07:29 11:51 WBC 10.9 H (3.8-10.6) k/uL RBC 2.58 L (3.80-5.40) m/uL Hgb 7.7 L (11.4-16.0) gm/dL Hct 25.1 L (34.0-46.0) % MCHC 30.7 L (31.0-37.0) g/dL RDW 16.6 H (11.5-15.5) % Neutrophils # 8.4 H (1.3-7.7) k/uL Chloride 108 H (98-107) mmol/L BUN 71 H (7-17) mg/dL Creatinine 2.66 H (0.52-1.04) mg/dL Glucose 120 H (74-99) mg/dL POC Glucose (mg/dL) 143 H (75-99) mg/dL Phosphorus 2.4 L (2.5-4.5) mg/dL Comments: CT abdomen and pelvis reported very large left lower anterior abdominal wall ventral hernia containing multiple loops of bowel. No sign of bowel obstruction. Renal atrophy. Apparent reduction of large fat-containing umbilical hernia compared to exam. Left-sided abdominal wall hernia is new compared to old exam. Dilated gallbladder suggestive of gallbladder dysfunction or cholecystitis also present on old exam. Bilateral pleural effusions could relate to some chronic congestive heart failure. There is some infiltrate or atelectasis at lung bases. Thoracic abnormalities new compared to old exam Assessment and Plan (1) Diarrhea Narrative/Plan: 71-year-old female who came in with severe abdominal pain found to have incarcerated ventral wall hernia. She underwent exploratory laparotomy 3 with repair of hernia with also small bowel resection. Since her surgery she's been complaining of diarrhea. She is having 5 episodes a day. Denies any previous history of chronic diarrhea. No previous colonoscopy. She is on antibiotic therapy but underwent C. difficile testing which was negative. Gastroenterology consulted for possible short-bowel syndrome. Patient is not eating much she is now on a regular diet however states when she eats she has to have a bowel movement so she has not been eating as much. Patient also had acute renal failure during this admission and was started on hemodialysis. She denies any blood in her stool or abdominal cramping. No nausea or vomiting. Likelihood diarrhea is in relation to recent surgery and bowel resection. Can consider adding Questran for stool bulking. Current Visit: Yes Status: Acute Code(s): R19.7 - DIARRHEA, UNSPECIFIED SNOMED Code(s): 90751982 (2) Morbid obesity Current Visit: Yes Status: Acute Code(s): E66.01 - MORBID (SEVERE) OBESITY DUE TO EXCESS CALORIES SNOMED Code(s): 360766171 (3) Umbilical hernia Current Visit: Yes Status: Acute Code(s): K42.9 - UMBILICAL HERNIA WITHOUT OBSTRUCTION OR GANGRENE SNOMED Code(s): 887242550 (4) Ventral hernia Current Visit: Yes Status: Acute Code(s): K43.9 - VENTRAL HERNIA WITHOUT O BSTRUCTION OR GANGRENE SNOMED Code(s): 606444810 (5) KATIA (acute kidney injury) Current Visit: No Status: Acute Code(s): N17.9 - ACUTE KIDNEY FAILURE, UNSPECIFIED SNOMED Code(s): 01775621 Plan: 1. Continue symptomatic and supportive care 2. Diet per recommendations from surgical services 3. Increase Imodium to 4 mg 4 times a day 4. Will add Questran for stool bulking 5. Continue to monitor electrolytes, replace per protocol 6. If no improvement with diarrhea made discontinue Imodium and try Lomotil 7. Recommend outpatient follow-up with gastroenterology Thank you for allowing us to participate in the care of the patient, the GI service will sign off, gastroenterology will not be available at the hospital this weekend and through next week. If further evaluation by gastroenterology is required the patient will need transfer as per the primary team's discretion. Dr. Michael Townsend I agree with the dictator's note, documented as a scribe by Vicky Oakley.
[2021-12-21] MEDS: MEGESTROL 40 MG TAB PO SCH ×4 (14:47→21:22)
[2021-12-21] MEDS: METOPROLOL TARTRATE 25 MG TAB PO SCH (15:43)
[2021-12-21] MEDS ORDERED: HEPARIN SODIUM 1,000 UN/ML (10ML VL) IV ONE (15:48)
[2021-12-21] MEDS ORDERED: HEPARIN SODIUM 1,000 UN/ML (10ML VL) IV PRN (15:48)
--- NOTE | 2021-12-21 15:56 | P.PN ---
Subjective Progress Note Date: 12/21/21 (delayed charting seen at 1130) Principal diagnosis: abdominal pain Patient is a 71-year-old female with a history of A. fib anticoagulated on Coumadin, history of prior pulmonary embolism and DVT with known MTHFR, systolic congestive heart failure with ejection fraction 45-50% (recovered from 30-35%) and chronic kidney disease stage IV following with nephrology on an outpatient basis who presented for abdominal wall hernia that is no longer reducible. On arrival she was found to be tachycardic. Laboratory analysis showed a white blood cell count of 13.8, creatinine was near her baseline at 2.13 consistent with her chronic kidney disease stage IV, glucose was mildly elevated at 153 on the laboratory analysis is otherwise unremarkable. She underwent a CT abdomen and pelvis which demonstrated a large lower anterior abdominal wall ventral hernia containing multiple bowel loops without signs of obstruction. In the emergency department she was started on Zosyn, IV fluids, and pain medications. She was placed in observation for further surgical evaluation. She underwent urgery surgical intervention with exploratory laparotomy and small bowel resection and reduction of ventral hernia. She was transferred to the ICU with temporary abdominal closure device in place and intubated. Patient ultimately required an additional second look with resection of 220 cm of necrotic small bowel, right hemicolectomy, and temporary abdominal closure on 12/11/21. She then went back to the OR for a third time resulting in a side to side antimesenteric ileocolonic anastomosis with closure of mesenteric defect, fascial block, and primary fascial closure. During her hospital stay she was followed by infectious disease, cardiology, neurology, and nephrology. She developed KATIA requiring HD, which was able to be stopped on 12/17. She had signifcant diarrhea post-op and her antibiotcs were switched, differential is negative, she was started on Imodium. She also had poor oral intake and was thought she likely had short bowel syndrome. She was subsequently started on TPN. She continued to require a wound VAC and fecal management system. Her hemodialysis catheter was removed on 12/21 as well as her central line. She had a PICC line placed on 12/20/2021. She has had slow continued improvement. Images: CT abdomen and pelvis: Very large lower anterior abdominal wall ventral hernia containing multiple loops of bowel without signs of obstruction, renal atrophy, large fat-containing umbilical hernia, left-sided abdominal wall hernia, dilated gallbladder suggestive of gallbladder dysfunction, mild bilateral pleural effusions. Echocardiogram: Ejection fraction 20-25% Patient seen and examined at bedside. She complains of feeling as though she just wants to . She lost her over 6 months ago and states there is no point in living and she has not been able to get out of her house and she is not doing well. We discussed whether this is depression or her feeling frustrated with medical events and leaning towards hospice care. She is unc ertain and will discuss with her family. She complains about severe burning in her rectal area we again discussed my recommendations for discontinuation of her rectal tube and she is in agreement. We discussed that we will remove her central line and that she will have her hemodialysis catheter removed today. General: Ill-appearing, appears older than stated age, obese, moderate distress Derm: warm, dry Head: atraumatic, normocephalic, symmetric Eyes: EOMI, no lid lag, anicteric sclera Mouth: no lip lesion, mucus membranes moist Cardiovascular: S1S2 reg, no murmur, positive posterior tibial pulse bilateral, Lungs: CTA bilateral, no rhonchi, no rales , no accessory muscle use Abdominal: soft, wound VAC in place, tender to palpation diffusely, unable to assess for organomegaly secondary to morbid obesity. Ext: no gross muscle atrophy, 1+ edema, no contractures Neuro: CN II-XI grossly intact, no focal neuro deficits Psych: Alert, oriented, upset, crying, distraught Assessment/plan: Septic Shock from Small Bowel Necrosis and Perforation Strangulated abdominal wall hernia to the left of the umbilicus containing loops of bowel -December 09 status post exploratory laparotomy, excision of umbilicus hernia sac, small bowel resection, reduction of ventral hernia, and wound VAC placement. -December 11 Second Look laparotomy with abdominal exploration, resection of 220 cm necrotic small bowel segment, right hemicolectomy, temporary abdominal closure with Apthera VAC. -December 12 Third look exploratory laparotomy with [id number] antimesenteric ileocolonic anastomosis with closure of mesenteric defect, fascial block, primary fascial closure, application of negative pressure wound VAC dressing over 20 x 20 x 5 cm midline surgical soft tissue wound. -Infectious disease recommendations appreciated - Can resume coumadin once PICC line in place. -Rocephin and Flagyl. -Tapering TPN - encourage oral intake - wound vac changes m/w/f Diarrhea due to short bowel syndrome - c diff negative - would consider codeine but patient is on oxycodone and ALLERGIC to codeine - Consult GI, tried cholestyramine 2 - continue with immodium - d/c fecal management system - continuie with TPN Atrial fibrillation with RVR - resume coumadin, bridge with heparin gtt -Lopressor 25 twice a day Acute blood loss anemia, iron deficiency -Anticipated outcome of surgery -Follow CBC - IV iron avoided due to intra-abdoinal infction - aranesp Cardiomyopathy with ejection fraction 20-25% with acurte exacerbation - on IV lasix (nephrology) -Not chronically on CHARLES inhibitor -Lopressor 25 twice a day and titrate as needed -Continue with tele - cardiology recs appreicated, await repaeat echo Acute kidney injury possibly secondary to ATN Chronic kidney disease stage IV -Started hemodialysis December 12 last HD 12/17 -Hemodialysis on hold per nephrology -Currently on Lasix, good urine output. Hypercoaguability with MTHFR History of DVT and pulmonary embolism -heparin gtt bridge to coumadin Severe obesity with BMI 52.1 - anyticipate weight loss due to short gut History of osteoarthritis. History of uterine cancer. History of gout. DVT prophylaxis: heparin Discussed with: patient, nursing, family Anticipated discharge: undetermined Anticipated discharge place: rehab A total of 35 minutes was spent on the care of this complex patient more than 50% of the time was spent in counseling and care coordination. Objective - Vital Signs Vital signs: Vital Signs Temp 97.9 F 12/21/21 08:00 Pulse 82 12/21/21 08:00 Resp 17 12/21/21 08:00 BP 106/64 12/21/21 08:00 Pulse Ox 92 L 12/21/21 08:00 Intake & Output 12/20/21 12/21/21 12/21/21 18:59 06:59 18:59 Intake Total 1760 250 240 Output Total 1710 1800 1150 Balance 50 -1550 -910 Intake: Intake, IV Titration 1040 Amount Parenteral Electrolytes 1040 20 ml Potassium Chloride 40 meq In Amino Acids 5 % /Dextrose 20 % 1,000 ml @ 50 mls/hr IV .BY DURATION [facility] Rx#: [id number] Oral 720 250 240 Output: Drainage 10 200 Abdomen 200 Left Lower Abdomen 10 Urine 1700 1600 1150 Uretheral (Alvarado) 1600 Other: Voiding Method Indwelling Catheter Indwelling Catheter # Bowel Movements 1 ABP, PAP, CO, CI - Last Documented Arterial Blood Pressure 136/60 - Labs CBC & Chem 7: 12/21/21 07:29 12/21/21 07:29 Labs: Abnormal Lab Results - Last 24 Hours (Table) 12/20/21 12/20/21 12/21/21 Range/Units 17:49 23:57 06:12 WBC (3.8-10.6) k/uL RBC (3.80-5.40) m/uL Hgb (11.4-16.0) gm/dL Hct (34.0-46.0) % MCHC (31.0-37.0) g/dL RDW (11.5-15.5) % Neutrophils # (1.3-7.7) k/uL Chloride (98-107) mmol/L BUN (7-17) mg/dL Creatinine (0.52-1.04) mg/dL Glucose (74-99) mg/dL POC Glucose (mg/dL) 112 H 140 H 132 H (75-99) mg/dL Phosphorus (2.5-4.5) mg/dL 12/21/21 12/21/21 12/21/21 Range/Units 07:29 07:29 11:51 WBC 10.9 H (3.8-10.6) k/uL RBC 2.58 L (3.80-5.40) m/uL Hgb 7.7 L (11.4-16.0) gm/dL Hct 25.1 L (34.0-46.0) % MCHC 30.7 L (31.0-37.0) g/dL RDW 16.6 H (11.5-15.5) % Neutrophils # 8.4 H (1.3-7.7) k/uL Chloride 108 H (98-107) mmol/L BUN 71 H (7-17) mg/dL Creatinine 2.66 H (0.52-1.04) mg/dL Glucose 120 H (74-99) mg/dL POC Glucose (mg/dL) 143 H (75-99) mg/dL Phosphorus 2.4 L (2.5-4.5) mg/dL
--- NOTE | 2021-12-21 15:57 | P.PN ---
Subjective Progress Note Date: 12/21/21 Principal diagnosis: Abdominal sepsis Patient is a 71 year female admitted to the hospital with abdominal pain has been diagnosis stimulated went hernia with ischemic bowel and perforation in this patient who is status post initial surgery with reduction of hernia and resection of the ischemic portion of small bowel patient was taken back to the OR on 12/12/2021 and the patient is status post [id number] antimesenteric ileocolonic anastomosis with closure of mesenteric defect and application of wound VAC. On today's evaluation that is 12/21/2021, the patient remains to be afebrile, the patient denies any chest pain shortness of breath and is breathing comfortab ly on room air, the patient abdominal pain is currently controlled and no nausea and diarrhea has decreased in frequency Objective - Vital Signs Vital signs: Vital Signs Temp 97.9 F 12/21/21 08:00 Pulse 82 12/21/21 08:00 Resp 17 12/21/21 08:00 BP 106/64 12/21/21 08:00 Pulse Ox 92 L 12/21/21 08:00 Intake & Output 12/20/21 12/21/21 12/21/21 18:59 06:59 18:59 Intake Total 1760 250 240 Output Total 1710 1800 350 Balance 50 -1550 -110 Intake: Intake, IV Titration 1040 Amount Parenteral Electrolytes 1040 20 ml Potassium Chloride 40 meq In Amino Acids 5 % /Dextrose 20 % 1,000 ml @ 50 mls/hr IV .BY DURATION [facility] Rx#: [id number] Oral 720 250 240 Output: Drainage 10 200 Abdomen 200 Left Lower Abdomen 10 Urine 1700 1600 350 Uretheral (Alvarado) 1600 Other: Voiding Method Indwelling Catheter Indwelling Catheter # Bowel Movements 1 ABP, PAP, CO, CI - Last Documented Arterial Blood Pressure 136/60 - Exam GENERAL DESCRIPTION: An elderly female lying in bed RESPIRATORY SYSTEM: Unlabored breathing , decreased breath sounds at bases HEART: S1 S2 regular rate and rhythm , ABDOMEN: Soft , midline abdominal wound is covered with a wound VAC EXTREMITIES: No edema feet - Labs CBC & Chem 7: 12/21/21 07:29 12/21/21 07:29 Labs: Abnormal Lab Results - Last 24 Hours (Table) 12/20/21 12/20/21 12/21/21 Range/Units 17:49 23:57 06:12 WBC (3.8-10.6) k/uL RBC (3.80-5.40) m/uL Hgb (11.4-16.0) gm/dL Hct (34.0-46.0) % MCHC (31.0-37.0) g/dL RDW (11.5-15.5) % Neutrophils # (1.3-7.7) k/uL Chloride (98-107) mmol/L BUN (7-17) mg/dL Creatinine (0.52-1.04) mg/dL Glucose (74-99) mg/dL POC Glucose (mg/dL) 112 H 140 H 132 H (75-99) mg/dL Phosphorus (2.5-4.5) mg/dL 12/21/21 12/21/21 12/21/21 Range/Units 07:29 07:29 11:51 WBC 10.9 H (3.8-10.6) k/uL RBC 2.58 L (3.80-5.40) m/uL Hgb 7.7 L (11.4-16.0) gm/dL Hct 25.1 L (34.0-46.0) % MCHC 30.7 L (31.0-37.0) g/dL RDW 16.6 H (11.5-15.5) % Neutrophils # 8.4 H (1.3-7.7) k/uL Chloride 108 H (98-107) mmol/L BUN 71 H (7-17) mg/dL Creatinine 2.66 H (0.52-1.04) mg/dL Glucose 120 H (74-99) mg/dL POC Glucose (mg/dL) 143 H (75-99) mg/dL Phosphorus 2.4 L (2.5-4.5) mg/dL Assessment and Plan (1) Sepsis Current Visit: Yes Status: Acute Code(s): A41.9 - SEPSIS, UNSPECIFIED ORGANISM SNOMED Code(s): 36586302 Plan: 1patient presented to hospital with abdominal pain and did have evidence of e levated white count tachycardia meeting criteria for sepsis sources incarcerated abdominal hernia with perforated small bowel status post resection and need to cover for the enteric gram-negative with a likely pathogen, patient is currently covered with Zosyn however will be switched to Rocephin and Flagyl because of diarrhea 2- diarrhea likely antibiotic associated , Zosyn has been discontinued, and the patient to continue with Rocephin, Flagyl and Questran Family at the bedside questions were answered Time with Patient: Less than 30
[2021-12-21 16:43] LABS: Glucose,Whole Blood 133 mg/dL (75-99)
--- NOTE | 2021-12-21 17:00 | PCN ---
PROCEDURE NOTE PREOPERATIVE DIAGNOSIS: Acute on chronic renal failure. PROCEDURE: Removal of dialysis catheter, right femoral approach. PROCEDURE DESCRIPTION: Patient was seen in the room. Right groin were prepped and drapes were applied in a sterile manner. Stitches were removed from the site of the catheter. Catheter was removed. Pressure was held for 10 minutes. Pressure dressing was applied. Patient tolerated the procedure well. NAN / CHELAN: [id number] /
[2021-12-21 18:06] LABS: INR 0.9 (<1.2); Partial Thromboplastin Time 21.3 sec (22.0-30.0); Prothrombin Time 10.2 sec (9.0-12.0)
[2021-12-21] MEDS: CHOLESTYRAMINE (WITH SUGAR) 4 GM PACKET PO SCH (18:34)
[2021-12-21] MEDS: METOPROLOL SUCCINATE (ER) 25 MG TAB.ER.24H PO SCH (19:23)
[2021-12-21] MEDS: HEPARIN SOD,PORK IN 0.45% NACL 25,000 UNIT in 0.45% NACL 1 250ML.BAG IV SCH (19:24)
[2021-12-21] MEDS: WARFARIN 3 MG TAB PO SCH (19:24)
[2021-12-21] MEDS ORDERED: LORazepam 2 MG/ML INJ IV STA (22:10)
[2021-12-21 23:55] LABS: Glucose,Whole Blood 138 mg/dL (75-99)
[2021-12-22] MEDS ORDERED: METOPROLOL SUCCINATE (ER) 25 MG TAB.ER.24H PO STA (02:24)
[2021-12-22] MEDS: 1: MVI, ADULT NO.4 WITH VIT K 10 ML, TRACE (CONC-1ML/DOSE) 1 ML, PARENTERAL ELECTROLYTES IV SCH ×15 (05:37→23:47)
[2021-12-22 05:54] LABS: Glucose,Whole Blood 120 mg/dL (75-99)
[2021-12-22] MEDS: INSULIN ASPART (NovoLOG) 100 UNIT/ML VIAL SQ SCH ×4 (05:57→23:57)
[2021-12-22] MEDS: PANTOPRAZOLE 40 MG/10 ML VIAL IV SCH (08:47)
[2021-12-22] MEDS: metroNIDAZOLE-NS PMX 500 MG in SALINE 1 100ML.BAG IVPB SCH ×3 (08:47→23:47)
[2021-12-22] MEDS: MEGESTROL 40 MG TAB PO SCH ×4 (08:48→22:04)
[2021-12-22] MEDS: LOPERAMIDE 2 MG CAP PO SCH ×4 (08:48→22:04)
[2021-12-22] MEDS: FUROSEMIDE 10 MG/ML 4 ML VIAL IV SCH ×2 (08:48→22:05)
[2021-12-22] MEDS: METOPROLOL SUCCINATE (ER) 25 MG TAB.ER.24H PO SCH (08:48)
[2021-12-22 08:49] LABS: Anisocytosis Slight; Basophils # (A) 0.1 k/uL (0-0.2); Basophils % (A) 1 %; Eosinophils # (A) 0.3 k/uL (0-0.7); Eosinophils % (A) 2 %; HCT 25.7 % (34.0-46.0); HGB 7.3 gm/dL (11.4-16.0); Hypochromasia Marked; Lymphocytes # (A) 1.5 k/uL (1.0-4.8); Lymphocytes % (A) 13 %; MCH 29.1 pg (25.0-35.0); MCHC 28.6 g/dL (31.0-37.0); MCV 101.8 fL (80.0-100.0); Macrocytosis Moderate; Mean Platelet Volume 8.5; Monocytes # (A) 0.7 k/uL (0-1.0); Monocytes % (A) 6 %; Neutrophils # (A) 8.5 k/uL (1.3-7.7); Neutrophils % (A) 74 %; Platelet Count 207 k/uL (150-450); RBC 2.52 m/uL (3.80-5.40); RDW 17.1 % (11.5-15.5); WBC 11.4 k/uL (3.8-10.6)
[2021-12-22 08:52] VITALS: BMI 53.4
[2021-12-22 09:03] LABS: Calcium 8.6 mg/dL (8.4-10.2); Magnesium 1.7 mg/dL (1.6-2.3); Phosphorus 2.7 mg/dL (2.5-4.5); Potassium 4.1 mmol/L (3.5-5.1)
[2021-12-22] MEDS ORDERED: DIPHENOX-ATROP 2.5-0.025 MG 1 EACH TAB PO PRN (10:08)
[2021-12-22] MEDS: CHOLESTYRAMINE (WITH SUGAR) 4 GM PACKET PO SCH ×2 (10:28→17:05)
[2021-12-22] MEDS: ACETAMINOPHEN TAB 325 MG TAB PO PRN ×2 (10:31→17:06)
[2021-12-22 12:07] LABS: Glucose,Whole Blood 165 mg/dL (75-99)
--- NOTE | 2021-12-22 12:59 | P.PN ---
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 Pain level is actually improved quite a bit today, patient is more alert, more energetic, more conversant and interactive. She ended up declining blood transfusion as ordered yesterday. Her hemoglobin has trended down slightly today but is still barely above 7. She is tolerating scant regular food, appetite remains poor. Loose bowel movements or tapering off, antibiotics were recently adjusted by infectious disease service. She was seen and assessed by the hospice team and arrangements are being made for discharge home with home hospice care on Friday. Objective - Vital Signs Vital signs: Vital Signs Temp 98.0 F 12/22/21 11:08 Pulse 78 12/22/21 11:08 Resp 20 12/22/21 11:08 BP 122/76 12/22/21 11:08 Pulse Ox 98 12/22/21 11:08 Intake & Output 12/21/21 12/22/21 12/22/21 18:59 06:59 18:59 Intake Total 480 918.333 240 Output Total 1550 800 Balance -1070 118.333 240 Weight 132.5 kg Intake: Intake, IV Titration 918.333 Amount Parenteral Electrolytes 918.333 20 ml Potassium Chloride 40 meq In Amino Acids 5 % /Dextrose 20 % 1,000 ml @ 50 mls/hr IV .BY DURATION [facility] Rx#: [id number] Oral 480 240 Output: Urine 1550 800 Other: Voiding Method Indwelling Catheter Indwelling Catheter Indwelling Catheter # Bowel Movements 1 1 1 ABP, PAP, CO, CI - Last Documented Arterial Blood Pressure 136/60 - Constitutional General appearance: Present: morbidly obese - EENT Eyes: Present: PERRLA ENT: Present: hearing grossly normal - Respiratory Respiratory: bilateral: CTA - Cardiovascular Rhythm: regular - Gastrointestinal Gastrointestinal Comment(s): Abdomen is soft, minimal if any incisional tenderness, no guarding rebound or distention. Wound vacs in place to suction without leak. - Neurologic Neurologic: Present: CNII-XII intact - Musculoskeletal Musculoskeletal: Present: generalized weakness - Psychiatric Psychiatric: Present: A&O x's 3, appropriate affect, intact judgment & insight - Labs CBC & Chem 7: 12/22/21 08:06 12/22/21 08:06 Labs: Abnormal Lab Results - Last 24 Hours (Table) 12/21/21 12/21/21 12/21/21 Range/Units 15:32 16:31 16:55 WBC (3.8-10.6) k/uL RBC (3.80-5.40) m/uL Hgb (11.4-16.0) gm/dL Hct (34.0-46.0) % MCV (80.0-100.0) fL MCHC (31.0-37.0) g/dL RDW (11.5-15.5) % Neutrophils # (1.3-7.7) k/uL APTT 21.3 L (22.0-30.0) sec Chloride (98-107) mmol/L BUN (7-17) mg/dL Creatinine (0.52-1.04) mg/dL Glucose (74-99) mg/dL POC Glucose (mg/dL) 133 H (75-99) mg/dL Crossmatch See Detail 12/21/21 12/21/21 12/22/21 Range/Units 22:15 23:54 05:53 WBC (3.8-10.6) k/uL RBC (3.80-5.40) m/uL Hgb (11.4-16.0) gm/dL Hct (34.0-46.0) % MCV (80.0-100.0) fL MCHC (31.0-37.0) g/dL RDW (11.5-15.5) % Neutrophils # (1.3-7.7) k/uL APTT 18.7 L (22.0-30.0) sec Chloride (98-107) mmol/L BUN (7-17) mg/dL Creatinine (0.52-1.04) mg/dL Glucose (74-99) mg/dL POC Glucose (mg/dL) 138 H 120 H (75-99) mg/dL Crossmatch 12/22/21 12/22/21 12/22/21 Range/Units 08:06 08:06 12:05 WBC 11.4 H (3.8-10.6) k/uL RBC 2.52 L (3.80-5.40) m/uL Hgb 7.3 L (11.4-16.0) gm/dL Hct 25.7 L (34.0-46.0) % MCV 101.8 H (80.0-100.0) fL MCHC 28.6 L (31.0-37.0) g/dL RDW 17.1 H (11.5-15.5) % Neutrophils # 8.5 H (1.3-7.7) k/uL APTT (22.0-30.0) sec Chloride 112 H (98-107) mmol/L BUN 79 H (7-17) mg/dL Creatinine 2.57 H (0.52-1.04) mg/dL Glucose 140 H (74-99) mg/dL POC Glucose (mg/dL) 165 H (75-99) mg/dL Crossmatch Assessment and Plan Assessment: 1) 71-year-old lady status post exploratory laparotomy with 30 cm segmental small bowel resection for ischemia, necrosis and perforation, subsequent 220 cm small bowel resection for full-thickness necrosis on second look, subsequent anastomosis and primary closure on third look. Wound VAC dressing placement for soft tissue wound at risk for infection and subsequent underlying fascial dehiscence. Persistent loose bowel movements, Clostridium difficile screen ne gative, improving on loperamide and with antibiotic adjustment. Poor oral intake, presently on TPN. 2) Physical deconditioning, malaise and low hemoglobin. Suspect largely dilutional. 3) Oral anticoagulation on Coumadin for remote history of DVT, pulmonary embolus and hypercoagulable state with MTHFR mutation. 4) Super morbid obesity with BMI in excess of 50. 5) Chronic congestive heart failure, long-standing atrial fibrillation, stage IV chronic kidney disease and cardiorenal syndrome. Plan: Agree with home hospice recommendations. Continue with wound VAC with dressing changes Friday if possible. Things will be much more manageable with wound VAC in place and she'll have a shot at healing. I feel that its really necessary to continue with the wound VAC to prevent infection, abdominal dehiscence, and evisceration. Antibiotics per ID, no further surgical interventions planned. Will reassess at your request. Follow-up with Dr. Valente or Dr. fletcher in the general surgery clinic 1 week post discharge if possible. Time with Patient: Greater than 30
[2021-12-22 16:30] LABS: Glucose,Whole Blood 172 mg/dL (75-99)
--- NOTE | 2021-12-22 16:47 | P.PN ---
Subjective Patient is seen for follow-up for acute kidney injury. She had been maintained on dialysis. Dialysis currently on hold patient has had good urine output. Serum creatinine fairly stable. Ex Patient is awake comfortable. Family is present at bedside. There are plans for discharge with hospice tomorrow. Objective - Vital Signs Vital signs: Vital Signs Temp 98.0 F 12/22/21 11:08 Pulse 78 12/22/21 14:00 Resp 20 12/22/21 14:00 BP 122/76 12/22/21 11:08 Pulse Ox 98 12/22/21 11:08 Intake & Output 12/21/21 12/22/21 12/22/21 18:59 06:59 18:59 Intake Total 480 918.333 690 Output Total 0573 492 0709 Balance -1070 118.333 -310 Weight 132.5 kg Intake: Intake, IV Titration 918.333 Amount Parenteral Electrolytes 918.333 20 ml Potassium Chloride 40 meq In Amino Acids 5 % /Dextrose 20 % 1,000 ml @ 50 mls/hr IV .BY DURATION [facility] Rx#: [id number] Oral 480 690 Output: Urine 6568 653 0684 Other: Voiding Method Indwelling Catheter Indwelling Catheter Indwelling Catheter # Bowel Movements 1 1 1 ABP, PAP, CO, CI - Last Documented Arterial Blood Pressure 136/60 - Exam The patient is awake. She is comfortable. Examination of the heart S1 and S2 Examination lungs bilateral breath sounds are heard Abdomen is soft wound is dressed with wound VAC Examination lower extremities shows 1+ edema [employer] exam, moving all 4 extremities. - Labs CBC & Chem 7: 12/22/21 08:06 12/22/21 08:06 Labs: Abnormal Lab Results - Last 24 Hours (Table) 12/21/21 12/21/21 12/21/21 Range/Units 15:32 16:31 16:55 WBC (3.8-10.6) k/uL RBC (3.80-5.40) m/uL Hgb (11.4-16.0) gm/dL Hct (34.0-46.0) % MCV (80.0-100.0) fL MCHC (31.0-37.0) g/dL RDW (11.5-15.5) % Neutrophils # (1.3-7.7) k/uL APTT 21.3 L (22.0-30.0) sec Chloride (98-107) mmol/L BUN (7-17) mg/dL Creatinine (0.52-1.04) mg/dL Glucose (74-99) mg/dL POC Glucose (mg/dL) 133 H (75-99) mg/dL Crossmatch See Detail 12/21/21 12/21/21 12/22/21 Range/Units 22:15 23:54 05:53 WBC (3.8-10.6) k/uL RBC (3.80-5.40) m/uL Hgb (11.4-16.0) gm/dL Hct (34.0-46.0) % MCV (80.0-100.0) fL MCHC (31.0-37.0) g/dL RDW (11.5-15.5) % Neutrophils # (1.3-7.7) k/uL APTT 18.7 L (22.0-30.0) sec Chloride (98-107) mmol/L BUN (7-17) mg/dL Creatinine (0.52-1.04) mg/dL Glucose (74-99) mg/dL POC Glucose (mg/dL) 138 H 120 H (75-99) mg/dL Crossmatch 12/22/21 12/22/21 12/22/21 Range/Units 08:06 08:06 12:05 WBC 11.4 H (3.8-10.6) k/uL RBC 2.52 L (3.80-5.40) m/uL Hgb 7.3 L (11.4-16.0) gm/dL Hct 25.7 L (34.0-46.0) % MCV 101.8 H (80.0-100.0) fL MCHC 28.6 L (31.0-37.0) g/dL RDW 17.1 H (11.5-15.5) % Neutrophils # 8.5 H (1.3-7.7) k/uL APTT (22.0-30.0) sec Chloride 112 H (98-107) mmol/L BUN 79 H (7-17) mg/dL Creatinine 2.57 H (0.52-1.04) mg/dL Glucose 140 H (74-99) mg/dL POC Glucose (mg/dL) 165 H (75-99) mg/dL Crossmatch 12/22/21 Range/Units 16:26 WBC (3.8-10.6) k/uL RBC (3.80-5.40) m/uL Hgb (11.4-16.0) gm/dL Hct (34.0-46.0) % MCV (80.0-100.0) fL MCHC (31.0-37.0) g/dL RDW (11.5-15.5) % Neutrophils # (1.3-7.7) k/uL APTT (22.0-30.0) sec Chloride (98-107) mmol/L BUN (7-17) mg/dL Creatinine (0.52-1.04) mg/dL Glucose (74-99) mg/dL POC Glucose (mg/dL) 172 H (75-99) mg/dL Crossmatch Assessment and Plan Assessment: 1. Acute kidney injury ATN currently oliguric secondary to hypotension. Started HD on 12/12/2021. Dialysis currently on hold and renal function is fairly stable. 2. Chronic kidney disease stage IV secondary to cardiorenal syndrome creatinine 2-2.5 mg/dL. No evidence of proteinuria on UA No hydronephrosis on CAT scan 3. Strangulated abdominal wall hernia with bowel necrosis status post explorative laparotomy with bowel resection and excision of umbilical hernia s ac. Taken back to OR on 12/11/2021 with further resection of the bowel and again on 12/12/2021. Patient had ileocolonic anastomosis and a wound VAC was placed. 4. Chronic A. fib with episodes of tachycardia, currently being treated with IV Lopressor. 5. Cardiomyopathy with ejection fraction of 40-45% previously 6. Hyperkalemia associated with acute kidney injury, improved with dialysis 7 Shock related to intra-abdominal source. Currently improved Plan: Continue with IV Lasix.
[2021-12-22] MEDS: HEPARIN SOD,PORK IN 0.45% NACL 25,000 UNIT in 0.45% NACL 1 250ML.BAG IV SCH (16:56)
[2021-12-22] MEDS: WARFARIN 3 MG TAB PO SCH (17:06)
--- NOTE | 2021-12-22 17:31 | P.PN ---
Subjective Progress Note Date: 12/22/21 (delayed charting seen at approx 0915) Principal diagnosis: abdominal pain Patient is a 71-year-old female with a history of A. fib anticoagulated on Coumadin, history of prior pulmonary embolism and DVT with known MTHFR, systolic congestive heart failure with ejection fraction 45-50% (recovered from 30-35%) and chronic kidney disease stage IV following with nephrology on an outpatient basis who presented for abdominal wall hernia that is no longer reducible. On arrival she was found to be tachycardic. Laboratory analysis showed a white blood cell count of 13.8, creatinine was near her baseline at 2.13 consistent with her chronic kidney disease stage IV, glucose was mildly elevated at 153 on the laboratory analysis is otherwise unremarkable. She underwent a CT abdomen and pelvis which demonstrated a large lower anterior abdominal wall ventral hernia containing multiple bowel loops without signs of obstruction. In the emergency department she was started on Zosyn, IV fluids, and pain medications. She was placed in observation for further surgical evaluation. She underwent urgery surgical intervention with exploratory laparotomy and small bowel rese ction and reduction of ventral hernia. She was transferred to the ICU with temporary abdominal closure device in place and intubated. Patient ultimately required an additional second look with resection of 220 cm of necrotic small bowel, right hemicolectomy, and temporary abdominal closure on 12/11/21. She then went back to the OR for a third time resulting in a side to side antimesenteric ileocolonic anastomosis with closure of mesenteric defect, fascial block, and primary fascial closure. During her hospital stay she was followed by infectious disease, cardiology, neurology, and nephrology. She developed KATIA requiring HD, which was able to be stopped on 12/17. She had signifcant diarrhea post-op and her antibiotcs were switched, differential is negative, she was started on Imodium. She also had poor oral intake and was thought she likely had short bowel syndrome. She was subsequently started on TPN. She continued to require a wound VAC and fecal management system. Her hemodialysis catheter was removed on 12/21 as well as her central line. She had a PICC line placed on 12/20/2021. She has had slow continued improvement. On 12/21 patient is feeling frustrated and did not want to keep undergoing medical care. She went to speak with a presyncopal home to pass. Discussions were had with family and the patient. This appears reasonable she likely would have been very long recovery course. It is possible that she will need TPN life long due to her bowel resection. She is also having significant shortness Syndrome that has been unable to be managed. Hospice was consulted. Arrangements are being made to go home with hospice. Images: CT abdomen and pelvis: Very large lower anterior abdominal wall ventral hernia containing multiple loops of bowel without signs of obstruction, renal atrophy, large fat-containing umbilical hernia, left-sided abdominal wall hernia, dilated gallbladder suggestive of gallbladder dysfunction, mild bilateral pleural effusions. Echocardiogram: Ejection fraction 20-25% Patient seen and examined at bedside. She is feeling at peace today. Pain is 10/10 but less rectal pain, not anxious. Family present at bedside. General: Ill-appearing, appears older than stated age, obese, moderate distress Derm: warm, dry Head: atraumatic, normocephalic, symmetric Eyes: EOMI, no lid lag, anicteric sclera Mouth: no lip lesion, mucus membranes moist Cardiovascular: S1S2 reg, no murmur, positive posterior tibial pulse bilateral, Lungs: CTA bilateral, no rhonchi, no rales , no accessory muscle use Abdominal: soft, wound VAC in place, tender to palpation diffusely, unable to assess for organomegaly secondary to morbid obesity. Ext: no gross muscle atrophy, 1+ edema, no contractures Neuro: CN II-XI grossly intact, no focal neuro deficits Psych: Alert, oriented, upset, crying, distraught Assessment/plan: Septic Shock from Small Bowel Necrosis and Perforation Strangulated abdominal wall hernia to the left of the umbilicus containing loops of bowel -December 09 status post exploratory laparotomy, excision of umbilicus hernia sac, small bowel resection, reduction of ventral hernia, and wound VAC placement. -December 11 Second Look laparotomy with abdominal exploration, resection of 220 cm necrotic small bowel segment, right hemicolectomy, temporary abdominal closure with Apthera VAC. -December 12 Third look exploratory laparotomy with [id number] antimesenteric ileocolonic anastomosis with closure of mesenteric defect, fascial block, primary fascial closure, application of negative pressure wound VAC dressing over 20 x 20 x 5 cm midline surgical soft tissue wound. -Infectious disease recommendations appreciated - no coumadin as patient transitioning to hospice -Rocephin and Flagyl. - TPN - encourage oral intake - wound vac changes m/w/f Diarrhea due to short bowel syndrome - c diff negative - would consider codeine but patient is on oxycodone and ALLERGIC to codeine - GI recs appreciated, cholestyramine added - transition to lomotil - continue with TPN Atrial fibrillation with RVR -Lopressor 25 twice a day Acute blood loss anemia, iron deficiency -Anticipated outcome of surgery -Follow CBC - IV iron avoided due to intra-abdoinal infction - aranesp Cardiomyopathy with ejection fraction 20-25% with acurte exacerbation - on IV lasix (nephrology) -Not chronically on CHARLES inhibitor -Lopressor 25 twice a day and titrate as needed -Continue with tele - cardiology recs appreicated, await repaeat echo Acute kidney injury possibly secondary to ATN Chronic kidney disease stage IV -Started hemodialysis December 12 last HD 12/17 -Hemodialysis on hold per nephrology -Currently on Lasix, good urine output. Hypercoaguability with MTHFR History of DVT and pulmonary embolism -no coumadin Severe obesity with BMI 52.1 - anticipate weight loss due to short gut History of osteoarthritis. History of uterine cancer. History of gout. Plan is for home with hospice. Arrangements being made today for supplies at home and then plan is home in AM. Family and patient agree with plan. DVT prophylaxis: heparin Discussed with: patient, nursing, family Anticipated discharge:in AM Anticipated discharge place: hospice A total of 35 minutes was spent on the care of this complex patient more than 50% of the time was spent in counseling and care coordination. Objective - Vital Signs Vital signs: Vital Signs Temp 98.0 F 12/22/21 11:08 Pulse 78 12/22/21 14:00 Resp 20 12/22/21 14:00 BP 122/76 12/22/21 11:08 Pulse Ox 98 12/22/21 11:08 Intake & Output 12/21/21 12/22/21 12/22/21 18:59 06:59 18:59 Intake Total 480 918.333 690 Output Total 2489 506 7281 Balance -1070 118.333 -310 Weight 132.5 kg Intake: Intake, IV Titration 918.333 Amount Parenteral Electrolytes 918.333 20 ml Potassium Chloride 40 meq In Amino Acids 5 % /Dextrose 20 % 1,000 ml @ 50 mls/hr IV .BY DURATION [facility] Rx#: [id number] Oral 480 690 Output: Urine 2121 704 2610 Other: Voiding Method Indwelling Catheter Indwelling Catheter Indwelling Catheter # Bowel Movements 1 1 1 ABP, PAP, CO, CI - Last Documented Arterial Blood Pressure 136/60 - Labs CBC & Chem 7: 12/22/21 08:06 12/22/21 08:06 Labs: Abnormal Lab Results - Last 24 Hours (Table) 12/21/21 12/21/21 12/21/21 Range/Units 16:55 22:15 23:54 WBC (3.8-10.6) k/uL RBC (3.80-5.40) m/uL Hgb (11.4-16.0) gm/dL Hct (34.0-46.0) % MCV (80.0-100.0) fL MCHC (31.0-37.0) g/dL RDW (11.5-15.5) % Neutrophils # (1.3-7.7) k/uL APTT 21.3 L 18.7 L (22.0-30.0) sec Chloride (98-107) mmol/L BUN (7-17) mg/dL Creatinine (0.52-1.04) mg/dL Glucose (74-99) mg/dL POC Glucose (mg/dL) 138 H (75-99) mg/dL 12/22/21 12/22/21 12/22/21 Range/Units 05:53 08:06 08:06 WBC 11.4 H (3.8-10.6) k/uL RBC 2.52 L (3.80-5.40) m/uL Hgb 7.3 L (11.4-16.0) gm/dL Hct 25.7 L (34.0-46.0) % MCV 101.8 H (80.0-100.0) fL MCHC 28.6 L (31.0-37.0) g/dL RDW 17.1 H (11.5-15.5) % Neutrophils # 8.5 H (1.3-7.7) k/uL APTT (22.0-30.0) sec Chloride 112 H (98-107) mmol/L BUN 79 H (7-17) mg/dL Creatinine 2.57 H (0.52-1.04) mg/dL Glucose 140 H (74-99) mg/dL POC Glucose (mg/dL) 120 H (75-99) mg/dL 12/22/21 12/22/21 Range/Units 12:05 16:26 WBC (3.8-10.6) k/uL RBC (3.80-5.40) m/uL Hgb (11.4-16.0) gm/dL Hct (34.0-46.0) % MCV (80.0-100.0) fL MCHC (31.0-37.0) g/dL RDW (11.5-15.5) % Neutrophils # (1.3-7.7) k/uL APTT (22.0-30.0) sec Chloride (98-107) mmol/L BUN (7-17) mg/dL Creatinine (0.52-1.04) mg/dL Glucose (74-99) mg/dL POC Glucose (mg/dL) 165 H 172 H (75-99) mg/dL
[2021-12-22] MEDS: ONDANSETRON 4 MG/2 ML VIAL IVP PRN (18:59)
[2021-12-22] MEDS ORDERED: METOCLOPRAMIDE 5 MG/ML 2 ML VIAL IVP STA (20:30)
--- NOTE | 2021-12-22 23:10 | P.PN ---
Subjective Progress Note Date: 12/22/21 Principal diagnosis: Abdominal sepsis Patient is a 71 year female admitted to the hospital with abdominal pain has been diagnosis stimulated went hernia with ischemic bowel and perforation in this patient who is status post initial surgery with reduction of hernia and resection of the ischemic portion of small bowel patient was taken back to the OR on 12/12/2021 and the patient is status post [id number] antimesenteric ileocolonic anastomosis with closure of mesenteric defect and application of wound VAC. On today's evaluation that is 12/22/2021, the patient denies any fever or chills, the patient is more awake and alert today and denies any chest pain shortness of breath and is breathing comfortably on room air, the patient abdominal pain is currently controlled and no nausea and diarrhea has decreased in frequency Objective - Vital Signs Vital signs: Vital Signs Temp 98.0 F 12/22/21 11:08 Pulse 78 12/22/21 14:00 Resp 20 12/22/21 14:00 BP 122/76 12/22/21 11:08 Pulse Ox 98 12/22/21 11:08 Intake & Output 12/21/21 12/22/21 12/22/21 18:59 06:59 18:59 Intake Total 480 918.333 690 Output Total 9160 782 9267 Balance -1070 118.333 -310 Weight 132.5 kg Intake: Intake, IV Titration 918.333 Amount Parenteral Electrolytes 918.333 20 ml Potassium Chloride 40 meq In Amino Acids 5 % /Dextrose 20 % 1,000 ml @ 50 mls/hr IV .BY DURATION [facility] Rx#: [id number] Oral 480 690 Output: Urine 6847 360 9671 Other: Voiding Method Indwelling Catheter Indwelling Catheter Indwelling Catheter # Bowel Movements 1 1 1 ABP, PAP, CO, CI - Last Documented Arterial Blood Pressure 136/60 - Exam GENERAL DESCRIPTION: An elderly female lying in bed RESPIRATORY SYSTEM: Unlabored breathing , decreased breath sounds at bases HEART: S1 S2 regular rate and rhythm , ABDOMEN: Soft , midline abdominal wound is covered with a wound VAC EXTREMITIES: No edema feet - Labs CBC & Chem 7: 12/22/21 08:06 12/22/21 08:06 Labs: Abnormal Lab Results - Last 24 Hours (Table) 12/21/21 12/21/21 12/21/21 Range/Units 15:32 16:31 16:55 WBC (3.8-10.6) k/uL RBC (3.80-5.40) m/uL Hgb (11.4-16.0) gm/dL Hct (34.0-46.0) % MCV (80.0-100.0) fL MCHC (31.0-37.0) g/dL RDW (11.5-15.5) % Neutrophils # (1.3-7.7) k/uL APTT 21.3 L (22.0-30.0) sec Chloride (98-107) mmol/L BUN (7-17) mg/dL Creatinine (0.52-1.04) mg/dL Glucose (74-99) mg/dL POC Glucose (mg/dL) 133 H (75-99) mg/dL Crossmatch See Detail 12/21/21 12/21/21 12/22/21 Range/Units 22:15 23:54 05:53 WBC (3.8-10.6) k/uL RBC (3.80-5.40) m/uL Hgb (11.4-16.0) gm/dL Hct (34.0-46.0) % MCV (80.0-100.0) fL MCHC (31.0-37.0) g/dL RDW (11.5-15.5) % Neutrophils # (1.3-7.7) k/uL APTT 18.7 L (22.0-30.0) sec Chloride (98-107) mmol/L BUN (7-17) mg/dL Creatinine (0.52-1.04) mg/dL Glucose (74-99) mg/dL POC Glucose (mg/dL) 138 H 120 H (75-99) mg/dL Crossmatch 12/22/21 12/22/21 12/22/21 Range/Units 08:06 08:06 12:05 WBC 11.4 H (3.8-10.6) k/uL RBC 2.52 L (3.80-5.40) m/uL Hgb 7.3 L (11.4-16.0) gm/dL Hct 25.7 L (34.0-46.0) % MCV 101.8 H (80.0-100.0) fL MCHC 28.6 L (31.0-37.0) g/dL RDW 17.1 H (11.5-15.5) % Neutrophils # 8.5 H (1.3-7.7) k/uL APTT (22.0-30.0) sec Chloride 112 H (98-107) mmol/L BUN 79 H (7-17) mg/dL Creatinine 2.57 H (0.52-1.04) mg/dL Glucose 140 H (74-99) mg/dL POC Glucose (mg/dL) 165 H (75-99) mg/dL Crossmatch Assessment and Plan (1) Sepsis Current Visit: Yes Status: Acute Code(s): A41.9 - SEPSIS, UNSPECIFIED ORGANISM SNOMED Code(s): 36552183 Plan: 1patient presented to hospital with abdominal pain and did have evidence of elevated white count tachycardia meeting criteria for sepsis sources incarcerated abdominal hernia with perforated small bowel status post resection and need to cover for the enteric gram-negative with a likely pathogen, patient was treated with Zosyn subsequently switched to Rocephin and Flagyl because of diarrhea 2- diarrhea likely antibiotic associated , seemed to have improved with Questran to continue Time with Patient: Less than 30
[2021-12-22 23:50] LABS: Glucose,Whole Blood 120 mg/dL (75-99)
[2021-12-23] MEDS: INSULIN ASPART (NovoLOG) 100 UNIT/ML VIAL SQ SCH (06:09)
[2021-12-23 06:10] LABS: Glucose,Whole Blood 127 mg/dL (75-99)
[2021-12-23 06:18] LABS: Prothrombin Time 11.1 sec (9.0-12.0)
[2021-12-23 06:19] LABS: Calcium 8.5 mg/dL (8.4-10.2); Magnesium 1.7 mg/dL (1.6-2.3); Phosphorus 2.7 mg/dL (2.5-4.5); Potassium 4.1 mmol/L (3.5-5.1)
[2021-12-23 06:38] LABS: Anisocytosis Slight; Basophils % (A) 0 %; Eosinophils # (A) 0.3 k/uL (0-0.7); Eosinophils % (A) 3 %; HCT 20.5 % (34.0-46.0); Hypochromasia Marked; Lymphocytes # (A) 1.6 k/uL (1.0-4.8); Lymphocytes % (A) 17 %; MCH 29.5 pg (25.0-35.0); MCHC 30.4 g/dL (31.0-37.0); MCV 97.1 fL (80.0-100.0); Macrocytosis Slight; Mean Platelet Volume 9.1; Monocytes # (A) 0.5 k/uL (0-1.0); Monocytes % (A) 5 %; Neutrophils # (A) 6.6 k/uL (1.3-7.7); Neutrophils % (A) 71 %; Platelet Count 208 k/uL (150-450); RBC 2.11 m/uL (3.80-5.40); RDW 17.2 % (11.5-15.5); WBC 9.4 k/uL (3.8-10.6)
[2021-12-23 06:50] LABS: HGB 6.2 gm/dL (11.4-16.0)
[2021-12-23 08:16] VITALS: BP 113/63; PULSE 84; RESP 18; TEMP 98.4
[2021-12-23] MEDS: metroNIDAZOLE-NS PMX 500 MG in SALINE 1 100ML.BAG IVPB SCH ×2 (09:11→09:20)
[2021-12-23] MEDS: METOPROLOL SUCCINATE (ER) 25 MG TAB.ER.24H PO SCH (09:11)
[2021-12-23] MEDS: FUROSEMIDE 10 MG/ML 4 ML VIAL IV SCH (09:11)
[2021-12-23] MEDS: MEGESTROL 40 MG TAB PO SCH (09:11)
[2021-12-23] MEDS: PANTOPRAZOLE 40 MG/10 ML VIAL IV SCH (09:11)
[2021-12-23] MEDS: CHOLESTYRAMINE (WITH SUGAR) 4 GM PACKET PO SCH (09:12)
[2021-12-23] MEDS: LOPERAMIDE 2 MG CAP PO SCH (09:12)
--- NOTE | 2021-12-23 10:33 | P.DS ---
Providers Date of admission: 12/09/21 16:04 Expected date of discharge: 12/23/21 Attending physician: Nikki Baldwin MD Consults: 12/09/21 04:44 Consult Physician Routine Consulting Provider: Chapincito Amezcua Consult Reason/Comments: abdPain Do you want consulting provider notified?: Yes 12/09/21 16:45 Consult Physician Routine Consulting Provider: Janet Bauman Consult Reason/Comments: ICU management Do you want consulting provider notified?: Already Contacted 12/10/21 20:20 Consult Physician Urgent Consulting Provider: Bernarda Vera Consult Reason/Comments: Oliguria Do you want consulting provider notified?: Already Contacted 12/11/21 14:19 Consult Physician Routine Consulting Provider: Leonardo Daniel Consult Reason/Comments: HD catheter placement Do you want consulting provider notified?: Already Contacted 12/12/21 09:01 Consult Physician Routine Consulting Provider: Maira Barry Consult Reason/Comments: sepsis Do you want consulting provider notified?: Yes 12/21/21 11:09 Consult Physician Routine Consulting Provider: Caro Townsend Consult Reason/Comments: short bowel syndrome Do you want consulting provider notified?: Yes Primary care physician: MARY Willard Hospital Course: Discharge Diagnosis: Septic Shock from Small Bowel Necrosis and Perforation Strangulated abdominal wall hernia to the left of the umbilicus containing loops of bowel -December 09 status post exploratory laparotomy, excision of umbilicus hernia sac, small bowel resection, reduction of ventral hernia, and wound VAC placement. -December 11 Second Look laparotomy with abdominal exploration, resection of 220 cm necrotic small bowel segment, right hemicolectomy, temporary abdominal closure with Apthera VAC. -December 12 Third look exploratory laparotomy with [id number] antimesenteric ileocolonic anastomosis with closure of mesenteric defect, fascial block, primary fascial closure, application of negative pressure wound VAC dressing over 20 x 20 x 5 cm midline surgical soft tissue wound. 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 History of uterine cancer. History of gout. Hospital Course: Patient is a 71-year-old female with a history of A. fib anticoagulated on Coumadin, history of prior pulmonary embolism and DVT with known MTHFR, systolic congestive heart failure with ejection fraction 45-50% (recovered from 30-35%) and chronic kidney disease stage IV following with nephrology on an outpatient basis who presented for abdominal wall hernia that is no longer reducible. On arrival she was found to be tachycardic. Laboratory analysis showed a white blood cell count of 13.8, creatinine was near her baseline at 2.13 consistent with her chronic kidney disease stage IV, glucose was mildly elevated at 153 on the laboratory analysis is otherwise unremarkable. She underwent a CT abdomen and pelvis which demonstrated a large lower anterior abdominal wall ventral hernia containing multiple bowel loops without signs of obstruction. In the emergency department she was started on Zosyn, IV fluids, and pain medications. She was placed in observation for further surgical evaluation. She underwent urgery surgical intervention with exploratory laparotomy and small bowel resection and reduction of ventral hernia. She was transferred to the ICU with temporary abdominal closure device in place and intubated. Patient ultimately required an additional second look with resection of 220 cm of necrotic small bowel, right hemicolectomy, and temporary abdominal closure on 12/11/21. She then went back to the OR for a third time resulting in a side to side antimesenteric ileocolonic anastomosis with closure of mesenteric defect, fascial block, and primary fascial closure. During her hospital stay she was followed by infectious disease, cardiology, neurology, and nephrology. She developed KATIA requiring HD, which was able to be stopped on 12/17. She had signifcant diarrhea post-op and her antibiotcs were switched, differential is negative, she was started on Imodium. She also had poor oral intake and was thought she likely had short bowel syndrome. She was subsequently started on TPN. She continued to require a wound VAC and fecal management system. Her hemodialysis catheter was removed on 12/21 as well as her central line. She had a PICC line placed on 12/20/2021. She has had slow continued improvement. On 12/21 patient is feeling frustrated and did not want to keep undergoing medical care. She went to speak with a presyncopal home to pass. Discussions were had with family and the patient. This appears reasonable she likely would have been very long recovery course. It is possible that she will need TPN life long due to her bowel resection. She is also having significant shortness Syndrome that has been unable to be managed. Hospice was consulted. Arrangements were made to go home with hospice. Images: CT abdomen and pelvis: Very large lower anterior abdominal wall ventral hernia containing multiple loops of bowel without signs of obstruction, renal atrophy, large fat-containing umbilical hernia, left-sided abdominal wall hernia, dilated gallbladder suggestive of gallbladder dysfunction, mild bilateral pleural effusions. Echocardiogram: Ejection fraction 20-25% Follow-up: Hospice on dishcarge. All supplies delivered except wound vac. Will do wet to dry dressing changes until wound vac delivered as patient wants to be dsicharge. Continue with TPN, Lomitil as needed for dairrhea, and cholestyramine twice daily in addition to comfort medications. Patient seen and examined at bedside. Requesting to go home.Son presentat bedside. She doesn't care what her pain is she just wants to go home. General: Ill-appearing, appears older than stated age, obese, no distress Derm: warm, dry Head: atraumatic, normocephalic, symmetric Eyes: EOMI, no lid lag, anicteric sclera Mouth: no lip lesion, mucus membranes moist Cardiovascular: S1S2 reg, no murmur, positive posterior tibial pulse bilateral, Lungs: CTA bilateral, no rhonchi, no rales , no accessory muscle use Abdominal: soft, wound VAC in place, tender to palpation diffusely, unable to assess for organomegaly secondary to morbid obesity. - wound vac removed and patient with large wound exposed fat, wound relatively dry. Ext: no gross muscle atrophy, 1+ edema, no contractures Neuro: CN II-XI grossly intact, no focal neuro deficits Psych: Alert, oriented, upset, crying, distraught A total of 37 minutes of time were spent preparing this complex discharge summary . Patient Condition at Discharge: Good Plan - Discharge Summary Discharge Rx Participant: No New Discharge Prescriptions: New Diphenox-Atrop 2.5-0.025 mg [Lomotil] 1 each PO Q6HR PRN #120 tab PRN Reason: Diarrhea Cholestyramine (with Sugar) [Questran Packet] 4 gm PO BID@1000,1800 #60 packet Continue Allopurinol 100 mg PO BID Furosemide [Lasix] 40 mg PO DAILY Metoprolol Tartrate 12.5 mg PO BID Discontinued traMADol HCL [Tramadol HCl] 100 mg PO BID Warfarin [Coumadin] 2.5 mg PO MOTUTHFRSA@1800 Gabapentin [Neurontin] 100 mg PO BID Cholecalciferol [Vitamin D3 (25 Mcg = 1000 Iu)] 50 mcg PO DAILY Folic Acid 0.8 mg PO DAILY Discharge Medication List Allopurinol 100 mg PO BID 07/21/14 [History] Furosemide [Lasix] 40 mg PO DAILY 12/09/21 [History] Metoprolol Tartrate 12.5 mg PO BID 12/09/21 [History] Cholestyramine (with Sugar) [Questran Packet] 4 gm PO BID@1000,1800 #60 packet 12/23/21 [Rx] Diphenox-Atrop 2.5-0.025 mg [Lomotil] 1 each PO Q6HR PRN #120 tab 12/23/21 [Rx] Follow up Appointment(s)/Referral(s): Caro Townsend MD [STAFF PHYSICIAN] - 2 Weeks Danielle Murdock NPC [Primary Care Provider] - 1-2 days Activity/Diet/Wound Care/Special Instructions: Diet: regular Wound Care: wet to dry every 24 hours until wound vac is available Discharge Disposition: HOME WITH HOSPICE
--- NOTE | 2021-12-25 14:55 | ECHOF ---
Referral Reason:Repeat evaluate LV function MEASUREMENTS -------- HEIGHT: 157.5 cm WEIGHT: 132.4 kg BP: 106/64 IVSd: 1.6 cm (0.6 - 1.1) LVIDd: 4.7 cm (3.9 - 5.3) LVPWd: 1.3 cm (0.6 - 1.1) IVSs: 1.5 cm LVIDs: 3.8 cm LVPWs: 2.7 cm FINDINGS -------- Sinus rhythm. This was a technically difficult study with suboptimal views. The left ventricular size is normal. There is moderate concentric left ventricular hypertrophy. O verall left ventricular systolic function is moderately impaired with, an EF between 35 - 40 %. 5.0mg of Lumason was utilized for enhancement of images There is no pericardial effusion. CONCLUSIONS -------- 1. This was a technically difficult study with suboptimal views. 2. The left ventricular size is normal. 3. There is moderate concentric left ventricular hypertrophy. 4. Overall left ventricular systolic function is moderately impaired with, an EF between 35 - 40 %. STICK INSERTER: Татьяна Walsh RDCS
== END 2021-12-23 11:27 | disposition hospice, home (50) | DRG 853 ==
LOC: EC 02:08 → 4SSUR 04:44 → 2SICU 16:02 → OBSVTOIN 16:04 → 5NMEDONC 12-16 13:17 → 3SCARD 12-17 18:50
PROVIDERS: ADMIT Internal Medicine; ATTEND Internal Medicine
PROC: 3E043XZ Introduction of Vasopressor into Central Vein, Percutaneous Approach (ICD-10-PCS; 2021-12-09)
PROC: 02HV33Z Insertion of Infusion Device into Superior Vena Cava, Percutaneous Approach (ICD-10-PCS; 2021-12-09)
PROC: 0BH17EZ Insertion of Endotracheal Airway into Trachea, Via Natural or Artificial Opening (ICD-10-PCS; 2021-12-09)
PROC: 5A1955Z Respiratory Ventilation, Greater than 96 Consecutive Hours (ICD-10-PCS; 2021-12-09)
PROC: 0DH67UZ Insertion of Feeding Device into Stomach, Via Natural or Artificial Opening (ICD-10-PCS; 2021-12-09)
PROC: 3E0G76Z Introduction of Nutritional Substance into Upper GI, Via Natural or Artificial Opening (ICD-10-PCS; 2021-12-09)
PROC: 30233K1 Transfusion of Nonautologous Frozen Plasma into Peripheral Vein, Percutaneous Approach (ICD-10-PCS; 2021-12-09)
PROC: 0DB80ZZ Excision of Small Intestine, Open Approach (ICD-10-PCS; principal; 2021-12-09 15:00)
PROC: 0WQF0ZZ Repair Abdominal Wall, Open Approach (ICD-10-PCS; principal; 2021-12-09 15:00)
PROC: 0DB80ZZ Excision of Small Intestine, Open Approach (ICD-10-PCS; 2021-12-11)
PROC: 0DTF0ZZ Resection of Right Large Intestine, Open Approach (ICD-10-PCS; 2021-12-11)
PROC: 02HV33Z Insertion of Infusion Device into Superior Vena Cava, Percutaneous Approach (ICD-10-PCS; 2021-12-11)
PROC: 5A1D70Z Performance of Urinary Filtration, Intermittent, Less than 6 Hours Per Day (ICD-10-PCS; 2021-12-11)
PROC: 0WQF0ZZ Repair Abdominal Wall, Open Approach (ICD-10-PCS; 2021-12-12)
PROC: 0D1B0ZL Bypass Ileum to Transverse Colon, Open Approach (ICD-10-PCS; 2021-12-12)
PROC: 02HV33Z Insertion of Infusion Device into Superior Vena Cava, Percutaneous Approach (ICD-10-PCS; 2021-12-20)
PROC: 06PYX3Z Removal of Infusion Device from Lower Vein, External Approach (ICD-10-PCS; 2021-12-21)
DX: A41.9 Sepsis, unspecified organism (principal); R65.21 Severe sepsis with septic shock; N17.0 Acute kidney failure with tubular necrosis; I50.23 Acute on chronic systolic (congestive) heart failure; J96.00 Acute respiratory failure, unspecified whether with hypoxia or hypercapnia; K55.029 Acute infarction of small intestine, extent unspecified; K56.2 Volvulus; K65.1 Peritoneal abscess; K63.1 Perforation of intestine (nontraumatic); J96.01 Acute respiratory failure with hypoxia; D62 Acute posthemorrhagic anemia; D68.59 Other primary thrombophilia; E11.52 Type 2 diabetes mellitus with diabetic peripheral angiopathy with gangrene; E72.12 Methylenetetrahydrofolate reductase deficiency; E87.2 Acidosis; I13.0 Hypertensive heart and chronic kidney disease with heart failure and stage 1 through stage 4 chronic kidney disease, or unspecified chronic kidney disease; I42.8 Other cardiomyopathies; I48.21 Permanent atrial fibrillation; K42.0 Umbilical hernia with obstruction, without gangrene; I82.503 Chronic embolism and thrombosis of unspecified deep veins of lower extremity, bilateral; K43.6 Other and unspecified ventral hernia with obstruction, without gangrene; K91.2 Postsurgical malabsorption, not elsewhere classified; N18.4 Chronic kidney disease, stage 4 (severe); Z68.43 Body mass index [BMI] 50.0-59.9, adult; Z51.5 Encounter for palliative care; Z66 Do not resuscitate; I95.9 Hypotension, unspecified; D63.1 Anemia in chronic kidney disease; E11.22 Type 2 diabetes mellitus with diabetic chronic kidney disease; E11.65 Type 2 diabetes mellitus with hyperglycemia; E66.01 Morbid (severe) obesity due to excess calories; D50.9 Iron deficiency anemia, unspecified; E78.5 Hyperlipidemia, unspecified; E86.0 Dehydration; E87.5 Hyperkalemia; R19.7 Diarrhea, unspecified; E87.6 Hypokalemia; K82.8 Other specified diseases of gallbladder; T50.2X5A Adverse effect of carbonic-anhydrase inhibitors, benzothiadiazides and other diuretics, initial encounter; Z71.3 Dietary counseling and surveillance; Z79.01 Long term (current) use of anticoagulants; Z79.899 Other long term (current) drug therapy; Z82.49 Family history of ischemic heart disease and other diseases of the circulatory system; Z85.42 Personal history of malignant neoplasm of other parts of uterus; Z86.16 Personal history of COVID-19; Z87.01 Personal history of pneumonia (recurrent); Z86.711 Personal history of pulmonary embolism; Z88.5 Allergy status to narcotic agent; Z90.710 Acquired absence of both cervix and uterus; Z88.6 Allergy status to analgesic agent; Z98.890 Other specified postprocedural states; Z80.3 Family history of malignant neoplasm of breast
CPT/HCPCS: 36415; 36573; 71045; 74176; 80048; 80053; 81003; 82040; 82150; 82330; 82533; 82728; 82805; 83540; 83550; 83605; 83690; 83735; 84100; 84132; 84478; 85025; 85610; 85730; 86704; 86706; 86850; 86900; 86901; 86920; 87040; 87070; 87205; 87324; 87340; 88302; 88307; 90935; 93005; 93308; 94002; 94003; 96361; 96374; 96375; 99285